=== PATIENT | female | born 1955 | race Caucasian/White ===

== ENCOUNTER 2016-11-06 16:33 | Inpatient (IN) ==
[2016-11-06] MEDS ORDERED: Ipratropium/Albuterol Neb 3 ML ONE (16:39)
[2016-11-06] MEDS ORDERED: Ipratropium/Albuterol Neb 3 ML IH ONE (16:44)
[2016-11-06] MEDS ORDERED: methylPREDNISolone 125 MG/2 ML VIAL IVP ONE (16:44)
[2016-11-06] MEDS ORDERED: 0.9 % Sodium Chloride 1,000 ML IVC ONE (16:44)
--- NOTE | 2016-11-06 16:51 | Emergency Department Note ---
Disposition Clinical Impression: Hypoxia, PRICE (acute kidney injury), Respiratory failure Breast cancer Qualifiers: Breast location: unspecified site of breast Patient gender: female Laterality: unspecified laterality Qualified Code(s): C50.919 - Malignant neoplasm of unspecified site of unspecified female breast Disposition: Admitted As Inpatient Condition: Serious Referrals: NO,PCP [Non-Partnered Physician] - SOB HPI - General Stated Complaint: PRISCA, cancer patient Time Seen by Provider: 11/06/16 16:43 Source: patient Mode of arrival: wheelchair Limitations: no limitations Nursing Notes Reviewed: Yes Vital Signs Reviewed: Yes - History of Present Illness 60-year-old female with a history of breast malignancy receiving radiation therapy, COPD, hypertension presents for evaluation from the [facility] for concerns of hypoxia. Patient was noted have a room air saturation of 77% the [facility]. He does report that she is weak. Patient states she is not short of breath. Patient does note a cough that has been chronic related to her COPD. Patient denies any change in sputum. No fevers. Patient does not have home oxygen. Patient denies any chest pain. No nausea or vomiting. No Abdominal pain. Patient states that she was diagnosed with breast cancer in May. Patient also states she has a history of renal cancer in the remote past and has had one of her kidneys removed. - Related Data Home Medications Medication Instructions Recorded Confirmed Albuterol Sulfate [Proair 2 puff IH Q6H PRN 09/16/16 11/06/16 Respiclick] Aspirin [Lo-Dose Aspirin EC] 81 mg PO DAILY 09/16/16 11/06/16 Bisoprolol/HCTZ 6.25 [Ziac 1 each PO DAILY 09/16/16 11/06/16 106.25] Losartan Potassium [Cozaar] 50 mg PO DAILY 09/16/16 11/06/16 Simvastatin [Zocor] 20 mg PO HS 09/16/16 11/06/16 Tiotropium [Spiriva] 18 mcg IH 0700 09/16/16 11/06/16 Previous Rx's Medication Instructions Recorded HydrOXYzine Pamoate [Vistaril] 50 - 100 mg PO QID PRN #60 capsule 11/05/16 Allergies Allergy/AdvReac Type Severity Reaction Status Date / Time prednisone AdvReac See Verified 11/06/16 16:45 Comments All systems ED: reviewed and negative except as stated. Constitutional: Reports: as per HPI. Denies: fever Eyes: Reports: as per HPI ENT ED: Reports: as per HPI. Denies: congestion Cardiovascular: Reports: as per HPI. Denies: chest pain Respiratory: Reports: as per HPI, cough. Denies: dyspnea, wheezes, hemoptysis, sputum production Gastrointestinal: Reports: as per HPI. Denies: abdominal pain, nausea, vomiting Genitourinary: Reports: as per HPI Musculoskeletal: Reports: as per HPI Integumentary: Reports: as per HPI Neurological: Reports: as per HPI Psychiatric: Reports: as per HPI Endocrine: Reports: as per HPI Hematological/Lymphatic: Reports: as per HPI Past Medical History - Past Medical History Medical history: Reports: cancer, COPD, CVA, hyperlipidemia, hypertension Psychiatric history: Reports: no psych history - Social History Smoking Status: Current every day smoker Alcohol use: Reports: none Drug use: Reports: none Physical Exam - General Limitations: no limitations General appearance: alert, in no apparent distress - Head Head exam: normocephalic, normal inspection - Eye Eye exam: Present: normal appearance, EOMI - ENT ENT exam: normal exam, mucous membranes moist, other (Perioral cyanosis) - Neck Neck exam: Present: normal inspection, trachea midline - Chest Chest inspection: Present: normal inspection, symmetric chest wall rise - Respiratory Respiratory exam: Present: other (Diffusely decreased breath sounds). Absent: respiratory distress, accessory muscle use - Cardiovascular Cardiovascular exam: Present: regular rate, normal rhythm - Abdominal Exam Abdominal exam: Present: soft, Non-Tender - Extremities Exam Extremities exam: Present: normal inspection. Absent: pedal edema - Neurological Exam Neurological exam: Present: alert, oriented X3 - Skin Skin exam: Present: warm, dry, intact, normal color Course Course Narrative: Patient seen and examined. Patient had room air oxygen of 78%. Patient states that she is not short of breath. Patient denies chest pain. Patient will get a cardiac and pulmonary workup. Patient started on supplemental oxygen, aerosols, steroids. Patient will also get a VQ scan to rule out pulmonary embolism since she does have one kidney a CTA with contrast may cause more harm than benefit. - Reevaluation(s) Reevaluation #1: Patient started on BiPAP since her sats were not tolerating on Non rebreather. Time: 17:15 Reevaluation #2: Patient's troponin came back elevated at 0.7. Patient is given aspirin and started on heparin. Time: 17:54 Reevaluation #3: Patient appears to have some metabolic acidosis with a CO2 of 105. Spoke with the patient regarding her respiratory status. Patient was able to verbalize consequences of not being intubated. Patient is of sound mind. Patient continues to state that she is not short of breath. V/Q scan cannot be obtained while the patient is on BiPAP or intubation. Patient is started on heparin. Time: 18:02 Vital Signs Temperature 97.8 F 11/06/16 16:35 Pulse Rate 67 11/06/16 16:35 Respiratory Rate 18 11/06/16 16:35 Blood Pressure 147/82 11/06/16 16:35 O2 Sat by Pulse Oximetry 74 L 11/06/16 16:35 Temperature 97.8 F 11/06/16 16:35 Pulse Rate 68 11/06/16 16:56 Respiratory Rate 25 11/06/16 17:23 Blood Pressure 135/85 11/06/16 16:56 O2 Sat by Pulse Oximetry 93 L 11/06/16 17:23 Oxygen Delivery Oxygen Delivery Nasal Cannula Shortness of Breath/Dyspnea - Lab Data Result diagrams: 11/06/16 17:19 11/06/16 17:19 Lab Results 11/06/16 11/06/16 11/06/16 Range/Units 17:19 17:19 17:19 WBC 11.9 H (4.3-11.1) K/mcL RBC 5.25 H (3.82-4.97) M/mcL Hgb 15.0 (11.5-15.4) g/dL Hct 49.3 H (35.3-44.9) % MCV 93.9 (83.0-100.0) fL MCH 28.6 (28.0-33.3) pg MCHC 30.4 L (31.6-35.5) g/dL RDW 16.3 H (11.5-14.5) % Plt Count 231 (140-400) K/mcL MPV 10.1 (9.4-12.4) fL Immature Gran % 1.9 (0-4) % Seg Neutrophils % 79.6 % Lymphocytes % 8.0 % Monocytes % 10.1 % Eosinophils % 0.1 % Basophils % 0.3 % Neutrophils # 9.5 H (1.6-8.9) K/mcL Lymphocytes # 1.0 (0.6-4.6) K/mcL Monocytes # 1.2 (0.0-1.3) K/mcL Eosinophils # 0.0 (0.0-0.6) K/mcL Basophils # 0.0 (0.0-0.2) K/mcL Nucleated RBCs/100 WBC 1.3 H (0) /100 WBC Immature Plt Fraction 6.9 H (1.1-6.1) % PT (9.4-12.1) Seconds INR APTT (26.0-36.0) Seconds ABG pH (7.32-7.45) pH Units ABG pCO2 (35-45) mmHg ABG pO2 (85-104) mmHg ABG HCO3 (21-27) mEQ/L ABG Total CO2 (20-26) mEq/L ABG O2 Saturation (95-98) % ABG Base Excess (-2.0 to 3.0) mEq/L Blood Gas Modality Inspired O2 % Sodium 136 (136-145) mEq/L Potassium 5.1 H (3.5-4.5) mEq/L Chloride 96 L (98-109) mEq/L Carbon Dioxide 31 H (19-29) mEq/L BUN 53 H (7-20) mg/dL Creatinine 2.70 H (0.57-1.11) mg/dL Est GFR ( Amer) 22 L (> 60) Est GFR (Non-Af Amer) 18 L (> 60) BUN/Creatinine Ratio 20 (6-26) Glucose 89 (70-99) mg/dL Calculated Osmolality 296 (280-300) Lactic Acid 1.0 (0.5-2.2) mmol/L Calcium 8.5 L (8.6-10.8) mg/dL Troponin I (0-0.03) ng/mL B-Natriuretic Peptide (0-100) pg/mL 11/06/16 11/06/16 11/06/16 Range/Units 17:19 17:19 17:19 WBC (4.3-11.1) K/mcL RBC (3.82-4.97) M/mcL Hgb (11.5-15.4) g/dL Hct (35.3-44.9) % MCV (83.0-100.0) fL MCH (28.0-33.3) pg MCHC (31.6-35.5) g/dL RDW (11.5-14.5) % Plt Count (140-400) K/mcL MPV (9.4-12.4) fL Immature Gran % (0-4) % Seg Neutrophils % % Lymphocytes % % Monocytes % % Eosinophils % % Basophils % % Neutrophils # (1.6-8.9) K/mcL Lymphocytes # (0.6-4.6) K/mcL Monocytes # (0.0-1.3) K/mcL Eosinophils # (0.0-0.6) K/mcL Basophils # (0.0-0.2) K/mcL Nucleated RBCs/100 WBC (0) /100 WBC Immature Plt Fraction (1.1-6.1) % PT 13.9 H (9.4-12.1) Seconds INR 1.3 APTT 24.5 L (26.0-36.0) Seconds ABG pH (7.32-7.45) pH Units ABG pCO2 (35-45) mmHg ABG pO2 (85-104) mmHg ABG HCO3 (21-27) mEQ/L ABG Total CO2 (20-26) mEq/L ABG O2 Saturation (95-98) % ABG Base Excess (-2.0 to 3.0) mEq/L Blood Gas Modality Inspired O2 % Sodium (136-145) mEq/L Potassium (3.5-4.5) mEq/L Chloride (98-109) mEq/L Carbon Dioxide (19-29) mEq/L BUN (7-20) mg/dL Creatinine (0.57-1.11) mg/dL Est GFR ( Amer) (> 60) Est GFR (Non-Af Amer) (> 60) BUN/Creatinine Ratio (6-26) Glucose (70-99) mg/dL Calculated Osmolality (280-300) Lactic Acid (0.5-2.2) mmol/L Calcium (8.6-10.8) mg/dL Troponin I 0.76 H* (0-0.03) ng/mL B-Natriuretic Peptide 2717 H (0-100) pg/mL 11/06/16 Range/Units 17:27 WBC (4.3-11.1) K/mcL RBC (3.82-4.97) M/mcL Hgb (11.5-15.4) g/dL Hct (35.3-44.9) % MCV (83.0-100.0) fL MCH (28.0-33.3) pg MCHC (31.6-35.5) g/dL RDW (11.5-14.5) % Plt Count (140-400) K/mcL MPV (9.4-12.4) fL Immature Gran % (0-4) % Seg Neutrophils % % Lymphocytes % % Monocytes % % Eosinophils % % Basophils % % Neutrophils # (1.6-8.9) K/mcL Lymphocytes # (0.6-4.6) K/mcL Monocytes # (0.0-1.3) K/mcL Eosinophils # (0.0-0.6) K/mcL Basophils # (0.0-0.2) K/mcL Nucleated RBCs/100 WBC (0) /100 WBC Immature Plt Fraction (1.1-6.1) % PT (9.4-12.1) Seconds INR APTT (26.0-36.0) Seconds ABG pH 7.18 L* (7.32-7.45) pH Units ABG pCO2 105 H* (35-45) mmHg ABG pO2 86 (85-104) mmHg ABG HCO3 39.2 H (21-27) mEQ/L ABG Total CO2 42.4 H (20-26) mEq/L ABG O2 Saturation 94 L (95-98) % ABG Base Excess 6.0 H (-2.0 to 3.0) mEq/L Blood Gas Modality bipap Inspired O2 100 % Sodium (136-145) mEq/L Potassium (3.5-4.5) mEq/L Chloride (98-109) mEq/L Carbon Dioxide (19-29) mEq/L BUN (7-20) mg/dL Creatinine (0.57-1.11) mg/dL Est GFR ( Amer) (> 60) Est GFR (Non-Af Amer) (> 60) BUN/Creatinine Ratio (6-26) Glucose (70-99) mg/dL Calculated Osmolality (280-300) Lactic Acid (0.5-2.2) mmol/L Calcium (8.6-10.8) mg/dL Troponin I (0-0.03) ng/mL B-Natriuretic Peptide (0-100) pg/mL - EKG Data EKG attestation: Yes I reviewed and interpreted this EKG. EKG shows normal: Reports: sinus rhythm Rate: Reports: normal Rhythm: Reports: NSR [place]/QRS: Reports: normal, right axis deviation, RBBB T wave inversions noted in: Reports: v1, v2, v3 Interpretation: Reports: nonspecific ST-T wave changes S.[email or web address] - Latoya Situation: Demographics Background: Presenting Complaint Assessment: Vital Signs, Course and respsone to treatment, Patient/Family Expectation, Pertinant Lab Results Recommendation: Barrier(s) to disposition, Recommendation based on pending studies, treatments, or consults S.BZi Report Given to: Dr. Dimitri Klein Repor Time: 18:16
--- NOTE | 2016-11-06 17:24 | Emergency Department Note ---
Disposition Clinical Impression: Hypoxia, PRICE (acute kidney injury) Breast cancer Qualifiers: Breast location: unspecified site of breast Patient gender: female Laterality: unspecified laterality Qualified Code(s): C50.919 - Malignant neoplasm of unspecified site of unspecified female breast Respiratory failure Qualifiers: Chronicity: acute on chronic Respiratory failure complication: hypercapnia Qualified Code(s): J96.22 - Acute and chronic respiratory failure with hypercapnia Disposition: Admitted As Inpatient Condition: Serious Referrals: NO,PCP [Non-Partnered Physician] - General Adult HPI - General Chief complaint: ED Shortness of Breath/Dyspnea Stated complaint: PRISCA, cancer patient Time Seen by Provider: 11/06/16 16:43 Source: patient Mode of arrival: wheelchair Limitations: no limitations Nursing Notes Reviewed: Yes Vital Signs Reviewed: Yes - History of Present Illness Pain Scale: 0 - Related Data Home Medications Medication Instructions Recorded Confirmed Albuterol Sulfate [Proair 2 puff IH Q6H PRN 09/16/16 11/06/16 Respiclick] Aspirin [Lo-Dose Aspirin EC] 81 mg PO DAILY 09/16/16 11/06/16 Bisoprolol/HCTZ 10/6.25 [Ziac 1 each PO DAILY 09/16/16 11/06/16 10/6.25] Losartan Potassium [Cozaar] 50 mg PO DAILY 09/16/16 11/06/16 Simvastatin [Zocor] 20 mg PO HS 09/16/16 11/06/16 Tiotropium [Spiriva] 18 mcg IH 0700 09/16/16 11/06/16 Previous Rx's Medication Instructions Recorded HydrOXYzine Pamoate [Vistaril] 50 - 100 mg PO QID PRN #60 capsule 11/05/16 Allergies Allergy/AdvReac Type Severity Reaction Status Date / Time prednisone AdvReac See Verified 11/06/16 16:45 Comments Constitutional: Reports: as per HPI. Denies: fever Eyes: Reports: as per HPI ENT ED: Reports: as per HPI. Denies: congestion Cardiovascular: Reports: as per HPI. Denies: chest pain Respiratory: Reports: as per HPI, cough. Denies: dyspnea, wheezes, hemoptysis, sputum production Gastrointestinal: Reports: as per HPI. Denies: abdominal pain, nausea, vomiting Genitourinary: Reports: as per HPI Musculoskeletal: Reports: as per HPI Integumentary: Reports: as per HPI Neurological: Reports: as per HPI Psychiatric: Reports: as per HPI Endocrine: Reports: as per HPI Hematological/Lymphatic: Reports: as per HPI Past Medical History - Past Medical History Medical history: Reports: cancer, COPD, CVA, hyperlipidemia, hypertension Psychiatric history: Reports: no psych history - Social History Smoking Status: Current every day smoker Alcohol use: Reports: none Drug use: Reports: none Physical Exam - General Limitations: no limitations General appearance: alert, in no apparent distress Course Vital Signs Temperature 97.8 F 11/06/16 16:35 Pulse Rate 67 11/06/16 16:35 Respiratory Rate 18 11/06/16 16:35 Blood Pressure 147/82 11/06/16 16:35 O2 Sat by Pulse Oximetry 74 L 11/06/16 16:35 Temperature 97.8 F 11/06/16 16:35 Pulse Rate 68 11/06/16 16:56 Respiratory Rate 25 11/06/16 17:23 Blood Pressure 135/85 11/06/16 16:56 O2 Sat by Pulse Oximetry 93 L 11/06/16 17:23 Oxygen Delivery Oxygen Delivery Nasal Cannula Medical Decision Making - MDM Narrative Medical decision making narrative: I examined this patient and my medical decision-making was reviewed with the RIDING TEACHER/PA/Advanced Practice Nurse/Resident Physician. I agree with the documented findings, disposition and treatment plan as described except to the extent set forth below. Patient presents today from the cancer center she has breast cancer she is getting radiation for that. She said she felt more weak than usual they noticed that her vital signs are stable except she had an oxygen saturation of 70% she does hear also. She will she is really not dyspneic. She is at high risk for fibrosis or for PE. Urinary go) some BiPAP. Chest x-ray shows ET A we probably will give additionally has one kidney so more with the VQ scan instead. We will finish the workup on her and then reassess. She most likely will need admission. She is resting comfortably actually at this time. 1740 hrs.: Patient's well's score for pulmonary embolism is moderate. Sherly on a d-dimer is I am not certain that VQ is the best study for her animals not sure she can tolerate it. However CTA worries me with the dye load for her skin surgery has one kidney. As we get the results of the d-dimer were will further disposition her. 1800 hrs.: Patient's PCO2 is elevated. She is on BiPAP which are uncertain at that is, lower her down. We talked her about intubation which she does not want to do worsening ahead and start her on heparin at the thought that she could have a PE her kidneys will not tolerate a CTA nor were her BiPAP requirement allow her to do a VQ scan so we will bring her into the hospital here will speak to the hospitalist. 1805 hrs: Her troponin is elevated, but she has not had chest pain. Her BNP is elevated that her chest x-ray is not consistent with CHF. Her creatinine is elevated in the 2-1/2 range which she has had before so she should cannot get IV contrast for a PE study. Her #9 to the hospitalist. She will either need an ICU or to [facility]. She is starting heparin. Patient's agreement with this plan as is her family her critical care time excluding separately billable procedures is 45 minutes. - Lab Data Result diagrams: 11/06/16 17:19 11/06/16 17:19 Lab Results 11/06/16 11/06/16 11/06/16 Range/Units 17:19 17:19 17:19 WBC 11.9 H (4.3-11.1) K/mcL RBC 5.25 H (3.82-4.97) M/mcL Hgb 15.0 (11.5-15.4) g/dL Hct 49.3 H (35.3-44.9) % MCV 93.9 (83.0-100.0) fL MCH 28.6 (28.0-33.3) pg MCHC 30.4 L (31.6-35.5) g/dL RDW 16.3 H (11.5-14.5) % Plt Count 231 (140-400) K/mcL MPV 10.1 (9.4-12.4) fL Immature Gran % 1.9 (0-4) % Seg Neutrophils % 79.6 % Lymphocytes % 8.0 % Monocytes % 10.1 % Eosinophils % 0.1 % Basophils % 0.3 % Neutrophils # 9.5 H (1.6-8.9) K/mcL Lymphocytes # 1.0 (0.6-4.6) K/mcL Monocytes # 1.2 (0.0-1.3) K/mcL Eosinophils # 0.0 (0.0-0.6) K/mcL Basophils # 0.0 (0.0-0.2) K/mcL Nucleated RBCs/100 WBC 1.3 H (0) /100 WBC Immature Plt Fraction 6.9 H (1.1-6.1) % PT (9.4-12.1) Seconds INR APTT (26.0-36.0) Seconds ABG pH (7.32-7.45) pH Units ABG pCO2 (35-45) mmHg ABG pO2 (85-104) mmHg ABG HCO3 (21-27) mEQ/L ABG Total CO2 (20-26) mEq/L ABG O2 Saturation (95-98) % ABG Base Excess (-2.0 to 3.0) mEq/L Blood Gas Modality Inspired O2 % Sodium 136 (136-145) mEq/L Potassium 5.1 H (3.5-4.5) mEq/L Chloride 96 L (98-109) mEq/L Carbon Dioxide 31 H (19-29) mEq/L BUN 53 H (7-20) mg/dL Creatinine 2.70 H (0.57-1.11) mg/dL Est GFR ( Amer) 22 L (> 60) Est GFR (Non-Af Amer) 18 L (> 60) BUN/Creatinine Ratio 20 (6-26) Glucose 89 (70-99) mg/dL Calculated Osmolality 296 (280-300) Lactic Acid 1.0 (0.5-2.2) mmol/L Calcium 8.5 L (8.6-10.8) mg/dL Troponin I (0-0.03) ng/mL B-Natriuretic Peptide (0-100) pg/mL 11/06/16 11/06/16 11/06/16 Range/Units 17:19 17:19 17:19 WBC (4.3-11.1) K/mcL RBC (3.82-4.97) M/mcL Hgb (11.5-15.4) g/dL Hct (35.3-44.9) % MCV (83.0-100.0) fL MCH (28.0-33.3) pg MCHC (31.6-35.5) g/dL RDW (11.5-14.5) % Plt Count (140-400) K/mcL MPV (9.4-12.4) fL Immature Gran % (0-4) % Seg Neutrophils % % Lymphocytes % % Monocytes % % Eosinophils % % Basophils % % Neutrophils # (1.6-8.9) K/mcL Lymphocytes # (0.6-4.6) K/mcL Monocytes # (0.0-1.3) K/mcL Eosinophils # (0.0-0.6) K/mcL Basophils # (0.0-0.2) K/mcL Nucleated RBCs/100 WBC (0) /100 WBC Immature Plt Fraction (1.1-6.1) % PT 13.9 H (9.4-12.1) Seconds INR 1.3 APTT 24.5 L (26.0-36.0) Seconds ABG pH (7.32-7.45) pH Units ABG pCO2 (35-45) mmHg ABG pO2 (85-104) mmHg ABG HCO3 (21-27) mEQ/L ABG Total CO2 (20-26) mEq/L ABG O2 Saturation (95-98) % ABG Base Excess (-2.0 to 3.0) mEq/L Blood Gas Modality Inspired O2 % Sodium (136-145) mEq/L Potassium (3.5-4.5) mEq/L Chloride (98-109) mEq/L Carbon Dioxide (19-29) mEq/L BUN (7-20) mg/dL Creatinine (0.57-1.11) mg/dL Est GFR ( Amer) (> 60) Est GFR (Non-Af Amer) (> 60) BUN/Creatinine Ratio (6-26) Glucose (70-99) mg/dL Calculated Osmolality (280-300) Lactic Acid (0.5-2.2) mmol/L Calcium (8.6-10.8) mg/dL Troponin I 0.76 H* (0-0.03) ng/mL B-Natriuretic Peptide 2717 H (0-100) pg/mL 11/06/16 Range/Units 17:27 WBC (4.3-11.1) K/mcL RBC (3.82-4.97) M/mcL Hgb (11.5-15.4) g/dL Hct (35.3-44.9) % MCV (83.0-100.0) fL MCH (28.0-33.3) pg MCHC (31.6-35.5) g/dL RDW (11.5-14.5) % Plt Count (140-400) K/mcL MPV (9.4-12.4) fL Immature Gran % (0-4) % Seg Neutrophils % % Lymphocytes % % Monocytes % % Eosinophils % % Basophils % % Neutrophils # (1.6-8.9) K/mcL Lymphocytes # (0.6-4.6) K/mcL Monocytes # (0.0-1.3) K/mcL Eosinophils # (0.0-0.6) K/mcL Basophils # (0.0-0.2) K/mcL Nucleated RBCs/100 WBC (0) /100 WBC Immature Plt Fraction (1.1-6.1) % PT (9.4-12.1) Seconds INR APTT (26.0-36.0) Seconds ABG pH 7.18 L* (7.32-7.45) pH Units ABG pCO2 105 H* (35-45) mmHg ABG pO2 86 (85-104) mmHg ABG HCO3 39.2 H (21-27) mEQ/L ABG Total CO2 42.4 H (20-26) mEq/L ABG O2 Saturation 94 L (95-98) % ABG Base Excess 6.0 H (-2.0 to 3.0) mEq/L Blood Gas Modality bipap Inspired O2 100 % Sodium (136-145) mEq/L Potassium (3.5-4.5) mEq/L Chloride (98-109) mEq/L Carbon Dioxide (19-29) mEq/L BUN (7-20) mg/dL Creatinine (0.57-1.11) mg/dL Est GFR ( Amer) (> 60) Est GFR (Non-Af Amer) (> 60) BUN/Creatinine Ratio (6-26) Glucose (70-99) mg/dL Calculated Osmolality (280-300) Lactic Acid (0.5-2.2) mmol/L Calcium (8.6-10.8) mg/dL Troponin I (0-0.03) ng/mL B-Natriuretic Peptide (0-100) pg/mL
[2016-11-06 17:30] LABS: Basophils % 0.3 %; Eosinophils % 0.1 %; Hematocrit 49.3 % (35.3-44.9); Immature Granulocytes % 1.9 % (0-4); Immature Platelets 6.9 % (1.1-6.1); Mean Corpuscular HGB Conc 30.4 g/dL (31.6-35.5); Mean Corpuscular Hemoglobin 28.6 pg (28.0-33.3); Mean Corpuscular Volume 93.9 fL (83.0-100.0); Mean Platelet Volume 10.1 fL (9.4-12.4); Monocytes # 1.2 K/mcL (0.0-1.3); Monocytes % 10.1 %; Neutrophils # 9.5 K/mcL (1.6-8.9); Nucleated Red Blood Cells 1.3 /100 WBC (0); Platelet Count 231 K/mcL (140-400); Red Blood Count 5.25 M/mcL (3.82-4.97); Red Cell Distribution Width 16.3 % (11.5-14.5); Segmented Neutrophils % 79.6 %
[2016-11-06 17:41] LABS: INR 1.3; Prothrombin Time 13.9 Seconds (9.4-12.1)
[2016-11-06 17:42] LABS: Calcium 8.5 mg/dL (8.6-10.8); Potassium 5.1 mEq/L (3.5-4.5)
[2016-11-06 17:44] LABS: Activated Partial Thrombo Time 24.5 Seconds (26.0-36.0)
[2016-11-06] MEDS ORDERED: Aspirin 325 MG TABLET PO ONE (17:51)
[2016-11-06 17:53] LABS: ABG HCO3 39.2 mEQ/L (21-27); ABG Oxygen Saturation 94 % (95-98); ABG PO2 86 mmHg (85-104); ABG TCO2 42.4 mEq/L (20-26)
[2016-11-06] MEDS ORDERED: *HR* Heparin 5,000 UNIT/ML VIAL IVP ONE ×2 (17:53→18:16)
[2016-11-06 17:55] LABS: ABG PCO2 105 mmHg (35-45); ABG PH 7.18 pH Units (7.32-7.45); Blood Gas FiO2 100 %
[2016-11-06] MEDS ORDERED: Heparin 25,000 UNIT/500 ML D5W 25,000 UNIT/500 ML MLS IVC SCH (18:00)
[2016-11-06] MEDS ORDERED: Naloxone 0.4 MG/ML INJ IVP PRN (19:28)
[2016-11-06] MEDS ORDERED: hydrOXYzine pamoate 25 MG CAPSULE PO PRN (19:30)
--- NOTE | 2016-11-06 19:51 | Internal Med History&Physical ---
Date of Encounter: 11/06/16 Time of Encounter: 18:30 Assessment and Plan (1) Acute respiratory failure with hypercapnia Current visit: Yes Status: Acute -Likely secondary to COPD exacerbation vs. PE -continue IV steroids and bronchodilator support -Bipap support at this time -continue to monitor O2 sat (goal O2 sat:89-92%) -follow up repeat ABG -code status: DNR/DNI -evaluate for home O2 once clinically improves (2) Acute exacerbation of chronic obstructive pulmonary disease (COPD) Current visit: Yes Status: Acute plan as listed above (3) PE (pulmonary thromboembolism) Current visit: Yes Status: Acute -Obtain V/Q scan once patient is weaned off bipap support -f/u LE doppler to r/o DVT -continue Heparin drip at this time (4) Acute kidney injury superimposed on CKD Current visit: Yes Status: Acute -hx of right nephrectomy -As per oncology records, patient was recommended to follow up with a scrubber machine 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 -Closely monitor kidney function -Hold ARB at this time -if renal function continues to deteriorate, consider nephrology eval (5) Elevated troponin Current visit: Yes Status: Acute -likely demand ischemia -no reported chest pain -given history of malignancy and hypoxia, concern for PE -f/u 2D echo -f/u serial TNI (6) Hypertension Current visit: Yes Status: Acute BP within acceptable range at this time Hold ARB due to PRICE Use Amlodipine 5mg PO qd closely monitor BP Qualifiers: Hypertension type: essential hypertension Qualified Code(s): I10 - Essential (primary) hypertension (7) Hyperkalemia Current visit: Yes Status: Acute Likely secondary to ARB No EKG changes noted at this time closely monitor electrolytes (8) Invasive ductal carcinoma of breast Current visit: Yes Status: Chronic further treatment as outpatient with primary oncologist Dr. Mckenna Qualifiers: Laterality: right Qualified Code(s): C50.911 - Malignant neoplasm of unspecified site of right female breast (9) DVT prophylaxis Current visit: Yes Status: Acute anticoagulated with heparin drip (10) Cigarette smoker Current visit: Yes Status: Acute smoking cessation counseling provided not ready to quit at this time refused nicotine replacement therapy Internal Medicine - H&P: HPI Chief complaint: shortness of breath Admitted From: Home Plans for Post Hospital Care: Transfer Detention Facility History of present illness: Ms. Goodman is a 60 year old female with past medical history of hypertension, invasive ductal carcinoma of the right breast, COPD, CVA in 2011 who was sent to the ER [facility] for evaluation of severe respiratory distress. Patient was undergoing radiation treatment for her breast CA when she became severely short of breath prompting her transfer to the ER. Upon arrival to the ER patient was noted to have O2 saturation of 74% which improved with O2 supplementation. An ABG was done, after which she was placed on BiPAP support. Even though patient was dyspneic, she remained AAO 3, and refused to be intubated. She persistently made her wishes be known to be DNR/DNI. Her is present at bedside who provided the remaining history. As per , patient is an every day smoker, and was started on prednisone 3 days ago for respiratory distress by her primary care physician. states that after taking prednisone, patient was noted to have tremors in her upper extremities, which made her more frustrated leading to increasing her daily cigarette use. In the ER there was also a concern for possible PE given patients clinical findings. Due to her severe respiratory distress and poor kidney function, VQ scan or CTA chest were not completed. Patient was prophylactically started on a heparin drip for concern for PE. During my evaluation, patient was saturating well on BiPAP. She appeared to be somnolent but arousable and able to answers questions appropriately. She denied any chest pain, palpitations, nausea, vomiting, fever or chills. PMH: invasive ductal carcinoma of right breast-diagnosed in May 2016, currently undergoing radiation therapy (has received sessions of radiation therapy PSH: s/p right breast lumpectomy with re-excision nd sentinel lymph nodes biopsy , s/p right nephrectomy secondary to malignancy Social Hx: Everyday smoker (1/2-1ppd x 30+ years) Patient has a living will and elects Alexandru Goodman as her POA/NOK. Past Med Surg Social Fam HX - Past Medical History Medical history: cancer, COPD, CVA, hyperlipidemia, hypertension Psychiatric history: no psych history - Social History Smoking Status: Current every day smoker Alcohol use: none Drug use: none Internal Medicine - H&P: Meds Albuterol Sulfate [Proair Respiclick] 2 puff IH Q6H PRN 09/16/16 [History] Aspirin [Lo-Dose Aspirin EC] 81 mg PO DAILY 09/16/16 [History] Bisoprolol/HCTZ 106.25 [Ziac 08/06.25] 1 each PO DAILY 09/16/16 [History] Losartan Potassium [Cozaar] 50 mg PO DAILY 09/16/16 [History] Simvastatin [Zocor] 20 mg PO HS 09/16/16 [History] Tiotropium [Spiriva] 18 mcg IH 0700 09/16/16 [History] HydrOXYzine Pamoate [Vistaril] 50 - 100 mg PO QID PRN #60 capsule 11/05/16 [Rx] Allergies prednisone Adverse Reaction (Verified 11/06/16 16:45) See Comments TREMORS All Systems PM: A 10-system review of systems was performed and is negative for pertinent findings except as documented above in the HPI. - Constitutional Constitutional: as per HPI - Constitutional Vitals: Temp Pulse Resp BP Pulse Ox 98.0 F 67 21 143/92 92 L 11/06/16 19:19 11/06/16 18:49 11/06/16 19:19 11/06/16 19:19 11/06/16 18:49 General appearance: Present: cooperative, mild distress (respiratory distress), A&O X 3, morbidly obese, answers questions appropriately - Head Head exam: Present: atraumatic, normocephalic - Eye Eye exam: Present: PERRL, conjuntiva pink, sclera anicteric - Respiratory Respiratory exam: Present: decreased breath sounds. Absent: wheezes - Cardiovascular Cardiovascular exam: Present: RRR, +S1, +S2 - GI/Abdominal GI/Abdominal exam: Present: distended (obese), normal bowel sounds, soft. Absent: tenderness - Extremities Exam Extremities exam: Present: pedal edema (bilateral lower extremity pitting edema) , warm, radial pulses palpable and symetrical - Neurological Exam Neurological exam: Present: alert, oriented X3 Internal Med - H&P Results - Labs CBC & Chem 7: 11/06/16 17:19 11/06/16 17:19
[2016-11-06] MEDS: Ipratropium/Albuterol Neb 3 ML IH SCH ×2 (19:58→23:47)
[2016-11-06] MEDS ORDERED: 0.9 % Sodium Chloride 500 ML ONE (20:15)
[2016-11-06] MEDS: Heparin 25,000 UNIT/500 ML D5W 25,000 UNIT/500 ML MLS IVC SCH (20:25)
[2016-11-06 21:21] LABS: ABG Base Excess 2.7 mEq/L (-2.0 to 3.0); ABG HCO3 36.9 mEQ/L (21-27); ABG Oxygen Saturation 94 % (95-98); ABG PO2 94 mmHg (85-104); ABG TCO2 40.3 mEq/L (20-26)
[2016-11-06 21:27] LABS: ABG PH 7.13 pH Units (7.32-7.45); Blood Gas FiO2 100 %
[2016-11-06 21:28] LABS: ABG PCO2 111 mmHg (35-45)
--- NOTE | 2016-11-06 23:51 | Event Note ---
Date of Encounter: 11/06/16 Time of Encounter: 21:00 Patient was noted to be worsening despite bipap support and was contacted for an update. (Alexandru Goodman) came to the hospital and claimed that patient was not herself in the ER and he is the POA and would like the patient to be intubated. A detailed discussion was held with the . Dr. Myers, RN, RT, and myself explained to the patient that upon arrival to the ER, patient was AAO x 3, however he refused to believe that and stated that she was not herself and he wants her to be intubated at this time. Decision made to intubate and transfer to the ICU at this time. Please re-address advance directives once/if patient clinically improves prior to her hospital discharge.
--- NOTE | 2016-11-07 01:15 | Event Note ---
Date of Encounter: 11/07/16 Time of Encounter: 00:35 60 year old female intubated for acute on chronic RESPIRATORY FAILURE. 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
[2016-11-07] MEDS: FentaNYL (PF) 1,000 MCG in 0.9 % Sodium Chloride 80 ML IVC SCH ×3 (02:24→23:22)
[2016-11-07 02:26] LABS: Bilirubin,Urine Negative (Negative); Blood,Urine Negative (Negative); Clarity,Urine Clear (Clear); Color,Urine Yellow (Yellow); Glucose,Urine (UA) Normal (Normal); Ketones,Urine Negative (Negative); Leukocyte Esterase,Urine Negative (Negative); Nitrite,Urine Negative (Negative); Protein,Urine Trace mg/dL (Neg-Trace); Specific Gravity,Urine 1.012 (1.010-1.025); Urobilinogen,Urine Normal (Normal)
[2016-11-07 02:29] LABS: Bacteria,Urine None Seen per hpf (None-Few); Hyaline Casts,Urine None Seen per lpf (None-Few); RBC,Urine 0-3 per hpf (0-3); Squamous Epithelial Cell,Urine Few per lpf (None-Few); WBC,Urine 0-3 per hpf (0-3)
[2016-11-07 03:00] LABS: ABG Base Excess 7.6 mEq/L (-2.0 to 3.0); ABG HCO3 32.7 mEQ/L (21-27); ABG Oxygen Saturation 89 % (95-98); ABG PCO2 46 mmHg (35-45); ABG PH 7.46 pH Units (7.32-7.45); ABG PO2 53 mmHg (85-104); ABG TCO2 34.1 mEq/L (20-26); Blood Gas FiO2 100 %
[2016-11-07 03:11] LABS: Basophils % 0.3 %; Hematocrit 47.2 % (35.3-44.9); Hemoglobin 14.4 g/dL (11.5-15.4); Lymphocytes # 0.3 K/mcL (0.6-4.6); Lymphocytes % 2.1 %; Mean Corpuscular HGB Conc 30.5 g/dL (31.6-35.5); Mean Corpuscular Hemoglobin 28.2 pg (28.0-33.3); Mean Corpuscular Volume 92.5 fL (83.0-100.0); Mean Platelet Volume 10.9 fL (9.4-12.4); Monocytes # 0.3 K/mcL (0.0-1.3); Monocytes % 2.3 %; Nucleated Red Blood Cells 2.1 /100 WBC (0); Platelet Count 189 K/mcL (140-400); Red Cell Distribution Width 15.8 % (11.5-14.5); Segmented Neutrophils % 93.3 %
[2016-11-07] MEDS: Ipratropium/Albuterol Neb 3 ML IH SCH ×6 (03:12→23:32)
[2016-11-07 03:31] LABS: Calcium 8.4 mg/dL (8.6-10.8); Magnesium 2.3 mg/dL (1.6-2.6); Phosphorous 4.8 mg/dL (2.3-4.7); Potassium 5.4 mEq/L (3.5-4.5)
[2016-11-07] MEDS: MethylPREDNISolone 40 MG/ML VIAL IVP SCH ×4 (05:09→23:23)
[2016-11-07] MEDS: Tiotropium 18 MCG inhalation IH SCH (07:45)
[2016-11-07 08:03] LABS: ABG PCO2 31 mmHg (35-45); ABG PH 7.59 pH Units (7.32-7.45)
[2016-11-07 08:04] LABS: ABG Base Excess 8.3 mEq/L (-2.0 to 3.0); ABG HCO3 29.7 mEQ/L (21-27); ABG Oxygen Saturation 96 % (95-98); ABG PO2 67 mmHg (85-104); ABG TCO2 30.7 mEq/L (20-26); Blood Gas FiO2 100 %
[2016-11-07] MEDS ORDERED: Aspirin Enteric Coated 81 MG Tablet PO SCH (09:00)
[2016-11-07] MEDS ORDERED: Bisoprolol/HCTZ 10/6.25 TABLET PO SCH (09:00)
[2016-11-07] MEDS ORDERED: amLODIPine 5 MG TABLET PO SCH (09:00)
[2016-11-07 09:29] LABS: ABG Base Excess 5.6 mEq/L (-2.0 to 3.0); ABG HCO3 30.6 mEQ/L (21-27); ABG Oxygen Saturation 96 % (95-98); ABG PCO2 44 mmHg (35-45); ABG PH 7.45 pH Units (7.32-7.45); ABG PO2 79 mmHg (85-104)
[2016-11-07 09:30] LABS: Blood Gas FiO2 90 %
[2016-11-07] MEDS: Pantoprazole 40 MG VIAL IVP SCH (10:01)
--- NOTE | 2016-11-07 10:08 | Palliative - Consult Note ---
Date of Encounter: 11/07/16 Time of Encounter: 09:45 - Assessment and Plan (1) Pain Current Visit: Yes Status: Acute Assessment and plan: Sedated, on fentanyl drip continue to monitor. (2) Dyspnea Current Visit: Yes Status: Acute Assessment and plan: She is currently on the ventilator. plan per hospitalist and ICU team Qualifiers: Dyspnea type: shortness of breath Qualified Code(s): R06.02 - Shortness of breath (3) Acute exacerbation of chronic obstructive pulmonary disease (COPD) Current Visit: Yes Status: Acute Assessment and plan: She had been on prednisone 3 days prior to event for increasing shortness of breath. And per pulmonary team. He is currently on the ventilator. (4) Acute respiratory failure with hypercapnia Current Visit: Yes Status: Acute Assessment and plan: Patient is currently on the ventilator plan per (5) Breast cancer Current Visit: No Status: Acute Assessment and plan: T1 N0 invasive ductal carcinoma of the right breast status post lumpectomy getting radiation therapy. Qualifiers: Breast location: upper outer quadrant of breast Patient gender: female Laterality: right Qualified Code(s): C50.411 - Malignant neoplasm of upper- outer quadrant of right female breast (6) Goals of care, counseling/discussion Current Visit: Yes Status: Acute Assessment and plan: She is currently a full code, earlier she was DNR DNI. Awaiting family to come in so we can discuss this further. Also care apparently her up in the air, awaiting family to come in and discuss these further. The patient had insisted on being DNR A DNI but the family insisted the patient was not herself given her hypoxemia this is entirely possible. In for a family meeting today at 11:00. long meeting with LOTUS (bringing in paperwork) pt would want dnr A status but he believes short term intubation was ok with her.l He believes she was not in her right mind yestereday and she was hypoxic. code status is now dnr CCA short term intubation is ok no trach no peg. continue aggressive care for current pulm probllems she will resume her cancer therapy when she can. Palliative-CN HPI - Data of Consult Patient: new to practice Requesting Physician: Dary Noriega Primary Care Provider: Kay Palmer - Consult Narrative Palliative Care/Comfort Measures: Palliative care Reason for consult: Goals of care History of present illness: Ms. Goodman is a 60 year old female We will came in through the emergency department yesterday history of hypertension, COPD, CVA in 2011 and T1 N0 A subjective ductal carcinoma right breast status post lumpectomy. She was getting radiation treatment when she became severely short of breath prompting transfer to the emergency department. O2 saturation of 74% that improved with O2 supplementation. ABG was done and she was placed on BiPAP support. Though she was dyspneic at that time was listed as having been awake alert and oriented 3 and refused to be intubated. Into the history of present illness wish to be DNR DNI. was there at bedside with her. However that evening when she became more obtunded blood gases worsened he was convinced that she was not herself insisted the patient would want to be intubated. She currently intubated and is now in the intensive care unit. Care is counseled regarding also care and the patient's wishes for CODE STATUS. He was started on a prophylactic heparin drip for concern for PE. Due to her kidney function she has not been able to have a VQ scan or a CT scan yet. She is currently sedated and on ventilator and unable to speak. CC: Dary Noriega Shortness of breath Past Med Surg Social Fam HX - Past Medical History Medical history: cancer, COPD, CVA, hyperlipidemia, hypertension Psychiatric history: no psych history - Social History Smoking Status: Current every day smoker Alcohol use: none Drug use: none Medications and Allergies Albuterol Sulfate [Proair Respiclick] 2 puff IH Q6H PRN 09/16/16 [History] Aspirin [Lo-Dose Aspirin EC] 81 mg PO DAILY 09/16/16 [History] Bisoprolol/HCTZ 08/06.25 [Ziac 08/06.25] 1 each PO DAILY 09/16/16 [History] Losartan Potassium [Cozaar] 50 mg PO DAILY 09/16/16 [History] Simvastatin [Zocor] 20 mg PO HS 09/16/16 [History] Tiotropium [Spiriva] 18 mcg IH 0700 09/16/16 [History] HydrOXYzine Pamoate [Vistaril] 50 - 100 mg PO QID PRN #60 capsule 11/05/16 [Rx] Allergies prednisone Adverse Reaction (Verified 11/06/16 16:45) See Comments TREMORS ROS unobtainable: due to endotracheal tube, due to mental status Palliative Care-Exam - Constitutional Vitals: Temp Pulse Resp BP Pulse Ox 97.8 F 67 14 148/76 95 11/07/16 07:51 11/07/16 09:00 11/07/16 09:00 11/07/16 09:00 11/07/16 09:00 General appearance: Present: no acute distress - Head Head Exam: Present: atraumatic, normal inspection - Eye Eye exam: Present: normal appearance - ENT ENT exam: Present: mucous membranes moist - Neck Neck exam: Present: normal inspection - Respiratory Respiratory exam: Present: decreased breath sounds, rhonchi - Cardiovascular Cardiovascular exam: Present: RRR - GI/Abdominal Exam GI/Abdominal exam: Present: normal bowel sounds (She does have blood coming from an OG tube.), soft. Absent: tenderness - Catheter Type: Urethral (Flores) - Extremities Exam Extremities exam: Present: normal inspection. Absent: pedal edema, tenderness - Neurological Exam Neurological exam: Present: altered. Absent: oriented X3 (Intubated and on vent ) - Psychiatric Psychiatric exam: Absent: agitated, anxious (Her only sedated on ventilator) - Skin Skin exam: Present: dry, warm Internal Medicine - CN: Reslt - Labs CBC & Chem 7: 11/07/16 02:51 11/07/16 02:51 Labs: Short CBC 11/07/16 Range/Units 02:51 WBC 12.8 H (4.3-11.1) K/mcL Hgb 14.4 (11.5-15.4) g/dL Hct 47.2 H (35.3-44.9) % Plt Count 189 (140-400) K/mcL Neutrophils # 12.0 H (1.6-8.9) K/mcL BMP 11/07/16 02:51 Sodium 135 L Potassium 5.4 H Chloride 99 Carbon Dioxide 21 BUN 54 H Creatinine 2.52 H Glucose 139 H Calcium 8.4 L Cardiac Enzymes 11/06/16 11/07/16 Range/Units 23:09 05:33 Troponin I 0.78 H* 0.50 H* (0-0.03) ng/mL Urine 11/07/16 Range/Units 02:12 Urine Color Yellow (Yellow) Urine Clarity Clear (Clear) Urine pH 6.0 (5.0-8.0) pH Units Ur Specific Rice 1.012 (1.010-1.025) Urine Protein Trace (Neg-Trace) mg/dL Urine Glucose (UA) Normal (Normal) mg/dL - ABG Interpretation ABG results: ABG ABG pH 7.45 pH Units (7.32-7.45) D 11/07/16 09:22 ABG pCO2 44 mmHg (35-45) 11/07/16 09:22 ABG pO2 79 mmHg (85-104) L 11/07/16 09:22 ABG O2 Saturation 96 % (95-98) 11/07/16 09:22 PT/INR, D-dimer PT 13.9 Seconds (9.4-12.1) H 11/06/16 17:19 D-Dimer 3921 ng/mLFEU (0-500) H 11/06/16 17:19 - Impressions Impressions Chest X-Ray 11/07/16 00:41 IMPRESSION: Endotracheal tube tip terminates 4 cm above the zara. Enteric tube extends below diaphragm with side port well below the GE junction. Multifocal airspace opacity, increasing in the right upper lung zone. D/ / Chris Perkins MD / Chris Perkins MD Interpreting Provider: Chris Perkins MD Chest X-Ray 11/07/16 07:16 IMPRESSION: Bilateral airspace disease, increased in the lower lungs. New or increased left pleural effusion. Findings are most compatible with pulmonary edema. Pneumonia could also have this appearance. D/ / Joselyn Velasquez Cha, MD / Joselyn Velasquez Cha, MD Interpreting Provider: Joselyn Velasquez Cha, MD Consult Discharge Plan - Plan Referrals: Kay Palmer [Primary Care Provider] - Palliative Quality Palliative Quality: Screen for Code Status: Yes (Further screening awaiting family.), Screen for Goals of Care: Yes (Further screening awaiting family.), Screen for Pain: Yes, If Pain Regimen Started, Initiate Bowel Regimen: NA, Screen for Nausea/Vomitting: Yes Code Status: 11/07/16 04:31 CODE [Resuscitation Status: Active] [RES] Routine Comment: Resuscitation Status: Full Code
[2016-11-07] MEDS: Heparin 25,000 UNIT/500 ML D5W 25,000 UNIT/500 ML MLS IVC SCH (10:55)
--- NOTE | 2016-11-07 11:57 | ECHO - Doppler Report ---
Echocardiogram Name: Sierra Goodman Date of Study: 11/07/2016 Date: 1955 Ht: 68.0 in Medical Record#: [id number] Age: 60 Wt: 292.0 lb Gender: Female BSA: 2.4 Order #: [id number] Location: [facility] Room #: IC3 Reading Physician: oKrin Zhang DO Online Program Coordinator: rPiscila Mayorga Ordering Physician: Teresa Mosley MD Primary Physician: Kay Palmer MD Indications: R/O WMA Impressions: Technically challenging study. Patient is supine on a ventilator. LVEF 55%. Not all myocardial segments were well visualized. Normal left ventricular size and systolic function. There is evidence of mild diastolic dysfunction of the left ventricle. RV is mildly dilated with normal function. No significant valvular dysfunction. There is a small sized pericardial effusion primarily seen near the lateral wall. No tamponade physiology. Left Ventricular Wall Motion: Rest Echo Findings The apex, apical inferior, mid inferior, basal inferior, apical anterior, mid anterior and basal anterior tejada were not visualized. All other wall segments showed normal motion. Findings: Study Quality * Technically sub-optimal due to clinical status. ECG Findings * Normal sinus rhythm. Aortic Valve * No aortic regurgitation. * Aortic valve not well visualized. * No aortic stenosis. Mitral Valve * No mitral regurgitation. * Normal mitral valve structure. * No mitral stenosis. Tricuspid Valve * Tricuspid valve not well visualized. * No tricuspid regurgitation. Pulmonic Valve * Pulmonic valve is not well visualized. * No pulmonic stenosis. * No pulmonic regurgitation. Pulmonary Artery * Pulmonary artery not well visualized. Left Atrium * Normal left atrial size. Right Atrium * Normal right atrial size. Left Ventricle * Mild left ventricular diastolic dysfunction. * LVEF 55%. * Normal LV chamber size, wall thickness and function. Right Ventricle * Mildly dilated RV with normal function. IVC * Patient on a ventilator. Interatrial Septum * No evidence of PFO by color Doppler. Aorta * Normally sized aortic root. Pericardium * There is a small pericardial effusion present. History Hypertension Hypercholesteremia History of Smoking Years 30 Packs 1 Measurements: BP: 165/ 76 2D Normal Values IVSd: 1.15 cm 0.6 - 1.0 cm LVIDd: 5.20 cm 3.7 - 5.6 cm LVPWd: 1.05 cm 0.6 - 1.1 cm LVIDs: 3.05 cm 1.5 - 3.6 cm AO: 2.70 cm < 4.0 cm LA: 3.20 cm 2.0 - 4.0cm %FS: 48.20 cm >25 % LVOT Diam: 2.90 cm LA volume: 26 Mitral Valve Peak E:.82 m/sec Peak A:1.17 m/sec E/A Ratio:0.7 Peak E' Lat Terrence:7.34 cm/s Peak E' Med Terrence:6.34 cm/s E/E' Lat Ratio:11.1 E/E' Med Ratio:12.9 Updated by Korin Zhang on 11/07/2016 11:51:35 AM electronically signed on 11/07/2016 11:53:23 AM with status of Final Wall Motion [place]um[place]: 1=Normal, 2=Hypokinesis, 3=Akinesis, 4=Dyskinesis, 5=Aneurysmal, 6=Hyperkinetic, X=Not Visualized (Blank)=Missing
[2016-11-07 13:06] LABS: Thyroid Stimulating Hormone 0.583 mcIU/mL (0.350-4.840); Triiodothyronine (T3) Free 1.73 pg/mL (1.71-3.71)
--- NOTE | 2016-11-07 13:10 | Pulmonology Consult Note ---
Addendum entered and electronically signed by uGero Blackwell, 11/07/16 14:00: Please note on the patient's physical exam she had dimpling of the skin of the right breast with a peau d'orange appearance. Original Note: <Guero Blackwell - Last Filed: 11/07/16 13:07> Date of Encounter: 11/07/16 Time of Encounter: 13:07 Assessment and Plan (1) Acute respiratory failure with hypercapnia Current Visit: Yes Status: Acute CO2 was 111 on presentation. Patient is intubated and sedated. ABG is much improved with mechanical ventilation. Patient has adequate oxygenation and ventilation at this time is requiring high amounts of FiO2 and PEEP. Underlying cause of respiratory failure is unclear at this time, differential includes acute pulmonary embolism, COPD exacerbation, pneumonia. Unfortunately given the patient's kidney function we cannot perform a CT angiogram to evaluate for pulmonary embolism, d-dimer was significantly elevated, on the preliminary read of her lower extremity Dopplers that did not appear to be any DVTs, echo shows mild dilatation of the right ventricle but no right heart strain. Troponin is mildly elevated in decreasing. We will continue heparin drip due to concern for pulmonary embolism. Patient does have underlying COPD which may not be adequately treated as an outpatient. Treatment plan described as below. No evidence of pneumonia at this time but will cover with antibiotics. (2) COPD (chronic obstructive pulmonary disease) Current Visit: Yes Status: Acute Patient severely hypercapnic on presentation. We will treat as exacerbation with steroids, antibiotics, bronchodilators. Patient will likely need extensive medical management of her COPD as an outpatient. Qualifiers: COPD type: unspecified COPD Qualified Code(s): J44.9 - Chronic obstructive pulmonary disease, unspecified (3) Breast cancer Current Visit: No Status: Acute Patient has [id number] breast cancer currently being treated with radiation. Patient has had a lumpectomy previously. His underlying malignancy could help contribute to clot formation. From a oncologic standpoint her prognosis is good. Qualifiers: Breast location: upper outer quadrant of breast Patient gender: female Laterality: right Qualified Code(s): C50.411 - Malignant neoplasm of upper- outer quadrant of right female breast (4) Hypertension Current Visit: Yes Status: Acute Patient is somewhat hypertensive. We will restart her home meds. hydralazine as needed for systolic blood pressure greater than 180. Qualifiers: Hypertension type: essential hypertension Qualified Code(s): I10 - Essential (primary) hypertension (5) DVT prophylaxis Current Visit: Yes Status: Acute Patient is currently on therapeutic heparin drip (6) Goals of care, counseling/discussion Current Visit: Yes Status: Acute Positive is been counseled and had a long discussion with the family. She has been made a DNR CCA per her previous wishes. states that the patient would be okay with short-term intubation but would not wish long-term life- sustaining measures including tracheostomy in PEG tube placement. We will continue to monitor the patient's clinical status and reassess goals of care based on the patient's clinical course. History of Present Illness Consult date: 11/07/16 Requesting physician: Raza Myers Chief complaint: Respiratory distress History of present illness: Patient is a 60-year-old female with history of breast cancer, COPD, hypertension who presented last night in respiratory distress. Per the the patient had been confused for the last several days and somnolent at times until last night she had difficulty breathing and was brought to the emergency department. Patient was admitted to the floor and her respiratory status continued to decline so the patient was then intubated and transferred to the intensive care unit. At the time of my exam the patient is intubated and sedated. She does respond to painful stimuli. She does not appear to be in any acute distress. Past Med Surg Social Fam HX - Past Medical History Medical history: cancer, COPD, CVA, hyperlipidemia, hypertension Psychiatric history: no psych history - Social History Smoking Status: Current every day smoker Alcohol use: none Drug use: none Medications and Allergies Albuterol Sulfate [Proair Respiclick] 2 puff IH Q6H PRN 09/16/16 [History] Aspirin [Lo-Dose Aspirin EC] 81 mg PO DAILY 09/16/16 [History] Bisoprolol/HCTZ 08/06.25 [Ziac ] 1 each PO DAILY 09/16/16 [History] Losartan Potassium [Cozaar] 50 mg PO DAILY 09/16/16 [History] Simvastatin [Zocor] 20 mg PO HS 09/16/16 [History] Tiotropium [Spiriva] 18 mcg IH 0700 09/16/16 [History] HydrOXYzine Pamoate [Vistaril] 50 - 100 mg PO QID PRN #60 capsule 11/05/16 [Rx] Allergies prednisone Adverse Reaction (Verified 11/06/16 16:45) See Comments TREMORS ROS unobtainable: due to endotracheal tube All Systems: A 10-system review of systems was performed and is negative for pertinent findings except as documented above in the HPI. Physical Examination Vital Signs: Vital Signs, Last 4 Hours Pulse Resp BP Pulse Ox 11/07/16 11:28 14 95 11/07/16 10:00 69 14 153/76 95 General appearance: no acute distress Effort: normal Auscultation: bilateral: rhonchi Cardiovascular: regular rate and rhythm Gastrointestinal: normoactive bowel sounds, soft, non-tender, non-distended Extremities: no cyanosis, no clubbing, edema (1+) unable to assess due to mental status Ventilator Settings Ventilator Settings: Ventilator Settings, Last 8 Hours Ventilator Mode A/C Ventilator Mode A/C Ventilator Mode VC+ Ventilator Mode A/C Ventilator Mode A/C Ventilator Mode A/C Ventilator Mode A/C Ventilator Mode A/C Ventilator Mode A/C Ventilator Tidal Volume 600 Setting Ventilator Tidal Volume 600 Setting Ventilator Tidal Volume 500 Setting Ventilator Tidal Volume 600 Setting Ventilator Tidal Volume 600 Setting Ventilator Tidal Volume 600 Setting Ventilator Tidal Volume 600 Setting Ventilator Tidal Volume 600 Setting Ventilator Tidal Volume 600 Setting Ventilator Respiratory Rate 14 Setting Ventilator Respiratory Rate 18 Setting Ventilator Respiratory Rate 14 Setting Ventilator Respiratory Rate 18 Setting Ventilator Respiratory Rate 18 Setting Ventilator Respiratory Rate 18 Setting Ventilator Respiratory Rate 18 Setting Ventilator Respiratory Rate 18 Setting Ventilator Respiratory Rate 18 Setting Actual Respiratory Rate 14 Actual Respiratory Rate 18 Actual Respiratory Rate 18 Actual Respiratory Rate 18 Actual Respiratory Rate 18 Actual Respiratory Rate 18 Actual Respiratory Rate 18 Positive End Expiratory 10 Pressure Positive End Expiratory 10 Pressure Positive End Expiratory 10 Pressure Positive End Expiratory 10 Pressure Positive End Expiratory 10 Pressure Positive End Expiratory 5 Pressure Positive End Expiratory 10 Pressure Positive End Expiratory 10 Pressure Positive End Expiratory 10 Pressure Peak Inspiratory Airway 31 Pressure Peak Inspiratory Airway 36 Pressure Peak Inspiratory Airway 36 Pressure Peak Inspiratory Airway 36 Pressure Peak Inspiratory Airway 36 Pressure Peak Inspiratory Airway 36 Pressure Peak Inspiratory Airway 35 Pressure Results - Laboratory Findings CBC and BMP: 11/07/16 02:51 11/07/16 02:51 ABG ABG pH 7.45 pH Units (7.32-7.45) D 11/07/16 09:22 ABG pCO2 44 mmHg (35-45) 11/07/16 09:22 ABG pO2 79 mmHg (85-104) L 11/07/16 09:22 ABG O2 Saturation 96 % (95-98) 11/07/16 09:22 PT/INR, D-dimer PT 13.9 Seconds (9.4-12.1) H 11/06/16 17:19 D-Dimer 3921 ng/mLFEU (0-500) H 11/06/16 17:19 Abnormal lab findings: Abnormal lab results WBC 12.8 K/mcL (4.3-11.1) H 11/07/16 02:51 RBC 5.10 M/mcL (3.82-4.97) H 11/07/16 02:51 Hct 47.2 % (35.3-44.9) H 11/07/16 02:51 MCHC 30.5 g/dL (31.6-35.5) L 11/07/16 02:51 RDW 15.8 % (11.5-14.5) H 11/07/16 02:51 Neutrophils # 12.0 K/mcL (1.6-8.9) H 11/07/16 02:51 Lymphocytes # 0.3 K/mcL (0.6-4.6) L 11/07/16 02:51 Nucleated RBCs/100 WBC 2.1 /100 WBC (0) H 11/07/16 02:51 Immature Plt Fraction 6.9 % (1.1-6.1) H 11/06/16 17:19 PT 13.9 Seconds (9.4-12.1) H 11/06/16 17:19 APTT 108.8 Seconds (26.0-36.0) H D 11/07/16 09:08 D-Dimer 3921 ng/mLFEU (0-500) H 11/06/16 17:19 ABG pO2 79 mmHg (85-104) L 11/07/16 09:22 ABG HCO3 30.6 mEQ/L (21-27) H 11/07/16 09:22 ABG Total CO2 32.0 mEq/L (20-26) H 11/07/16 09:22 ABG Base Excess 5.6 mEq/L (-2.0 to 3.0) H 11/07/16 09:22 Sodium 135 mEq/L (136-145) L 11/07/16 02:51 Potassium 5.4 mEq/L (3.5-4.5) H 11/07/16 02:51 BUN 54 mg/dL (7-20) H 11/07/16 02:51 Creatinine 2.52 mg/dL (0.57-1.11) H 11/07/16 02:51 Est GFR ( Amer) 24 (> 60) L 11/07/16 02:51 Est GFR (Non-Af Amer) 19 (> 60) L 11/07/16 02:51 Glucose 139 mg/dL (70-99) H 11/07/16 02:51 POC Glucose 142 (58-89) H 11/07/16 00:18 Calcium 8.4 mg/dL (8.6-10.8) L 11/07/16 02:51 Phosphorus 4.8 mg/dL (2.3-4.7) H 11/07/16 02:51 Troponin I 0.50 ng/mL (0-0.03) H* 11/07/16 05:33 B-Natriuretic Peptide 2717 pg/mL (0-100) H 11/06/16 17:19 - Clinical Findings Intake & Output: Intake & Output 11/06/16 11/07/16 11/07/16 23:59 07:59 15:59 Intake Total 0 / 1000 547 / 547 653 / 653 Output Total 1725 / 1725 Balance 0 / 1000 -1178 / -1178 653 / 653 Weight 132.8 kg Consult Discharge Plan - Plan Referrals: Kay Palmer [Primary Care Provider] - <Flower Swanson - Last Filed: 11/07/16 14:49> Date of Encounter: 11/07/16 All Systems: A 10-system review of systems was performed and is negative for pertinent findings except as documented above in the HPI. Physical Examination Vital Signs: Vital Signs, Last 4 Hours Temp Pulse Resp BP Pulse Ox 11/07/16 14:00 72 18 135/67 91 L 11/07/16 13:46 18 91 L 11/07/16 13:18 98.1 F 11/07/16 12:00 76 11/07/16 11:28 14 95 11/07/16 11:00 67 14 149/77 95 Ventilator Settings Ventilator Settings: Ventilator Settings, Last 8 Hours Ventilator Mode A/C Ventilator Mode A/C Ventilator Mode A/C Ventilator Mode A/C Ventilator Mode A/C Ventilator Mode VC+ Ventilator Mode A/C Ventilator Mode A/C Ventilator Mode A/C Ventilator Mode A/C Ventilator Mode A/C Ventilator Tidal Volume 600 Setting Ventilator Tidal Volume 600 Setting Ventilator Tidal Volume 600 Setting Ventilator Tidal Volume 600 Setting Ventilator Tidal Volume 600 Setting Ventilator Tidal Volume 500 Setting Ventilator Tidal Volume 600 Setting Ventilator Tidal Volume 600 Setting Ventilator Tidal Volume 600 Setting Ventilator Tidal Volume 600 Setting Ventilator Tidal Volume 600 Setting Ventilator Respiratory Rate 12 Setting Ventilator Respiratory Rate 12 Setting Ventilator Respiratory Rate 14 Setting Ventilator Respiratory Rate 18 Setting Ventilator Respiratory Rate 18 Setting Ventilator Respiratory Rate 14 Setting Ventilator Respiratory Rate 18 Setting Ventilator Respiratory Rate 18 Setting Ventilator Respiratory Rate 18 Setting Ventilator Respiratory Rate 18 Setting Ventilator Respiratory Rate 18 Setting Actual Respiratory Rate 12 Actual Respiratory Rate 12 Actual Respiratory Rate 14 Actual Respiratory Rate 18 Actual Respiratory Rate 18 Actual Respiratory Rate 18 Actual Respiratory Rate 18 Actual Respiratory Rate 18 Actual Respiratory Rate 18 Positive End Expiratory 10 Pressure Positive End Expiratory 10 Pressure Positive End Expiratory 10 Pressure Positive End Expiratory 10 Pressure Positive End Expiratory 10 Pressure Positive End Expiratory 10 Pressure Positive End Expiratory 10 Pressure Positive End Expiratory 10 Pressure Positive End Expiratory 5 Pressure Positive End Expiratory 10 Pressure Positive End Expiratory 10 Pressure Peak Inspiratory Airway 28 Pressure Peak Inspiratory Airway 28 Pressure Peak Inspiratory Airway 31 Pressure Peak Inspiratory Airway 35 Pressure Peak Inspiratory Airway 36 Pressure Peak Inspiratory Airway 36 Pressure Peak Inspiratory Airway 36 Pressure Peak Inspiratory Airway 36 Pressure Peak Inspiratory Airway 36 Pressure Results - Laboratory Findings CBC and BMP: 11/07/16 02:51 11/07/16 02:51 ABG ABG pH 7.45 pH Units (7.32-7.45) D 11/07/16 09:22 ABG pCO2 44 mmHg (35-45) 11/07/16 09:22 ABG pO2 79 mmHg (85-104) L 11/07/16 09:22 ABG O2 Saturation 96 % (95-98) 11/07/16 09:22 PT/INR, D-dimer PT 13.9 Seconds (9.4-12.1) H 11/06/16 17:19 D-Dimer 3921 ng/mLFEU (0-500) H 11/06/16 17:19 Abnormal lab findings: Abnormal lab results WBC 12.8 K/mcL (4.3-11.1) H 11/07/16 02:51 RBC 5.10 M/mcL (3.82-4.97) H 11/07/16 02:51 Hct 47.2 % (35.3-44.9) H 11/07/16 02:51 MCHC 30.5 g/dL (31.6-35.5) L 11/07/16 02:51 RDW 15.8 % (11.5-14.5) H 11/07/16 02:51 Neutrophils # 12.0 K/mcL (1.6-8.9) H 11/07/16 02:51 Lymphocytes # 0.3 K/mcL (0.6-4.6) L 11/07/16 02:51 Nucleated RBCs/100 WBC 2.1 /100 WBC (0) H 11/07/16 02:51 Immature Plt Fraction 6.9 % (1.1-6.1) H 11/06/16 17:19 PT 13.9 Seconds (9.4-12.1) H 11/06/16 17:19 APTT 108.8 Seconds (26.0-36.0) H D 11/07/16 09:08 D-Dimer 3921 ng/mLFEU (0-500) H 11/06/16 17:19 ABG pO2 79 mmHg (85-104) L 11/07/16 09:22 ABG HCO3 30.6 mEQ/L (21-27) H 11/07/16 09:22 ABG Total CO2 32.0 mEq/L (20-26) H 11/07/16 09:22 ABG Base Excess 5.6 mEq/L (-2.0 to 3.0) H 11/07/16 09:22 Sodium 135 mEq/L (136-145) L 11/07/16 02:51 Potassium 5.4 mEq/L (3.5-4.5) H 11/07/16 02:51 BUN 54 mg/dL (7-20) H 11/07/16 02:51 Creatinine 2.52 mg/dL (0.57-1.11) H 11/07/16 02:51 Est GFR ( Amer) 24 (> 60) L 11/07/16 02:51 Est GFR (Non-Af Amer) 19 (> 60) L 11/07/16 02:51 Glucose 139 mg/dL (70-99) H 11/07/16 02:51 POC Glucose 142 (58-89) H 11/07/16 00:18 Calcium 8.4 mg/dL (8.6-10.8) L 11/07/16 02:51 Phosphorus 4.8 mg/dL (2.3-4.7) H 11/07/16 02:51 Troponin I 0.50 ng/mL (0-0.03) H* 11/07/16 05:33 B-Natriuretic Peptide 2717 pg/mL (0-100) H 11/06/16 17:19 - Clinical Findings Intake & Output: Intake & Output 11/06/16 11/07/16 11/07/16 23:59 07:59 15:59 Intake Total 0 / 1000 547 / 547 653 / 653 Output Total 1725 / 1725 700 / 700 Balance 0 / 1000 -1178 / -1178 -47 / -47 Weight 132.8 kg - Attending Attestation I examined this patient and my medical decision-making was reviewed with the CORPORATE EXECUTIVE CHEF/PA/Advanced Practice Nurse/Resident Physician. I agree with the documented findings, disposition and treatment plan as described except to the extent set forth below. Patient seen and examined. Labs, radiology, chart personally reviewed. Agree with resident's history and physical, assessment, plan with following comments: DIGITAL FORENSICS INVESTIGATOR: Patient on sedation and respond to painful stimuli, Pulmonary: Acceptable oxygenation and ventilation. changed vent setting to lower minute ventilation to prevent rebound metabolic alkalosis. Continue anticoagulation since there is a possibility of pulmonary embolism and not good candidate for CTA due to her renal disease and she is on vent can't do V/Q scan. Cardiovascular: stable GI: Nutrition per dietary and GI prophylaxis per routine Heme: DVT prophylaxis per routine ID: Continue antibiotics and plan to de-escalation Renal; urine out put and renal funtion reviewed Endorcine: blood glucose is monitored Lines: all lines checked and no evidence of infections Skin: skin care to prevent pressure ulcers per nursing routine care Palliative care input appreciated. Patient code status change to DNR. I spent 35 min of Critical Care time with this patient. It involved decision making of high complexity to assess, manipulate, and support vital organ system failure and/or to prevent further life threatening deterioration of the patient' s condition. The time involved in the performance of separately reportable procedures was not counted toward critical care time.
--- NOTE | 2016-11-07 13:43 | Venous Imaging Report ---
LE Venous Duplex Patient Name:Sierra Goodman Order Number:[id number] Procedure Date:11/07/2016 Date:1955ge:60 yrs Gender:Female Location:[facility] Room #: IC3 Assembly Line Driver:Priscila Mayorga Referring MD:Teresa Mosley MD medical imaging technologist:Kay Palmer MD Reading MD:Jm Acevedo MD Primary Indications:R/O DVT Secondary Indications: Impressions: Bilateral lower extremity: normal superficial and deep exam. Recommendations: Preliminary given to Dr Coleman in ICU. Findings Venous Duplex Results: Right: Venous imaging of the lower extremity reveals full patency and normal vessel compressibility of the right distal iliac, right common femoral, right superficial femoral, right popliteal, right posterior tibial, right peroneal, right great saphenous and right lesser saphenous. Doppler signals in the evaluated veins were normal. Left: Venous imaging of the lower extremity reveals full patency and normal vessel compressibility of the left distal iliac, left common femoral, left superficial femoral, left popliteal, left posterior tibial, left peroneal, left great saphenous and left lesser saphenous. Doppler signals in the evaluated veins were normal. Prior Study: No prior study available for comparison. Lower Extremity Venous Duplex Side Vein Compress Spontaneous Flow Augment Diameter (cm) Depth (cm) Right Distal Iliac Normal Yes Phasic Yes Right Common Femoral Normal Yes Phasic Yes Right Superficial Femoral Normal Yes Phasic Yes Right Popliteal Normal Yes Phasic Yes Right Posterior Tibial Normal Yes Phasic Yes Right Peroneal Normal Yes Phasic Yes Right Great Saphenous Normal Yes Phasic Yes Right Lesser Saphenous Normal Yes Phasic Yes Left Distal Iliac Normal Yes Phasic Yes Left Common Femoral Normal Yes Phasic Yes Left Superficial Femoral Normal Yes Phasic Yes Left Popliteal Normal Yes Phasic Yes Left Posterior Tibial Normal Yes Phasic Yes Left Peroneal Normal Yes Phasic Yes Left Great Saphenous Normal Yes Phasic Yes Left Lesser Saphenous Normal Yes Phasic Yes Updated by Jm Acevedo MD on 11/07/2016 1:37:05 PM electronically signed on 11/07/2016 1:37:19 PM with status of Final
[2016-11-07] MEDS ORDERED: Azithromycin 500 MG in D5% in Water 250 ML IVPB ONE (15:58)
[2016-11-07] MEDS: Budesonide/Formoterol 160/4.5 MDI IH SCH (19:46)
[2016-11-08 00:30] LABS: Basophils % 0.1 %; Hematocrit 45.4 % (35.3-44.9); Hemoglobin 14.3 g/dL (11.5-15.4); Immature Granulocytes % 0.6 % (0-4); Lymphocytes # 0.2 K/mcL (0.6-4.6); Lymphocytes % 1.6 %; Mean Corpuscular HGB Conc 31.5 g/dL (31.6-35.5); Mean Corpuscular Hemoglobin 28.6 pg (28.0-33.3); Mean Corpuscular Volume 90.8 fL (83.0-100.0); Mean Platelet Volume 11.1 fL (9.4-12.4); Monocytes # 0.6 K/mcL (0.0-1.3); Monocytes % 4.4 %; Neutrophils # 12.7 K/mcL (1.6-8.9); Nucleated Red Blood Cells 0.3 /100 WBC (0); Platelet Count 198 K/mcL (140-400); Red Cell Distribution Width 16.2 % (11.5-14.5); Segmented Neutrophils % 93.3 %
[2016-11-08 00:43] LABS: Albumin 2.8 g/dL (3.5-5.0); Albumin/Globulin Ratio 0.9 (1.1-2.2); Bilirubin,Total 0.4 mg/dL (0.2-1.2); Calcium 8.6 mg/dL (8.6-10.8); Ionized Calcium 1.05 mmol/L (1.15-1.35); Phosphorous 5.6 mg/dL (2.3-4.7); Total Protein 5.8 g/dL (6.0-8.3)
[2016-11-08 00:44] LABS: Potassium 4.2 mEq/L (3.5-4.5)
[2016-11-08] MEDS: Ipratropium/Albuterol Neb 3 ML IH SCH ×6 (03:27→23:55)
[2016-11-08 06:22] LABS: ABG Base Excess 9.8 mEq/L (-2.0 to 3.0); ABG Oxygen Saturation 90 % (95-98); ABG PCO2 53 mmHg (35-45); ABG PH 7.44 pH Units (7.32-7.45); ABG PO2 56 mmHg (85-104); ABG TCO2 37.6 mEq/L (20-26)
[2016-11-08 06:28] LABS: Blood Gas FiO2 80 %
[2016-11-08] MEDS ORDERED: *HR* Dextrose 50 % in Water (Syg) 50 ML SYRINGE IVP PRN (07:05)
[2016-11-08] MEDS ORDERED: Dextrose Gel 15 GM PO PRN ×2 (07:05)
[2016-11-08] MEDS ORDERED: D5% in Water 1,000 ML IV PRN (07:05)
[2016-11-08] MEDS ORDERED: Magnesium Sulfate 2 GM in D5% in Water 100 ML IVPB PRN (07:06)
[2016-11-08] MEDS ORDERED: Sodium Phosphate 30 MMOL in D5% in Water 100 ML IVPB PRN (07:06)
[2016-11-08] MEDS ORDERED: Furosemide 40 MG/4 ML VIAL IVP ONE (07:10)
--- NOTE | 2016-11-08 07:22 | Pulmonology Progress Note ---
<Guero Blackwell - Last Filed: 11/08/16 09:36> Date of Encounter: 11/08/16 Time of Encounter: 07:20 Assessment and Plan (1) Acute respiratory failure with hypercapnia Current Visit: Yes Status: Acute Stable but critical. Patient still requiring large amounts of FiO2 and PEEP. At this point the etiology remains elusive. PE, COPD exacerbation, pneumonia, pulmonary edema are also considerations. Treating with heparin drip, antibiotics, steroids. We give lasix for diuresis. (2) COPD (chronic obstructive pulmonary disease) Current Visit: Yes Status: Acute With possible exacerbation. We will treat with bronchodilators, steroids, antibiotics. We will continue to monitor. Qualifiers: COPD type: unspecified COPD Qualified Code(s): J44.9 - Chronic obstructive pulmonary disease, unspecified (3) Breast cancer Current Visit: No Status: Acute Stage I. Currently receiving radiation therapy. Could possibly be a contributing factor to the development of venous thromboembolism. Qualifiers: Breast location: upper outer quadrant of breast Patient gender: female Laterality: right Qualified Code(s): C50.411 - Malignant neoplasm of upper- outer quadrant of right female breast (4) Hypertension Current Visit: Yes Status: Acute Patient was hypertensive yesterday however blood pressure has normalized and is running low. This morning she is 100/70. Will hold home blood pressure medications. Qualifiers: Hypertension type: essential hypertension Qualified Code(s): I10 - Essential (primary) hypertension (5) DVT prophylaxis Current Visit: Yes Status: Acute Patient is on therapeutic heparin drip. (6) Goals of care, counseling/discussion Current Visit: Yes Status: Acute Patient is DNR CCA. Palliative is following and we appreciate their assistance. The brought paperwork that designated him medical power of research staff member. We will continue with aggressive measures at this time however the states that the patient would not wish long-term life-sustaining measures including tracheostomy and PEG tube placement. Subjective Principal diagnosis: Respiratory failure Interval history: Patient seen and examined at bedside. Patient remains intubated and sedated. She will respond to loud verbal stimuli. She appears to be resting comfortably and is in no acute distress. Objective PUL Vital signs: Last Vital Signs Temp 97.9 F 11/08/16 07:16 Pulse 71 11/08/16 06:00 Resp 16 11/08/16 06:00 BP 108/64 11/08/16 06:00 Pulse Ox 87 L 11/08/16 06:00 General appearance: no acute distress ENT: oropharynx moist Effort: normal Auscultation: bilateral: rhonchi (Right greater than left) Cardiovascular: regular rate and rhythm Gastrointestinal: hypoactive bowel sounds, soft, non-tender, non-distended Integumentary: other (Peau d'orange appearance of the skin of the right breast) Extremities: no cyanosis, no clubbing, edema (Trace) unable to assess due to mental status Ventilator Settings Ventilator Settings: Ventilator Settings, Last 8 Hours Ventilator Mode VC+ Ventilator Mode A/C Ventilator Mode A/C Ventilator Mode A/C Ventilator Mode A/C Ventilator Mode A/C Ventilator Mode A/C Ventilator Mode A/C Ventilator Mode A/C Ventilator Mode A/C Ventilator Mode A/C Ventilator Mode A/C Ventilator Tidal Volume 450 Setting Ventilator Tidal Volume 450 Setting Ventilator Tidal Volume 450 Setting Ventilator Tidal Volume 450 Setting Ventilator Tidal Volume 450 Setting Ventilator Tidal Volume 450 Setting Ventilator Tidal Volume 450 Setting Ventilator Tidal Volume 450 Setting Ventilator Tidal Volume 450 Setting Ventilator Tidal Volume 450 Setting Ventilator Tidal Volume 450 Setting Ventilator Tidal Volume 450 Setting Ventilator Respiratory Rate 12 Setting Ventilator Respiratory Rate 12 Setting Ventilator Respiratory Rate 12 Setting Ventilator Respiratory Rate 12 Setting Ventilator Respiratory Rate 12 Setting Ventilator Respiratory Rate 12 Setting Ventilator Respiratory Rate 12 Setting Ventilator Respiratory Rate 12 Setting Ventilator Respiratory Rate 12 Setting Ventilator Respiratory Rate 12 Setting Ventilator Respiratory Rate 12 Setting Ventilator Respiratory Rate 12 Setting Actual Respiratory Rate 17 Actual Respiratory Rate 12 Actual Respiratory Rate 17 Actual Respiratory Rate 17 Actual Respiratory Rate 17 Actual Respiratory Rate 12 Actual Respiratory Rate 12 Actual Respiratory Rate 12 Actual Respiratory Rate 12 Actual Respiratory Rate 12 Actual Respiratory Rate 12 Positive End Expiratory 10 Pressure Positive End Expiratory 10 Pressure Positive End Expiratory 10 Pressure Positive End Expiratory 10 Pressure Positive End Expiratory 10 Pressure Positive End Expiratory 10 Pressure Positive End Expiratory 10 Pressure Positive End Expiratory 10 Pressure Positive End Expiratory 10 Pressure Positive End Expiratory 10 Pressure Positive End Expiratory 10 Pressure Positive End Expiratory 10 Pressure Peak Inspiratory Airway 30 Pressure Peak Inspiratory Airway 29 Pressure Peak Inspiratory Airway 29 Pressure Peak Inspiratory Airway 29 Pressure Peak Inspiratory Airway 29 Pressure Peak Inspiratory Airway 28 Pressure Peak Inspiratory Airway 28 Pressure Peak Inspiratory Airway 28 Pressure Peak Inspiratory Airway 30 Pressure Peak Inspiratory Airway 30 Pressure Peak Inspiratory Airway 30 Pressure Results - Laboratory Findings CBC and BMP: 11/08/16 00:09 11/08/16 00:09 ABG ABG pH 7.44 pH Units (7.32-7.45) 11/08/16 06:14 ABG pCO2 53 mmHg (35-45) H 11/08/16 06:14 ABG pO2 56 mmHg (85-104) L 11/08/16 06:14 ABG O2 Saturation 90 % (95-98) L 11/08/16 06:14 PT/INR, D-dimer PT 13.9 Seconds (9.4-12.1) H 11/06/16 17:19 D-Dimer 3921 ng/mLFEU (0-500) H 11/06/16 17:19 Abnormal lab findings: Abnormal lab results WBC 13.6 K/mcL (4.3-11.1) H 11/08/16 00:09 RBC 5.00 M/mcL (3.82-4.97) H 11/08/16 00:09 Hct 45.4 % (35.3-44.9) H 11/08/16 00:09 MCHC 31.5 g/dL (31.6-35.5) L 11/08/16 00:09 RDW 16.2 % (11.5-14.5) H 11/08/16 00:09 Neutrophils # 12.7 K/mcL (1.6-8.9) H 11/08/16 00:09 Lymphocytes # 0.2 K/mcL (0.6-4.6) L 11/08/16 00:09 Nucleated RBCs/100 WBC 0.3 /100 WBC (0) H 11/08/16 00:09 Immature Plt Fraction 6.9 % (1.1-6.1) H 11/06/16 17:19 PT 13.9 Seconds (9.4-12.1) H 11/06/16 17:19 APTT 77.8 Seconds (26.0-36.0) H 11/08/16 06:20 D-Dimer 3921 ng/mLFEU (0-500) H 11/06/16 17:19 ABG pCO2 53 mmHg (35-45) H 11/08/16 06:14 ABG pO2 56 mmHg (85-104) L 11/08/16 06:14 ABG HCO3 36.0 mEQ/L (21-27) H 11/08/16 06:14 ABG Total CO2 37.6 mEq/L (20-26) H 11/08/16 06:14 ABG O2 Saturation 90 % (95-98) L 11/08/16 06:14 ABG Base Excess 9.8 mEq/L (-2.0 to 3.0) H 11/08/16 06:14 Chloride 96 mEq/L (98-109) L 11/08/16 00:09 Carbon Dioxide 31 mEq/L (19-29) H 11/08/16 00:09 BUN 50 mg/dL (7-20) H 11/08/16 00:09 Creatinine 2.13 mg/dL (0.57-1.11) H 11/08/16 00:09 Est GFR ( Amer) 29 (> 60) L 11/08/16 00:09 Est GFR (Non-Af Amer) 24 (> 60) L 11/08/16 00:09 Glucose 202 mg/dL (70-99) H 11/08/16 00:09 POC Glucose 204 (58-89) H 11/08/16 00:27 Calculated Osmolality 305 (280-300) H 11/08/16 00:09 Ionized Calcium 1.05 mmol/L (1.15-1.35) L 11/08/16 00:09 Phosphorus 5.6 mg/dL (2.3-4.7) H 11/08/16 00:09 AST 42 Units/L (5-34) H 11/08/16 00:09 ALT 134 Units/L (0-55) H 11/08/16 00:09 Troponin I 0.50 ng/mL (0-0.03) H* 11/07/16 05:33 B-Natriuretic Peptide 2717 pg/mL (0-100) H 11/06/16 17:19 Serum Total Protein 5.8 g/dL (6.0-8.3) L 11/08/16 00:09 Albumin 2.8 g/dL (3.5-5.0) L 11/08/16 00:09 Albumin/Globulin Ratio 0.9 (1.1-2.2) L 11/08/16 00:09 - Diagnostic Findings Chest x-ray: report reviewed, image reviewed - Clinical Findings Intake & Output: Intake & Output 11/07/16 11/07/16 11/08/16 15:59 23:59 07:59 Intake Total 753 / 753 548 / 548 1017 / 1017 Output Total 700 / 700 700 / 700 475 / 475 Balance 53 / 53 -152 / -152 542 / 542 Consult Discharge Plan - Plan Referrals: Kay Palmer [Primary Care Provider] - <Flower Swanson - Last Filed: 11/08/16 09:53> Date of Encounter: 11/08/16 Objective PUL Vital signs: Last Vital Signs Temp 97.9 F 11/08/16 07:16 Pulse 74 11/08/16 09:14 Resp 19 11/08/16 09:14 BP 99/57 11/08/16 09:14 Pulse Ox 87 L 11/08/16 09:14 Ventilator Settings Ventilator Settings: Ventilator Settings, Last 8 Hours Ventilator Mode VC+ Ventilator Mode VC+ Ventilator Mode A/C Ventilator Mode A/C Ventilator Mode A/C Ventilator Mode A/C Ventilator Mode A/C Ventilator Mode A/C Ventilator Mode A/C Ventilator Tidal Volume 450 Setting Ventilator Tidal Volume 450 Setting Ventilator Tidal Volume 450 Setting Ventilator Tidal Volume 450 Setting Ventilator Tidal Volume 450 Setting Ventilator Tidal Volume 450 Setting Ventilator Tidal Volume 450 Setting Ventilator Tidal Volume 450 Setting Ventilator Tidal Volume 450 Setting Ventilator Respiratory Rate 12 Setting Ventilator Respiratory Rate 12 Setting Ventilator Respiratory Rate 12 Setting Ventilator Respiratory Rate 12 Setting Ventilator Respiratory Rate 12 Setting Ventilator Respiratory Rate 12 Setting Ventilator Respiratory Rate 12 Setting Ventilator Respiratory Rate 12 Setting Ventilator Respiratory Rate 12 Setting Actual Respiratory Rate 18 Actual Respiratory Rate 17 Actual Respiratory Rate 12 Actual Respiratory Rate 17 Actual Respiratory Rate 17 Actual Respiratory Rate 17 Actual Respiratory Rate 12 Actual Respiratory Rate 12 Positive End Expiratory 10 Pressure Positive End Expiratory 10 Pressure Positive End Expiratory 10 Pressure Positive End Expiratory 10 Pressure Positive End Expiratory 10 Pressure Positive End Expiratory 10 Pressure Positive End Expiratory 10 Pressure Positive End Expiratory 10 Pressure Positive End Expiratory 10 Pressure Peak Inspiratory Airway 31 Pressure Peak Inspiratory Airway 30 Pressure Peak Inspiratory Airway 29 Pressure Peak Inspiratory Airway 29 Pressure Peak Inspiratory Airway 29 Pressure Peak Inspiratory Airway 29 Pressure Peak Inspiratory Airway 28 Pressure Peak Inspiratory Airway 28 Pressure Results - Laboratory Findings CBC and BMP: 11/08/16 00:09 11/08/16 00:09 ABG ABG pH 7.44 pH Units (7.32-7.45) 11/08/16 06:14 ABG pCO2 53 mmHg (35-45) H 11/08/16 06:14 ABG pO2 56 mmHg (85-104) L 11/08/16 06:14 ABG O2 Saturation 90 % (95-98) L 11/08/16 06:14 PT/INR, D-dimer PT 13.9 Seconds (9.4-12.1) H 11/06/16 17:19 D-Dimer 3921 ng/mLFEU (0-500) H 11/06/16 17:19 Abnormal lab findings: Abnormal lab results WBC 13.6 K/mcL (4.3-11.1) H 11/08/16 00:09 RBC 5.00 M/mcL (3.82-4.97) H 11/08/16 00:09 Hct 45.4 % (35.3-44.9) H 11/08/16 00:09 MCHC 31.5 g/dL (31.6-35.5) L 11/08/16 00:09 RDW 16.2 % (11.5-14.5) H 11/08/16 00:09 Neutrophils # 12.7 K/mcL (1.6-8.9) H 11/08/16 00:09 Lymphocytes # 0.2 K/mcL (0.6-4.6) L 11/08/16 00:09 Nucleated RBCs/100 WBC 0.3 /100 WBC (0) H 11/08/16 00:09 Immature Plt Fraction 6.9 % (1.1-6.1) H 11/06/16 17:19 PT 13.9 Seconds (9.4-12.1) H 11/06/16 17:19 APTT 77.8 Seconds (26.0-36.0) H 11/08/16 06:20 D-Dimer 3921 ng/mLFEU (0-500) H 11/06/16 17:19 ABG pCO2 53 mmHg (35-45) H 11/08/16 06:14 ABG pO2 56 mmHg (85-104) L 11/08/16 06:14 ABG HCO3 36.0 mEQ/L (21-27) H 11/08/16 06:14 ABG Total CO2 37.6 mEq/L (20-26) H 11/08/16 06:14 ABG O2 Saturation 90 % (95-98) L 11/08/16 06:14 ABG Base Excess 9.8 mEq/L (-2.0 to 3.0) H 11/08/16 06:14 Chloride 96 mEq/L (98-109) L 11/08/16 00:09 Carbon Dioxide 31 mEq/L (19-29) H 11/08/16 00:09 BUN 50 mg/dL (7-20) H 11/08/16 00:09 Creatinine 2.13 mg/dL (0.57-1.11) H 11/08/16 00:09 Est GFR ( Amer) 29 (> 60) L 11/08/16 00:09 Est GFR (Non-Af Amer) 24 (> 60) L 11/08/16 00:09 Glucose 202 mg/dL (70-99) H 11/08/16 00:09 POC Glucose 204 (58-89) H 11/08/16 00:27 Calculated Osmolality 305 (280-300) H 11/08/16 00:09 Ionized Calcium 1.05 mmol/L (1.15-1.35) L 11/08/16 00:09 Phosphorus 5.6 mg/dL (2.3-4.7) H 11/08/16 00:09 ALT 121 Units/L (0-55) H 11/08/16 07:38 Troponin I 0.50 ng/mL (0-0.03) H* 11/07/16 05:33 B-Natriuretic Peptide 2717 pg/mL (0-100) H 11/06/16 17:19 Serum Total Protein 5.9 g/dL (6.0-8.3) L 11/08/16 07:38 Albumin 2.7 g/dL (3.5-5.0) L 11/08/16 07:38 Albumin/Globulin Ratio 0.8 (1.1-2.2) L 11/08/16 07:38 - Clinical Findings Intake & Output: Intake & Output 11/07/16 11/08/16 11/08/16 23:59 07:59 15:59 Intake Total 548 / 548 1067 / 1067 100 / 100 Output Total 700 / 700 475 / 475 Balance -152 / -152 592 / 592 100 / 100 - Attending Attestation I examined this patient and my medical decision-making was reviewed with the BODY WELDER/PA/Advanced Practice Nurse/Resident Physician. I agree with the documented findings, disposition and treatment plan as described except to the extent set forth below. Patient seen and examined. Labs, radiology, chart personally reviewed. Agree with resident's history and physical, assessment, plan with following comments: COLD MEAT CHEF: Patient follows commands, Will need to increase sedation, hopefully that will help the oxygenation Pulmonary: Patient still have problem with oxygenation, which is multifactorial. Increased PEEP to 12 and increased FIO2 to 90%. I don't feel transporting her for CT will add anything at this time and it might not be safe. Cardiovascular: stable. Continue anticoagulation. GI: Nutrition per dietary and GI prophylaxis per routine Heme: DVT prophylaxis per routine ID: Continue antibiotics and plan to de-escalation Renal; urine out put and renal funtion reviewed Endorcine: blood glucose is monitored Lines: all lines checked and no evidence of infections Skin: skin care to prevent pressure ulcers per nursing routine care I spent 35 min of Critical Care time with this patient. It involved decision making of high complexity to assess, manipulate, and support vital organ system failure and/or to prevent further life threatening deterioration of the patient' s condition. The time involved in the performance of separately reportable procedures was not counted toward critical care time.
[2016-11-08] MEDS: Budesonide/Formoterol 160/4.5 MDI IH SCH ×2 (07:46→19:38)
[2016-11-08] MEDS: Tiotropium 18 MCG inhalation IH SCH (07:46)
[2016-11-08] MEDS: Pantoprazole 40 MG VIAL IVP SCH (08:17)
[2016-11-08] MEDS: MethylPREDNISolone 40 MG/ML VIAL IVP SCH ×2 (08:17→16:02)
[2016-11-08 08:30] LABS: Albumin 2.7 g/dL (3.5-5.0); Albumin/Globulin Ratio 0.8 (1.1-2.2); Bilirubin,Direct 0.3 mg/dL (0.0-0.5); Bilirubin,Indirect 0.1 mg/dL (0.0-1.2); Bilirubin,Total 0.4 mg/dL (0.2-1.2); Globulin 3.2 g/dL (2.4-3.5); Total Protein 5.9 g/dL (6.0-8.3)
[2016-11-08] MEDS: Aspirin 81 MG TAB.CHEW GTUBE SCH (08:52)
[2016-11-08] MEDS: FentaNYL (PF) 1,000 MCG in 0.9 % Sodium Chloride 80 ML IVC SCH ×3 (08:56→18:57)
--- NOTE | 2016-11-08 11:34 | Palliative Progress Note ---
Date of Encounter: 11/08/16 Time of Encounter: 07:15 - Assessment and plan (1) Pain Current Visit: Yes Status: Acute Assessment and plan: Well-controlled on fentanyl drip (2) Dyspnea Current Visit: Yes Status: Acute Assessment and plan: Blood gas has worsened, increase in CO2 noted as well as decrease in oxygenation. It is not responding well to increasing PEEP or increasing FiO2 in this regard. Juanita extended conversation with patient's regarding active this portends a much poor prognosis than yesterday. Continue to watch Qualifiers: Dyspnea type: shortness of breath Qualified Code(s): R06.02 - Shortness of breath (3) Acute exacerbation of chronic obstructive pulmonary disease (COPD) Current Visit: Yes Status: Acute Assessment and plan: Continue prior current plan per hospitalist team patient is doing more poorly than yesterday. Patient's medical power of attorney law clerk is aware. (4) Acute respiratory failure with hypercapnia Current Visit: Yes Status: Acute (5) Breast cancer Current Visit: No Status: Acute Assessment and plan: History turn to cancer Center for continued care of the patient if she is pulled through this. 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 However at this time she is failing to do so. Her labs are looking worse. I have held a conversation with her regarding the change in her prognosis. Time it is definitely worse than yesterday. Human aggressive care, however the patient's family does understand that she is not doing well with this. We will continue to keep him posted and continue to discuss options. - Time Spent With Patient Total time spent is greater than 50% in coordination of care (as documented) at patient's floor/unit and/or counseling patient: - Subjective Interval history: Intubated on ventilator blood gases are getting worse. He difficult time keeping oxygenation up on the vent. Despite increasing FiO2 and PEEP. Patient however seems comfortable. - Constitutional Vitals: Abnormal lab results WBC 13.6 K/mcL (4.3-11.1) H 11/08/16 00:09 RBC 5.00 M/mcL (3.82-4.97) H 11/08/16 00:09 Hct 45.4 % (35.3-44.9) H 11/08/16 00:09 MCHC 31.5 g/dL (31.6-35.5) L 11/08/16 00:09 RDW 16.2 % (11.5-14.5) H 11/08/16 00:09 Neutrophils # 12.7 K/mcL (1.6-8.9) H 11/08/16 00:09 Lymphocytes # 0.2 K/mcL (0.6-4.6) L 11/08/16 00:09 Nucleated RBCs/100 WBC 0.3 /100 WBC (0) H 11/08/16 00:09 Immature Plt Fraction 6.9 % (1.1-6.1) H 11/06/16 17:19 PT 13.9 Seconds (9.4-12.1) H 11/06/16 17:19 APTT 77.8 Seconds (26.0-36.0) H 11/08/16 06:20 D-Dimer 3921 ng/mLFEU (0-500) H 11/06/16 17:19 ABG pCO2 53 mmHg (35-45) H 11/08/16 06:14 ABG pO2 56 mmHg (85-104) L 11/08/16 06:14 ABG HCO3 36.0 mEQ/L (21-27) H 11/08/16 06:14 ABG Total CO2 37.6 mEq/L (20-26) H 11/08/16 06:14 ABG O2 Saturation 90 % (95-98) L 11/08/16 06:14 ABG Base Excess 9.8 mEq/L (-2.0 to 3.0) H 11/08/16 06:14 Chloride 96 mEq/L (98-109) L 11/08/16 00:09 Carbon Dioxide 31 mEq/L (19-29) H 11/08/16 00:09 BUN 50 mg/dL (7-20) H 11/08/16 00:09 Creatinine 2.13 mg/dL (0.57-1.11) H 11/08/16 00:09 Est GFR ( Amer) 29 (> 60) L 11/08/16 00:09 Est GFR (Non-Af Amer) 24 (> 60) L 11/08/16 00:09 Glucose 202 mg/dL (70-99) H 11/08/16 00:09 POC Glucose 204 (58-89) H 11/08/16 00:27 Calculated Osmolality 305 (280-300) H 11/08/16 00:09 Ionized Calcium 1.05 mmol/L (1.15-1.35) L 11/08/16 00:09 Phosphorus 5.6 mg/dL (2.3-4.7) H 11/08/16 00:09 ALT 121 Units/L (0-55) H 11/08/16 07:38 Troponin I 0.50 ng/mL (0-0.03) H* 11/07/16 05:33 B-Natriuretic Peptide 2717 pg/mL (0-100) H 11/06/16 17:19 Serum Total Protein 5.9 g/dL (6.0-8.3) L 11/08/16 07:38 Albumin 2.7 g/dL (3.5-5.0) L 11/08/16 07:38 Albumin/Globulin Ratio 0.8 (1.1-2.2) L 11/08/16 07:38 General appearance: Present: no acute distress - Head Head exam: Present: atraumatic, normal inspection - Eye Eye exam: Present: normal appearance - ENT ENT exam: Present: mucous membranes moist (Endotracheal tube in place. Notice any further blood in the OG tube.) - Neck Neck exam: Present: normal inspection - Respiratory Respiratory exam: Present: decreased breath sounds - Cardiovascular Cardiovascular exam: Present: irregular rhythm - GI/Abdominal GI/Abdominal exam: Present: normal bowel sounds, soft. Absent: tenderness - Extremities Exam Extremities exam: Present: normal inspection. Absent: pedal edema, tenderness - Neurological Exam Neurological exam: Present: altered (Sedated and on vent) - Psychiatric Psychiatric exam: Absent: agitated, anxious - Skin Skin exam: Present: dry, warm Palliative Quality Palliative Quality: Screen for Code Status: Yes (Further screening awaiting family.), Screen for Goals of Care: Yes (Further screening awaiting family.), Screen for Pain: Yes, If Pain Regimen Started, Initiate Bowel Regimen: NA, Screen for Nausea/Vomitting: Yes Code Status: 11/07/16 04:31 CODE [Resuscitation Status: Active] [RES] Routine Comment: Resuscitation Status: Full Code CODE [Resuscitation Status: Active] [RES] Routine Comment: Resuscitation Status: DNR-Comfort Care-Arrest - Labs CBC & Chem 7: 11/08/16 00:09 11/08/16 00:09 Labs: Laboratory Results - last 24 hr 11/06/16 11/07/16 11/07/16 21:25 09:08 13:00 WBC RBC Hgb Hct MCV MCH MCHC RDW Plt Count MPV Immature Gran % Seg Neutrophils % Lymphocytes % Monocytes % Eosinophils % Basophils % Neutrophils # Lymphocytes # Monocytes # Eosinophils # Basophils # Nucleated RBCs/100 WBC APTT ABG pH ABG pCO2 ABG pO2 ABG HCO3 ABG Total CO2 ABG O2 Saturation ABG Base Excess Blood Gas Modality Inspired O2 Sodium Potassium Chloride Carbon Dioxide BUN Creatinine Est GFR ( Amer) Est GFR (Non-Af Amer) BUN/Creatinine Ratio Glucose POC Glucose 118 H 135 H Calculated Osmolality Calcium Ionized Calcium Phosphorus Magnesium Total Bilirubin Direct Bilirubin Indirect Bilirubin AST ALT Alkaline Phosphatase Serum Total Protein Albumin Globulin Albumin/Globulin Ratio TSH 0.583 Free T4 1.00 Free T3 1.73 11/07/16 11/08/16 11/08/16 16:24 00:09 00:09 WBC 13.6 H RBC 5.00 H Hgb 14.3 Hct 45.4 H MCV 90.8 MCH 28.6 MCHC 31.5 L RDW 16.2 H Plt Count 198 MPV 11.1 Immature Gran % 0.6 Seg Neutrophils % 93.3 Lymphocytes % 1.6 Monocytes % 4.4 Eosinophils % 0.0 Basophils % 0.1 Neutrophils # 12.7 H Lymphocytes # 0.2 L Monocytes # 0.6 Eosinophils # 0.0 Basophils # 0.0 Nucleated RBCs/100 WBC 0.3 H APTT 82.8 H ABG pH ABG pCO2 ABG pO2 ABG HCO3 ABG Total CO2 ABG O2 Saturation ABG Base Excess Blood Gas Modality Inspired O2 Sodium 138 Potassium 4.2 D Chloride 96 L Carbon Dioxide 31 H BUN 50 H Creatinine 2.13 H Est GFR ( Amer) 29 L Est GFR (Non-Af Amer) 24 L BUN/Creatinine Ratio 23 Glucose 202 H POC Glucose Calculated Osmolality 305 H Calcium 8.6 Ionized Calcium 1.05 L Phosphorus 5.6 H Magnesium 2.0 Total Bilirubin 0.4 Direct Bilirubin Indirect Bilirubin AST 42 H ALT 134 H Alkaline Phosphatase 85 Serum Total Protein 5.8 L Albumin 2.8 L Globulin 3.0 Albumin/Globulin Ratio 0.9 L TSH Free T4 Free T3 11/08/16 11/08/16 11/08/16 00:09 00:27 06:14 WBC RBC Hgb Hct MCV MCH MCHC RDW Plt Count MPV Immature Gran % Seg Neutrophils % Lymphocytes % Monocytes % Eosinophils % Basophils % Neutrophils # Lymphocytes # Monocytes # Eosinophils # Basophils # Nucleated RBCs/100 WBC APTT 105.5 H ABG pH 7.44 ABG pCO2 53 H ABG pO2 56 L ABG HCO3 36.0 H ABG Total CO2 37.6 H ABG O2 Saturation 90 L ABG Base Excess 9.8 H Blood Gas Modality VC+ Inspired O2 80 Sodium Potassium Chloride Carbon Dioxide BUN Creatinine Est GFR ( Amer) Est GFR (Non-Af Amer) BUN/Creatinine Ratio Glucose POC Glucose 204 H Calculated Osmolality Calcium Ionized Calcium Phosphorus Magnesium Total Bilirubin Direct Bilirubin Indirect Bilirubin AST ALT Alkaline Phosphatase Serum Total Protein Albumin Globulin Albumin/Globulin Ratio TSH Free T4 Free T3 11/08/16 11/08/16 06:20 07:38 WBC RBC Hgb Hct MCV MCH MCHC RDW Plt Count MPV Immature Gran % Seg Neutrophils % Lymphocytes % Monocytes % Eosinophils % Basophils % Neutrophils # Lymphocytes # Monocytes # Eosinophils # Basophils # Nucleated RBCs/100 WBC APTT 77.8 H ABG pH ABG pCO2 ABG pO2 ABG HCO3 ABG Total CO2 ABG O2 Saturation ABG Base Excess Blood Gas Modality Inspired O2 Sodium Potassium Chloride Carbon Dioxide BUN Creatinine Est GFR ( Amer) Est GFR (Non-Af Amer) BUN/Creatinine Ratio Glucose POC Glucose Calculated Osmolality Calcium Ionized Calcium Phosphorus Magnesium Total Bilirubin 0.4 Direct Bilirubin 0.3 Indirect Bilirubin 0.1 AST 31 ALT 121 H Alkaline Phosphatase 83 Serum Total Protein 5.9 L Albumin 2.7 L Globulin 3.2 Albumin/Globulin Ratio 0.8 L TSH Free T4 Free T3 - Impressions Impressions Chest X-Ray 11/08/16 06:00 IMPRESSION: Stable chest. Dense left lower lobe opacification and bilateral perihilar infiltrates. D/ / Sebastien Reagan MD / Sebastien Reagan MD Interpreting Provider: Sebastien Reagan MD - ABG Interpretation ABG results: ABG ABG pH 7.44 pH Units (7.32-7.45) 11/08/16 06:14 ABG pCO2 53 mmHg (35-45) H 11/08/16 06:14 ABG pO2 56 mmHg (85-104) L 11/08/16 06:14 ABG O2 Saturation 90 % (95-98) L 11/08/16 06:14 PT/INR, D-dimer PT 13.9 Seconds (9.4-12.1) H 11/06/16 17:19 D-Dimer 3921 ng/mLFEU (0-500) H 11/06/16 17:19 Consult Discharge Plan - Plan Referrals: Kay Palmer [Primary Care Provider] -
[2016-11-08] MEDS: Nicotine 21 MG PATCH.TD24 TD SCH (12:03)
[2016-11-08] MEDS: Insulin LISPRO 300 UNITS/3 ML VIAL SQ SCH ×2 (12:03→17:10)
[2016-11-08] MEDS ORDERED: Azithromycin 250 MG in D5% in Water 250 ML IVPB SCH (16:00)
[2016-11-08] MEDS: Heparin 25,000 UNIT/500 ML D5W 25,000 UNIT/500 ML MLS IVC SCH (22:09)
[2016-11-09] MEDS: FentaNYL (PF) 1,000 MCG in 0.9 % Sodium Chloride 80 ML IVC SCH ×4 (01:04→22:30)
[2016-11-09] MEDS: MethylPREDNISolone 40 MG/ML VIAL IVP SCH ×2 (01:09→08:47)
[2016-11-09] MEDS: Insulin LISPRO 300 UNITS/3 ML VIAL SQ SCH ×5 (01:09→23:51)
[2016-11-09 03:21] LABS: Basophils % 0.1 %; Hematocrit 43.9 % (35.3-44.9); Hemoglobin 13.8 g/dL (11.5-15.4); Immature Granulocytes % 0.7 % (0-4); Lymphocytes # 0.3 K/mcL (0.6-4.6); Lymphocytes % 1.8 %; Mean Corpuscular HGB Conc 31.4 g/dL (31.6-35.5); Mean Corpuscular Hemoglobin 28.6 pg (28.0-33.3); Mean Corpuscular Volume 90.9 fL (83.0-100.0); Monocytes # 0.8 K/mcL (0.0-1.3); Monocytes % 6.2 %; Neutrophils # 12.3 K/mcL (1.6-8.9); Nucleated Red Blood Cells 0.2 /100 WBC (0); Platelet Count 197 K/mcL (140-400); Red Blood Count 4.83 M/mcL (3.82-4.97); Red Cell Distribution Width 16.4 % (11.5-14.5); Segmented Neutrophils % 91.2 %
[2016-11-09 03:36] LABS: Albumin 2.6 g/dL (3.5-5.0); Albumin/Globulin Ratio 0.9 (1.1-2.2); Bilirubin,Total 0.4 mg/dL (0.2-1.2); Calcium 8.3 mg/dL (8.6-10.8); Potassium 4.6 mEq/L (3.5-4.5); Total Protein 5.6 g/dL (6.0-8.3)
[2016-11-09] MEDS: Ipratropium/Albuterol Neb 3 ML IH SCH ×6 (03:44→23:46)
[2016-11-09 05:37] LABS: Ionized Calcium 1.04 mmol/L (1.15-1.35)
[2016-11-09 05:53] LABS: Magnesium 2.1 mg/dL (1.6-2.6); Phosphorous 5.7 mg/dL (2.3-4.7)
[2016-11-09 06:45] LABS: ABG Base Excess 9.8 mEq/L (-2.0 to 3.0); ABG HCO3 38.6 mEQ/L (21-27); ABG Oxygen Saturation 88 % (95-98); ABG PH 7.35 pH Units (7.32-7.45); ABG PO2 58 mmHg (85-104); ABG TCO2 40.7 mEq/L (20-26); Blood Gas FiO2 100 %
[2016-11-09 06:46] LABS: ABG PCO2 70 mmHg (35-45)
--- NOTE | 2016-11-09 06:55 | Pulmonology Progress Note ---
<Guero Blackwell - Last Filed: 11/09/16 09:33> Date of Encounter: 11/09/16 Time of Encounter: 06:55 Assessment and Plan (1) Acute respiratory failure with hypercapnia Current Visit: Yes Status: Acute Stable but critical. Patient still requiring large amounts of FiO2 and PEEP. At this point the etiology remains elusive. PE, COPD exacerbation, pneumonia, pulmonary edema are also considerations. Treating with heparin drip, antibiotics, steroids. We give continue lasix for diuresis. (2) COPD (chronic obstructive pulmonary disease) Current Visit: Yes Status: Acute With possible exacerbation. We will treat with bronchodilators, steroids, antibiotics day 3. We will continue to monitor. Qualifiers: COPD type: unspecified COPD Qualified Code(s): J44.9 - Chronic obstructive pulmonary disease, unspecified (3) Breast cancer Current Visit: No Status: Acute Stage I. Currently receiving radiation therapy. Could possibly be a contributing factor to the development of venous thromboembolism. Qualifiers: Breast location: upper outer quadrant of breast Patient gender: female Laterality: right Qualified Code(s): C50.411 - Malignant neoplasm of upper- outer quadrant of right female breast (4) Hypertension Current Visit: Yes Status: Acute Patient was hypertensive on presentation however blood pressure has normalized and is running low. This morning she is 100/70. Will hold home blood pressure medications. Qualifiers: Hypertension type: essential hypertension Qualified Code(s): I10 - Essential (primary) hypertension (5) DVT prophylaxis Current Visit: Yes Status: Acute Patient is on therapeutic heparin drip. (6) Goals of care, counseling/discussion Current Visit: Yes Status: Acute Patient is DNR CCA. Palliative is following and we appreciate their assistance. The brought paperwork that designated him medical power of business affairs manager. We will continue with aggressive measures at this time however the states that the patient would not wish long-term life-sustaining measures including tracheostomy and PEG tube placement. Family may be reassessing goals of care today Subjective Principal diagnosis: Respiratory failure Interval history: Patient seen and examined at bedside. Patient remains intubated and sedated. She will respond to loud verbal stimuli. She appears to be resting comfortably and is in no acute distress. Objective PUL Vital signs: Last Vital Signs Temp 97.8 F 11/09/16 04:13 Pulse 74 11/09/16 06:00 Resp 12 11/09/16 06:00 BP 109/63 11/09/16 06:00 Pulse Ox 86 L 11/09/16 06:00 General appearance: no acute distress ENT: oropharynx moist Effort: normal Auscultation: bilateral: diminished breath sounds Cardiovascular: regular rate and rhythm Gastrointestinal: normoactive bowel sounds, soft, non-tender, non-distended Extremities: no cyanosis, no clubbing, edema (Trace) normal mental status, non-focal exam Ventilator Settings Ventilator Settings: Ventilator Settings, Last 8 Hours Ventilator Mode VC+ Ventilator Mode VC+ Ventilator Mode VC+ Ventilator Mode VC+ Ventilator Mode VC+ Ventilator Mode VC+ Ventilator Mode VC+ Ventilator Mode VC+ Ventilator Mode VC+ Ventilator Mode VC+ Ventilator Mode VC+ Ventilator Tidal Volume 450 Setting Ventilator Tidal Volume 450 Setting Ventilator Tidal Volume 450 Setting Ventilator Tidal Volume 450 Setting Ventilator Tidal Volume 450 Setting Ventilator Tidal Volume 450 Setting Ventilator Tidal Volume 450 Setting Ventilator Tidal Volume 450 Setting Ventilator Tidal Volume 450 Setting Ventilator Tidal Volume 450 Setting Ventilator Tidal Volume 450 Setting Ventilator Respiratory Rate 12 Setting Ventilator Respiratory Rate 12 Setting Ventilator Respiratory Rate 12 Setting Ventilator Respiratory Rate 12 Setting Ventilator Respiratory Rate 12 Setting Ventilator Respiratory Rate 12 Setting Ventilator Respiratory Rate 12 Setting Ventilator Respiratory Rate 12 Setting Ventilator Respiratory Rate 12 Setting Ventilator Respiratory Rate 12 Setting Ventilator Respiratory Rate 12 Setting Actual Respiratory Rate 12 Actual Respiratory Rate 12 Actual Respiratory Rate 15 Actual Respiratory Rate 15 Actual Respiratory Rate 15 Actual Respiratory Rate 15 Actual Respiratory Rate 15 Actual Respiratory Rate 12 Actual Respiratory Rate 12 Actual Respiratory Rate 12 Positive End Expiratory 12 Pressure Positive End Expiratory 12 Pressure Positive End Expiratory 12 Pressure Positive End Expiratory 12 Pressure Positive End Expiratory 12 Pressure Positive End Expiratory 12 Pressure Positive End Expiratory 12 Pressure Positive End Expiratory 12 Pressure Positive End Expiratory 12 Pressure Positive End Expiratory 12 Pressure Positive End Expiratory 12 Pressure Peak Inspiratory Airway 37 Pressure Peak Inspiratory Airway 37 Pressure Peak Inspiratory Airway 31 Pressure Peak Inspiratory Airway 31 Pressure Peak Inspiratory Airway 32 Pressure Peak Inspiratory Airway 31 Pressure Peak Inspiratory Airway 31 Pressure Peak Inspiratory Airway 30 Pressure Peak Inspiratory Airway 29 Pressure Peak Inspiratory Airway 29 Pressure Results - Laboratory Findings CBC and BMP: 11/09/16 03:03 11/09/16 03:03 ABG ABG pH 7.35 pH Units (7.32-7.45) 11/09/16 06:37 ABG pCO2 70 mmHg (35-45) H* 11/09/16 06:37 ABG pO2 58 mmHg (85-104) L 11/09/16 06:37 ABG O2 Saturation 88 % (95-98) L 11/09/16 06:37 PT/INR, D-dimer PT 13.9 Seconds (9.4-12.1) H 11/06/16 17:19 D-Dimer 3921 ng/mLFEU (0-500) H 11/06/16 17:19 Abnormal lab findings: Abnormal lab results WBC 13.5 K/mcL (4.3-11.1) H 11/09/16 03:03 MCHC 31.4 g/dL (31.6-35.5) L 11/09/16 03:03 RDW 16.4 % (11.5-14.5) H 11/09/16 03:03 Neutrophils # 12.3 K/mcL (1.6-8.9) H 11/09/16 03:03 Lymphocytes # 0.3 K/mcL (0.6-4.6) L 11/09/16 03:03 Nucleated RBCs/100 WBC 0.2 /100 WBC (0) H 11/09/16 03:03 Immature Plt Fraction 6.9 % (1.1-6.1) H 11/06/16 17:19 PT 13.9 Seconds (9.4-12.1) H 11/06/16 17:19 APTT 60.3 Seconds (26.0-36.0) H 11/08/16 13:25 D-Dimer 3921 ng/mLFEU (0-500) H 11/06/16 17:19 ABG pCO2 70 mmHg (35-45) H* 11/09/16 06:37 ABG pO2 58 mmHg (85-104) L 11/09/16 06:37 ABG HCO3 38.6 mEQ/L (21-27) H 11/09/16 06:37 ABG Total CO2 40.7 mEq/L (20-26) H 11/09/16 06:37 ABG O2 Saturation 88 % (95-98) L 11/09/16 06:37 ABG Base Excess 9.8 mEq/L (-2.0 to 3.0) H 11/09/16 06:37 Sodium 135 mEq/L (136-145) L 11/09/16 03:03 Potassium 4.6 mEq/L (3.5-4.5) H 11/09/16 03:03 Chloride 94 mEq/L (98-109) L 11/09/16 03:03 BUN 52 mg/dL (7-20) H 11/09/16 03:03 Creatinine 2.07 mg/dL (0.57-1.11) H 11/09/16 03:03 Est GFR ( Amer) 30 (> 60) L 11/09/16 03:03 Est GFR (Non-Af Amer) 24 (> 60) L 11/09/16 03:03 Glucose 150 mg/dL (70-99) H 11/09/16 03:03 POC Glucose 140 (58-89) H 11/08/16 15:57 Calcium 8.3 mg/dL (8.6-10.8) L 11/09/16 03:03 Ionized Calcium 1.04 mmol/L (1.15-1.35) L 11/09/16 05:24 Phosphorus 5.7 mg/dL (2.3-4.7) H 11/09/16 05:24 ALT 91 Units/L (0-55) H 11/09/16 03:03 Troponin I 0.50 ng/mL (0-0.03) H* 11/07/16 05:33 B-Natriuretic Peptide 2717 pg/mL (0-100) H 11/06/16 17:19 Serum Total Protein 5.6 g/dL (6.0-8.3) L 11/09/16 03:03 Albumin 2.6 g/dL (3.5-5.0) L 11/09/16 03:03 Albumin/Globulin Ratio 0.9 (1.1-2.2) L 11/09/16 03:03 - Clinical Findings Intake & Output: Intake & Output 11/08/16 11/08/16 11/09/16 15:59 23:59 07:59 Intake Total 600 / 600 1241 / 1241 400 / 400 Output Total 450 / 450 775 / 775 400 / 400 Balance 150 / 150 466 / 466 0 / 0 Weight 133.628 kg Consult Discharge Plan - Plan Referrals: Kay Palmer [Primary Care Provider] - <Sai Mcconnell - Last Filed: 11/09/16 10:12> Date of Encounter: 11/09/16 Objective PUL Vital signs: Last Vital Signs Temp 97.8 F 11/09/16 04:13 Pulse 74 11/09/16 06:00 Resp 12 11/09/16 06:00 BP 109/63 11/09/16 06:00 Pulse Ox 86 L 11/09/16 06:00 Ventilator Settings Ventilator Settings: Ventilator Settings, Last 8 Hours Ventilator Mode VC+ Ventilator Mode VC+ Ventilator Mode VC+ Ventilator Mode VC+ Ventilator Mode VC+ Ventilator Mode VC+ Ventilator Mode VC+ Ventilator Mode VC+ Ventilator Mode VC+ Ventilator Mode VC+ Ventilator Tidal Volume 450 Setting Ventilator Tidal Volume 450 Setting Ventilator Tidal Volume 450 Setting Ventilator Tidal Volume 450 Setting Ventilator Tidal Volume 450 Setting Ventilator Tidal Volume 450 Setting Ventilator Tidal Volume 450 Setting Ventilator Tidal Volume 450 Setting Ventilator Tidal Volume 450 Setting Ventilator Tidal Volume 450 Setting Ventilator Respiratory Rate 12 Setting Ventilator Respiratory Rate 12 Setting Ventilator Respiratory Rate 12 Setting Ventilator Respiratory Rate 12 Setting Ventilator Respiratory Rate 12 Setting Ventilator Respiratory Rate 12 Setting Ventilator Respiratory Rate 12 Setting Ventilator Respiratory Rate 12 Setting Ventilator Respiratory Rate 12 Setting Ventilator Respiratory Rate 12 Setting Actual Respiratory Rate 12 Actual Respiratory Rate 12 Actual Respiratory Rate 15 Actual Respiratory Rate 15 Actual Respiratory Rate 15 Actual Respiratory Rate 15 Actual Respiratory Rate 15 Actual Respiratory Rate 12 Actual Respiratory Rate 12 Positive End Expiratory 12 Pressure Positive End Expiratory 12 Pressure Positive End Expiratory 12 Pressure Positive End Expiratory 12 Pressure Positive End Expiratory 12 Pressure Positive End Expiratory 12 Pressure Positive End Expiratory 12 Pressure Positive End Expiratory 12 Pressure Positive End Expiratory 12 Pressure Positive End Expiratory 12 Pressure Peak Inspiratory Airway 37 Pressure Peak Inspiratory Airway 37 Pressure Peak Inspiratory Airway 31 Pressure Peak Inspiratory Airway 31 Pressure Peak Inspiratory Airway 32 Pressure Peak Inspiratory Airway 31 Pressure Peak Inspiratory Airway 31 Pressure Peak Inspiratory Airway 30 Pressure Peak Inspiratory Airway 29 Pressure Results - Laboratory Findings CBC and BMP: 11/09/16 03:03 11/09/16 03:03 ABG ABG pH 7.35 pH Units (7.32-7.45) 11/09/16 06:37 ABG pCO2 70 mmHg (35-45) H* 11/09/16 06:37 ABG pO2 58 mmHg (85-104) L 11/09/16 06:37 ABG O2 Saturation 88 % (95-98) L 11/09/16 06:37 PT/INR, D-dimer PT 13.9 Seconds (9.4-12.1) H 11/06/16 17:19 D-Dimer 3921 ng/mLFEU (0-500) H 11/06/16 17:19 Abnormal lab findings: Abnormal lab results WBC 13.5 K/mcL (4.3-11.1) H 11/09/16 03:03 MCHC 31.4 g/dL (31.6-35.5) L 11/09/16 03:03 RDW 16.4 % (11.5-14.5) H 11/09/16 03:03 Neutrophils # 12.3 K/mcL (1.6-8.9) H 11/09/16 03:03 Lymphocytes # 0.3 K/mcL (0.6-4.6) L 11/09/16 03:03 Nucleated RBCs/100 WBC 0.2 /100 WBC (0) H 11/09/16 03:03 Immature Plt Fraction 6.9 % (1.1-6.1) H 11/06/16 17:19 PT 13.9 Seconds (9.4-12.1) H 11/06/16 17:19 APTT 60.3 Seconds (26.0-36.0) H 11/08/16 13:25 D-Dimer 3921 ng/mLFEU (0-500) H 11/06/16 17:19 ABG pCO2 70 mmHg (35-45) H* 11/09/16 06:37 ABG pO2 58 mmHg (85-104) L 11/09/16 06:37 ABG HCO3 38.6 mEQ/L (21-27) H 11/09/16 06:37 ABG Total CO2 40.7 mEq/L (20-26) H 11/09/16 06:37 ABG O2 Saturation 88 % (95-98) L 11/09/16 06:37 ABG Base Excess 9.8 mEq/L (-2.0 to 3.0) H 11/09/16 06:37 Sodium 135 mEq/L (136-145) L 11/09/16 03:03 Potassium 4.6 mEq/L (3.5-4.5) H 11/09/16 03:03 Chloride 94 mEq/L (98-109) L 11/09/16 03:03 BUN 52 mg/dL (7-20) H 11/09/16 03:03 Creatinine 2.07 mg/dL (0.57-1.11) H 11/09/16 03:03 Est GFR ( Amer) 30 (> 60) L 11/09/16 03:03 Est GFR (Non-Af Amer) 24 (> 60) L 11/09/16 03:03 Glucose 150 mg/dL (70-99) H 11/09/16 03:03 POC Glucose 140 (58-89) H 11/08/16 15:57 Calcium 8.3 mg/dL (8.6-10.8) L 11/09/16 03:03 Ionized Calcium 1.04 mmol/L (1.15-1.35) L 11/09/16 05:24 Phosphorus 5.7 mg/dL (2.3-4.7) H 11/09/16 05:24 ALT 91 Units/L (0-55) H 11/09/16 03:03 Troponin I 0.50 ng/mL (0-0.03) H* 11/07/16 05:33 B-Natriuretic Peptide 2717 pg/mL (0-100) H 11/06/16 17:19 Serum Total Protein 5.6 g/dL (6.0-8.3) L 11/09/16 03:03 Albumin 2.6 g/dL (3.5-5.0) L 11/09/16 03:03 Albumin/Globulin Ratio 0.9 (1.1-2.2) L 11/09/16 03:03 - Clinical Findings Intake & Output: Intake & Output 11/08/16 11/08/16 11/09/16 15:59 23:59 07:59 Intake Total 600 / 600 1241 / 1241 400 / 400 Output Total 450 / 450 775 / 775 400 / 400 Balance 150 / 150 466 / 466 0 / 0 Weight 133.628 kg - Attending Attestation I examined this patient and my medical decision-making was reviewed with the ACCOUNTING ANALYST/PA/Advanced Practice Nurse/Resident Physician. I agree with the documented findings, disposition and treatment plan as described except to the extent set forth below. I spent 35min of Critical Care time with this patient. It involved decision making of high complexity to assess, manipulate, and support vital organ system failure and/or to prevent further life threatening deterioration of the patient' s condition. The time involved in the performance of separately reportable procedures was not counted toward critical care time. Patient seen and examined at bedside Labs, radiology, chart personally reviewed. All lines examined without evidence of infection. Neuro: Intubated and deeply sedated for vent. does open eyes to deep stimulation. PEERL Pulm: Severe Hypoxic respiratory failure ?PNA ?PE +/- cardiogenic vs non cardiogenic edema in the setting of advanced COPD. Vent adjusted decrease PEEP for GOAl PaO2 >55. Cont steroids BDs and ABx. Acceptable oxygenation/ ventilation on ABG today. Cards: HFpEF diuresis. goal 1L today as tolerated. 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 Strict I/Os renal dose meds. Trial diuretic with BID RFPs ID: CAP cont ABx cultures negative Heme/Onc: H/H stable. possible PE on empiric heparin gtt kidney dysfunction precludes CTA. LE duplex (-) Endo: SSi and monitor glucose Integ: skin care per ICU protocol CODE: DNRCCA - Palliative Care on board. Family meeting today.
[2016-11-09] MEDS ORDERED: Furosemide 40 MG/4 ML VIAL IVP ONE ×2 (07:11→16:58)
[2016-11-09] MEDS: Tiotropium 18 MCG inhalation IH SCH (07:37)
[2016-11-09] MEDS: Budesonide/Formoterol 160/4.5 MDI IH SCH ×2 (07:37→19:42)
[2016-11-09] MEDS: Pantoprazole 40 MG VIAL IVP SCH (08:47)
[2016-11-09] MEDS: Nicotine 21 MG PATCH.TD24 TD SCH (08:48)
[2016-11-09] MEDS: Aspirin 81 MG TAB.CHEW GTUBE SCH (08:48)
--- NOTE | 2016-11-09 09:17 | Palliative Progress Note ---
Date of Encounter: 11/09/16 Time of Encounter: 08:50 - Assessment and plan (1) Pain Current Visit: Yes Status: Acute Assessment and plan: Well-controlled on fentanyl drip No changes today. (2) Dyspnea Current Visit: Yes Status: Acute Assessment and plan: Blood gas has worsened, increase in CO2 noted as well as decrease in oxygenation. It is not responding well to increasing PEEP or increasing FiO2 in this regard. Juanita extended conversation with patient's regarding active this portends a much poor prognosis than yesterday. Continue to watch FiO2 is been turned up to 100% and the patient still only satting in the high 80s. Asses actually looking worse. He is considering compassionate withdrawal of end ventilator. Qualifiers: Dyspnea type: shortness of breath Qualified Code(s): R06.02 - Shortness of breath (3) Acute exacerbation of chronic obstructive pulmonary disease (COPD) Current Visit: Yes Status: Acute Assessment and plan: Continue prior current plan per hospitalist team patient is doing more poorly than yesterday. Patient's medical power of senior attorney is aware. Discussion yesterday with patient's , patient's respiratory status is worsening and today it is even worse waiting for family to come in and discuss further treatment and possible compassionate extubation. (4) Acute respiratory failure with hypercapnia Current Visit: Yes Status: Acute Assessment and plan: Agents overall status is worsening. Continue current plan patient's later settings are nearly maxed out. (5) Breast cancer Current Visit: No Status: Acute Assessment and plan: History turn to cancer Center for continued care of the patient if she is pulled through this. 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 However at this time she is failing to do so. Her labs are looking worse. I have held a conversation with her regarding the change in her prognosis. Time it is definitely worse than yesterday. And for family meeting later today to discuss the fact that her condition is actually getting worse not better. - Time Spent With Patient Total time spent is greater than 50% in coordination of care (as documented) at patient's floor/unit and/or counseling patient: - Subjective Interval history: Intubated on ventilator blood gases are getting worse. He difficult time keeping oxygenation up on the vent. Despite increasing FiO2 and PEEP. Patient however seems comfortable. No changes today in fact is doing worse. - Constitutional Vitals: Abnormal lab results WBC 13.5 K/mcL (4.3-11.1) H 11/09/16 03:03 MCHC 31.4 g/dL (31.6-35.5) L 11/09/16 03:03 RDW 16.4 % (11.5-14.5) H 11/09/16 03:03 Neutrophils # 12.3 K/mcL (1.6-8.9) H 11/09/16 03:03 Lymphocytes # 0.3 K/mcL (0.6-4.6) L 11/09/16 03:03 Nucleated RBCs/100 WBC 0.2 /100 WBC (0) H 11/09/16 03:03 Immature Plt Fraction 6.9 % (1.1-6.1) H 11/06/16 17:19 PT 13.9 Seconds (9.4-12.1) H 11/06/16 17:19 APTT 60.3 Seconds (26.0-36.0) H 11/08/16 13:25 D-Dimer 3921 ng/mLFEU (0-500) H 11/06/16 17:19 ABG pCO2 70 mmHg (35-45) H* 11/09/16 06:37 ABG pO2 58 mmHg (85-104) L 11/09/16 06:37 ABG HCO3 38.6 mEQ/L (21-27) H 11/09/16 06:37 ABG Total CO2 40.7 mEq/L (20-26) H 11/09/16 06:37 ABG O2 Saturation 88 % (95-98) L 11/09/16 06:37 ABG Base Excess 9.8 mEq/L (-2.0 to 3.0) H 11/09/16 06:37 Sodium 135 mEq/L (136-145) L 11/09/16 03:03 Potassium 4.6 mEq/L (3.5-4.5) H 11/09/16 03:03 Chloride 94 mEq/L (98-109) L 11/09/16 03:03 BUN 52 mg/dL (7-20) H 11/09/16 03:03 Creatinine 2.07 mg/dL (0.57-1.11) H 11/09/16 03:03 Est GFR ( Amer) 30 (> 60) L 11/09/16 03:03 Est GFR (Non-Af Amer) 24 (> 60) L 11/09/16 03:03 Glucose 150 mg/dL (70-99) H 11/09/16 03:03 POC Glucose 140 (58-89) H 11/08/16 15:57 Calcium 8.3 mg/dL (8.6-10.8) L 11/09/16 03:03 Ionized Calcium 1.04 mmol/L (1.15-1.35) L 11/09/16 05:24 Phosphorus 5.7 mg/dL (2.3-4.7) H 11/09/16 05:24 ALT 91 Units/L (0-55) H 11/09/16 03:03 Troponin I 0.50 ng/mL (0-0.03) H* 11/07/16 05:33 B-Natriuretic Peptide 2717 pg/mL (0-100) H 11/06/16 17:19 Serum Total Protein 5.6 g/dL (6.0-8.3) L 11/09/16 03:03 Albumin 2.6 g/dL (3.5-5.0) L 11/09/16 03:03 Albumin/Globulin Ratio 0.9 (1.1-2.2) L 11/09/16 03:03 General appearance: Present: no acute distress (sedated on vent) - Head Head exam: Present: atraumatic, normal inspection - Eye Eye exam: Present: normal appearance - ENT ENT exam: Present: mucous membranes moist (sedated on vent) - Respiratory Respiratory exam: Present: decreased breath sounds - Cardiovascular Cardiovascular exam: Present: irregular rhythm - GI/Abdominal GI/Abdominal exam: Present: normal bowel sounds, soft. Absent: tenderness - Extremities Exam Extremities exam: Present: normal inspection. Absent: pedal edema, tenderness - Neurological Exam Neurological exam: Present: altered (sedated on vent) - Psychiatric Psychiatric exam: Absent: agitated, anxious - Skin Skin exam: Present: dry, warm Palliative Quality Palliative Quality: Screen for Code Status: Yes (Further screening awaiting family.), Screen for Goals of Care: Yes (Further screening awaiting family.), Screen for Pain: Yes, If Pain Regimen Started, Initiate Bowel Regimen: NA, Screen for Nausea/Vomitting: Yes Code Status: 11/07/16 04:31 CODE [Resuscitation Status: Active] [RES] Routine Comment: Resuscitation Status: Full Code CODE [Resuscitation Status: Active] [RES] Routine Comment: Resuscitation Status: DNR-Comfort Care-Arrest - Labs CBC & Chem 7: 11/09/16 03:03 11/09/16 03:03 Labs: Laboratory Results - last 24 hr 11/08/16 11/08/16 11/08/16 06:46 11:20 13:25 WBC RBC Hgb Hct MCV MCH MCHC RDW Plt Count MPV Immature Gran % Seg Neutrophils % Lymphocytes % Monocytes % Eosinophils % Basophils % Neutrophils # Lymphocytes # Monocytes # Eosinophils # Basophils # Nucleated RBCs/100 WBC APTT 60.3 H ABG pH ABG pCO2 ABG pO2 ABG HCO3 ABG Total CO2 ABG O2 Saturation ABG Base Excess Blood Gas Modality Inspired O2 Sodium Potassium Chloride Carbon Dioxide BUN Creatinine Est GFR ( Amer) Est GFR (Non-Af Amer) BUN/Creatinine Ratio Glucose POC Glucose 204 H 189 H Calculated Osmolality Calcium Ionized Calcium Phosphorus Magnesium Total Bilirubin AST ALT Alkaline Phosphatase Serum Total Protein Albumin Globulin Albumin/Globulin Ratio 11/08/16 11/09/16 11/09/16 15:57 03:03 03:03 WBC 13.5 H RBC 4.83 Hgb 13.8 Hct 43.9 MCV 90.9 MCH 28.6 MCHC 31.4 L RDW 16.4 H Plt Count 197 MPV 11.0 Immature Gran % 0.7 Seg Neutrophils % 91.2 Lymphocytes % 1.8 Monocytes % 6.2 Eosinophils % 0.0 Basophils % 0.1 Neutrophils # 12.3 H Lymphocytes # 0.3 L Monocytes # 0.8 Eosinophils # 0.0 Basophils # 0.0 Nucleated RBCs/100 WBC 0.2 H APTT ABG pH ABG pCO2 ABG pO2 ABG HCO3 ABG Total CO2 ABG O2 Saturation ABG Base Excess Blood Gas Modality Inspired O2 Sodium 135 L Potassium 4.6 H Chloride 94 L Carbon Dioxide 29 BUN 52 H Creatinine 2.07 H Est GFR ( Amer) 30 L Est GFR (Non-Af Amer) 24 L BUN/Creatinine Ratio 25 Glucose 150 H POC Glucose 140 H Calculated Osmolality 297 Calcium 8.3 L Ionized Calcium Phosphorus Magnesium Total Bilirubin 0.4 AST 22 ALT 91 H Alkaline Phosphatase 72 Serum Total Protein 5.6 L Albumin 2.6 L Globulin 3.0 Albumin/Globulin Ratio 0.9 L 11/09/16 11/09/16 05:24 06:37 WBC RBC Hgb Hct MCV MCH MCHC RDW Plt Count MPV Immature Gran % Seg Neutrophils % Lymphocytes % Monocytes % Eosinophils % Basophils % Neutrophils # Lymphocytes # Monocytes # Eosinophils # Basophils # Nucleated RBCs/100 WBC APTT ABG pH 7.35 ABG pCO2 70 H* ABG pO2 58 L ABG HCO3 38.6 H ABG Total CO2 40.7 H ABG O2 Saturation 88 L ABG Base Excess 9.8 H Blood Gas Modality VCT Inspired O2 100 Sodium Potassium Chloride Carbon Dioxide BUN Creatinine Est GFR ( Amer) Est GFR (Non-Af Amer) BUN/Creatinine Ratio Glucose POC Glucose Calculated Osmolality Calcium Ionized Calcium 1.04 L Phosphorus 5.7 H Magnesium 2.1 Total Bilirubin AST ALT Alkaline Phosphatase Serum Total Protein Albumin Globulin Albumin/Globulin Ratio - Impressions Impressions Chest X-Ray 11/09/16 07:04 IMPRESSION: Stable chest with bilateral pulmonary infiltrates. More focal consolidation or atelectasis in the left lung base with a left pleural effusion. Follow-up to resolution is suggested. D/ / 11/09/2016 07:42:24 Ela Aleman MD / estela Interpreting Provider: Ela Aleman MD - ABG Interpretation ABG results: ABG ABG pH 7.35 pH Units (7.32-7.45) 11/09/16 06:37 ABG pCO2 70 mmHg (35-45) H* 11/09/16 06:37 ABG pO2 58 mmHg (85-104) L 11/09/16 06:37 ABG O2 Saturation 88 % (95-98) L 11/09/16 06:37 PT/INR, D-dimer PT 13.9 Seconds (9.4-12.1) H 11/06/16 17:19 D-Dimer 3921 ng/mLFEU (0-500) H 11/06/16 17:19 Consult Discharge Plan - Plan Referrals: Kay Palmer [Primary Care Provider] -
[2016-11-09] MEDS ORDERED: *HR* Midazolam HCl 5 MG/5 ML VIAL IVP ONE (09:30)
[2016-11-09] MEDS ORDERED: *HR* Etomidate 20 MG/10 ML AMPUL IVP ONE (09:30)
[2016-11-09] MEDS ORDERED: *HR* Midazolam HCl 2 MG/2 ML VIAL IV ONE (09:30)
[2016-11-09] MEDS: Chlorhexidine Rinse 15 ML MOUTHWASH MM SCH ×2 (11:48→20:02)
[2016-11-09 11:50] LABS: ABG Base Excess 8.2 mEq/L (-2.0 to 3.0); ABG HCO3 36.1 mEQ/L (21-27); ABG Oxygen Saturation 86 % (95-98); ABG PCO2 61 mmHg (35-45); ABG PH 7.38 pH Units (7.32-7.45); ABG PO2 53 mmHg (85-104)
[2016-11-09 11:51] LABS: Blood Gas FiO2 100 %
--- NOTE | 2016-11-09 12:10 | Electrocardiograph Report ---
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
[2016-11-09] MEDS ORDERED: 0.9 % Sodium Chloride 500 ML ONE (13:04)
[2016-11-09 14:04] LABS: ABG Base Excess 7.8 mEq/L (-2.0 to 3.0); ABG HCO3 36.4 mEQ/L (21-27); ABG Oxygen Saturation 87 % (95-98); ABG PCO2 66 mmHg (35-45); ABG PH 7.35 pH Units (7.32-7.45); ABG PO2 56 mmHg (85-104); ABG TCO2 38.4 mEq/L (20-26); Blood Gas FiO2 100 %
[2016-11-09] MEDS: Vecuronium 50 MG in 0.9 % Sodium Chloride 150 ML IVC SCH ×2 (14:41→20:15)
[2016-11-09 16:21] LABS: ABG Base Excess 10.5 mEq/L (-2.0 to 3.0); ABG HCO3 37.2 mEQ/L (21-27); ABG Oxygen Saturation 89 % (95-98); ABG PCO2 56 mmHg (35-45); ABG PH 7.43 pH Units (7.32-7.45); ABG PO2 54 mmHg (85-104); ABG TCO2 38.9 mEq/L (20-26)
[2016-11-09 16:26] LABS: Blood Gas FiO2 100 %
[2016-11-09] MEDS: Heparin 25,000 UNIT/500 ML D5W 25,000 UNIT/500 ML MLS IVC SCH (16:35)
[2016-11-09 17:09] LABS: ABG Base Excess 10.3 mEq/L (-2.0 to 3.0); ABG HCO3 37.8 mEQ/L (21-27); ABG Oxygen Saturation 88 % (95-98); ABG PCO2 61 mmHg (35-45); ABG PO2 55 mmHg (85-104); ABG TCO2 39.7 mEq/L (20-26); Blood Gas FiO2 100 %
[2016-11-09 17:10] LABS: Blood Gas PEEP 16 cm H2O
[2016-11-09] MEDS: Azithromycin 500 MG in D5% in Water 250 ML IVPB SCH (18:21)
[2016-11-09] MEDS: Lacri-Lube 3.5 GM TUBE BOTH EYES SCH (20:02)
[2016-11-10] MEDS ORDERED: FENTANYL IVC SCH (02:15)
[2016-11-10] MEDS ORDERED: SODIUM CHLORIDE 0.9% IVC SCH (02:15)
[2016-11-10 02:39] LABS: Ionized Calcium 1.02 mmol/L (1.15-1.35)
[2016-11-10 02:42] LABS: Basophils % 0.1 %; Hematocrit 42.7 % (35.3-44.9); Hemoglobin 13.3 g/dL (11.5-15.4); Immature Granulocytes % 0.5 % (0-4); Lymphocytes # 0.2 K/mcL (0.6-4.6); Lymphocytes % 1.6 %; Mean Corpuscular HGB Conc 31.1 g/dL (31.6-35.5); Mean Corpuscular Hemoglobin 28.2 pg (28.0-33.3); Mean Corpuscular Volume 90.7 fL (83.0-100.0); Mean Platelet Volume 10.8 fL (9.4-12.4); Monocytes # 1.2 K/mcL (0.0-1.3); Monocytes % 8.7 %; Neutrophils # 12.3 K/mcL (1.6-8.9); Nucleated Red Blood Cells 0.3 /100 WBC (0); Platelet Count 183 K/mcL (140-400); Red Blood Count 4.71 M/mcL (3.82-4.97); Red Cell Distribution Width 16.3 % (11.5-14.5); Segmented Neutrophils % 89.1 %
[2016-11-10 02:43] LABS: Phosphorous 7.8 mg/dL (2.3-4.7)
[2016-11-10 02:44] LABS: Albumin 2.4 g/dL (3.5-5.0); Albumin/Globulin Ratio 0.8 (1.1-2.2); Bilirubin,Total 0.3 mg/dL (0.2-1.2); Calcium 8.1 mg/dL (8.6-10.8); Globulin 3.1 g/dL (2.4-3.5); Potassium 4.5 mEq/L (3.5-4.5); Total Protein 5.5 g/dL (6.0-8.3)
[2016-11-10] MEDS: Vecuronium 50 MG in 0.9 % Sodium Chloride 150 ML IVC SCH ×2 (03:01→09:49)
[2016-11-10] MEDS: FentaNYL (PF) 3,000 MCG in 0.9 % Sodium Chloride 240 ML IVC SCH ×2 (03:13→19:25)
[2016-11-10] MEDS: Heparin 25,000 UNIT/500 ML D5W 25,000 UNIT/500 ML MLS IVC SCH (03:58)
[2016-11-10] MEDS: Ipratropium/Albuterol Neb 3 ML IH SCH ×6 (04:53→23:33)
[2016-11-10] MEDS: Calcium Gluconate 1,000 MG in D5% in Water 100 ML IVPB PRN (05:08)
[2016-11-10] MEDS: Insulin LISPRO 300 UNITS/3 ML VIAL SQ SCH ×4 (05:15→23:04)
--- NOTE | 2016-11-10 06:57 | Pulmonology Progress Note ---
<Guero Blackwell - Last Filed: 11/10/16 11:27> Date of Encounter: 11/10/16 Time of Encounter: 06:55 Assessment and Plan (1) Acute respiratory failure with hypercapnia Current Visit: Yes Status: Acute And hypoxia. Stable but critical. Patient still requiring large amounts of FiO2 and PEEP but requirements are decreasing. At this point the etiology remains elusive. PE, COPD exacerbation, pneumonia, pulmonary edema are considerations PE appears listless most likely at this time, will stop heparin drip. Treating with antibiotics, steroids have stopped. We give continue lasix for diuresis as blood pressure allows. Have started paralytic for better vent synchrony (2) COPD (chronic obstructive pulmonary disease) Current Visit: Yes Status: Acute With possible exacerbation. We will treat with bronchodilators, antibiotics day 4, will treat for a total 5 days, steriods have been stopped while on paralytic. We will continue to monitor. Qualifiers: COPD type: unspecified COPD Qualified Code(s): J44.9 - Chronic obstructive pulmonary disease, unspecified (3) Breast cancer Current Visit: No Status: Acute Stage I. Currently receiving radiation therapy. Could possibly be a contributing factor to the development of venous thromboembolism. Qualifiers: Breast location: upper outer quadrant of breast Patient gender: female Laterality: right Qualified Code(s): C50.411 - Malignant neoplasm of upper- outer quadrant of right female breast (4) Hypertension Current Visit: Yes Status: Acute Patient was hypertensive on presentation however blood pressure has normalized and is running low. This morning MAPs are around 70. Will hold home blood pressure medications. Qualifiers: Hypertension type: essential hypertension Qualified Code(s): I10 - Essential (primary) hypertension (5) DVT prophylaxis Current Visit: Yes Status: Acute Patient is on therapeutic heparin drip. We will likely stop today. It. We will transition to subcutaneous heparin for DVT prophylaxis. (6) Goals of care, counseling/discussion Current Visit: Yes Status: Acute Patient is DNR CCA. Palliative is following and we appreciate their assistance. The brought paperwork that designated him medical power of collections attorney. We will continue with aggressive measures at this time however the states that the patient would not wish long-term life-sustaining measures including tracheostomy and PEG tube placement. Patient was able to wake up enough yesterday to respond to questions and she was able to indicate that she wanted to continue with aggressive treatment at this time. We will continually reassess goals of care. Subjective Principal diagnosis: Respiratory failure Interval history: Patient seen and examined at bedside. Patient remains intubated and sedated and paralyzed. Objective PUL Vital signs: Last Vital Signs Temp 98.1 F 11/10/16 04:00 Pulse 69 11/10/16 06:00 Resp 24 11/10/16 06:22 BP 98/52 11/10/16 06:22 Pulse Ox 90 L 11/10/16 06:22 General appearance: no acute distress, comatose Effort: normal Auscultation: bilateral: diminished breath sounds Cardiovascular: regular rate and rhythm Gastrointestinal: hypoactive bowel sounds, soft, non-tender, non-distended Extremities: no cyanosis, no clubbing, edema (Trace) normal mental status, non-focal exam Ventilator Settings Ventilator Settings: Ventilator Settings, Last 8 Hours Ventilator Mode VC+ Ventilator Mode VC+ Ventilator Mode VC+ Ventilator Mode VC+ Ventilator Mode VC+ Ventilator Mode VC+ Ventilator Mode VC+ Ventilator Mode VC+ Ventilator Mode VC+ Ventilator Mode VC+ Ventilator Mode VC+ Ventilator Tidal Volume 360 Setting Ventilator Tidal Volume 360 Setting Ventilator Tidal Volume 360 Setting Ventilator Tidal Volume 360 Setting Ventilator Tidal Volume 360 Setting Ventilator Tidal Volume 360 Setting Ventilator Tidal Volume 360 Setting Ventilator Tidal Volume 360 Setting Ventilator Tidal Volume 360 Setting Ventilator Tidal Volume 360 Setting Ventilator Tidal Volume 360 Setting Ventilator Respiratory Rate 24 Setting Ventilator Respiratory Rate 24 Setting Ventilator Respiratory Rate 24 Setting Ventilator Respiratory Rate 24 Setting Ventilator Respiratory Rate 24 Setting Ventilator Respiratory Rate 24 Setting Ventilator Respiratory Rate 24 Setting Ventilator Respiratory Rate 24 Setting Ventilator Respiratory Rate 24 Setting Ventilator Respiratory Rate 20 Setting Ventilator Respiratory Rate 20 Setting Actual Respiratory Rate 24 Actual Respiratory Rate 24 Actual Respiratory Rate 24 Actual Respiratory Rate 24 Actual Respiratory Rate 24 Actual Respiratory Rate 24 Actual Respiratory Rate 24 Actual Respiratory Rate 20 Positive End Expiratory 16 Pressure Positive End Expiratory 16 Pressure Positive End Expiratory 16 Pressure Positive End Expiratory 16 Pressure Positive End Expiratory 16 Pressure Positive End Expiratory 16 Pressure Positive End Expiratory 16 Pressure Positive End Expiratory 16 Pressure Positive End Expiratory 16 Pressure Positive End Expiratory 16 Pressure Positive End Expiratory 16 Pressure Peak Inspiratory Airway 30 Pressure Peak Inspiratory Airway 30 Pressure Peak Inspiratory Airway 29 Pressure Peak Inspiratory Airway 30 Pressure Peak Inspiratory Airway 28 Pressure Peak Inspiratory Airway 29 Pressure Peak Inspiratory Airway 29 Pressure Peak Inspiratory Airway 29 Pressure Peak Inspiratory Airway 31 Pressure Results - Laboratory Findings CBC and BMP: 11/10/16 02:00 11/10/16 02:00 ABG ABG pH 7.40 pH Units (7.32-7.45) 11/09/16 17:02 ABG pCO2 61 mmHg (35-45) H 11/09/16 17:02 ABG pO2 55 mmHg (85-104) L 11/09/16 17:02 ABG O2 Saturation 88 % (95-98) L 11/09/16 17:02 PT/INR, D-dimer PT 13.9 Seconds (9.4-12.1) H 11/06/16 17:19 D-Dimer 3921 ng/mLFEU (0-500) H 11/06/16 17:19 Abnormal lab findings: Abnormal lab results WBC 13.8 K/mcL (4.3-11.1) H 11/10/16 02:00 MCHC 31.1 g/dL (31.6-35.5) L 11/10/16 02:00 RDW 16.3 % (11.5-14.5) H 11/10/16 02:00 Neutrophils # 12.3 K/mcL (1.6-8.9) H 11/10/16 02:00 Lymphocytes # 0.2 K/mcL (0.6-4.6) L 11/10/16 02:00 Nucleated RBCs/100 WBC 0.3 /100 WBC (0) H 11/10/16 02:00 Immature Plt Fraction 6.9 % (1.1-6.1) H 11/06/16 17:19 PT 13.9 Seconds (9.4-12.1) H 11/06/16 17:19 APTT 72.0 Seconds (26.0-36.0) H 11/10/16 02:00 D-Dimer 3921 ng/mLFEU (0-500) H 11/06/16 17:19 ABG pCO2 61 mmHg (35-45) H 11/09/16 17:02 ABG pO2 55 mmHg (85-104) L 11/09/16 17:02 ABG HCO3 37.8 mEQ/L (21-27) H 11/09/16 17:02 ABG Total CO2 39.7 mEq/L (20-26) H 11/09/16 17:02 ABG O2 Saturation 88 % (95-98) L 11/09/16 17:02 ABG Base Excess 10.3 mEq/L (-2.0 to 3.0) H 11/09/16 17:02 Sodium 135 mEq/L (136-145) L 11/10/16 02:00 Chloride 94 mEq/L (98-109) L 11/10/16 02:00 BUN 65 mg/dL (7-20) H 11/10/16 02:00 Creatinine 2.31 mg/dL (0.57-1.11) H 11/10/16 02:00 Est GFR ( Amer) 26 (> 60) L 11/10/16 02:00 Est GFR (Non-Af Amer) 22 (> 60) L 11/10/16 02:00 BUN/Creatinine Ratio 28 (6-26) H 11/10/16 02:00 Glucose 174 mg/dL (70-99) H 11/10/16 02:00 POC Glucose 195 (58-89) H 11/09/16 23:50 Calculated Osmolality 303 (280-300) H 11/10/16 02:00 Calcium 8.1 mg/dL (8.6-10.8) L 11/10/16 02:00 Ionized Calcium 1.02 mmol/L (1.15-1.35) L 11/10/16 02:00 Phosphorus 7.8 mg/dL (2.3-4.7) H 11/10/16 02:00 ALT 67 Units/L (0-55) H 11/10/16 02:00 Troponin I 0.50 ng/mL (0-0.03) H* 11/07/16 05:33 B-Natriuretic Peptide 2717 pg/mL (0-100) H 11/06/16 17:19 Serum Total Protein 5.5 g/dL (6.0-8.3) L 11/10/16 02:00 Albumin 2.4 g/dL (3.5-5.0) L 11/10/16 02:00 Albumin/Globulin Ratio 0.8 (1.1-2.2) L 11/10/16 02:00 - Clinical Findings Intake & Output: Intake & Output 11/09/16 11/09/16 11/10/16 15:59 23:59 07:59 Intake Total 1206 / 1206 978 / 978 1220 / 1220 Output Total 1025 / 1025 650 / 650 200 / 200 Balance 181 / 181 328 / 328 1020 / 1020 Weight 134.717 kg Consult Discharge Plan - Plan Referrals: Kay Palmer [Primary Care Provider] - <Sai Mcconnell W - Last Filed: 11/10/16 13:02> Date of Encounter: 11/10/16 Objective PUL Vital signs: Last Vital Signs Temp 97.8 F 11/10/16 07:10 Pulse 67 11/10/16 09:00 Resp 24 11/10/16 09:00 BP 92/51 11/10/16 09:00 Pulse Ox 90 L 11/10/16 09:00 Ventilator Settings Ventilator Settings: Ventilator Settings, Last 8 Hours Ventilator Mode VC+ Ventilator Mode VC+ Ventilator Mode VC+ Ventilator Mode VC+ Ventilator Mode VC+ Ventilator Mode VC+ Ventilator Mode VC+ Ventilator Mode VC+ Ventilator Mode VC+ Ventilator Mode VC+ Ventilator Mode VC+ Ventilator Mode VC+ Ventilator Tidal Volume 360 Setting Ventilator Tidal Volume 360 Setting Ventilator Tidal Volume 360 Setting Ventilator Tidal Volume 360 Setting Ventilator Tidal Volume 360 Setting Ventilator Tidal Volume 360 Setting Ventilator Tidal Volume 360 Setting Ventilator Tidal Volume 360 Setting Ventilator Tidal Volume 360 Setting Ventilator Tidal Volume 360 Setting Ventilator Tidal Volume 360 Setting Ventilator Tidal Volume 360 Setting Ventilator Respiratory Rate 24 Setting Ventilator Respiratory Rate 24 Setting Ventilator Respiratory Rate 24 Setting Ventilator Respiratory Rate 24 Setting Ventilator Respiratory Rate 24 Setting Ventilator Respiratory Rate 24 Setting Ventilator Respiratory Rate 24 Setting Ventilator Respiratory Rate 24 Setting Ventilator Respiratory Rate 24 Setting Ventilator Respiratory Rate 24 Setting Ventilator Respiratory Rate 24 Setting Ventilator Respiratory Rate 24 Setting Actual Respiratory Rate 24 Actual Respiratory Rate 24 Actual Respiratory Rate 24 Actual Respiratory Rate 24 Actual Respiratory Rate 24 Actual Respiratory Rate 24 Actual Respiratory Rate 24 Actual Respiratory Rate 24 Actual Respiratory Rate 24 Positive End Expiratory 16 Pressure Positive End Expiratory 16 Pressure Positive End Expiratory 16 Pressure Positive End Expiratory 16 Pressure Positive End Expiratory 16 Pressure Positive End Expiratory 16 Pressure Positive End Expiratory 16 Pressure Positive End Expiratory 16 Pressure Positive End Expiratory 16 Pressure Positive End Expiratory 16 Pressure Positive End Expiratory 16 Pressure Positive End Expiratory 16 Pressure Peak Inspiratory Airway 30 Pressure Peak Inspiratory Airway 30 Pressure Peak Inspiratory Airway 28 Pressure Peak Inspiratory Airway 30 Pressure Peak Inspiratory Airway 30 Pressure Peak Inspiratory Airway 29 Pressure Peak Inspiratory Airway 30 Pressure Peak Inspiratory Airway 28 Pressure Peak Inspiratory Airway 29 Pressure Peak Inspiratory Airway 29 Pressure Results - Laboratory Findings CBC and BMP: 11/10/16 02:00 11/10/16 02:00 ABG ABG pH 7.31 pH Units (7.32-7.45) L 11/10/16 09:03 ABG pCO2 68 mmHg (35-45) H 11/10/16 09:03 ABG pO2 65 mmHg (85-104) L 11/10/16 09:03 ABG O2 Saturation 90 % (95-98) L 11/10/16 09:03 PT/INR, D-dimer PT 13.9 Seconds (9.4-12.1) H 11/06/16 17:19 D-Dimer 3921 ng/mLFEU (0-500) H 11/06/16 17:19 Abnormal lab findings: Abnormal lab results WBC 13.8 K/mcL (4.3-11.1) H 11/10/16 02:00 MCHC 31.1 g/dL (31.6-35.5) L 11/10/16 02:00 RDW 16.3 % (11.5-14.5) H 11/10/16 02:00 Neutrophils # 12.3 K/mcL (1.6-8.9) H 11/10/16 02:00 Lymphocytes # 0.2 K/mcL (0.6-4.6) L 11/10/16 02:00 Nucleated RBCs/100 WBC 0.3 /100 WBC (0) H 11/10/16 02:00 Immature Plt Fraction 6.9 % (1.1-6.1) H 11/06/16 17:19 PT 13.9 Seconds (9.4-12.1) H 11/06/16 17:19 APTT 72.0 Seconds (26.0-36.0) H 11/10/16 02:00 D-Dimer 3921 ng/mLFEU (0-500) H 11/06/16 17:19 ABG pH 7.31 pH Units (7.32-7.45) L 11/10/16 09:03 ABG pCO2 68 mmHg (35-45) H 11/10/16 09:03 ABG pO2 65 mmHg (85-104) L 11/10/16 09:03 ABG HCO3 28.8 mEQ/L (21-27) H 11/10/16 09:03 ABG Total CO2 36.3 mEq/L (20-26) H 11/10/16 09:03 ABG O2 Saturation 90 % (95-98) L 11/10/16 09:03 ABG Base Excess 5.2 mEq/L (-2.0 to 3.0) H 11/10/16 09:03 Sodium 135 mEq/L (136-145) L 11/10/16 02:00 Chloride 94 mEq/L (98-109) L 11/10/16 02:00 BUN 65 mg/dL (7-20) H 11/10/16 02:00 Creatinine 2.31 mg/dL (0.57-1.11) H 11/10/16 02:00 Est GFR ( Amer) 26 (> 60) L 11/10/16 02:00 Est GFR (Non-Af Amer) 22 (> 60) L 11/10/16 02:00 BUN/Creatinine Ratio 28 (6-26) H 11/10/16 02:00 Glucose 174 mg/dL (70-99) H 11/10/16 02:00 POC Glucose 195 (58-89) H 11/09/16 23:50 Calculated Osmolality 303 (280-300) H 11/10/16 02:00 Calcium 8.1 mg/dL (8.6-10.8) L 11/10/16 02:00 Ionized Calcium 1.02 mmol/L (1.15-1.35) L 11/10/16 02:00 Phosphorus 7.8 mg/dL (2.3-4.7) H 11/10/16 02:00 ALT 67 Units/L (0-55) H 11/10/16 02:00 Creatine Kinase 253 Units/L (29-168) H 11/10/16 07:25 Troponin I 0.50 ng/mL (0-0.03) H* 11/07/16 05:33 B-Natriuretic Peptide 2717 pg/mL (0-100) H 11/06/16 17:19 Serum Total Protein 5.5 g/dL (6.0-8.3) L 11/10/16 02:00 Albumin 2.4 g/dL (3.5-5.0) L 11/10/16 02:00 Albumin/Globulin Ratio 0.8 (1.1-2.2) L 11/10/16 02:00 Triglycerides 153 mg/dL (< 150) H 11/10/16 07:25 Lipase 132 Units/L (8-78) H 11/10/16 07:25 - Clinical Findings Intake & Output: Intake & Output 11/09/16 11/10/16 11/10/16 23:59 07:59 15:59 Intake Total 978 / 978 1530 / 1530 100 / 100 Output Total 650 / 650 400 / 400 Balance 328 / 328 1130 / 1130 100 / 100 Weight 134.717 kg - Attending Attestation I examined this patient and my medical decision-making was reviewed with the AUTOMOBILE MECHANIC APPRENTICE/PA/Advanced Practice Nurse/Resident Physician. I agree with the documented findings, disposition and treatment plan as described except to the extent set forth below. I spent 45min of Critical Care time with this patient. It involved decision making of high complexity to assess, manipulate, and support vital organ system failure and/or to prevent further life threatening deterioration of the patient' s condition. The time involved in the performance of separately reportable procedures was not counted toward critical care time. Patient seen and examined at bedside Labs, radiology, chart personally reviewed. All lines examined without evidence of infection. Neuro: Intubated and deeply sedated for paralysis. Monitor labs for RICA. Pulm: Severe Hypoxic respiratory failure ?PNA with ARDS setting of advanced COPD. Vent adjusted per ARDSnet protocol for GOAl PaO2 >55 and permissive hypercapnia. Hold steroids cont BDs and ABx. Acceptable oxygenation/ventilation on ABG. Attempt to stop paralysis later today based upon PaO2 Cards: HFpEF diuresis. goal 1L today as tolerated by BP FEN-GI: PPI prophylaxis cont Bowel regimen Enteral feedings as tolerated. Renal: PRICE multifactorial. slight bump in Creatinine overnight but good UOP. cont to Trial diuretic with BID RFPs ID: CAP cont ABx cultures negative thus far. Heme/Onc: H/H stable. possible PE on empiric heparin gtt but deemed much less likely so risk of heparin gtt outweighs clear benefit LE duplex (-) Endo: SSi and monitor glucose Integ: skin care per ICU protocol CODE: DNRCCA - long family meeting with daughter and HKPOA her . Patient awoke long enough yesterday to interact and wanted to cont more aggressive care up to trach/peg.
[2016-11-10] MEDS: Budesonide/Formoterol 160/4.5 MDI IH SCH ×2 (07:24→19:45)
[2016-11-10 07:54] LABS: Creatine Kinase 253 Units/L (29-168); Lipase 132 Units/L (8-78); Triglycerides 153 mg/dL (< 150)
[2016-11-10] MEDS: Aspirin 81 MG TAB.CHEW GTUBE SCH (08:58)
[2016-11-10] MEDS: Lacri-Lube 3.5 GM TUBE BOTH EYES SCH ×2 (08:58→20:08)
[2016-11-10] MEDS: Chlorhexidine Rinse 15 ML MOUTHWASH MM SCH ×2 (08:58→20:08)
[2016-11-10] MEDS: Pantoprazole 40 MG VIAL IVP SCH (08:58)
[2016-11-10] MEDS: Nicotine 21 MG PATCH.TD24 TD SCH (08:58)
[2016-11-10] MEDS ORDERED: *HR* Heparin 5,000 UNIT/ML VIAL SQ SCH (09:00)
[2016-11-10 09:17] LABS: ABG Base Excess 5.2 mEq/L (-2.0 to 3.0); ABG HCO3 28.8 mEQ/L (21-27); ABG Oxygen Saturation 90 % (95-98); ABG PCO2 68 mmHg (35-45); ABG PH 7.31 pH Units (7.32-7.45); ABG PO2 65 mmHg (85-104); ABG TCO2 36.3 mEq/L (20-26); Blood Gas FiO2 70 %
--- NOTE | 2016-11-10 09:52 | Palliative Progress Note ---
Date of Encounter: 11/10/16 Time of Encounter: 09:30 - Assessment and plan (1) Pain Current Visit: Yes Status: Acute Assessment and plan: Well-controlled on fentanyl drip No changes today. current medications today 11/10/2016 (2) Dyspnea Current Visit: Yes Status: Acute Assessment and plan: She is now paralyzed and sedated acquiring 100% FiO2 in 16 of PEEP during the night this has now been turned down to 60% FiO2 but still at 16 PEEP. Continue current plan per intensive care team. Qualifiers: Dyspnea type: shortness of breath Qualified Code(s): R06.02 - Shortness of breath (3) Acute exacerbation of chronic obstructive pulmonary disease (COPD) Current Visit: Yes Status: Acute Assessment and plan: still on vent but pulm is cautiously optomistic cont present meds (4) Acute respiratory failure with hypercapnia Current Visit: Yes Status: Acute Assessment and plan: cont current meds and treatment plan (5) Breast cancer Current Visit: No Status: Acute Assessment and plan: History turn to cancer Center for continued care of the patient if she is pulled through this. 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 - Time Spent With Patient Total time spent is greater than 50% in coordination of care (as documented) at patient's floor/unit and/or counseling patient: - Subjective Interval history: Intubated on ventilator she was requiring 100% O2 and 16 of PEEP throughout the night she is down now to 60% maintaining 89% saturation. At this time however the patient still on 16 of PEEP. She is now paralyzed. - Constitutional Vitals: Abnormal lab results WBC 13.8 K/mcL (4.3-11.1) H 11/10/16 02:00 MCHC 31.1 g/dL (31.6-35.5) L 11/10/16 02:00 RDW 16.3 % (11.5-14.5) H 11/10/16 02:00 Neutrophils # 12.3 K/mcL (1.6-8.9) H 11/10/16 02:00 Lymphocytes # 0.2 K/mcL (0.6-4.6) L 11/10/16 02:00 Nucleated RBCs/100 WBC 0.3 /100 WBC (0) H 11/10/16 02:00 Immature Plt Fraction 6.9 % (1.1-6.1) H 11/06/16 17:19 PT 13.9 Seconds (9.4-12.1) H 11/06/16 17:19 APTT 72.0 Seconds (26.0-36.0) H 11/10/16 02:00 D-Dimer 3921 ng/mLFEU (0-500) H 11/06/16 17:19 ABG pH 7.31 pH Units (7.32-7.45) L 11/10/16 09:03 ABG pCO2 68 mmHg (35-45) H 11/10/16 09:03 ABG pO2 65 mmHg (85-104) L 11/10/16 09:03 ABG HCO3 28.8 mEQ/L (21-27) H 11/10/16 09:03 ABG Total CO2 36.3 mEq/L (20-26) H 11/10/16 09:03 ABG O2 Saturation 90 % (95-98) L 11/10/16 09:03 ABG Base Excess 5.2 mEq/L (-2.0 to 3.0) H 11/10/16 09:03 Sodium 135 mEq/L (136-145) L 11/10/16 02:00 Chloride 94 mEq/L (98-109) L 11/10/16 02:00 BUN 65 mg/dL (7-20) H 11/10/16 02:00 Creatinine 2.31 mg/dL (0.57-1.11) H 11/10/16 02:00 Est GFR ( Amer) 26 (> 60) L 11/10/16 02:00 Est GFR (Non-Af Amer) 22 (> 60) L 11/10/16 02:00 BUN/Creatinine Ratio 28 (6-26) H 11/10/16 02:00 Glucose 174 mg/dL (70-99) H 11/10/16 02:00 POC Glucose 195 (58-89) H 11/09/16 23:50 Calculated Osmolality 303 (280-300) H 11/10/16 02:00 Calcium 8.1 mg/dL (8.6-10.8) L 11/10/16 02:00 Ionized Calcium 1.02 mmol/L (1.15-1.35) L 11/10/16 02:00 Phosphorus 7.8 mg/dL (2.3-4.7) H 11/10/16 02:00 ALT 67 Units/L (0-55) H 11/10/16 02:00 Creatine Kinase 253 Units/L (29-168) H 11/10/16 07:25 Troponin I 0.50 ng/mL (0-0.03) H* 11/07/16 05:33 B-Natriuretic Peptide 2717 pg/mL (0-100) H 11/06/16 17:19 Serum Total Protein 5.5 g/dL (6.0-8.3) L 11/10/16 02:00 Albumin 2.4 g/dL (3.5-5.0) L 11/10/16 02:00 Albumin/Globulin Ratio 0.8 (1.1-2.2) L 11/10/16 02:00 Triglycerides 153 mg/dL (< 150) H 11/10/16 07:25 Lipase 132 Units/L (8-78) H 11/10/16 07:25 General appearance: Present: no acute distress - Head Head exam: Present: atraumatic, normal inspection - Eye Eye exam: Present: normal appearance - Respiratory Respiratory exam: Present: decreased breath sounds - Cardiovascular Cardiovascular exam: Present: RRR - GI/Abdominal GI/Abdominal exam: Present: hypoactive bowel sounds, soft. Absent: tenderness ( She is paralyzed however.) - Extremities Exam Extremities exam: Present: normal inspection, pedal edema. Absent: tenderness - Neurological Exam Neurological exam: Present: altered (Patient is sedated and paralyzed on vent) - Psychiatric Psychiatric exam: Absent: agitated, anxious - Skin Skin exam: Present: dry Palliative Quality Palliative Quality: Screen for Code Status: Yes (Further screening awaiting family.), Screen for Goals of Care: Yes (Further screening awaiting family.), Screen for Pain: Yes, If Pain Regimen Started, Initiate Bowel Regimen: NA, Screen for Nausea/Vomitting: Yes Code Status: 11/07/16 04:31 CODE [Resuscitation Status: Active] [RES] Routine Comment: Resuscitation Status: Full Code CODE [Resuscitation Status: Active] [RES] Routine Comment: Resuscitation Status: DNR-Comfort Care-Arrest - Labs CBC & Chem 7: 11/10/16 02:00 11/10/16 02:00 Labs: Laboratory Results - last 24 hr 11/09/16 11/09/16 11/09/16 06:02 11:39 11:40 WBC RBC Hgb Hct MCV MCH MCHC RDW Plt Count MPV Immature Gran % Seg Neutrophils % Lymphocytes % Monocytes % Eosinophils % Basophils % Neutrophils # Lymphocytes # Monocytes # Eosinophils # Basophils # Nucleated RBCs/100 WBC APTT ABG pH 7.38 ABG pCO2 61 H ABG pO2 53 L ABG HCO3 36.1 H ABG Total CO2 38.0 H ABG O2 Saturation 86 L ABG Base Excess 8.2 H Blood Gas Modality VCT Inspired O2 100 PEEP Sodium Potassium Chloride Carbon Dioxide BUN Creatinine Est GFR ( Amer) Est GFR (Non-Af Amer) BUN/Creatinine Ratio Glucose POC Glucose 169 H 193 H Calculated Osmolality Lactic Acid Calcium Ionized Calcium Phosphorus Magnesium Total Bilirubin AST ALT Alkaline Phosphatase Creatine Kinase Serum Total Protein Albumin Globulin Albumin/Globulin Ratio Triglycerides Lipase 11/09/16 11/09/16 11/09/16 13:17 13:20 16:14 WBC RBC Hgb Hct MCV MCH MCHC RDW Plt Count MPV Immature Gran % Seg Neutrophils % Lymphocytes % Monocytes % Eosinophils % Basophils % Neutrophils # Lymphocytes # Monocytes # Eosinophils # Basophils # Nucleated RBCs/100 WBC APTT 39.9 H ABG pH 7.35 7.43 ABG pCO2 66 H 56 H ABG pO2 56 L 54 L ABG HCO3 36.4 H 37.2 H ABG Total CO2 38.4 H 38.9 H ABG O2 Saturation 87 L 89 L ABG Base Excess 7.8 H 10.5 H Blood Gas Modality VC+ ASSIST CONTROL Inspired O2 100 100 PEEP Sodium Potassium Chloride Carbon Dioxide BUN Creatinine Est GFR ( Amer) Est GFR (Non-Af Amer) BUN/Creatinine Ratio Glucose POC Glucose Calculated Osmolality Lactic Acid Calcium Ionized Calcium Phosphorus Magnesium Total Bilirubin AST ALT Alkaline Phosphatase Creatine Kinase Serum Total Protein Albumin Globulin Albumin/Globulin Ratio Triglycerides Lipase 11/09/16 11/09/16 11/09/16 17:02 18:15 20:00 WBC RBC Hgb Hct MCV MCH MCHC RDW Plt Count MPV Immature Gran % Seg Neutrophils % Lymphocytes % Monocytes % Eosinophils % Basophils % Neutrophils # Lymphocytes # Monocytes # Eosinophils # Basophils # Nucleated RBCs/100 WBC APTT 62.4 H D ABG pH 7.40 ABG pCO2 61 H ABG pO2 55 L ABG HCO3 37.8 H ABG Total CO2 39.7 H ABG O2 Saturation 88 L ABG Base Excess 10.3 H Blood Gas Modality VC Inspired O2 100 PEEP 16 Sodium Potassium Chloride Carbon Dioxide BUN Creatinine Est GFR ( Amer) Est GFR (Non-Af Amer) BUN/Creatinine Ratio Glucose POC Glucose 171 H Calculated Osmolality Lactic Acid Calcium Ionized Calcium Phosphorus Magnesium Total Bilirubin AST ALT Alkaline Phosphatase Creatine Kinase Serum Total Protein Albumin Globulin Albumin/Globulin Ratio Triglycerides Lipase 11/09/16 11/10/16 11/10/16 23:50 02:00 02:00 WBC 13.8 H RBC 4.71 Hgb 13.3 Hct 42.7 MCV 90.7 MCH 28.2 MCHC 31.1 L RDW 16.3 H Plt Count 183 MPV 10.8 Immature Gran % 0.5 Seg Neutrophils % 89.1 Lymphocytes % 1.6 Monocytes % 8.7 Eosinophils % 0.0 Basophils % 0.1 Neutrophils # 12.3 H Lymphocytes # 0.2 L Monocytes # 1.2 Eosinophils # 0.0 Basophils # 0.0 Nucleated RBCs/100 WBC 0.3 H APTT ABG pH ABG pCO2 ABG pO2 ABG HCO3 ABG Total CO2 ABG O2 Saturation ABG Base Excess Blood Gas Modality Inspired O2 PEEP Sodium 135 L Potassium 4.5 Chloride 94 L Carbon Dioxide 29 BUN 65 H Creatinine 2.31 H Est GFR ( Amer) 26 L Est GFR (Non-Af Amer) 22 L BUN/Creatinine Ratio 28 H Glucose 174 H POC Glucose 195 H Calculated Osmolality 303 H Lactic Acid Calcium 8.1 L Ionized Calcium Phosphorus Magnesium Total Bilirubin 0.3 AST 17 ALT 67 H Alkaline Phosphatase 69 Creatine Kinase Serum Total Protein 5.5 L Albumin 2.4 L Globulin 3.1 Albumin/Globulin Ratio 0.8 L Triglycerides Lipase 11/10/16 11/10/16 11/10/16 02:00 02:00 07:25 WBC RBC Hgb Hct MCV MCH MCHC RDW Plt Count MPV Immature Gran % Seg Neutrophils % Lymphocytes % Monocytes % Eosinophils % Basophils % Neutrophils # Lymphocytes # Monocytes # Eosinophils # Basophils # Nucleated RBCs/100 WBC APTT 72.0 H ABG pH ABG pCO2 ABG pO2 ABG HCO3 ABG Total CO2 ABG O2 Saturation ABG Base Excess Blood Gas Modality Inspired O2 PEEP Sodium Potassium Chloride Carbon Dioxide BUN Creatinine Est GFR ( Amer) Est GFR (Non-Af Amer) BUN/Creatinine Ratio Glucose POC Glucose Calculated Osmolality Lactic Acid 1.1 Calcium Ionized Calcium 1.02 L Phosphorus 7.8 H Magnesium 2.0 Total Bilirubin AST ALT Alkaline Phosphatase Creatine Kinase Serum Total Protein Albumin Globulin Albumin/Globulin Ratio Triglycerides Lipase 11/10/16 11/10/16 07:25 09:03 WBC RBC Hgb Hct MCV MCH MCHC RDW Plt Count MPV Immature Gran % Seg Neutrophils % Lymphocytes % Monocytes % Eosinophils % Basophils % Neutrophils # Lymphocytes # Monocytes # Eosinophils # Basophils # Nucleated RBCs/100 WBC APTT ABG pH 7.31 L ABG pCO2 68 H ABG pO2 65 L ABG HCO3 28.8 H ABG Total CO2 36.3 H ABG O2 Saturation 90 L ABG Base Excess 5.2 H Blood Gas Modality VENT Inspired O2 70 PEEP Sodium Potassium Chloride Carbon Dioxide BUN Creatinine Est GFR ( Amer) Est GFR (Non-Af Amer) BUN/Creatinine Ratio Glucose POC Glucose Calculated Osmolality Lactic Acid Calcium Ionized Calcium Phosphorus Magnesium Total Bilirubin AST ALT Alkaline Phosphatase Creatine Kinase 253 H Serum Total Protein Albumin Globulin Albumin/Globulin Ratio Triglycerides 153 H Lipase 132 H - Impressions Impressions Chest X-Ray 11/10/16 00:01 IMPRESSION: Stable appearance of the chest. Bilateral pulmonary opacities and a left pleural effusion. D/ / 11/10/2016 07:38:00 Ela Aleman MD / estela Interpreting Provider: Ela Aleman MD - ABG Interpretation ABG results: ABG ABG pH 7.31 pH Units (7.32-7.45) L 11/10/16 09:03 ABG pCO2 68 mmHg (35-45) H 11/10/16 09:03 ABG pO2 65 mmHg (85-104) L 11/10/16 09:03 ABG O2 Saturation 90 % (95-98) L 11/10/16 09:03 PT/INR, D-dimer PT 13.9 Seconds (9.4-12.1) H 11/06/16 17:19 D-Dimer 3921 ng/mLFEU (0-500) H 11/06/16 17:19 Consult Discharge Plan - Plan Referrals: Kay Palmer [Primary Care Provider] -
[2016-11-10] MEDS: *HR* Heparin 5,000 UNIT/ML VIAL SQ SCH ×2 (10:19→17:10)
[2016-11-10 13:24] LABS: Adenovirus Not Detected (Not Detect); Bordetella Pertussis Not Detected (Not Detect); Chlamydophila pneumoniae Not Detected (Not Detect); Coronavirus 229E Not Detected (Not Detect); Coronavirus HKU1 Not Detected (Not Detect); Coronavirus NL63 Not Detected (Not Detect); Coronavirus OC43 Not Detected (Not Detect); Human Metapneumovirus Not Detected (Not Detect); Human Rhinovirus/Enterovirus Not Detected (Not Detect); Influenza A Subtype 2009 H1 Not Detected (Not Detect); Influenza A Untypeable Not Detected (Not Detect); Influenza B Not Detected (Not Detect); Mycoplasma pneumoniae Not Detected (Not Detect); Parainfluenza Virus 1 Not Detected (Not Detect); Parainfluenza Virus 2 Not Detected (Not Detect); Parainfluenza Virus 3 Not Detected (Not Detect); Parainfluenza Virus 4 Not Detected (Not Detect); Respiratory Syncytial Virus Not Detected (Not Detect)
[2016-11-10] MEDS ORDERED: Furosemide 40 MG/4 ML VIAL IVP ONE (14:06)
[2016-11-10 14:55] LABS: Basophils % 0.1 %; Eosinophils % 0.1 %; Hematocrit 42.6 % (35.3-44.9); Hemoglobin 13.6 g/dL (11.5-15.4); Immature Granulocytes % 0.6 % (0-4); Lymphocytes # 0.7 K/mcL (0.6-4.6); Lymphocytes % 4.5 %; Mean Corpuscular HGB Conc 31.9 g/dL (31.6-35.5); Mean Corpuscular Volume 87.8 fL (83.0-100.0); Mean Platelet Volume 10.8 fL (9.4-12.4); Monocytes # 1.2 K/mcL (0.0-1.3); Monocytes % 8.6 %; Neutrophils # 12.4 K/mcL (1.6-8.9); Nucleated Red Blood Cells 0.3 /100 WBC (0); Platelet Count 163 K/mcL (140-400); Red Blood Count 4.85 M/mcL (3.82-4.97); Red Cell Distribution Width 16.1 % (11.5-14.5); Segmented Neutrophils % 86.1 %
[2016-11-10 15:09] LABS: Albumin 2.5 g/dL (3.5-5.0); Albumin/Globulin Ratio 0.8 (1.1-2.2); Bilirubin,Total 0.4 mg/dL (0.2-1.2); Calcium 8.5 mg/dL (8.6-10.8); Globulin 3.1 g/dL (2.4-3.5); Potassium 4.5 mEq/L (3.5-4.5); Total Protein 5.6 g/dL (6.0-8.3)
[2016-11-10] MEDS: Azithromycin 500 MG in D5% in Water 250 ML IVPB SCH (17:10)
[2016-11-10 20:13] LABS: ABG Base Excess 8.8 mEq/L (-2.0 to 3.0); ABG HCO3 36.3 mEQ/L (21-27); ABG Oxygen Saturation 89 % (95-98); ABG PCO2 60 mmHg (35-45); ABG PH 7.39 pH Units (7.32-7.45); ABG PO2 58 mmHg (85-104); ABG TCO2 38.1 mEq/L (20-26); Blood Gas FiO2 60 %
[2016-11-11] MEDS: *HR* Heparin 5,000 UNIT/ML VIAL SQ SCH ×3 (01:01→17:40)
[2016-11-11] MEDS: FentaNYL (PF) 3,000 MCG in 0.9 % Sodium Chloride 240 ML IVC SCH ×2 (01:33→23:30)
[2016-11-11 03:07] LABS: Basophils % 0.1 %; Eosinophils % 0.3 %; Hematocrit 41.6 % (35.3-44.9); Hemoglobin 13.6 g/dL (11.5-15.4); Immature Granulocytes % 0.5 % (0-4); Lymphocytes # 0.8 K/mcL (0.6-4.6); Lymphocytes % 5.7 %; Mean Corpuscular HGB Conc 32.7 g/dL (31.6-35.5); Mean Corpuscular Hemoglobin 28.8 pg (28.0-33.3); Mean Corpuscular Volume 87.9 fL (83.0-100.0); Mean Platelet Volume 10.2 fL (9.4-12.4); Monocytes # 1.1 K/mcL (0.0-1.3); Monocytes % 8.3 %; Neutrophils # 11.2 K/mcL (1.6-8.9); Nucleated Red Blood Cells 0.2 /100 WBC (0); Platelet Count 159 K/mcL (140-400); Red Blood Count 4.73 M/mcL (3.82-4.97); Red Cell Distribution Width 16.1 % (11.5-14.5); Segmented Neutrophils % 85.1 %
[2016-11-11 03:11] LABS: Ionized Calcium 1.04 mmol/L (1.15-1.35)
[2016-11-11 03:22] LABS: Albumin 2.5 g/dL (3.5-5.0); Albumin/Globulin Ratio 0.8 (1.1-2.2); Bilirubin,Direct 0.3 mg/dL (0.0-0.5); Bilirubin,Indirect 0.3 mg/dL (0.0-1.2); Bilirubin,Total 0.6 mg/dL (0.2-1.2); Calcium 8.4 mg/dL (8.6-10.8); Magnesium 1.9 mg/dL (1.6-2.6); Phosphorous 6.4 mg/dL (2.3-4.7); Potassium 4.2 mEq/L (3.5-4.5); Total Protein 5.5 g/dL (6.0-8.3)
[2016-11-11] MEDS: Calcium Gluconate 1,000 MG in D5% in Water 100 ML IVPB PRN ×2 (03:38→16:21)
[2016-11-11] MEDS: Ipratropium/Albuterol Neb 3 ML IH SCH ×6 (03:47→22:52)
[2016-11-11 04:20] LABS: ABG Base Excess 8.3 mEq/L (-2.0 to 3.0); ABG HCO3 36.7 mEQ/L (21-27); ABG Oxygen Saturation 88 % (95-98); ABG PCO2 65 mmHg (35-45); ABG PH 7.36 pH Units (7.32-7.45); ABG PO2 57 mmHg (85-104); ABG TCO2 38.7 mEq/L (20-26)
[2016-11-11 04:21] LABS: Blood Gas FiO2 65 %
[2016-11-11] MEDS: Insulin LISPRO 300 UNITS/3 ML VIAL SQ SCH ×4 (05:20→23:33)
[2016-11-11] MEDS ORDERED: Furosemide 40 MG/4 ML VIAL IVP ONE ×3 (06:48→14:25)
--- NOTE | 2016-11-11 06:58 | Pulmonology Progress Note ---
<Guero Blackwell - Last Filed: 11/11/16 08:55> Date of Encounter: 11/11/16 Time of Encounter: 06:58 Assessment and Plan (1) Acute respiratory failure with hypercapnia Current Visit: Yes Status: Acute And hypoxia. Stable but critical. Patient still requiring large amounts of FiO2 and PEEP but requirements are decreasing. At this point the etiology remains elusive. PE, COPD exacerbation, pneumonia, pulmonary edema are considerations PE appears less likely at this time, heparin drip stopped. Treating with antibiotics, steroids have stopped. We give continue lasix for diuresis as blood pressure allows. We will wean off sedation as tolerated. Paralytic has been stopped. Will turn away from one side to help promote lung recruitment. (2) COPD (chronic obstructive pulmonary disease) Current Visit: Yes Status: Acute With possible exacerbation. We will treat with bronchodilators, antibiotics day 5, steriods have been stopped while on paralytic. We will continue to monitor. Qualifiers: COPD type: unspecified COPD Qualified Code(s): J44.9 - Chronic obstructive pulmonary disease, unspecified (3) Breast cancer Current Visit: No Status: Acute Stage I. Currently receiving radiation therapy. Qualifiers: Breast location: upper outer quadrant of breast Patient gender: female Laterality: right Qualified Code(s): C50.411 - Malignant neoplasm of upper- outer quadrant of right female breast (4) Hypertension Current Visit: Yes Status: Acute Patient was hypertensive on presentation however blood pressure has normalized and is running low. This morning MAPs are around 70. Will hold home blood pressure medications. Patient has not required pressor therapy. Qualifiers: Hypertension type: essential hypertension Qualified Code(s): I10 - Essential (primary) hypertension (5) DVT prophylaxis Current Visit: Yes Status: Acute Patient was on therapeutic heparin drip, which was stopped yesterday. It. Currently on heparin 5000 units subcutaneous every 8. (6) Goals of care, counseling/discussion Current Visit: Yes Status: Acute Patient is DNR CCA. Palliative is following and we appreciate their assistance. The brought paperwork that designated him medical power of wire stockkeeper. We will continue with aggressive measures at this time however the states that the patient would not wish long-term life-sustaining measures including tracheostomy and PEG tube placement. Patient was able to wake up enough yesterday to respond to questions and she was able to indicate that she wanted to continue with aggressive treatment at this time. We will continually reassess goals of care. Subjective Principal diagnosis: Respiratory failure Interval history: Patient seen and examined at bedside. Patient remains intubated and sedated. Will open eyes to verbal commands, will not follow commands. Does not appear to be in any acute distress. Objective PUL Vital signs: Last Vital Signs Temp 98.2 F 11/10/16 23:01 Pulse 91 11/11/16 05:57 Resp 18 11/11/16 05:57 BP 81/56 11/11/16 05:57 Pulse Ox 88 L 11/11/16 05:57 General appearance: no acute distress Effort: normal Auscultation: bilateral: rhonchi Cardiovascular: regular rate and rhythm Gastrointestinal: hypoactive bowel sounds, soft, non-tender, non-distended Extremities: no cyanosis, no clubbing, edema (1+) unable to assess due to mental status Ventilator Settings Ventilator Settings: Ventilator Settings, Last 8 Hours Ventilator Mode VC+ Ventilator Mode VC+ Ventilator Mode VC+ Ventilator Mode VC+ Ventilator Mode VC+ Ventilator Mode VC+ Ventilator Mode VC+ Ventilator Mode VC+ Ventilator Mode VC+ Ventilator Mode VC+ Ventilator Mode VC+ Ventilator Mode VC+ Ventilator Mode VC+ Ventilator Tidal Volume 400 Setting Ventilator Tidal Volume 400 Setting Ventilator Tidal Volume 400 Setting Ventilator Tidal Volume 400 Setting Ventilator Tidal Volume 400 Setting Ventilator Tidal Volume 400 Setting Ventilator Tidal Volume 400 Setting Ventilator Tidal Volume 400 Setting Ventilator Tidal Volume 400 Setting Ventilator Tidal Volume 400 Setting Ventilator Tidal Volume 400 Setting Ventilator Tidal Volume 400 Setting Ventilator Tidal Volume 400 Setting Ventilator Respiratory Rate 18 Setting Ventilator Respiratory Rate 18 Setting Ventilator Respiratory Rate 18 Setting Ventilator Respiratory Rate 18 Setting Ventilator Respiratory Rate 18 Setting Ventilator Respiratory Rate 18 Setting Ventilator Respiratory Rate 18 Setting Ventilator Respiratory Rate 18 Setting Ventilator Respiratory Rate 18 Setting Ventilator Respiratory Rate 18 Setting Ventilator Respiratory Rate 18 Setting Ventilator Respiratory Rate 18 Setting Ventilator Respiratory Rate 18 Setting Actual Respiratory Rate 18 Actual Respiratory Rate 18 Actual Respiratory Rate 18 Actual Respiratory Rate 18 Actual Respiratory Rate 18 Actual Respiratory Rate 18 Actual Respiratory Rate 18 Actual Respiratory Rate 18 Actual Respiratory Rate 18 Actual Respiratory Rate 19 Positive End Expiratory 12 Pressure Positive End Expiratory 12 Pressure Positive End Expiratory 12 Pressure Positive End Expiratory 12 Pressure Positive End Expiratory 12 Pressure Positive End Expiratory 12 Pressure Positive End Expiratory 12 Pressure Positive End Expiratory 12 Pressure Positive End Expiratory 12 Pressure Positive End Expiratory 12 Pressure Positive End Expiratory 12 Pressure Positive End Expiratory 12 Pressure Positive End Expiratory 12 Pressure Peak Inspiratory Airway 31 Pressure Peak Inspiratory Airway 32 Pressure Peak Inspiratory Airway 32 Pressure Peak Inspiratory Airway 30 Pressure Peak Inspiratory Airway 31 Pressure Peak Inspiratory Airway 30 Pressure Peak Inspiratory Airway 32 Pressure Peak Inspiratory Airway 32 Pressure Peak Inspiratory Airway 32 Pressure Peak Inspiratory Airway 32 Pressure Results - Laboratory Findings CBC and BMP: 11/11/16 03:00 11/11/16 03:00 ABG ABG pH 7.36 pH Units (7.32-7.45) 11/11/16 04:10 ABG pCO2 65 mmHg (35-45) H 11/11/16 04:10 ABG pO2 57 mmHg (85-104) L 11/11/16 04:10 ABG O2 Saturation 88 % (95-98) L 11/11/16 04:10 PT/INR, D-dimer PT 13.9 Seconds (9.4-12.1) H 11/06/16 17:19 D-Dimer 3921 ng/mLFEU (0-500) H 11/06/16 17:19 Abnormal lab findings: Abnormal lab results WBC 13.1 K/mcL (4.3-11.1) H 11/11/16 03:00 RDW 16.1 % (11.5-14.5) H 11/11/16 03:00 Neutrophils # 11.2 K/mcL (1.6-8.9) H 11/11/16 03:00 Nucleated RBCs/100 WBC 0.2 /100 WBC (0) H 11/11/16 03:00 Immature Plt Fraction 6.9 % (1.1-6.1) H 11/06/16 17:19 PT 13.9 Seconds (9.4-12.1) H 11/06/16 17:19 APTT 72.0 Seconds (26.0-36.0) H 11/10/16 02:00 D-Dimer 3921 ng/mLFEU (0-500) H 11/06/16 17:19 ABG pCO2 65 mmHg (35-45) H 11/11/16 04:10 ABG pO2 57 mmHg (85-104) L 11/11/16 04:10 ABG HCO3 36.7 mEQ/L (21-27) H 11/11/16 04:10 ABG Total CO2 38.7 mEq/L (20-26) H 11/11/16 04:10 ABG O2 Saturation 88 % (95-98) L 11/11/16 04:10 ABG Base Excess 8.3 mEq/L (-2.0 to 3.0) H 11/11/16 04:10 Chloride 93 mEq/L (98-109) L 11/11/16 03:00 Carbon Dioxide 31 mEq/L (19-29) H 11/11/16 03:00 BUN 72 mg/dL (7-20) H 11/11/16 03:00 Creatinine 2.28 mg/dL (0.57-1.11) H 11/11/16 03:00 Est GFR ( Amer) 26 (> 60) L 11/11/16 03:00 Est GFR (Non-Af Amer) 22 (> 60) L 11/11/16 03:00 BUN/Creatinine Ratio 32 (6-26) H 11/11/16 03:00 Glucose 109 mg/dL (70-99) H 11/11/16 03:00 Calculated Osmolality 306 (280-300) H 11/11/16 03:00 Calcium 8.4 mg/dL (8.6-10.8) L 11/11/16 03:00 Ionized Calcium 1.04 mmol/L (1.15-1.35) L 11/11/16 03:00 Phosphorus 6.4 mg/dL (2.3-4.7) H 11/11/16 03:00 AST 37 Units/L (5-34) H 11/11/16 03:00 ALT 57 Units/L (0-55) H 11/11/16 03:00 Creatine Kinase 253 Units/L (29-168) H 11/10/16 07:25 Troponin I 0.50 ng/mL (0-0.03) H* 11/07/16 05:33 B-Natriuretic Peptide 2717 pg/mL (0-100) H 11/06/16 17:19 Serum Total Protein 5.5 g/dL (6.0-8.3) L 11/11/16 03:00 Albumin 2.5 g/dL (3.5-5.0) L 11/11/16 03:00 Albumin/Globulin Ratio 0.8 (1.1-2.2) L 11/11/16 03:00 Triglycerides 153 mg/dL (< 150) H 11/10/16 07:25 Lipase 132 Units/L (8-78) H 11/10/16 07:25 - Clinical Findings Intake & Output: Intake & Output 11/10/16 11/10/16 11/11/16 15:59 23:59 07:59 Intake Total 710 / 710 850 / 850 414 / 414 Output Total 800 / 800 1400 / 1400 400 / 400 Balance -90 / -90 -550 / -550 Consult Discharge Plan - Plan Referrals: Kay Palmer [Primary Care Provider] - <Sai Mcconnell - Last Filed: 11/11/16 10:04> Date of Encounter: 11/11/16 Objective PUL Vital signs: Last Vital Signs Temp 98.4 F 11/11/16 08:00 Pulse 100 11/11/16 08:00 Resp 18 11/11/16 08:00 BP 115/72 11/11/16 08:00 Pulse Ox 86 L 11/11/16 08:00 Ventilator Settings Ventilator Settings: Ventilator Settings, Last 8 Hours Ventilator Mode VC+ Ventilator Mode VC+ Ventilator Mode VC+ Ventilator Mode VC+ Ventilator Mode VC+ Ventilator Mode VC+ Ventilator Mode VC+ Ventilator Mode VC+ Ventilator Mode VC+ Ventilator Mode VC+ Ventilator Mode VC+ Ventilator Tidal Volume 400 Setting Ventilator Tidal Volume 400 Setting Ventilator Tidal Volume 400 Setting Ventilator Tidal Volume 400 Setting Ventilator Tidal Volume 400 Setting Ventilator Tidal Volume 400 Setting Ventilator Tidal Volume 400 Setting Ventilator Tidal Volume 400 Setting Ventilator Tidal Volume 400 Setting Ventilator Tidal Volume 400 Setting Ventilator Tidal Volume 400 Setting Ventilator Respiratory Rate 18 Setting Ventilator Respiratory Rate 18 Setting Ventilator Respiratory Rate 18 Setting Ventilator Respiratory Rate 18 Setting Ventilator Respiratory Rate 18 Setting Ventilator Respiratory Rate 18 Setting Ventilator Respiratory Rate 18 Setting Ventilator Respiratory Rate 18 Setting Ventilator Respiratory Rate 18 Setting Ventilator Respiratory Rate 18 Setting Ventilator Respiratory Rate 18 Setting Actual Respiratory Rate 18 Actual Respiratory Rate 18 Actual Respiratory Rate 18 Actual Respiratory Rate 18 Actual Respiratory Rate 18 Actual Respiratory Rate 18 Actual Respiratory Rate 18 Actual Respiratory Rate 18 Positive End Expiratory 12 Pressure Positive End Expiratory 12 Pressure Positive End Expiratory 12 Pressure Positive End Expiratory 12 Pressure Positive End Expiratory 12 Pressure Positive End Expiratory 12 Pressure Positive End Expiratory 12 Pressure Positive End Expiratory 12 Pressure Positive End Expiratory 12 Pressure Positive End Expiratory 12 Pressure Positive End Expiratory 12 Pressure Peak Inspiratory Airway 33 Pressure Peak Inspiratory Airway 34 Pressure Peak Inspiratory Airway 33 Pressure Peak Inspiratory Airway 31 Pressure Peak Inspiratory Airway 32 Pressure Peak Inspiratory Airway 32 Pressure Peak Inspiratory Airway 30 Pressure Peak Inspiratory Airway 31 Pressure Results - Laboratory Findings CBC and BMP: 11/11/16 03:00 11/11/16 03:00 ABG ABG pH 7.36 pH Units (7.32-7.45) 11/11/16 04:10 ABG pCO2 65 mmHg (35-45) H 11/11/16 04:10 ABG pO2 57 mmHg (85-104) L 11/11/16 04:10 ABG O2 Saturation 88 % (95-98) L 11/11/16 04:10 PT/INR, D-dimer PT 13.9 Seconds (9.4-12.1) H 11/06/16 17:19 D-Dimer 3921 ng/mLFEU (0-500) H 11/06/16 17:19 Abnormal lab findings: Abnormal lab results WBC 13.1 K/mcL (4.3-11.1) H 11/11/16 03:00 RDW 16.1 % (11.5-14.5) H 11/11/16 03:00 Neutrophils # 11.2 K/mcL (1.6-8.9) H 11/11/16 03:00 Nucleated RBCs/100 WBC 0.2 /100 WBC (0) H 11/11/16 03:00 Immature Plt Fraction 6.9 % (1.1-6.1) H 11/06/16 17:19 PT 13.9 Seconds (9.4-12.1) H 11/06/16 17:19 APTT 72.0 Seconds (26.0-36.0) H 11/10/16 02:00 D-Dimer 3921 ng/mLFEU (0-500) H 11/06/16 17:19 ABG pCO2 65 mmHg (35-45) H 11/11/16 04:10 ABG pO2 57 mmHg (85-104) L 11/11/16 04:10 ABG HCO3 36.7 mEQ/L (21-27) H 11/11/16 04:10 ABG Total CO2 38.7 mEq/L (20-26) H 11/11/16 04:10 ABG O2 Saturation 88 % (95-98) L 11/11/16 04:10 ABG Base Excess 8.3 mEq/L (-2.0 to 3.0) H 11/11/16 04:10 Chloride 93 mEq/L (98-109) L 11/11/16 03:00 Carbon Dioxide 31 mEq/L (19-29) H 11/11/16 03:00 BUN 72 mg/dL (7-20) H 11/11/16 03:00 Creatinine 2.28 mg/dL (0.57-1.11) H 11/11/16 03:00 Est GFR ( Amer) 26 (> 60) L 11/11/16 03:00 Est GFR (Non-Af Amer) 22 (> 60) L 11/11/16 03:00 BUN/Creatinine Ratio 32 (6-26) H 11/11/16 03:00 Glucose 109 mg/dL (70-99) H 11/11/16 03:00 Calculated Osmolality 306 (280-300) H 11/11/16 03:00 Calcium 8.4 mg/dL (8.6-10.8) L 11/11/16 03:00 Ionized Calcium 1.04 mmol/L (1.15-1.35) L 11/11/16 03:00 Phosphorus 6.4 mg/dL (2.3-4.7) H 11/11/16 03:00 AST 37 Units/L (5-34) H 11/11/16 03:00 ALT 57 Units/L (0-55) H 11/11/16 03:00 Creatine Kinase 253 Units/L (29-168) H 11/10/16 07:25 Troponin I 0.50 ng/mL (0-0.03) H* 11/07/16 05:33 B-Natriuretic Peptide 2717 pg/mL (0-100) H 11/06/16 17:19 Serum Total Protein 5.5 g/dL (6.0-8.3) L 11/11/16 03:00 Albumin 2.5 g/dL (3.5-5.0) L 11/11/16 03:00 Albumin/Globulin Ratio 0.8 (1.1-2.2) L 11/11/16 03:00 Triglycerides 153 mg/dL (< 150) H 11/10/16 07:25 Lipase 132 Units/L (8-78) H 11/10/16 07:25 - Clinical Findings Intake & Output: Intake & Output 11/10/16 11/11/16 11/11/16 23:59 07:59 15:59 Intake Total 850 / 850 414 / 414 Output Total 1400 / 1400 650 / 650 Balance -550 / -550 -236 / -236 - Attending Attestation I examined this patient and my medical decision-making was reviewed with the AD TAKER/PA/Advanced Practice Nurse/Resident Physician. I agree with the documented findings, disposition and treatment plan as described except to the extent set forth below. I spent 35min of Critical Care time with this patient. It involved decision making of high complexity to assess, manipulate, and support vital organ system failure and/or to prevent further life threatening deterioration of the patient' s condition. The time involved in the performance of separately reportable procedures was not counted toward critical care time. Patient seen and examined at bedside Labs, radiology, chart personally reviewed. All lines examined without evidence of infection. Neuro: Intubated and sedated. no longer paralyzed goal RASS -(2). Does have spontaneous eye opening and movement of all ext's. Pulm: Severe Hypoxic respiratory failure ?PNA with ARDS in setting of advanced COPD. Vent adjusted per ARDSnet protocol. Some worsening in whatwas likely lung recrutiment of left side. worsening hypoxia overnight. vent adjusted to increase PEEP. Fio2 now at 70%. wean for goal Pao2 55. restart steroids. Cards: HFpEF diuresis. goal 1L today as tolerated by BP (less room with increased PEEP. FEN-GI: PPI prophylaxis cont Bowel regimen Enteral feedings on hold for (likely ) narcotic induced illeus. OG to LIS. bowel regimen Renal: PRICE multifactorial. Creatinine stable overnight but good UOP. cont to Trial diuretic with BID RFPs ID: CAP cont ABx cultures negative thus far. Heme/Onc: H/H stable.empric heparin gtt stopped. DVT prophylaxis with subQ heparin Endo: SSi and monitor glucose Integ: skin care per ICU protocol CODE: [id number] - Prognosis remains poor. Family updated at bedside.
--- NOTE | 2016-11-11 07:51 | Palliative Progress Note ---
Date of Encounter: 11/11/16 Time of Encounter: 07:30 - Assessment and plan (1) Pain Current Visit: Yes Status: Acute Assessment and plan: Well-controlled on fentanyl drip No changes today. Continue current medications today 11/11/2016 (2) Dyspnea Current Visit: Yes Status: Acute Assessment and plan: She is now off paralysis. Patient does however have an increasing FiO2 requirement now up to 70% and PEEP is up to 12. Oxygen saturations running in the 85-86% range. Qualifiers: Dyspnea type: shortness of breath Qualified Code(s): R06.02 - Shortness of breath (3) Acute exacerbation of chronic obstructive pulmonary disease (COPD) Current Visit: Yes Status: Acute Assessment and plan: still on vent plan per pulmonary team. (4) Acute respiratory failure with hypercapnia Current Visit: Yes Status: Acute Assessment and plan: cont current meds and treatment plan (5) Breast cancer Current Visit: No Status: Acute Assessment and plan: History turn to cancer Center for continued care of the patient if she is pulled through this. 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 We will plan on calling with report after ICU rounds. - Time Spent With Patient Total time spent is greater than 50% in coordination of care (as documented) at patient's floor/unit and/or counseling patient: - Subjective Interval history: Intubated on ventilator she was requiring 100% O2 and 16 of PEEP throughout the night she is down now to 60% maintaining 89% saturation. At this time however the patient still on 16 of PEEP. She is now paralyzed. - Constitutional Vitals: Abnormal lab results WBC 13.1 K/mcL (4.3-11.1) H 11/11/16 03:00 RDW 16.1 % (11.5-14.5) H 11/11/16 03:00 Neutrophils # 11.2 K/mcL (1.6-8.9) H 11/11/16 03:00 Nucleated RBCs/100 WBC 0.2 /100 WBC (0) H 11/11/16 03:00 Immature Plt Fraction 6.9 % (1.1-6.1) H 11/06/16 17:19 PT 13.9 Seconds (9.4-12.1) H 11/06/16 17:19 APTT 72.0 Seconds (26.0-36.0) H 11/10/16 02:00 D-Dimer 3921 ng/mLFEU (0-500) H 11/06/16 17:19 ABG pCO2 65 mmHg (35-45) H 11/11/16 04:10 ABG pO2 57 mmHg (85-104) L 11/11/16 04:10 ABG HCO3 36.7 mEQ/L (21-27) H 11/11/16 04:10 ABG Total CO2 38.7 mEq/L (20-26) H 11/11/16 04:10 ABG O2 Saturation 88 % (95-98) L 11/11/16 04:10 ABG Base Excess 8.3 mEq/L (-2.0 to 3.0) H 11/11/16 04:10 Chloride 93 mEq/L (98-109) L 11/11/16 03:00 Carbon Dioxide 31 mEq/L (19-29) H 11/11/16 03:00 BUN 72 mg/dL (7-20) H 11/11/16 03:00 Creatinine 2.28 mg/dL (0.57-1.11) H 11/11/16 03:00 Est GFR ( Amer) 26 (> 60) L 11/11/16 03:00 Est GFR (Non-Af Amer) 22 (> 60) L 11/11/16 03:00 BUN/Creatinine Ratio 32 (6-26) H 11/11/16 03:00 Glucose 109 mg/dL (70-99) H 11/11/16 03:00 Calculated Osmolality 306 (280-300) H 11/11/16 03:00 Calcium 8.4 mg/dL (8.6-10.8) L 11/11/16 03:00 Ionized Calcium 1.04 mmol/L (1.15-1.35) L 11/11/16 03:00 Phosphorus 6.4 mg/dL (2.3-4.7) H 11/11/16 03:00 AST 37 Units/L (5-34) H 11/11/16 03:00 ALT 57 Units/L (0-55) H 11/11/16 03:00 Creatine Kinase 253 Units/L (29-168) H 11/10/16 07:25 Troponin I 0.50 ng/mL (0-0.03) H* 11/07/16 05:33 B-Natriuretic Peptide 2717 pg/mL (0-100) H 11/06/16 17:19 Serum Total Protein 5.5 g/dL (6.0-8.3) L 11/11/16 03:00 Albumin 2.5 g/dL (3.5-5.0) L 11/11/16 03:00 Albumin/Globulin Ratio 0.8 (1.1-2.2) L 11/11/16 03:00 Triglycerides 153 mg/dL (< 150) H 11/10/16 07:25 Lipase 132 Units/L (8-78) H 11/10/16 07:25 General appearance: Present: no acute distress - Head Head exam: Present: atraumatic, normal inspection - ENT ENT exam: Present: mucous membranes moist (On vent with endotracheal tube) - Respiratory Respiratory exam: Present: decreased breath sounds (Rhonchi are noted) - Cardiovascular Cardiovascular exam: Present: RRR - GI/Abdominal GI/Abdominal exam: Present: normal bowel sounds, soft. Absent: tenderness - Extremities Exam Extremities exam: Present: normal inspection. Absent: pedal edema, tenderness - Neurological Exam Neurological exam: Present: altered - Psychiatric Psychiatric exam: Absent: agitated, anxious - Skin Skin exam: Present: dry, warm Palliative Quality Palliative Quality: Screen for Code Status: Yes (Further screening awaiting family.), Screen for Goals of Care: Yes (Further screening awaiting family.), Screen for Pain: Yes, If Pain Regimen Started, Initiate Bowel Regimen: NA, Screen for Nausea/Vomitting: Yes Code Status: 11/07/16 04:31 CODE [Resuscitation Status: Active] [RES] Routine Comment: Resuscitation Status: Full Code CODE [Resuscitation Status: Active] [RES] Routine Comment: Resuscitation Status: DNR-Comfort Care-Arrest - Labs CBC & Chem 7: 11/11/16 03:00 11/11/16 03:00 Labs: Laboratory Results - last 24 hr 11/10/16 11/10/16 11/10/16 05:14 07:25 07:25 WBC RBC Hgb Hct MCV MCH MCHC RDW Plt Count MPV Immature Gran % Seg Neutrophils % Lymphocytes % Monocytes % Eosinophils % Basophils % Neutrophils # Lymphocytes # Monocytes # Eosinophils # Basophils # Nucleated RBCs/100 WBC ABG pH ABG pCO2 ABG pO2 ABG HCO3 ABG Total CO2 ABG O2 Saturation ABG Base Excess Blood Gas Modality Inspired O2 Sodium Potassium Chloride Carbon Dioxide BUN Creatinine Est GFR ( Amer) Est GFR (Non-Af Amer) BUN/Creatinine Ratio Glucose POC Glucose 161 H Calculated Osmolality Lactic Acid 1.1 Calcium Ionized Calcium Phosphorus Magnesium Total Bilirubin Direct Bilirubin Indirect Bilirubin AST ALT Alkaline Phosphatase Creatine Kinase 253 H Serum Total Protein Albumin Globulin Albumin/Globulin Ratio Triglycerides 153 H Lipase 132 H Chlamy pneumoniae PCR Adenovirus (PCR) B. pertussis DNA (PCR) Coronavirus OC43 (PCR) Coronavirus HKU1 (PCR) Coronavirus 229E (PCR) Coronavirus NL63 (PCR) Human Metapneumovirus Influenza A (H1) PCR Influ A (H1N1/09) PCR Influenza A (H3) PCR Influenza A Untype (PCR) Influenza Type B (PCR) M.pneumoniae DNA (PCR) Parainfluenza 1 (PCR) Parainfluenza 2 (PCR) Parainfluenza 3 (PCR) Parainfluenza 4 (PCR) RSV (PCR) Entero/Rhino (PCR) 11/10/16 11/10/16 11/10/16 09:03 11:01 11:45 WBC RBC Hgb Hct MCV MCH MCHC RDW Plt Count MPV Immature Gran % Seg Neutrophils % Lymphocytes % Monocytes % Eosinophils % Basophils % Neutrophils # Lymphocytes # Monocytes # Eosinophils # Basophils # Nucleated RBCs/100 WBC ABG pH 7.31 L ABG pCO2 68 H ABG pO2 65 L ABG HCO3 28.8 H ABG Total CO2 36.3 H ABG O2 Saturation 90 L ABG Base Excess 5.2 H Blood Gas Modality VENT Inspired O2 70 Sodium Potassium Chloride Carbon Dioxide BUN Creatinine Est GFR ( Amer) Est GFR (Non-Af Amer) BUN/Creatinine Ratio Glucose POC Glucose 138 H Calculated Osmolality Lactic Acid Calcium Ionized Calcium Phosphorus Magnesium Total Bilirubin Direct Bilirubin Indirect Bilirubin AST ALT Alkaline Phosphatase Creatine Kinase Serum Total Protein Albumin Globulin Albumin/Globulin Ratio Triglycerides Lipase Chlamy pneumoniae PCR Not Detected Adenovirus (PCR) Not Detected B. pertussis DNA (PCR) Not Detected Coronavirus OC43 (PCR) Not Detected Coronavirus HKU1 (PCR) Not Detected Coronavirus 229E (PCR) Not Detected Coronavirus NL63 (PCR) Not Detected Human Metapneumovirus Not Detected Influenza A (H1) PCR Not Detected Influ A (H1N1/09) PCR Not Detected Influenza A (H3) PCR Not Detected Influenza A Untype (PCR) Not Detected Influenza Type B (PCR) Not Detected M.pneumoniae DNA (PCR) Not Detected Parainfluenza 1 (PCR) Not Detected Parainfluenza 2 (PCR) Not Detected Parainfluenza 3 (PCR) Not Detected Parainfluenza 4 (PCR) Not Detected RSV (PCR) Not Detected Entero/Rhino (PCR) Not Detected 11/10/16 11/10/16 11/10/16 14:45 14:45 14:45 WBC 14.4 H RBC 4.85 Hgb 13.6 Hct 42.6 MCV 87.8 MCH 28.0 MCHC 31.9 RDW 16.1 H Plt Count 163 MPV 10.8 Immature Gran % 0.6 Seg Neutrophils % 86.1 Lymphocytes % 4.5 Monocytes % 8.6 Eosinophils % 0.1 Basophils % 0.1 Neutrophils # 12.4 H Lymphocytes # 0.7 Monocytes # 1.2 Eosinophils # 0.0 Basophils # 0.0 Nucleated RBCs/100 WBC 0.3 H ABG pH ABG pCO2 ABG pO2 ABG HCO3 ABG Total CO2 ABG O2 Saturation ABG Base Excess Blood Gas Modality Inspired O2 Sodium 135 L Potassium 4.5 Chloride 94 L Carbon Dioxide 28 BUN 69 H Creatinine 2.21 H Est GFR ( Amer) 27 L Est GFR (Non-Af Amer) 23 L BUN/Creatinine Ratio 31 H Glucose 114 H POC Glucose Calculated Osmolality 301 H Lactic Acid 0.9 Calcium 8.5 L Ionized Calcium Phosphorus Magnesium 2.0 Total Bilirubin 0.4 Direct Bilirubin Indirect Bilirubin AST 27 ALT 62 H Alkaline Phosphatase 66 Creatine Kinase Serum Total Protein 5.6 L Albumin 2.5 L Globulin 3.1 Albumin/Globulin Ratio 0.8 L Triglycerides Lipase Chlamy pneumoniae PCR Adenovirus (PCR) B. pertussis DNA (PCR) Coronavirus OC43 (PCR) Coronavirus HKU1 (PCR) Coronavirus 229E (PCR) Coronavirus NL63 (PCR) Human Metapneumovirus Influenza A (H1) PCR Influ A (H1N1/09) PCR Influenza A (H3) PCR Influenza A Untype (PCR) Influenza Type B (PCR) M.pneumoniae DNA (PCR) Parainfluenza 1 (PCR) Parainfluenza 2 (PCR) Parainfluenza 3 (PCR) Parainfluenza 4 (PCR) RSV (PCR) Entero/Rhino (PCR) 11/10/16 11/10/16 11/10/16 18:03 20:00 23:03 WBC RBC Hgb Hct MCV MCH MCHC RDW Plt Count MPV Immature Gran % Seg Neutrophils % Lymphocytes % Monocytes % Eosinophils % Basophils % Neutrophils # Lymphocytes # Monocytes # Eosinophils # Basophils # Nucleated RBCs/100 WBC ABG pH 7.39 ABG pCO2 60 H ABG pO2 58 L ABG HCO3 36.3 H ABG Total CO2 38.1 H ABG O2 Saturation 89 L ABG Base Excess 8.8 H Blood Gas Modality VC Inspired O2 60 Sodium Potassium Chloride Carbon Dioxide BUN Creatinine Est GFR ( Amer) Est GFR (Non-Af Amer) BUN/Creatinine Ratio Glucose POC Glucose 119 H 87 Calculated Osmolality Lactic Acid Calcium Ionized Calcium Phosphorus Magnesium Total Bilirubin Direct Bilirubin Indirect Bilirubin AST ALT Alkaline Phosphatase Creatine Kinase Serum Total Protein Albumin Globulin Albumin/Globulin Ratio Triglycerides Lipase Chlamy pneumoniae PCR Adenovirus (PCR) B. pertussis DNA (PCR) Coronavirus OC43 (PCR) Coronavirus HKU1 (PCR) Coronavirus 229E (PCR) Coronavirus NL63 (PCR) Human Metapneumovirus Influenza A (H1) PCR Influ A (H1N1/09) PCR Influenza A (H3) PCR Influenza A Untype (PCR) Influenza Type B (PCR) M.pneumoniae DNA (PCR) Parainfluenza 1 (PCR) Parainfluenza 2 (PCR) Parainfluenza 3 (PCR) Parainfluenza 4 (PCR) RSV (PCR) Entero/Rhino (PCR) 11/11/16 11/11/16 11/11/16 03:00 03:00 04:10 WBC 13.1 H RBC 4.73 Hgb 13.6 Hct 41.6 MCV 87.9 MCH 28.8 MCHC 32.7 RDW 16.1 H Plt Count 159 MPV 10.2 Immature Gran % 0.5 Seg Neutrophils % 85.1 Lymphocytes % 5.7 Monocytes % 8.3 Eosinophils % 0.3 Basophils % 0.1 Neutrophils # 11.2 H Lymphocytes # 0.8 Monocytes # 1.1 Eosinophils # 0.0 Basophils # 0.0 Nucleated RBCs/100 WBC 0.2 H ABG pH 7.36 ABG pCO2 65 H ABG pO2 57 L ABG HCO3 36.7 H ABG Total CO2 38.7 H ABG O2 Saturation 88 L ABG Base Excess 8.3 H Blood Gas Modality VC Inspired O2 65 Sodium 137 Potassium 4.2 Chloride 93 L Carbon Dioxide 31 H BUN 72 H Creatinine 2.28 H Est GFR ( Amer) 26 L Est GFR (Non-Af Amer) 22 L BUN/Creatinine Ratio 32 H Glucose 109 H POC Glucose Calculated Osmolality 306 H Lactic Acid Calcium 8.4 L Ionized Calcium 1.04 L Phosphorus 6.4 H Magnesium 1.9 Total Bilirubin 0.6 Direct Bilirubin 0.3 Indirect Bilirubin 0.3 AST 37 H ALT 57 H Alkaline Phosphatase 63 Creatine Kinase Serum Total Protein 5.5 L Albumin 2.5 L Globulin 3.0 Albumin/Globulin Ratio 0.8 L Triglycerides Lipase Chlamy pneumoniae PCR Adenovirus (PCR) B. pertussis DNA (PCR) Coronavirus OC43 (PCR) Coronavirus HKU1 (PCR) Coronavirus 229E (PCR) Coronavirus NL63 (PCR) Human Metapneumovirus Influenza A (H1) PCR Influ A (H1N1/09) PCR Influenza A (H3) PCR Influenza A Untype (PCR) Influenza Type B (PCR) M.pneumoniae DNA (PCR) Parainfluenza 1 (PCR) Parainfluenza 2 (PCR) Parainfluenza 3 (PCR) Parainfluenza 4 (PCR) RSV (PCR) Entero/Rhino (PCR) - Impressions Impressions Chest X-Ray 11/11/16 06:00 IMPRESSION: Stable chest. D/ / 11/11/2016 07:22:03 Sebastien Velázquez MD / earno Interpreting Provider: Sebastien Velázquez MD - ABG Interpretation ABG results: ABG ABG pH 7.36 pH Units (7.32-7.45) 11/11/16 04:10 ABG pCO2 65 mmHg (35-45) H 11/11/16 04:10 ABG pO2 57 mmHg (85-104) L 11/11/16 04:10 ABG O2 Saturation 88 % (95-98) L 11/11/16 04:10 PT/INR, D-dimer PT 13.9 Seconds (9.4-12.1) H 11/06/16 17:19 D-Dimer 3921 ng/mLFEU (0-500) H 11/06/16 17:19 Consult Discharge Plan - Plan Referrals: Kay Palmer [Primary Care Provider] -
[2016-11-11] MEDS: Budesonide/Formoterol 160/4.5 MDI IH SCH ×2 (07:56→19:58)
[2016-11-11] MEDS: Pantoprazole 40 MG VIAL IVP SCH (09:40)
[2016-11-11] MEDS: Chlorhexidine Rinse 15 ML MOUTHWASH MM SCH ×2 (09:40→19:46)
[2016-11-11] MEDS: Bisacodyl 10 MG RECTAL SUPPOSITORY RC SCH (09:41)
[2016-11-11] MEDS: Aspirin 81 MG TAB.CHEW GTUBE SCH (09:41)
[2016-11-11] MEDS: Lacri-Lube 3.5 GM TUBE BOTH EYES SCH ×2 (09:43→19:46)
[2016-11-11] MEDS: Nicotine 21 MG PATCH.TD24 TD SCH (09:45)
[2016-11-11 11:37] LABS: ABG Base Excess 9.4 mEq/L (-2.0 to 3.0); ABG HCO3 37.9 mEQ/L (21-27); ABG Oxygen Saturation 90 % (95-98); ABG PCO2 67 mmHg (35-45); ABG PH 7.36 pH Units (7.32-7.45); ABG PO2 60 mmHg (85-104)
[2016-11-11 11:39] LABS: Blood Gas FiO2 70 %; Blood Gas Respiration Rate 24
[2016-11-11 11:40] LABS: Blood Gas PEEP 14 cm H2O; Blood Gas VT 360 cc
[2016-11-11 15:15] LABS: Ionized Calcium 1.07 mmol/L (1.15-1.35)
[2016-11-11 15:18] LABS: Calcium 8.9 mg/dL (8.6-10.8); Magnesium 2.3 mg/dL (1.6-2.6); Phosphorous 6.9 mg/dL (2.3-4.7); Potassium 4.3 mEq/L (3.5-4.5)
[2016-11-11] MEDS: Azithromycin 500 MG in D5% in Water 250 ML IVPB SCH (17:40)
[2016-11-12] MEDS: *HR* Heparin 5,000 UNIT/ML VIAL SQ SCH ×3 (01:55→18:26)
[2016-11-12 03:07] LABS: Basophils % 0.1 %; Eosinophils # 0.1 K/mcL (0.0-0.6); Eosinophils % 0.7 %; Hematocrit 42.8 % (35.3-44.9); Hemoglobin 13.5 g/dL (11.5-15.4); Immature Granulocytes % 0.5 % (0-4); Lymphocytes # 0.5 K/mcL (0.6-4.6); Lymphocytes % 3.8 %; Mean Corpuscular HGB Conc 31.5 g/dL (31.6-35.5); Mean Corpuscular Hemoglobin 27.9 pg (28.0-33.3); Mean Corpuscular Volume 88.4 fL (83.0-100.0); Mean Platelet Volume 10.5 fL (9.4-12.4); Monocytes # 1.2 K/mcL (0.0-1.3); Monocytes % 9.1 %; Neutrophils # 11.5 K/mcL (1.6-8.9); Platelet Count 152 K/mcL (140-400); Red Blood Count 4.84 M/mcL (3.82-4.97); Segmented Neutrophils % 85.8 %
[2016-11-12 03:13] LABS: Ionized Calcium 1.08 mmol/L (1.15-1.35)
[2016-11-12 03:23] LABS: Albumin 2.4 g/dL (3.5-5.0); Albumin/Globulin Ratio 0.7 (1.1-2.2); Bilirubin,Direct 0.5 mg/dL (0.0-0.5); Bilirubin,Indirect 0.3 mg/dL (0.0-1.2); Bilirubin,Total 0.8 mg/dL (0.2-1.2); Globulin 3.5 g/dL (2.4-3.5); Magnesium 2.2 mg/dL (1.6-2.6); Phosphorous 6.2 mg/dL (2.3-4.7); Potassium 4.3 mEq/L (3.5-4.5); Total Protein 5.9 g/dL (6.0-8.3)
[2016-11-12] MEDS: Calcium Gluconate 1,000 MG in D5% in Water 100 ML IVPB PRN (03:40)
[2016-11-12] MEDS: Ipratropium/Albuterol Neb 3 ML IH SCH ×6 (03:50→23:33)
[2016-11-12] MEDS: Insulin LISPRO 300 UNITS/3 ML VIAL SQ SCH ×3 (04:05→18:27)
[2016-11-12 04:16] LABS: ABG Base Excess 12.7 mEq/L (-2.0 to 3.0); ABG HCO3 39.8 mEQ/L (21-27); ABG Oxygen Saturation 90 % (95-98); ABG PCO2 60 mmHg (35-45); ABG PH 7.43 pH Units (7.32-7.45); ABG PO2 58 mmHg (85-104); ABG TCO2 41.6 mEq/L (20-26)
[2016-11-12 04:18] LABS: Blood Gas FiO2 60 %
--- NOTE | 2016-11-12 06:35 | Pulmonology Progress Note ---
<Guero Blackwell - Last Filed: 11/12/16 06:59> Date of Encounter: 11/12/16 Time of Encounter: 06:33 Assessment and Plan (1) Acute respiratory failure with hypercapnia Current Visit: Yes Status: Acute And hypoxia. Stable but critical. Patient still requiring large amounts of FiO2 and PEEP but requirements are decreasing. At this point the etiology remains elusive. PE, COPD exacerbation, pneumonia, pulmonary edema are considerations PE appears less likely at this time, heparin drip stopped. Treating with antibiotics, steroids have stopped. We give continue lasix for diuresis as blood pressure allows to keep fluid balance negative. We will wean off sedation as tolerated. Paralytic has been stopped. Will turn away from one side and use chest percussion to help promote lung recruitment. (2) COPD (chronic obstructive pulmonary disease) Current Visit: Yes Status: Acute With possible exacerbation. We will treat with bronchodilators, antibiotics day 6 of 7, steriods have been stopped while on paralytic. We will continue to monitor. Qualifiers: COPD type: unspecified COPD Qualified Code(s): J44.9 - Chronic obstructive pulmonary disease, unspecified (3) Breast cancer Current Visit: No Status: Acute Stage I. Currently receiving radiation therapy. Qualifiers: Breast location: upper outer quadrant of breast Patient gender: female Laterality: right Qualified Code(s): C50.411 - Malignant neoplasm of upper- outer quadrant of right female breast (4) Hypertension Current Visit: Yes Status: Acute Patient was hypertensive on presentation however blood pressure has normalized and is running low. This morning MAPs are around 70. Will hold home blood pressure medications. Patient has not required pressor therapy. Qualifiers: Hypertension type: essential hypertension Qualified Code(s): I10 - Essential (primary) hypertension (5) DVT prophylaxis Current Visit: Yes Status: Acute Patient was on therapeutic heparin drip, which was stopped yesterday. It. Currently on heparin 5000 units subcutaneous every 8. (6) Goals of care, counseling/discussion Current Visit: Yes Status: Acute Patient is DNR CCA. Palliative is following and we appreciate their assistance. The brought paperwork that designated him medical power of assistant county attorney. We will continue with aggressive measures at this time however the states that the patient would not wish long-term life-sustaining measures including tracheostomy and PEG tube placement. Patient was able to wake up enough 2 days ago to respond to questions and she was able to indicate that she wanted to continue with aggressive treatment at this time. We will continually reassess goals of care. Subjective Principal diagnosis: Respiratory failure Interval history: Patient seen and examined at bedside. Patient remains intubated and sedated. She is awake and alert, will answer questions appropriately. She denies that she is in any pain. Objective PUL Vital signs: Last Vital Signs Temp 100.0 F H 11/12/16 04:33 Pulse 114 11/12/16 05:56 Resp 24 11/12/16 05:56 BP 100/57 11/12/16 05:56 Pulse Ox 90 L 11/12/16 05:56 General appearance: no acute distress Effort: normal Auscultation: bilateral: diminished breath sounds Cardiovascular: other (regular rhythm, tachycardia) Gastrointestinal: hypoactive bowel sounds, soft, non-tender, non-distended Extremities: no cyanosis, no clubbing, edema (trace) unable to assess due to mental status Ventilator Settings Ventilator Settings: Ventilator Settings, Last 8 Hours Ventilator Mode VC+ Ventilator Mode VC+ Ventilator Mode VC+ Ventilator Mode VC+ Ventilator Mode VC+ Ventilator Mode VC+ Ventilator Mode VC+ Ventilator Mode VC+ Ventilator Mode VC+ Ventilator Mode VC+ Ventilator Mode VC+ Ventilator Tidal Volume 360 Setting Ventilator Tidal Volume 360 Setting Ventilator Tidal Volume 360 Setting Ventilator Tidal Volume 360 Setting Ventilator Tidal Volume 360 Setting Ventilator Tidal Volume 360 Setting Ventilator Tidal Volume 360 Setting Ventilator Tidal Volume 360 Setting Ventilator Tidal Volume 360 Setting Ventilator Tidal Volume 360 Setting Ventilator Tidal Volume 360 Setting Ventilator Respiratory Rate 24 Setting Ventilator Respiratory Rate 24 Setting Ventilator Respiratory Rate 24 Setting Ventilator Respiratory Rate 24 Setting Ventilator Respiratory Rate 24 Setting Ventilator Respiratory Rate 24 Setting Ventilator Respiratory Rate 24 Setting Ventilator Respiratory Rate 24 Setting Ventilator Respiratory Rate 24 Setting Ventilator Respiratory Rate 24 Setting Ventilator Respiratory Rate 24 Setting Actual Respiratory Rate 24 Actual Respiratory Rate 24 Actual Respiratory Rate 24 Actual Respiratory Rate 24 Actual Respiratory Rate 24 Actual Respiratory Rate 24 Actual Respiratory Rate 24 Actual Respiratory Rate 24 Positive End Expiratory 14 Pressure Positive End Expiratory 14 Pressure Positive End Expiratory 14 Pressure Positive End Expiratory 14 Pressure Positive End Expiratory 14 Pressure Positive End Expiratory 14 Pressure Positive End Expiratory 14 Pressure Positive End Expiratory 14 Pressure Positive End Expiratory 14 Pressure Positive End Expiratory 14 Pressure Positive End Expiratory 14 Pressure Peak Inspiratory Airway 31 Pressure Peak Inspiratory Airway 31 Pressure Peak Inspiratory Airway 28 Pressure Peak Inspiratory Airway 28 Pressure Peak Inspiratory Airway 28 Pressure Peak Inspiratory Airway 28 Pressure Peak Inspiratory Airway 29 Pressure Peak Inspiratory Airway 29 Pressure Results - Laboratory Findings CBC and BMP: 11/12/16 03:00 11/12/16 03:00 ABG ABG pH 7.43 pH Units (7.32-7.45) 11/12/16 04:07 ABG pCO2 60 mmHg (35-45) H 11/12/16 04:07 ABG pO2 58 mmHg (85-104) L 11/12/16 04:07 ABG O2 Saturation 90 % (95-98) L 11/12/16 04:07 PT/INR, D-dimer PT 13.9 Seconds (9.4-12.1) H 11/06/16 17:19 D-Dimer 3921 ng/mLFEU (0-500) H 11/06/16 17:19 Abnormal lab findings: Abnormal lab results WBC 13.4 K/mcL (4.3-11.1) H 11/12/16 03:00 MCH 27.9 pg (28.0-33.3) L 11/12/16 03:00 MCHC 31.5 g/dL (31.6-35.5) L 11/12/16 03:00 RDW 16.0 % (11.5-14.5) H 11/12/16 03:00 Neutrophils # 11.5 K/mcL (1.6-8.9) H 11/12/16 03:00 Lymphocytes # 0.5 K/mcL (0.6-4.6) L 11/12/16 03:00 Nucleated RBCs/100 WBC 0.2 /100 WBC (0) H 11/11/16 03:00 Immature Plt Fraction 6.9 % (1.1-6.1) H 11/06/16 17:19 PT 13.9 Seconds (9.4-12.1) H 11/06/16 17:19 APTT 72.0 Seconds (26.0-36.0) H 11/10/16 02:00 D-Dimer 3921 ng/mLFEU (0-500) H 11/06/16 17:19 ABG pCO2 60 mmHg (35-45) H 11/12/16 04:07 ABG pO2 58 mmHg (85-104) L 11/12/16 04:07 ABG HCO3 39.8 mEQ/L (21-27) H 11/12/16 04:07 ABG Total CO2 41.6 mEq/L (20-26) H 11/12/16 04:07 ABG O2 Saturation 90 % (95-98) L 11/12/16 04:07 ABG Base Excess 12.7 mEq/L (-2.0 to 3.0) H 11/12/16 04:07 Chloride 95 mEq/L (98-109) L 11/12/16 03:00 Carbon Dioxide 32 mEq/L (19-29) H 11/12/16 03:00 BUN 77 mg/dL (7-20) H 11/12/16 03:00 Creatinine 2.16 mg/dL (0.57-1.11) H 11/12/16 03:00 Est GFR ( Amer) 28 (> 60) L 11/12/16 03:00 Est GFR (Non-Af Amer) 23 (> 60) L 11/12/16 03:00 BUN/Creatinine Ratio 36 (6-26) H 11/12/16 03:00 POC Glucose 105 (58-89) H 11/11/16 23:32 Calculated Osmolality 315 (280-300) H 11/12/16 03:00 Ionized Calcium 1.08 mmol/L (1.15-1.35) L 11/12/16 03:00 Phosphorus 6.2 mg/dL (2.3-4.7) H 11/12/16 03:00 AST 54 Units/L (5-34) H 11/12/16 03:00 Creatine Kinase 253 Units/L (29-168) H 11/10/16 07:25 Troponin I 0.50 ng/mL (0-0.03) H* 11/07/16 05:33 B-Natriuretic Peptide 2717 pg/mL (0-100) H 11/06/16 17:19 Serum Total Protein 5.9 g/dL (6.0-8.3) L 11/12/16 03:00 Albumin 2.4 g/dL (3.5-5.0) L 11/12/16 03:00 Albumin/Globulin Ratio 0.7 (1.1-2.2) L 11/12/16 03:00 Triglycerides 153 mg/dL (< 150) H 11/10/16 07:25 Lipase 132 Units/L (8-78) H 11/10/16 07:25 - Clinical Findings Intake & Output: Intake & Output 11/11/16 11/11/16 11/12/16 15:59 23:59 07:59 Intake Total 140 / 140 770 / 770 210 / 210 Output Total 600 / 600 1550 / 1550 400 / 400 Balance -460 / -460 -780 / -780 -190 / -190 Weight 131.814 kg Consult Discharge Plan - Plan Referrals: Kay Palmer [Primary Care Provider] - <Sai Mcconnell - Last Filed: 11/12/16 10:03> Date of Encounter: 11/12/16 Objective PUL Vital signs: Last Vital Signs Temp 98.9 F 11/12/16 07:57 Pulse 113 11/12/16 07:30 Resp 24 11/12/16 07:30 BP 114/68 11/12/16 07:30 Pulse Ox 88 L 11/12/16 07:30 Ventilator Settings Ventilator Settings: Ventilator Settings, Last 8 Hours Ventilator Mode VC+ Ventilator Mode VC+ Ventilator Mode VC+ Ventilator Mode VC+ Ventilator Mode VC+ Ventilator Mode VC+ Ventilator Mode VC+ Ventilator Mode VC+ Ventilator Mode VC+ Ventilator Mode VC+ Ventilator Tidal Volume 360 Setting Ventilator Tidal Volume 360 Setting Ventilator Tidal Volume 360 Setting Ventilator Tidal Volume 360 Setting Ventilator Tidal Volume 360 Setting Ventilator Tidal Volume 360 Setting Ventilator Tidal Volume 360 Setting Ventilator Tidal Volume 360 Setting Ventilator Tidal Volume 360 Setting Ventilator Tidal Volume 360 Setting Ventilator Respiratory Rate 24 Setting Ventilator Respiratory Rate 24 Setting Ventilator Respiratory Rate 24 Setting Ventilator Respiratory Rate 24 Setting Ventilator Respiratory Rate 24 Setting Ventilator Respiratory Rate 24 Setting Ventilator Respiratory Rate 24 Setting Ventilator Respiratory Rate 24 Setting Ventilator Respiratory Rate 24 Setting Ventilator Respiratory Rate 24 Setting Actual Respiratory Rate 24 Actual Respiratory Rate 24 Actual Respiratory Rate 24 Actual Respiratory Rate 24 Actual Respiratory Rate 24 Actual Respiratory Rate 24 Actual Respiratory Rate 24 Positive End Expiratory 14 Pressure Positive End Expiratory 14 Pressure Positive End Expiratory 14 Pressure Positive End Expiratory 14 Pressure Positive End Expiratory 14 Pressure Positive End Expiratory 14 Pressure Positive End Expiratory 14 Pressure Positive End Expiratory 14 Pressure Positive End Expiratory 14 Pressure Positive End Expiratory 14 Pressure Peak Inspiratory Airway 25 Pressure Peak Inspiratory Airway 31 Pressure Peak Inspiratory Airway 31 Pressure Peak Inspiratory Airway 28 Pressure Peak Inspiratory Airway 28 Pressure Peak Inspiratory Airway 28 Pressure Peak Inspiratory Airway 28 Pressure Results - Laboratory Findings CBC and BMP: 11/12/16 03:00 11/12/16 03:00 ABG ABG pH 7.43 pH Units (7.32-7.45) 11/12/16 04:07 ABG pCO2 60 mmHg (35-45) H 11/12/16 04:07 ABG pO2 58 mmHg (85-104) L 11/12/16 04:07 ABG O2 Saturation 90 % (95-98) L 11/12/16 04:07 PT/INR, D-dimer PT 13.9 Seconds (9.4-12.1) H 11/06/16 17:19 D-Dimer 3921 ng/mLFEU (0-500) H 11/06/16 17:19 Abnormal lab findings: Abnormal lab results WBC 13.4 K/mcL (4.3-11.1) H 11/12/16 03:00 MCH 27.9 pg (28.0-33.3) L 11/12/16 03:00 MCHC 31.5 g/dL (31.6-35.5) L 11/12/16 03:00 RDW 16.0 % (11.5-14.5) H 11/12/16 03:00 Neutrophils # 11.5 K/mcL (1.6-8.9) H 11/12/16 03:00 Lymphocytes # 0.5 K/mcL (0.6-4.6) L 11/12/16 03:00 Nucleated RBCs/100 WBC 0.2 /100 WBC (0) H 11/11/16 03:00 Immature Plt Fraction 6.9 % (1.1-6.1) H 11/06/16 17:19 PT 13.9 Seconds (9.4-12.1) H 11/06/16 17:19 APTT 72.0 Seconds (26.0-36.0) H 11/10/16 02:00 D-Dimer 3921 ng/mLFEU (0-500) H 11/06/16 17:19 ABG pCO2 60 mmHg (35-45) H 11/12/16 04:07 ABG pO2 58 mmHg (85-104) L 11/12/16 04:07 ABG HCO3 39.8 mEQ/L (21-27) H 11/12/16 04:07 ABG Total CO2 41.6 mEq/L (20-26) H 11/12/16 04:07 ABG O2 Saturation 90 % (95-98) L 11/12/16 04:07 ABG Base Excess 12.7 mEq/L (-2.0 to 3.0) H 11/12/16 04:07 Chloride 95 mEq/L (98-109) L 11/12/16 03:00 Carbon Dioxide 32 mEq/L (19-29) H 11/12/16 03:00 BUN 77 mg/dL (7-20) H 11/12/16 03:00 Creatinine 2.16 mg/dL (0.57-1.11) H 11/12/16 03:00 Est GFR ( Amer) 28 (> 60) L 11/12/16 03:00 Est GFR (Non-Af Amer) 23 (> 60) L 11/12/16 03:00 BUN/Creatinine Ratio 36 (6-26) H 11/12/16 03:00 POC Glucose 105 (58-89) H 11/11/16 23:32 Calculated Osmolality 315 (280-300) H 11/12/16 03:00 Ionized Calcium 1.08 mmol/L (1.15-1.35) L 11/12/16 03:00 Phosphorus 6.2 mg/dL (2.3-4.7) H 11/12/16 03:00 AST 54 Units/L (5-34) H 11/12/16 03:00 Creatine Kinase 253 Units/L (29-168) H 11/10/16 07:25 Troponin I 0.50 ng/mL (0-0.03) H* 11/07/16 05:33 B-Natriuretic Peptide 2717 pg/mL (0-100) H 11/06/16 17:19 Serum Total Protein 5.9 g/dL (6.0-8.3) L 11/12/16 03:00 Albumin 2.4 g/dL (3.5-5.0) L 11/12/16 03:00 Albumin/Globulin Ratio 0.7 (1.1-2.2) L 11/12/16 03:00 Triglycerides 153 mg/dL (< 150) H 11/10/16 07:25 Lipase 132 Units/L (8-78) H 11/10/16 07:25 - Clinical Findings Intake & Output: Intake & Output 11/11/16 11/12/16 11/12/16 23:59 07:59 15:59 Intake Total 770 / 770 210 / 210 Output Total 1550 / 1550 700 / 700 Balance -780 / -780 -490 / -490 Weight 131.814 kg - Attending Attestation I examined this patient and my medical decision-making was reviewed with the QUILLER OPERATOR/PA/Advanced Practice Nurse/Resident Physician. I agree with the documented findings, disposition and treatment plan as described except to the extent set forth below. I spent 45min of Critical Care time with this patient. It involved decision making of high complexity to assess, manipulate, and support vital organ system failure and/or to prevent further life threatening deterioration of the patient' s condition. The time involved in the performance of separately reportable procedures was not counted toward critical care time. Patient seen and examined at bedside Labs, radiology, chart personally reviewed. All lines examined without evidence of infection. Neuro: Intubated and sedated. goal RASS -(2). Does have spontaneous eye opening and movement of all ext's. Pulm: Severe Hypoxic respiratory failure ?PNA with ARDS in setting of advanced COPD. was on [id number]% complicated by drop after SVT now back on 10% Fio2 and 14 Peep sedate and wean for goal Pao2>55 per low PEEP/FIO2 ladder Cards: transent hypotension with Afib with RVR, loaded with amiodarone (likely hypoxia mediated); HFpEF diuresis. goal 1L today as tolerated by BP FEN-GI: PPI prophylaxis cont Bowel regimen Enteral feedings ileus resolving ( large BM overnight) Renal: PRICE multifactorial. Creatinine stable overnight but good UOP. cont to Trial diuretic with BID RFPs ID: CAP cont ABx day 6/7 cultures negative thus far. Heme/Onc: H/H stable DVT prophylaxis with subQ heparin Endo: SSi and monitor glucose Integ: skin care per ICU protocol CODE: DNRCCA - Prognosis remains poor. Family updated at bedside.
[2016-11-12] MEDS: Dexmedetomidine HCl 400 MCG/100 ML MLS IVC SCH ×4 (07:40→21:10)
[2016-11-12] MEDS: Budesonide/Formoterol 160/4.5 MDI IH SCH ×2 (07:51→19:57)
[2016-11-12] MEDS: Bisacodyl 10 MG RECTAL SUPPOSITORY RC SCH (09:11)
[2016-11-12] MEDS: MethylPREDNISolone 40 MG/ML VIAL IVP SCH ×3 (09:24→21:10)
[2016-11-12] MEDS: Aspirin 81 MG TAB.CHEW GTUBE SCH (09:25)
[2016-11-12] MEDS: Pantoprazole 40 MG VIAL IVP SCH (09:25)
[2016-11-12] MEDS: Chlorhexidine Rinse 15 ML MOUTHWASH MM SCH ×2 (09:25→21:10)
[2016-11-12] MEDS: Lacri-Lube 3.5 GM TUBE BOTH EYES SCH ×2 (09:25→21:10)
[2016-11-12] MEDS: Nicotine 21 MG PATCH.TD24 TD SCH (09:25)
--- NOTE | 2016-11-12 09:27 | Palliative Progress Note ---
Date of Encounter: 11/12/16 Time of Encounter: 09:15 - Assessment and plan (1) Pain Current Visit: Yes Status: Acute Assessment and plan: Well-controlled on fentanyl drip No changes today. Continue current medications today 11/11/2016 no changes 11/12 (2) Dyspnea Current Visit: Yes Status: Acute Assessment and plan: She is now off paralysis. Patient does however have an increasing FiO2 requirement now up to 70% and PEEP is up to 12. Oxygen saturations running in the 85-86% range. still having alot of problem coming off vent cont present plan Qualifiers: Dyspnea type: shortness of breath Qualified Code(s): R06.02 - Shortness of breath (3) Acute exacerbation of chronic obstructive pulmonary disease (COPD) Current Visit: Yes Status: Acute Assessment and plan: still on vent plan per pulmonary team. no changes 11/12 (4) Acute respiratory failure with hypercapnia Current Visit: Yes Status: Acute Assessment and plan: cont current meds and treatment plan no changes 11/12 (5) Breast cancer Current Visit: No Status: Acute Assessment and plan: History turn to cancer Center for continued care of the patient if she is pulled through this. no changes 11/12 Dr Mckenna is aware Qualifiers: Breast location: upper outer quadrant of breast Patient gender: female Laterality: right Qualified Code(s): C50.411 - Malignant neoplasm of upper- outer quadrant of right female breast (6) Goals of care, counseling/discussion Current Visit: Yes Status: Acute Assessment and plan: DNRCCA, patient is already intubated area all plan is to do aggressive therapy to try to get her off the ventilator. unalbe to reach hsuband yesterday He is due in this afternoon will plan to meet then - Time Spent With Patient Total time spent is greater than 50% in coordination of care (as documented) at patient's floor/unit and/or counseling patient: - Subjective Interval history: Intubated on ventilator she is still requiring increased po2 and inc peep - Constitutional Vitals: Abnormal lab results WBC 13.4 K/mcL (4.3-11.1) H 11/12/16 03:00 MCH 27.9 pg (28.0-33.3) L 11/12/16 03:00 MCHC 31.5 g/dL (31.6-35.5) L 11/12/16 03:00 RDW 16.0 % (11.5-14.5) H 11/12/16 03:00 Neutrophils # 11.5 K/mcL (1.6-8.9) H 11/12/16 03:00 Lymphocytes # 0.5 K/mcL (0.6-4.6) L 11/12/16 03:00 Nucleated RBCs/100 WBC 0.2 /100 WBC (0) H 11/11/16 03:00 Immature Plt Fraction 6.9 % (1.1-6.1) H 11/06/16 17:19 PT 13.9 Seconds (9.4-12.1) H 11/06/16 17:19 APTT 72.0 Seconds (26.0-36.0) H 11/10/16 02:00 D-Dimer 3921 ng/mLFEU (0-500) H 11/06/16 17:19 ABG pCO2 60 mmHg (35-45) H 11/12/16 04:07 ABG pO2 58 mmHg (85-104) L 11/12/16 04:07 ABG HCO3 39.8 mEQ/L (21-27) H 11/12/16 04:07 ABG Total CO2 41.6 mEq/L (20-26) H 11/12/16 04:07 ABG O2 Saturation 90 % (95-98) L 11/12/16 04:07 ABG Base Excess 12.7 mEq/L (-2.0 to 3.0) H 11/12/16 04:07 Chloride 95 mEq/L (98-109) L 11/12/16 03:00 Carbon Dioxide 32 mEq/L (19-29) H 11/12/16 03:00 BUN 77 mg/dL (7-20) H 11/12/16 03:00 Creatinine 2.16 mg/dL (0.57-1.11) H 11/12/16 03:00 Est GFR ( Amer) 28 (> 60) L 11/12/16 03:00 Est GFR (Non-Af Amer) 23 (> 60) L 11/12/16 03:00 BUN/Creatinine Ratio 36 (6-26) H 11/12/16 03:00 POC Glucose 105 (58-89) H 11/11/16 23:32 Calculated Osmolality 315 (280-300) H 11/12/16 03:00 Ionized Calcium 1.08 mmol/L (1.15-1.35) L 11/12/16 03:00 Phosphorus 6.2 mg/dL (2.3-4.7) H 11/12/16 03:00 AST 54 Units/L (5-34) H 11/12/16 03:00 Creatine Kinase 253 Units/L (29-168) H 11/10/16 07:25 Troponin I 0.50 ng/mL (0-0.03) H* 11/07/16 05:33 B-Natriuretic Peptide 2717 pg/mL (0-100) H 11/06/16 17:19 Serum Total Protein 5.9 g/dL (6.0-8.3) L 11/12/16 03:00 Albumin 2.4 g/dL (3.5-5.0) L 11/12/16 03:00 Albumin/Globulin Ratio 0.7 (1.1-2.2) L 11/12/16 03:00 Triglycerides 153 mg/dL (< 150) H 11/10/16 07:25 Lipase 132 Units/L (8-78) H 11/10/16 07:25 General appearance: Present: no acute distress - Head Head exam: Present: atraumatic, normal inspection - Eye Eye exam: Present: normal appearance, PERRL - ENT ENT exam: Present: mucous membranes moist (intubated on vent and sedated) - Neck Neck exam: Present: normal inspection - Respiratory Respiratory exam: Present: decreased breath sounds, rhonchi - Cardiovascular Cardiovascular exam: Present: irregular rhythm (has had bouts of a fib during the night) - GI/Abdominal GI/Abdominal exam: Present: hypoactive bowel sounds, soft. Absent: tenderness - Extremities Exam Extremities exam: Present: normal inspection, pedal edema. Absent: tenderness - Neurological Exam Neurological exam: Present: altered (intubated on vent and sedated) - Psychiatric Psychiatric exam: Absent: agitated, anxious - Skin Skin exam: Present: dry, warm Palliative Quality Palliative Quality: Screen for Code Status: Yes (Further screening awaiting family.), Screen for Goals of Care: Yes (Further screening awaiting family.), Screen for Pain: Yes, If Pain Regimen Started, Initiate Bowel Regimen: NA, Screen for Nausea/Vomitting: Yes Code Status: 11/07/16 04:31 CODE [Resuscitation Status: Active] [RES] Routine Comment: Resuscitation Status: Full Code CODE [Resuscitation Status: Active] [RES] Routine Comment: Resuscitation Status: DNR-Comfort Care-Arrest - Labs CBC & Chem 7: 11/12/16 03:00 11/12/16 03:00 Labs: Laboratory Results - last 24 hr 11/11/16 11/11/16 11/11/16 11:26 11:27 14:55 WBC RBC Hgb Hct MCV MCH MCHC RDW Plt Count MPV Immature Gran % Seg Neutrophils % Lymphocytes % Monocytes % Eosinophils % Basophils % Neutrophils # Lymphocytes # Monocytes # Eosinophils # Basophils # ABG pH 7.36 ABG pCO2 67 H ABG pO2 60 L ABG HCO3 37.9 H ABG Total CO2 40.0 H ABG O2 Saturation 90 L ABG Base Excess 9.4 H Respiration Rate 24 Blood Gas Modality VC Inspired O2 70 Tidal Volume 360 PEEP 14 Sodium 136 Potassium 4.3 Chloride 93 L Carbon Dioxide 31 H BUN 76 H Creatinine 2.29 H Est GFR ( Amer) 26 L Est GFR (Non-Af Amer) 22 L BUN/Creatinine Ratio 33 H Glucose 92 POC Glucose 106 H Calculated Osmolality 304 H Calcium 8.9 Ionized Calcium 1.07 L Phosphorus 6.9 H Magnesium 2.3 Total Bilirubin Direct Bilirubin Indirect Bilirubin AST ALT Alkaline Phosphatase Serum Total Protein Albumin Globulin Albumin/Globulin Ratio 11/11/16 11/11/16 11/12/16 18:18 23:32 03:00 WBC 13.4 H RBC 4.84 Hgb 13.5 Hct 42.8 MCV 88.4 MCH 27.9 L MCHC 31.5 L RDW 16.0 H Plt Count 152 MPV 10.5 Immature Gran % 0.5 Seg Neutrophils % 85.8 Lymphocytes % 3.8 Monocytes % 9.1 Eosinophils % 0.7 Basophils % 0.1 Neutrophils # 11.5 H Lymphocytes # 0.5 L Monocytes # 1.2 Eosinophils # 0.1 Basophils # 0.0 ABG pH ABG pCO2 ABG pO2 ABG HCO3 ABG Total CO2 ABG O2 Saturation ABG Base Excess Respiration Rate Blood Gas Modality Inspired O2 Tidal Volume PEEP Sodium Potassium Chloride Carbon Dioxide BUN Creatinine Est GFR ( Amer) Est GFR (Non-Af Amer) BUN/Creatinine Ratio Glucose POC Glucose 128 H 105 H Calculated Osmolality Calcium Ionized Calcium Phosphorus Magnesium Total Bilirubin Direct Bilirubin Indirect Bilirubin AST ALT Alkaline Phosphatase Serum Total Protein Albumin Globulin Albumin/Globulin Ratio 11/12/16 11/12/16 03:00 04:07 WBC RBC Hgb Hct MCV MCH MCHC RDW Plt Count MPV Immature Gran % Seg Neutrophils % Lymphocytes % Monocytes % Eosinophils % Basophils % Neutrophils # Lymphocytes # Monocytes # Eosinophils # Basophils # ABG pH 7.43 ABG pCO2 60 H ABG pO2 58 L ABG HCO3 39.8 H ABG Total CO2 41.6 H ABG O2 Saturation 90 L ABG Base Excess 12.7 H Respiration Rate Blood Gas Modality VC+ Inspired O2 60 Tidal Volume PEEP Sodium 141 Potassium 4.3 Chloride 95 L Carbon Dioxide 32 H BUN 77 H Creatinine 2.16 H Est GFR ( Amer) 28 L Est GFR (Non-Af Amer) 23 L BUN/Creatinine Ratio 36 H Glucose 98 POC Glucose Calculated Osmolality 315 H Calcium 9.0 Ionized Calcium 1.08 L Phosphorus 6.2 H Magnesium 2.2 Total Bilirubin 0.8 Direct Bilirubin 0.5 Indirect Bilirubin 0.3 AST 54 H ALT 51 Alkaline Phosphatase 63 Serum Total Protein 5.9 L Albumin 2.4 L Globulin 3.5 Albumin/Globulin Ratio 0.7 L - Impressions Impressions Chest X-Ray 11/10/16 00:01 IMPRESSION: Stable appearance of the chest. Bilateral pulmonary opacities and a left pleural effusion. D/ / 11/10/2016 07:38:00 Ela Aleman [place] [facility] [place] Provider: Ela Aleman MD Chest X-Ray 11/11/16 06:00 IMPRESSION: Stable chest. D/ / 11/11/2016 07:22:03 Sebastien Velázquez MD / [facility] Interpreting Provider: Sebastien Velázquez MD Chest X-Ray 11/12/16 06:00 IMPRESSION: Persistent left basilar atelectasis with a probable small left pleural effusion. D/ : / 11/12/2016 07:41:16 Lucius Castanon MD / [place] Interpreting Provider: Lucius Castanon MD X-Ray 11/12/16 06:00 IMPRESSION: No acute process of the abdomen. Specifically no radiographic findings to support the diagnosis of constipation. D/ / 11/12/2016 07:38:11 Lucius Castanon MD / [facility] Interpreting Provider: Lucius Castanon MD - ABG Interpretation ABG results: ABG ABG pH 7.43 pH Units (7.32-7.45) 11/12/16 04:07 ABG pCO2 60 mmHg (35-45) H 11/12/16 04:07 ABG pO2 58 mmHg (85-104) L 11/12/16 04:07 ABG O2 Saturation 90 % (95-98) L 11/12/16 04:07 PT/INR, D-dimer PT 13.9 Seconds (9.4-12.1) H 11/06/16 17:19 D-Dimer 3921 ng/mLFEU (0-500) H 11/06/16 17:19 Consult Discharge Plan - Plan Referrals: Kay Palmer [Primary Care Provider] -
[2016-11-12] MEDS ORDERED: 0.9 % Sodium Chloride 1,000 ML ONE (09:36)
[2016-11-12] MEDS ORDERED: *HR* FentaNYL (PF) 100 MCG/2 ML VIAL ONE (09:39)
[2016-11-12] MEDS ORDERED: Amiodarone Premix 150 MG/100 ML BAG IVPB ONE (09:45)
[2016-11-12] MEDS ORDERED: Amiodarone Premix 360 MG/200 ML BAG IVC ONE (09:45)
[2016-11-12] MEDS: Amiodarone Premix 360 MG/200 ML BAG IVC SCH (15:58)
[2016-11-12 16:33] LABS: ABG Base Excess 8.2 mEq/L (-2.0 to 3.0); ABG HCO3 34.7 mEQ/L (21-27); ABG Oxygen Saturation 91 % (95-98); ABG PCO2 56 mmHg (35-45); ABG PO2 60 mmHg (85-104); ABG TCO2 36.4 mEq/L (20-26); Blood Gas VT 360 cc
[2016-11-12] MEDS: Azithromycin 500 MG in D5% in Water 250 ML IVPB SCH (18:25)
[2016-11-13] MEDS: Amiodarone Premix 360 MG/200 ML BAG IVC SCH ×2 (00:21→12:28)
[2016-11-13] MEDS: Insulin LISPRO 300 UNITS/3 ML VIAL SQ SCH ×4 (00:22→18:08)
[2016-11-13] MEDS: MethylPREDNISolone 40 MG/ML VIAL IVP SCH ×4 (02:24→20:43)
[2016-11-13] MEDS: Dexmedetomidine HCl 400 MCG/100 ML MLS IVC SCH ×6 (02:24→22:09)
[2016-11-13] MEDS: *HR* Heparin 5,000 UNIT/ML VIAL SQ SCH ×3 (02:24→16:58)
[2016-11-13] MEDS: Ipratropium/Albuterol Neb 3 ML IH SCH ×6 (03:53→22:49)
[2016-11-13 04:37] LABS: Basophils % 0.1 %; Hematocrit 44.2 % (35.3-44.9); Hemoglobin 14.4 g/dL (11.5-15.4); Immature Granulocytes % 0.5 % (0-4); Lymphocytes # 0.1 K/mcL (0.6-4.6); Lymphocytes % 1.5 %; Mean Corpuscular HGB Conc 32.6 g/dL (31.6-35.5); Mean Corpuscular Hemoglobin 28.4 pg (28.0-33.3); Mean Corpuscular Volume 87.2 fL (83.0-100.0); Mean Platelet Volume 11.9 fL (9.4-12.4); Monocytes # 0.2 K/mcL (0.0-1.3); Monocytes % 2.8 %; Neutrophils # 8.3 K/mcL (1.6-8.9); Platelet Count 180 K/mcL (140-400); Red Blood Count 5.07 M/mcL (3.82-4.97); Red Cell Distribution Width 15.8 % (11.5-14.5); Segmented Neutrophils % 95.1 %
[2016-11-13 04:45] LABS: Ionized Calcium 1.13 mmol/L (1.15-1.35)
[2016-11-13 04:56] LABS: Albumin 2.4 g/dL (3.5-5.0); Albumin/Globulin Ratio 0.6 (1.1-2.2); Bilirubin,Direct 0.3 mg/dL (0.0-0.5); Bilirubin,Indirect 0.1 mg/dL (0.0-1.2); Bilirubin,Total 0.4 mg/dL (0.2-1.2); Calcium 9.6 mg/dL (8.6-10.8); Globulin 4.2 g/dL (2.4-3.5); Magnesium 2.4 mg/dL (1.6-2.6); Phosphorous 4.9 mg/dL (2.3-4.7); Potassium 4.3 mEq/L (3.5-4.5); Total Protein 6.6 g/dL (6.0-8.3)
[2016-11-13 06:45] LABS: Platelet Estimate Normal (Normal); Toxic Granulation Present (Not Present)
--- NOTE | 2016-11-13 07:09 | Pulmonology Progress Note ---
<Guero Blackwell - Last Filed: 11/13/16 07:07> Date of Encounter: 11/13/16 Time of Encounter: 07:07 Assessment and Plan (1) Acute respiratory failure with hypercapnia Current Visit: Yes Status: Acute And hypoxia. Stable but critical. Patient still requiring large amounts of FiO2 and PEEP but requirements are decreasing. At this point the etiology remains elusive. PE, COPD exacerbation, pneumonia, pulmonary edema are considerations PE appears less likely at this time, heparin drip stopped. Treating with antibiotics, steroids have stopped. We give continue lasix for diuresis as blood pressure allows to keep fluid balance negative. We will wean off sedation as tolerated. Paralytic has been stopped. Will turn away from one side and use chest percussion to help promote lung recruitment. (2) COPD (chronic obstructive pulmonary disease) Current Visit: Yes Status: Acute With possible exacerbation. We will treat with bronchodilators, antibiotics with Rocephin and Zithromax day 7 of 7, steriods have been stopped while on paralytic. We will continue to monitor. Qualifiers: COPD type: unspecified COPD Qualified Code(s): J44.9 - Chronic obstructive pulmonary disease, unspecified (3) Breast cancer Current Visit: No Status: Acute Stage I. Currently receiving radiation therapy. Qualifiers: Breast location: upper outer quadrant of breast Patient gender: female Laterality: right Qualified Code(s): C50.411 - Malignant neoplasm of upper- outer quadrant of right female breast (4) Hypertension Current Visit: Yes Status: Acute Patient was hypertensive on presentation however blood pressure has normalized and is running low. MAPs remained stable. Will hold home blood pressure medications. Patient has not required pressor therapy. Qualifiers: Hypertension type: essential hypertension Qualified Code(s): I10 - Essential (primary) hypertension (5) Atrial fibrillation Current Visit: Yes Status: Acute Patient had several episodes of atrial fibrillation with rapid ventricular response yesterday. Likely due to hypoxia. Patient converted spontaneously. Amiodarone restarted. Patient did not require cardioversion. Her blood pressure did drop occasionally however she was never unstable. Patient is normal sinus rhythm at this time, has remained in normal sinus rhythm last night. Troponins were slightly elevated but decreasing, likely due to demand ischemia in the setting of A. fib with RVR. We will obtain a limited echo. We will continue to monitor. No indication for anticoagulation this time. Qualifiers: Atrial fibrillation type: paroxysmal Qualified Code(s): I48.0 - Paroxysmal atrial fibrillation (6) DVT prophylaxis Current Visit: Yes Status: Acute Heparin 5000 units subcutaneous every 8. (7) Goals of care, counseling/discussion Current Visit: Yes Status: Acute Patient is DNR CCA. Palliative is following and we appreciate their assistance. The brought paperwork that designated him medical power of contract attorney. We will continue with aggressive measures at this time however the states that the patient would not wish long-term life-sustaining measures including tracheostomy and PEG tube placement. Patient was able to wake up enough 3 days ago to respond to questions and she was able to indicate that she wanted to continue with aggressive treatment at this time, so we will continue with this. We will continually reassess goals of care. Subjective Principal diagnosis: Respiratory failure Interval history: Patient seen and examined at bedside. Patient remains intubated and sedated. She is not responding due to sedation at this time. She does not appear to be in any acute distress. Objective PUL Vital signs: Last Vital Signs Temp 98.2 F 11/13/16 04:00 Pulse 90 11/13/16 06:00 Resp 23 11/13/16 06:03 BP 138/73 11/13/16 06:03 Pulse Ox 94 L 11/13/16 06:03 General appearance: no acute distress, comatose Effort: normal Auscultation: bilateral: diminished breath sounds Cardiovascular: regular rate and rhythm Gastrointestinal: hypoactive bowel sounds, soft, non-tender, non-distended Extremities: no cyanosis, no clubbing, edema (1+) unable to assess due to mental status Ventilator Settings Ventilator Settings: Ventilator Settings, Last 8 Hours Ventilator Mode VC+ Ventilator Mode VC+ Ventilator Mode VC+ Ventilator Mode VC+ Ventilator Mode VC+ Ventilator Mode VC+ Ventilator Mode VC+ Ventilator Mode VC+ Ventilator Mode VC+ Ventilator Mode VC+ Ventilator Tidal Volume 360 Setting Ventilator Tidal Volume 360 Setting Ventilator Tidal Volume 360 Setting Ventilator Tidal Volume 360 Setting Ventilator Tidal Volume 360 Setting Ventilator Tidal Volume 3,660 Setting Ventilator Tidal Volume 360 Setting Ventilator Tidal Volume 360 Setting Ventilator Tidal Volume 360 Setting Ventilator Tidal Volume 360 Setting Ventilator Respiratory Rate 22 Setting Ventilator Respiratory Rate 22 Setting Ventilator Respiratory Rate 22 Setting Ventilator Respiratory Rate 22 Setting Ventilator Respiratory Rate 22 Setting Ventilator Respiratory Rate 22 Setting Ventilator Respiratory Rate 22 Setting Ventilator Respiratory Rate 22 Setting Ventilator Respiratory Rate 22 Setting Ventilator Respiratory Rate 22 Setting Actual Respiratory Rate 22 Actual Respiratory Rate 23 Actual Respiratory Rate 22 Actual Respiratory Rate 22 Actual Respiratory Rate 23 Actual Respiratory Rate 24 Actual Respiratory Rate 23 Actual Respiratory Rate 23 Actual Respiratory Rate 23 Actual Respiratory Rate 24 Positive End Expiratory 14 Pressure Positive End Expiratory 14 Pressure Positive End Expiratory 14 Pressure Positive End Expiratory 14 Pressure Positive End Expiratory 14 Pressure Positive End Expiratory 14 Pressure Positive End Expiratory 14 Pressure Positive End Expiratory 14 Pressure Positive End Expiratory 14 Pressure Positive End Expiratory 14 Pressure Peak Inspiratory Airway 28 Pressure Peak Inspiratory Airway 26 Pressure Peak Inspiratory Airway 28 Pressure Peak Inspiratory Airway 28 Pressure Peak Inspiratory Airway 31 Pressure Peak Inspiratory Airway 28 Pressure Peak Inspiratory Airway 31 Pressure Peak Inspiratory Airway 29 Pressure Peak Inspiratory Airway 29 Pressure Peak Inspiratory Airway 28 Pressure Results - Laboratory Findings CBC and BMP: 11/13/16 04:16 11/13/16 04:16 ABG ABG pH 7.40 pH Units (7.32-7.45) 11/12/16 14:39 ABG pCO2 56 mmHg (35-45) H 11/12/16 14:39 ABG pO2 60 mmHg (85-104) L 11/12/16 14:39 ABG O2 Saturation 91 % (95-98) L 11/12/16 14:39 PT/INR, D-dimer PT 13.9 Seconds (9.4-12.1) H 11/06/16 17:19 D-Dimer 3921 ng/mLFEU (0-500) H 11/06/16 17:19 Abnormal lab findings: Abnormal lab results RBC 5.07 M/mcL (3.82-4.97) H 11/13/16 04:16 RDW 15.8 % (11.5-14.5) H 11/13/16 04:16 Lymphocytes # 0.1 K/mcL (0.6-4.6) L 11/13/16 04:16 Nucleated RBCs/100 WBC 0.2 /100 WBC (0) H 11/11/16 03:00 Toxic Granulation Present (Not Present) A 11/13/16 04:16 Immature Plt Fraction 6.9 % (1.1-6.1) H 11/06/16 17:19 PT 13.9 Seconds (9.4-12.1) H 11/06/16 17:19 APTT 72.0 Seconds (26.0-36.0) H 11/10/16 02:00 D-Dimer 3921 ng/mLFEU (0-500) H 11/06/16 17:19 ABG pCO2 56 mmHg (35-45) H 11/12/16 14:39 ABG pO2 60 mmHg (85-104) L 11/12/16 14:39 ABG HCO3 34.7 mEQ/L (21-27) H 11/12/16 14:39 ABG Total CO2 36.4 mEq/L (20-26) H 11/12/16 14:39 ABG O2 Saturation 91 % (95-98) L 11/12/16 14:39 ABG Base Excess 8.2 mEq/L (-2.0 to 3.0) H 11/12/16 14:39 Chloride 97 mEq/L (98-109) L 11/13/16 04:16 Carbon Dioxide 30 mEq/L (19-29) H 11/13/16 04:16 BUN 66 mg/dL (7-20) H 11/13/16 04:16 Creatinine 1.89 mg/dL (0.57-1.11) H 11/13/16 04:16 Est GFR ( Amer) 33 (> 60) L 11/13/16 04:16 Est GFR (Non-Af Amer) 27 (> 60) L 11/13/16 04:16 BUN/Creatinine Ratio 35 (6-26) H 11/13/16 04:16 Glucose 200 mg/dL (70-99) H 11/13/16 04:16 POC Glucose 205 (58-89) H 11/13/16 00:10 Calculated Osmolality 313 (280-300) H 11/13/16 04:16 Ionized Calcium 1.13 mmol/L (1.15-1.35) L 11/13/16 04:16 Phosphorus 4.9 mg/dL (2.3-4.7) H 11/13/16 04:16 Creatine Kinase 253 Units/L (29-168) H 11/10/16 07:25 Troponin I 0.17 ng/mL (0-0.03) H* 11/13/16 04:16 B-Natriuretic Peptide 2717 pg/mL (0-100) H 11/06/16 17:19 Albumin 2.4 g/dL (3.5-5.0) L 11/13/16 04:16 Globulin 4.2 g/dL (2.4-3.5) H 11/13/16 04:16 Albumin/Globulin Ratio 0.6 (1.1-2.2) L 11/13/16 04:16 Triglycerides 153 mg/dL (< 150) H 11/10/16 07:25 Lipase 132 Units/L (8-78) H 11/10/16 07:25 - Clinical Findings Intake & Output: Intake & Output 11/12/16 11/12/16 11/13/16 15:59 23:59 07:59 Intake Total 775 / 775 460 / 460 667 / 667 Output Total 850 / 850 375 / 375 850 / 850 Balance -75 / -75 85 / 85 -183 / -183 Weight 133.2 kg Consult Discharge Plan - Plan Referrals: Kay Palmer [Primary Care Provider] - <Sai Mcconnell - Last Filed: 11/13/16 10:20> Date of Encounter: 11/13/16 Objective PUL Vital signs: Last Vital Signs Temp 99.7 F H 11/13/16 07:20 Pulse 96 11/13/16 09:19 Resp 24 11/13/16 09:19 BP 135/68 11/13/16 09:19 Pulse Ox 90 L 11/13/16 09:19 Ventilator Settings Ventilator Settings: Ventilator Settings, Last 8 Hours Ventilator Mode VC+ Ventilator Mode VC+ Ventilator Mode VC+ Ventilator Mode VC+ Ventilator Mode VC+ Ventilator Mode VC+ Ventilator Mode VC+ Ventilator Mode VC+ Ventilator Mode VC+ Ventilator Mode VC+ Ventilator Mode VC+ Ventilator Tidal Volume 300 Setting Ventilator Tidal Volume 300 Setting Ventilator Tidal Volume 360 Setting Ventilator Tidal Volume 360 Setting Ventilator Tidal Volume 360 Setting Ventilator Tidal Volume 360 Setting Ventilator Tidal Volume 360 Setting Ventilator Tidal Volume 360 Setting Ventilator Tidal Volume 360 Setting Ventilator Tidal Volume 3,660 Setting Ventilator Tidal Volume 360 Setting Ventilator Respiratory Rate 20 Setting Ventilator Respiratory Rate 22 Setting Ventilator Respiratory Rate 22 Setting Ventilator Respiratory Rate 22 Setting Ventilator Respiratory Rate 22 Setting Ventilator Respiratory Rate 22 Setting Ventilator Respiratory Rate 22 Setting Ventilator Respiratory Rate 22 Setting Ventilator Respiratory Rate 22 Setting Ventilator Respiratory Rate 22 Setting Ventilator Respiratory Rate 22 Setting Actual Respiratory Rate 24 Actual Respiratory Rate 25 Actual Respiratory Rate 25 Actual Respiratory Rate 22 Actual Respiratory Rate 23 Actual Respiratory Rate 22 Actual Respiratory Rate 22 Actual Respiratory Rate 23 Actual Respiratory Rate 24 Actual Respiratory Rate 23 Positive End Expiratory 14 Pressure Positive End Expiratory 14 Pressure Positive End Expiratory 14 Pressure Positive End Expiratory 14 Pressure Positive End Expiratory 14 Pressure Positive End Expiratory 14 Pressure Positive End Expiratory 14 Pressure Positive End Expiratory 14 Pressure Positive End Expiratory 14 Pressure Positive End Expiratory 14 Pressure Positive End Expiratory 14 Pressure Peak Inspiratory Airway 24 Pressure Peak Inspiratory Airway 24 Pressure Peak Inspiratory Airway 28 Pressure Peak Inspiratory Airway 28 Pressure Peak Inspiratory Airway 26 Pressure Peak Inspiratory Airway 28 Pressure Peak Inspiratory Airway 28 Pressure Peak Inspiratory Airway 31 Pressure Peak Inspiratory Airway 28 Pressure Peak Inspiratory Airway 31 Pressure Results - Laboratory Findings CBC and BMP: 11/13/16 04:16 11/13/16 04:16 ABG ABG pH 7.41 pH Units (7.32-7.45) 11/13/16 07:23 ABG pCO2 57 mmHg (35-45) H 11/13/16 07:23 ABG pO2 65 mmHg (85-104) L 11/13/16 07:23 ABG O2 Saturation 93 % (95-98) L 11/13/16 07:23 PT/INR, D-dimer PT 13.9 Seconds (9.4-12.1) H 11/06/16 17:19 D-Dimer 3921 ng/mLFEU (0-500) H 11/06/16 17:19 Abnormal lab findings: Abnormal lab results RBC 5.07 M/mcL (3.82-4.97) H 11/13/16 04:16 RDW 15.8 % (11.5-14.5) H 11/13/16 04:16 Lymphocytes # 0.1 K/mcL (0.6-4.6) L 11/13/16 04:16 Nucleated RBCs/100 WBC 0.2 /100 WBC (0) H 11/11/16 03:00 Toxic Granulation Present (Not Present) A 11/13/16 04:16 Immature Plt Fraction 6.9 % (1.1-6.1) H 11/06/16 17:19 PT 13.9 Seconds (9.4-12.1) H 11/06/16 17:19 APTT 72.0 Seconds (26.0-36.0) H 11/10/16 02:00 D-Dimer 3921 ng/mLFEU (0-500) H 11/06/16 17:19 ABG pCO2 57 mmHg (35-45) H 11/13/16 07:23 ABG pO2 65 mmHg (85-104) L 11/13/16 07:23 ABG HCO3 36.1 mEQ/L (21-27) H 11/13/16 07:23 ABG Total CO2 37.8 mEq/L (20-26) H 11/13/16 07:23 ABG O2 Saturation 93 % (95-98) L 11/13/16 07:23 ABG Base Excess 9.0 mEq/L (-2.0 to 3.0) H 11/13/16 07:23 Chloride 97 mEq/L (98-109) L 11/13/16 04:16 Carbon Dioxide 30 mEq/L (19-29) H 11/13/16 04:16 BUN 66 mg/dL (7-20) H 11/13/16 04:16 Creatinine 1.89 mg/dL (0.57-1.11) H 11/13/16 04:16 Est GFR ( Amer) 33 (> 60) L 11/13/16 04:16 Est GFR (Non-Af Amer) 27 (> 60) L 11/13/16 04:16 BUN/Creatinine Ratio 35 (6-26) H 11/13/16 04:16 Glucose 200 mg/dL (70-99) H 11/13/16 04:16 POC Glucose 205 (58-89) H 11/13/16 00:10 Calculated Osmolality 313 (280-300) H 11/13/16 04:16 Ionized Calcium 1.13 mmol/L (1.15-1.35) L 11/13/16 04:16 Phosphorus 4.9 mg/dL (2.3-4.7) H 11/13/16 04:16 Creatine Kinase 253 Units/L (29-168) H 11/10/16 07:25 Troponin I 0.17 ng/mL (0-0.03) H* 11/13/16 04:16 B-Natriuretic Peptide 2717 pg/mL (0-100) H 11/06/16 17:19 Albumin 2.4 g/dL (3.5-5.0) L 11/13/16 04:16 Globulin 4.2 g/dL (2.4-3.5) H 11/13/16 04:16 Albumin/Globulin Ratio 0.6 (1.1-2.2) L 11/13/16 04:16 Triglycerides 153 mg/dL (< 150) H 11/10/16 07:25 Lipase 132 Units/L (8-78) H 11/10/16 07:25 - Clinical Findings Intake & Output: Intake & Output 11/12/16 11/13/16 11/13/16 23:59 07:59 15:59 Intake Total 460 / 460 667 / 667 475 / 475 Output Total 375 / 375 850 / 850 150 / 150 Balance 85 / 85 -183 / -183 325 / 325 Weight 133.2 kg - Attending Attestation I examined this patient and my medical decision-making was reviewed with the MANUFACTURING QUALITY TECHNICIAN/PA/Advanced Practice Nurse/Resident Physician. I agree with the documented findings, disposition and treatment plan as described except to the extent set forth below. I spent 35min of Critical Care time with this patient. It involved decision making of high complexity to assess, manipulate, and support vital organ system failure and/or to prevent further life threatening deterioration of the patient' s condition. The time involved in the performance of separately reportable procedures was not counted toward critical care time. Patient seen and examined at bedside Labs, radiology, chart personally reviewed. All lines examined without evidence of infection. Neuro: Intubated and sedated. goal RASS -(2). Does have spontaneous eye opening and movement of all ext's. Pulm: Severe Hypoxic respiratory failure ?PNA with likely non cardiogenic edema (ARDS in setting of advanced COPD. Went adjusted now Fio2 =70% with acceptable oxygenation and ventilation. CXR improved aeration of LLL. Low tidal volume strategy employed. Goal PaO2 >55. COnt BDs and Steroids for COPD Cards: transent hypotension with Afib with RVR (hypoxia induced) now sinus cont amiodarone and cardizem; HFpEF diuresis. goal 1-2L today as tolerated by BP. Limited ECHO today. Slight trop elevation likely demand ischemia from hypotension and afib. Limited ECHO pending. cycle trops. FEN-GI: PPI prophylaxis cont Bowel regimen cont Enteral feedings ileus resolving Renal: PRICE multifactorial. Creatinine improved overnight but good UOP. cont to Trial diuretic with BID RFPs ID: CAP cont ABx day 05/07 cultures negative thus far. STOP ABx today. Heme/Onc: H/H stable DVT prophylaxis with subQ heparin Endo: SSi and monitor glucose Integ: skin care per ICU protocol CODE: [id number] - Prognosis poor to guarded. Family updated at bedside.
[2016-11-13] MEDS: Budesonide/Formoterol 160/4.5 MDI IH SCH ×2 (07:15→22:49)
[2016-11-13 07:32] LABS: ABG HCO3 36.1 mEQ/L (21-27); ABG Oxygen Saturation 93 % (95-98); ABG PCO2 57 mmHg (35-45); ABG PH 7.41 pH Units (7.32-7.45); ABG PO2 65 mmHg (85-104); ABG TCO2 37.8 mEq/L (20-26); Blood Gas FiO2 80 %
[2016-11-13] MEDS ORDERED: Bisacodyl 10 MG RECTAL SUPPOSITORY RC PRN (08:00)
[2016-11-13] MEDS: FentaNYL (PF) 3,000 MCG in 0.9 % Sodium Chloride 240 ML IVC SCH (08:34)
[2016-11-13] MEDS: Pantoprazole 40 MG VIAL IVP SCH (08:35)
[2016-11-13] MEDS: Aspirin 81 MG TAB.CHEW GTUBE SCH (08:35)
[2016-11-13] MEDS: Chlorhexidine Rinse 15 ML MOUTHWASH MM SCH ×2 (08:35→20:42)
[2016-11-13] MEDS: Nicotine 21 MG PATCH.TD24 TD SCH ×2 (08:35→09:59)
[2016-11-13] MEDS: Lacri-Lube 3.5 GM TUBE BOTH EYES SCH ×2 (08:39→20:43)
--- NOTE | 2016-11-13 10:02 | Electrocardiograph Report ---
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
[2016-11-13] MEDS ORDERED: Furosemide 40 MG/4 ML VIAL IVP ONE ×3 (10:08→23:59)
--- NOTE | 2016-11-13 11:10 | ECHO - Doppler Report ---
Limited Echocardiogram Name: Sierra Goodman Date of Study: 11/13/2016 Date: 1955 Ht: 68.0 in Medical Record#: [id number] Age: 60 Wt: 292.0 lb Gender: Female BSA: 2.4 Order #: [id number] Location: [facility] Room #: 03 Reading Physician: Guero Kwong DO, FACC, FASE, FASNC Triage Specialist: Ricci Em RDCS Ordering Physician: Sai Mcconnell MD Primary Physician: Kay Palmer MD Indications: Troponin elevation Impressions: LVEF 65-70%. Normal LV chamber size, wall thickness and function. Limited study for LV function. See recent study dated 11/07/2016 for other details. Left Ventricular Wall Motion: Rest Echo Findings All wall segments showed normal motion. Findings: Study Quality * Technically adequate exam. ECG Findings * Normal sinus rhythm. Left Ventricle * LVEF 65-70%. * Normal LV chamber size, wall thickness and function. Right Ventricle * Right ventricle is mildly dilated with normal function. History Hypertension Hypercholesteremia History of Smoking Years 30 Packs 1 11/07/16 a Previous Echo was performed. Measurements: BP: 135/ 68 2D Normal Values RVIDd: 2.61 cm <2.7 cm IVSd: .86 cm 0.6 - 1.0 cm LVIDd: 5.08 cm 3.7 - 5.6 cm LVPWd: .89 cm 0.6 - 1.1 cm LVIDs: 3.09 cm 1.5 - 3.6 cm %FS: 39.20 cm >25 % LA volume: Updated by Guero Kwong DO, FACC, FASE, FASNC on 11/13/2016 11:00:41 AM electronically signed on 11/13/2016 11:03:58 AM with status of Final Wall Motion [place]: 1=Normal, 2=Hypokinesis, 3=Akinesis, 4=Dyskinesis, 5=Aneurysmal, 6=Hyperkinetic, X=Not Visualized (Blank)=Missing
--- NOTE | 2016-11-13 13:26 | Electrocardiograph Report ---
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
--- NOTE | 2016-11-13 13:50 | Palliative Progress Note ---
Date of Encounter: 11/13/16 Time of Encounter: 09:30 - Assessment and plan (1) Pain Current Visit: Yes Status: Acute Assessment and plan: Well-controlled on fentanyl drip No changes today. Continue current medications today 11/11/2016 no changes 11/13 (2) Dyspnea Current Visit: Yes Status: Acute Assessment and plan: She is now off paralysis. Patient does however have an increasing FiO2 requirement now up to 70% and PEEP is up to 12. Oxygen saturations running in the 85-86% range. Patient is very slowly being weaned, however the patient's FiO2 is still elevated and PEEP is still over 14. The plan is for very slow weaning. Continue to watch. n Qualifiers: Dyspnea type: shortness of breath Qualified Code(s): R06.02 - Shortness of breath (3) Acute exacerbation of chronic obstructive pulmonary disease (COPD) Current Visit: Yes Status: Acute Assessment and plan: still on vent plan per pulmonary team. no changes 11/13 (4) Acute respiratory failure with hypercapnia Current Visit: Yes Status: Acute Assessment and plan: cont current meds and treatment plan no changes 11/13 (5) Breast cancer Current Visit: No Status: Acute Assessment and plan: History turn to cancer Center for continued care of the patient if she is pulled through this. no changes 11/13 Dr Mckenna is aware Qualifiers: Breast location: upper outer quadrant of breast Patient gender: female Laterality: right Qualified Code(s): C50.411 - Malignant neoplasm of upper- outer quadrant of right female breast (6) Goals of care, counseling/discussion Current Visit: Yes Status: Acute Assessment and plan: DNRCCA, patient is already intubated area all plan is to do aggressive therapy to try to get her off the ventilator, however there would be no tracheal pain.. has been kept appraised, I did speak to him today brought him up to the minute. The plan for today is to continue slowly weaning the ventilator. His family is very appreciative of the care that she has gotten. Continue to watch. - Time Spent With Patient Total time spent is greater than 50% in coordination of care (as documented) at patient's floor/unit and/or counseling patient: - Subjective Interval history: Intubated on ventilator she is still requiring increased po2 and inc peep but this is being very slowly weaned down. Patient has had no arrhythmias last night or so far today. - Constitutional Vitals: Abnormal lab results RBC 5.07 M/mcL (3.82-4.97) H 11/13/16 04:16 RDW 15.8 % (11.5-14.5) H 11/13/16 04:16 Lymphocytes # 0.1 K/mcL (0.6-4.6) L 11/13/16 04:16 Nucleated RBCs/100 WBC 0.2 /100 WBC (0) H 11/11/16 03:00 Toxic Granulation Present (Not Present) A 11/13/16 04:16 Immature Plt Fraction 6.9 % (1.1-6.1) H 11/06/16 17:19 PT 13.9 Seconds (9.4-12.1) H 11/06/16 17:19 APTT 72.0 Seconds (26.0-36.0) H 11/10/16 02:00 D-Dimer 3921 ng/mLFEU (0-500) H 11/06/16 17:19 ABG pCO2 57 mmHg (35-45) H 11/13/16 07:23 ABG pO2 65 mmHg (85-104) L 11/13/16 07:23 ABG HCO3 36.1 mEQ/L (21-27) H 11/13/16 07:23 ABG Total CO2 37.8 mEq/L (20-26) H 11/13/16 07:23 ABG O2 Saturation 93 % (95-98) L 11/13/16 07:23 ABG Base Excess 9.0 mEq/L (-2.0 to 3.0) H 11/13/16 07:23 Chloride 97 mEq/L (98-109) L 11/13/16 04:16 Carbon Dioxide 30 mEq/L (19-29) H 11/13/16 04:16 BUN 66 mg/dL (7-20) H 11/13/16 04:16 Creatinine 1.89 mg/dL (0.57-1.11) H 11/13/16 04:16 Est GFR ( Amer) 33 (> 60) L 11/13/16 04:16 Est GFR (Non-Af Amer) 27 (> 60) L 11/13/16 04:16 BUN/Creatinine Ratio 35 (6-26) H 11/13/16 04:16 Glucose 200 mg/dL (70-99) H 11/13/16 04:16 POC Glucose 205 (58-89) H 11/13/16 00:10 Calculated Osmolality 313 (280-300) H 11/13/16 04:16 Ionized Calcium 1.13 mmol/L (1.15-1.35) L 11/13/16 04:16 Phosphorus 4.9 mg/dL (2.3-4.7) H 11/13/16 04:16 Creatine Kinase 253 Units/L (29-168) H 11/10/16 07:25 Troponin I 0.17 ng/mL (0-0.03) H* 11/13/16 04:16 B-Natriuretic Peptide 2717 pg/mL (0-100) H 11/06/16 17:19 Albumin 2.4 g/dL (3.5-5.0) L 11/13/16 04:16 Globulin 4.2 g/dL (2.4-3.5) H 11/13/16 04:16 Albumin/Globulin Ratio 0.6 (1.1-2.2) L 11/13/16 04:16 Triglycerides 153 mg/dL (< 150) H 11/10/16 07:25 Lipase 132 Units/L (8-78) H 11/10/16 07:25 General appearance: Present: no acute distress - Head Head exam: Present: atraumatic, normal inspection - Eye Eye exam: Present: normal appearance - ENT ENT exam: Present: mucous membranes moist - Neck Neck exam: Present: normal inspection - Respiratory Respiratory exam: Present: decreased breath sounds, rhonchi - Cardiovascular Cardiovascular exam: Present: RRR - GI/Abdominal GI/Abdominal exam: Present: hypoactive bowel sounds, soft. Absent: tenderness - Extremities Exam Extremities exam: Present: normal inspection, pedal edema. Absent: tenderness - Neurological Exam Neurological exam: Present: altered (Sedated on vent) - Psychiatric Psychiatric exam: Absent: agitated, anxious - Skin Skin exam: Present: dry, warm Palliative Quality Palliative Quality: Screen for Code Status: Yes (Further screening awaiting family.), Screen for Goals of Care: Yes (Further screening awaiting family.), Screen for Pain: Yes, If Pain Regimen Started, Initiate Bowel Regimen: NA, Screen for Nausea/Vomitting: Yes Code Status: 11/07/16 04:31 CODE [Resuscitation Status: Active] [RES] Routine Comment: Resuscitation Status: Full Code CODE [Resuscitation Status: Active] [RES] Routine Comment: Resuscitation Status: DNR-Comfort Care-Arrest - Labs CBC & Chem 7: 11/13/16 04:16 11/13/16 04:16 Labs: Laboratory Results - last 24 hr 11/12/16 11/12/16 11/12/16 10:50 14:39 15:09 WBC RBC Hgb Hct MCV MCH MCHC RDW Plt Count MPV Immature Gran % Seg Neutrophils % Lymphocytes % Monocytes % Eosinophils % Basophils % Neutrophils # Lymphocytes # Monocytes # Eosinophils # Basophils # Toxic Granulation Platelet Estimate ABG pH 7.40 ABG pCO2 56 H ABG pO2 60 L ABG HCO3 34.7 H ABG Total CO2 36.4 H ABG O2 Saturation 91 L ABG Base Excess 8.2 H Blood Gas Modality VCT DDRAKE Inspired O2 100.0 Tidal Volume 360 Sodium Potassium Chloride Carbon Dioxide BUN Creatinine Est GFR ( Amer) Est GFR (Non-Af Amer) BUN/Creatinine Ratio Glucose POC Glucose 142 H Calculated Osmolality Calcium Ionized Calcium Phosphorus Magnesium Total Bilirubin Direct Bilirubin Indirect Bilirubin AST ALT Alkaline Phosphatase Troponin I 0.24 H* Serum Total Protein Albumin Globulin Albumin/Globulin Ratio 11/13/16 11/13/16 11/13/16 00:10 04:16 04:16 WBC 8.7 RBC 5.07 H Hgb 14.4 Hct 44.2 MCV 87.2 MCH 28.4 MCHC 32.6 RDW 15.8 H Plt Count 180 MPV 11.9 Immature Gran % 0.5 Seg Neutrophils % 95.1 Lymphocytes % 1.5 Monocytes % 2.8 Eosinophils % 0.0 Basophils % 0.1 Neutrophils # 8.3 Lymphocytes # 0.1 L Monocytes # 0.2 Eosinophils # 0.0 Basophils # 0.0 Toxic Granulation Present A Platelet Estimate Normal ABG pH ABG pCO2 ABG pO2 ABG HCO3 ABG Total CO2 ABG O2 Saturation ABG Base Excess Blood Gas Modality Inspired O2 Tidal Volume Sodium 139 Potassium 4.3 Chloride 97 L Carbon Dioxide 30 H BUN 66 H Creatinine 1.89 H Est GFR ( Amer) 33 L Est GFR (Non-Af Amer) 27 L BUN/Creatinine Ratio 35 H Glucose 200 H POC Glucose 205 H Calculated Osmolality 313 H Calcium 9.6 Ionized Calcium 1.13 L Phosphorus 4.9 H Magnesium 2.4 Total Bilirubin 0.4 Direct Bilirubin 0.3 Indirect Bilirubin 0.1 AST 33 ALT 48 Alkaline Phosphatase 74 Troponin I Serum Total Protein 6.6 Albumin 2.4 L Globulin 4.2 H Albumin/Globulin Ratio 0.6 L 11/13/16 11/13/16 04:16 07:23 WBC RBC Hgb Hct MCV MCH MCHC RDW Plt Count MPV Immature Gran % Seg Neutrophils % Lymphocytes % Monocytes % Eosinophils % Basophils % Neutrophils # Lymphocytes # Monocytes # Eosinophils # Basophils # Toxic Granulation Platelet Estimate ABG pH 7.41 ABG pCO2 57 H ABG pO2 65 L ABG HCO3 36.1 H ABG Total CO2 37.8 H ABG O2 Saturation 93 L ABG Base Excess 9.0 H Blood Gas Modality VC+ Inspired O2 80 Tidal Volume Sodium Potassium Chloride Carbon Dioxide BUN Creatinine Est GFR ( Amer) Est GFR (Non-Af Amer) BUN/Creatinine Ratio Glucose POC Glucose Calculated Osmolality Calcium Ionized Calcium Phosphorus Magnesium Total Bilirubin Direct Bilirubin Indirect Bilirubin AST ALT Alkaline Phosphatase Troponin I 0.17 H* Serum Total Protein Albumin Globulin Albumin/Globulin Ratio - Impressions Impressions Chest X-Ray 11/13/16 08:14 IMPRESSION: Bilateral airspace disease, increased on the right but decreased on the left D/ / Vidal Casillas MD / Vidal Casillas MD Interpreting Provider: Vidal Casillas MD - ABG Interpretation ABG results: ABG ABG pH 7.41 pH Units (7.32-7.45) 11/13/16 07:23 ABG pCO2 57 mmHg (35-45) H 11/13/16 07:23 ABG pO2 65 mmHg (85-104) L 11/13/16 07:23 ABG O2 Saturation 93 % (95-98) L 11/13/16 07:23 PT/INR, D-dimer PT 13.9 Seconds (9.4-12.1) H 11/06/16 17:19 D-Dimer 3921 ng/mLFEU (0-500) H 11/06/16 17:19 Consult Discharge Plan - Plan Referrals: Kay Palmer [Primary Care Provider] -
[2016-11-13] MEDS: Azithromycin 500 MG in D5% in Water 250 ML IVPB SCH (16:58)
[2016-11-13] MEDS: Ipratropium/Albuterol Neb 3 ML IH PRN (22:55)
[2016-11-14] MEDS: Amiodarone Premix 360 MG/200 ML BAG IVC SCH
[2016-11-14] MEDS: Ipratropium/Albuterol Neb 3 ML IH SCH ×6 (00:02→19:50)
[2016-11-14] MEDS: Insulin LISPRO 300 UNITS/3 ML VIAL SQ SCH ×5 (00:03→23:55)
[2016-11-14] MEDS: Vecuronium 50 MG in 0.9 % Sodium Chloride 150 ML IVC SCH (00:28)
[2016-11-14] MEDS: Dexmedetomidine HCl 400 MCG/100 ML MLS IVC SCH ×5 (03:12→20:49)
[2016-11-14] MEDS: FentaNYL (PF) 3,000 MCG in 0.9 % Sodium Chloride 240 ML IVC SCH ×2 (03:13→12:49)
[2016-11-14] MEDS: MethylPREDNISolone 40 MG/ML VIAL IVP SCH ×4 (03:13→20:48)
[2016-11-14] MEDS: *HR* Heparin 5,000 UNIT/ML VIAL SQ SCH ×3 (03:13→17:27)
[2016-11-14 03:32] LABS: Basophils % 0.1 %; Hematocrit 43.9 % (35.3-44.9); Hemoglobin 14.4 g/dL (11.5-15.4); Immature Granulocytes % 0.5 % (0-4); Lymphocytes # 0.1 K/mcL (0.6-4.6); Lymphocytes % 1.2 %; Mean Corpuscular HGB Conc 32.8 g/dL (31.6-35.5); Mean Corpuscular Hemoglobin 28.9 pg (28.0-33.3); Mean Platelet Volume 11.1 fL (9.4-12.4); Monocytes # 0.6 K/mcL (0.0-1.3); Monocytes % 5.7 %; Platelet Count 201 K/mcL (140-400); Red Blood Count 4.99 M/mcL (3.82-4.97); Red Cell Distribution Width 15.7 % (11.5-14.5); Segmented Neutrophils % 92.5 %
[2016-11-14 03:41] LABS: Ionized Calcium 1.17 mmol/L (1.15-1.35)
[2016-11-14 03:47] LABS: Calcium 9.8 mg/dL (8.6-10.8); Magnesium 2.4 mg/dL (1.6-2.6); Phosphorous 4.9 mg/dL (2.3-4.7); Potassium 3.5 mEq/L (3.5-4.5)
[2016-11-14 05:05] LABS: Hypersegmented Neutrophils Present (Not Present); Large Platelets Present (Not Present); Platelet Estimate Normal (Normal); Toxic Granulation Present (Not Present)
[2016-11-14 05:14] LABS: ABG Base Excess 10.2 mEq/L (-2.0 to 3.0); ABG HCO3 37.2 mEQ/L (21-27); ABG Oxygen Saturation 92 % (95-98); ABG PCO2 60 mmHg (35-45); ABG PO2 64 mmHg (85-104); Blood Gas VT 360 cc
[2016-11-14] MEDS: Ipratropium/Albuterol Neb 3 ML IH PRN ×2 (05:33→21:56)
--- NOTE | 2016-11-14 06:32 | Pulmonology Progress Note ---
Date of Encounter: 11/14/16 Time of Encounter: 06:32 Assessment and Plan (1) Acute respiratory failure with hypercapnia Current Visit: Yes Status: Acute I spent 35min of Critical Care time with this patient. It involved decision making of high complexity to assess, manipulate, and support vital organ system failure and/or to prevent further life threatening deterioration of the patient' s condition. The time involved in the performance of separately reportable procedures was not counted toward critical care time. Neuro: Intubated and sedated. goal RASS -(2). Does have spontaneous eye opening and movement of all ext's to prompting. Had irregular eye movement yesterday and EEG ordered for possible status results pending no further episodes. Suspect element of hypoactive delirium Pulm: Severe Hypoxic respiratory failure likely PNA complicated by cardiogenic and non cardiogenic edema (ARDS) in setting of advanced COPD. Vent adjusted now Fio2 =50% and PEEP 12. with acceptable oxygenation and ventilation. CXR stable. Low tidal volume strategy employed. Goal PaO2 >55. Cont BDs and Steroids for COPD Cards: Afib with RVR now sinus stop amiodarone start scheduled cardizem PO ( also for increased BP); HFpEF diuresis. goal 1-2L today as tolerated. Trop elevation in setting of demand ischemia ECHO no acute changes (RV strain w/o dysfunction likely s/t hypoxia and high PEEP at the time) FEN-GI: PPI prophylaxis cont Bowel regimen will also give dulcolax suppository. Higher residuals today so Enteral feedings on hold. Renal: PRICE multifactorial. Creatinine stable cont diuretic with BID RFPs. Replaced lytes per protocol ID: CAP completed ABx. cont to monitor. WBC elevation likely steroid/ inflammatory Heme/Onc: H/H stable DVT prophylaxis with subQ heparin Endo: SSi and and cont to monitor glucose Integ: skin care per ICU protocol CODE: DNRCCA - Prognosis guarded. Family updated at bedside. (2) Acute exacerbation of chronic obstructive pulmonary disease (COPD) Current Visit: Yes Status: Acute (3) Acute kidney injury superimposed on CKD Current Visit: Yes Status: Acute (4) Atrial fibrillation Current Visit: Yes Status: Acute Qualifiers: Atrial fibrillation type: paroxysmal Qualified Code(s): I48.0 - Paroxysmal atrial fibrillation (5) COPD (chronic obstructive pulmonary disease) Current Visit: Yes Status: Acute Qualifiers: COPD type: unspecified COPD Qualified Code(s): J44.9 - Chronic obstructive pulmonary disease, unspecified (6) Cigarette smoker Current Visit: Yes Status: Acute (7) DVT prophylaxis Current Visit: Yes Status: Acute (8) Elevated troponin Current Visit: Yes Status: Acute (9) Goals of care, counseling/discussion Current Visit: Yes Status: Acute (10) Invasive ductal carcinoma of breast Current Visit: Yes Status: Chronic Qualifiers: Laterality: right Qualified Code(s): C50.911 - Malignant neoplasm of unspecified site of right female breast (11) Hypertension Current Visit: No Status: Chronic Qualifiers: Hypertension type: essential hypertension Qualified Code(s): I10 - Essential (primary) hypertension Subjective Principal diagnosis: Respiratory failure Interval history: O2 continues to be weaned. unusual eye movements prompted EEG results pending no further activity awake today and follows my commands. Good UOP overnight. Remained in Sinus rhythm overnight. Objective PUL Vital signs: Last Vital Signs Temp 97.5 F L 11/14/16 04:00 Pulse 85 11/14/16 06:00 Resp 12 11/14/16 06:00 BP 162/94 11/14/16 06:00 Pulse Ox 92 L 11/14/16 06:00 General appearance: other (resting comfortably sedated on vent ) ENT: other (intubated ) Auscultation: bilateral: clear, rales Cardiovascular: regular rate and rhythm Integumentary: other (scattered ecchymoses ) Extremities: edema Musculoskeletal: no deformities non-focal exam, pupils equal and round, other (moves all extremities to prompting ) other Ventilator Settings Ventilator Settings: Ventilator Settings, Last 8 Hours Ventilator Mode VC+ Ventilator Mode VC+ Ventilator Mode VC+ Ventilator Mode VC+ Ventilator Mode VC+ Ventilator Mode VC+ Ventilator Mode VC+ Ventilator Tidal Volume 360 Setting Ventilator Tidal Volume 360 Setting Ventilator Tidal Volume 360 Setting Ventilator Tidal Volume 360 Setting Ventilator Tidal Volume 360 Setting Ventilator Tidal Volume 360 Setting Ventilator Tidal Volume 360 Setting Ventilator Respiratory Rate 20 Setting Ventilator Respiratory Rate 20 Setting Ventilator Respiratory Rate 20 Setting Ventilator Respiratory Rate 20 Setting Ventilator Respiratory Rate 20 Setting Ventilator Respiratory Rate 20 Setting Ventilator Respiratory Rate 20 Setting Actual Respiratory Rate 24 Actual Respiratory Rate 23 Actual Respiratory Rate 25 Actual Respiratory Rate 25 Actual Respiratory Rate 24 Actual Respiratory Rate 21 Positive End Expiratory 14 Pressure Positive End Expiratory 14 Pressure Positive End Expiratory 14 Pressure Positive End Expiratory 14 Pressure Positive End Expiratory 14 Pressure Positive End Expiratory 14 Pressure Positive End Expiratory 14 Pressure Peak Inspiratory Airway 28 Pressure Peak Inspiratory Airway 27 Pressure Peak Inspiratory Airway 27 Pressure Peak Inspiratory Airway 28 Pressure Peak Inspiratory Airway 30 Pressure Peak Inspiratory Airway 29 Pressure Results - Laboratory Findings CBC and BMP: 11/14/16 03:15 11/14/16 03:15 ABG ABG pH 7.40 pH Units (7.32-7.45) 11/14/16 04:40 ABG pCO2 60 mmHg (35-45) H 11/14/16 04:40 ABG pO2 64 mmHg (85-104) L 11/14/16 04:40 ABG O2 Saturation 92 % (95-98) L 11/14/16 04:40 PT/INR, D-dimer PT 13.9 Seconds (9.4-12.1) H 11/06/16 17:19 D-Dimer 3921 ng/mLFEU (0-500) H 11/06/16 17:19 Abnormal lab findings: Abnormal lab results RBC 4.99 M/mcL (3.82-4.97) H 11/14/16 03:15 RDW 15.7 % (11.5-14.5) H 11/14/16 03:15 Neutrophils # 9.0 K/mcL (1.6-8.9) H 11/14/16 03:15 Lymphocytes # 0.1 K/mcL (0.6-4.6) L 11/14/16 03:15 Nucleated RBCs/100 WBC 0.2 /100 WBC (0) H 11/11/16 03:00 Hypersegmented Neuts Present (Not Present) A 11/14/16 03:15 Toxic Granulation Present (Not Present) A 11/14/16 03:15 Large Platelets Present (Not Present) A 11/14/16 03:15 Immature Plt Fraction 6.9 % (1.1-6.1) H 11/06/16 17:19 PT 13.9 Seconds (9.4-12.1) H 11/06/16 17:19 APTT 72.0 Seconds (26.0-36.0) H 11/10/16 02:00 D-Dimer 3921 ng/mLFEU (0-500) H 11/06/16 17:19 ABG pCO2 60 mmHg (35-45) H 11/14/16 04:40 ABG pO2 64 mmHg (85-104) L 11/14/16 04:40 ABG HCO3 37.2 mEQ/L (21-27) H 11/14/16 04:40 ABG Total CO2 39.0 mEq/L (20-26) H 11/14/16 04:40 ABG O2 Saturation 92 % (95-98) L 11/14/16 04:40 ABG Base Excess 10.2 mEq/L (-2.0 to 3.0) H 11/14/16 04:40 Chloride 95 mEq/L (98-109) L 11/14/16 03:15 Carbon Dioxide 31 mEq/L (19-29) H 11/14/16 03:15 BUN 69 mg/dL (7-20) H 11/14/16 03:15 Creatinine 1.96 mg/dL (0.57-1.11) H 11/14/16 03:15 Est GFR ( Amer) 32 (> 60) L 11/14/16 03:15 Est GFR (Non-Af Amer) 26 (> 60) L 11/14/16 03:15 BUN/Creatinine Ratio 35 (6-26) H 11/14/16 03:15 Glucose 208 mg/dL (70-99) H 11/14/16 03:15 POC Glucose 185 (58-89) H 11/13/16 23:36 Calculated Osmolality 318 (280-300) H 11/14/16 03:15 Phosphorus 4.9 mg/dL (2.3-4.7) H 11/14/16 03:15 Creatine Kinase 253 Units/L (29-168) H 11/10/16 07:25 Troponin I 0.17 ng/mL (0-0.03) H* 11/13/16 04:16 B-Natriuretic Peptide 2717 pg/mL (0-100) H 11/06/16 17:19 Albumin 2.4 g/dL (3.5-5.0) L 11/13/16 04:16 Globulin 4.2 g/dL (2.4-3.5) H 11/13/16 04:16 Albumin/Globulin Ratio 0.6 (1.1-2.2) L 11/13/16 04:16 Triglycerides 153 mg/dL (< 150) H 11/10/16 07:25 Lipase 132 Units/L (8-78) H 11/10/16 07:25 - Diagnostic Findings Chest x-ray: report reviewed, image reviewed - Clinical Findings Intake & Output: Intake & Output 11/13/16 11/13/16 11/14/16 15:59 23:59 07:59 Intake Total 1075 / 1075 438 / 438 500 / 500 Output Total 1350 / 1350 700 / 700 875 / 875 Balance -275 / -275 -262 / -262 -375 / -375 Weight 131.7 kg Consult Discharge Plan - Plan Referrals: Kay Palmer [Primary Care Provider] -
[2016-11-14] MEDS ORDERED: Furosemide 40 MG/4 ML VIAL IVP ONE (06:53)
[2016-11-14] MEDS: Budesonide/Formoterol 160/4.5 MDI IH SCH ×2 (07:29→21:56)
[2016-11-14] MEDS: Aspirin 81 MG TAB.CHEW GTUBE SCH (08:12)
[2016-11-14] MEDS: Chlorhexidine Rinse 15 ML MOUTHWASH MM SCH ×2 (08:12→20:48)
[2016-11-14] MEDS: Pantoprazole 40 MG VIAL IVP SCH (08:12)
[2016-11-14] MEDS: Lacri-Lube 3.5 GM TUBE BOTH EYES SCH ×2 (08:14→20:49)
[2016-11-14] MEDS: Nicotine 21 MG PATCH.TD24 TD SCH (08:14)
--- NOTE | 2016-11-14 12:05 | EEG/EMG/Oth Biometrics Report ---
EEG Procedure Report Date of procedure: 11/13/16 EEG Procedure: Routine EEG Procedure Note: Report: This EEG was acquired with standard international 10-20 electrode placement system with EKG recording. The background activity during this EEG was replaced by a mixture of delta, theta and slow alpha activity with best frequency up to 8Hz. The background activity appears reactive. Sleep stages were characterized by presence of K-complexes, vertex waves and diffuse slowing. There are no electricographic seizures identified during this tracing. There are no epileptiform discharges and focal slowing noted during this recording. Photic stimulation produced no abnormalities. HV not performed during this study. EKG tracing showed no significant cardiac dysrhythmia. Impression: This is an abnormal EEG due to presence of moderate diffuse background slowing. No electrographic seizures, no epileptiform discharges and no focal slowing. Clinical Correlation: This EEG is consistent with moderate diffuse cerebral dysfunction that can be seen in patients with encephalopathy, metabolic/toxic, electrolyte derangement, or other causes. Clinical correlation suggested.
[2016-11-14 16:26] LABS: Albumin 2.6 g/dL (3.5-5.0); Potassium 3.8 mEq/L (3.5-4.5)
[2016-11-14] MEDS: Furosemide 40 MG/4 ML VIAL IVP SCH ×2 (17:27→20:49)
[2016-11-14 21:27] LABS: ABG Base Excess 11.3 mEq/L (-2.0 to 3.0); ABG HCO3 35.9 mEQ/L (21-27); ABG Oxygen Saturation 89 % (95-98); ABG PCO2 46 mmHg (35-45); ABG PO2 51 mmHg (85-104); ABG TCO2 37.3 mEq/L (20-26); Blood Gas VT 360 cc
[2016-11-15] MEDS: Ipratropium/Albuterol Neb 3 ML IH SCH ×6 (00:25→20:36)
[2016-11-15] MEDS: Dexmedetomidine HCl 400 MCG/100 ML MLS IVC SCH ×3 (01:10→09:45)
[2016-11-15] MEDS: *HR* Heparin 5,000 UNIT/ML VIAL SQ SCH ×3 (01:52→17:18)
[2016-11-15] MEDS: MethylPREDNISolone 40 MG/ML VIAL IVP SCH ×4 (01:53→20:26)
[2016-11-15] MEDS: FentaNYL (PF) 3,000 MCG in 0.9 % Sodium Chloride 240 ML IVC SCH (01:57)
[2016-11-15] MEDS: Ipratropium/Albuterol Neb 3 ML IH PRN (02:38)
[2016-11-15] MEDS: Furosemide 40 MG/4 ML VIAL IVP SCH ×4 (03:08→21:22)
[2016-11-15 04:46] LABS: ABG Base Excess 11.2 mEq/L (-2.0 to 3.0); ABG HCO3 38.4 mEQ/L (21-27); ABG Oxygen Saturation 90 % (95-98); ABG PCO2 62 mmHg (35-45); ABG PO2 58 mmHg (85-104); ABG TCO2 40.3 mEq/L (20-26); Blood Gas VT 360 cc
[2016-11-15 05:33] LABS: Hematocrit 47.1 % (35.3-44.9); Hemoglobin 15.2 g/dL (11.5-15.4); Immature Granulocytes % 0.5 % (0-4); Lymphocytes # 0.1 K/mcL (0.6-4.6); Lymphocytes % 1.4 %; Mean Corpuscular HGB Conc 32.3 g/dL (31.6-35.5); Mean Corpuscular Hemoglobin 28.1 pg (28.0-33.3); Mean Corpuscular Volume 87.1 fL (83.0-100.0); Mean Platelet Volume 11.4 fL (9.4-12.4); Monocytes # 0.5 K/mcL (0.0-1.3); Monocytes % 6.8 %; Neutrophils # 7.3 K/mcL (1.6-8.9); Platelet Count 210 K/mcL (140-400); Red Blood Count 5.41 M/mcL (3.82-4.97); Red Cell Distribution Width 15.9 % (11.5-14.5); Segmented Neutrophils % 91.3 %
[2016-11-15 05:36] LABS: Ionized Calcium 1.16 mmol/L (1.15-1.35)
[2016-11-15 05:43] LABS: Albumin 2.6 g/dL (3.5-5.0); Calcium 9.8 mg/dL (8.6-10.8); Phosphorous 5.4 mg/dL (2.3-4.7); Potassium 4.2 mEq/L (3.5-4.5)
[2016-11-15 06:01] LABS: Platelet Estimate Normal (Normal)
[2016-11-15] MEDS: Insulin LISPRO 300 UNITS/3 ML VIAL SQ SCH ×4 (06:29→23:48)
--- NOTE | 2016-11-15 06:39 | Pulmonology Progress Note ---
Date of Encounter: 11/15/16 Time of Encounter: 06:39 Assessment and Plan (1) Acute respiratory failure with hypercapnia Current Visit: Yes Status: Acute I spent 35min of Critical Care time with this patient. It involved decision making of high complexity to assess, manipulate, and support vital organ system failure and/or to prevent further life threatening deterioration of the patient' s condition. The time involved in the performance of separately reportable procedures was not counted toward critical care time. Neuro: Intubated and sedated. goal RASS -(2). Does have spontaneous eye opening and movement of all ext's to prompting. Pulm: Severe Hypoxic respiratory failure likely PNA complicated by cardiogenic and non cardiogenic edema (ARDS) in setting of advanced COPD. Vent adjusted now Fio2 =50% and PEEP 10. with acceptable oxygenation and ventilation. CXR stable. Low tidal volume strategy employed. Goal PaO2 >55. Cont BDs and Steroids for COPD Cards: Afib with RVR now sinus cont cardizem PO; HFpEF diuresis. goal 1-2L today as tolerated FEN-GI: PPI prophylaxis cont Bowel regimen increased. Higher residuals today so Enteral feedings on hold. Renal: PRICE multifactorial. Creatinine stable cont diuretic daily RFPs. Replaced lytes per protocol ID: CAP completed ABx. cont to monitor. WBC stable Heme/Onc: H/H stable DVT prophylaxis with subQ heparin Endo: SSi and and cont to monitor glucose Integ: skin care per ICU protocol CODE: [id number] - Prognosis guarded. LUANNE updated at bedside. (2) Acute exacerbation of chronic obstructive pulmonary disease (COPD) Current Visit: Yes Status: Acute (3) Acute kidney injury superimposed on CKD Current Visit: Yes Status: Acute (4) Atrial fibrillation Current Visit: Yes Status: Acute Qualifiers: Atrial fibrillation type: paroxysmal Qualified Code(s): I48.0 - Paroxysmal atrial fibrillation (5) COPD (chronic obstructive pulmonary disease) Current Visit: Yes Status: Acute Qualifiers: COPD type: unspecified COPD Qualified Code(s): J44.9 - Chronic obstructive pulmonary disease, unspecified (6) Cigarette smoker Current Visit: Yes Status: Acute (7) DVT prophylaxis Current Visit: Yes Status: Acute (8) Elevated troponin Current Visit: Yes Status: Acute (9) Goals of care, counseling/discussion Current Visit: Yes Status: Acute (10) Invasive ductal carcinoma of breast Current Visit: Yes Status: Chronic Qualifiers: Laterality: right Qualified Code(s): C50.911 - Malignant neoplasm of unspecified site of right female breast (11) Hypertension Current Visit: No Status: Chronic Qualifiers: Hypertension type: essential hypertension Qualified Code(s): I10 - Essential (primary) hypertension Subjective Principal diagnosis: Respiratory failure Interval history: Dope in sats with PEEP down to 8 now Fio2 50% and PEEP 10 awakens easily off sedation continues to have increase output from OG no other issues overnight. Objective PUL Vital signs: Last Vital Signs Temp 97.8 F 11/15/16 04:00 Pulse 85 11/15/16 06:00 Resp 22 11/15/16 06:01 BP 154/92 11/15/16 06:01 Pulse Ox 90 L 11/15/16 06:01 General appearance: other (confortable sedated on vent opens eyes to voice ) Eyes: nonicteric ENT: other (ETT noted ) Effort: normal Auscultation: bilateral: diminished breath sounds Cardiovascular: regular rate and rhythm Gastrointestinal: hypoactive bowel sounds, soft Extremities: pink and warm, pulses normal, no ischemia or petechiae non-focal exam, other (moves all exts to command ) Ventilator Settings Ventilator Settings: Ventilator Settings, Last 8 Hours Ventilator Mode VC+ Ventilator Mode VC+ Ventilator Mode VC+ Ventilator Mode VC+ Ventilator Mode VC+ Ventilator Mode VC+ Ventilator Tidal Volume 360 Setting Ventilator Tidal Volume 360 Setting Ventilator Tidal Volume 360 Setting Ventilator Tidal Volume 360 Setting Ventilator Tidal Volume 360 Setting Ventilator Tidal Volume 360 Setting Ventilator Tidal Volume 360 Setting Ventilator Respiratory Rate 16 Setting Ventilator Respiratory Rate 16 Setting Ventilator Respiratory Rate 16 Setting Ventilator Respiratory Rate 16 Setting Ventilator Respiratory Rate 16 Setting Ventilator Respiratory Rate 16 Setting Ventilator Respiratory Rate 16 Setting Actual Respiratory Rate 23 Actual Respiratory Rate 20 Actual Respiratory Rate 20 Actual Respiratory Rate 18 Actual Respiratory Rate 21 Actual Respiratory Rate 21 Positive End Expiratory 8 Pressure Positive End Expiratory 8 Pressure Positive End Expiratory 8 Pressure Positive End Expiratory 8 Pressure Positive End Expiratory 8 Pressure Positive End Expiratory 8 Pressure Positive End Expiratory 8 Pressure Peak Inspiratory Airway 16 Pressure Peak Inspiratory Airway 22 Pressure Peak Inspiratory Airway 21 Pressure Peak Inspiratory Airway 21 Pressure Peak Inspiratory Airway 22 Pressure Peak Inspiratory Airway 22 Pressure Results - Laboratory Findings CBC and BMP: 11/15/16 05:19 11/15/16 05:19 ABG ABG pH 7.40 pH Units (7.32-7.45) 11/15/16 04:10 ABG pCO2 62 mmHg (35-45) H 11/15/16 04:10 ABG pO2 58 mmHg (85-104) L 11/15/16 04:10 ABG O2 Saturation 90 % (95-98) L 11/15/16 04:10 PT/INR, D-dimer PT 13.9 Seconds (9.4-12.1) H 11/06/16 17:19 D-Dimer 3921 ng/mLFEU (0-500) H 11/06/16 17:19 Abnormal lab findings: Abnormal lab results RBC 5.41 M/mcL (3.82-4.97) H 11/15/16 05:19 Hct 47.1 % (35.3-44.9) H 11/15/16 05:19 RDW 15.9 % (11.5-14.5) H 11/15/16 05:19 Lymphocytes # 0.1 K/mcL (0.6-4.6) L 11/15/16 05:19 Nucleated RBCs/100 WBC 0.2 /100 WBC (0) H 11/11/16 03:00 Hypersegmented Neuts Present (Not Present) A 11/14/16 03:15 Toxic Granulation Present (Not Present) A 11/14/16 03:15 Large Platelets Present (Not Present) A 11/14/16 03:15 Immature Plt Fraction 6.9 % (1.1-6.1) H 11/06/16 17:19 PT 13.9 Seconds (9.4-12.1) H 11/06/16 17:19 APTT 72.0 Seconds (26.0-36.0) H 11/10/16 02:00 D-Dimer 3921 ng/mLFEU (0-500) H 11/06/16 17:19 ABG pCO2 62 mmHg (35-45) H 11/15/16 04:10 ABG pO2 58 mmHg (85-104) L 11/15/16 04:10 ABG HCO3 38.4 mEQ/L (21-27) H 11/15/16 04:10 ABG Total CO2 40.3 mEq/L (20-26) H 11/15/16 04:10 ABG O2 Saturation 90 % (95-98) L 11/15/16 04:10 ABG Base Excess 11.2 mEq/L (-2.0 to 3.0) H 11/15/16 04:10 Chloride 96 mEq/L (98-109) L 11/15/16 05:19 BUN 79 mg/dL (7-20) H 11/15/16 05:19 Creatinine 1.97 mg/dL (0.57-1.11) H 11/15/16 05:19 Est GFR ( Amer) 31 (> 60) L 11/15/16 05:19 Est GFR (Non-Af Amer) 26 (> 60) L 11/15/16 05:19 BUN/Creatinine Ratio 40 (6-26) H 11/15/16 05:19 Glucose 170 mg/dL (70-99) H 11/15/16 05:19 POC Glucose 183 (58-89) H 11/14/16 23:39 Calculated Osmolality 318 (280-300) H 11/15/16 05:19 Phosphorus 5.4 mg/dL (2.3-4.7) H 11/15/16 05:19 Creatine Kinase 253 Units/L (29-168) H 11/10/16 07:25 Troponin I 0.17 ng/mL (0-0.03) H* 11/13/16 04:16 B-Natriuretic Peptide 2717 pg/mL (0-100) H 11/06/16 17:19 Albumin 2.6 g/dL (3.5-5.0) L 11/15/16 05:19 Globulin 4.2 g/dL (2.4-3.5) H 11/13/16 04:16 Albumin/Globulin Ratio 0.6 (1.1-2.2) L 11/13/16 04:16 Triglycerides 153 mg/dL (< 150) H 11/10/16 07:25 Lipase 132 Units/L (8-78) H 11/10/16 07:25 - Diagnostic Findings Chest x-ray: report reviewed - Clinical Findings Intake & Output: Intake & Output 11/14/16 11/14/16 11/15/16 15:59 23:59 07:59 Intake Total 900 / 900 650 / 650 700 / 700 Output Total 900 / 900 825 / 825 1450 / 1450 Balance 0 / 0 -175 / -175 -750 / -750 Weight 132.137 kg Consult Discharge Plan - Plan Referrals: Kay Palmer [Primary Care Provider] -
[2016-11-15] MEDS: Nicotine 21 MG PATCH.TD24 TD SCH (07:19)
[2016-11-15] MEDS: Pantoprazole 40 MG VIAL IVP SCH (07:19)
[2016-11-15] MEDS: Aspirin 81 MG TAB.CHEW GTUBE SCH (07:19)
[2016-11-15] MEDS: Lacri-Lube 3.5 GM TUBE BOTH EYES SCH ×2 (07:19→20:26)
[2016-11-15] MEDS: Chlorhexidine Rinse 15 ML MOUTHWASH MM SCH ×2 (07:19→20:26)
[2016-11-15] MEDS: Budesonide/Formoterol 160/4.5 MDI IH SCH ×2 (07:27→20:36)
[2016-11-15 17:34] LABS: Albumin 2.5 g/dL (3.5-5.0); Calcium 9.4 mg/dL (8.6-10.8); Phosphorous 5.5 mg/dL (2.3-4.7)
[2016-11-16] MEDS: Ipratropium/Albuterol Neb 3 ML IH SCH ×6 (00:28→20:25)
[2016-11-16] MEDS: MethylPREDNISolone 40 MG/ML VIAL IVP SCH ×2 (02:16→08:22)
[2016-11-16] MEDS: *HR* Heparin 5,000 UNIT/ML VIAL SQ SCH ×3 (02:16→18:20)
[2016-11-16] MEDS: Furosemide 40 MG/4 ML VIAL IVP SCH ×4 (03:38→21:15)
[2016-11-16 03:40] LABS: Hematocrit 44.5 % (35.3-44.9); Hemoglobin 14.3 g/dL (11.5-15.4); Mean Corpuscular HGB Conc 32.1 g/dL (31.6-35.5); Mean Corpuscular Hemoglobin 28.4 pg (28.0-33.3); Mean Corpuscular Volume 88.5 fL (83.0-100.0); Mean Platelet Volume 11.4 fL (9.4-12.4); Platelet Count 191 K/mcL (140-400); Red Blood Count 5.03 M/mcL (3.82-4.97); Red Cell Distribution Width 15.9 % (11.5-14.5)
[2016-11-16 03:57] LABS: Ionized Calcium 1.14 mmol/L (1.15-1.35)
[2016-11-16 04:03] LABS: Calcium 9.3 mg/dL (8.6-10.8); Magnesium 1.8 mg/dL (1.6-2.6); Phosphorous 7.1 mg/dL (2.3-4.7); Potassium 4.2 mEq/L (3.5-4.5)
[2016-11-16 04:23] LABS: Lymphocytes # 0.2 K/mcL (0.6-4.6); Monocytes # 0.6 K/mcL (0.0-1.3); Neutrophils # 8.4 K/mcL (1.6-8.9)
[2016-11-16 04:24] LABS: Large Platelets Present (Not Present); Platelet Estimate Normal (Normal)
[2016-11-16 05:01] LABS: ABG Base Excess 9.9 mEq/L (-2.0 to 3.0); ABG HCO3 39.5 mEQ/L (21-27); ABG Oxygen Saturation 91 % (95-98); ABG PH 7.33 pH Units (7.32-7.45); ABG PO2 66 mmHg (85-104); ABG TCO2 41.8 mEq/L (20-26)
[2016-11-16 05:02] LABS: ABG PCO2 75 mmHg (35-45); Blood Gas FiO2 50 %
[2016-11-16] MEDS: dilTIAZem HCl 60 MG TABLET PO SCH ×3 (05:15→18:20)
[2016-11-16] MEDS: Insulin LISPRO 300 UNITS/3 ML VIAL SQ SCH ×3 (05:16→18:20)
[2016-11-16] MEDS: Budesonide/Formoterol 160/4.5 MDI IH SCH ×2 (07:32→20:25)
[2016-11-16] MEDS: Aspirin 81 MG TAB.CHEW GTUBE SCH (08:22)
[2016-11-16] MEDS: Pantoprazole 40 MG VIAL IVP SCH (08:22)
[2016-11-16] MEDS: Chlorhexidine Rinse 15 ML MOUTHWASH MM SCH ×2 (08:22→21:14)
[2016-11-16] MEDS: Nicotine 21 MG PATCH.TD24 TD SCH (08:23)
[2016-11-16] MEDS: Lacri-Lube 3.5 GM TUBE BOTH EYES SCH ×2 (08:23→21:15)
--- NOTE | 2016-11-16 11:44 | Pulmonology Progress Note ---
Date of Encounter: 11/16/16 Time of Encounter: 11:42 Assessment and Plan (1) Acute respiratory failure with hypercapnia Current Visit: Yes Status: Acute Patient intubated and sedated. Spontaneous eye opening and movement of all extremities on command Acute respiratory failure likely secondary to pneumonia in setting of advance COPD. Possible cardiogenic vs noncardiogenic edema complicating respiratory failure. Vent settings at FiO2 =50% and PEEP 12 CXR stable compared to prior. Cultures are negative. Discontinued methylprednisone, start prednisone 40mg qd. Continue breathing treatments. Trial hold lasix due worsening kidney function. (2) Acute exacerbation of chronic obstructive pulmonary disease (COPD) Current Visit: Yes Status: Acute per assessment above (3) Acute kidney injury superimposed on CKD Current Visit: Yes Status: Acute Cr increased to 2.39 from 2.09 Continue electrolyte protocol. Hold Lasix. (4) Cigarette smoker Current Visit: Yes Status: Acute (5) Atrial fibrillation Current Visit: Yes Status: Acute History of afib with rvr. Currently sinus rhythm. Continue PO cardizem. Qualifiers: Atrial fibrillation type: paroxysmal Qualified Code(s): I48.0 - Paroxysmal atrial fibrillation (6) Elevated troponin Current Visit: Yes Status: Acute (7) Goals of care, counseling/discussion Current Visit: Yes Status: Acute Goals of care and counseling discussed. Plan to have discussion with family. Continue tube feeds to goal. (8) Invasive ductal carcinoma of breast Current Visit: Yes Status: Chronic Qualifiers: Laterality: right Qualified Code(s): C50.911 - Malignant neoplasm of unspecified site of right female breast (9) Hypertension Current Visit: Yes Status: Acute Bp controlled and stable. Qualifiers: Hypertension type: essential hypertension Qualified Code(s): I10 - Essential (primary) hypertension (10) DVT prophylaxis Current Visit: Yes Status: Acute heparin sq for dvt ppx Subjective Principal diagnosis: Respiratory failure Interval history: PEEP increased to 12, FiO2 at 50% awakens easily off sedation no other issues overnight. Objective PUL Vital signs: Last Vital Signs Temp 98.3 F 11/16/16 07:19 Pulse 106 11/16/16 09:31 Resp 16 11/16/16 09:31 BP 95/51 11/16/16 09:31 Pulse Ox 90 L 11/16/16 09:31 General appearance: other (comfortably sedated on vent, opens eyes to voice, moves all extremities on command) Eyes: nonicteric Effort: normal Auscultation: bilateral: diminished breath sounds Cardiovascular: regular rate and rhythm Gastrointestinal: hypoactive bowel sounds, non-distended Integumentary: normal Extremities: no cyanosis, pink and warm, pulses normal Musculoskeletal: no deformities non-focal exam, other (moves all extremities on command) Ventilator Settings Ventilator Settings: Ventilator Settings, Last 8 Hours Ventilator Mode VC+ Ventilator Mode VC+ Ventilator Mode VC+ Ventilator Mode VC+ Ventilator Mode VC+ Ventilator Mode VC+ Ventilator Mode VC+ Ventilator Mode VC+ Ventilator Mode VC+ Ventilator Tidal Volume 360 Setting Ventilator Tidal Volume 360 Setting Ventilator Tidal Volume 360 Setting Ventilator Tidal Volume 360 Setting Ventilator Tidal Volume 360 Setting Ventilator Tidal Volume 360 Setting Ventilator Tidal Volume 360 Setting Ventilator Tidal Volume 360 Setting Ventilator Tidal Volume 360 Setting Ventilator Respiratory Rate 16 Setting Ventilator Respiratory Rate 16 Setting Ventilator Respiratory Rate 16 Setting Ventilator Respiratory Rate 16 Setting Ventilator Respiratory Rate 16 Setting Ventilator Respiratory Rate 16 Setting Ventilator Respiratory Rate 20 Setting Ventilator Respiratory Rate 16 Setting Ventilator Respiratory Rate 16 Setting Actual Respiratory Rate 16 Actual Respiratory Rate 16 Actual Respiratory Rate 17 Actual Respiratory Rate 17 Actual Respiratory Rate 17 Actual Respiratory Rate 17 Actual Respiratory Rate 16 Actual Respiratory Rate 16 Positive End Expiratory 12 Pressure Positive End Expiratory 12 Pressure Positive End Expiratory 12 Pressure Positive End Expiratory 12 Pressure Positive End Expiratory 12 Pressure Positive End Expiratory 10 Pressure Positive End Expiratory 10 Pressure Positive End Expiratory 10 Pressure Positive End Expiratory 10 Pressure Peak Inspiratory Airway 23 Pressure Peak Inspiratory Airway 24 Pressure Peak Inspiratory Airway 24 Pressure Peak Inspiratory Airway 22 Pressure Peak Inspiratory Airway 25 Pressure Peak Inspiratory Airway 21 Pressure Peak Inspiratory Airway 22 Pressure Results - Laboratory Findings CBC and BMP: 11/16/16 03:25 11/16/16 03:25 ABG ABG pH 7.33 pH Units (7.32-7.45) 11/16/16 04:50 ABG pCO2 75 mmHg (35-45) H* 11/16/16 04:50 ABG pO2 66 mmHg (85-104) L 11/16/16 04:50 ABG O2 Saturation 91 % (95-98) L 11/16/16 04:50 PT/INR, D-dimer PT 13.9 Seconds (9.4-12.1) H 11/06/16 17:19 D-Dimer 3921 ng/mLFEU (0-500) H 11/06/16 17:19 Abnormal lab findings: Abnormal lab results RBC 5.03 M/mcL (3.82-4.97) H 11/16/16 03:25 RDW 15.9 % (11.5-14.5) H 11/16/16 03:25 Lymphocytes # 0.2 K/mcL (0.6-4.6) L 11/16/16 03:25 Nucleated RBCs/100 WBC 0.2 /100 WBC (0) H 11/11/16 03:00 Hypersegmented Neuts Present (Not Present) A 11/14/16 03:15 Toxic Granulation Present (Not Present) A 11/14/16 03:15 Large Platelets Present (Not Present) A 11/16/16 03:25 Immature Plt Fraction 6.9 % (1.1-6.1) H 11/06/16 17:19 PT 13.9 Seconds (9.4-12.1) H 11/06/16 17:19 APTT 72.0 Seconds (26.0-36.0) H 11/10/16 02:00 D-Dimer 3921 ng/mLFEU (0-500) H 11/06/16 17:19 ABG pCO2 75 mmHg (35-45) H* 11/16/16 04:50 ABG pO2 66 mmHg (85-104) L 11/16/16 04:50 ABG HCO3 39.5 mEQ/L (21-27) H 11/16/16 04:50 ABG Total CO2 41.8 mEq/L (20-26) H 11/16/16 04:50 ABG O2 Saturation 91 % (95-98) L 11/16/16 04:50 ABG Base Excess 9.9 mEq/L (-2.0 to 3.0) H 11/16/16 04:50 Chloride 96 mEq/L (98-109) L 11/16/16 03:25 Carbon Dioxide 30 mEq/L (19-29) H 11/16/16 03:25 BUN 100 mg/dL (7-20) H 11/16/16 03:25 Creatinine 2.39 mg/dL (0.57-1.11) H 11/16/16 03:25 Est GFR ( Amer) 25 (> 60) L 11/16/16 03:25 Est GFR (Non-Af Amer) 21 (> 60) L 11/16/16 03:25 BUN/Creatinine Ratio 42 (6-26) H 11/16/16 03:25 Glucose 190 mg/dL (70-99) H 11/16/16 03:25 POC Glucose 166 (58-89) H 11/15/16 23:31 Calculated Osmolality 328 (280-300) H 11/16/16 03:25 Ionized Calcium 1.14 mmol/L (1.15-1.35) L 11/16/16 03:25 Phosphorus 7.1 mg/dL (2.3-4.7) H 11/16/16 03:25 Creatine Kinase 253 Units/L (29-168) H 11/10/16 07:25 Troponin I 0.17 ng/mL (0-0.03) H* 11/13/16 04:16 B-Natriuretic Peptide 2717 pg/mL (0-100) H 11/06/16 17:19 Albumin 2.5 g/dL (3.5-5.0) L 11/15/16 17:10 Globulin 4.2 g/dL (2.4-3.5) H 11/13/16 04:16 Albumin/Globulin Ratio 0.6 (1.1-2.2) L 11/13/16 04:16 Triglycerides 153 mg/dL (< 150) H 11/10/16 07:25 Lipase 132 Units/L (8-78) H 11/10/16 07:25 - Clinical Findings Intake & Output: Intake & Output 11/15/16 11/16/16 11/16/16 23:59 07:59 15:59 Intake Total 230 / 230 363 / 363 100 / 100 Output Total 550 / 550 375 / 375 Balance -320 / -320 -12 / -12 100 / 100 Weight 130 kg Consult Discharge Plan - Plan Referrals: Kay Palmer [Primary Care Provider] -
[2016-11-16] MEDS: FentaNYL (PF) 3,000 MCG in 0.9 % Sodium Chloride 240 ML IVC SCH ×2 (12:58→20:25)
--- NOTE | 2016-11-16 14:26 | Palliative Progress Note ---
Date of Encounter: 11/16/16 Time of Encounter: 13:00 - Assessment and plan (1) Pain Current Visit: Yes Status: Acute Assessment and plan: Remains on Fentanyl per ICU protocol. Will monitor. (2) Goals of care, counseling/discussion Current Visit: Yes Status: Acute Assessment and plan: No family at bedside. Telephone conversation with , Alexandru, who expresses he is under a great deal of stress from family as well as pt being so ill. He is feeling weak and may not come in today. Updated on clinical status. At this point, plan is to compassionately extubated on Wednesday early afternoon, with no plans of re-intubating. Will continue to follow. D/W Dr. Jean. (3) Acute exacerbation of chronic obstructive pulmonary disease (COPD) Current Visit: Yes Status: Acute (4) PRICE (acute kidney injury) Current Visit: Yes Status: Acute (5) Breast cancer Current Visit: Yes Status: Acute Qualifiers: Breast location: unspecified site of breast Patient gender: female Laterality: unspecified laterality Qualified Code(s): C50.919 - Malignant neoplasm of unspecified site of unspecified female breast - Time Spent With Patient Total time spent is greater than 50% in coordination of care (as documented) at patient's floor/unit and/or counseling patient: 25 - 35 minutes - Subjective Interval history: Patient remains on vent, intubated and lightly sedated. She has eyes open, can nod slightly yes and no. No family present. Appears relaxed and in no distress. - Constitutional Vitals: Abnormal lab results RBC 5.03 M/mcL (3.82-4.97) H 11/16/16 03:25 RDW 15.9 % (11.5-14.5) H 11/16/16 03:25 Lymphocytes # 0.2 K/mcL (0.6-4.6) L 11/16/16 03:25 Nucleated RBCs/100 WBC 0.2 /100 WBC (0) H 11/11/16 03:00 Hypersegmented Neuts Present (Not Present) A 11/14/16 03:15 Toxic Granulation Present (Not Present) A 11/14/16 03:15 Large Platelets Present (Not Present) A 11/16/16 03:25 Immature Plt Fraction 6.9 % (1.1-6.1) H 11/06/16 17:19 PT 13.9 Seconds (9.4-12.1) H 11/06/16 17:19 APTT 72.0 Seconds (26.0-36.0) H 11/10/16 02:00 D-Dimer 3921 ng/mLFEU (0-500) H 11/06/16 17:19 ABG pCO2 75 mmHg (35-45) H* 11/16/16 04:50 ABG pO2 66 mmHg (85-104) L 11/16/16 04:50 ABG HCO3 39.5 mEQ/L (21-27) H 11/16/16 04:50 ABG Total CO2 41.8 mEq/L (20-26) H 11/16/16 04:50 ABG O2 Saturation 91 % (95-98) L 11/16/16 04:50 ABG Base Excess 9.9 mEq/L (-2.0 to 3.0) H 11/16/16 04:50 Chloride 96 mEq/L (98-109) L 11/16/16 03:25 Carbon Dioxide 30 mEq/L (19-29) H 11/16/16 03:25 BUN 100 mg/dL (7-20) H 11/16/16 03:25 Creatinine 2.39 mg/dL (0.57-1.11) H 11/16/16 03:25 Est GFR ( Amer) 25 (> 60) L 11/16/16 03:25 Est GFR (Non-Af Amer) 21 (> 60) L 11/16/16 03:25 BUN/Creatinine Ratio 42 (6-26) H 11/16/16 03:25 Glucose 190 mg/dL (70-99) H 11/16/16 03:25 POC Glucose 166 (58-89) H 11/15/16 23:31 Calculated Osmolality 328 (280-300) H 11/16/16 03:25 Ionized Calcium 1.14 mmol/L (1.15-1.35) L 11/16/16 03:25 Phosphorus 7.1 mg/dL (2.3-4.7) H 11/16/16 03:25 Creatine Kinase 253 Units/L (29-168) H 11/10/16 07:25 Troponin I 0.17 ng/mL (0-0.03) H* 11/13/16 04:16 B-Natriuretic Peptide 2717 pg/mL (0-100) H 11/06/16 17:19 Albumin 2.5 g/dL (3.5-5.0) L 11/15/16 17:10 Globulin 4.2 g/dL (2.4-3.5) H 11/13/16 04:16 Albumin/Globulin Ratio 0.6 (1.1-2.2) L 11/13/16 04:16 Triglycerides 153 mg/dL (< 150) H 11/10/16 07:25 Lipase 132 Units/L (8-78) H 11/10/16 07:25 General appearance: Present: no acute distress - Respiratory Additional comments: Breath sounds course throughout. Vent settings still with PEEP 12 and 50% Fio2. - GI/Abdominal GI/Abdominal exam: Present: diminished bowel sounds, soft - Additional comments: Urine clear yellow - Extremities Exam Additional comments: Generalized edema to all extremities - Neurological Exam Neurological exam: Present: alert Additional comments: Can nod head yes and no to some questions - Skin Skin exam: Present: dry, pallor, warm Palliative Quality Palliative Quality: Screen for Code Status: Yes (Further screening awaiting family.), Screen for Goals of Care: Yes (Further screening awaiting family.), Screen for Pain: Yes, If Pain Regimen Started, Initiate Bowel Regimen: NA, Screen for Nausea/Vomitting: Yes Code Status: 11/07/16 04:31 CODE [Resuscitation Status: Active] [RES] Routine Comment: Resuscitation Status: Full Code CODE [Resuscitation Status: Active] [RES] Routine Comment: Resuscitation Status: DNR-Comfort Care-Arrest - Labs CBC & Chem 7: 11/16/16 03:25 11/16/16 03:25 Labs: Laboratory Results - last 24 hr 11/15/16 11/15/16 11/15/16 11:54 17:10 18:34 WBC RBC Hgb Hct MCV MCH MCHC RDW Plt Count MPV Seg Neutrophils % Band Neutrophils % Lymphocytes % Monocytes % Neutrophils # Lymphocytes # Monocytes # Platelet Estimate Large Platelets ABG pH ABG pCO2 ABG pO2 ABG HCO3 ABG Total CO2 ABG O2 Saturation ABG Base Excess Blood Gas Modality Inspired O2 Sodium 142 Potassium 4.0 Chloride 96 L Carbon Dioxide 30 H BUN 90 H Creatinine 2.05 H Est GFR ( Amer) 30 L Est GFR (Non-Af Amer) 25 L BUN/Creatinine Ratio 44 H Glucose 193 H POC Glucose 164 H 173 H Calculated Osmolality 327 H Calcium 9.4 Ionized Calcium Phosphorus 5.5 H Magnesium Albumin 2.5 L 11/15/16 11/16/16 11/16/16 23:31 03:25 03:25 WBC 9.1 RBC 5.03 H Hgb 14.3 Hct 44.5 MCV 88.5 MCH 28.4 MCHC 32.1 RDW 15.9 H Plt Count 191 MPV 11.4 Seg Neutrophils % 90.0 Band Neutrophils % 2.0 Lymphocytes % 2.0 Monocytes % 6.0 Neutrophils # 8.4 Lymphocytes # 0.2 L Monocytes # 0.6 Platelet Estimate Normal Large Platelets Present A ABG pH ABG pCO2 ABG pO2 ABG HCO3 ABG Total CO2 ABG O2 Saturation ABG Base Excess Blood Gas Modality Inspired O2 Sodium 141 Potassium 4.2 Chloride 96 L Carbon Dioxide 30 H BUN 100 H Creatinine 2.39 H Est GFR ( Amer) 25 L Est GFR (Non-Af Amer) 21 L BUN/Creatinine Ratio 42 H Glucose 190 H POC Glucose 166 H Calculated Osmolality 328 H Calcium 9.3 Ionized Calcium 1.14 L Phosphorus 7.1 H Magnesium 1.8 Albumin 11/16/16 04:50 WBC RBC Hgb Hct MCV MCH MCHC RDW Plt Count MPV Seg Neutrophils % Band Neutrophils % Lymphocytes % Monocytes % Neutrophils # Lymphocytes # Monocytes # Platelet Estimate Large Platelets ABG pH 7.33 ABG pCO2 75 H* ABG pO2 66 L ABG HCO3 39.5 H ABG Total CO2 41.8 H ABG O2 Saturation 91 L ABG Base Excess 9.9 H Blood Gas Modality VC+ Inspired O2 50 Sodium Potassium Chloride Carbon Dioxide BUN Creatinine Est GFR ( Amer) Est GFR (Non-Af Amer) BUN/Creatinine Ratio Glucose POC Glucose Calculated Osmolality Calcium Ionized Calcium Phosphorus Magnesium Albumin - Impressions Impressions Chest X-Ray 11/16/16 07:34 IMPRESSION: No significant interval change. D/ / Morris Oleary MD / Morris Oleary MD Interpreting Provider: Morris Oleary MD - ABG Interpretation ABG results: ABG ABG pH 7.33 pH Units (7.32-7.45) 11/16/16 04:50 ABG pCO2 75 mmHg (35-45) H* 11/16/16 04:50 ABG pO2 66 mmHg (85-104) L 11/16/16 04:50 ABG O2 Saturation 91 % (95-98) L 11/16/16 04:50 PT/INR, D-dimer PT 13.9 Seconds (9.4-12.1) H 11/06/16 17:19 D-Dimer 3921 ng/mLFEU (0-500) H 11/06/16 17:19 Consult Discharge Plan - Plan Referrals: Kay Palmer [Primary Care Provider] -
[2016-11-16] MEDS: Artificial Tears SOLN 15 ML BOTTLE BOTH EYES SCH ×2 (16:41→21:14)
[2016-11-17] MEDS: Insulin LISPRO 300 UNITS/3 ML VIAL SQ SCH ×5 (00:08→23:50)
[2016-11-17] MEDS: dilTIAZem HCl 60 MG TABLET PO SCH ×5 (00:08→23:49)
[2016-11-17] MEDS: Ipratropium/Albuterol Neb 3 ML IH SCH ×7 (00:13→23:59)
[2016-11-17] MEDS: *HR* Heparin 5,000 UNIT/ML VIAL SQ SCH ×3 (03:29→17:59)
[2016-11-17] MEDS: Furosemide 40 MG/4 ML VIAL IVP SCH (03:30)
[2016-11-17] MEDS: FentaNYL (PF) 3,000 MCG in 0.9 % Sodium Chloride 240 ML IVC SCH ×2 (03:30→18:38)
[2016-11-17 04:34] LABS: Basophils % 0.1 %; Eosinophils % 0.1 %; Hematocrit 41.5 % (35.3-44.9); Immature Granulocytes % 1.3 % (0-4); Lymphocytes # 0.3 K/mcL (0.6-4.6); Lymphocytes % 3.4 %; Mean Corpuscular HGB Conc 31.3 g/dL (31.6-35.5); Mean Corpuscular Hemoglobin 27.8 pg (28.0-33.3); Mean Corpuscular Volume 88.9 fL (83.0-100.0); Mean Platelet Volume 11.7 fL (9.4-12.4); Monocytes % 11.1 %; Neutrophils # 7.3 K/mcL (1.6-8.9); Platelet Count 166 K/mcL (140-400); Red Blood Count 4.67 M/mcL (3.82-4.97); Red Cell Distribution Width 15.9 % (11.5-14.5)
[2016-11-17 04:45] LABS: ABG Base Excess 8.3 mEq/L (-2.0 to 3.0); ABG HCO3 37.1 mEQ/L (21-27); ABG Oxygen Saturation 95 % (95-98); ABG PH 7.32 pH Units (7.32-7.45); ABG PO2 82 mmHg (85-104); ABG TCO2 39.3 mEq/L (20-26)
[2016-11-17 04:46] LABS: Blood Gas FiO2 50 %
[2016-11-17 04:47] LABS: ABG PCO2 72 mmHg (35-45)
[2016-11-17 04:59] LABS: Albumin 2.4 g/dL (3.5-5.0); Albumin/Globulin Ratio 0.8 (1.1-2.2); Bilirubin,Total 0.6 mg/dL (0.2-1.2); Calcium 8.8 mg/dL (8.6-10.8); Globulin 2.9 g/dL (2.4-3.5); Magnesium 2.6 mg/dL (1.6-2.6); Phosphorous 7.7 mg/dL (2.3-4.7); Potassium 4.2 mEq/L (3.5-4.5); Total Protein 5.3 g/dL (6.0-8.3)
--- NOTE | 2016-11-17 07:29 | Pulmonology Progress Note ---
Date of Encounter: 11/17/16 Time of Encounter: 07:27 Assessment and Plan (1) Acute respiratory failure with hypercapnia Current Visit: Yes Status: Acute Patient intubated and sedated. Spontaneous eye opening and movement of all extremities on command Acute respiratory failure likely secondary to pneumonia in setting of advanced COPD. Vent settings at FiO2 =50% and PEEP 12. Soft upper extremities restraints ordered. Attempt breathing trial to determine comfort measure med needs. CXR stable compared to prior. Cultures are negative. Continue prednisone 40mg qd. Continue breathing treatments. (2) Acute exacerbation of chronic obstructive pulmonary disease (COPD) Current Visit: Yes Status: Acute per assessment above (3) Acute kidney injury superimposed on CKD Current Visit: Yes Status: Acute Cr increased to 3.1 from 2.39 Continue electrolyte protocol. (4) Cigarette smoker Current Visit: Yes Status: Acute (5) Atrial fibrillation Current Visit: Yes Status: Acute Currently sinus rhythm. Continue PO cardizem. Qualifiers: Atrial fibrillation type: paroxysmal Qualified Code(s): I48.0 - Paroxysmal atrial fibrillation (6) Elevated troponin Current Visit: Yes Status: Acute (7) Goals of care, counseling/discussion Current Visit: Yes Status: Acute Goals of care and counseling discussed. Palliative care note reviewed. Continue tube feeds to goal. Breathing trial to determine comfort measure med needs Plan to extubeate without reintubation on Wednesday. (8) Invasive ductal carcinoma of breast Current Visit: Yes Status: Chronic Qualifiers: Laterality: right Qualified Code(s): C50.911 - Malignant neoplasm of unspecified site of right female breast (9) Hypertension Current Visit: Yes Status: Acute Bp controlled and stable. Qualifiers: Hypertension type: essential hypertension Qualified Code(s): I10 - Essential (primary) hypertension (10) DVT prophylaxis Current Visit: Yes Status: Acute heparin sq for dvt ppx Subjective Principal diagnosis: Respiratory failure Interval history: Awakens easily off sedation, moves all extremities when prompted, no issues overnight. PEEP at 12, FiO2 at 50% Objective PUL Vital signs: Last Vital Signs Temp 98.3 F 11/17/16 04:00 Pulse 95 11/17/16 06:00 Resp 18 11/17/16 06:00 BP 127/58 11/17/16 06:00 Pulse Ox 93 L 11/17/16 06:00 General appearance: other (comfortably intubated and sedated, opens eyes spontaneously, moves extremities when prompted.) Eyes: nonicteric Neck: supple Effort: normal Auscultation: bilateral: rhonchi (mild) Cardiovascular: regular rate and rhythm Gastrointestinal: hypoactive bowel sounds, soft, non-distended Integumentary: normal Extremities: no cyanosis, pink and warm, edema Musculoskeletal: no deformities non-focal exam, pupils equal and round Ventilator Settings Ventilator Settings: Ventilator Settings, Last 8 Hours Ventilator Mode VC+ Ventilator Mode VC+ Ventilator Mode VC+ Ventilator Mode VC+ Ventilator Mode VC+ Ventilator Mode VC+ Ventilator Mode VC+ Ventilator Mode VC+ Ventilator Mode VC+ Ventilator Mode VC+ Ventilator Mode VC+ Ventilator Tidal Volume 360 Setting Ventilator Tidal Volume 360 Setting Ventilator Tidal Volume 360 Setting Ventilator Tidal Volume 360 Setting Ventilator Tidal Volume 360 Setting Ventilator Tidal Volume 360 Setting Ventilator Tidal Volume 360 Setting Ventilator Tidal Volume 360 Setting Ventilator Tidal Volume 360 Setting Ventilator Tidal Volume 360 Setting Ventilator Tidal Volume 360 Setting Ventilator Respiratory Rate 16 Setting Ventilator Respiratory Rate 16 Setting Ventilator Respiratory Rate 16 Setting Ventilator Respiratory Rate 16 Setting Ventilator Respiratory Rate 16 Setting Ventilator Respiratory Rate 16 Setting Ventilator Respiratory Rate 16 Setting Ventilator Respiratory Rate 16 Setting Ventilator Respiratory Rate 16 Setting Ventilator Respiratory Rate 16 Setting Ventilator Respiratory Rate 16 Setting Actual Respiratory Rate 18 Actual Respiratory Rate 16 Actual Respiratory Rate 17 Actual Respiratory Rate 17 Actual Respiratory Rate 17 Actual Respiratory Rate 19 Actual Respiratory Rate 16 Actual Respiratory Rate 17 Actual Respiratory Rate 18 Actual Respiratory Rate 17 Positive End Expiratory 12 Pressure Positive End Expiratory 12 Pressure Positive End Expiratory 12 Pressure Positive End Expiratory 12 Pressure Positive End Expiratory 12 Pressure Positive End Expiratory 12 Pressure Positive End Expiratory 12 Pressure Positive End Expiratory 12 Pressure Positive End Expiratory 12 Pressure Positive End Expiratory 12 Pressure Positive End Expiratory 12 Pressure Peak Inspiratory Airway 24 Pressure Peak Inspiratory Airway 23 Pressure Peak Inspiratory Airway 23 Pressure Peak Inspiratory Airway 22 Pressure Peak Inspiratory Airway 22 Pressure Peak Inspiratory Airway 23 Pressure Peak Inspiratory Airway 24 Pressure Peak Inspiratory Airway 22 Pressure Peak Inspiratory Airway 24 Pressure Peak Inspiratory Airway 24 Pressure Results - Laboratory Findings CBC and BMP: 11/17/16 04:11 11/17/16 04:11 ABG ABG pH 7.32 pH Units (7.32-7.45) 11/17/16 04:30 ABG pCO2 72 mmHg (35-45) H* 11/17/16 04:30 ABG pO2 82 mmHg (85-104) L 11/17/16 04:30 ABG O2 Saturation 95 % (95-98) 11/17/16 04:30 PT/INR, D-dimer PT 13.9 Seconds (9.4-12.1) H 11/06/16 17:19 D-Dimer 3921 ng/mLFEU (0-500) H 11/06/16 17:19 Abnormal lab findings: Abnormal lab results MCH 27.8 pg (28.0-33.3) L 11/17/16 04:11 MCHC 31.3 g/dL (31.6-35.5) L 11/17/16 04:11 RDW 15.9 % (11.5-14.5) H 11/17/16 04:11 Lymphocytes # 0.3 K/mcL (0.6-4.6) L 11/17/16 04:11 Nucleated RBCs/100 WBC 0.2 /100 WBC (0) H 11/11/16 03:00 Hypersegmented Neuts Present (Not Present) A 11/14/16 03:15 Toxic Granulation Present (Not Present) A 11/14/16 03:15 Large Platelets Present (Not Present) A 11/16/16 03:25 Immature Plt Fraction 6.9 % (1.1-6.1) H 11/06/16 17:19 PT 13.9 Seconds (9.4-12.1) H 11/06/16 17:19 APTT 72.0 Seconds (26.0-36.0) H 11/10/16 02:00 D-Dimer 3921 ng/mLFEU (0-500) H 11/06/16 17:19 ABG pCO2 72 mmHg (35-45) H* 11/17/16 04:30 ABG pO2 82 mmHg (85-104) L 11/17/16 04:30 ABG HCO3 37.1 mEQ/L (21-27) H 11/17/16 04:30 ABG Total CO2 39.3 mEq/L (20-26) H 11/17/16 04:30 ABG Base Excess 8.3 mEq/L (-2.0 to 3.0) H 11/17/16 04:30 Chloride 97 mEq/L (98-109) L 11/17/16 04:11 Carbon Dioxide 31 mEq/L (19-29) H 11/17/16 04:11 BUN 116 mg/dL (7-20) H 11/17/16 04:11 Creatinine 3.10 mg/dL (0.57-1.11) H 11/17/16 04:11 Est GFR ( Amer) 19 (> 60) L 11/17/16 04:11 Est GFR (Non-Af Amer) 15 (> 60) L 11/17/16 04:11 BUN/Creatinine Ratio 37 (6-26) H 11/17/16 04:11 Glucose 148 mg/dL (70-99) H 11/17/16 04:11 POC Glucose 155 (58-89) H 11/16/16 23:44 Calculated Osmolality 330 (280-300) H 11/17/16 04:11 Ionized Calcium 1.11 mmol/L (1.15-1.35) L 11/17/16 04:17 Phosphorus 7.7 mg/dL (2.3-4.7) H 11/17/16 04:11 Creatine Kinase 253 Units/L (29-168) H 11/10/16 07:25 Troponin I 0.17 ng/mL (0-0.03) H* 11/13/16 04:16 B-Natriuretic Peptide 2717 pg/mL (0-100) H 11/06/16 17:19 Serum Total Protein 5.3 g/dL (6.0-8.3) L 11/17/16 04:11 Albumin 2.4 g/dL (3.5-5.0) L 11/17/16 04:11 Albumin/Globulin Ratio 0.8 (1.1-2.2) L 11/17/16 04:11 Triglycerides 153 mg/dL (< 150) H 11/10/16 07:25 Lipase 132 Units/L (8-78) H 11/10/16 07:25 - Clinical Findings Intake & Output: Intake & Output 11/16/16 11/16/16 11/17/16 15:59 23:59 07:59 Intake Total 340 / 340 340 / 340 606 / 606 Output Total 200 / 200 325 / 325 250 / 250 Balance 140 / 140 356 / 356 Weight 130.09 kg Consult Discharge Plan - Plan Referrals: Kay Palmer [Primary Care Provider] -
[2016-11-17] MEDS: Budesonide/Formoterol 160/4.5 MDI IH SCH ×2 (07:53→19:42)
[2016-11-17] MEDS: Lacri-Lube 3.5 GM TUBE BOTH EYES SCH ×2 (10:20→20:35)
[2016-11-17] MEDS: Artificial Tears SOLN 15 ML BOTTLE BOTH EYES SCH ×4 (10:42→20:35)
[2016-11-17] MEDS: Aspirin 81 MG TAB.CHEW GTUBE SCH (10:43)
[2016-11-17] MEDS: Chlorhexidine Rinse 15 ML MOUTHWASH MM SCH ×2 (10:43→20:35)
[2016-11-17] MEDS: Pantoprazole 40 MG VIAL IVP SCH (10:43)
[2016-11-17] MEDS: Nicotine 21 MG PATCH.TD24 TD SCH (10:43)
[2016-11-17] MEDS: predniSONE 20 MG TABLET PO SCH (10:58)
--- NOTE | 2016-11-17 11:37 | Palliative Progress Note ---
Date of Encounter: 11/17/16 Time of Encounter: 09:55 - Assessment and plan (1) Pain Current Visit: Yes Status: Acute Assessment and plan: Well-controlled on fentanyl drip No changes today. Continue current medications today 11/11/2016 no changes 11/13 No changes on 11/17 (2) Dyspnea Current Visit: Yes Status: Acute Assessment and plan: She is now off paralysis. Patient does however have an increasing FiO2 requirement on 40 Patient is still not satting above 88-89% however are the best vent settings thus far. Patient's PEEP continues to 12. Or at times higher. When trial today. Qualifiers: Dyspnea type: shortness of breath Qualified Code(s): R06.02 - Shortness of breath (3) Acute exacerbation of chronic obstructive pulmonary disease (COPD) Current Visit: Yes Status: Acute Assessment and plan: still on vent plan per pulmonary team. no changes 11/13 (4) Acute respiratory failure with hypercapnia Current Visit: Yes Status: Acute Assessment and plan: cont current meds and treatment plan no changes 11/13 PEEP still at 12, FiO2 at its lowest setting thus far in this hospitalization of 40% O2 sats still at about 8889%. Trial today's planned. (5) Breast cancer Current Visit: No Status: Acute Assessment and plan: History turn to cancer Center for continued care of the patient if she is pulled through this. no changes 11/13 Dr Mckenna is aware No changes. Qualifiers: Breast location: upper outer quadrant of breast Patient gender: female Laterality: right Qualified Code(s): C50.411 - Malignant neoplasm of upper- outer quadrant of right female breast (6) Goals of care, counseling/discussion Current Visit: Yes Status: Acute Assessment and plan: DNRCCA, patient is already intubated area all plan is to do aggressive therapy to try to get her off the ventilator, however there would be no tracheal pain.. has been kept appraised, I did speak to him today brought him up to the minute. Already noted patient's has been updated today. He will be in later today will plan apparently is for tomorrow decision being made regarding extubation. - Time Spent With Patient Total time spent is greater than 50% in coordination of care (as documented) at patient's floor/unit and/or counseling patient: - Subjective Interval history: Intubated on ventilator she is still requiring increased po2 and inc peep but this is being very slowly weaned down. Plan for breathing trial sometime today. He was brief today. - Constitutional Vitals: Abnormal lab results MCH 27.8 pg (28.0-33.3) L 11/17/16 04:11 MCHC 31.3 g/dL (31.6-35.5) L 11/17/16 04:11 RDW 15.9 % (11.5-14.5) H 11/17/16 04:11 Lymphocytes # 0.3 K/mcL (0.6-4.6) L 11/17/16 04:11 Nucleated RBCs/100 WBC 0.2 /100 WBC (0) H 11/11/16 03:00 Hypersegmented Neuts Present (Not Present) A 11/14/16 03:15 Toxic Granulation Present (Not Present) A 11/14/16 03:15 Large Platelets Present (Not Present) A 11/16/16 03:25 Immature Plt Fraction 6.9 % (1.1-6.1) H 11/06/16 17:19 PT 13.9 Seconds (9.4-12.1) H 11/06/16 17:19 APTT 72.0 Seconds (26.0-36.0) H 11/10/16 02:00 D-Dimer 3921 ng/mLFEU (0-500) H 11/06/16 17:19 ABG pCO2 72 mmHg (35-45) H* 11/17/16 04:30 ABG pO2 82 mmHg (85-104) L 11/17/16 04:30 ABG HCO3 37.1 mEQ/L (21-27) H 11/17/16 04:30 ABG Total CO2 39.3 mEq/L (20-26) H 11/17/16 04:30 ABG Base Excess 8.3 mEq/L (-2.0 to 3.0) H 11/17/16 04:30 Chloride 97 mEq/L (98-109) L 11/17/16 04:11 Carbon Dioxide 31 mEq/L (19-29) H 11/17/16 04:11 BUN 116 mg/dL (7-20) H 11/17/16 04:11 Creatinine 3.10 mg/dL (0.57-1.11) H 11/17/16 04:11 Est GFR ( Amer) 19 (> 60) L 11/17/16 04:11 Est GFR (Non-Af Amer) 15 (> 60) L 11/17/16 04:11 BUN/Creatinine Ratio 37 (6-26) H 11/17/16 04:11 Glucose 148 mg/dL (70-99) H 11/17/16 04:11 POC Glucose 155 (58-89) H 11/16/16 23:44 Calculated Osmolality 330 (280-300) H 11/17/16 04:11 Ionized Calcium 1.11 mmol/L (1.15-1.35) L 11/17/16 04:17 Phosphorus 7.7 mg/dL (2.3-4.7) H 11/17/16 04:11 Creatine Kinase 253 Units/L (29-168) H 11/10/16 07:25 Troponin I 0.17 ng/mL (0-0.03) H* 11/13/16 04:16 B-Natriuretic Peptide 2717 pg/mL (0-100) H 11/06/16 17:19 Serum Total Protein 5.3 g/dL (6.0-8.3) L 11/17/16 04:11 Albumin 2.4 g/dL (3.5-5.0) L 11/17/16 04:11 Albumin/Globulin Ratio 0.8 (1.1-2.2) L 11/17/16 04:11 Triglycerides 153 mg/dL (< 150) H 11/10/16 07:25 Lipase 132 Units/L (8-78) H 11/10/16 07:25 General appearance: Present: no acute distress - Head Head exam: Present: atraumatic, normal inspection - Eye Eye exam: Present: normal appearance - ENT ENT exam: Present: mucous membranes moist (Intubated) - Respiratory Respiratory exam: Present: decreased breath sounds, rhonchi - Cardiovascular Cardiovascular exam: Present: RRR - GI/Abdominal GI/Abdominal exam: Present: hypoactive bowel sounds, soft. Absent: tenderness - Extremities Exam Extremities exam: Present: pedal edema. Absent: tenderness - Neurological Exam Neurological exam: Present: altered (Sedated, on vent) - Psychiatric Psychiatric exam: Absent: agitated, anxious - Skin Skin exam: Present: dry, warm Palliative Quality Palliative Quality: Screen for Code Status: Yes (Further screening awaiting family.), Screen for Goals of Care: Yes (Further screening awaiting family.), Screen for Pain: Yes, If Pain Regimen Started, Initiate Bowel Regimen: NA, Screen for Nausea/Vomitting: Yes Code Status: 11/07/16 04:31 CODE [Resuscitation Status: Active] [RES] Routine Comment: Resuscitation Status: Full Code CODE [Resuscitation Status: Active] [RES] Routine Comment: Resuscitation Status: DNR-Comfort Care-Arrest - Labs CBC & Chem 7: 11/17/16 04:11 11/17/16 04:11 Labs: Laboratory Results - last 24 hr 11/16/16 11/16/16 11/16/16 04:52 11:17 17:11 WBC RBC Hgb Hct MCV MCH MCHC RDW Plt Count MPV Immature Gran % Seg Neutrophils % Lymphocytes % Monocytes % Eosinophils % Basophils % Neutrophils # Lymphocytes # Monocytes # Eosinophils # Basophils # ABG pH ABG pCO2 ABG pO2 ABG HCO3 ABG Total CO2 ABG O2 Saturation ABG Base Excess Blood Gas Modality Inspired O2 Sodium Potassium Chloride Carbon Dioxide BUN Creatinine Est GFR ( Amer) Est GFR (Non-Af Amer) BUN/Creatinine Ratio Glucose POC Glucose 183 H 156 H 164 H Calculated Osmolality Calcium Ionized Calcium Phosphorus Magnesium Total Bilirubin AST ALT Alkaline Phosphatase Serum Total Protein Albumin Globulin Albumin/Globulin Ratio 11/16/16 11/17/16 11/17/16 23:44 04:11 04:11 WBC 8.7 RBC 4.67 Hgb 13.0 Hct 41.5 MCV 88.9 MCH 27.8 L MCHC 31.3 L RDW 15.9 H Plt Count 166 MPV 11.7 Immature Gran % 1.3 Seg Neutrophils % 84.0 Lymphocytes % 3.4 Monocytes % 11.1 Eosinophils % 0.1 Basophils % 0.1 Neutrophils # 7.3 Lymphocytes # 0.3 L Monocytes # 1.0 Eosinophils # 0.0 Basophils # 0.0 ABG pH ABG pCO2 ABG pO2 ABG HCO3 ABG Total CO2 ABG O2 Saturation ABG Base Excess Blood Gas Modality Inspired O2 Sodium 140 Potassium 4.2 Chloride 97 L Carbon Dioxide 31 H BUN 116 H Creatinine 3.10 H Est GFR ( Amer) 19 L Est GFR (Non-Af Amer) 15 L BUN/Creatinine Ratio 37 H Glucose 148 H POC Glucose 155 H Calculated Osmolality 330 H Calcium 8.8 Ionized Calcium Phosphorus 7.7 H Magnesium 2.6 Total Bilirubin 0.6 AST 11 ALT 31 Alkaline Phosphatase 46 Serum Total Protein 5.3 L Albumin 2.4 L Globulin 2.9 Albumin/Globulin Ratio 0.8 L 11/17/16 11/17/16 04:17 04:30 WBC RBC Hgb Hct MCV MCH MCHC RDW Plt Count MPV Immature Gran % Seg Neutrophils % Lymphocytes % Monocytes % Eosinophils % Basophils % Neutrophils # Lymphocytes # Monocytes # Eosinophils # Basophils # ABG pH 7.32 ABG pCO2 72 H* ABG pO2 82 L ABG HCO3 37.1 H ABG Total CO2 39.3 H ABG O2 Saturation 95 ABG Base Excess 8.3 H Blood Gas Modality VC Inspired O2 50 Sodium Potassium Chloride Carbon Dioxide BUN Creatinine Est GFR ( Amer) Est GFR (Non-Af Amer) BUN/Creatinine Ratio Glucose POC Glucose Calculated Osmolality Calcium Ionized Calcium 1.11 L Phosphorus Magnesium Total Bilirubin AST ALT Alkaline Phosphatase Serum Total Protein Albumin Globulin Albumin/Globulin Ratio - Impressions Impressions Chest X-Ray 11/17/16 06:00 IMPRESSION: 1. ET tube 3 cm above the zara. No pneumothorax. 2. Stable mild bilateral airspace disease. No definite pleural effusion. D/ / Virgil Kramer MD / Virgil rKamer MD Interpreting Provider: Virgil Kramer MD - ABG Interpretation ABG results: ABG ABG pH 7.32 pH Units (7.32-7.45) 11/17/16 04:30 ABG pCO2 72 mmHg (35-45) H* 11/17/16 04:30 ABG pO2 82 mmHg (85-104) L 11/17/16 04:30 ABG O2 Saturation 95 % (95-98) 11/17/16 04:30 PT/INR, D-dimer PT 13.9 Seconds (9.4-12.1) H 11/06/16 17:19 D-Dimer 3921 ng/mLFEU (0-500) H 11/06/16 17:19 Consult Discharge Plan - Plan Referrals: Kay Palmer [Primary Care Provider] -
[2016-11-18] MEDS: *HR* Heparin 5,000 UNIT/ML VIAL SQ SCH ×3 (03:06→17:27)
[2016-11-18] MEDS: Ipratropium/Albuterol Neb 3 ML IH SCH ×5 (03:34→20:46)
[2016-11-18 04:17] LABS: ABG Base Excess 8.9 mEq/L (-2.0 to 3.0); ABG Oxygen Saturation 93 % (95-98); ABG PH 7.28 pH Units (7.32-7.45); ABG PO2 77 mmHg (85-104); ABG TCO2 41.5 mEq/L (20-26)
[2016-11-18 04:18] LABS: Blood Gas FiO2 40 %
[2016-11-18 04:20] LABS: ABG PCO2 83 mmHg (35-45)
[2016-11-18 04:29] LABS: Basophils % 0.1 %; Eosinophils # 0.1 K/mcL (0.0-0.6); Eosinophils % 0.8 %; Hematocrit 41.1 % (35.3-44.9); Immature Granulocytes % 0.7 % (0-4); Lymphocytes # 0.7 K/mcL (0.6-4.6); Mean Corpuscular HGB Conc 31.6 g/dL (31.6-35.5); Mean Corpuscular Hemoglobin 28.1 pg (28.0-33.3); Mean Platelet Volume 12.1 fL (9.4-12.4); Monocytes # 0.8 K/mcL (0.0-1.3); Monocytes % 9.4 %; Neutrophils # 6.9 K/mcL (1.6-8.9); Platelet Count 150 K/mcL (140-400); Red Blood Count 4.62 M/mcL (3.82-4.97); Red Cell Distribution Width 15.9 % (11.5-14.5)
[2016-11-18 04:55] LABS: Albumin 2.5 g/dL (3.5-5.0); Albumin/Globulin Ratio 0.9 (1.1-2.2); Bilirubin,Total 0.6 mg/dL (0.2-1.2); Calcium 8.4 mg/dL (8.6-10.8); Globulin 2.9 g/dL (2.4-3.5); Potassium 3.8 mEq/L (3.5-4.5); Total Protein 5.4 g/dL (6.0-8.3)
[2016-11-18] MEDS: dilTIAZem HCl 60 MG TABLET PO SCH ×4 (05:49→23:12)
[2016-11-18] MEDS: Insulin LISPRO 300 UNITS/3 ML VIAL SQ SCH ×4 (05:50→23:12)
--- NOTE | 2016-11-18 07:30 | Pulmonology Progress Note ---
Addendum entered and electronically signed by Roderick Jean MD 11/18/16 11:36: Attending addendum: The patient was seen and examined with the house staff. I agree with the resident note with the following addendum: 1. Acute respiratory failure with hypoxia 2. ARDS 3. Acute renal failure 4. COPD 5. Atrial fibrillation 6. Breast cancer 7. DNR status 60 year old obese white female with a history of breast cancer and COPD who presented with acute respiratory failure secondary to ARDS. The patient is rather PEEP dependent (still on 12 cmH2O) with marginal O2 sats. Hypoxia appears out of proportion to CXR & suspect atelectasis is contributing. Per previous discussions with palliative care, the /POA does not want a trach. Plan for extubation without re-intubation (DNI status) . Appreciate palliative care assistance. Unclear how she will tolerate extubation, but will consider transition to DNR-CC with hospice if rapid decline noted. Worsening renal function in the setting of aggressive diuresis (negative > 4L this hospitalization). We have discontinued Lasix, and we are trending I/Os. Prefer even fluid balance in light of ARDS. COPD with acute exacerbation. Continue bronchodilators and steroids. Transitioned to PO prednisone regimen. Afib with RVR controlled on enteral diltiazem regimen. Poor overall prognosis. Continue to monitor respiratory status in ICU following extubation. Total direct critical care time excluding procedures: 35 minutes Original Note: Date of Encounter: 11/18/16 Time of Encounter: 07:28 Assessment and Plan (1) Acute respiratory failure with hypercapnia Current Visit: Yes Status: Acute Patient intubated with spontaneous eye opening and movement of all extremities on command. Appears very anxious and emotional regarding today's plan. Acute respiratory failure likely secondary to pneumonia in setting of advanced COPD. Started on CPAP with pressure support of 8 this morning. Soft upper extremities restraints ordered. Comfort measure meds as needed. Continue prednisone 40mg qd. Continue breathing treatments. Will discuss plan with family members and possible extubation without reintubation. (2) Acute exacerbation of chronic obstructive pulmonary disease (COPD) Current Visit: Yes Status: Acute per assessment above (3) Acute kidney injury superimposed on CKD Current Visit: Yes Status: Acute Cr increased to mild improved at 3.03 from 3.10. Continue electrolyte protocol. (4) Cigarette smoker Current Visit: Yes Status: Acute (5) Atrial fibrillation Current Visit: Yes Status: Acute Currently sinus rhythm. Continue PO cardizem. Qualifiers: Atrial fibrillation type: paroxysmal Qualified Code(s): I48.0 - Paroxysmal atrial fibrillation (6) Elevated troponin Current Visit: Yes Status: Acute (7) Goals of care, counseling/discussion Current Visit: Yes Status: Acute Goals of care and counseling discussed. Palliative care note reviewed and discussed with palliative care. Continue tube feeds to goal. Comfort measure meds as needed. Currently on Cpap. Plan to extubate without reintubation today. Patient has been showing some improvement as patient seems comfortable on CPAP. If patient is able to be extubated and improves to the point of leaving ICU, patient will require aggressive hospitalist care to return back to baseline. (8) Invasive ductal carcinoma of breast Current Visit: Yes Status: Chronic Qualifiers: Laterality: right Qualified Code(s): C50.911 - Malignant neoplasm of unspecified site of right female breast (9) Hypertension Current Visit: Yes Status: Acute Bp controlled and stable. Qualifiers: Hypertension type: essential hypertension Qualified Code(s): I10 - Essential (primary) hypertension (10) DVT prophylaxis Current Visit: Yes Status: Acute heparin sq for dvt ppx Subjective Principal diagnosis: Respiratory failure Interval history: Awakens easily off sedation, moves all extremities when prompted, appears very anxious and emotional when discussing plan of care for today, started on CPAP this morning. Objective PUL Vital signs: Last Vital Signs Temp 98 F 11/18/16 04:00 Pulse 93 11/18/16 06:00 Resp 9 11/18/16 06:20 BP 124/61 11/18/16 06:00 Pulse Ox 95 11/18/16 06:20 General appearance: other (comfortably intubated, opens eyes spotaneously, moves extremities when prompted, appears anxious and emotional) Eyes: nonicteric Neck: supple Effort: normal Auscultation: bilateral: rhonchi (mild) Cardiovascular: regular rate and rhythm Gastrointestinal: hypoactive bowel sounds, soft, non-distended Integumentary: normal Extremities: no cyanosis, pink and warm, edema Musculoskeletal: no deformities non-focal exam, pupils equal and round anxious Ventilator Settings Ventilator Settings: Ventilator Settings, Last 8 Hours Ventilator Mode CPAP Ventilator Mode CPAP Ventilator Mode VC+ Ventilator Mode VC+ Ventilator Mode VC+ Ventilator Mode VC+ Ventilator Mode VC+ Ventilator Mode VC+ Ventilator Mode VC+ Ventilator Mode VC+ Ventilator Mode VC+ Ventilator Tidal Volume 225 Setting Ventilator Tidal Volume 225 Setting Ventilator Tidal Volume 225 Setting Ventilator Tidal Volume 225 Setting Ventilator Tidal Volume 225 Setting Ventilator Tidal Volume 225 Setting Ventilator Tidal Volume 225 Setting Ventilator Tidal Volume 225 Setting Ventilator Tidal Volume 225 Setting Ventilator Tidal Volume 225 Setting Ventilator Respiratory Rate 16 Setting Ventilator Respiratory Rate 16 Setting Ventilator Respiratory Rate 16 Setting Ventilator Respiratory Rate 16 Setting Ventilator Respiratory Rate 16 Setting Ventilator Respiratory Rate 16 Setting Ventilator Respiratory Rate 16 Setting Ventilator Respiratory Rate 16 Setting Ventilator Respiratory Rate 16 Setting Ventilator Respiratory Rate 16 Setting Actual Respiratory Rate 9 Actual Respiratory Rate 9 Actual Respiratory Rate 18 Actual Respiratory Rate 20 Actual Respiratory Rate 18 Actual Respiratory Rate 18 Actual Respiratory Rate 19 Actual Respiratory Rate 22 Actual Respiratory Rate 16 Actual Respiratory Rate 19 Positive End Expiratory 12 Pressure Positive End Expiratory 12 Pressure Positive End Expiratory 12 Pressure Positive End Expiratory 12 Pressure Positive End Expiratory 12 Pressure Positive End Expiratory 12 Pressure Positive End Expiratory 12 Pressure Positive End Expiratory 12 Pressure Positive End Expiratory 12 Pressure Positive End Expiratory 12 Pressure Positive End Expiratory 12 Pressure Peak Inspiratory Airway 17 Pressure Peak Inspiratory Airway 23 Pressure Peak Inspiratory Airway 17 Pressure Peak Inspiratory Airway 18 Pressure Peak Inspiratory Airway 18 Pressure Peak Inspiratory Airway 26 Pressure Peak Inspiratory Airway 20 Pressure Peak Inspiratory Airway 21 Pressure Peak Inspiratory Airway 20 Pressure Results - Laboratory Findings CBC and BMP: 11/18/16 03:57 11/18/16 03:57 ABG ABG pH 7.28 pH Units (7.32-7.45) L 11/18/16 04:08 ABG pCO2 83 mmHg (35-45) H* 11/18/16 04:08 ABG pO2 77 mmHg (85-104) L 11/18/16 04:08 ABG O2 Saturation 93 % (95-98) L 11/18/16 04:08 PT/INR, D-dimer PT 13.9 Seconds (9.4-12.1) H 11/06/16 17:19 D-Dimer 3921 ng/mLFEU (0-500) H 11/06/16 17:19 Abnormal lab findings: Abnormal lab results RDW 15.9 % (11.5-14.5) H 11/18/16 03:57 Nucleated RBCs/100 WBC 0.2 /100 WBC (0) H 11/11/16 03:00 Hypersegmented Neuts Present (Not Present) A 11/14/16 03:15 Toxic Granulation Present (Not Present) A 11/14/16 03:15 Large Platelets Present (Not Present) A 11/16/16 03:25 Immature Plt Fraction 6.9 % (1.1-6.1) H 11/06/16 17:19 PT 13.9 Seconds (9.4-12.1) H 11/06/16 17:19 APTT 72.0 Seconds (26.0-36.0) H 11/10/16 02:00 D-Dimer 3921 ng/mLFEU (0-500) H 11/06/16 17:19 ABG pH 7.28 pH Units (7.32-7.45) L 11/18/16 04:08 ABG pCO2 83 mmHg (35-45) H* 11/18/16 04:08 ABG pO2 77 mmHg (85-104) L 11/18/16 04:08 ABG HCO3 39.0 mEQ/L (21-27) H 11/18/16 04:08 ABG Total CO2 41.5 mEq/L (20-26) H 11/18/16 04:08 ABG O2 Saturation 93 % (95-98) L 11/18/16 04:08 ABG Base Excess 8.9 mEq/L (-2.0 to 3.0) H 11/18/16 04:08 Carbon Dioxide 30 mEq/L (19-29) H 11/18/16 03:57 BUN 130 mg/dL (7-20) H 11/18/16 03:57 Creatinine 3.03 mg/dL (0.57-1.11) H 11/18/16 03:57 Est GFR ( Amer) 19 (> 60) L 11/18/16 03:57 Est GFR (Non-Af Amer) 16 (> 60) L 11/18/16 03:57 BUN/Creatinine Ratio 43 (6-26) H 11/18/16 03:57 Glucose 128 mg/dL (70-99) H 11/18/16 03:57 POC Glucose 126 (58-89) H 11/17/16 23:39 Calculated Osmolality 340 (280-300) H 11/18/16 03:57 Calcium 8.4 mg/dL (8.6-10.8) L 11/18/16 03:57 Ionized Calcium 1.11 mmol/L (1.15-1.35) L 11/17/16 04:17 Phosphorus 7.7 mg/dL (2.3-4.7) H 11/17/16 04:11 Creatine Kinase 253 Units/L (29-168) H 11/10/16 07:25 Troponin I 0.17 ng/mL (0-0.03) H* 11/13/16 04:16 B-Natriuretic Peptide 2717 pg/mL (0-100) H 11/06/16 17:19 Serum Total Protein 5.4 g/dL (6.0-8.3) L 11/18/16 03:57 Albumin 2.5 g/dL (3.5-5.0) L 11/18/16 03:57 Albumin/Globulin Ratio 0.9 (1.1-2.2) L 11/18/16 03:57 Triglycerides 153 mg/dL (< 150) H 11/10/16 07:25 Lipase 132 Units/L (8-78) H 11/10/16 07:25 - Clinical Findings Intake & Output: Intake & Output 11/17/16 11/17/16 11/18/16 15:59 23:59 07:59 Intake Total 118 / 118 915 / 915 543 / 543 Output Total 225 / 225 750 / 750 300 / 300 Balance -107 / -107 165 / 165 243 / 243 Weight 131 kg Consult Discharge Plan - Plan Referrals: Kay Palmer [Primary Care Provider] -
[2016-11-18] MEDS: Budesonide/Formoterol 160/4.5 MDI IH SCH ×2 (07:44→20:46)
[2016-11-18] MEDS: Pantoprazole 40 MG VIAL IVP SCH (08:27)
[2016-11-18] MEDS: Chlorhexidine Rinse 15 ML MOUTHWASH MM SCH ×2 (08:27→20:31)
[2016-11-18] MEDS: Lacri-Lube 3.5 GM TUBE BOTH EYES SCH ×2 (08:28→20:31)
[2016-11-18] MEDS: predniSONE 20 MG TABLET PO SCH (08:28)
[2016-11-18] MEDS: Aspirin 81 MG TAB.CHEW GTUBE SCH (08:28)
[2016-11-18] MEDS: Nicotine 21 MG PATCH.TD24 TD SCH (08:28)
[2016-11-18] MEDS: Artificial Tears SOLN 15 ML BOTTLE BOTH EYES SCH ×4 (08:29→20:42)
--- NOTE | 2016-11-18 13:15 | Palliative Progress Note ---
Date of Encounter: 11/18/16 Time of Encounter: 09:00 - Assessment and plan (1) Pain Current Visit: Yes Status: Acute Assessment and plan: Well-controlled on fentanyl drip No changes today. Continue current medications today 11/11/2016 no changes 11/13 No changes on 11/17 Well-controlled on current medications. (2) Dyspnea Current Visit: Yes Status: Acute Assessment and plan: She is tolerating CPAP well this morning. Plan for today is for extubation later on today without reintubation. Qualifiers: Dyspnea type: shortness of breath Qualified Code(s): R06.02 - Shortness of breath (3) Acute exacerbation of chronic obstructive pulmonary disease (COPD) Current Visit: Yes Status: Acute Assessment and plan: still on vent plan per pulmonary team. no changes 11/13 [place] for today is for extubation without reintubation. See how the patient does if she does well continue aggressive care for her various medical problems. (4) Acute respiratory failure with hypercapnia Current Visit: Yes Status: Acute Assessment and plan: She is tolerating EPAP well this morning with oxygen saturations as good as they have been since she been in the hospital. Plan for today is for extubation later on today without reintubation. (5) Breast cancer Current Visit: No Status: Acute Assessment and plan: History turn to cancer Center for continued care of the patient if she is pulled through this. no changes 11/13 Dr Mckenna is aware No changes. Qualifiers: Breast location: upper outer quadrant of breast Laterality: right Qualified Code(s): C50.411 - Malignant neoplasm of upper-outer quadrant of right female breast (6) Goals of care, counseling/discussion Current Visit: Yes Status: Acute Assessment and plan: DNRCCA, patient is already intubated area all plan is to do aggressive therapy to try to get her off the ventilator, however there would be no tracheal [place] today his extubation later on today without reintubation. We discussed goals of care if the patient makes it through extubation which at this point is probably about 50-50. - Time Spent With Patient Total time spent is greater than 50% in coordination of care (as documented) at patient's floor/unit and/or counseling patient: - Subjective Interval history: Intubated on ventilator she is still requiring increased po2 and inc peep as tolerated CPAP well this morning. Patient is able to tell me that she is ready to get the tube out. - Constitutional Vitals: Abnormal lab results RDW 15.9 % (11.5-14.5) H 11/18/16 03:57 Nucleated RBCs/100 WBC 0.2 /100 WBC (0) H 11/11/16 03:00 Hypersegmented Neuts Present (Not Present) A 11/14/16 03:15 Toxic Granulation Present (Not Present) A 11/14/16 03:15 Large Platelets Present (Not Present) A 11/16/16 03:25 Immature Plt Fraction 6.9 % (1.1-6.1) H 11/06/16 17:19 PT 13.9 Seconds (9.4-12.1) H 11/06/16 17:19 APTT 72.0 Seconds (26.0-36.0) H 11/10/16 02:00 D-Dimer 3921 ng/mLFEU (0-500) H 11/06/16 17:19 ABG pH 7.28 pH Units (7.32-7.45) L 11/18/16 04:08 ABG pCO2 83 mmHg (35-45) H* 11/18/16 04:08 ABG pO2 77 mmHg (85-104) L 11/18/16 04:08 ABG HCO3 39.0 mEQ/L (21-27) H 11/18/16 04:08 ABG Total CO2 41.5 mEq/L (20-26) H 11/18/16 04:08 ABG O2 Saturation 93 % (95-98) L 11/18/16 04:08 ABG Base Excess 8.9 mEq/L (-2.0 to 3.0) H 11/18/16 04:08 Carbon Dioxide 30 mEq/L (19-29) H 11/18/16 03:57 BUN 130 mg/dL (7-20) H 11/18/16 03:57 Creatinine 3.03 mg/dL (0.57-1.11) H 11/18/16 03:57 Est GFR ( Amer) 19 (> 60) L 11/18/16 03:57 Est GFR (Non-Af Amer) 16 (> 60) L 11/18/16 03:57 BUN/Creatinine Ratio 43 (6-26) H 11/18/16 03:57 Glucose 128 mg/dL (70-99) H 11/18/16 03:57 POC Glucose 126 (58-89) H 11/17/16 23:39 Calculated Osmolality 340 (280-300) H 11/18/16 03:57 Calcium 8.4 mg/dL (8.6-10.8) L 11/18/16 03:57 Ionized Calcium 1.11 mmol/L (1.15-1.35) L 11/17/16 04:17 Phosphorus 7.7 mg/dL (2.3-4.7) H 11/17/16 04:11 Creatine Kinase 253 Units/L (29-168) H 11/10/16 07:25 Troponin I 0.17 ng/mL (0-0.03) H* 11/13/16 04:16 B-Natriuretic Peptide 2717 pg/mL (0-100) H 11/06/16 17:19 Serum Total Protein 5.4 g/dL (6.0-8.3) L 11/18/16 03:57 Albumin 2.5 g/dL (3.5-5.0) L 11/18/16 03:57 Albumin/Globulin Ratio 0.9 (1.1-2.2) L 11/18/16 03:57 Triglycerides 153 mg/dL (< 150) H 11/10/16 07:25 Lipase 132 Units/L (8-78) H 11/10/16 07:25 General appearance: Present: no acute distress - Head Head exam: Present: atraumatic, normal inspection - Eye Eye exam: Present: normal appearance - ENT ENT exam: Present: mucous membranes moist - Respiratory Respiratory exam: Present: decreased breath sounds - Cardiovascular Cardiovascular exam: Present: RRR, tachycardia - GI/Abdominal GI/Abdominal exam: Present: normal bowel sounds, soft. Absent: tenderness - Extremities Exam Extremities exam: Present: pedal edema. Absent: normal inspection, tenderness - Neurological Exam Neurological exam: Present: alert - Psychiatric Psychiatric exam: Absent: agitated, anxious - Skin Skin exam: Present: dry, warm Palliative Quality Palliative Quality: Screen for Code Status: Yes (Further screening awaiting family.), Screen for Goals of Care: Yes (Further screening awaiting family.), Screen for Pain: Yes, If Pain Regimen Started, Initiate Bowel Regimen: NA, Screen for Nausea/Vomitting: Yes Code Status: 11/07/16 04:31 CODE [Resuscitation Status: Active] [RES] Routine Comment: Resuscitation Status: Full Code CODE [Resuscitation Status: Active] [RES] Routine Comment: Resuscitation Status: DNR-Comfort Care-Arrest - Labs CBC & Chem 7: 11/18/16 03:57 11/18/16 03:57 Labs: Laboratory Results - last 24 hr 11/17/16 11/17/16 11/17/16 11:54 17:29 23:39 WBC RBC Hgb Hct MCV MCH MCHC RDW Plt Count MPV Immature Gran % Seg Neutrophils % Lymphocytes % Monocytes % Eosinophils % Basophils % Neutrophils # Lymphocytes # Monocytes # Eosinophils # Basophils # ABG pH ABG pCO2 ABG pO2 ABG HCO3 ABG Total CO2 ABG O2 Saturation ABG Base Excess Blood Gas Modality Inspired O2 Sodium Potassium Chloride Carbon Dioxide BUN Creatinine Est GFR ( Amer) Est GFR (Non-Af Amer) BUN/Creatinine Ratio Glucose POC Glucose 131 H 187 H 126 H Calculated Osmolality Calcium Total Bilirubin AST ALT Alkaline Phosphatase Serum Total Protein Albumin Globulin Albumin/Globulin Ratio 11/18/16 11/18/16 11/18/16 03:57 03:57 04:08 WBC 8.5 RBC 4.62 Hgb 13.0 Hct 41.1 MCV 89.0 MCH 28.1 MCHC 31.6 RDW 15.9 H Plt Count 150 MPV 12.1 Immature Gran % 0.7 Seg Neutrophils % 81.0 Lymphocytes % 8.0 Monocytes % 9.4 Eosinophils % 0.8 Basophils % 0.1 Neutrophils # 6.9 Lymphocytes # 0.7 Monocytes # 0.8 Eosinophils # 0.1 Basophils # 0.0 ABG pH 7.28 L ABG pCO2 83 H* ABG pO2 77 L ABG HCO3 39.0 H ABG Total CO2 41.5 H ABG O2 Saturation 93 L ABG Base Excess 8.9 H Blood Gas Modality vct Inspired O2 40 Sodium 143 Potassium 3.8 Chloride 98 Carbon Dioxide 30 H BUN 130 H Creatinine 3.03 H Est GFR ( Amer) 19 L Est GFR (Non-Af Amer) 16 L BUN/Creatinine Ratio 43 H Glucose 128 H POC Glucose Calculated Osmolality 340 H Calcium 8.4 L Total Bilirubin 0.6 AST 11 ALT 31 Alkaline Phosphatase 49 Serum Total Protein 5.4 L Albumin 2.5 L Globulin 2.9 Albumin/Globulin Ratio 0.9 L - ABG Interpretation ABG results: ABG ABG pH 7.28 pH Units (7.32-7.45) L 11/18/16 04:08 ABG pCO2 83 mmHg (35-45) H* 11/18/16 04:08 ABG pO2 77 mmHg (85-104) L 11/18/16 04:08 ABG O2 Saturation 93 % (95-98) L 11/18/16 04:08 PT/INR, D-dimer PT 13.9 Seconds (9.4-12.1) H 11/06/16 17:19 D-Dimer 3921 ng/mLFEU (0-500) H 11/06/16 17:19 Consult Discharge Plan - Plan Referrals: Kay Palmer [Primary Care Provider] -
[2016-11-18] MEDS ORDERED: *HR* LORazepam 0.5 MG TABLET PO PRN (19:10)
[2016-11-18] MEDS: FentaNYL (PF) 3,000 MCG in 0.9 % Sodium Chloride 240 ML IVC SCH (19:30)
[2016-11-18] MEDS: *HR* LORazepam 2 MG/ML VIAL IVP PRN (21:42)
[2016-11-19] MEDS: Ipratropium/Albuterol Neb 3 ML IH SCH ×6 (00:12→20:27)
[2016-11-19] MEDS: *HR* Heparin 5,000 UNIT/ML VIAL SQ SCH ×3 (02:07→17:23)
[2016-11-19] MEDS: FentaNYL (PF) 3,000 MCG in 0.9 % Sodium Chloride 240 ML IVC SCH (02:08)
[2016-11-19] MEDS: Insulin LISPRO 300 UNITS/3 ML VIAL SQ SCH ×3 (05:44→20:48)
[2016-11-19] MEDS: dilTIAZem HCl 60 MG TABLET PO SCH ×3 (05:44→17:23)
[2016-11-19] MEDS: *HR* LORazepam 2 MG/ML VIAL IVP PRN (05:44)
[2016-11-19 06:02] LABS: Basophils % 0.1 %; Eosinophils # 0.1 K/mcL (0.0-0.6); Eosinophils % 1.4 %; Hematocrit 41.9 % (35.3-44.9); Hemoglobin 13.7 g/dL (11.5-15.4); Immature Granulocytes % 0.5 % (0-4); Lymphocytes # 0.9 K/mcL (0.6-4.6); Lymphocytes % 9.4 %; Mean Corpuscular HGB Conc 32.7 g/dL (31.6-35.5); Mean Corpuscular Hemoglobin 28.2 pg (28.0-33.3); Mean Corpuscular Volume 86.4 fL (83.0-100.0); Mean Platelet Volume 11.8 fL (9.4-12.4); Monocytes # 0.8 K/mcL (0.0-1.3); Monocytes % 8.3 %; Neutrophils # 7.4 K/mcL (1.6-8.9); Platelet Count 127 K/mcL (140-400); Red Blood Count 4.85 M/mcL (3.82-4.97); Red Cell Distribution Width 15.3 % (11.5-14.5); Segmented Neutrophils % 80.3 %
[2016-11-19 06:14] LABS: Albumin 2.6 g/dL (3.5-5.0); Albumin/Globulin Ratio 0.9 (1.1-2.2); Calcium 8.5 mg/dL (8.6-10.8); Potassium 3.3 mEq/L (3.5-4.5); Total Protein 5.6 g/dL (6.0-8.3)
[2016-11-19 06:18] LABS: Bilirubin,Total 1.3 mg/dL (0.2-1.2)
--- NOTE | 2016-11-19 07:39 | Pulmonology Progress Note ---
Date of Encounter: 11/19/16 Time of Encounter: 07:35 Assessment and Plan (1) Acute respiratory failure with hypercapnia Current Visit: Yes Status: Acute Patient extubated yesterday morning. Patient has been satting at 91-93% on 5L nasal cannula. Acute respirator failure likely secondary to pneumonia vs ARDS in setting of advanced COPD. Continue with prednisone 40mg qd today starting with taper by 10mg every three days, Continue breathing treatments. (2) Acute exacerbation of chronic obstructive pulmonary disease (COPD) Current Visit: Yes Status: Acute per assessment above (3) Acute kidney injury superimposed on CKD Current Visit: Yes Status: Acute Cr improved to 2.16 from 3.13 yesterday. Urine output 3625mL/24hr. Continue electrolyte protocol. PRICE on CKD unknown stage (4) Anxiety Current Visit: Yes Status: Acute Significant anxiety resulting in inability to sleep. No change overnight when given Ativan. Vistaril 50mg qid and ativan prn. (5) Cigarette smoker Current Visit: Yes Status: Chronic (6) Atrial fibrillation Current Visit: Yes Status: Acute Currently sinus rhythm. Continue PO cardizem. Qualifiers: Atrial fibrillation type: paroxysmal Qualified Code(s): I48.0 - Paroxysmal atrial fibrillation (7) Elevated troponin Current Visit: Yes Status: Acute (8) Invasive ductal carcinoma of breast Current Visit: Yes Status: Chronic Qualifiers: Laterality: right Qualified Code(s): C50.911 - Malignant neoplasm of unspecified site of right female breast (9) Hypertension Current Visit: Yes Status: Chronic Bp controlled and stable. Qualifiers: Hypertension type: essential hypertension Qualified Code(s): I10 - Essential (primary) hypertension (10) Physical deconditioning Current Visit: Yes Status: Acute PT/OT reevaluation. (11) Goals of care, counseling/discussion Current Visit: Yes Status: Acute Goals of care and counseling discussed. Transfer to step down 2N. (12) DVT prophylaxis Current Visit: Yes Status: Acute heparin sq for dvt ppx Subjective Principal diagnosis: Respiratory failure Interval history: Patient is alert and oriented x4, very anxious and emotional, refuses to close eyes/sleep because she is "afraid to ". Patient also reports cough, dark yellow mucus, and upper extremity weakness. Nurse reports one episode of emesis this morning, patient denies nausea. Patient has no had a bowel movement, but is passing gas. Denies fevers, chills, sweats, changes in vision or hearing, chest pain, shortness of breath, abdominal pain, dysuria, or loss of sensation. Objective PUL Vital signs: Last Vital Signs Temp 98.6 F 11/19/16 07:20 Pulse 116 11/19/16 06:00 Resp 22 11/19/16 06:00 BP 136/78 11/19/16 06:00 Pulse Ox 91 L 11/19/16 06:00 General appearance: alert, other (anxious) Eyes: nonicteric ENT: oropharynx moist Neck: supple Effort: normal Auscultation: bilateral: wheezes (mild), rhonchi (mild) Cardiovascular: regular rate and rhythm Gastrointestinal: hypoactive bowel sounds, soft, non-tender, non-distended Integumentary: normal Extremities: no cyanosis, pink and warm, pulses normal, edema Musculoskeletal: no deformities normal mental status, pupils equal and round, other (motor strength diminished bilaterally, but improving) affect normal, anxious, depressed, tearful Results - Laboratory Findings CBC and BMP: 11/19/16 05:55 11/19/16 05:55 ABG ABG pH 7.28 pH Units (7.32-7.45) L 11/18/16 04:08 ABG pCO2 83 mmHg (35-45) H* 11/18/16 04:08 ABG pO2 77 mmHg (85-104) L 11/18/16 04:08 ABG O2 Saturation 93 % (95-98) L 11/18/16 04:08 PT/INR, D-dimer PT 13.9 Seconds (9.4-12.1) H 11/06/16 17:19 D-Dimer 3921 ng/mLFEU (0-500) H 11/06/16 17:19 Abnormal lab findings: Abnormal lab results RDW 15.3 % (11.5-14.5) H 11/19/16 05:55 Plt Count 127 K/mcL (140-400) L 11/19/16 05:55 Nucleated RBCs/100 WBC 0.2 /100 WBC (0) H 11/11/16 03:00 Hypersegmented Neuts Present (Not Present) A 11/14/16 03:15 Toxic Granulation Present (Not Present) A 11/14/16 03:15 Large Platelets Present (Not Present) A 11/16/16 03:25 Immature Plt Fraction 6.9 % (1.1-6.1) H 11/06/16 17:19 PT 13.9 Seconds (9.4-12.1) H 11/06/16 17:19 APTT 72.0 Seconds (26.0-36.0) H 11/10/16 02:00 D-Dimer 3921 ng/mLFEU (0-500) H 11/06/16 17:19 ABG pH 7.28 pH Units (7.32-7.45) L 11/18/16 04:08 ABG pCO2 83 mmHg (35-45) H* 11/18/16 04:08 ABG pO2 77 mmHg (85-104) L 11/18/16 04:08 ABG HCO3 39.0 mEQ/L (21-27) H 11/18/16 04:08 ABG Total CO2 41.5 mEq/L (20-26) H 11/18/16 04:08 ABG O2 Saturation 93 % (95-98) L 11/18/16 04:08 ABG Base Excess 8.9 mEq/L (-2.0 to 3.0) H 11/18/16 04:08 Potassium 3.3 mEq/L (3.5-4.5) L 11/19/16 05:55 Carbon Dioxide 30 mEq/L (19-29) H 11/19/16 05:55 BUN 113 mg/dL (7-20) H 11/19/16 05:55 Creatinine 2.16 mg/dL (0.57-1.11) H 11/19/16 05:55 Est GFR ( Amer) 28 (> 60) L 11/19/16 05:55 Est GFR (Non-Af Amer) 23 (> 60) L 11/19/16 05:55 BUN/Creatinine Ratio 52 (6-26) H 11/19/16 05:55 Glucose 121 mg/dL (70-99) H 11/19/16 05:55 POC Glucose 175 (58-89) H 11/18/16 23:10 Calculated Osmolality 329 (280-300) H 11/19/16 05:55 Calcium 8.5 mg/dL (8.6-10.8) L 11/19/16 05:55 Ionized Calcium 1.11 mmol/L (1.15-1.35) L 11/17/16 04:17 Phosphorus 7.7 mg/dL (2.3-4.7) H 11/17/16 04:11 Total Bilirubin 1.3 mg/dL (0.2-1.2) H D 11/19/16 05:55 Creatine Kinase 253 Units/L (29-168) H 11/10/16 07:25 Troponin I 0.17 ng/mL (0-0.03) H* 11/13/16 04:16 B-Natriuretic Peptide 2717 pg/mL (0-100) H 11/06/16 17:19 Serum Total Protein 5.6 g/dL (6.0-8.3) L 11/19/16 05:55 Albumin 2.6 g/dL (3.5-5.0) L 11/19/16 05:55 Albumin/Globulin Ratio 0.9 (1.1-2.2) L 11/19/16 05:55 Triglycerides 153 mg/dL (< 150) H 11/10/16 07:25 Lipase 132 Units/L (8-78) H 11/10/16 07:25 - Clinical Findings Intake & Output: Intake & Output 11/18/16 11/18/16 11/19/16 15:59 23:59 07:59 Intake Total 300 / 300 200 / 200 Output Total 700 / 700 1999 1225 / 1225 Balance -700 / -700 -1700 / -1700 -1025 / -1025 Consult Discharge Plan - Plan Referrals: Kay Palmer [Primary Care Provider] -
[2016-11-19] MEDS: Budesonide/Formoterol 160/4.5 MDI IH SCH ×2 (07:50→22:25)
[2016-11-19] MEDS: Aspirin 81 MG TAB.CHEW GTUBE SCH (08:21)
[2016-11-19] MEDS: predniSONE 20 MG TABLET PO SCH (08:21)
[2016-11-19] MEDS: Pantoprazole 40 MG VIAL IVP SCH (08:21)
[2016-11-19] MEDS: Nicotine 21 MG PATCH.TD24 TD SCH (08:22)
[2016-11-19] MEDS: Chlorhexidine Rinse 15 ML MOUTHWASH MM SCH (08:22)
[2016-11-19] MEDS: Artificial Tears SOLN 15 ML BOTTLE BOTH EYES SCH ×2 (08:23→12:17)
[2016-11-19] MEDS: Lacri-Lube 3.5 GM TUBE BOTH EYES SCH (08:23)
[2016-11-19] MEDS ORDERED: *HR* LORazepam 2 MG/ML VIAL IVP PRN ×2 (08:30→14:13)
[2016-11-19] MEDS ORDERED: hydrOXYzine pamoate 25 MG CAPSULE PO PRN (10:40)
--- NOTE | 2016-11-19 11:34 | Palliative Progress Note ---
Date of Encounter: 11/19/16 Time of Encounter: 09:00 - Assessment and plan (1) Pain Current Visit: Yes Status: Acute Assessment and plan: Off the vent off all sedation, no complaints of pain at this time continue to watch. (2) Dyspnea Current Visit: Yes Status: Acute Assessment and plan: Off the ventilator not experiencing any dyspnea at this time, will not be reintubated will continue to watch and follow. Qualifiers: Dyspnea type: shortness of breath Qualified Code(s): R06.02 - Shortness of breath (3) Acute exacerbation of chronic obstructive pulmonary disease (COPD) Current Visit: Yes Status: Acute Assessment and plan: Markedly improved off the ventilator continue to watch. Put in order to qualify for home O2. (4) Acute respiratory failure with hypercapnia Current Visit: Yes Status: Acute Assessment and plan: Off the vent, continue current medications. (5) Breast cancer Current Visit: No Status: Acute Assessment and plan: 7 plan to restart care when she is able. Qualifiers: Breast location: upper outer quadrant of breast Laterality: right Qualified Code(s): C50.411 - Malignant neoplasm of upper-outer quadrant of right female breast (6) Goals of care, counseling/discussion Current Visit: Yes Status: Acute Assessment and plan: DNRCCA, patient also requests DNI status. She wishes to be treated aggressively for her illness but not to be reintubated. Continue to follow. His cancer is T1 N0 and very treatable plan will be to repeat resume is is able. - Time Spent With Patient Total time spent is greater than 50% in coordination of care (as documented) at patient's floor/unit and/or counseling patient: - Subjective Interval history: Extubated, awake and alert no pain no difficulty breathing at this time. Her voice is raspy, a bit of difficulty with swallowing but doing well.. - Constitutional Vitals: Abnormal lab results RDW 15.3 % (11.5-14.5) H 11/19/16 05:55 Plt Count 127 K/mcL (140-400) L 11/19/16 05:55 Nucleated RBCs/100 WBC 0.2 /100 WBC (0) H 11/11/16 03:00 Hypersegmented Neuts Present (Not Present) A 11/14/16 03:15 Toxic Granulation Present (Not Present) A 11/14/16 03:15 Large Platelets Present (Not Present) A 11/16/16 03:25 Immature Plt Fraction 6.9 % (1.1-6.1) H 11/06/16 17:19 PT 13.9 Seconds (9.4-12.1) H 11/06/16 17:19 APTT 72.0 Seconds (26.0-36.0) H 11/10/16 02:00 D-Dimer 3921 ng/mLFEU (0-500) H 11/06/16 17:19 ABG pH 7.28 pH Units (7.32-7.45) L 11/18/16 04:08 ABG pCO2 83 mmHg (35-45) H* 11/18/16 04:08 ABG pO2 77 mmHg (85-104) L 11/18/16 04:08 ABG HCO3 39.0 mEQ/L (21-27) H 11/18/16 04:08 ABG Total CO2 41.5 mEq/L (20-26) H 11/18/16 04:08 ABG O2 Saturation 93 % (95-98) L 11/18/16 04:08 ABG Base Excess 8.9 mEq/L (-2.0 to 3.0) H 11/18/16 04:08 Potassium 3.3 mEq/L (3.5-4.5) L 11/19/16 05:55 Carbon Dioxide 30 mEq/L (19-29) H 11/19/16 05:55 BUN 113 mg/dL (7-20) H 11/19/16 05:55 Creatinine 2.16 mg/dL (0.57-1.11) H 11/19/16 05:55 Est GFR ( Amer) 28 (> 60) L 11/19/16 05:55 Est GFR (Non-Af Amer) 23 (> 60) L 11/19/16 05:55 BUN/Creatinine Ratio 52 (6-26) H 11/19/16 05:55 Glucose 121 mg/dL (70-99) H 11/19/16 05:55 POC Glucose 175 (58-89) H 11/18/16 23:10 Calculated Osmolality 329 (280-300) H 11/19/16 05:55 Calcium 8.5 mg/dL (8.6-10.8) L 11/19/16 05:55 Ionized Calcium 1.11 mmol/L (1.15-1.35) L 11/17/16 04:17 Phosphorus 7.7 mg/dL (2.3-4.7) H 11/17/16 04:11 Total Bilirubin 1.3 mg/dL (0.2-1.2) H D 11/19/16 05:55 Creatine Kinase 253 Units/L (29-168) H 11/10/16 07:25 Troponin I 0.17 ng/mL (0-0.03) H* 11/13/16 04:16 B-Natriuretic Peptide 2717 pg/mL (0-100) H 11/06/16 17:19 Serum Total Protein 5.6 g/dL (6.0-8.3) L 11/19/16 05:55 Albumin 2.6 g/dL (3.5-5.0) L 11/19/16 05:55 Albumin/Globulin Ratio 0.9 (1.1-2.2) L 11/19/16 05:55 Triglycerides 153 mg/dL (< 150) H 11/10/16 07:25 Lipase 132 Units/L (8-78) H 11/10/16 07:25 General appearance: Present: no acute distress - Head Head exam: Present: atraumatic, normal inspection - Eye Eye exam: Present: normal appearance - ENT ENT exam: Present: mucous membranes moist - Respiratory Respiratory exam: Present: decreased breath sounds, rhonchi (Things sats well on oxygen now) - Cardiovascular Cardiovascular exam: Present: RRR, tachycardia - GI/Abdominal GI/Abdominal exam: Present: normal bowel sounds, tenderness - Extremities Exam Extremities exam: Present: pedal edema (But decreased). Absent: tenderness - Neurological Exam Neurological exam: Present: alert, oriented X3 - Psychiatric Psychiatric exam: Present: normal affect, normal mood. Absent: agitated, anxious - Skin Skin exam: Present: dry, warm Palliative Quality Palliative Quality: Screen for Code Status: Yes (Further screening awaiting family.), Screen for Goals of Care: Yes (Further screening awaiting family.), Screen for Pain: Yes, If Pain Regimen Started, Initiate Bowel Regimen: NA, Screen for Nausea/Vomitting: Yes Code Status: 11/07/16 04:31 CODE [Resuscitation Status: Active] [RES] Routine Comment: Resuscitation Status: DNR-Comfort Care-Arrest CODE [Resuscitation Status: Active] [RES] Routine Comment: Resuscitation Status: Full Code CODE [Resuscitation Status: Active] [RES] Routine Comment: Resuscitation Status: [id number] - Labs CBC & Chem 7: 11/19/16 05:55 11/19/16 05:55 Labs: Laboratory Results - last 24 hr 11/18/16 11/18/16 11/18/16 05:10 11:14 16:51 WBC RBC Hgb Hct MCV MCH MCHC RDW Plt Count MPV Immature Gran % Seg Neutrophils % Lymphocytes % Monocytes % Eosinophils % Basophils % Neutrophils # Lymphocytes # Monocytes # Eosinophils # Basophils # Sodium Potassium Chloride Carbon Dioxide BUN Creatinine Est GFR ( Amer) Est GFR (Non-Af Amer) BUN/Creatinine Ratio Glucose POC Glucose 118 H 120 H 248 H Calculated Osmolality Calcium Total Bilirubin AST ALT Alkaline Phosphatase Serum Total Protein Albumin Globulin Albumin/Globulin Ratio 11/18/16 11/19/16 11/19/16 23:10 05:55 05:55 WBC 9.3 RBC 4.85 Hgb 13.7 Hct 41.9 MCV 86.4 MCH 28.2 MCHC 32.7 RDW 15.3 H Plt Count 127 L MPV 11.8 Immature Gran % 0.5 Seg Neutrophils % 80.3 Lymphocytes % 9.4 Monocytes % 8.3 Eosinophils % 1.4 Basophils % 0.1 Neutrophils # 7.4 Lymphocytes # 0.9 Monocytes # 0.8 Eosinophils # 0.1 Basophils # 0.0 Sodium 141 Potassium 3.3 L Chloride 100 Carbon Dioxide 30 H BUN 113 H Creatinine 2.16 H Est GFR ( Amer) 28 L Est GFR (Non-Af Amer) 23 L BUN/Creatinine Ratio 52 H Glucose 121 H POC Glucose 175 H Calculated Osmolality 329 H Calcium 8.5 L Total Bilirubin 1.3 H D AST 21 ALT 40 Alkaline Phosphatase 53 Serum Total Protein 5.6 L Albumin 2.6 L Globulin 3.0 Albumin/Globulin Ratio 0.9 L - ABG Interpretation ABG results: ABG ABG pH 7.28 pH Units (7.32-7.45) L 11/18/16 04:08 ABG pCO2 83 mmHg (35-45) H* 11/18/16 04:08 ABG pO2 77 mmHg (85-104) L 11/18/16 04:08 ABG O2 Saturation 93 % (95-98) L 11/18/16 04:08 PT/INR, D-dimer PT 13.9 Seconds (9.4-12.1) H 11/06/16 17:19 D-Dimer 3921 ng/mLFEU (0-500) H 11/06/16 17:19 Consult Discharge Plan - Plan Referrals: Kay Palmer [Primary Care Provider] -
[2016-11-19] MEDS ORDERED: Bisacodyl 10 MG RECTAL SUPPOSITORY RC PRN (14:13)
[2016-11-19] MEDS ORDERED: D5% in Water 1,000 ML IV PRN (14:13)
[2016-11-19] MEDS ORDERED: *HR* Dextrose 50 % in Water (Syg) 50 ML SYRINGE IVP PRN (14:13)
[2016-11-19] MEDS ORDERED: Dextrose Gel 15 GM PO PRN ×2 (14:13)
[2016-11-19] MEDS ORDERED: Naloxone 0.4 MG/ML INJ IVP PRN (14:13)
[2016-11-19] MEDS: hydrOXYzine pamoate 25 MG CAPSULE PO PRN (17:23)
[2016-11-19] MEDS ORDERED: Sennosides/Docusate Sodium TABLET PO SCH (21:00)
[2016-11-20] MEDS: Ipratropium/Albuterol Neb 3 ML IH SCH ×7 (00:34→23:58)
[2016-11-20] MEDS: Sennosides/Docusate Sodium TABLET PO SCH ×3 (01:05→20:41)
[2016-11-20] MEDS: dilTIAZem HCl 60 MG TABLET PO SCH ×5 (01:05→23:52)
[2016-11-20] MEDS: Insulin LISPRO 300 UNITS/3 ML VIAL SQ SCH ×5 (02:30→23:51)
[2016-11-20] MEDS: *HR* Heparin 5,000 UNIT/ML VIAL SQ SCH ×3 (02:34→17:21)
[2016-11-20 04:35] LABS: Basophils % 0.1 %; Eosinophils # 0.1 K/mcL (0.0-0.6); Eosinophils % 1.9 %; Hematocrit 41.7 % (35.3-44.9); Hemoglobin 13.6 g/dL (11.5-15.4); Immature Granulocytes % 0.8 % (0-4); Lymphocytes # 0.9 K/mcL (0.6-4.6); Lymphocytes % 11.8 %; Mean Corpuscular HGB Conc 32.6 g/dL (31.6-35.5); Mean Corpuscular Hemoglobin 28.5 pg (28.0-33.3); Mean Corpuscular Volume 87.4 fL (83.0-100.0); Mean Platelet Volume 12.3 fL (9.4-12.4); Monocytes # 0.6 K/mcL (0.0-1.3); Monocytes % 7.8 %; Neutrophils # 5.6 K/mcL (1.6-8.9); Platelet Count 120 K/mcL (140-400); Red Blood Count 4.77 M/mcL (3.82-4.97); Red Cell Distribution Width 15.4 % (11.5-14.5); Segmented Neutrophils % 77.6 %
[2016-11-20 04:45] LABS: BUN/Creatinine Ratio 35 (6-26); Blood Urea Nitrogen 27 mg/dL (7-20); Calcium 8.9 mg/dL (8.6-10.8); Carbon Dioxide 26 mEq/L (19-29); Chloride 111 mEq/L (98-109); Glucose 80 mg/dL (70-99); Ionized Calcium 1.08 mmol/L (1.15-1.35); Magnesium 2.5 mg/dL (1.6-2.6); Osmolality,Calculated 308 (280-300); Sodium 147 mEq/L (136-145); eGFR For African Americans > 60 (> 60); eGFR For Non-African Americans > 60 (> 60)
[2016-11-20 04:46] LABS: Phosphorous 3.5 mg/dL (2.3-4.7)
--- NOTE | 2016-11-20 06:57 | Pulmonology Progress Note ---
<Khai Paniagua - Last Filed: 11/20/16 07:17> Date of Encounter: 11/20/16 Time of Encounter: 06:53 Assessment and Plan (1) Acute respiratory failure with hypercapnia Current Visit: Yes Status: Resolved Patient has been satting at 90% on 6L nasal cannula. Acute respirator failure likely secondary to pneumonia vs ARDS in setting of advanced COPD. Continue with prednisone starting with taper today by 10mg every three days, Continue breathing treatments. (2) Acute exacerbation of chronic obstructive pulmonary disease (COPD) Current Visit: Yes Status: Acute per assessment above (3) Acute kidney injury superimposed on CKD Current Visit: Yes Status: Resolved Resolved. Cr at 0.77. Urine output 3200mL/24hr, -1750mL fluid balance. Continue electrolyte protocol. Encourage patient to take oral fluids; however, difficulty due to physical deconditioning. Electrolytes mildly elevated. No current diuresis for past three days. PRICE on CKD unknown stage resolved. (4) Anxiety Current Visit: Yes Status: Acute Anxiety moderately controlled on Vistaril and ativan prn. 1 dose given early yesterday evening. Recommend counseling. (5) Cigarette smoker Current Visit: Yes Status: Chronic (6) Atrial fibrillation Current Visit: Yes Status: Acute Currently sinus rhythm. Continue PO cardizem. Qualifiers: Atrial fibrillation type: paroxysmal Qualified Code(s): I48.0 - Paroxysmal atrial fibrillation (7) Elevated troponin Current Visit: Yes Status: Acute (8) Invasive ductal carcinoma of breast Current Visit: Yes Status: Chronic Qualifiers: Laterality: right Qualified Code(s): C50.911 - Malignant neoplasm of unspecified site of right female breast (9) Hypertension Current Visit: Yes Status: Chronic Bp controlled and stable. Qualifiers: Hypertension type: essential hypertension Qualified Code(s): I10 - Essential (primary) hypertension (10) Physical deconditioning Current Visit: Yes Status: Acute Aggressive PT/OT and transfer to rehab facility upon discharge. 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 (11) Goals of care, counseling/discussion Current Visit: Yes Status: Acute Goals of care and counseling discussed. Transfer to step down 2N. (12) DVT prophylaxis Current Visit: Yes Status: Acute heparin sq for dvt ppx Subjective Principal diagnosis: Respiratory failure Interval history: Patient is alert and oriented x4, initially resting comfortably in bed. Reports cough and weakness which are improving. Patient also feels dehydrated, but doesn't have strength to get to her water. Patient reports passing gas, but no bowel movement. Denies fevers, chills, sweats, changes in vision or hearing, chest pain, shortness of breath, abdominal pain, dysuria, or loss of sensation. Patient is anxious to go home. Objective PUL Vital signs: Last Vital Signs Temp 98.5 F 11/20/16 03:59 Pulse 108 11/20/16 05:56 Resp 24 11/20/16 05:56 BP 135/78 11/20/16 05:56 Pulse Ox 90 L 11/20/16 05:56 General appearance: no acute distress, alert, other (oriented x4, resting comfortably) Eyes: nonicteric ENT: oropharynx dry Neck: supple Effort: normal Auscultation: bilateral: wheezes (mild) Cardiovascular: regular rate and rhythm Gastrointestinal: normoactive bowel sounds, soft, non-tender, non-distended Integumentary: normal Extremities: no cyanosis, no edema, pink and warm, pulses normal Musculoskeletal: no deformities normal mental status, non-focal exam, pupils equal and round, CN II-XII normal, motor strength normal and symmetric mood appropriate, affect normal Results - Laboratory Findings CBC and BMP: 11/20/16 04:13 11/20/16 04:13 ABG ABG pH 7.28 pH Units (7.32-7.45) L 11/18/16 04:08 ABG pCO2 83 mmHg (35-45) H* 11/18/16 04:08 ABG pO2 77 mmHg (85-104) L 11/18/16 04:08 ABG O2 Saturation 93 % (95-98) L 11/18/16 04:08 PT/INR, D-dimer PT 13.9 Seconds (9.4-12.1) H 11/06/16 17:19 D-Dimer 3921 ng/mLFEU (0-500) H 11/06/16 17:19 Abnormal lab findings: Abnormal lab results RDW 15.4 % (11.5-14.5) H 11/20/16 04:13 Plt Count 120 K/mcL (140-400) L 11/20/16 04:13 Nucleated RBCs/100 WBC 0.2 /100 WBC (0) H 11/11/16 03:00 Hypersegmented Neuts Present (Not Present) A 11/14/16 03:15 Toxic Granulation Present (Not Present) A 11/14/16 03:15 Large Platelets Present (Not Present) A 11/16/16 03:25 Immature Plt Fraction 6.9 % (1.1-6.1) H 11/06/16 17:19 PT 13.9 Seconds (9.4-12.1) H 11/06/16 17:19 APTT 72.0 Seconds (26.0-36.0) H 11/10/16 02:00 D-Dimer 3921 ng/mLFEU (0-500) H 11/06/16 17:19 ABG pH 7.28 pH Units (7.32-7.45) L 11/18/16 04:08 ABG pCO2 83 mmHg (35-45) H* 11/18/16 04:08 ABG pO2 77 mmHg (85-104) L 11/18/16 04:08 ABG HCO3 39.0 mEQ/L (21-27) H 11/18/16 04:08 ABG Total CO2 41.5 mEq/L (20-26) H 11/18/16 04:08 ABG O2 Saturation 93 % (95-98) L 11/18/16 04:08 ABG Base Excess 8.9 mEq/L (-2.0 to 3.0) H 11/18/16 04:08 Sodium 147 mEq/L (136-145) H 11/20/16 04:13 Potassium 5.0 mEq/L (3.5-4.5) H D 11/20/16 04:13 Chloride 111 mEq/L (98-109) H 11/20/16 04:13 BUN 27 mg/dL (7-20) H D 11/20/16 04:13 BUN/Creatinine Ratio 35 (6-26) H 11/20/16 04:13 POC Glucose 118 (58-89) H 11/19/16 23:28 Calculated Osmolality 308 (280-300) H 11/20/16 04:13 Ionized Calcium 1.08 mmol/L (1.15-1.35) L 11/20/16 04:13 Total Bilirubin 1.3 mg/dL (0.2-1.2) H D 11/19/16 05:55 Creatine Kinase 253 Units/L (29-168) H 11/10/16 07:25 Troponin I 0.17 ng/mL (0-0.03) H* 11/13/16 04:16 B-Natriuretic Peptide 2717 pg/mL (0-100) H 11/06/16 17:19 Serum Total Protein 5.6 g/dL (6.0-8.3) L 11/19/16 05:55 Albumin 2.6 g/dL (3.5-5.0) L 11/19/16 05:55 Albumin/Globulin Ratio 0.9 (1.1-2.2) L 11/19/16 05:55 Triglycerides 153 mg/dL (< 150) H 11/10/16 07:25 Lipase 132 Units/L (8-78) H 11/10/16 07:25 - Clinical Findings Intake & Output: Intake & Output 11/19/16 11/19/16 11/20/16 15:59 23:59 07:59 Intake Total 400 / 400 0 / 0 Output Total 225 / 225 900 / 900 850 / 850 Balance 175 / 175 -900 / -900 -850 / -850 Weight 128.99 kg Consult Discharge Plan - Plan Referrals: Kay Palmer [Primary Care Provider] - <Roderick Jean - Last Filed: 11/20/16 09:29> Objective PUL Vital signs: Last Vital Signs Temp 97.6 F 11/20/16 08:34 Pulse 104 11/20/16 08:34 Resp 22 11/20/16 08:34 BP 117/89 11/20/16 08:34 Pulse Ox 93 L 11/20/16 08:34 Results - Laboratory Findings CBC and BMP: 11/20/16 04:13 11/20/16 04:13 ABG ABG pH 7.28 pH Units (7.32-7.45) L 11/18/16 04:08 ABG pCO2 83 mmHg (35-45) H* 11/18/16 04:08 ABG pO2 77 mmHg (85-104) L 11/18/16 04:08 ABG O2 Saturation 93 % (95-98) L 11/18/16 04:08 PT/INR, D-dimer PT 13.9 Seconds (9.4-12.1) H 11/06/16 17:19 D-Dimer 3921 ng/mLFEU (0-500) H 11/06/16 17:19 Abnormal lab findings: Abnormal lab results RDW 15.4 % (11.5-14.5) H 11/20/16 04:13 Plt Count 120 K/mcL (140-400) L 11/20/16 04:13 Nucleated RBCs/100 WBC 0.2 /100 WBC (0) H 11/11/16 03:00 Hypersegmented Neuts Present (Not Present) A 11/14/16 03:15 Toxic Granulation Present (Not Present) A 11/14/16 03:15 Large Platelets Present (Not Present) A 11/16/16 03:25 Immature Plt Fraction 6.9 % (1.1-6.1) H 11/06/16 17:19 PT 13.9 Seconds (9.4-12.1) H 11/06/16 17:19 APTT 72.0 Seconds (26.0-36.0) H 11/10/16 02:00 D-Dimer 3921 ng/mLFEU (0-500) H 11/06/16 17:19 ABG pH 7.28 pH Units (7.32-7.45) L 11/18/16 04:08 ABG pCO2 83 mmHg (35-45) H* 11/18/16 04:08 ABG pO2 77 mmHg (85-104) L 11/18/16 04:08 ABG HCO3 39.0 mEQ/L (21-27) H 11/18/16 04:08 ABG Total CO2 41.5 mEq/L (20-26) H 11/18/16 04:08 ABG O2 Saturation 93 % (95-98) L 11/18/16 04:08 ABG Base Excess 8.9 mEq/L (-2.0 to 3.0) H 11/18/16 04:08 Sodium 147 mEq/L (136-145) H 11/20/16 04:13 Potassium 5.0 mEq/L (3.5-4.5) H D 11/20/16 04:13 Chloride 111 mEq/L (98-109) H 11/20/16 04:13 BUN 27 mg/dL (7-20) H D 11/20/16 04:13 BUN/Creatinine Ratio 35 (6-26) H 11/20/16 04:13 POC Glucose 118 (58-89) H 11/19/16 23:28 Calculated Osmolality 308 (280-300) H 11/20/16 04:13 Ionized Calcium 1.08 mmol/L (1.15-1.35) L 11/20/16 04:13 Total Bilirubin 1.3 mg/dL (0.2-1.2) H D 11/19/16 05:55 Creatine Kinase 253 Units/L (29-168) H 11/10/16 07:25 Troponin I 0.17 ng/mL (0-0.03) H* 11/13/16 04:16 B-Natriuretic Peptide 2717 pg/mL (0-100) H 11/06/16 17:19 Serum Total Protein 5.6 g/dL (6.0-8.3) L 11/19/16 05:55 Albumin 2.6 g/dL (3.5-5.0) L 11/19/16 05:55 Albumin/Globulin Ratio 0.9 (1.1-2.2) L 11/19/16 05:55 Triglycerides 153 mg/dL (< 150) H 11/10/16 07:25 Lipase 132 Units/L (8-78) H 11/10/16 07:25 - Clinical Findings Intake & Output: Intake & Output 11/19/16 11/20/16 11/20/16 23:59 07:59 15:59 Intake Total 0 / 0 Output Total 900 / 900 850 / 850 Balance -900 / -900 -850 / -850 Weight 128.99 kg 128 kg - Attending Attestation The patient was transferred out of the ICU prior to my evaluation
[2016-11-20] MEDS: Aspirin 81 MG TAB.CHEW GTUBE SCH (08:16)
[2016-11-20] MEDS: predniSONE 20 MG TABLET PO SCH (08:16)
[2016-11-20] MEDS: Nicotine 21 MG PATCH.TD24 TD SCH (08:17)
[2016-11-20] MEDS: Budesonide/Formoterol 160/4.5 MDI IH SCH ×2 (08:27→21:04)
--- NOTE | 2016-11-20 09:49 | Palliative Progress Note ---
Date of Encounter: 11/20/16 Time of Encounter: 09:20 - Assessment and plan (1) Pain Current Visit: Yes Status: Acute Assessment and plan: Off the vent off all sedation, no complaints of pain at this time continue to watch. (2) Dyspnea Current Visit: Yes Status: Acute Assessment and plan: Off the ventilator not experiencing any dyspnea at this time, will not be reintubated will continue to watch and follow. she continues to improve cont present meds Qualifiers: Dyspnea type: shortness of breath Qualified Code(s): R06.02 - Shortness of breath (3) Acute exacerbation of chronic obstructive pulmonary disease (COPD) Current Visit: Yes Status: Acute Assessment and plan: Markedly improved off the ventilator continue to watch. Put in order to qualify for home O2. will cont to watch will prob need rehab (4) Acute respiratory failure with hypercapnia Current Visit: Yes Status: Resolved Assessment and plan: Off the vent, continue current medications. (5) Breast cancer Current Visit: No Status: Acute Assessment and plan: 7 plan to restart care when she is able. Qualifiers: Breast location: upper outer quadrant of breast Laterality: right (6) Goals of care, counseling/discussion Current Visit: Yes Status: Acute - Time Spent With Patient Total time spent is greater than 50% in coordination of care (as documented) at patient's floor/unit and/or counseling patient: - Subjective Interval history: Extubated, awake and alert no pain no difficulty breathing at this time. she si swallowing well, she believes she has had a bm . none is recorded however - Constitutional Vitals: Abnormal lab results RDW 15.4 % (11.5-14.5) H 11/20/16 04:13 Plt Count 120 K/mcL (140-400) L 11/20/16 04:13 Nucleated RBCs/100 WBC 0.2 /100 WBC (0) H 11/11/16 03:00 Hypersegmented Neuts Present (Not Present) A 11/14/16 03:15 Toxic Granulation Present (Not Present) A 11/14/16 03:15 Large Platelets Present (Not Present) A 11/16/16 03:25 Immature Plt Fraction 6.9 % (1.1-6.1) H 11/06/16 17:19 PT 13.9 Seconds (9.4-12.1) H 11/06/16 17:19 APTT 72.0 Seconds (26.0-36.0) H 11/10/16 02:00 D-Dimer 3921 ng/mLFEU (0-500) H 11/06/16 17:19 ABG pH 7.28 pH Units (7.32-7.45) L 11/18/16 04:08 ABG pCO2 83 mmHg (35-45) H* 11/18/16 04:08 ABG pO2 77 mmHg (85-104) L 11/18/16 04:08 ABG HCO3 39.0 mEQ/L (21-27) H 11/18/16 04:08 ABG Total CO2 41.5 mEq/L (20-26) H 11/18/16 04:08 ABG O2 Saturation 93 % (95-98) L 11/18/16 04:08 ABG Base Excess 8.9 mEq/L (-2.0 to 3.0) H 11/18/16 04:08 Sodium 147 mEq/L (136-145) H 11/20/16 04:13 Potassium 5.0 mEq/L (3.5-4.5) H D 11/20/16 04:13 Chloride 111 mEq/L (98-109) H 11/20/16 04:13 BUN 27 mg/dL (7-20) H D 11/20/16 04:13 BUN/Creatinine Ratio 35 (6-26) H 11/20/16 04:13 POC Glucose 118 (58-89) H 11/19/16 23:28 Calculated Osmolality 308 (280-300) H 11/20/16 04:13 Ionized Calcium 1.08 mmol/L (1.15-1.35) L 11/20/16 04:13 Total Bilirubin 1.3 mg/dL (0.2-1.2) H D 11/19/16 05:55 Creatine Kinase 253 Units/L (29-168) H 11/10/16 07:25 Troponin I 0.17 ng/mL (0-0.03) H* 11/13/16 04:16 B-Natriuretic Peptide 2717 pg/mL (0-100) H 11/06/16 17:19 Serum Total Protein 5.6 g/dL (6.0-8.3) L 11/19/16 05:55 Albumin 2.6 g/dL (3.5-5.0) L 11/19/16 05:55 Albumin/Globulin Ratio 0.9 (1.1-2.2) L 11/19/16 05:55 Triglycerides 153 mg/dL (< 150) H 11/10/16 07:25 Lipase 132 Units/L (8-78) H 11/10/16 07:25 General appearance: Present: no acute distress - Head Head exam: Present: atraumatic, normal inspection - Eye Eye exam: Present: normal appearance (Somewhat red) - ENT ENT exam: Present: mucous membranes moist - Respiratory Respiratory exam: Present: decreased breath sounds, wheezes - Cardiovascular Cardiovascular exam: Present: RRR, tachycardia - GI/Abdominal GI/Abdominal exam: Present: normal bowel sounds, soft. Absent: tenderness - Extremities Exam Extremities exam: Present: normal inspection, pedal edema. Absent: tenderness - Neurological Exam Neurological exam: Present: alert, oriented X3 - Psychiatric Psychiatric exam: Present: normal affect, normal mood. Absent: agitated, anxious - Skin Skin exam: Present: dry, warm Palliative Quality Palliative Quality: Screen for Code Status: Yes (Further screening awaiting family.), Screen for Goals of Care: Yes (Further screening awaiting family.), Screen for Pain: Yes, If Pain Regimen Started, Initiate Bowel Regimen: Yes, Screen for Nausea/Vomitting: Yes Code Status: 11/07/16 04:31 CODE [Resuscitation Status: Active] [RES] Routine Comment: Resuscitation Status: DNR-Comfort Care-Arrest CODE [Resuscitation Status: Active] [RES] Routine Comment: Resuscitation Status: Full Code CODE [Resuscitation Status: Active] [RES] Routine Comment: Resuscitation Status: [id number] - Labs CBC & Chem 7: 11/20/16 04:13 11/20/16 04:13 Labs: Laboratory Results - last 24 hr 11/19/16 11/19/16 11/19/16 05:34 11:13 19:38 WBC RBC Hgb Hct MCV MCH MCHC RDW Plt Count MPV Immature Gran % Seg Neutrophils % Lymphocytes % Monocytes % Eosinophils % Basophils % Neutrophils # Lymphocytes # Monocytes # Eosinophils # Basophils # Sodium Potassium Chloride Carbon Dioxide BUN Creatinine Est GFR ( Amer) Est GFR (Non-Af Amer) BUN/Creatinine Ratio Glucose POC Glucose 105 H 236 H 208 H Calculated Osmolality Calcium Ionized Calcium Phosphorus Magnesium 11/19/16 11/20/16 11/20/16 23:28 04:13 04:13 WBC 7.2 RBC 4.77 Hgb 13.6 Hct 41.7 MCV 87.4 MCH 28.5 MCHC 32.6 RDW 15.4 H Plt Count 120 L MPV 12.3 Immature Gran % 0.8 Seg Neutrophils % 77.6 Lymphocytes % 11.8 Monocytes % 7.8 Eosinophils % 1.9 Basophils % 0.1 Neutrophils # 5.6 Lymphocytes # 0.9 Monocytes # 0.6 Eosinophils # 0.1 Basophils # 0.0 Sodium 147 H Potassium 5.0 H D Chloride 111 H Carbon Dioxide 26 BUN 27 H D Creatinine 0.77 D Est GFR ( Amer) > 60 Est GFR (Non-Af Amer) > 60 BUN/Creatinine Ratio 35 H Glucose 80 POC Glucose 118 H Calculated Osmolality 308 H Calcium 8.9 Ionized Calcium 1.08 L Phosphorus 3.5 Magnesium 2.5 - ABG Interpretation ABG results: ABG ABG pH 7.28 pH Units (7.32-7.45) L 11/18/16 04:08 ABG pCO2 83 mmHg (35-45) H* 11/18/16 04:08 ABG pO2 77 mmHg (85-104) L 11/18/16 04:08 ABG O2 Saturation 93 % (95-98) L 11/18/16 04:08 PT/INR, D-dimer PT 13.9 Seconds (9.4-12.1) H 11/06/16 17:19 D-Dimer 3921 ng/mLFEU (0-500) H 11/06/16 17:19 Consult Discharge Plan - Plan Referrals: Kay Palmer [Primary Care Provider] -
[2016-11-20] MEDS ORDERED: clonazePAM 0.5 MG TABLET PO PRN (12:03)
--- NOTE | 2016-11-20 14:37 | Internal Med Progress Note ---
Date of Encounter: 11/20/16 Time of Encounter: 11:45 - Assessment and plan (1) Acute respiratory failure with hypercapnia Current Visit: Yes Status: Resolved Assessment and plan: Improving. Continue O2 supplementation. Nebs. Taper steroids. Monitor sats. (2) Acute exacerbation of chronic obstructive pulmonary disease (COPD) Current Visit: Yes Status: Acute Assessment and plan: Continue current management as above. (3) Anxiety Current Visit: Yes Status: Acute Assessment and plan: Will start patient on Lexapro and oral clonazepam. Stop intravenous Ativan. (4) Atrial fibrillation Current Visit: Yes Status: Chronic Assessment and plan: Rate controlled. Continue diltiazem. Qualifiers: Atrial fibrillation type: paroxysmal Qualified Code(s): I48.0 - Paroxysmal atrial fibrillation (5) Elevated troponin Current Visit: Yes Status: Acute (6) Goals of care, counseling/discussion Current Visit: No Status: Acute (7) Physical deconditioning Current Visit: Yes Status: Acute Assessment and plan: Continue PTOT (8) Cigarette smoker Current Visit: No Status: Chronic Assessment and plan: Has nicotine patch on. (9) Invasive ductal carcinoma of breast Current Visit: No Status: Chronic Assessment and plan: Follow-up with oncology after discharge Qualifiers: Laterality: right Qualified Code(s): C50.911 - Malignant neoplasm of unspecified site of right female breast (10) Acute kidney injury superimposed on CKD Current Visit: No Status: Resolved (11) Hypertension Current Visit: Yes Status: Chronic Assessment and plan: Blood pressure elevated currently likely due to anxiety. Blood pressure has been in control otherwise. Qualifiers: Hypertension type: essential hypertension Qualified Code(s): I10 - Essential (primary) hypertension (12) DVT prophylaxis Current Visit: Yes Status: Acute Assessment and plan: On heparin - Subjective Interval history: Patient is anxious and teary. Her breathing is better. Denies any chest pain. Denies any nausea or vomiting. No palpitations. - Constitutional Vitals: Temp Pulse Resp BP Pulse Ox 97.6 F 99 18 165/100 91 L 11/20/16 08:34 11/20/16 11:00 11/20/16 11:34 11/20/16 11:34 11/20/16 11:34 General appearance: Present: cooperative, mild distress, A&O X 3, morbidly obese , answers questions appropriately - Neck Neck exam general surgery: Present: supple, trachea midline. Absent: lymphadenopathy - Respiratory Respiratory exam: Present: prolonged expiratory phase, wheezes. Absent: accessory muscle use, rales, rhonchi - Cardiovascular Cardiovascular exam: Present: RRR, +S1, +S2. Absent: diastolic murmur, gallop, rubs, systolic murmur - GI/Abdominal GI/Abdominal exam: Present: normal bowel sounds, soft, no peritoneal signs. Absent: distended, tenderness - Extremities Exam Extremities exam: Present: warm, radial pulses palpable and symetrical. Absent : calf tenderness, cyanotic, pedal edema - Neurological Exam Neurological exam: Present: oriented X3, no focal deficits. Absent: facial droop, speech deficit - Psychiatric Psychiatric exam: Present: anxious, flat affect - Skin Skin exam: Present: dry, intact Internal Medicine: Result - Labs CBC & Chem 7: 11/20/16 04:13 11/20/16 04:13 Labs: Short CBC 11/20/16 Range/Units 04:13 WBC 7.2 (4.3-11.1) K/mcL Hgb 13.6 (11.5-15.4) g/dL Hct 41.7 (35.3-44.9) % Plt Count 120 L (140-400) K/mcL Neutrophils # 5.6 (1.6-8.9) K/mcL BMP 11/20/16 04:13 Sodium 147 H Potassium 5.0 H D Chloride 111 H Carbon Dioxide 26 BUN 27 H D Creatinine 0.77 D Glucose 80 Calcium 8.9 - ABG Interpretation ABG results: ABG ABG pH 7.28 pH Units (7.32-7.45) L 11/18/16 04:08 ABG pCO2 83 mmHg (35-45) H* 11/18/16 04:08 ABG pO2 77 mmHg (85-104) L 11/18/16 04:08 ABG O2 Saturation 93 % (95-98) L 11/18/16 04:08 PT/INR, D-dimer PT 13.9 Seconds (9.4-12.1) H 11/06/16 17:19 D-Dimer 3921 ng/mLFEU (0-500) H 11/06/16 17:19 Consult Discharge Plan - Plan Referrals: Kay Palmer [Primary Care Provider] - (patient is going to [facility]CF, no follow up appointment is needed) - Attending Attestation This document has been at least partially created by [employer] voice recognition technology by Dr. Anders. Errors in grammar, wording or other phrases may exist. If errors are found after the documentation is signed, they will be addressed individually in the addendum section of this document when appropriate. Medical Decision Making - MDM Narrative Medical decision making narrative: Moderate risk for complications - Medical Records Medical records reviewed: Yes I reviewed the patient's medical records. - Lab Data Lab results reviewed: Yes I reviewed the patient's lab results. Result diagrams: 11/20/16 04:13 11/20/16 04:13 Lab Results 11/06/16 11/06/16 11/06/16 Range/Units 21:13 21:25 23:09 WBC (4.3-11.1) K/mcL RBC (3.82-4.97) M/mcL Hgb (11.5-15.4) g/dL Hct (35.3-44.9) % MCV (83.0-100.0) fL MCH (28.0-33.3) pg MCHC (31.6-35.5) g/dL RDW (11.5-14.5) % Plt Count (140-400) K/mcL MPV (9.4-12.4) fL Immature Gran % (0-4) % Seg Neutrophils % % Band Neutrophils % (0-4) % Lymphocytes % % Monocytes % % Eosinophils % % Basophils % % Neutrophils # (1.6-8.9) K/mcL Lymphocytes # (0.6-4.6) K/mcL Monocytes # (0.0-1.3) K/mcL Eosinophils # (0.0-0.6) K/mcL Basophils # (0.0-0.2) K/mcL Nucleated RBCs/100 WBC (0) /100 WBC Hypersegmented Neuts (Not Present) Toxic Granulation (Not Present) Platelet Estimate (Normal) Large Platelets (Not Present) APTT (26.0-36.0) Seconds ABG pH 7.13 L* (7.32-7.45) pH Units ABG pCO2 111 H* (35-45) mmHg ABG pO2 94 (85-104) mmHg ABG HCO3 36.9 H (21-27) mEQ/L ABG Total CO2 40.3 H (20-26) mEq/L ABG O2 Saturation 94 L (95-98) % ABG Base Excess 2.7 (-2.0 to 3.0) mEq/L Respiration Rate Blood Gas Modality BIPAP Inspired O2 100 % Tidal Volume cc PEEP cm H2O Sodium (136-145) mEq/L Potassium (3.5-4.5) mEq/L Chloride (98-109) mEq/L Carbon Dioxide (19-29) mEq/L BUN (7-20) mg/dL Creatinine (0.57-1.11) mg/dL Est GFR ( Amer) (> 60) Est GFR (Non-Af Amer) (> 60) BUN/Creatinine Ratio (6-26) Glucose (70-99) mg/dL POC Glucose 118 H (58-89) Calculated Osmolality (280-300) Lactic Acid (0.5-2.2) mmol/L Calcium (8.6-10.8) mg/dL Ionized Calcium (1.15-1.35) mmol/L Phosphorus (2.3-4.7) mg/dL Magnesium (1.6-2.6) mg/dL Total Bilirubin (0.2-1.2) mg/dL Direct Bilirubin (0.0-0.5) mg/dL Indirect Bilirubin (0.0-1.2) mg/dL AST (5-34) Units/L ALT (0-55) Units/L Alkaline Phosphatase (38-126) Units/L Creatine Kinase (29-168) Units/L Troponin I 0.78 H* (0-0.03) ng/mL Serum Total Protein (6.0-8.3) g/dL Albumin (3.5-5.0) g/dL Globulin (2.4-3.5) g/dL Albumin/Globulin Ratio (1.1-2.2) Triglycerides (< 150) mg/dL Lipase (8-78) Units/L TSH (0.350-4.840) mcIU/mL Free T4 (0.70-1.48) ng/dl Free T3 (1.71-3.71) pg/mL Urine Color (Yellow) Urine Clarity (Clear) Urine pH (5.0-8.0) pH Units Ur Specific [place] (1.010-1.025) Urine Protein (Neg-Trace) mg/dL Urine Glucose (UA) (Normal) mg/dL Urine Ketones (Negative) mg/dL Urine Blood (Negative) Urine Nitrite (Negative) Urine Bilirubin (Negative) Urine Urobilinogen (Normal) mg/dL Ur Leukocyte Esterase (Negative) Urine Microscopic RBC (0-3) per hpf Urine Microscopic WBC (0-3) per hpf Ur Squamous Epith Cells (None-Few) per lpf Urine Bacteria (None-Few) per hpf Hyaline Casts (None-Few) per lpf Chlamy pneumoniae PCR (Not Detect) Adenovirus (PCR) (Not Detect) B. pertussis DNA (PCR) (Not Detect) Coronavirus OC43 (PCR) (Not Detect) Coronavirus HKU1 (PCR) (Not Detect) Coronavirus 229E (PCR) (Not Detect) Coronavirus NL63 (PCR) (Not Detect) Human Metapneumovirus (Not Detect) Influenza A (H1) PCR (Not Detect) Influ A (H1N1/09) PCR (Not Detect) Influenza A (H3) PCR (Not Detect) Influenza A Untype (PCR) (Not Detect) Influenza Type B (PCR) (Not Detect) M.pneumoniae DNA (PCR) (Not Detect) Parainfluenza 1 (PCR) (Not Detect) Parainfluenza 2 (PCR) (Not Detect) Parainfluenza 3 (PCR) (Not Detect) Parainfluenza 4 (PCR) (Not Detect) RSV (PCR) (Not Detect) Entero/Rhino (PCR) (Not Detect) 11/07/16 11/07/16 11/07/16 Range/Units 00:18 02:12 02:41 WBC (4.3-11.1) K/mcL RBC (3.82-4.97) M/mcL Hgb (11.5-15.4) g/dL Hct (35.3-44.9) % MCV (83.0-100.0) fL MCH (28.0-33.3) pg MCHC (31.6-35.5) g/dL RDW (11.5-14.5) % Plt Count (140-400) K/mcL MPV (9.4-12.4) fL Immature Gran % (0-4) % Seg Neutrophils % % Band Neutrophils % (0-4) % Lymphocytes % % Monocytes % % Eosinophils % % Basophils % % Neutrophils # (1.6-8.9) K/mcL Lymphocytes # (0.6-4.6) K/mcL Monocytes # (0.0-1.3) K/mcL Eosinophils # (0.0-0.6) K/mcL Basophils # (0.0-0.2) K/mcL Nucleated RBCs/100 WBC (0) /100 WBC Hypersegmented Neuts (Not Present) Toxic Granulation (Not Present) Platelet Estimate (Normal) Large Platelets (Not Present) APTT (26.0-36.0) Seconds ABG pH 7.46 H D (7.32-7.45) pH Units ABG pCO2 46 H D (35-45) mmHg ABG pO2 53 L (85-104) mmHg ABG HCO3 32.7 H (21-27) mEQ/L ABG Total CO2 34.1 H (20-26) mEq/L ABG O2 Saturation 89 L (95-98) % ABG Base Excess 7.6 H (-2.0 to 3.0) mEq/L Respiration Rate Blood Gas Modality ASSIST CONTROL Inspired O2 100 % Tidal Volume cc PEEP cm H2O Sodium (136-145) mEq/L Potassium (3.5-4.5) mEq/L Chloride (98-109) mEq/L Carbon Dioxide (19-29) mEq/L BUN (7-20) mg/dL Creatinine (0.57-1.11) mg/dL Est GFR ( Amer) (> 60) Est GFR (Non-Af Amer) (> 60) BUN/Creatinine Ratio (6-26) Glucose (70-99) mg/dL POC Glucose 142 H (58-89) Calculated Osmolality (280-300) Lactic Acid (0.5-2.2) mmol/L Calcium (8.6-10.8) mg/dL Ionized Calcium (1.15-1.35) mmol/L Phosphorus (2.3-4.7) mg/dL Magnesium (1.6-2.6) mg/dL Total Bilirubin (0.2-1.2) mg/dL Direct Bilirubin (0.0-0.5) mg/dL Indirect Bilirubin (0.0-1.2) mg/dL AST (5-34) Units/L ALT (0-55) Units/L Alkaline Phosphatase (38-126) Units/L Creatine Kinase (29-168) Units/L Troponin I (0-0.03) ng/mL Serum Total Protein (6.0-8.3) g/dL Albumin (3.5-5.0) g/dL Globulin (2.4-3.5) g/dL Albumin/Globulin Ratio (1.1-2.2) Triglycerides (< 150) mg/dL Lipase (8-78) Units/L TSH (0.350-4.840) mcIU/mL Free T4 (0.70-1.48) ng/dl Free T3 (1.71-3.71) pg/mL Urine Color Yellow (Yellow) Urine Clarity Clear (Clear) Urine pH 6.0 (5.0-8.0) pH Units Ur Specific [place] 1.012 (1.010-1.025) Urine Protein Trace (Neg-Trace) mg/dL Urine Glucose (UA) Normal (Normal) mg/dL Urine Ketones Negative (Negative) mg/dL Urine Blood Negative (Negative) Urine Nitrite Negative (Negative) Urine Bilirubin Negative (Negative) Urine Urobilinogen Normal (Normal) mg/dL Ur Leukocyte Esterase Negative (Negative) Urine Microscopic RBC 0-3 (0-3) per hpf Urine Microscopic WBC 0-3 (0-3) per hpf Ur Squamous Epith Cells Few (None-Few) per lpf Urine Bacteria None Seen (None-Few) per hpf Hyaline Casts None Seen (None-Few) per lpf Chlamy pneumoniae PCR (Not Detect) Adenovirus (PCR) (Not Detect) B. pertussis DNA (PCR) (Not Detect) Coronavirus OC43 (PCR) (Not Detect) Coronavirus HKU1 (PCR) (Not Detect) Coronavirus 229E (PCR) (Not Detect) Coronavirus NL63 (PCR) (Not Detect) Human Metapneumovirus (Not Detect) Influenza A (H1) PCR (Not Detect) Influ A (H1N1/09) PCR (Not Detect) Influenza A (H3) PCR (Not Detect) Influenza A Untype (PCR) (Not Detect) Influenza Type B (PCR) (Not Detect) M.pneumoniae DNA (PCR) (Not Detect) Parainfluenza 1 (PCR) (Not Detect) Parainfluenza 2 (PCR) (Not Detect) Parainfluenza 3 (PCR) (Not Detect) Parainfluenza 4 (PCR) (Not Detect) RSV (PCR) (Not Detect) Entero/Rhino (PCR) (Not Detect) 11/07/16 11/07/16 11/07/16 Range/Units 02:51 02:51 02:51 WBC 12.8 H (4.3-11.1) K/mcL RBC 5.10 H (3.82-4.97) M/mcL Hgb 14.4 (11.5-15.4) g/dL Hct 47.2 H (35.3-44.9) % MCV 92.5 (83.0-100.0) fL MCH 28.2 (28.0-33.3) pg MCHC 30.5 L (31.6-35.5) g/dL RDW 15.8 H (11.5-14.5) % Plt Count 189 (140-400) K/mcL MPV 10.9 (9.4-12.4) fL Immature Gran % 2.0 (0-4) % Seg Neutrophils % 93.3 % Band Neutrophils % (0-4) % Lymphocytes % 2.1 % Monocytes % 2.3 % Eosinophils % 0.0 % Basophils % 0.3 % Neutrophils # 12.0 H (1.6-8.9) K/mcL Lymphocytes # 0.3 L (0.6-4.6) K/mcL Monocytes # 0.3 (0.0-1.3) K/mcL Eosinophils # 0.0 (0.0-0.6) K/mcL Basophils # 0.0 (0.0-0.2) K/mcL Nucleated RBCs/100 WBC 2.1 H (0) /100 WBC Hypersegmented Neuts (Not Present) Toxic Granulation (Not Present) Platelet Estimate (Normal) Large Platelets (Not Present) APTT 65.2 H D (26.0-36.0) Seconds ABG pH (7.32-7.45) pH Units ABG pCO2 (35-45) mmHg ABG pO2 (85-104) mmHg ABG HCO3 (21-27) mEQ/L ABG Total CO2 (20-26) mEq/L ABG O2 Saturation (95-98) % ABG Base Excess (-2.0 to 3.0) mEq/L Respiration Rate Blood Gas Modality Inspired O2 % Tidal Volume cc PEEP cm H2O Sodium 135 L (136-145) mEq/L Potassium 5.4 H (3.5-4.5) mEq/L Chloride 99 (98-109) mEq/L Carbon Dioxide 21 (19-29) mEq/L BUN 54 H (7-20) mg/dL Creatinine 2.52 H (0.57-1.11) mg/dL Est GFR ( Amer) 24 L (> 60) Est GFR (Non-Af Amer) 19 L (> 60) BUN/Creatinine Ratio 21 (6-26) Glucose 139 H (70-99) mg/dL POC Glucose (58-89) Calculated Osmolality 297 (280-300) Lactic Acid (0.5-2.2) mmol/L Calcium 8.4 L (8.6-10.8) mg/dL Ionized Calcium (1.15-1.35) mmol/L Phosphorus 4.8 H (2.3-4.7) mg/dL Magnesium 2.3 (1.6-2.6) mg/dL Total Bilirubin (0.2-1.2) mg/dL Direct Bilirubin (0.0-0.5) mg/dL Indirect Bilirubin (0.0-1.2) mg/dL AST (5-34) Units/L ALT (0-55) Units/L Alkaline Phosphatase (38-126) Units/L Creatine Kinase (29-168) Units/L Troponin I (0-0.03) ng/mL Serum Total Protein (6.0-8.3) g/dL Albumin (3.5-5.0) g/dL Globulin (2.4-3.5) g/dL Albumin/Globulin Ratio (1.1-2.2) Triglycerides (< 150) mg/dL Lipase (8-78) Units/L TSH (0.350-4.840) mcIU/mL Free T4 (0.70-1.48) ng/dl Free T3 (1.71-3.71) pg/mL Urine Color (Yellow) Urine Clarity (Clear) Urine pH (5.0-8.0) pH Units Ur Specific [place] (1.010-1.025) Urine Protein (Neg-Trace) mg/dL Urine Glucose (UA) (Normal) mg/dL Urine Ketones (Negative) mg/dL Urine Blood (Negative) Urine Nitrite (Negative) Urine Bilirubin (Negative) Urine Urobilinogen (Normal) mg/dL Ur Leukocyte Esterase (Negative) Urine Microscopic RBC (0-3) per hpf Urine Microscopic WBC (0-3) per hpf Ur Squamous Epith Cells (None-Few) per lpf Urine Bacteria (None-Few) per hpf Hyaline Casts (None-Few) per lpf Chlamy pneumoniae PCR (Not Detect) Adenovirus (PCR) (Not Detect) B. pertussis DNA (PCR) (Not Detect) Coronavirus OC43 (PCR) (Not Detect) Coronavirus HKU1 (PCR) (Not Detect) Coronavirus 229E (PCR) (Not Detect) Coronavirus NL63 (PCR) (Not Detect) Human Metapneumovirus (Not Detect) Influenza A (H1) PCR (Not Detect) Influ A (H1N1/09) PCR (Not Detect) Influenza A (H3) PCR (Not Detect) Influenza A Untype (PCR) (Not Detect) Influenza Type B (PCR) (Not Detect) M.pneumoniae DNA (PCR) (Not Detect) Parainfluenza 1 (PCR) (Not Detect) Parainfluenza 2 (PCR) (Not Detect) Parainfluenza 3 (PCR) (Not Detect) Parainfluenza 4 (PCR) (Not Detect) RSV (PCR) (Not Detect) Entero/Rhino (PCR) (Not Detect) 11/07/16 11/07/16 11/07/16 Range/Units 05:33 07:52 09:08 WBC (4.3-11.1) K/mcL RBC (3.82-4.97) M/mcL Hgb (11.5-15.4) g/dL Hct (35.3-44.9) % MCV (83.0-100.0) fL MCH (28.0-33.3) pg MCHC (31.6-35.5) g/dL RDW (11.5-14.5) % Plt Count (140-400) K/mcL MPV (9.4-12.4) fL Immature Gran % (0-4) % Seg Neutrophils % % Band Neutrophils % (0-4) % Lymphocytes % % Monocytes % % Eosinophils % % Basophils % % Neutrophils # (1.6-8.9) K/mcL Lymphocytes # (0.6-4.6) K/mcL Monocytes # (0.0-1.3) K/mcL Eosinophils # (0.0-0.6) K/mcL Basophils # (0.0-0.2) K/mcL Nucleated RBCs/100 WBC (0) /100 WBC Hypersegmented Neuts (Not Present) Toxic Granulation (Not Present) Platelet Estimate (Normal) Large Platelets (Not Present) APTT 108.8 H D (26.0-36.0) Seconds ABG pH 7.59 H D (7.32-7.45) pH Units ABG pCO2 31 L (35-45) mmHg ABG pO2 67 L (85-104) mmHg ABG HCO3 29.7 H (21-27) mEQ/L ABG Total CO2 30.7 H (20-26) mEq/L ABG O2 Saturation 96 (95-98) % ABG Base Excess 8.3 H (-2.0 to 3.0) mEq/L Respiration Rate Blood Gas Modality ASSIST CONTROL Inspired O2 100 % Tidal Volume cc PEEP cm H2O Sodium (136-145) mEq/L Potassium (3.5-4.5) mEq/L Chloride (98-109) mEq/L Carbon Dioxide (19-29) mEq/L BUN (7-20) mg/dL Creatinine (0.57-1.11) mg/dL Est GFR ( Amer) (> 60) Est GFR (Non-Af Amer) (> 60) BUN/Creatinine Ratio (6-26) Glucose (70-99) mg/dL POC Glucose (58-89) Calculated Osmolality (280-300) Lactic Acid (0.5-2.2) mmol/L Calcium (8.6-10.8) mg/dL Ionized Calcium (1.15-1.35) mmol/L Phosphorus (2.3-4.7) mg/dL Magnesium (1.6-2.6) mg/dL Total Bilirubin (0.2-1.2) mg/dL Direct Bilirubin (0.0-0.5) mg/dL Indirect Bilirubin (0.0-1.2) mg/dL AST (5-34) Units/L ALT (0-55) Units/L Alkaline Phosphatase (38-126) Units/L Creatine Kinase (29-168) Units/L Troponin I 0.50 H* (0-0.03) ng/mL Serum Total Protein (6.0-8.3) g/dL Albumin (3.5-5.0) g/dL Globulin (2.4-3.5) g/dL Albumin/Globulin Ratio (1.1-2.2) Triglycerides (< 150) mg/dL Lipase (8-78) Units/L TSH (0.350-4.840) mcIU/mL Free T4 (0.70-1.48) ng/dl Free T3 (1.71-3.71) pg/mL Urine Color (Yellow) Urine Clarity (Clear) Urine pH (5.0-8.0) pH Units Ur Specific [place] (1.010-1.025) Urine Protein (Neg-Trace) mg/dL Urine Glucose (UA) (Normal) mg/dL Urine Ketones (Negative) mg/dL Urine Blood (Negative) Urine Nitrite (Negative) Urine Bilirubin (Negative) Urine Urobilinogen (Normal) mg/dL Ur Leukocyte Esterase (Negative) Urine Microscopic RBC (0-3) per hpf Urine Microscopic WBC (0-3) per hpf Ur Squamous Epith Cells (None-Few) per lpf Urine Bacteria (None-Few) per hpf Hyaline Casts (None-Few) per lpf Chlamy pneumoniae PCR (Not Detect) Adenovirus (PCR) (Not Detect) B. pertussis DNA (PCR) (Not Detect) Coronavirus OC43 (PCR) (Not Detect) Coronavirus HKU1 (PCR) (Not Detect) Coronavirus 229E (PCR) (Not Detect) Coronavirus NL63 (PCR) (Not Detect) Human Metapneumovirus (Not Detect) Influenza A (H1) PCR (Not Detect) Influ A (H1N1/09) PCR (Not Detect) Influenza A (H3) PCR (Not Detect) Influenza A Untype (PCR) (Not Detect) Influenza Type B (PCR) (Not Detect) M.pneumoniae DNA (PCR) (Not Detect) Parainfluenza 1 (PCR) (Not Detect) Parainfluenza 2 (PCR) (Not Detect) Parainfluenza 3 (PCR) (Not Detect) Parainfluenza 4 (PCR) (Not Detect) RSV (PCR) (Not Detect) Entero/Rhino (PCR) (Not Detect) 01/07/17 01/07/17 01/07/17 Range/Units 09:08 09:22 13:00 WBC (4.3-11.1) K/mcL RBC (3.82-4.97) M/mcL Hgb (11.5-15.4) g/dL Hct (35.3-44.9) % MCV (83.0-100.0) fL MCH (28.0-33.3) pg MCHC (31.6-35.5) g/dL RDW (11.5-14.5) % Plt Count (140-400) K/mcL MPV (9.4-12.4) fL Immature Gran % (0-4) % Seg Neutrophils % % Band Neutrophils % (0-4) % Lymphocytes % % Monocytes % % Eosinophils % % Basophils % % Neutrophils # (1.6-8.9) K/mcL Lymphocytes # (0.6-4.6) K/mcL Monocytes # (0.0-1.3) K/mcL Eosinophils # (0.0-0.6) K/mcL Basophils # (0.0-0.2) K/mcL Nucleated RBCs/100 WBC (0) /100 WBC Hypersegmented Neuts (Not Present) Toxic Granulation (Not Present) Platelet Estimate (Normal) Large Platelets (Not Present) APTT (26.0-36.0) Seconds ABG pH 7.45 D (7.32-7.45) pH Units ABG pCO2 44 (35-45) mmHg ABG pO2 79 L (85-104) mmHg ABG HCO3 30.6 H (21-27) mEQ/L ABG Total CO2 32.0 H (20-26) mEq/L ABG O2 Saturation 96 (95-98) % ABG Base Excess 5.6 H (-2.0 to 3.0) mEq/L Respiration Rate Blood Gas Modality VC+ Inspired O2 90 % Tidal Volume cc PEEP cm H2O Sodium (136-145) mEq/L Potassium (3.5-4.5) mEq/L Chloride (98-109) mEq/L Carbon Dioxide (19-29) mEq/L BUN (7-20) mg/dL Creatinine (0.57-1.11) mg/dL Est GFR ( Amer) (> 60) Est GFR (Non-Af Amer) (> 60) BUN/Creatinine Ratio (6-26) Glucose (70-99) mg/dL POC Glucose 135 H (58-89) Calculated Osmolality (280-300) Lactic Acid (0.5-2.2) mmol/L Calcium (8.6-10.8) mg/dL Ionized Calcium (1.15-1.35) mmol/L Phosphorus (2.3-4.7) mg/dL Magnesium (1.6-2.6) mg/dL Total Bilirubin (0.2-1.2) mg/dL Direct Bilirubin (0.0-0.5) mg/dL Indirect Bilirubin (0.0-1.2) mg/dL AST (5-34) Units/L ALT (0-55) Units/L Alkaline Phosphatase (38-126) Units/L Creatine Kinase (29-168) Units/L Troponin I (0-0.03) ng/mL Serum Total Protein (6.0-8.3) g/dL Albumin (3.5-5.0) g/dL Globulin (2.4-3.5) g/dL Albumin/Globulin Ratio (1.1-2.2) Triglycerides (< 150) mg/dL Lipase (8-78) Units/L TSH 0.583 (0.350-4.840) mcIU/mL Free T4 1.00 (0.70-1.48) ng/dl Free T3 1.73 (1.71-3.71) pg/mL Urine Color (Yellow) Urine Clarity (Clear) Urine pH (5.0-8.0) pH Units Ur Specific [place] (1.010-1.025) Urine Protein (Neg-Trace) mg/dL Urine Glucose (UA) (Normal) mg/dL Urine Ketones (Negative) mg/dL Urine Blood (Negative) Urine Nitrite (Negative) Urine Bilirubin (Negative) Urine Urobilinogen (Normal) mg/dL Ur Leukocyte Esterase (Negative) Urine Microscopic RBC (0-3) per hpf Urine Microscopic WBC (0-3) per hpf Ur Squamous Epith Cells (None-Few) per lpf Urine Bacteria (None-Few) per hpf Hyaline Casts (None-Few) per lpf Chlamy pneumoniae PCR (Not Detect) Adenovirus (PCR) (Not Detect) B. pertussis DNA (PCR) (Not Detect) Coronavirus OC43 (PCR) (Not Detect) Coronavirus HKU1 (PCR) (Not Detect) Coronavirus 229E (PCR) (Not Detect) Coronavirus NL63 (PCR) (Not Detect) Human Metapneumovirus (Not Detect) Influenza A (H1) PCR (Not Detect) Influ A (H1N1/09) PCR (Not Detect) Influenza A (H3) PCR (Not Detect) Influenza A Untype (PCR) (Not Detect) Influenza Type B (PCR) (Not Detect) M.pneumoniae DNA (PCR) (Not Detect) Parainfluenza 1 (PCR) (Not Detect) Parainfluenza 2 (PCR) (Not Detect) Parainfluenza 3 (PCR) (Not Detect) Parainfluenza 4 (PCR) (Not Detect) RSV (PCR) (Not Detect) Entero/Rhino (PCR) (Not Detect) 11/07/16 11/08/16 11/08/16 Range/Units 16:24 00:09 00:09 WBC 13.6 H (4.3-11.1) K/mcL RBC 5.00 H (3.82-4.97) M/mcL Hgb 14.3 (11.5-15.4) g/dL Hct 45.4 H (35.3-44.9) % MCV 90.8 (83.0-100.0) fL MCH 28.6 (28.0-33.3) pg MCHC 31.5 L (31.6-35.5) g/dL RDW 16.2 H (11.5-14.5) % Plt Count 198 (140-400) K/mcL MPV 11.1 (9.4-12.4) fL Immature Gran % 0.6 (0-4) % Seg Neutrophils % 93.3 % Band Neutrophils % (0-4) % Lymphocytes % 1.6 % Monocytes % 4.4 % Eosinophils % 0.0 % Basophils % 0.1 % Neutrophils # 12.7 H (1.6-8.9) K/mcL Lymphocytes # 0.2 L (0.6-4.6) K/mcL Monocytes # 0.6 (0.0-1.3) K/mcL Eosinophils # 0.0 (0.0-0.6) K/mcL Basophils # 0.0 (0.0-0.2) K/mcL Nucleated RBCs/100 WBC 0.3 H (0) /100 WBC Hypersegmented Neuts (Not Present) Toxic Granulation (Not Present) Platelet Estimate (Normal) Large Platelets (Not Present) APTT 82.8 H (26.0-36.0) Seconds ABG pH (7.32-7.45) pH Units ABG pCO2 (35-45) mmHg ABG pO2 (85-104) mmHg ABG HCO3 (21-27) mEQ/L ABG Total CO2 (20-26) mEq/L ABG O2 Saturation (95-98) % ABG Base Excess (-2.0 to 3.0) mEq/L Respiration Rate Blood Gas Modality Inspired O2 % Tidal Volume cc PEEP cm H2O Sodium 138 (136-145) mEq/L Potassium 4.2 D (3.5-4.5) mEq/L Chloride 96 L (98-109) mEq/L Carbon Dioxide 31 H (19-29) mEq/L BUN 50 H (7-20) mg/dL Creatinine 2.13 H (0.57-1.11) mg/dL Est GFR ( Amer) 29 L (> 60) Est GFR (Non-Af Amer) 24 L (> 60) BUN/Creatinine Ratio 23 (6-26) Glucose 202 H (70-99) mg/dL POC Glucose (58-89) Calculated Osmolality 305 H (280-300) Lactic Acid (0.5-2.2) mmol/L Calcium 8.6 (8.6-10.8) mg/dL Ionized Calcium 1.05 L (1.15-1.35) mmol/L Phosphorus 5.6 H (2.3-4.7) mg/dL Magnesium 2.0 (1.6-2.6) mg/dL Total Bilirubin 0.4 (0.2-1.2) mg/dL Direct Bilirubin (0.0-0.5) mg/dL Indirect Bilirubin (0.0-1.2) mg/dL AST 42 H (5-34) Units/L ALT 134 H (0-55) Units/L Alkaline Phosphatase 85 (38-126) Units/L Creatine Kinase (29-168) Units/L Troponin I (0-0.03) ng/mL Serum Total Protein 5.8 L (6.0-8.3) g/dL Albumin 2.8 L (3.5-5.0) g/dL Globulin 3.0 (2.4-3.5) g/dL Albumin/Globulin Ratio 0.9 L (1.1-2.2) Triglycerides (< 150) mg/dL Lipase (8-78) Units/L TSH (0.350-4.840) mcIU/mL Free T4 (0.70-1.48) ng/dl Free T3 (1.71-3.71) pg/mL Urine Color (Yellow) Urine Clarity (Clear) Urine pH (5.0-8.0) pH Units Ur Specific [place] (1.010-1.025) Urine Protein (Neg-Trace) mg/dL Urine Glucose (UA) (Normal) mg/dL Urine Ketones (Negative) mg/dL Urine Blood (Negative) Urine Nitrite (Negative) Urine Bilirubin (Negative) Urine Urobilinogen (Normal) mg/dL Ur Leukocyte Esterase (Negative) Urine Microscopic RBC (0-3) per hpf Urine Microscopic WBC (0-3) per hpf Ur Squamous Epith Cells (None-Few) per lpf Urine Bacteria (None-Few) per hpf Hyaline Casts (None-Few) per lpf Chlamy pneumoniae PCR (Not Detect) Adenovirus (PCR) (Not Detect) B. pertussis DNA (PCR) (Not Detect) Coronavirus OC43 (PCR) (Not Detect) Coronavirus HKU1 (PCR) (Not Detect) Coronavirus 229E (PCR) (Not Detect) Coronavirus NL63 (PCR) (Not Detect) Human Metapneumovirus (Not Detect) Influenza A (H1) PCR (Not Detect) Influ A (H1N1/09) PCR (Not Detect) Influenza A (H3) PCR (Not Detect) Influenza A Untype (PCR) (Not Detect) Influenza Type B (PCR) (Not Detect) M.pneumoniae DNA (PCR) (Not Detect) Parainfluenza 1 (PCR) (Not Detect) Parainfluenza 2 (PCR) (Not Detect) Parainfluenza 3 (PCR) (Not Detect) Parainfluenza 4 (PCR) (Not Detect) RSV (PCR) (Not Detect) Entero/Rhino (PCR) (Not Detect) 11/08/16 11/08/16 11/08/16 Range/Units 00:09 00:27 06:14 WBC (4.3-11.1) K/mcL RBC (3.82-4.97) M/mcL Hgb (11.5-15.4) g/dL Hct (35.3-44.9) % MCV (83.0-100.0) fL MCH (28.0-33.3) pg MCHC (31.6-35.5) g/dL RDW (11.5-14.5) % Plt Count (140-400) K/mcL MPV (9.4-12.4) fL Immature Gran % (0-4) % Seg Neutrophils % % Band Neutrophils % (0-4) % Lymphocytes % % Monocytes % % Eosinophils % % Basophils % % Neutrophils # (1.6-8.9) K/mcL Lymphocytes # (0.6-4.6) K/mcL Monocytes # (0.0-1.3) K/mcL Eosinophils # (0.0-0.6) K/mcL Basophils # (0.0-0.2) K/mcL Nucleated RBCs/100 WBC (0) /100 WBC Hypersegmented Neuts (Not Present) Toxic Granulation (Not Present) Platelet Estimate (Normal) Large Platelets (Not Present) APTT 105.5 H (26.0-36.0) Seconds ABG pH 7.44 (7.32-7.45) pH Units ABG pCO2 53 H (35-45) mmHg ABG pO2 56 L (85-104) mmHg ABG HCO3 36.0 H (21-27) mEQ/L ABG Total CO2 37.6 H (20-26) mEq/L ABG O2 Saturation 90 L (95-98) % ABG Base Excess 9.8 H (-2.0 to 3.0) mEq/L Respiration Rate Blood Gas Modality VC+ Inspired O2 80 % Tidal Volume cc PEEP cm H2O Sodium (136-145) mEq/L Potassium (3.5-4.5) mEq/L Chloride (98-109) mEq/L Carbon Dioxide (19-29) mEq/L BUN (7-20) mg/dL Creatinine (0.57-1.11) mg/dL Est GFR ( Amer) (> 60) Est GFR (Non-Af Amer) (> 60) BUN/Creatinine Ratio (6-26) Glucose (70-99) mg/dL POC Glucose 204 H (58-89) Calculated Osmolality (280-300) Lactic Acid (0.5-2.2) mmol/L Calcium (8.6-10.8) mg/dL Ionized Calcium (1.15-1.35) mmol/L Phosphorus (2.3-4.7) mg/dL Magnesium (1.6-2.6) mg/dL Total Bilirubin (0.2-1.2) mg/dL Direct Bilirubin (0.0-0.5) mg/dL Indirect Bilirubin (0.0-1.2) mg/dL AST (5-34) Units/L ALT (0-55) Units/L Alkaline Phosphatase (38-126) Units/L Creatine Kinase (29-168) Units/L Troponin I (0-0.03) ng/mL Serum Total Protein (6.0-8.3) g/dL Albumin (3.5-5.0) g/dL Globulin (2.4-3.5) g/dL Albumin/Globulin Ratio (1.1-2.2) Triglycerides (< 150) mg/dL Lipase (8-78) Units/L TSH (0.350-4.840) mcIU/mL Free T4 (0.70-1.48) ng/dl Free T3 (1.71-3.71) pg/mL Urine Color (Yellow) Urine Clarity (Clear) Urine pH (5.0-8.0) pH Units Ur Specific [place] (1.010-1.025) Urine Protein (Neg-Trace) mg/dL Urine Glucose (UA) (Normal) mg/dL Urine Ketones (Negative) mg/dL Urine Blood (Negative) Urine Nitrite (Negative) Urine Bilirubin (Negative) Urine Urobilinogen (Normal) mg/dL Ur Leukocyte Esterase (Negative) Urine Microscopic RBC (0-3) per hpf Urine Microscopic WBC (0-3) per hpf Ur Squamous Epith Cells (None-Few) per lpf Urine Bacteria (None-Few) per hpf Hyaline Casts (None-Few) per lpf Chlamy pneumoniae PCR (Not Detect) Adenovirus (PCR) (Not Detect) B. pertussis DNA (PCR) (Not Detect) Coronavirus OC43 (PCR) (Not Detect) Coronavirus HKU1 (PCR) (Not Detect) Coronavirus 229E (PCR) (Not Detect) Coronavirus NL63 (PCR) (Not Detect) Human Metapneumovirus (Not Detect) Influenza A (H1) PCR (Not Detect) Influ A (H1N1/09) PCR (Not Detect) Influenza A (H3) PCR (Not Detect) Influenza A Untype (PCR) (Not Detect) Influenza Type B (PCR) (Not Detect) M.pneumoniae DNA (PCR) (Not Detect) Parainfluenza 1 (PCR) (Not Detect) Parainfluenza 2 (PCR) (Not Detect) Parainfluenza 3 (PCR) (Not Detect) Parainfluenza 4 (PCR) (Not Detect) RSV (PCR) (Not Detect) Entero/Rhino (PCR) (Not Detect) 11/08/16 11/08/16 11/08/16 Range/Units 06:20 06:46 07:38 WBC (4.3-11.1) K/mcL RBC (3.82-4.97) M/mcL Hgb (11.5-15.4) g/dL Hct (35.3-44.9) % MCV (83.0-100.0) fL MCH (28.0-33.3) pg MCHC (31.6-35.5) g/dL RDW (11.5-14.5) % Plt Count (140-400) K/mcL MPV (9.4-12.4) fL Immature Gran % (0-4) % Seg Neutrophils % % Band Neutrophils % (0-4) % Lymphocytes % % Monocytes % % Eosinophils % % Basophils % % Neutrophils # (1.6-8.9) K/mcL Lymphocytes # (0.6-4.6) K/mcL Monocytes # (0.0-1.3) K/mcL Eosinophils # (0.0-0.6) K/mcL Basophils # (0.0-0.2) K/mcL Nucleated RBCs/100 WBC (0) /100 WBC Hypersegmented Neuts (Not Present) Toxic Granulation (Not Present) Platelet Estimate (Normal) Large Platelets (Not Present) APTT 77.8 H (26.0-36.0) Seconds ABG pH (7.32-7.45) pH Units ABG pCO2 (35-45) mmHg ABG pO2 (85-104) mmHg ABG HCO3 (21-27) mEQ/L ABG Total CO2 (20-26) mEq/L ABG O2 Saturation (95-98) % ABG Base Excess (-2.0 to 3.0) mEq/L Respiration Rate Blood Gas Modality Inspired O2 % Tidal Volume cc PEEP cm H2O Sodium (136-145) mEq/L Potassium (3.5-4.5) mEq/L Chloride (98-109) mEq/L Carbon Dioxide (19-29) mEq/L BUN (7-20) mg/dL Creatinine (0.57-1.11) mg/dL Est GFR ( Amer) (> 60) Est GFR (Non-Af Amer) (> 60) BUN/Creatinine Ratio (6-26) Glucose (70-99) mg/dL POC Glucose 204 H (58-89) Calculated Osmolality (280-300) Lactic Acid (0.5-2.2) mmol/L Calcium (8.6-10.8) mg/dL Ionized Calcium (1.15-1.35) mmol/L Phosphorus (2.3-4.7) mg/dL Magnesium (1.6-2.6) mg/dL Total Bilirubin 0.4 (0.2-1.2) mg/dL Direct Bilirubin 0.3 (0.0-0.5) mg/dL Indirect Bilirubin 0.1 (0.0-1.2) mg/dL AST 31 (5-34) Units/L ALT 121 H (0-55) Units/L Alkaline Phosphatase 83 (38-126) Units/L Creatine Kinase (29-168) Units/L Troponin I (0-0.03) ng/mL Serum Total Protein 5.9 L (6.0-8.3) g/dL Albumin 2.7 L (3.5-5.0) g/dL Globulin 3.2 (2.4-3.5) g/dL Albumin/Globulin Ratio 0.8 L (1.1-2.2) Triglycerides (< 150) mg/dL Lipase (8-78) Units/L TSH (0.350-4.840) mcIU/mL Free T4 (0.70-1.48) ng/dl Free T3 (1.71-3.71) pg/mL Urine Color (Yellow) Urine Clarity (Clear) Urine pH (5.0-8.0) pH Units Ur Specific [place] (1.010-1.025) Urine Protein (Neg-Trace) mg/dL Urine Glucose (UA) (Normal) mg/dL Urine Ketones (Negative) mg/dL Urine Blood (Negative) Urine Nitrite (Negative) Urine Bilirubin (Negative) Urine Urobilinogen (Normal) mg/dL Ur Leukocyte Esterase (Negative) Urine Microscopic RBC (0-3) per hpf Urine Microscopic WBC (0-3) per hpf Ur Squamous Epith Cells (None-Few) per lpf Urine Bacteria (None-Few) per hpf Hyaline Casts (None-Few) per lpf Chlamy pneumoniae PCR (Not Detect) Adenovirus (PCR) (Not Detect) B. pertussis DNA (PCR) (Not Detect) Coronavirus OC43 (PCR) (Not Detect) Coronavirus HKU1 (PCR) (Not Detect) Coronavirus 229E (PCR) (Not Detect) Coronavirus NL63 (PCR) (Not Detect) Human Metapneumovirus (Not Detect) Influenza A (H1) PCR (Not Detect) Influ A (H1N1/09) PCR (Not Detect) Influenza A (H3) PCR (Not Detect) Influenza A Untype (PCR) (Not Detect) Influenza Type B (PCR) (Not Detect) M.pneumoniae DNA (PCR) (Not Detect) Parainfluenza 1 (PCR) (Not Detect) Parainfluenza 2 (PCR) (Not Detect) Parainfluenza 3 (PCR) (Not Detect) Parainfluenza 4 (PCR) (Not Detect) RSV (PCR) (Not Detect) Entero/Rhino (PCR) (Not Detect) 11/08/16 11/08/16 11/08/16 Range/Units 11:20 13:25 15:57 WBC (4.3-11.1) K/mcL RBC (3.82-4.97) M/mcL Hgb (11.5-15.4) g/dL Hct (35.3-44.9) % MCV (83.0-100.0) fL MCH (28.0-33.3) pg MCHC (31.6-35.5) g/dL RDW (11.5-14.5) % Plt Count (140-400) K/mcL MPV (9.4-12.4) fL Immature Gran % (0-4) % Seg Neutrophils % % Band Neutrophils % (0-4) % Lymphocytes % % Monocytes % % Eosinophils % % Basophils % % Neutrophils # (1.6-8.9) K/mcL Lymphocytes # (0.6-4.6) K/mcL Monocytes # (0.0-1.3) K/mcL Eosinophils # (0.0-0.6) K/mcL Basophils # (0.0-0.2) K/mcL Nucleated RBCs/100 WBC (0) /100 WBC Hypersegmented Neuts (Not Present) Toxic Granulation (Not Present) Platelet Estimate (Normal) Large Platelets (Not Present) APTT 60.3 H (26.0-36.0) Seconds ABG pH (7.32-7.45) pH Units ABG pCO2 (35-45) mmHg ABG pO2 (85-104) mmHg ABG HCO3 (21-27) mEQ/L ABG Total CO2 (20-26) mEq/L ABG O2 Saturation (95-98) % ABG Base Excess (-2.0 to 3.0) mEq/L Respiration Rate Blood Gas Modality Inspired O2 % Tidal Volume cc PEEP cm H2O Sodium (136-145) mEq/L Potassium (3.5-4.5) mEq/L Chloride (98-109) mEq/L Carbon Dioxide (19-29) mEq/L BUN (7-20) mg/dL Creatinine (0.57-1.11) mg/dL Est GFR ( Amer) (> 60) Est GFR (Non-Af Amer) (> 60) BUN/Creatinine Ratio (6-26) Glucose (70-99) mg/dL POC Glucose 189 H 140 H (58-89) Calculated Osmolality (280-300) Lactic Acid (0.5-2.2) mmol/L Calcium (8.6-10.8) mg/dL Ionized Calcium (1.15-1.35) mmol/L Phosphorus (2.3-4.7) mg/dL Magnesium (1.6-2.6) mg/dL Total Bilirubin (0.2-1.2) mg/dL Direct Bilirubin (0.0-0.5) mg/dL Indirect Bilirubin (0.0-1.2) mg/dL AST (5-34) Units/L ALT (0-55) Units/L Alkaline Phosphatase (38-126) Units/L Creatine Kinase (29-168) Units/L Troponin I (0-0.03) ng/mL Serum Total Protein (6.0-8.3) g/dL Albumin (3.5-5.0) g/dL Globulin (2.4-3.5) g/dL Albumin/Globulin Ratio (1.1-2.2) Triglycerides (< 150) mg/dL Lipase (8-78) Units/L TSH (0.350-4.840) mcIU/mL Free T4 (0.70-1.48) ng/dl Free T3 (1.71-3.71) pg/mL Urine Color (Yellow) Urine Clarity (Clear) Urine pH (5.0-8.0) pH Units Ur Specific [place] (1.010-1.025) Urine Protein (Neg-Trace) mg/dL Urine Glucose (UA) (Normal) mg/dL Urine Ketones (Negative) mg/dL Urine Blood (Negative) Urine Nitrite (Negative) Urine Bilirubin (Negative) Urine Urobilinogen (Normal) mg/dL Ur Leukocyte Esterase (Negative) Urine Microscopic RBC (0-3) per hpf Urine Microscopic WBC (0-3) per hpf Ur Squamous Epith Cells (None-Few) per lpf Urine Bacteria (None-Few) per hpf Hyaline Casts (None-Few) per lpf Chlamy pneumoniae PCR (Not Detect) Adenovirus (PCR) (Not Detect) B. pertussis DNA (PCR) (Not Detect) Coronavirus OC43 (PCR) (Not Detect) Coronavirus HKU1 (PCR) (Not Detect) Coronavirus 229E (PCR) (Not Detect) Coronavirus NL63 (PCR) (Not Detect) Human Metapneumovirus (Not Detect) Influenza A (H1) PCR (Not Detect) Influ A (H1N1/09) PCR (Not Detect) Influenza A (H3) PCR (Not Detect) Influenza A Untype (PCR) (Not Detect) Influenza Type B (PCR) (Not Detect) M.pneumoniae DNA (PCR) (Not Detect) Parainfluenza 1 (PCR) (Not Detect) Parainfluenza 2 (PCR) (Not Detect) Parainfluenza 3 (PCR) (Not Detect) Parainfluenza 4 (PCR) (Not Detect) RSV (PCR) (Not Detect) Entero/Rhino (PCR) (Not Detect) 11/09/16 11/09/16 11/09/16 Range/Units 03:03 03:03 05:24 WBC 13.5 H (4.3-11.1) K/mcL RBC 4.83 (3.82-4.97) M/mcL Hgb 13.8 (11.5-15.4) g/dL Hct 43.9 (35.3-44.9) % MCV 90.9 (83.0-100.0) fL MCH 28.6 (28.0-33.3) pg MCHC 31.4 L (31.6-35.5) g/dL RDW 16.4 H (11.5-14.5) % Plt Count 197 (140-400) K/mcL MPV 11.0 (9.4-12.4) fL Immature Gran % 0.7 (0-4) % Seg Neutrophils % 91.2 % Band Neutrophils % (0-4) % Lymphocytes % 1.8 % Monocytes % 6.2 % Eosinophils % 0.0 % Basophils % 0.1 % Neutrophils # 12.3 H (1.6-8.9) K/mcL Lymphocytes # 0.3 L (0.6-4.6) K/mcL Monocytes # 0.8 (0.0-1.3) K/mcL Eosinophils # 0.0 (0.0-0.6) K/mcL Basophils # 0.0 (0.0-0.2) K/mcL Nucleated RBCs/100 WBC 0.2 H (0) /100 WBC Hypersegmented Neuts (Not Present) Toxic Granulation (Not Present) Platelet Estimate (Normal) Large Platelets (Not Present) APTT (26.0-36.0) Seconds ABG pH (7.32-7.45) pH Units ABG pCO2 (35-45) mmHg ABG pO2 (85-104) mmHg ABG HCO3 (21-27) mEQ/L ABG Total CO2 (20-26) mEq/L ABG O2 Saturation (95-98) % ABG Base Excess (-2.0 to 3.0) mEq/L Respiration Rate Blood Gas Modality Inspired O2 % Tidal Volume cc PEEP cm H2O Sodium 135 L (136-145) mEq/L Potassium 4.6 H (3.5-4.5) mEq/L Chloride 94 L (98-109) mEq/L Carbon Dioxide 29 (19-29) mEq/L BUN 52 H (7-20) mg/dL Creatinine 2.07 H (0.57-1.11) mg/dL Est GFR ( Amer) 30 L (> 60) Est GFR (Non-Af Amer) 24 L (> 60) BUN/Creatinine Ratio 25 (6-26) Glucose 150 H (70-99) mg/dL POC Glucose (58-89) Calculated Osmolality 297 (280-300) Lactic Acid (0.5-2.2) mmol/L Calcium 8.3 L (8.6-10.8) mg/dL Ionized Calcium 1.04 L (1.15-1.35) mmol/L Phosphorus 5.7 H (2.3-4.7) mg/dL Magnesium 2.1 (1.6-2.6) mg/dL Total Bilirubin 0.4 (0.2-1.2) mg/dL Direct Bilirubin (0.0-0.5) mg/dL Indirect Bilirubin (0.0-1.2) mg/dL AST 22 (5-34) Units/L ALT 91 H (0-55) Units/L Alkaline Phosphatase 72 (38-126) Units/L Creatine Kinase (29-168) Units/L Troponin I (0-0.03) ng/mL Serum Total Protein 5.6 L (6.0-8.3) g/dL Albumin 2.6 L (3.5-5.0) g/dL Globulin 3.0 (2.4-3.5) g/dL Albumin/Globulin Ratio 0.9 L (1.1-2.2) Triglycerides (< 150) mg/dL Lipase (8-78) Units/L TSH (0.350-4.840) mcIU/mL Free T4 (0.70-1.48) ng/dl Free T3 (1.71-3.71) pg/mL Urine Color (Yellow) Urine Clarity (Clear) Urine pH (5.0-8.0) pH Units Ur Specific [place] (1.010-1.025) Urine Protein (Neg-Trace) mg/dL Urine Glucose (UA) (Normal) mg/dL Urine Ketones (Negative) mg/dL Urine Blood (Negative) Urine Nitrite (Negative) Urine Bilirubin (Negative) Urine Urobilinogen (Normal) mg/dL Ur Leukocyte Esterase (Negative) Urine Microscopic RBC (0-3) per hpf Urine Microscopic WBC (0-3) per hpf Ur Squamous Epith Cells (None-Few) per lpf Urine Bacteria (None-Few) per hpf Hyaline Casts (None-Few) per lpf Chlamy pneumoniae PCR (Not Detect) Adenovirus (PCR) (Not Detect) B. pertussis DNA (PCR) (Not Detect) Coronavirus OC43 (PCR) (Not Detect) Coronavirus HKU1 (PCR) (Not Detect) Coronavirus 229E (PCR) (Not Detect) Coronavirus NL63 (PCR) (Not Detect) Human Metapneumovirus (Not Detect) Influenza A (H1) PCR (Not Detect) Influ A (H1N1/09) PCR (Not Detect) Influenza A (H3) PCR (Not Detect) Influenza A Untype (PCR) (Not Detect) Influenza Type B (PCR) (Not Detect) M.pneumoniae DNA (PCR) (Not Detect) Parainfluenza 1 (PCR) (Not Detect) Parainfluenza 2 (PCR) (Not Detect) Parainfluenza 3 (PCR) (Not Detect) Parainfluenza 4 (PCR) (Not Detect) RSV (PCR) (Not Detect) Entero/Rhino (PCR) (Not Detect) 11/09/16 11/09/16 11/09/16 Range/Units 06:02 06:37 11:39 WBC (4.3-11.1) K/mcL RBC (3.82-4.97) M/mcL Hgb (11.5-15.4) g/dL Hct (35.3-44.9) % MCV (83.0-100.0) fL MCH (28.0-33.3) pg MCHC (31.6-35.5) g/dL RDW (11.5-14.5) % Plt Count (140-400) K/mcL MPV (9.4-12.4) fL Immature Gran % (0-4) % Seg Neutrophils % % Band Neutrophils % (0-4) % Lymphocytes % % Monocytes % % Eosinophils % % Basophils % % Neutrophils # (1.6-8.9) K/mcL Lymphocytes # (0.6-4.6) K/mcL Monocytes # (0.0-1.3) K/mcL Eosinophils # (0.0-0.6) K/mcL Basophils # (0.0-0.2) K/mcL Nucleated RBCs/100 WBC (0) /100 WBC Hypersegmented Neuts (Not Present) Toxic Granulation (Not Present) Platelet Estimate (Normal) Large Platelets (Not Present) APTT (26.0-36.0) Seconds ABG pH 7.35 (7.32-7.45) pH Units ABG pCO2 70 H* (35-45) mmHg ABG pO2 58 L (85-104) mmHg ABG HCO3 38.6 H (21-27) mEQ/L ABG Total CO2 40.7 H (20-26) mEq/L ABG O2 Saturation 88 L (95-98) % ABG Base Excess 9.8 H (-2.0 to 3.0) mEq/L Respiration Rate Blood Gas Modality VCT Inspired O2 100 % Tidal Volume cc PEEP cm H2O Sodium (136-145) mEq/L Potassium (3.5-4.5) mEq/L Chloride (98-109) mEq/L Carbon Dioxide (19-29) mEq/L BUN (7-20) mg/dL Creatinine (0.57-1.11) mg/dL Est GFR ( Amer) (> 60) Est GFR (Non-Af Amer) (> 60) BUN/Creatinine Ratio (6-26) Glucose (70-99) mg/dL POC Glucose 169 H 193 H (58-89) Calculated Osmolality (280-300) Lactic Acid (0.5-2.2) mmol/L Calcium (8.6-10.8) mg/dL Ionized Calcium (1.15-1.35) mmol/L Phosphorus (2.3-4.7) mg/dL Magnesium (1.6-2.6) mg/dL Total Bilirubin (0.2-1.2) mg/dL Direct Bilirubin (0.0-0.5) mg/dL Indirect Bilirubin (0.0-1.2) mg/dL AST (5-34) Units/L ALT (0-55) Units/L Alkaline Phosphatase (38-126) Units/L Creatine Kinase (29-168) Units/L Troponin I (0-0.03) ng/mL Serum Total Protein (6.0-8.3) g/dL Albumin (3.5-5.0) g/dL Globulin (2.4-3.5) g/dL Albumin/Globulin Ratio (1.1-2.2) Triglycerides (< 150) mg/dL Lipase (8-78) Units/L TSH (0.350-4.840) mcIU/mL Free T4 (0.70-1.48) ng/dl Free T3 (1.71-3.71) pg/mL Urine Color (Yellow) Urine Clarity (Clear) Urine pH (5.0-8.0) pH Units Ur Specific [place] (1.010-1.025) Urine Protein (Neg-Trace) mg/dL Urine Glucose (UA) (Normal) mg/dL Urine Ketones (Negative) mg/dL Urine Blood (Negative) Urine Nitrite (Negative) Urine Bilirubin (Negative) Urine Urobilinogen (Normal) mg/dL Ur Leukocyte Esterase (Negative) Urine Microscopic RBC (0-3) per hpf Urine Microscopic WBC (0-3) per hpf Ur Squamous Epith Cells (None-Few) per lpf Urine Bacteria (None-Few) per hpf Hyaline Casts (None-Few) per lpf Chlamy pneumoniae PCR (Not Detect) Adenovirus (PCR) (Not Detect) B. pertussis DNA (PCR) (Not Detect) Coronavirus OC43 (PCR) (Not Detect) Coronavirus HKU1 (PCR) (Not Detect) Coronavirus 229E (PCR) (Not Detect) Coronavirus NL63 (PCR) (Not Detect) Human Metapneumovirus (Not Detect) Influenza A (H1) PCR (Not Detect) Influ A (H1N1/09) PCR (Not Detect) Influenza A (H3) PCR (Not Detect) Influenza A Untype (PCR) (Not Detect) Influenza Type B (PCR) (Not Detect) M.pneumoniae DNA (PCR) (Not Detect) Parainfluenza 1 (PCR) (Not Detect) Parainfluenza 2 (PCR) (Not Detect) Parainfluenza 3 (PCR) (Not Detect) Parainfluenza 4 (PCR) (Not Detect) RSV (PCR) (Not Detect) Entero/Rhino (PCR) (Not Detect) 11/09/16 11/09/16 11/09/16 Range/Units 11:40 13:17 13:20 WBC (4.3-11.1) K/mcL RBC (3.82-4.97) M/mcL Hgb (11.5-15.4) g/dL Hct (35.3-44.9) % MCV (83.0-100.0) fL MCH (28.0-33.3) pg MCHC (31.6-35.5) g/dL RDW (11.5-14.5) % Plt Count (140-400) K/mcL MPV (9.4-12.4) fL Immature Gran % (0-4) % Seg Neutrophils % % Band Neutrophils % (0-4) % Lymphocytes % % Monocytes % % Eosinophils % % Basophils % % Neutrophils # (1.6-8.9) K/mcL Lymphocytes # (0.6-4.6) K/mcL Monocytes # (0.0-1.3) K/mcL Eosinophils # (0.0-0.6) K/mcL Basophils # (0.0-0.2) K/mcL Nucleated RBCs/100 WBC (0) /100 WBC Hypersegmented Neuts (Not Present) Toxic Granulation (Not Present) Platelet Estimate (Normal) Large Platelets (Not Present) APTT 39.9 H (26.0-36.0) Seconds ABG pH 7.38 7.35 (7.32-7.45) pH Units ABG pCO2 61 H 66 H (35-45) mmHg ABG pO2 53 L 56 L (85-104) mmHg ABG HCO3 36.1 H 36.4 H (21-27) mEQ/L ABG Total CO2 38.0 H 38.4 H (20-26) mEq/L ABG O2 Saturation 86 L 87 L (95-98) % ABG Base Excess 8.2 H 7.8 H (-2.0 to 3.0) mEq/L Respiration Rate Blood Gas Modality VCT VC+ Inspired O2 100 100 % Tidal Volume cc PEEP cm H2O Sodium (136-145) mEq/L Potassium (3.5-4.5) mEq/L Chloride (98-109) mEq/L Carbon Dioxide (19-29) mEq/L BUN (7-20) mg/dL Creatinine (0.57-1.11) mg/dL Est GFR ( Amer) (> 60) Est GFR (Non-Af Amer) (> 60) BUN/Creatinine Ratio (6-26) Glucose (70-99) mg/dL POC Glucose (58-89) Calculated Osmolality (280-300) Lactic Acid (0.5-2.2) mmol/L Calcium (8.6-10.8) mg/dL Ionized Calcium (1.15-1.35) mmol/L Phosphorus (2.3-4.7) mg/dL Magnesium (1.6-2.6) mg/dL Total Bilirubin (0.2-1.2) mg/dL Direct Bilirubin (0.0-0.5) mg/dL Indirect Bilirubin (0.0-1.2) mg/dL AST (5-34) Units/L ALT (0-55) Units/L Alkaline Phosphatase (38-126) Units/L Creatine Kinase (29-168) Units/L Troponin I (0-0.03) ng/mL Serum Total Protein (6.0-8.3) g/dL Albumin (3.5-5.0) g/dL Globulin (2.4-3.5) g/dL Albumin/Globulin Ratio (1.1-2.2) Triglycerides (< 150) mg/dL Lipase (8-78) Units/L TSH (0.350-4.840) mcIU/mL Free T4 (0.70-1.48) ng/dl Free T3 (1.71-3.71) pg/mL Urine Color (Yellow) Urine Clarity (Clear) Urine pH (5.0-8.0) pH Units Ur Specific [place] (1.010-1.025) Urine Protein (Neg-Trace) mg/dL Urine Glucose (UA) (Normal) mg/dL Urine Ketones (Negative) mg/dL Urine Blood (Negative) Urine Nitrite (Negative) Urine Bilirubin (Negative) Urine Urobilinogen (Normal) mg/dL Ur Leukocyte Esterase (Negative) Urine Microscopic RBC (0-3) per hpf Urine Microscopic WBC (0-3) per hpf Ur Squamous Epith Cells (None-Few) per lpf Urine Bacteria (None-Few) per hpf Hyaline Casts (None-Few) per lpf Chlamy pneumoniae PCR (Not Detect) Adenovirus (PCR) (Not Detect) B. pertussis DNA (PCR) (Not Detect) Coronavirus OC43 (PCR) (Not Detect) Coronavirus HKU1 (PCR) (Not Detect) Coronavirus 229E (PCR) (Not Detect) Coronavirus NL63 (PCR) (Not Detect) Human Metapneumovirus (Not Detect) Influenza A (H1) PCR (Not Detect) Influ A (H1N1/09) PCR (Not Detect) Influenza A (H3) PCR (Not Detect) Influenza A Untype (PCR) (Not Detect) Influenza Type B (PCR) (Not Detect) M.pneumoniae DNA (PCR) (Not Detect) Parainfluenza 1 (PCR) (Not Detect) Parainfluenza 2 (PCR) (Not Detect) Parainfluenza 3 (PCR) (Not Detect) Parainfluenza 4 (PCR) (Not Detect) RSV (PCR) (Not Detect) Entero/Rhino (PCR) (Not Detect) 11/09/16 11/09/16 11/09/16 Range/Units 16:14 17:02 18:15 WBC (4.3-11.1) K/mcL RBC (3.82-4.97) M/mcL Hgb (11.5-15.4) g/dL Hct (35.3-44.9) % MCV (83.0-100.0) fL MCH (28.0-33.3) pg MCHC (31.6-35.5) g/dL RDW (11.5-14.5) % Plt Count (140-400) K/mcL MPV (9.4-12.4) fL Immature Gran % (0-4) % Seg Neutrophils % % Band Neutrophils % (0-4) % Lymphocytes % % Monocytes % % Eosinophils % % Basophils % % Neutrophils # (1.6-8.9) K/mcL Lymphocytes # (0.6-4.6) K/mcL Monocytes # (0.0-1.3) K/mcL Eosinophils # (0.0-0.6) K/mcL Basophils # (0.0-0.2) K/mcL Nucleated RBCs/100 WBC (0) /100 WBC Hypersegmented Neuts (Not Present) Toxic Granulation (Not Present) Platelet Estimate (Normal) Large Platelets (Not Present) APTT (26.0-36.0) Seconds ABG pH 7.43 7.40 (7.32-7.45) pH Units ABG pCO2 56 H 61 H (35-45) mmHg ABG pO2 54 L 55 L (85-104) mmHg ABG HCO3 37.2 H 37.8 H (21-27) mEQ/L ABG Total CO2 38.9 H 39.7 H (20-26) mEq/L ABG O2 Saturation 89 L 88 L (95-98) % ABG Base Excess 10.5 H 10.3 H (-2.0 to 3.0) mEq/L Respiration Rate Blood Gas Modality ASSIST CONTROL VC Inspired O2 100 100 % Tidal Volume cc PEEP 16 cm H2O Sodium (136-145) mEq/L Potassium (3.5-4.5) mEq/L Chloride (98-109) mEq/L Carbon Dioxide (19-29) mEq/L BUN (7-20) mg/dL Creatinine (0.57-1.11) mg/dL Est GFR ( Amer) (> 60) Est GFR (Non-Af Amer) (> 60) BUN/Creatinine Ratio (6-26) Glucose (70-99) mg/dL POC Glucose 171 H (58-89) Calculated Osmolality (280-300) Lactic Acid (0.5-2.2) mmol/L Calcium (8.6-10.8) mg/dL Ionized Calcium (1.15-1.35) mmol/L Phosphorus (2.3-4.7) mg/dL Magnesium (1.6-2.6) mg/dL Total Bilirubin (0.2-1.2) mg/dL Direct Bilirubin (0.0-0.5) mg/dL Indirect Bilirubin (0.0-1.2) mg/dL AST (5-34) Units/L ALT (0-55) Units/L Alkaline Phosphatase (38-126) Units/L Creatine Kinase (29-168) Units/L Troponin I (0-0.03) ng/mL Serum Total Protein (6.0-8.3) g/dL Albumin (3.5-5.0) g/dL Globulin (2.4-3.5) g/dL Albumin/Globulin Ratio (1.1-2.2) Triglycerides (< 150) mg/dL Lipase (8-78) Units/L TSH (0.350-4.840) mcIU/mL Free T4 (0.70-1.48) ng/dl Free T3 (1.71-3.71) pg/mL Urine Color (Yellow) Urine Clarity (Clear) Urine pH (5.0-8.0) pH Units Ur Specific [place] (1.010-1.025) Urine Protein (Neg-Trace) mg/dL Urine Glucose (UA) (Normal) mg/dL Urine Ketones (Negative) mg/dL Urine Blood (Negative) Urine Nitrite (Negative) Urine Bilirubin (Negative) Urine Urobilinogen (Normal) mg/dL Ur Leukocyte Esterase (Negative) Urine Microscopic RBC (0-3) per hpf Urine Microscopic WBC (0-3) per hpf Ur Squamous Epith Cells (None-Few) per lpf Urine Bacteria (None-Few) per hpf Hyaline Casts (None-Few) per lpf Chlamy pneumoniae PCR (Not Detect) Adenovirus (PCR) (Not Detect) B. pertussis DNA (PCR) (Not Detect) Coronavirus OC43 (PCR) (Not Detect) Coronavirus HKU1 (PCR) (Not Detect) Coronavirus 229E (PCR) (Not Detect) Coronavirus NL63 (PCR) (Not Detect) Human Metapneumovirus (Not Detect) Influenza A (H1) PCR (Not Detect) Influ A (H1N1/09) PCR (Not Detect) Influenza A (H3) PCR (Not Detect) Influenza A Untype (PCR) (Not Detect) Influenza Type B (PCR) (Not Detect) M.pneumoniae DNA (PCR) (Not Detect) Parainfluenza 1 (PCR) (Not Detect) Parainfluenza 2 (PCR) (Not Detect) Parainfluenza 3 (PCR) (Not Detect) Parainfluenza 4 (PCR) (Not Detect) RSV (PCR) (Not Detect) Entero/Rhino (PCR) (Not Detect) 11/09/16 11/09/16 11/10/16 Range/Units 20:00 23:50 02:00 WBC 13.8 H (4.3-11.1) K/mcL RBC 4.71 (3.82-4.97) M/mcL Hgb 13.3 (11.5-15.4) g/dL Hct 42.7 (35.3-44.9) % MCV 90.7 (83.0-100.0) fL MCH 28.2 (28.0-33.3) pg MCHC 31.1 L (31.6-35.5) g/dL RDW 16.3 H (11.5-14.5) % Plt Count 183 (140-400) K/mcL MPV 10.8 (9.4-12.4) fL Immature Gran % 0.5 (0-4) % Seg Neutrophils % 89.1 % Band Neutrophils % (0-4) % Lymphocytes % 1.6 % Monocytes % 8.7 % Eosinophils % 0.0 % Basophils % 0.1 % Neutrophils # 12.3 H (1.6-8.9) K/mcL Lymphocytes # 0.2 L (0.6-4.6) K/mcL Monocytes # 1.2 (0.0-1.3) K/mcL Eosinophils # 0.0 (0.0-0.6) K/mcL Basophils # 0.0 (0.0-0.2) K/mcL Nucleated RBCs/100 WBC 0.3 H (0) /100 WBC Hypersegmented Neuts (Not Present) Toxic Granulation (Not Present) Platelet Estimate (Normal) Large Platelets (Not Present) APTT 62.4 H D (26.0-36.0) Seconds ABG pH (7.32-7.45) pH Units ABG pCO2 (35-45) mmHg ABG pO2 (85-104) mmHg ABG HCO3 (21-27) mEQ/L ABG Total CO2 (20-26) mEq/L ABG O2 Saturation (95-98) % ABG Base Excess (-2.0 to 3.0) mEq/L Respiration Rate Blood Gas Modality Inspired O2 % Tidal Volume cc PEEP cm H2O Sodium (136-145) mEq/L Potassium (3.5-4.5) mEq/L Chloride (98-109) mEq/L Carbon Dioxide (19-29) mEq/L BUN (7-20) mg/dL Creatinine (0.57-1.11) mg/dL Est GFR ( Amer) (> 60) Est GFR (Non-Af Amer) (> 60) BUN/Creatinine Ratio (6-26) Glucose (70-99) mg/dL POC Glucose 195 H (58-89) Calculated Osmolality (280-300) Lactic Acid (0.5-2.2) mmol/L Calcium (8.6-10.8) mg/dL Ionized Calcium (1.15-1.35) mmol/L Phosphorus (2.3-4.7) mg/dL Magnesium (1.6-2.6) mg/dL Total Bilirubin (0.2-1.2) mg/dL Direct Bilirubin (0.0-0.5) mg/dL Indirect Bilirubin (0.0-1.2) mg/dL AST (5-34) Units/L ALT (0-55) Units/L Alkaline Phosphatase (38-126) Units/L Creatine Kinase (29-168) Units/L Troponin I (0-0.03) ng/mL Serum Total Protein (6.0-8.3) g/dL Albumin (3.5-5.0) g/dL Globulin (2.4-3.5) g/dL Albumin/Globulin Ratio (1.1-2.2) Triglycerides (< 150) mg/dL Lipase (8-78) Units/L TSH (0.350-4.840) mcIU/mL Free T4 (0.70-1.48) ng/dl Free T3 (1.71-3.71) pg/mL Urine Color (Yellow) Urine Clarity (Clear) Urine pH (5.0-8.0) pH Units Ur Specific [place] (1.010-1.025) Urine Protein (Neg-Trace) mg/dL Urine Glucose (UA) (Normal) mg/dL Urine Ketones (Negative) mg/dL Urine Blood (Negative) Urine Nitrite (Negative) Urine Bilirubin (Negative) Urine Urobilinogen (Normal) mg/dL Ur Leukocyte Esterase (Negative) Urine Microscopic RBC (0-3) per hpf Urine Microscopic WBC (0-3) per hpf Ur Squamous Epith Cells (None-Few) per lpf Urine Bacteria (None-Few) per hpf Hyaline Casts (None-Few) per lpf Chlamy pneumoniae PCR (Not Detect) Adenovirus (PCR) (Not Detect) B. pertussis DNA (PCR) (Not Detect) Coronavirus OC43 (PCR) (Not Detect) Coronavirus HKU1 (PCR) (Not Detect) Coronavirus 229E (PCR) (Not Detect) Coronavirus NL63 (PCR) (Not Detect) Human Metapneumovirus (Not Detect) Influenza A (H1) PCR (Not Detect) Influ A (H1N1/09) PCR (Not Detect) Influenza A (H3) PCR (Not Detect) Influenza A Untype (PCR) (Not Detect) Influenza Type B (PCR) (Not Detect) M.pneumoniae DNA (PCR) (Not Detect) Parainfluenza 1 (PCR) (Not Detect) Parainfluenza 2 (PCR) (Not Detect) Parainfluenza 3 (PCR) (Not Detect) Parainfluenza 4 (PCR) (Not Detect) RSV (PCR) (Not Detect) Entero/Rhino (PCR) (Not Detect) 11/10/16 11/10/16 11/10/16 Range/Units 02:00 02:00 02:00 WBC (4.3-11.1) K/mcL RBC (3.82-4.97) M/mcL Hgb (11.5-15.4) g/dL Hct (35.3-44.9) % MCV (83.0-100.0) fL MCH (28.0-33.3) pg MCHC (31.6-35.5) g/dL RDW (11.5-14.5) % Plt Count (140-400) K/mcL MPV (9.4-12.4) fL Immature Gran % (0-4) % Seg Neutrophils % % Band Neutrophils % (0-4) % Lymphocytes % % Monocytes % % Eosinophils % % Basophils % % Neutrophils # (1.6-8.9) K/mcL Lymphocytes # (0.6-4.6) K/mcL Monocytes # (0.0-1.3) K/mcL Eosinophils # (0.0-0.6) K/mcL Basophils # (0.0-0.2) K/mcL Nucleated RBCs/100 WBC (0) /100 WBC Hypersegmented Neuts (Not Present) Toxic Granulation (Not Present) Platelet Estimate (Normal) Large Platelets (Not Present) APTT 72.0 H (26.0-36.0) Seconds ABG pH (7.32-7.45) pH Units ABG pCO2 (35-45) mmHg ABG pO2 (85-104) mmHg ABG HCO3 (21-27) mEQ/L ABG Total CO2 (20-26) mEq/L ABG O2 Saturation (95-98) % ABG Base Excess (-2.0 to 3.0) mEq/L Respiration Rate Blood Gas Modality Inspired O2 % Tidal Volume cc PEEP cm H2O Sodium 135 L (136-145) mEq/L Potassium 4.5 (3.5-4.5) mEq/L Chloride 94 L (98-109) mEq/L Carbon Dioxide 29 (19-29) mEq/L BUN 65 H (7-20) mg/dL Creatinine 2.31 H (0.57-1.11) mg/dL Est GFR ( Amer) 26 L (> 60) Est GFR (Non-Af Amer) 22 L (> 60) BUN/Creatinine Ratio 28 H (6-26) Glucose 174 H (70-99) mg/dL POC Glucose (58-89) Calculated Osmolality 303 H (280-300) Lactic Acid (0.5-2.2) mmol/L Calcium 8.1 L (8.6-10.8) mg/dL Ionized Calcium 1.02 L (1.15-1.35) mmol/L Phosphorus 7.8 H (2.3-4.7) mg/dL Magnesium 2.0 (1.6-2.6) mg/dL Total Bilirubin 0.3 (0.2-1.2) mg/dL Direct Bilirubin (0.0-0.5) mg/dL Indirect Bilirubin (0.0-1.2) mg/dL AST 17 (5-34) Units/L ALT 67 H (0-55) Units/L Alkaline Phosphatase 69 (38-126) Units/L Creatine Kinase (29-168) Units/L Troponin I (0-0.03) ng/mL Serum Total Protein 5.5 L (6.0-8.3) g/dL Albumin 2.4 L (3.5-5.0) g/dL Globulin 3.1 (2.4-3.5) g/dL Albumin/Globulin Ratio 0.8 L (1.1-2.2) Triglycerides (< 150) mg/dL Lipase (8-78) Units/L TSH (0.350-4.840) mcIU/mL Free T4 (0.70-1.48) ng/dl Free T3 (1.71-3.71) pg/mL Urine Color (Yellow) Urine Clarity (Clear) Urine pH (5.0-8.0) pH Units Ur Specific [place] (1.010-1.025) Urine Protein (Neg-Trace) mg/dL Urine Glucose (UA) (Normal) mg/dL Urine Ketones (Negative) mg/dL Urine Blood (Negative) Urine Nitrite (Negative) Urine Bilirubin (Negative) Urine Urobilinogen (Normal) mg/dL Ur Leukocyte Esterase (Negative) Urine Microscopic RBC (0-3) per hpf Urine Microscopic WBC (0-3) per hpf Ur Squamous Epith Cells (None-Few) per lpf Urine Bacteria (None-Few) per hpf Hyaline Casts (None-Few) per lpf Chlamy pneumoniae PCR (Not Detect) Adenovirus (PCR) (Not Detect) B. pertussis DNA (PCR) (Not Detect) Coronavirus OC43 (PCR) (Not Detect) Coronavirus HKU1 (PCR) (Not Detect) Coronavirus 229E (PCR) (Not Detect) Coronavirus NL63 (PCR) (Not Detect) Human Metapneumovirus (Not Detect) Influenza A (H1) PCR (Not Detect) Influ A (H1N1/09) PCR (Not Detect) Influenza A (H3) PCR (Not Detect) Influenza A Untype (PCR) (Not Detect) Influenza Type B (PCR) (Not Detect) M.pneumoniae DNA (PCR) (Not Detect) Parainfluenza 1 (PCR) (Not Detect) Parainfluenza 2 (PCR) (Not Detect) Parainfluenza 3 (PCR) (Not Detect) Parainfluenza 4 (PCR) (Not Detect) RSV (PCR) (Not Detect) Entero/Rhino (PCR) (Not Detect) 11/10/16 11/10/16 11/10/16 Range/Units 05:14 07:25 07:25 WBC (4.3-11.1) K/mcL RBC (3.82-4.97) M/mcL Hgb (11.5-15.4) g/dL Hct (35.3-44.9) % MCV (83.0-100.0) fL MCH (28.0-33.3) pg MCHC (31.6-35.5) g/dL RDW (11.5-14.5) % Plt Count (140-400) K/mcL MPV (9.4-12.4) fL Immature Gran % (0-4) % Seg Neutrophils % % Band Neutrophils % (0-4) % Lymphocytes % % Monocytes % % Eosinophils % % Basophils % % Neutrophils # (1.6-8.9) K/mcL Lymphocytes # (0.6-4.6) K/mcL Monocytes # (0.0-1.3) K/mcL Eosinophils # (0.0-0.6) K/mcL Basophils # (0.0-0.2) K/mcL Nucleated RBCs/100 WBC (0) /100 WBC Hypersegmented Neuts (Not Present) Toxic Granulation (Not Present) Platelet Estimate (Normal) Large Platelets (Not Present) APTT (26.0-36.0) Seconds ABG pH (7.32-7.45) pH Units ABG pCO2 (35-45) mmHg ABG pO2 (85-104) mmHg ABG HCO3 (21-27) mEQ/L ABG Total CO2 (20-26) mEq/L ABG O2 Saturation (95-98) % ABG Base Excess (-2.0 to 3.0) mEq/L Respiration Rate Blood Gas Modality Inspired O2 % Tidal Volume cc PEEP cm H2O Sodium (136-145) mEq/L Potassium (3.5-4.5) mEq/L Chloride (98-109) mEq/L Carbon Dioxide (19-29) mEq/L BUN (7-20) mg/dL Creatinine (0.57-1.11) mg/dL Est GFR ( Amer) (> 60) Est GFR (Non-Af Amer) (> 60) BUN/Creatinine Ratio (6-26) Glucose (70-99) mg/dL POC Glucose 161 H (58-89) Calculated Osmolality (280-300) Lactic Acid 1.1 (0.5-2.2) mmol/L Calcium (8.6-10.8) mg/dL Ionized Calcium (1.15-1.35) mmol/L Phosphorus (2.3-4.7) mg/dL Magnesium (1.6-2.6) mg/dL Total Bilirubin (0.2-1.2) mg/dL Direct Bilirubin (0.0-0.5) mg/dL Indirect Bilirubin (0.0-1.2) mg/dL AST (5-34) Units/L ALT (0-55) Units/L Alkaline Phosphatase (38-126) Units/L Creatine Kinase 253 H (29-168) Units/L Troponin I (0-0.03) ng/mL Serum Total Protein (6.0-8.3) g/dL Albumin (3.5-5.0) g/dL Globulin (2.4-3.5) g/dL Albumin/Globulin Ratio (1.1-2.2) Triglycerides 153 H (< 150) mg/dL Lipase 132 H (8-78) Units/L TSH (0.350-4.840) mcIU/mL Free T4 (0.70-1.48) ng/dl Free T3 (1.71-3.71) pg/mL Urine Color (Yellow) Urine Clarity (Clear) Urine pH (5.0-8.0) pH Units Ur Specific [place] (1.010-1.025) Urine Protein (Neg-Trace) mg/dL Urine Glucose (UA) (Normal) mg/dL Urine Ketones (Negative) mg/dL Urine Blood (Negative) Urine Nitrite (Negative) Urine Bilirubin (Negative) Urine Urobilinogen (Normal) mg/dL Ur Leukocyte Esterase (Negative) Urine Microscopic RBC (0-3) per hpf Urine Microscopic WBC (0-3) per hpf Ur Squamous Epith Cells (None-Few) per lpf Urine Bacteria (None-Few) per hpf Hyaline Casts (None-Few) per lpf Chlamy pneumoniae PCR (Not Detect) Adenovirus (PCR) (Not Detect) B. pertussis DNA (PCR) (Not Detect) Coronavirus OC43 (PCR) (Not Detect) Coronavirus HKU1 (PCR) (Not Detect) Coronavirus 229E (PCR) (Not Detect) Coronavirus NL63 (PCR) (Not Detect) Human Metapneumovirus (Not Detect) Influenza A (H1) PCR (Not Detect) Influ A (H1N1/09) PCR (Not Detect) Influenza A (H3) PCR (Not Detect) Influenza A Untype (PCR) (Not Detect) Influenza Type B (PCR) (Not Detect) M.pneumoniae DNA (PCR) (Not Detect) Parainfluenza 1 (PCR) (Not Detect) Parainfluenza 2 (PCR) (Not Detect) Parainfluenza 3 (PCR) (Not Detect) Parainfluenza 4 (PCR) (Not Detect) RSV (PCR) (Not Detect) Entero/Rhino (PCR) (Not Detect) 11/10/16 11/10/16 11/10/16 Range/Units 09:03 11:01 11:45 WBC (4.3-11.1) K/mcL RBC (3.82-4.97) M/mcL Hgb (11.5-15.4) g/dL Hct (35.3-44.9) % MCV (83.0-100.0) fL MCH (28.0-33.3) pg MCHC (31.6-35.5) g/dL RDW (11.5-14.5) % Plt Count (140-400) K/mcL MPV (9.4-12.4) fL Immature Gran % (0-4) % Seg Neutrophils % % Band Neutrophils % (0-4) % Lymphocytes % % Monocytes % % Eosinophils % % Basophils % % Neutrophils # (1.6-8.9) K/mcL Lymphocytes # (0.6-4.6) K/mcL Monocytes # (0.0-1.3) K/mcL Eosinophils # (0.0-0.6) K/mcL Basophils # (0.0-0.2) K/mcL Nucleated RBCs/100 WBC (0) /100 WBC Hypersegmented Neuts (Not Present) Toxic Granulation (Not Present) Platelet Estimate (Normal) Large Platelets (Not Present) APTT (26.0-36.0) Seconds ABG pH 7.31 L (7.32-7.45) pH Units ABG pCO2 68 H (35-45) mmHg ABG pO2 65 L (85-104) mmHg ABG HCO3 28.8 H (21-27) mEQ/L ABG Total CO2 36.3 H (20-26) mEq/L ABG O2 Saturation 90 L (95-98) % ABG Base Excess 5.2 H (-2.0 to 3.0) mEq/L Respiration Rate Blood Gas Modality VENT Inspired O2 70 % Tidal Volume cc PEEP cm H2O Sodium (136-145) mEq/L Potassium (3.5-4.5) mEq/L Chloride (98-109) mEq/L Carbon Dioxide (19-29) mEq/L BUN (7-20) mg/dL Creatinine (0.57-1.11) mg/dL Est GFR ( Amer) (> 60) Est GFR (Non-Af Amer) (> 60) BUN/Creatinine Ratio (6-26) Glucose (70-99) mg/dL POC Glucose 138 H (58-89) Calculated Osmolality (280-300) Lactic Acid (0.5-2.2) mmol/L Calcium (8.6-10.8) mg/dL Ionized Calcium (1.15-1.35) mmol/L Phosphorus (2.3-4.7) mg/dL Magnesium (1.6-2.6) mg/dL Total Bilirubin (0.2-1.2) mg/dL Direct Bilirubin (0.0-0.5) mg/dL Indirect Bilirubin (0.0-1.2) mg/dL AST (5-34) Units/L ALT (0-55) Units/L Alkaline Phosphatase (38-126) Units/L Creatine Kinase (29-168) Units/L Troponin I (0-0.03) ng/mL Serum Total Protein (6.0-8.3) g/dL Albumin (3.5-5.0) g/dL Globulin (2.4-3.5) g/dL Albumin/Globulin Ratio (1.1-2.2) Triglycerides (< 150) mg/dL Lipase (8-78) Units/L TSH (0.350-4.840) mcIU/mL Free T4 (0.70-1.48) ng/dl Free T3 (1.71-3.71) pg/mL Urine Color (Yellow) Urine Clarity (Clear) Urine pH (5.0-8.0) pH Units Ur Specific [place] (1.010-1.025) Urine Protein (Neg-Trace) mg/dL Urine Glucose (UA) (Normal) mg/dL Urine Ketones (Negative) mg/dL Urine Blood (Negative) Urine Nitrite (Negative) Urine Bilirubin (Negative) Urine Urobilinogen (Normal) mg/dL Ur Leukocyte Esterase (Negative) Urine Microscopic RBC (0-3) per hpf Urine Microscopic WBC (0-3) per hpf Ur Squamous Epith Cells (None-Few) per lpf Urine Bacteria (None-Few) per hpf Hyaline Casts (None-Few) per lpf Chlamy pneumoniae PCR Not Detected (Not Detect) Adenovirus (PCR) Not Detected (Not Detect) B. pertussis DNA (PCR) Not Detected (Not Detect) Coronavirus OC43 (PCR) Not Detected (Not Detect) Coronavirus HKU1 (PCR) Not Detected (Not Detect) Coronavirus 229E (PCR) Not Detected (Not Detect) Coronavirus NL63 (PCR) Not Detected (Not Detect) Human Metapneumovirus Not Detected (Not Detect) Influenza A (H1) PCR Not Detected (Not Detect) Influ A (H1N1/09) PCR Not Detected (Not Detect) Influenza A (H3) PCR Not Detected (Not Detect) Influenza A Untype (PCR) Not Detected (Not Detect) Influenza Type B (PCR) Not Detected (Not Detect) M.pneumoniae DNA (PCR) Not Detected (Not Detect) Parainfluenza 1 (PCR) Not Detected (Not Detect) Parainfluenza 2 (PCR) Not Detected (Not Detect) Parainfluenza 3 (PCR) Not Detected (Not Detect) Parainfluenza 4 (PCR) Not Detected (Not Detect) RSV (PCR) Not Detected (Not Detect) Entero/Rhino (PCR) Not Detected (Not Detect) 11/10/16 11/10/16 11/10/16 Range/Units 14:45 14:45 14:45 WBC 14.4 H (4.3-11.1) K/mcL RBC 4.85 (3.82-4.97) M/mcL Hgb 13.6 (11.5-15.4) g/dL Hct 42.6 (35.3-44.9) % MCV 87.8 (83.0-100.0) fL MCH 28.0 (28.0-33.3) pg MCHC 31.9 (31.6-35.5) g/dL RDW 16.1 H (11.5-14.5) % Plt Count 163 (140-400) K/mcL MPV 10.8 (9.4-12.4) fL Immature Gran % 0.6 (0-4) % Seg Neutrophils % 86.1 % Band Neutrophils % (0-4) % Lymphocytes % 4.5 % Monocytes % 8.6 % Eosinophils % 0.1 % Basophils % 0.1 % Neutrophils # 12.4 H (1.6-8.9) K/mcL Lymphocytes # 0.7 (0.6-4.6) K/mcL Monocytes # 1.2 (0.0-1.3) K/mcL Eosinophils # 0.0 (0.0-0.6) K/mcL Basophils # 0.0 (0.0-0.2) K/mcL Nucleated RBCs/100 WBC 0.3 H (0) /100 WBC Hypersegmented Neuts (Not Present) Toxic Granulation (Not Present) Platelet Estimate (Normal) Large Platelets (Not Present) APTT (26.0-36.0) Seconds ABG pH (7.32-7.45) pH Units ABG pCO2 (35-45) mmHg ABG pO2 (85-104) mmHg ABG HCO3 (21-27) mEQ/L ABG Total CO2 (20-26) mEq/L ABG O2 Saturation (95-98) % ABG Base Excess (-2.0 to 3.0) mEq/L Respiration Rate Blood Gas Modality Inspired O2 % Tidal Volume cc PEEP cm H2O Sodium 135 L (136-145) mEq/L Potassium 4.5 (3.5-4.5) mEq/L Chloride 94 L (98-109) mEq/L Carbon Dioxide 28 (19-29) mEq/L BUN 69 H (7-20) mg/dL Creatinine 2.21 H (0.57-1.11) mg/dL Est GFR ( Amer) 27 L (> 60) Est GFR (Non-Af Amer) 23 L (> 60) BUN/Creatinine Ratio 31 H (6-26) Glucose 114 H (70-99) mg/dL POC Glucose (58-89) Calculated Osmolality 301 H (280-300) Lactic Acid 0.9 (0.5-2.2) mmol/L Calcium 8.5 L (8.6-10.8) mg/dL Ionized Calcium (1.15-1.35) mmol/L Phosphorus (2.3-4.7) mg/dL Magnesium 2.0 (1.6-2.6) mg/dL Total Bilirubin 0.4 (0.2-1.2) mg/dL Direct Bilirubin (0.0-0.5) mg/dL Indirect Bilirubin (0.0-1.2) mg/dL AST 27 (5-34) Units/L ALT 62 H (0-55) Units/L Alkaline Phosphatase 66 (38-126) Units/L Creatine Kinase (29-168) Units/L Troponin I (0-0.03) ng/mL Serum Total Protein 5.6 L (6.0-8.3) g/dL Albumin 2.5 L (3.5-5.0) g/dL Globulin 3.1 (2.4-3.5) g/dL Albumin/Globulin Ratio 0.8 L (1.1-2.2) Triglycerides (< 150) mg/dL Lipase (8-78) Units/L TSH (0.350-4.840) mcIU/mL Free T4 (0.70-1.48) ng/dl Free T3 (1.71-3.71) pg/mL Urine Color (Yellow) Urine Clarity (Clear) Urine pH (5.0-8.0) pH Units Ur Specific [place] (1.010-1.025) Urine Protein (Neg-Trace) mg/dL Urine Glucose (UA) (Normal) mg/dL Urine Ketones (Negative) mg/dL Urine Blood (Negative) Urine Nitrite (Negative) Urine Bilirubin (Negative) Urine Urobilinogen (Normal) mg/dL Ur Leukocyte Esterase (Negative) Urine Microscopic RBC (0-3) per hpf Urine Microscopic WBC (0-3) per hpf Ur Squamous Epith Cells (None-Few) per lpf Urine Bacteria (None-Few) per hpf Hyaline Casts (None-Few) per lpf Chlamy pneumoniae PCR (Not Detect) Adenovirus (PCR) (Not Detect) B. pertussis DNA (PCR) (Not Detect) Coronavirus OC43 (PCR) (Not Detect) Coronavirus HKU1 (PCR) (Not Detect) Coronavirus 229E (PCR) (Not Detect) Coronavirus NL63 (PCR) (Not Detect) Human Metapneumovirus (Not Detect) Influenza A (H1) PCR (Not Detect) Influ A (H1N1/09) PCR (Not Detect) Influenza A (H3) PCR (Not Detect) Influenza A Untype (PCR) (Not Detect) Influenza Type B (PCR) (Not Detect) M.pneumoniae DNA (PCR) (Not Detect) Parainfluenza 1 (PCR) (Not Detect) Parainfluenza 2 (PCR) (Not Detect) Parainfluenza 3 (PCR) (Not Detect) Parainfluenza 4 (PCR) (Not Detect) RSV (PCR) (Not Detect) Entero/Rhino (PCR) (Not Detect) 11/10/16 11/10/16 11/10/16 Range/Units 18:03 20:00 23:03 WBC (4.3-11.1) K/mcL RBC (3.82-4.97) M/mcL Hgb (11.5-15.4) g/dL Hct (35.3-44.9) % MCV (83.0-100.0) fL MCH (28.0-33.3) pg MCHC (31.6-35.5) g/dL RDW (11.5-14.5) % Plt Count (140-400) K/mcL MPV (9.4-12.4) fL Immature Gran % (0-4) % Seg Neutrophils % % Band Neutrophils % (0-4) % Lymphocytes % % Monocytes % % Eosinophils % % Basophils % % Neutrophils # (1.6-8.9) K/mcL Lymphocytes # (0.6-4.6) K/mcL Monocytes # (0.0-1.3) K/mcL Eosinophils # (0.0-0.6) K/mcL Basophils # (0.0-0.2) K/mcL Nucleated RBCs/100 WBC (0) /100 WBC Hypersegmented Neuts (Not Present) Toxic Granulation (Not Present) Platelet Estimate (Normal) Large Platelets (Not Present) APTT (26.0-36.0) Seconds ABG pH 7.39 (7.32-7.45) pH Units ABG pCO2 60 H (35-45) mmHg ABG pO2 58 L (85-104) mmHg ABG HCO3 36.3 H (21-27) mEQ/L ABG Total CO2 38.1 H (20-26) mEq/L ABG O2 Saturation 89 L (95-98) % ABG Base Excess 8.8 H (-2.0 to 3.0) mEq/L Respiration Rate Blood Gas Modality VC Inspired O2 60 % Tidal Volume cc PEEP cm H2O Sodium (136-145) mEq/L Potassium (3.5-4.5) mEq/L Chloride (98-109) mEq/L Carbon Dioxide (19-29) mEq/L BUN (7-20) mg/dL Creatinine (0.57-1.11) mg/dL Est GFR ( Amer) (> 60) Est GFR (Non-Af Amer) (> 60) BUN/Creatinine Ratio (6-26) Glucose (70-99) mg/dL POC Glucose 119 H 87 (58-89) Calculated Osmolality (280-300) Lactic Acid (0.5-2.2) mmol/L Calcium (8.6-10.8) mg/dL Ionized Calcium (1.15-1.35) mmol/L Phosphorus (2.3-4.7) mg/dL Magnesium (1.6-2.6) mg/dL Total Bilirubin (0.2-1.2) mg/dL Direct Bilirubin (0.0-0.5) mg/dL Indirect Bilirubin (0.0-1.2) mg/dL AST (5-34) Units/L ALT (0-55) Units/L Alkaline Phosphatase (38-126) Units/L Creatine Kinase (29-168) Units/L Troponin I (0-0.03) ng/mL Serum Total Protein (6.0-8.3) g/dL Albumin (3.5-5.0) g/dL Globulin (2.4-3.5) g/dL Albumin/Globulin Ratio (1.1-2.2) Triglycerides (< 150) mg/dL Lipase (8-78) Units/L TSH (0.350-4.840) mcIU/mL Free T4 (0.70-1.48) ng/dl Free T3 (1.71-3.71) pg/mL Urine Color (Yellow) Urine Clarity (Clear) Urine pH (5.0-8.0) pH Units Ur Specific [place] (1.010-1.025) Urine Protein (Neg-Trace) mg/dL Urine Glucose (UA) (Normal) mg/dL Urine Ketones (Negative) mg/dL Urine Blood (Negative) Urine Nitrite (Negative) Urine Bilirubin (Negative) Urine Urobilinogen (Normal) mg/dL Ur Leukocyte Esterase (Negative) Urine Microscopic RBC (0-3) per hpf Urine Microscopic WBC (0-3) per hpf Ur Squamous Epith Cells (None-Few) per lpf Urine Bacteria (None-Few) per hpf Hyaline Casts (None-Few) per lpf Chlamy pneumoniae PCR (Not Detect) Adenovirus (PCR) (Not Detect) B. pertussis DNA (PCR) (Not Detect) Coronavirus OC43 (PCR) (Not Detect) Coronavirus HKU1 (PCR) (Not Detect) Coronavirus 229E (PCR) (Not Detect) Coronavirus NL63 (PCR) (Not Detect) Human Metapneumovirus (Not Detect) Influenza A (H1) PCR (Not Detect) Influ A (H1N1/09) PCR (Not Detect) Influenza A (H3) PCR (Not Detect) Influenza A Untype (PCR) (Not Detect) Influenza Type B (PCR) (Not Detect) M.pneumoniae DNA (PCR) (Not Detect) Parainfluenza 1 (PCR) (Not Detect) Parainfluenza 2 (PCR) (Not Detect) Parainfluenza 3 (PCR) (Not Detect) Parainfluenza 4 (PCR) (Not Detect) RSV (PCR) (Not Detect) Entero/Rhino (PCR) (Not Detect) 11/11/16 11/11/16 11/11/16 Range/Units 03:00 03:00 04:10 WBC 13.1 H (4.3-11.1) K/mcL RBC 4.73 (3.82-4.97) M/mcL Hgb 13.6 (11.5-15.4) g/dL Hct 41.6 (35.3-44.9) % MCV 87.9 (83.0-100.0) fL MCH 28.8 (28.0-33.3) pg MCHC 32.7 (31.6-35.5) g/dL RDW 16.1 H (11.5-14.5) % Plt Count 159 (140-400) K/mcL MPV 10.2 (9.4-12.4) fL Immature Gran % 0.5 (0-4) % Seg Neutrophils % 85.1 % Band Neutrophils % (0-4) % Lymphocytes % 5.7 % Monocytes % 8.3 % Eosinophils % 0.3 % Basophils % 0.1 % Neutrophils # 11.2 H (1.6-8.9) K/mcL Lymphocytes # 0.8 (0.6-4.6) K/mcL Monocytes # 1.1 (0.0-1.3) K/mcL Eosinophils # 0.0 (0.0-0.6) K/mcL Basophils # 0.0 (0.0-0.2) K/mcL Nucleated RBCs/100 WBC 0.2 H (0) /100 WBC Hypersegmented Neuts (Not Present) Toxic Granulation (Not Present) Platelet Estimate (Normal) Large Platelets (Not Present) APTT (26.0-36.0) Seconds ABG pH 7.36 (7.32-7.45) pH Units ABG pCO2 65 H (35-45) mmHg ABG pO2 57 L (85-104) mmHg ABG HCO3 36.7 H (21-27) mEQ/L ABG Total CO2 38.7 H (20-26) mEq/L ABG O2 Saturation 88 L (95-98) % ABG Base Excess 8.3 H (-2.0 to 3.0) mEq/L Respiration Rate Blood Gas Modality VC Inspired O2 65 % Tidal Volume cc PEEP cm H2O Sodium 137 (136-145) mEq/L Potassium 4.2 (3.5-4.5) mEq/L Chloride 93 L (98-109) mEq/L Carbon Dioxide 31 H (19-29) mEq/L BUN 72 H (7-20) mg/dL Creatinine 2.28 H (0.57-1.11) mg/dL Est GFR ( Amer) 26 L (> 60) Est GFR (Non-Af Amer) 22 L (> 60) BUN/Creatinine Ratio 32 H (6-26) Glucose 109 H (70-99) mg/dL POC Glucose (58-89) Calculated Osmolality 306 H (280-300) Lactic Acid (0.5-2.2) mmol/L Calcium 8.4 L (8.6-10.8) mg/dL Ionized Calcium 1.04 L (1.15-1.35) mmol/L Phosphorus 6.4 H (2.3-4.7) mg/dL Magnesium 1.9 (1.6-2.6) mg/dL Total Bilirubin 0.6 (0.2-1.2) mg/dL Direct Bilirubin 0.3 (0.0-0.5) mg/dL Indirect Bilirubin 0.3 (0.0-1.2) mg/dL AST 37 H (5-34) Units/L ALT 57 H (0-55) Units/L Alkaline Phosphatase 63 (38-126) Units/L Creatine Kinase (29-168) Units/L Troponin I (0-0.03) ng/mL Serum Total Protein 5.5 L (6.0-8.3) g/dL Albumin 2.5 L (3.5-5.0) g/dL Globulin 3.0 (2.4-3.5) g/dL Albumin/Globulin Ratio 0.8 L (1.1-2.2) Triglycerides (< 150) mg/dL Lipase (8-78) Units/L TSH (0.350-4.840) mcIU/mL Free T4 (0.70-1.48) ng/dl Free T3 (1.71-3.71) pg/mL Urine Color (Yellow) Urine Clarity (Clear) Urine pH (5.0-8.0) pH Units Ur Specific [place] (1.010-1.025) Urine Protein (Neg-Trace) mg/dL Urine Glucose (UA) (Normal) mg/dL Urine Ketones (Negative) mg/dL Urine Blood (Negative) Urine Nitrite (Negative) Urine Bilirubin (Negative) Urine Urobilinogen (Normal) mg/dL Ur Leukocyte Esterase (Negative) Urine Microscopic RBC (0-3) per hpf Urine Microscopic WBC (0-3) per hpf Ur Squamous Epith Cells (None-Few) per lpf Urine Bacteria (None-Few) per hpf Hyaline Casts (None-Few) per lpf Chlamy pneumoniae PCR (Not Detect) Adenovirus (PCR) (Not Detect) B. pertussis DNA (PCR) (Not Detect) Coronavirus OC43 (PCR) (Not Detect) Coronavirus HKU1 (PCR) (Not Detect) Coronavirus 229E (PCR) (Not Detect) Coronavirus NL63 (PCR) (Not Detect) Human Metapneumovirus (Not Detect) Influenza A (H1) PCR (Not Detect) Influ A (H1N1/09) PCR (Not Detect) Influenza A (H3) PCR (Not Detect) Influenza A Untype (PCR) (Not Detect) Influenza Type B (PCR) (Not Detect) M.pneumoniae DNA (PCR) (Not Detect) Parainfluenza 1 (PCR) (Not Detect) Parainfluenza 2 (PCR) (Not Detect) Parainfluenza 3 (PCR) (Not Detect) Parainfluenza 4 (PCR) (Not Detect) RSV (PCR) (Not Detect) Entero/Rhino (PCR) (Not Detect) 11/11/16 11/11/16 11/11/16 Range/Units 11:26 11:27 14:55 WBC (4.3-11.1) K/mcL RBC (3.82-4.97) M/mcL Hgb (11.5-15.4) g/dL Hct (35.3-44.9) % MCV (83.0-100.0) fL MCH (28.0-33.3) pg MCHC (31.6-35.5) g/dL RDW (11.5-14.5) % Plt Count (140-400) K/mcL MPV (9.4-12.4) fL Immature Gran % (0-4) % Seg Neutrophils % % Band Neutrophils % (0-4) % Lymphocytes % % Monocytes % % Eosinophils % % Basophils % % Neutrophils # (1.6-8.9) K/mcL Lymphocytes # (0.6-4.6) K/mcL Monocytes # (0.0-1.3) K/mcL Eosinophils # (0.0-0.6) K/mcL Basophils # (0.0-0.2) K/mcL Nucleated RBCs/100 WBC (0) /100 WBC Hypersegmented Neuts (Not Present) Toxic Granulation (Not Present) Platelet Estimate (Normal) Large Platelets (Not Present) APTT (26.0-36.0) Seconds ABG pH 7.36 (7.32-7.45) pH Units ABG pCO2 67 H (35-45) mmHg ABG pO2 60 L (85-104) mmHg ABG HCO3 37.9 H (21-27) mEQ/L ABG Total CO2 40.0 H (20-26) mEq/L ABG O2 Saturation 90 L (95-98) % ABG Base Excess 9.4 H (-2.0 to 3.0) mEq/L Respiration Rate 24 Blood Gas Modality VC Inspired O2 70 % Tidal Volume 360 cc PEEP 14 cm H2O Sodium 136 (136-145) mEq/L Potassium 4.3 (3.5-4.5) mEq/L Chloride 93 L (98-109) mEq/L Carbon Dioxide 31 H (19-29) mEq/L BUN 76 H (7-20) mg/dL Creatinine 2.29 H (0.57-1.11) mg/dL Est GFR ( Amer) 26 L (> 60) Est GFR (Non-Af Amer) 22 L (> 60) BUN/Creatinine Ratio 33 H (6-26) Glucose 92 (70-99) mg/dL POC Glucose 106 H (58-89) Calculated Osmolality 304 H (280-300) Lactic Acid (0.5-2.2) mmol/L Calcium 8.9 (8.6-10.8) mg/dL Ionized Calcium 1.07 L (1.15-1.35) mmol/L Phosphorus 6.9 H (2.3-4.7) mg/dL Magnesium 2.3 (1.6-2.6) mg/dL Total Bilirubin (0.2-1.2) mg/dL Direct Bilirubin (0.0-0.5) mg/dL Indirect Bilirubin (0.0-1.2) mg/dL AST (5-34) Units/L ALT (0-55) Units/L Alkaline Phosphatase (38-126) Units/L Creatine Kinase (29-168) Units/L Troponin I (0-0.03) ng/mL Serum Total Protein (6.0-8.3) g/dL Albumin (3.5-5.0) g/dL Globulin (2.4-3.5) g/dL Albumin/Globulin Ratio (1.1-2.2) Triglycerides (< 150) mg/dL Lipase (8-78) Units/L TSH (0.350-4.840) mcIU/mL Free T4 (0.70-1.48) ng/dl Free T3 (1.71-3.71) pg/mL Urine Color (Yellow) Urine Clarity (Clear) Urine pH (5.0-8.0) pH Units Ur Specific [place] (1.010-1.025) Urine Protein (Neg-Trace) mg/dL Urine Glucose (UA) (Normal) mg/dL Urine Ketones (Negative) mg/dL Urine Blood (Negative) Urine Nitrite (Negative) Urine Bilirubin (Negative) Urine Urobilinogen (Normal) mg/dL Ur Leukocyte Esterase (Negative) Urine Microscopic RBC (0-3) per hpf Urine Microscopic WBC (0-3) per hpf Ur Squamous Epith Cells (None-Few) per lpf Urine Bacteria (None-Few) per hpf Hyaline Casts (None-Few) per lpf Chlamy pneumoniae PCR (Not Detect) Adenovirus (PCR) (Not Detect) B. pertussis DNA (PCR) (Not Detect) Coronavirus OC43 (PCR) (Not Detect) Coronavirus HKU1 (PCR) (Not Detect) Coronavirus 229E (PCR) (Not Detect) Coronavirus NL63 (PCR) (Not Detect) Human Metapneumovirus (Not Detect) Influenza A (H1) PCR (Not Detect) Influ A (H1N1/09) PCR (Not Detect) Influenza A (H3) PCR (Not Detect) Influenza A Untype (PCR) (Not Detect) Influenza Type B (PCR) (Not Detect) M.pneumoniae DNA (PCR) (Not Detect) Parainfluenza 1 (PCR) (Not Detect) Parainfluenza 2 (PCR) (Not Detect) Parainfluenza 3 (PCR) (Not Detect) Parainfluenza 4 (PCR) (Not Detect) RSV (PCR) (Not Detect) Entero/Rhino (PCR) (Not Detect) 11/11/16 11/11/16 11/12/16 Range/Units 18:18 23:32 03:00 WBC 13.4 H (4.3-11.1) K/mcL RBC 4.84 (3.82-4.97) M/mcL Hgb 13.5 (11.5-15.4) g/dL Hct 42.8 (35.3-44.9) % MCV 88.4 (83.0-100.0) fL MCH 27.9 L (28.0-33.3) pg MCHC 31.5 L (31.6-35.5) g/dL RDW 16.0 H (11.5-14.5) % Plt Count 152 (140-400) K/mcL MPV 10.5 (9.4-12.4) fL Immature Gran % 0.5 (0-4) % Seg Neutrophils % 85.8 % Band Neutrophils % (0-4) % Lymphocytes % 3.8 % Monocytes % 9.1 % Eosinophils % 0.7 % Basophils % 0.1 % Neutrophils # 11.5 H (1.6-8.9) K/mcL Lymphocytes # 0.5 L (0.6-4.6) K/mcL Monocytes # 1.2 (0.0-1.3) K/mcL Eosinophils # 0.1 (0.0-0.6) K/mcL Basophils # 0.0 (0.0-0.2) K/mcL Nucleated RBCs/100 WBC (0) /100 WBC Hypersegmented Neuts (Not Present) Toxic Granulation (Not Present) Platelet Estimate (Normal) Large Platelets (Not Present) APTT (26.0-36.0) Seconds ABG pH (7.32-7.45) pH Units ABG pCO2 (35-45) mmHg ABG pO2 (85-104) mmHg ABG HCO3 (21-27) mEQ/L ABG Total CO2 (20-26) mEq/L ABG O2 Saturation (95-98) % ABG Base Excess (-2.0 to 3.0) mEq/L Respiration Rate Blood Gas Modality Inspired O2 % Tidal Volume cc PEEP cm H2O Sodium (136-145) mEq/L Potassium (3.5-4.5) mEq/L Chloride (98-109) mEq/L Carbon Dioxide (19-29) mEq/L BUN (7-20) mg/dL Creatinine (0.57-1.11) mg/dL Est GFR ( Amer) (> 60) Est GFR (Non-Af Amer) (> 60) BUN/Creatinine Ratio (6-26) Glucose (70-99) mg/dL POC Glucose 128 H 105 H (58-89) Calculated Osmolality (280-300) Lactic Acid (0.5-2.2) mmol/L Calcium (8.6-10.8) mg/dL Ionized Calcium (1.15-1.35) mmol/L Phosphorus (2.3-4.7) mg/dL Magnesium (1.6-2.6) mg/dL Total Bilirubin (0.2-1.2) mg/dL Direct Bilirubin (0.0-0.5) mg/dL Indirect Bilirubin (0.0-1.2) mg/dL AST (5-34) Units/L ALT (0-55) Units/L Alkaline Phosphatase (38-126) Units/L Creatine Kinase (29-168) Units/L Troponin I (0-0.03) ng/mL Serum Total Protein (6.0-8.3) g/dL Albumin (3.5-5.0) g/dL Globulin (2.4-3.5) g/dL Albumin/Globulin Ratio (1.1-2.2) Triglycerides (< 150) mg/dL Lipase (8-78) Units/L TSH (0.350-4.840) mcIU/mL Free T4 (0.70-1.48) ng/dl Free T3 (1.71-3.71) pg/mL Urine Color (Yellow) Urine Clarity (Clear) Urine pH (5.0-8.0) pH Units Ur Specific [place] (1.010-1.025) Urine Protein (Neg-Trace) mg/dL Urine Glucose (UA) (Normal) mg/dL Urine Ketones (Negative) mg/dL Urine Blood (Negative) Urine Nitrite (Negative) Urine Bilirubin (Negative) Urine Urobilinogen (Normal) mg/dL Ur Leukocyte Esterase (Negative) Urine Microscopic RBC (0-3) per hpf Urine Microscopic WBC (0-3) per hpf Ur Squamous Epith Cells (None-Few) per lpf Urine Bacteria (None-Few) per hpf Hyaline Casts (None-Few) per lpf Chlamy pneumoniae PCR (Not Detect) Adenovirus (PCR) (Not Detect) B. pertussis DNA (PCR) (Not Detect) Coronavirus OC43 (PCR) (Not Detect) Coronavirus HKU1 (PCR) (Not Detect) Coronavirus 229E (PCR) (Not Detect) Coronavirus NL63 (PCR) (Not Detect) Human Metapneumovirus (Not Detect) Influenza A (H1) PCR (Not Detect) Influ A (H1N1/09) PCR (Not Detect) Influenza A (H3) PCR (Not Detect) Influenza A Untype (PCR) (Not Detect) Influenza Type B (PCR) (Not Detect) M.pneumoniae DNA (PCR) (Not Detect) Parainfluenza 1 (PCR) (Not Detect) Parainfluenza 2 (PCR) (Not Detect) Parainfluenza 3 (PCR) (Not Detect) Parainfluenza 4 (PCR) (Not Detect) RSV (PCR) (Not Detect) Entero/Rhino (PCR) (Not Detect) 01/12/17 01/12/17 01/12/17 Range/Units 03:00 04:07 10:50 WBC (4.3-11.1) K/mcL RBC (3.82-4.97) M/mcL Hgb (11.5-15.4) g/dL Hct (35.3-44.9) % MCV (83.0-100.0) fL MCH (28.0-33.3) pg MCHC (31.6-35.5) g/dL RDW (11.5-14.5) % Plt Count (140-400) K/mcL MPV (9.4-12.4) fL Immature Gran % (0-4) % Seg Neutrophils % % Band Neutrophils % (0-4) % Lymphocytes % % Monocytes % % Eosinophils % % Basophils % % Neutrophils # (1.6-8.9) K/mcL Lymphocytes # (0.6-4.6) K/mcL Monocytes # (0.0-1.3) K/mcL Eosinophils # (0.0-0.6) K/mcL Basophils # (0.0-0.2) K/mcL Nucleated RBCs/100 WBC (0) /100 WBC Hypersegmented Neuts (Not Present) Toxic Granulation (Not Present) Platelet Estimate (Normal) Large Platelets (Not Present) APTT (26.0-36.0) Seconds ABG pH 7.43 (7.32-7.45) pH Units ABG pCO2 60 H (35-45) mmHg ABG pO2 58 L (85-104) mmHg ABG HCO3 39.8 H (21-27) mEQ/L ABG Total CO2 41.6 H (20-26) mEq/L ABG O2 Saturation 90 L (95-98) % ABG Base Excess 12.7 H (-2.0 to 3.0) mEq/L Respiration Rate Blood Gas Modality VC+ Inspired O2 60 % Tidal Volume cc PEEP cm H2O Sodium 141 (136-145) mEq/L Potassium 4.3 (3.5-4.5) mEq/L Chloride 95 L (98-109) mEq/L Carbon Dioxide 32 H (19-29) mEq/L BUN 77 H (7-20) mg/dL Creatinine 2.16 H (0.57-1.11) mg/dL Est GFR ( Amer) 28 L (> 60) Est GFR (Non-Af Amer) 23 L (> 60) BUN/Creatinine Ratio 36 H (6-26) Glucose 98 (70-99) mg/dL POC Glucose 142 H (58-89) Calculated Osmolality 315 H (280-300) Lactic Acid (0.5-2.2) mmol/L Calcium 9.0 (8.6-10.8) mg/dL Ionized Calcium 1.08 L (1.15-1.35) mmol/L Phosphorus 6.2 H (2.3-4.7) mg/dL Magnesium 2.2 (1.6-2.6) mg/dL Total Bilirubin 0.8 (0.2-1.2) mg/dL Direct Bilirubin 0.5 (0.0-0.5) mg/dL Indirect Bilirubin 0.3 (0.0-1.2) mg/dL AST 54 H (5-34) Units/L ALT 51 (0-55) Units/L Alkaline Phosphatase 63 (38-126) Units/L Creatine Kinase (29-168) Units/L Troponin I (0-0.03) ng/mL Serum Total Protein 5.9 L (6.0-8.3) g/dL Albumin 2.4 L (3.5-5.0) g/dL Globulin 3.5 (2.4-3.5) g/dL Albumin/Globulin Ratio 0.7 L (1.1-2.2) Triglycerides (< 150) mg/dL Lipase (8-78) Units/L TSH (0.350-4.840) mcIU/mL Free T4 (0.70-1.48) ng/dl Free T3 (1.71-3.71) pg/mL Urine Color (Yellow) Urine Clarity (Clear) Urine pH (5.0-8.0) pH Units Ur Specific [place] (1.010-1.025) Urine Protein (Neg-Trace) mg/dL Urine Glucose (UA) (Normal) mg/dL Urine Ketones (Negative) mg/dL Urine Blood (Negative) Urine Nitrite (Negative) Urine Bilirubin (Negative) Urine Urobilinogen (Normal) mg/dL Ur Leukocyte Esterase (Negative) Urine Microscopic RBC (0-3) per hpf Urine Microscopic WBC (0-3) per hpf Ur Squamous Epith Cells (None-Few) per lpf Urine Bacteria (None-Few) per hpf Hyaline Casts (None-Few) per lpf Chlamy pneumoniae PCR (Not Detect) Adenovirus (PCR) (Not Detect) B. pertussis DNA (PCR) (Not Detect) Coronavirus OC43 (PCR) (Not Detect) Coronavirus HKU1 (PCR) (Not Detect) Coronavirus 229E (PCR) (Not Detect) Coronavirus NL63 (PCR) (Not Detect) Human Metapneumovirus (Not Detect) Influenza A (H1) PCR (Not Detect) Influ A (H1N1/09) PCR (Not Detect) Influenza A (H3) PCR (Not Detect) Influenza A Untype (PCR) (Not Detect) Influenza Type B (PCR) (Not Detect) M.pneumoniae DNA (PCR) (Not Detect) Parainfluenza 1 (PCR) (Not Detect) Parainfluenza 2 (PCR) (Not Detect) Parainfluenza 3 (PCR) (Not Detect) Parainfluenza 4 (PCR) (Not Detect) RSV (PCR) (Not Detect) Entero/Rhino (PCR) (Not Detect) 11/12/16 11/12/16 11/13/16 Range/Units 14:39 15:09 00:10 WBC (4.3-11.1) K/mcL RBC (3.82-4.97) M/mcL Hgb (11.5-15.4) g/dL Hct (35.3-44.9) % MCV (83.0-100.0) fL MCH (28.0-33.3) pg MCHC (31.6-35.5) g/dL RDW (11.5-14.5) % Plt Count (140-400) K/mcL MPV (9.4-12.4) fL Immature Gran % (0-4) % Seg Neutrophils % % Band Neutrophils % (0-4) % Lymphocytes % % Monocytes % % Eosinophils % % Basophils % % Neutrophils # (1.6-8.9) K/mcL Lymphocytes # (0.6-4.6) K/mcL Monocytes # (0.0-1.3) K/mcL Eosinophils # (0.0-0.6) K/mcL Basophils # (0.0-0.2) K/mcL Nucleated RBCs/100 WBC (0) /100 WBC Hypersegmented Neuts (Not Present) Toxic Granulation (Not Present) Platelet Estimate (Normal) Large Platelets (Not Present) APTT (26.0-36.0) Seconds ABG pH 7.40 (7.32-7.45) pH Units ABG pCO2 56 H (35-45) mmHg ABG pO2 60 L (85-104) mmHg ABG HCO3 34.7 H (21-27) mEQ/L ABG Total CO2 36.4 H (20-26) mEq/L ABG O2 Saturation 91 L (95-98) % ABG Base Excess 8.2 H (-2.0 to 3.0) mEq/L Respiration Rate Blood Gas Modality VCT DDRAKE Inspired O2 100.0 % Tidal Volume 360 cc PEEP cm H2O Sodium (136-145) mEq/L Potassium (3.5-4.5) mEq/L Chloride (98-109) mEq/L Carbon Dioxide (19-29) mEq/L BUN (7-20) mg/dL Creatinine (0.57-1.11) mg/dL Est GFR ( Amer) (> 60) Est GFR (Non-Af Amer) (> 60) BUN/Creatinine Ratio (6-26) Glucose (70-99) mg/dL POC Glucose 205 H (58-89) Calculated Osmolality (280-300) Lactic Acid (0.5-2.2) mmol/L Calcium (8.6-10.8) mg/dL Ionized Calcium (1.15-1.35) mmol/L Phosphorus (2.3-4.7) mg/dL Magnesium (1.6-2.6) mg/dL Total Bilirubin (0.2-1.2) mg/dL Direct Bilirubin (0.0-0.5) mg/dL Indirect Bilirubin (0.0-1.2) mg/dL AST (5-34) Units/L ALT (0-55) Units/L Alkaline Phosphatase (38-126) Units/L Creatine Kinase (29-168) Units/L Troponin I 0.24 H* (0-0.03) ng/mL Serum Total Protein (6.0-8.3) g/dL Albumin (3.5-5.0) g/dL Globulin (2.4-3.5) g/dL Albumin/Globulin Ratio (1.1-2.2) Triglycerides (< 150) mg/dL Lipase (8-78) Units/L TSH (0.350-4.840) mcIU/mL Free T4 (0.70-1.48) ng/dl Free T3 (1.71-3.71) pg/mL Urine Color (Yellow) Urine Clarity (Clear) Urine pH (5.0-8.0) pH Units Ur Specific [place] (1.010-1.025) Urine Protein (Neg-Trace) mg/dL Urine Glucose (UA) (Normal) mg/dL Urine Ketones (Negative) mg/dL Urine Blood (Negative) Urine Nitrite (Negative) Urine Bilirubin (Negative) Urine Urobilinogen (Normal) mg/dL Ur Leukocyte Esterase (Negative) Urine Microscopic RBC (0-3) per hpf Urine Microscopic WBC (0-3) per hpf Ur Squamous Epith Cells (None-Few) per lpf Urine Bacteria (None-Few) per hpf Hyaline Casts (None-Few) per lpf Chlamy pneumoniae PCR (Not Detect) Adenovirus (PCR) (Not Detect) B. pertussis DNA (PCR) (Not Detect) Coronavirus OC43 (PCR) (Not Detect) Coronavirus HKU1 (PCR) (Not Detect) Coronavirus 229E (PCR) (Not Detect) Coronavirus NL63 (PCR) (Not Detect) Human Metapneumovirus (Not Detect) Influenza A (H1) PCR (Not Detect) Influ A (H1N1/09) PCR (Not Detect) Influenza A (H3) PCR (Not Detect) Influenza A Untype (PCR) (Not Detect) Influenza Type B (PCR) (Not Detect) M.pneumoniae DNA (PCR) (Not Detect) Parainfluenza 1 (PCR) (Not Detect) Parainfluenza 2 (PCR) (Not Detect) Parainfluenza 3 (PCR) (Not Detect) Parainfluenza 4 (PCR) (Not Detect) RSV (PCR) (Not Detect) Entero/Rhino (PCR) (Not Detect) 11/13/16 11/13/16 11/13/16 Range/Units 04:16 04:16 04:16 WBC 8.7 (4.3-11.1) K/mcL RBC 5.07 H (3.82-4.97) M/mcL Hgb 14.4 (11.5-15.4) g/dL Hct 44.2 (35.3-44.9) % MCV 87.2 (83.0-100.0) fL MCH 28.4 (28.0-33.3) pg MCHC 32.6 (31.6-35.5) g/dL RDW 15.8 H (11.5-14.5) % Plt Count 180 (140-400) K/mcL MPV 11.9 (9.4-12.4) fL Immature Gran % 0.5 (0-4) % Seg Neutrophils % 95.1 % Band Neutrophils % (0-4) % Lymphocytes % 1.5 % Monocytes % 2.8 % Eosinophils % 0.0 % Basophils % 0.1 % Neutrophils # 8.3 (1.6-8.9) K/mcL Lymphocytes # 0.1 L (0.6-4.6) K/mcL Monocytes # 0.2 (0.0-1.3) K/mcL Eosinophils # 0.0 (0.0-0.6) K/mcL Basophils # 0.0 (0.0-0.2) K/mcL Nucleated RBCs/100 WBC (0) /100 WBC Hypersegmented Neuts (Not Present) Toxic Granulation Present A (Not Present) Platelet Estimate Normal (Normal) Large Platelets (Not Present) APTT (26.0-36.0) Seconds ABG pH (7.32-7.45) pH Units ABG pCO2 (35-45) mmHg ABG pO2 (85-104) mmHg ABG HCO3 (21-27) mEQ/L ABG Total CO2 (20-26) mEq/L ABG O2 Saturation (95-98) % ABG Base Excess (-2.0 to 3.0) mEq/L Respiration Rate Blood Gas Modality Inspired O2 % Tidal Volume cc PEEP cm H2O Sodium 139 (136-145) mEq/L Potassium 4.3 (3.5-4.5) mEq/L Chloride 97 L (98-109) mEq/L Carbon Dioxide 30 H (19-29) mEq/L BUN 66 H (7-20) mg/dL Creatinine 1.89 H (0.57-1.11) mg/dL Est GFR ( Amer) 33 L (> 60) Est GFR (Non-Af Amer) 27 L (> 60) BUN/Creatinine Ratio 35 H (6-26) Glucose 200 H (70-99) mg/dL POC Glucose (58-89) Calculated Osmolality 313 H (280-300) Lactic Acid (0.5-2.2) mmol/L Calcium 9.6 (8.6-10.8) mg/dL Ionized Calcium 1.13 L (1.15-1.35) mmol/L Phosphorus 4.9 H (2.3-4.7) mg/dL Magnesium 2.4 (1.6-2.6) mg/dL Total Bilirubin 0.4 (0.2-1.2) mg/dL Direct Bilirubin 0.3 (0.0-0.5) mg/dL Indirect Bilirubin 0.1 (0.0-1.2) mg/dL AST 33 (5-34) Units/L ALT 48 (0-55) Units/L Alkaline Phosphatase 74 (38-126) Units/L Creatine Kinase (29-168) Units/L Troponin I 0.17 H* (0-0.03) ng/mL Serum Total Protein 6.6 (6.0-8.3) g/dL Albumin 2.4 L (3.5-5.0) g/dL Globulin 4.2 H (2.4-3.5) g/dL Albumin/Globulin Ratio 0.6 L (1.1-2.2) Triglycerides (< 150) mg/dL Lipase (8-78) Units/L TSH (0.350-4.840) mcIU/mL Free T4 (0.70-1.48) ng/dl Free T3 (1.71-3.71) pg/mL Urine Color (Yellow) Urine Clarity (Clear) Urine pH (5.0-8.0) pH Units Ur Specific [place] (1.010-1.025) Urine Protein (Neg-Trace) mg/dL Urine Glucose (UA) (Normal) mg/dL Urine Ketones (Negative) mg/dL Urine Blood (Negative) Urine Nitrite (Negative) Urine Bilirubin (Negative) Urine Urobilinogen (Normal) mg/dL Ur Leukocyte Esterase (Negative) Urine Microscopic RBC (0-3) per hpf Urine Microscopic WBC (0-3) per hpf Ur Squamous Epith Cells (None-Few) per lpf Urine Bacteria (None-Few) per hpf Hyaline Casts (None-Few) per lpf Chlamy pneumoniae PCR (Not Detect) Adenovirus (PCR) (Not Detect) B. pertussis DNA (PCR) (Not Detect) Coronavirus OC43 (PCR) (Not Detect) Coronavirus HKU1 (PCR) (Not Detect) Coronavirus 229E (PCR) (Not Detect) Coronavirus NL63 (PCR) (Not Detect) Human Metapneumovirus (Not Detect) Influenza A (H1) PCR (Not Detect) Influ A (H1N1/09) PCR (Not Detect) Influenza A (H3) PCR (Not Detect) Influenza A Untype (PCR) (Not Detect) Influenza Type B (PCR) (Not Detect) M.pneumoniae DNA (PCR) (Not Detect) Parainfluenza 1 (PCR) (Not Detect) Parainfluenza 2 (PCR) (Not Detect) Parainfluenza 3 (PCR) (Not Detect) Parainfluenza 4 (PCR) (Not Detect) RSV (PCR) (Not Detect) Entero/Rhino (PCR) (Not Detect) 11/13/16 11/13/16 11/13/16 Range/Units 05:20 07:23 10:54 WBC (4.3-11.1) K/mcL RBC (3.82-4.97) M/mcL Hgb (11.5-15.4) g/dL Hct (35.3-44.9) % MCV (83.0-100.0) fL MCH (28.0-33.3) pg MCHC (31.6-35.5) g/dL RDW (11.5-14.5) % Plt Count (140-400) K/mcL MPV (9.4-12.4) fL Immature Gran % (0-4) % Seg Neutrophils % % Band Neutrophils % (0-4) % Lymphocytes % % Monocytes % % Eosinophils % % Basophils % % Neutrophils # (1.6-8.9) K/mcL Lymphocytes # (0.6-4.6) K/mcL Monocytes # (0.0-1.3) K/mcL Eosinophils # (0.0-0.6) K/mcL Basophils # (0.0-0.2) K/mcL Nucleated RBCs/100 WBC (0) /100 WBC Hypersegmented Neuts (Not Present) Toxic Granulation (Not Present) Platelet Estimate (Normal) Large Platelets (Not Present) APTT (26.0-36.0) Seconds ABG pH 7.41 (7.32-7.45) pH Units ABG pCO2 57 H (35-45) mmHg ABG pO2 65 L (85-104) mmHg ABG HCO3 36.1 H (21-27) mEQ/L ABG Total CO2 37.8 H (20-26) mEq/L ABG O2 Saturation 93 L (95-98) % ABG Base Excess 9.0 H (-2.0 to 3.0) mEq/L Respiration Rate Blood Gas Modality VC+ Inspired O2 80 % Tidal Volume cc PEEP cm H2O Sodium (136-145) mEq/L Potassium (3.5-4.5) mEq/L Chloride (98-109) mEq/L Carbon Dioxide (19-29) mEq/L BUN (7-20) mg/dL Creatinine (0.57-1.11) mg/dL Est GFR ( Amer) (> 60) Est GFR (Non-Af Amer) (> 60) BUN/Creatinine Ratio (6-26) Glucose (70-99) mg/dL POC Glucose 171 H 213 H (58-89) Calculated Osmolality (280-300) Lactic Acid (0.5-2.2) mmol/L Calcium (8.6-10.8) mg/dL Ionized Calcium (1.15-1.35) mmol/L Phosphorus (2.3-4.7) mg/dL Magnesium (1.6-2.6) mg/dL Total Bilirubin (0.2-1.2) mg/dL Direct Bilirubin (0.0-0.5) mg/dL Indirect Bilirubin (0.0-1.2) mg/dL AST (5-34) Units/L ALT (0-55) Units/L Alkaline Phosphatase (38-126) Units/L Creatine Kinase (29-168) Units/L Troponin I (0-0.03) ng/mL Serum Total Protein (6.0-8.3) g/dL Albumin (3.5-5.0) g/dL Globulin (2.4-3.5) g/dL Albumin/Globulin Ratio (1.1-2.2) Triglycerides (< 150) mg/dL Lipase (8-78) Units/L TSH (0.350-4.840) mcIU/mL Free T4 (0.70-1.48) ng/dl Free T3 (1.71-3.71) pg/mL Urine Color (Yellow) Urine Clarity (Clear) Urine pH (5.0-8.0) pH Units Ur Specific [place] (1.010-1.025) Urine Protein (Neg-Trace) mg/dL Urine Glucose (UA) (Normal) mg/dL Urine Ketones (Negative) mg/dL Urine Blood (Negative) Urine Nitrite (Negative) Urine Bilirubin (Negative) Urine Urobilinogen (Normal) mg/dL Ur Leukocyte Esterase (Negative) Urine Microscopic RBC (0-3) per hpf Urine Microscopic WBC (0-3) per hpf Ur Squamous Epith Cells (None-Few) per lpf Urine Bacteria (None-Few) per hpf Hyaline Casts (None-Few) per lpf Chlamy pneumoniae PCR (Not Detect) Adenovirus (PCR) (Not Detect) B. pertussis DNA (PCR) (Not Detect) Coronavirus OC43 (PCR) (Not Detect) Coronavirus HKU1 (PCR) (Not Detect) Coronavirus 229E (PCR) (Not Detect) Coronavirus NL63 (PCR) (Not Detect) Human Metapneumovirus (Not Detect) Influenza A (H1) PCR (Not Detect) Influ A (H1N1/09) PCR (Not Detect) Influenza A (H3) PCR (Not Detect) Influenza A Untype (PCR) (Not Detect) Influenza Type B (PCR) (Not Detect) M.pneumoniae DNA (PCR) (Not Detect) Parainfluenza 1 (PCR) (Not Detect) Parainfluenza 2 (PCR) (Not Detect) Parainfluenza 3 (PCR) (Not Detect) Parainfluenza 4 (PCR) (Not Detect) RSV (PCR) (Not Detect) Entero/Rhino (PCR) (Not Detect) 11/13/16 11/13/16 11/14/16 Range/Units 17:11 23:36 03:15 WBC 9.7 (4.3-11.1) K/mcL RBC 4.99 H (3.82-4.97) M/mcL Hgb 14.4 (11.5-15.4) g/dL Hct 43.9 (35.3-44.9) % MCV 88.0 (83.0-100.0) fL MCH 28.9 (28.0-33.3) pg MCHC 32.8 (31.6-35.5) g/dL RDW 15.7 H (11.5-14.5) % Plt Count 201 (140-400) K/mcL MPV 11.1 (9.4-12.4) fL Immature Gran % 0.5 (0-4) % Seg Neutrophils % 92.5 % Band Neutrophils % (0-4) % Lymphocytes % 1.2 % Monocytes % 5.7 % Eosinophils % 0.0 % Basophils % 0.1 % Neutrophils # 9.0 H (1.6-8.9) K/mcL Lymphocytes # 0.1 L (0.6-4.6) K/mcL Monocytes # 0.6 (0.0-1.3) K/mcL Eosinophils # 0.0 (0.0-0.6) K/mcL Basophils # 0.0 (0.0-0.2) K/mcL Nucleated RBCs/100 WBC (0) /100 WBC Hypersegmented Neuts Present A (Not Present) Toxic Granulation Present A (Not Present) Platelet Estimate Normal (Normal) Large Platelets Present A (Not Present) APTT (26.0-36.0) Seconds ABG pH (7.32-7.45) pH Units ABG pCO2 (35-45) mmHg ABG pO2 (85-104) mmHg ABG HCO3 (21-27) mEQ/L ABG Total CO2 (20-26) mEq/L ABG O2 Saturation (95-98) % ABG Base Excess (-2.0 to 3.0) mEq/L Respiration Rate Blood Gas Modality Inspired O2 % Tidal Volume cc PEEP cm H2O Sodium (136-145) mEq/L Potassium (3.5-4.5) mEq/L Chloride (98-109) mEq/L Carbon Dioxide (19-29) mEq/L BUN (7-20) mg/dL Creatinine (0.57-1.11) mg/dL Est GFR ( Amer) (> 60) Est GFR (Non-Af Amer) (> 60) BUN/Creatinine Ratio (6-26) Glucose (70-99) mg/dL POC Glucose 200 H 185 H (58-89) Calculated Osmolality (280-300) Lactic Acid (0.5-2.2) mmol/L Calcium (8.6-10.8) mg/dL Ionized Calcium (1.15-1.35) mmol/L Phosphorus (2.3-4.7) mg/dL Magnesium (1.6-2.6) mg/dL Total Bilirubin (0.2-1.2) mg/dL Direct Bilirubin (0.0-0.5) mg/dL Indirect Bilirubin (0.0-1.2) mg/dL AST (5-34) Units/L ALT (0-55) Units/L Alkaline Phosphatase (38-126) Units/L Creatine Kinase (29-168) Units/L Troponin I (0-0.03) ng/mL Serum Total Protein (6.0-8.3) g/dL Albumin (3.5-5.0) g/dL Globulin (2.4-3.5) g/dL Albumin/Globulin Ratio (1.1-2.2) Triglycerides (< 150) mg/dL Lipase (8-78) Units/L TSH (0.350-4.840) mcIU/mL Free T4 (0.70-1.48) ng/dl Free T3 (1.71-3.71) pg/mL Urine Color (Yellow) Urine Clarity (Clear) Urine pH (5.0-8.0) pH Units Ur Specific [place] (1.010-1.025) Urine Protein (Neg-Trace) mg/dL Urine Glucose (UA) (Normal) mg/dL Urine Ketones (Negative) mg/dL Urine Blood (Negative) Urine Nitrite (Negative) Urine Bilirubin (Negative) Urine Urobilinogen (Normal) mg/dL Ur Leukocyte Esterase (Negative) Urine Microscopic RBC (0-3) per hpf Urine Microscopic WBC (0-3) per hpf Ur Squamous Epith Cells (None-Few) per lpf Urine Bacteria (None-Few) per hpf Hyaline Casts (None-Few) per lpf Chlamy pneumoniae PCR (Not Detect) Adenovirus (PCR) (Not Detect) B. pertussis DNA (PCR) (Not Detect) Coronavirus OC43 (PCR) (Not Detect) Coronavirus HKU1 (PCR) (Not Detect) Coronavirus 229E (PCR) (Not Detect) Coronavirus NL63 (PCR) (Not Detect) Human Metapneumovirus (Not Detect) Influenza A (H1) PCR (Not Detect) Influ A (H1N1/09) PCR (Not Detect) Influenza A (H3) PCR (Not Detect) Influenza A Untype (PCR) (Not Detect) Influenza Type B (PCR) (Not Detect) M.pneumoniae DNA (PCR) (Not Detect) Parainfluenza 1 (PCR) (Not Detect) Parainfluenza 2 (PCR) (Not Detect) Parainfluenza 3 (PCR) (Not Detect) Parainfluenza 4 (PCR) (Not Detect) RSV (PCR) (Not Detect) Entero/Rhino (PCR) (Not Detect) 11/14/16 11/14/16 11/14/16 Range/Units 03:15 04:40 11:47 WBC (4.3-11.1) K/mcL RBC (3.82-4.97) M/mcL Hgb (11.5-15.4) g/dL Hct (35.3-44.9) % MCV (83.0-100.0) fL MCH (28.0-33.3) pg MCHC (31.6-35.5) g/dL RDW (11.5-14.5) % Plt Count (140-400) K/mcL MPV (9.4-12.4) fL Immature Gran % (0-4) % Seg Neutrophils % % Band Neutrophils % (0-4) % Lymphocytes % % Monocytes % % Eosinophils % % Basophils % % Neutrophils # (1.6-8.9) K/mcL Lymphocytes # (0.6-4.6) K/mcL Monocytes # (0.0-1.3) K/mcL Eosinophils # (0.0-0.6) K/mcL Basophils # (0.0-0.2) K/mcL Nucleated RBCs/100 WBC (0) /100 WBC Hypersegmented Neuts (Not Present) Toxic Granulation (Not Present) Platelet Estimate (Normal) Large Platelets (Not Present) APTT (26.0-36.0) Seconds ABG pH 7.40 (7.32-7.45) pH Units ABG pCO2 60 H (35-45) mmHg ABG pO2 64 L (85-104) mmHg ABG HCO3 37.2 H (21-27) mEQ/L ABG Total CO2 39.0 H (20-26) mEq/L ABG O2 Saturation 92 L (95-98) % ABG Base Excess 10.2 H (-2.0 to 3.0) mEq/L Respiration Rate Blood Gas Modality [id number] Inspired O2 60.0 % Tidal Volume 360 cc PEEP 14.0 cm H2O Sodium 141 (136-145) mEq/L Potassium 3.5 (3.5-4.5) mEq/L Chloride 95 L (98-109) mEq/L Carbon Dioxide 31 H (19-29) mEq/L BUN 69 H (7-20) mg/dL Creatinine 1.96 H (0.57-1.11) mg/dL Est GFR ( Amer) 32 L (> 60) Est GFR (Non-Af Amer) 26 L (> 60) BUN/Creatinine Ratio 35 H (6-26) Glucose 208 H (70-99) mg/dL POC Glucose 202 H (58-89) Calculated Osmolality 318 H (280-300) Lactic Acid (0.5-2.2) mmol/L Calcium 9.8 (8.6-10.8) mg/dL Ionized Calcium 1.17 (1.15-1.35) mmol/L Phosphorus 4.9 H (2.3-4.7) mg/dL Magnesium 2.4 (1.6-2.6) mg/dL Total Bilirubin (0.2-1.2) mg/dL Direct Bilirubin (0.0-0.5) mg/dL Indirect Bilirubin (0.0-1.2) mg/dL AST (5-34) Units/L ALT (0-55) Units/L Alkaline Phosphatase (38-126) Units/L Creatine Kinase (29-168) Units/L Troponin I (0-0.03) ng/mL Serum Total Protein (6.0-8.3) g/dL Albumin (3.5-5.0) g/dL Globulin (2.4-3.5) g/dL Albumin/Globulin Ratio (1.1-2.2) Triglycerides (< 150) mg/dL Lipase (8-78) Units/L TSH (0.350-4.840) mcIU/mL Free T4 (0.70-1.48) ng/dl Free T3 (1.71-3.71) pg/mL Urine Color (Yellow) Urine Clarity (Clear) Urine pH (5.0-8.0) pH Units Ur Specific [place] (1.010-1.025) Urine Protein (Neg-Trace) mg/dL Urine Glucose (UA) (Normal) mg/dL Urine Ketones (Negative) mg/dL Urine Blood (Negative) Urine Nitrite (Negative) Urine Bilirubin (Negative) Urine Urobilinogen (Normal) mg/dL Ur Leukocyte Esterase (Negative) Urine Microscopic RBC (0-3) per hpf Urine Microscopic WBC (0-3) per hpf Ur Squamous Epith Cells (None-Few) per lpf Urine Bacteria (None-Few) per hpf Hyaline Casts (None-Few) per lpf Chlamy pneumoniae PCR (Not Detect) Adenovirus (PCR) (Not Detect) B. pertussis DNA (PCR) (Not Detect) Coronavirus OC43 (PCR) (Not Detect) Coronavirus HKU1 (PCR) (Not Detect) Coronavirus 229E (PCR) (Not Detect) Coronavirus NL63 (PCR) (Not Detect) Human Metapneumovirus (Not Detect) Influenza A (H1) PCR (Not Detect) Influ A (H1N1/09) PCR (Not Detect) Influenza A (H3) PCR (Not Detect) Influenza A Untype (PCR) (Not Detect) Influenza Type B (PCR) (Not Detect) M.pneumoniae DNA (PCR) (Not Detect) Parainfluenza 1 (PCR) (Not Detect) Parainfluenza 2 (PCR) (Not Detect) Parainfluenza 3 (PCR) (Not Detect) Parainfluenza 4 (PCR) (Not Detect) RSV (PCR) (Not Detect) Entero/Rhino (PCR) (Not Detect) 11/14/16 11/14/16 11/14/16 Range/Units 15:57 17:37 21:15 WBC (4.3-11.1) K/mcL RBC (3.82-4.97) M/mcL Hgb (11.5-15.4) g/dL Hct (35.3-44.9) % MCV (83.0-100.0) fL MCH (28.0-33.3) pg MCHC (31.6-35.5) g/dL RDW (11.5-14.5) % Plt Count (140-400) K/mcL MPV (9.4-12.4) fL Immature Gran % (0-4) % Seg Neutrophils % % Band Neutrophils % (0-4) % Lymphocytes % % Monocytes % % Eosinophils % % Basophils % % Neutrophils # (1.6-8.9) K/mcL Lymphocytes # (0.6-4.6) K/mcL Monocytes # (0.0-1.3) K/mcL Eosinophils # (0.0-0.6) K/mcL Basophils # (0.0-0.2) K/mcL Nucleated RBCs/100 WBC (0) /100 WBC Hypersegmented Neuts (Not Present) Toxic Granulation (Not Present) Platelet Estimate (Normal) Large Platelets (Not Present) APTT (26.0-36.0) Seconds ABG pH 7.50 H (7.32-7.45) pH Units ABG pCO2 46 H (35-45) mmHg ABG pO2 51 L (85-104) mmHg ABG HCO3 35.9 H (21-27) mEQ/L ABG Total CO2 37.3 H (20-26) mEq/L ABG O2 Saturation 89 L (95-98) % ABG Base Excess 11.3 H (-2.0 to 3.0) mEq/L Respiration Rate Blood Gas Modality VCT Inspired O2 60.0 % Tidal Volume 360 cc PEEP 8.0 cm H2O Sodium 142 (136-145) mEq/L Potassium 3.8 (3.5-4.5) mEq/L Chloride 97 L (98-109) mEq/L Carbon Dioxide 29 (19-29) mEq/L BUN 75 H (7-20) mg/dL Creatinine 1.94 H (0.57-1.11) mg/dL Est GFR ( Amer) 32 L (> 60) Est GFR (Non-Af Amer) 26 L (> 60) BUN/Creatinine Ratio 39 H (6-26) Glucose 190 H (70-99) mg/dL POC Glucose 174 H (58-89) Calculated Osmolality 321 H (280-300) Lactic Acid (0.5-2.2) mmol/L Calcium 10.0 (8.6-10.8) mg/dL Ionized Calcium (1.15-1.35) mmol/L Phosphorus 5.0 H (2.3-4.7) mg/dL Magnesium (1.6-2.6) mg/dL Total Bilirubin (0.2-1.2) mg/dL Direct Bilirubin (0.0-0.5) mg/dL Indirect Bilirubin (0.0-1.2) mg/dL AST (5-34) Units/L ALT (0-55) Units/L Alkaline Phosphatase (38-126) Units/L Creatine Kinase (29-168) Units/L Troponin I (0-0.03) ng/mL Serum Total Protein (6.0-8.3) g/dL Albumin 2.6 L (3.5-5.0) g/dL Globulin (2.4-3.5) g/dL Albumin/Globulin Ratio (1.1-2.2) Triglycerides (< 150) mg/dL Lipase (8-78) Units/L TSH (0.350-4.840) mcIU/mL Free T4 (0.70-1.48) ng/dl Free T3 (1.71-3.71) pg/mL Urine Color (Yellow) Urine Clarity (Clear) Urine pH (5.0-8.0) pH Units Ur Specific [place] (1.010-1.025) Urine Protein (Neg-Trace) mg/dL Urine Glucose (UA) (Normal) mg/dL Urine Ketones (Negative) mg/dL Urine Blood (Negative) Urine Nitrite (Negative) Urine Bilirubin (Negative) Urine Urobilinogen (Normal) mg/dL Ur Leukocyte Esterase (Negative) Urine Microscopic RBC (0-3) per hpf Urine Microscopic WBC (0-3) per hpf Ur Squamous Epith Cells (None-Few) per lpf Urine Bacteria (None-Few) per hpf Hyaline Casts (None-Few) per lpf Chlamy pneumoniae PCR (Not Detect) Adenovirus (PCR) (Not Detect) B. pertussis DNA (PCR) (Not Detect) Coronavirus OC43 (PCR) (Not Detect) Coronavirus HKU1 (PCR) (Not Detect) Coronavirus 229E (PCR) (Not Detect) Coronavirus NL63 (PCR) (Not Detect) Human Metapneumovirus (Not Detect) Influenza A (H1) PCR (Not Detect) Influ A (H1N1/09) PCR (Not Detect) Influenza A (H3) PCR (Not Detect) Influenza A Untype (PCR) (Not Detect) Influenza Type B (PCR) (Not Detect) M.pneumoniae DNA (PCR) (Not Detect) Parainfluenza 1 (PCR) (Not Detect) Parainfluenza 2 (PCR) (Not Detect) Parainfluenza 3 (PCR) (Not Detect) Parainfluenza 4 (PCR) (Not Detect) RSV (PCR) (Not Detect) Entero/Rhino (PCR) (Not Detect) 11/14/16 11/15/16 11/15/16 Range/Units 23:39 04:10 05:19 WBC 8.0 (4.3-11.1) K/mcL RBC 5.41 H (3.82-4.97) M/mcL Hgb 15.2 (11.5-15.4) g/dL Hct 47.1 H (35.3-44.9) % MCV 87.1 (83.0-100.0) fL MCH 28.1 (28.0-33.3) pg MCHC 32.3 (31.6-35.5) g/dL RDW 15.9 H (11.5-14.5) % Plt Count 210 (140-400) K/mcL MPV 11.4 (9.4-12.4) fL Immature Gran % 0.5 (0-4) % Seg Neutrophils % 91.3 % Band Neutrophils % (0-4) % Lymphocytes % 1.4 % Monocytes % 6.8 % Eosinophils % 0.0 % Basophils % 0.0 % Neutrophils # 7.3 (1.6-8.9) K/mcL Lymphocytes # 0.1 L (0.6-4.6) K/mcL Monocytes # 0.5 (0.0-1.3) K/mcL Eosinophils # 0.0 (0.0-0.6) K/mcL Basophils # 0.0 (0.0-0.2) K/mcL Nucleated RBCs/100 WBC (0) /100 WBC Hypersegmented Neuts (Not Present) Toxic Granulation (Not Present) Platelet Estimate Normal (Normal) Large Platelets (Not Present) APTT (26.0-36.0) Seconds ABG pH 7.40 (7.32-7.45) pH Units ABG pCO2 62 H (35-45) mmHg ABG pO2 58 L (85-104) mmHg ABG HCO3 38.4 H (21-27) mEQ/L ABG Total CO2 40.3 H (20-26) mEq/L ABG O2 Saturation 90 L (95-98) % ABG Base Excess 11.2 H (-2.0 to 3.0) mEq/L Respiration Rate Blood Gas Modality [id number] Inspired O2 60.0 % Tidal Volume 360 cc PEEP 8.0 cm H2O Sodium (136-145) mEq/L Potassium (3.5-4.5) mEq/L Chloride (98-109) mEq/L Carbon Dioxide (19-29) mEq/L BUN (7-20) mg/dL Creatinine (0.57-1.11) mg/dL Est GFR ( Amer) (> 60) Est GFR (Non-Af Amer) (> 60) BUN/Creatinine Ratio (6-26) Glucose (70-99) mg/dL POC Glucose 183 H (58-89) Calculated Osmolality (280-300) Lactic Acid (0.5-2.2) mmol/L Calcium (8.6-10.8) mg/dL Ionized Calcium (1.15-1.35) mmol/L Phosphorus (2.3-4.7) mg/dL Magnesium (1.6-2.6) mg/dL Total Bilirubin (0.2-1.2) mg/dL Direct Bilirubin (0.0-0.5) mg/dL Indirect Bilirubin (0.0-1.2) mg/dL AST (5-34) Units/L ALT (0-55) Units/L Alkaline Phosphatase (38-126) Units/L Creatine Kinase (29-168) Units/L Troponin I (0-0.03) ng/mL Serum Total Protein (6.0-8.3) g/dL Albumin (3.5-5.0) g/dL Globulin (2.4-3.5) g/dL Albumin/Globulin Ratio (1.1-2.2) Triglycerides (< 150) mg/dL Lipase (8-78) Units/L TSH (0.350-4.840) mcIU/mL Free T4 (0.70-1.48) ng/dl Free T3 (1.71-3.71) pg/mL Urine Color (Yellow) Urine Clarity (Clear) Urine pH (5.0-8.0) pH Units Ur Specific [place] (1.010-1.025) Urine Protein (Neg-Trace) mg/dL Urine Glucose (UA) (Normal) mg/dL Urine Ketones (Negative) mg/dL Urine Blood (Negative) Urine Nitrite (Negative) Urine Bilirubin (Negative) Urine Urobilinogen (Normal) mg/dL Ur Leukocyte Esterase (Negative) Urine Microscopic RBC (0-3) per hpf Urine Microscopic WBC (0-3) per hpf Ur Squamous Epith Cells (None-Few) per lpf Urine Bacteria (None-Few) per hpf Hyaline Casts (None-Few) per lpf Chlamy pneumoniae PCR (Not Detect) Adenovirus (PCR) (Not Detect) B. pertussis DNA (PCR) (Not Detect) Coronavirus OC43 (PCR) (Not Detect) Coronavirus HKU1 (PCR) (Not Detect) Coronavirus 229E (PCR) (Not Detect) Coronavirus NL63 (PCR) (Not Detect) Human Metapneumovirus (Not Detect) Influenza A (H1) PCR (Not Detect) Influ A (H1N1/09) PCR (Not Detect) Influenza A (H3) PCR (Not Detect) Influenza A Untype (PCR) (Not Detect) Influenza Type B (PCR) (Not Detect) M.pneumoniae DNA (PCR) (Not Detect) Parainfluenza 1 (PCR) (Not Detect) Parainfluenza 2 (PCR) (Not Detect) Parainfluenza 3 (PCR) (Not Detect) Parainfluenza 4 (PCR) (Not Detect) RSV (PCR) (Not Detect) Entero/Rhino (PCR) (Not Detect) 11/15/16 11/15/16 11/15/16 Range/Units 05:19 05:19 11:54 WBC (4.3-11.1) K/mcL RBC (3.82-4.97) M/mcL Hgb (11.5-15.4) g/dL Hct (35.3-44.9) % MCV (83.0-100.0) fL MCH (28.0-33.3) pg MCHC (31.6-35.5) g/dL RDW (11.5-14.5) % Plt Count (140-400) K/mcL MPV (9.4-12.4) fL Immature Gran % (0-4) % Seg Neutrophils % % Band Neutrophils % (0-4) % Lymphocytes % % Monocytes % % Eosinophils % % Basophils % % Neutrophils # (1.6-8.9) K/mcL Lymphocytes # (0.6-4.6) K/mcL Monocytes # (0.0-1.3) K/mcL Eosinophils # (0.0-0.6) K/mcL Basophils # (0.0-0.2) K/mcL Nucleated RBCs/100 WBC (0) /100 WBC Hypersegmented Neuts (Not Present) Toxic Granulation (Not Present) Platelet Estimate (Normal) Large Platelets (Not Present) APTT (26.0-36.0) Seconds ABG pH (7.32-7.45) pH Units ABG pCO2 (35-45) mmHg ABG pO2 (85-104) mmHg ABG HCO3 (21-27) mEQ/L ABG Total CO2 (20-26) mEq/L ABG O2 Saturation (95-98) % ABG Base Excess (-2.0 to 3.0) mEq/L Respiration Rate Blood Gas Modality Inspired O2 % Tidal Volume cc PEEP cm H2O Sodium 139 140 (136-145) mEq/L Potassium 4.2 4.2 (3.5-4.5) mEq/L Chloride 96 L 96 L (98-109) mEq/L Carbon Dioxide 28 29 (19-29) mEq/L BUN 80 H 79 H (7-20) mg/dL Creatinine 1.96 H 1.97 H (0.57-1.11) mg/dL Est GFR ( Amer) 32 L 31 L (> 60) Est GFR (Non-Af Amer) 26 L 26 L (> 60) BUN/Creatinine Ratio 41 H 40 H (6-26) Glucose 170 H 170 H (70-99) mg/dL POC Glucose 164 H (58-89) Calculated Osmolality 316 H 318 H (280-300) Lactic Acid (0.5-2.2) mmol/L Calcium 9.8 9.8 (8.6-10.8) mg/dL Ionized Calcium 1.16 (1.15-1.35) mmol/L Phosphorus 5.4 H 5.4 H (2.3-4.7) mg/dL Magnesium 2.0 (1.6-2.6) mg/dL Total Bilirubin (0.2-1.2) mg/dL Direct Bilirubin (0.0-0.5) mg/dL Indirect Bilirubin (0.0-1.2) mg/dL AST (5-34) Units/L ALT (0-55) Units/L Alkaline Phosphatase (38-126) Units/L Creatine Kinase (29-168) Units/L Troponin I (0-0.03) ng/mL Serum Total Protein (6.0-8.3) g/dL Albumin 2.6 L (3.5-5.0) g/dL Globulin (2.4-3.5) g/dL Albumin/Globulin Ratio (1.1-2.2) Triglycerides (< 150) mg/dL Lipase (8-78) Units/L TSH (0.350-4.840) mcIU/mL Free T4 (0.70-1.48) ng/dl Free T3 (1.71-3.71) pg/mL Urine Color (Yellow) Urine Clarity (Clear) Urine pH (5.0-8.0) pH Units Ur Specific [place] (1.010-1.025) Urine Protein (Neg-Trace) mg/dL Urine Glucose (UA) (Normal) mg/dL Urine Ketones (Negative) mg/dL Urine Blood (Negative) Urine Nitrite (Negative) Urine Bilirubin (Negative) Urine Urobilinogen (Normal) mg/dL Ur Leukocyte Esterase (Negative) Urine Microscopic RBC (0-3) per hpf Urine Microscopic WBC (0-3) per hpf Ur Squamous Epith Cells (None-Few) per lpf Urine Bacteria (None-Few) per hpf Hyaline Casts (None-Few) per lpf Chlamy pneumoniae PCR (Not Detect) Adenovirus (PCR) (Not Detect) B. pertussis DNA (PCR) (Not Detect) Coronavirus OC43 (PCR) (Not Detect) Coronavirus HKU1 (PCR) (Not Detect) Coronavirus 229E (PCR) (Not Detect) Coronavirus NL63 (PCR) (Not Detect) Human Metapneumovirus (Not Detect) Influenza A (H1) PCR (Not Detect) Influ A (H1N1/09) PCR (Not Detect) Influenza A (H3) PCR (Not Detect) Influenza A Untype (PCR) (Not Detect) Influenza Type B (PCR) (Not Detect) M.pneumoniae DNA (PCR) (Not Detect) Parainfluenza 1 (PCR) (Not Detect) Parainfluenza 2 (PCR) (Not Detect) Parainfluenza 3 (PCR) (Not Detect) Parainfluenza 4 (PCR) (Not Detect) RSV (PCR) (Not Detect) Entero/Rhino (PCR) (Not Detect) 11/15/16 11/15/16 11/15/16 Range/Units 17:10 18:34 23:31 WBC (4.3-11.1) K/mcL RBC (3.82-4.97) M/mcL Hgb (11.5-15.4) g/dL Hct (35.3-44.9) % MCV (83.0-100.0) fL MCH (28.0-33.3) pg MCHC (31.6-35.5) g/dL RDW (11.5-14.5) % Plt Count (140-400) K/mcL MPV (9.4-12.4) fL Immature Gran % (0-4) % Seg Neutrophils % % Band Neutrophils % (0-4) % Lymphocytes % % Monocytes % % Eosinophils % % Basophils % % Neutrophils # (1.6-8.9) K/mcL Lymphocytes # (0.6-4.6) K/mcL Monocytes # (0.0-1.3) K/mcL Eosinophils # (0.0-0.6) K/mcL Basophils # (0.0-0.2) K/mcL Nucleated RBCs/100 WBC (0) /100 WBC Hypersegmented Neuts (Not Present) Toxic Granulation (Not Present) Platelet Estimate (Normal) Large Platelets (Not Present) APTT (26.0-36.0) Seconds ABG pH (7.32-7.45) pH Units ABG pCO2 (35-45) mmHg ABG pO2 (85-104) mmHg ABG HCO3 (21-27) mEQ/L ABG Total CO2 (20-26) mEq/L ABG O2 Saturation (95-98) % ABG Base Excess (-2.0 to 3.0) mEq/L Respiration Rate Blood Gas Modality Inspired O2 % Tidal Volume cc PEEP cm H2O Sodium 142 (136-145) mEq/L Potassium 4.0 (3.5-4.5) mEq/L Chloride 96 L (98-109) mEq/L Carbon Dioxide 30 H (19-29) mEq/L BUN 90 H (7-20) mg/dL Creatinine 2.05 H (0.57-1.11) mg/dL Est GFR ( Amer) 30 L (> 60) Est GFR (Non-Af Amer) 25 L (> 60) BUN/Creatinine Ratio 44 H (6-26) Glucose 193 H (70-99) mg/dL POC Glucose 173 H 166 H (58-89) Calculated Osmolality 327 H (280-300) Lactic Acid (0.5-2.2) mmol/L Calcium 9.4 (8.6-10.8) mg/dL Ionized Calcium (1.15-1.35) mmol/L Phosphorus 5.5 H (2.3-4.7) mg/dL Magnesium (1.6-2.6) mg/dL Total Bilirubin (0.2-1.2) mg/dL Direct Bilirubin (0.0-0.5) mg/dL Indirect Bilirubin (0.0-1.2) mg/dL AST (5-34) Units/L ALT (0-55) Units/L Alkaline Phosphatase (38-126) Units/L Creatine Kinase (29-168) Units/L Troponin I (0-0.03) ng/mL Serum Total Protein (6.0-8.3) g/dL Albumin 2.5 L (3.5-5.0) g/dL Globulin (2.4-3.5) g/dL Albumin/Globulin Ratio (1.1-2.2) Triglycerides (< 150) mg/dL Lipase (8-78) Units/L TSH (0.350-4.840) mcIU/mL Free T4 (0.70-1.48) ng/dl Free T3 (1.71-3.71) pg/mL Urine Color (Yellow) Urine Clarity (Clear) Urine pH (5.0-8.0) pH Units Ur Specific [place] (1.010-1.025) Urine Protein (Neg-Trace) mg/dL Urine Glucose (UA) (Normal) mg/dL Urine Ketones (Negative) mg/dL Urine Blood (Negative) Urine Nitrite (Negative) Urine Bilirubin (Negative) Urine Urobilinogen (Normal) mg/dL Ur Leukocyte Esterase (Negative) Urine Microscopic RBC (0-3) per hpf Urine Microscopic WBC (0-3) per hpf Ur Squamous Epith Cells (None-Few) per lpf Urine Bacteria (None-Few) per hpf Hyaline Casts (None-Few) per lpf Chlamy pneumoniae PCR (Not Detect) Adenovirus (PCR) (Not Detect) B. pertussis DNA (PCR) (Not Detect) Coronavirus OC43 (PCR) (Not Detect) Coronavirus HKU1 (PCR) (Not Detect) Coronavirus 229E (PCR) (Not Detect) Coronavirus NL63 (PCR) (Not Detect) Human Metapneumovirus (Not Detect) Influenza A (H1) PCR (Not Detect) Influ A (H1N1/09) PCR (Not Detect) Influenza A (H3) PCR (Not Detect) Influenza A Untype (PCR) (Not Detect) Influenza Type B (PCR) (Not Detect) M.pneumoniae DNA (PCR) (Not Detect) Parainfluenza 1 (PCR) (Not Detect) Parainfluenza 2 (PCR) (Not Detect) Parainfluenza 3 (PCR) (Not Detect) Parainfluenza 4 (PCR) (Not Detect) RSV (PCR) (Not Detect) Entero/Rhino (PCR) (Not Detect) 11/16/16 11/16/16 11/16/16 Range/Units 03:25 03:25 04:50 WBC 9.1 (4.3-11.1) K/mcL RBC 5.03 H (3.82-4.97) M/mcL Hgb 14.3 (11.5-15.4) g/dL Hct 44.5 (35.3-44.9) % MCV 88.5 (83.0-100.0) fL MCH 28.4 (28.0-33.3) pg MCHC 32.1 (31.6-35.5) g/dL RDW 15.9 H (11.5-14.5) % Plt Count 191 (140-400) K/mcL MPV 11.4 (9.4-12.4) fL Immature Gran % (0-4) % Seg Neutrophils % 90.0 % Band Neutrophils % 2.0 (0-4) % Lymphocytes % 2.0 % Monocytes % 6.0 % Eosinophils % % Basophils % % Neutrophils # 8.4 (1.6-8.9) K/mcL Lymphocytes # 0.2 L (0.6-4.6) K/mcL Monocytes # 0.6 (0.0-1.3) K/mcL Eosinophils # (0.0-0.6) K/mcL Basophils # (0.0-0.2) K/mcL Nucleated RBCs/100 WBC (0) /100 WBC Hypersegmented Neuts (Not Present) Toxic Granulation (Not Present) Platelet Estimate Normal (Normal) Large Platelets Present A (Not Present) APTT (26.0-36.0) Seconds ABG pH 7.33 (7.32-7.45) pH Units ABG pCO2 75 H* (35-45) mmHg ABG pO2 66 L (85-104) mmHg ABG HCO3 39.5 H (21-27) mEQ/L ABG Total CO2 41.8 H (20-26) mEq/L ABG O2 Saturation 91 L (95-98) % ABG Base Excess 9.9 H (-2.0 to 3.0) mEq/L Respiration Rate Blood Gas Modality VC+ Inspired O2 50 % Tidal Volume cc PEEP cm H2O Sodium 141 (136-145) mEq/L Potassium 4.2 (3.5-4.5) mEq/L Chloride 96 L (98-109) mEq/L Carbon Dioxide 30 H (19-29) mEq/L BUN 100 H (7-20) mg/dL Creatinine 2.39 H (0.57-1.11) mg/dL Est GFR ( Amer) 25 L (> 60) Est GFR (Non-Af Amer) 21 L (> 60) BUN/Creatinine Ratio 42 H (6-26) Glucose 190 H (70-99) mg/dL POC Glucose (58-89) Calculated Osmolality 328 H (280-300) Lactic Acid (0.5-2.2) mmol/L Calcium 9.3 (8.6-10.8) mg/dL Ionized Calcium 1.14 L (1.15-1.35) mmol/L Phosphorus 7.1 H (2.3-4.7) mg/dL Magnesium 1.8 (1.6-2.6) mg/dL Total Bilirubin (0.2-1.2) mg/dL Direct Bilirubin (0.0-0.5) mg/dL Indirect Bilirubin (0.0-1.2) mg/dL AST (5-34) Units/L ALT (0-55) Units/L Alkaline Phosphatase (38-126) Units/L Creatine Kinase (29-168) Units/L Troponin I (0-0.03) ng/mL Serum Total Protein (6.0-8.3) g/dL Albumin (3.5-5.0) g/dL Globulin (2.4-3.5) g/dL Albumin/Globulin Ratio (1.1-2.2) Triglycerides (< 150) mg/dL Lipase (8-78) Units/L TSH (0.350-4.840) mcIU/mL Free T4 (0.70-1.48) ng/dl Free T3 (1.71-3.71) pg/mL Urine Color (Yellow) Urine Clarity (Clear) Urine pH (5.0-8.0) pH Units Ur Specific [place] (1.010-1.025) Urine Protein (Neg-Trace) mg/dL Urine Glucose (UA) (Normal) mg/dL Urine Ketones (Negative) mg/dL Urine Blood (Negative) Urine Nitrite (Negative) Urine Bilirubin (Negative) Urine Urobilinogen (Normal) mg/dL Ur Leukocyte Esterase (Negative) Urine Microscopic RBC (0-3) per hpf Urine Microscopic WBC (0-3) per hpf Ur Squamous Epith Cells (None-Few) per lpf Urine Bacteria (None-Few) per hpf Hyaline Casts (None-Few) per lpf Chlamy pneumoniae PCR (Not Detect) Adenovirus (PCR) (Not Detect) B. pertussis DNA (PCR) (Not Detect) Coronavirus OC43 (PCR) (Not Detect) Coronavirus HKU1 (PCR) (Not Detect) Coronavirus 229E (PCR) (Not Detect) Coronavirus NL63 (PCR) (Not Detect) Human Metapneumovirus (Not Detect) Influenza A (H1) PCR (Not Detect) Influ A (H1N1/09) PCR (Not Detect) Influenza A (H3) PCR (Not Detect) Influenza A Untype (PCR) (Not Detect) Influenza Type B (PCR) (Not Detect) M.pneumoniae DNA (PCR) (Not Detect) Parainfluenza 1 (PCR) (Not Detect) Parainfluenza 2 (PCR) (Not Detect) Parainfluenza 3 (PCR) (Not Detect) Parainfluenza 4 (PCR) (Not Detect) RSV (PCR) (Not Detect) Entero/Rhino (PCR) (Not Detect) 11/16/16 11/16/16 11/16/16 Range/Units 04:52 11:17 17:11 WBC (4.3-11.1) K/mcL RBC (3.82-4.97) M/mcL Hgb (11.5-15.4) g/dL Hct (35.3-44.9) % MCV (83.0-100.0) fL MCH (28.0-33.3) pg MCHC (31.6-35.5) g/dL RDW (11.5-14.5) % Plt Count (140-400) K/mcL MPV (9.4-12.4) fL Immature Gran % (0-4) % Seg Neutrophils % % Band Neutrophils % (0-4) % Lymphocytes % % Monocytes % % Eosinophils % % Basophils % % Neutrophils # (1.6-8.9) K/mcL Lymphocytes # (0.6-4.6) K/mcL Monocytes # (0.0-1.3) K/mcL Eosinophils # (0.0-0.6) K/mcL Basophils # (0.0-0.2) K/mcL Nucleated RBCs/100 WBC (0) /100 WBC Hypersegmented Neuts (Not Present) Toxic Granulation (Not Present) Platelet Estimate (Normal) Large Platelets (Not Present) APTT (26.0-36.0) Seconds ABG pH (7.32-7.45) pH Units ABG pCO2 (35-45) mmHg ABG pO2 (85-104) mmHg ABG HCO3 (21-27) mEQ/L ABG Total CO2 (20-26) mEq/L ABG O2 Saturation (95-98) % ABG Base Excess (-2.0 to 3.0) mEq/L Respiration Rate Blood Gas Modality Inspired O2 % Tidal Volume cc PEEP cm H2O Sodium (136-145) mEq/L Potassium (3.5-4.5) mEq/L Chloride (98-109) mEq/L Carbon Dioxide (19-29) mEq/L BUN (7-20) mg/dL Creatinine (0.57-1.11) mg/dL Est GFR ( Amer) (> 60) Est GFR (Non-Af Amer) (> 60) BUN/Creatinine Ratio (6-26) Glucose (70-99) mg/dL POC Glucose 183 H 156 H 164 H (58-89) Calculated Osmolality (280-300) Lactic Acid (0.5-2.2) mmol/L Calcium (8.6-10.8) mg/dL Ionized Calcium (1.15-1.35) mmol/L Phosphorus (2.3-4.7) mg/dL Magnesium (1.6-2.6) mg/dL Total Bilirubin (0.2-1.2) mg/dL Direct Bilirubin (0.0-0.5) mg/dL Indirect Bilirubin (0.0-1.2) mg/dL AST (5-34) Units/L ALT (0-55) Units/L Alkaline Phosphatase (38-126) Units/L Creatine Kinase (29-168) Units/L Troponin I (0-0.03) ng/mL Serum Total Protein (6.0-8.3) g/dL Albumin (3.5-5.0) g/dL Globulin (2.4-3.5) g/dL Albumin/Globulin Ratio (1.1-2.2) Triglycerides (< 150) mg/dL Lipase (8-78) Units/L TSH (0.350-4.840) mcIU/mL Free T4 (0.70-1.48) ng/dl Free T3 (1.71-3.71) pg/mL Urine Color (Yellow) Urine Clarity (Clear) Urine pH (5.0-8.0) pH Units Ur Specific [place] (1.010-1.025) Urine Protein (Neg-Trace) mg/dL Urine Glucose (UA) (Normal) mg/dL Urine Ketones (Negative) mg/dL Urine Blood (Negative) Urine Nitrite (Negative) Urine Bilirubin (Negative) Urine Urobilinogen (Normal) mg/dL Ur Leukocyte Esterase (Negative) Urine Microscopic RBC (0-3) per hpf Urine Microscopic WBC (0-3) per hpf Ur Squamous Epith Cells (None-Few) per lpf Urine Bacteria (None-Few) per hpf Hyaline Casts (None-Few) per lpf Chlamy pneumoniae PCR (Not Detect) Adenovirus (PCR) (Not Detect) B. pertussis DNA (PCR) (Not Detect) Coronavirus OC43 (PCR) (Not Detect) Coronavirus HKU1 (PCR) (Not Detect) Coronavirus 229E (PCR) (Not Detect) Coronavirus NL63 (PCR) (Not Detect) Human Metapneumovirus (Not Detect) Influenza A (H1) PCR (Not Detect) Influ A (H1N1/09) PCR (Not Detect) Influenza A (H3) PCR (Not Detect) Influenza A Untype (PCR) (Not Detect) Influenza Type B (PCR) (Not Detect) M.pneumoniae DNA (PCR) (Not Detect) Parainfluenza 1 (PCR) (Not Detect) Parainfluenza 2 (PCR) (Not Detect) Parainfluenza 3 (PCR) (Not Detect) Parainfluenza 4 (PCR) (Not Detect) RSV (PCR) (Not Detect) Entero/Rhino (PCR) (Not Detect) 11/16/16 11/17/16 11/17/16 Range/Units 23:44 04:11 04:11 WBC 8.7 (4.3-11.1) K/mcL RBC 4.67 (3.82-4.97) M/mcL Hgb 13.0 (11.5-15.4) g/dL Hct 41.5 (35.3-44.9) % MCV 88.9 (83.0-100.0) fL MCH 27.8 L (28.0-33.3) pg MCHC 31.3 L (31.6-35.5) g/dL RDW 15.9 H (11.5-14.5) % Plt Count 166 (140-400) K/mcL MPV 11.7 (9.4-12.4) fL Immature Gran % 1.3 (0-4) % Seg Neutrophils % 84.0 % Band Neutrophils % (0-4) % Lymphocytes % 3.4 % Monocytes % 11.1 % Eosinophils % 0.1 % Basophils % 0.1 % Neutrophils # 7.3 (1.6-8.9) K/mcL Lymphocytes # 0.3 L (0.6-4.6) K/mcL Monocytes # 1.0 (0.0-1.3) K/mcL Eosinophils # 0.0 (0.0-0.6) K/mcL Basophils # 0.0 (0.0-0.2) K/mcL Nucleated RBCs/100 WBC (0) /100 WBC Hypersegmented Neuts (Not Present) Toxic Granulation (Not Present) Platelet Estimate (Normal) Large Platelets (Not Present) APTT (26.0-36.0) Seconds ABG pH (7.32-7.45) pH Units ABG pCO2 (35-45) mmHg ABG pO2 (85-104) mmHg ABG HCO3 (21-27) mEQ/L ABG Total CO2 (20-26) mEq/L ABG O2 Saturation (95-98) % ABG Base Excess (-2.0 to 3.0) mEq/L Respiration Rate Blood Gas Modality Inspired O2 % Tidal Volume cc PEEP cm H2O Sodium 140 (136-145) mEq/L Potassium 4.2 (3.5-4.5) mEq/L Chloride 97 L (98-109) mEq/L Carbon Dioxide 31 H (19-29) mEq/L BUN 116 H (7-20) mg/dL Creatinine 3.10 H (0.57-1.11) mg/dL Est GFR ( Amer) 19 L (> 60) Est GFR (Non-Af Amer) 15 L (> 60) BUN/Creatinine Ratio 37 H (6-26) Glucose 148 H (70-99) mg/dL POC Glucose 155 H (58-89) Calculated Osmolality 330 H (280-300) Lactic Acid (0.5-2.2) mmol/L Calcium 8.8 (8.6-10.8) mg/dL Ionized Calcium (1.15-1.35) mmol/L Phosphorus 7.7 H (2.3-4.7) mg/dL Magnesium 2.6 (1.6-2.6) mg/dL Total Bilirubin 0.6 (0.2-1.2) mg/dL Direct Bilirubin (0.0-0.5) mg/dL Indirect Bilirubin (0.0-1.2) mg/dL AST 11 (5-34) Units/L ALT 31 (0-55) Units/L Alkaline Phosphatase 46 (38-126) Units/L Creatine Kinase (29-168) Units/L Troponin I (0-0.03) ng/mL Serum Total Protein 5.3 L (6.0-8.3) g/dL Albumin 2.4 L (3.5-5.0) g/dL Globulin 2.9 (2.4-3.5) g/dL Albumin/Globulin Ratio 0.8 L (1.1-2.2) Triglycerides (< 150) mg/dL Lipase (8-78) Units/L TSH (0.350-4.840) mcIU/mL Free T4 (0.70-1.48) ng/dl Free T3 (1.71-3.71) pg/mL Urine Color (Yellow) Urine Clarity (Clear) Urine pH (5.0-8.0) pH Units Ur Specific [place] (1.010-1.025) Urine Protein (Neg-Trace) mg/dL Urine Glucose (UA) (Normal) mg/dL Urine Ketones (Negative) mg/dL Urine Blood (Negative) Urine Nitrite (Negative) Urine Bilirubin (Negative) Urine Urobilinogen (Normal) mg/dL Ur Leukocyte Esterase (Negative) Urine Microscopic RBC (0-3) per hpf Urine Microscopic WBC (0-3) per hpf Ur Squamous Epith Cells (None-Few) per lpf Urine Bacteria (None-Few) per hpf Hyaline Casts (None-Few) per lpf Chlamy pneumoniae PCR (Not Detect) Adenovirus (PCR) (Not Detect) B. pertussis DNA (PCR) (Not Detect) Coronavirus OC43 (PCR) (Not Detect) Coronavirus HKU1 (PCR) (Not Detect) Coronavirus 229E (PCR) (Not Detect) Coronavirus NL63 (PCR) (Not Detect) Human Metapneumovirus (Not Detect) Influenza A (H1) PCR (Not Detect) Influ A (H1N1/09) PCR (Not Detect) Influenza A (H3) PCR (Not Detect) Influenza A Untype (PCR) (Not Detect) Influenza Type B (PCR) (Not Detect) M.pneumoniae DNA (PCR) (Not Detect) Parainfluenza 1 (PCR) (Not Detect) Parainfluenza 2 (PCR) (Not Detect) Parainfluenza 3 (PCR) (Not Detect) Parainfluenza 4 (PCR) (Not Detect) RSV (PCR) (Not Detect) Entero/Rhino (PCR) (Not Detect) 11/17/16 11/17/16 11/17/16 Range/Units 04:17 04:30 11:54 WBC (4.3-11.1) K/mcL RBC (3.82-4.97) M/mcL Hgb (11.5-15.4) g/dL Hct (35.3-44.9) % MCV (83.0-100.0) fL MCH (28.0-33.3) pg MCHC (31.6-35.5) g/dL RDW (11.5-14.5) % Plt Count (140-400) K/mcL MPV (9.4-12.4) fL Immature Gran % (0-4) % Seg Neutrophils % % Band Neutrophils % (0-4) % Lymphocytes % % Monocytes % % Eosinophils % % Basophils % % Neutrophils # (1.6-8.9) K/mcL Lymphocytes # (0.6-4.6) K/mcL Monocytes # (0.0-1.3) K/mcL Eosinophils # (0.0-0.6) K/mcL Basophils # (0.0-0.2) K/mcL Nucleated RBCs/100 WBC (0) /100 WBC Hypersegmented Neuts (Not Present) Toxic Granulation (Not Present) Platelet Estimate (Normal) Large Platelets (Not Present) APTT (26.0-36.0) Seconds ABG pH 7.32 (7.32-7.45) pH Units ABG pCO2 72 H* (35-45) mmHg ABG pO2 82 L (85-104) mmHg ABG HCO3 37.1 H (21-27) mEQ/L ABG Total CO2 39.3 H (20-26) mEq/L ABG O2 Saturation 95 (95-98) % ABG Base Excess 8.3 H (-2.0 to 3.0) mEq/L Respiration Rate Blood Gas Modality VC Inspired O2 50 % Tidal Volume cc PEEP cm H2O Sodium (136-145) mEq/L Potassium (3.5-4.5) mEq/L Chloride (98-109) mEq/L Carbon Dioxide (19-29) mEq/L BUN (7-20) mg/dL Creatinine (0.57-1.11) mg/dL Est GFR ( Amer) (> 60) Est GFR (Non-Af Amer) (> 60) BUN/Creatinine Ratio (6-26) Glucose (70-99) mg/dL POC Glucose 131 H (58-89) Calculated Osmolality (280-300) Lactic Acid (0.5-2.2) mmol/L Calcium (8.6-10.8) mg/dL Ionized Calcium 1.11 L (1.15-1.35) mmol/L Phosphorus (2.3-4.7) mg/dL Magnesium (1.6-2.6) mg/dL Total Bilirubin (0.2-1.2) mg/dL Direct Bilirubin (0.0-0.5) mg/dL Indirect Bilirubin (0.0-1.2) mg/dL AST (5-34) Units/L ALT (0-55) Units/L Alkaline Phosphatase (38-126) Units/L Creatine Kinase (29-168) Units/L Troponin I (0-0.03) ng/mL Serum Total Protein (6.0-8.3) g/dL Albumin (3.5-5.0) g/dL Globulin (2.4-3.5) g/dL Albumin/Globulin Ratio (1.1-2.2) Triglycerides (< 150) mg/dL Lipase (8-78) Units/L TSH (0.350-4.840) mcIU/mL Free T4 (0.70-1.48) ng/dl Free T3 (1.71-3.71) pg/mL Urine Color (Yellow) Urine Clarity (Clear) Urine pH (5.0-8.0) pH Units Ur Specific [place] (1.010-1.025) Urine Protein (Neg-Trace) mg/dL Urine Glucose (UA) (Normal) mg/dL Urine Ketones (Negative) mg/dL Urine Blood (Negative) Urine Nitrite (Negative) Urine Bilirubin (Negative) Urine Urobilinogen (Normal) mg/dL Ur Leukocyte Esterase (Negative) Urine Microscopic RBC (0-3) per hpf Urine Microscopic WBC (0-3) per hpf Ur Squamous Epith Cells (None-Few) per lpf Urine Bacteria (None-Few) per hpf Hyaline Casts (None-Few) per lpf Chlamy pneumoniae PCR (Not Detect) Adenovirus (PCR) (Not Detect) B. pertussis DNA (PCR) (Not Detect) Coronavirus OC43 (PCR) (Not Detect) Coronavirus HKU1 (PCR) (Not Detect) Coronavirus 229E (PCR) (Not Detect) Coronavirus NL63 (PCR) (Not Detect) Human Metapneumovirus (Not Detect) Influenza A (H1) PCR (Not Detect) Influ A (H1N1/09) PCR (Not Detect) Influenza A (H3) PCR (Not Detect) Influenza A Untype (PCR) (Not Detect) Influenza Type B (PCR) (Not Detect) M.pneumoniae DNA (PCR) (Not Detect) Parainfluenza 1 (PCR) (Not Detect) Parainfluenza 2 (PCR) (Not Detect) Parainfluenza 3 (PCR) (Not Detect) Parainfluenza 4 (PCR) (Not Detect) RSV (PCR) (Not Detect) Entero/Rhino (PCR) (Not Detect) 11/17/16 11/17/16 11/18/16 Range/Units 17:29 23:39 03:57 WBC 8.5 (4.3-11.1) K/mcL RBC 4.62 (3.82-4.97) M/mcL Hgb 13.0 (11.5-15.4) g/dL Hct 41.1 (35.3-44.9) % MCV 89.0 (83.0-100.0) fL MCH 28.1 (28.0-33.3) pg MCHC 31.6 (31.6-35.5) g/dL RDW 15.9 H (11.5-14.5) % Plt Count 150 (140-400) K/mcL MPV 12.1 (9.4-12.4) fL Immature Gran % 0.7 (0-4) % Seg Neutrophils % 81.0 % Band Neutrophils % (0-4) % Lymphocytes % 8.0 % Monocytes % 9.4 % Eosinophils % 0.8 % Basophils % 0.1 % Neutrophils # 6.9 (1.6-8.9) K/mcL Lymphocytes # 0.7 (0.6-4.6) K/mcL Monocytes # 0.8 (0.0-1.3) K/mcL Eosinophils # 0.1 (0.0-0.6) K/mcL Basophils # 0.0 (0.0-0.2) K/mcL Nucleated RBCs/100 WBC (0) /100 WBC Hypersegmented Neuts (Not Present) Toxic Granulation (Not Present) Platelet Estimate (Normal) Large Platelets (Not Present) APTT (26.0-36.0) Seconds ABG pH (7.32-7.45) pH Units ABG pCO2 (35-45) mmHg ABG pO2 (85-104) mmHg ABG HCO3 (21-27) mEQ/L ABG Total CO2 (20-26) mEq/L ABG O2 Saturation (95-98) % ABG Base Excess (-2.0 to 3.0) mEq/L Respiration Rate Blood Gas Modality Inspired O2 % Tidal Volume cc PEEP cm H2O Sodium (136-145) mEq/L Potassium (3.5-4.5) mEq/L Chloride (98-109) mEq/L Carbon Dioxide (19-29) mEq/L BUN (7-20) mg/dL Creatinine (0.57-1.11) mg/dL Est GFR ( Amer) (> 60) Est GFR (Non-Af Amer) (> 60) BUN/Creatinine Ratio (6-26) Glucose (70-99) mg/dL POC Glucose 187 H 126 H (58-89) Calculated Osmolality (280-300) Lactic Acid (0.5-2.2) mmol/L Calcium (8.6-10.8) mg/dL Ionized Calcium (1.15-1.35) mmol/L Phosphorus (2.3-4.7) mg/dL Magnesium (1.6-2.6) mg/dL Total Bilirubin (0.2-1.2) mg/dL Direct Bilirubin (0.0-0.5) mg/dL Indirect Bilirubin (0.0-1.2) mg/dL AST (5-34) Units/L ALT (0-55) Units/L Alkaline Phosphatase (38-126) Units/L Creatine Kinase (29-168) Units/L Troponin I (0-0.03) ng/mL Serum Total Protein (6.0-8.3) g/dL Albumin (3.5-5.0) g/dL Globulin (2.4-3.5) g/dL Albumin/Globulin Ratio (1.1-2.2) Triglycerides (< 150) mg/dL Lipase (8-78) Units/L TSH (0.350-4.840) mcIU/mL Free T4 (0.70-1.48) ng/dl Free T3 (1.71-3.71) pg/mL Urine Color (Yellow) Urine Clarity (Clear) Urine pH (5.0-8.0) pH Units Ur Specific [place] (1.010-1.025) Urine Protein (Neg-Trace) mg/dL Urine Glucose (UA) (Normal) mg/dL Urine Ketones (Negative) mg/dL Urine Blood (Negative) Urine Nitrite (Negative) Urine Bilirubin (Negative) Urine Urobilinogen (Normal) mg/dL Ur Leukocyte Esterase (Negative) Urine Microscopic RBC (0-3) per hpf Urine Microscopic WBC (0-3) per hpf Ur Squamous Epith Cells (None-Few) per lpf Urine Bacteria (None-Few) per hpf Hyaline Casts (None-Few) per lpf Chlamy pneumoniae PCR (Not Detect) Adenovirus (PCR) (Not Detect) B. pertussis DNA (PCR) (Not Detect) Coronavirus OC43 (PCR) (Not Detect) Coronavirus HKU1 (PCR) (Not Detect) Coronavirus 229E (PCR) (Not Detect) Coronavirus NL63 (PCR) (Not Detect) Human Metapneumovirus (Not Detect) Influenza A (H1) PCR (Not Detect) Influ A (H1N1/09) PCR (Not Detect) Influenza A (H3) PCR (Not Detect) Influenza A Untype (PCR) (Not Detect) Influenza Type B (PCR) (Not Detect) M.pneumoniae DNA (PCR) (Not Detect) Parainfluenza 1 (PCR) (Not Detect) Parainfluenza 2 (PCR) (Not Detect) Parainfluenza 3 (PCR) (Not Detect) Parainfluenza 4 (PCR) (Not Detect) RSV (PCR) (Not Detect) Entero/Rhino (PCR) (Not Detect) 11/18/16 11/18/16 11/18/16 Range/Units 03:57 04:08 05:10 WBC (4.3-11.1) K/mcL RBC (3.82-4.97) M/mcL Hgb (11.5-15.4) g/dL Hct (35.3-44.9) % MCV (83.0-100.0) fL MCH (28.0-33.3) pg MCHC (31.6-35.5) g/dL RDW (11.5-14.5) % Plt Count (140-400) K/mcL MPV (9.4-12.4) fL Immature Gran % (0-4) % Seg Neutrophils % % Band Neutrophils % (0-4) % Lymphocytes % % Monocytes % % Eosinophils % % Basophils % % Neutrophils # (1.6-8.9) K/mcL Lymphocytes # (0.6-4.6) K/mcL Monocytes # (0.0-1.3) K/mcL Eosinophils # (0.0-0.6) K/mcL Basophils # (0.0-0.2) K/mcL Nucleated RBCs/100 WBC (0) /100 WBC Hypersegmented Neuts (Not Present) Toxic Granulation (Not Present) Platelet Estimate (Normal) Large Platelets (Not Present) APTT (26.0-36.0) Seconds ABG pH 7.28 L (7.32-7.45) pH Units ABG pCO2 83 H* (35-45) mmHg ABG pO2 77 L (85-104) mmHg ABG HCO3 39.0 H (21-27) mEQ/L ABG Total CO2 41.5 H (20-26) mEq/L ABG O2 Saturation 93 L (95-98) % ABG Base Excess 8.9 H (-2.0 to 3.0) mEq/L Respiration Rate Blood Gas Modality vct Inspired O2 40 % Tidal Volume cc PEEP cm H2O Sodium 143 (136-145) mEq/L Potassium 3.8 (3.5-4.5) mEq/L Chloride 98 (98-109) mEq/L Carbon Dioxide 30 H (19-29) mEq/L BUN 130 H (7-20) mg/dL Creatinine 3.03 H (0.57-1.11) mg/dL Est GFR ( Amer) 19 L (> 60) Est GFR (Non-Af Amer) 16 L (> 60) BUN/Creatinine Ratio 43 H (6-26) Glucose 128 H (70-99) mg/dL POC Glucose 118 H (58-89) Calculated Osmolality 340 H (280-300) Lactic Acid (0.5-2.2) mmol/L Calcium 8.4 L (8.6-10.8) mg/dL Ionized Calcium (1.15-1.35) mmol/L Phosphorus (2.3-4.7) mg/dL Magnesium (1.6-2.6) mg/dL Total Bilirubin 0.6 (0.2-1.2) mg/dL Direct Bilirubin (0.0-0.5) mg/dL Indirect Bilirubin (0.0-1.2) mg/dL AST 11 (5-34) Units/L ALT 31 (0-55) Units/L Alkaline Phosphatase 49 (38-126) Units/L Creatine Kinase (29-168) Units/L Troponin I (0-0.03) ng/mL Serum Total Protein 5.4 L (6.0-8.3) g/dL Albumin 2.5 L (3.5-5.0) g/dL Globulin 2.9 (2.4-3.5) g/dL Albumin/Globulin Ratio 0.9 L (1.1-2.2) Triglycerides (< 150) mg/dL Lipase (8-78) Units/L TSH (0.350-4.840) mcIU/mL Free T4 (0.70-1.48) ng/dl Free T3 (1.71-3.71) pg/mL Urine Color (Yellow) Urine Clarity (Clear) Urine pH (5.0-8.0) pH Units Ur Specific [place] (1.010-1.025) Urine Protein (Neg-Trace) mg/dL Urine Glucose (UA) (Normal) mg/dL Urine Ketones (Negative) mg/dL Urine Blood (Negative) Urine Nitrite (Negative) Urine Bilirubin (Negative) Urine Urobilinogen (Normal) mg/dL Ur Leukocyte Esterase (Negative) Urine Microscopic RBC (0-3) per hpf Urine Microscopic WBC (0-3) per hpf Ur Squamous Epith Cells (None-Few) per lpf Urine Bacteria (None-Few) per hpf Hyaline Casts (None-Few) per lpf Chlamy pneumoniae PCR (Not Detect) Adenovirus (PCR) (Not Detect) B. pertussis DNA (PCR) (Not Detect) Coronavirus OC43 (PCR) (Not Detect) Coronavirus HKU1 (PCR) (Not Detect) Coronavirus 229E (PCR) (Not Detect) Coronavirus NL63 (PCR) (Not Detect) Human Metapneumovirus (Not Detect) Influenza A (H1) PCR (Not Detect) Influ A (H1N1/09) PCR (Not Detect) Influenza A (H3) PCR (Not Detect) Influenza A Untype (PCR) (Not Detect) Influenza Type B (PCR) (Not Detect) M.pneumoniae DNA (PCR) (Not Detect) Parainfluenza 1 (PCR) (Not Detect) Parainfluenza 2 (PCR) (Not Detect) Parainfluenza 3 (PCR) (Not Detect) Parainfluenza 4 (PCR) (Not Detect) RSV (PCR) (Not Detect) Entero/Rhino (PCR) (Not Detect) 11/18/16 11/18/16 11/18/16 Range/Units 11:14 16:51 23:10 WBC (4.3-11.1) K/mcL RBC (3.82-4.97) M/mcL Hgb (11.5-15.4) g/dL Hct (35.3-44.9) % MCV (83.0-100.0) fL MCH (28.0-33.3) pg MCHC (31.6-35.5) g/dL RDW (11.5-14.5) % Plt Count (140-400) K/mcL MPV (9.4-12.4) fL Immature Gran % (0-4) % Seg Neutrophils % % Band Neutrophils % (0-4) % Lymphocytes % % Monocytes % % Eosinophils % % Basophils % % Neutrophils # (1.6-8.9) K/mcL Lymphocytes # (0.6-4.6) K/mcL Monocytes # (0.0-1.3) K/mcL Eosinophils # (0.0-0.6) K/mcL Basophils # (0.0-0.2) K/mcL Nucleated RBCs/100 WBC (0) /100 WBC Hypersegmented Neuts (Not Present) Toxic Granulation (Not Present) Platelet Estimate (Normal) Large Platelets (Not Present) APTT (26.0-36.0) Seconds ABG pH (7.32-7.45) pH Units ABG pCO2 (35-45) mmHg ABG pO2 (85-104) mmHg ABG HCO3 (21-27) mEQ/L ABG Total CO2 (20-26) mEq/L ABG O2 Saturation (95-98) % ABG Base Excess (-2.0 to 3.0) mEq/L Respiration Rate Blood Gas Modality Inspired O2 % Tidal Volume cc PEEP cm H2O Sodium (136-145) mEq/L Potassium (3.5-4.5) mEq/L Chloride (98-109) mEq/L Carbon Dioxide (19-29) mEq/L BUN (7-20) mg/dL Creatinine (0.57-1.11) mg/dL Est GFR ( Amer) (> 60) Est GFR (Non-Af Amer) (> 60) BUN/Creatinine Ratio (6-26) Glucose (70-99) mg/dL POC Glucose 120 H 248 H 175 H (58-89) Calculated Osmolality (280-300) Lactic Acid (0.5-2.2) mmol/L Calcium (8.6-10.8) mg/dL Ionized Calcium (1.15-1.35) mmol/L Phosphorus (2.3-4.7) mg/dL Magnesium (1.6-2.6) mg/dL Total Bilirubin (0.2-1.2) mg/dL Direct Bilirubin (0.0-0.5) mg/dL Indirect Bilirubin (0.0-1.2) mg/dL AST (5-34) Units/L ALT (0-55) Units/L Alkaline Phosphatase (38-126) Units/L Creatine Kinase (29-168) Units/L Troponin I (0-0.03) ng/mL Serum Total Protein (6.0-8.3) g/dL Albumin (3.5-5.0) g/dL Globulin (2.4-3.5) g/dL Albumin/Globulin Ratio (1.1-2.2) Triglycerides (< 150) mg/dL Lipase (8-78) Units/L TSH (0.350-4.840) mcIU/mL Free T4 (0.70-1.48) ng/dl Free T3 (1.71-3.71) pg/mL Urine Color (Yellow) Urine Clarity (Clear) Urine pH (5.0-8.0) pH Units Ur Specific [place] (1.010-1.025) Urine Protein (Neg-Trace) mg/dL Urine Glucose (UA) (Normal) mg/dL Urine Ketones (Negative) mg/dL Urine Blood (Negative) Urine Nitrite (Negative) Urine Bilirubin (Negative) Urine Urobilinogen (Normal) mg/dL Ur Leukocyte Esterase (Negative) Urine Microscopic RBC (0-3) per hpf Urine Microscopic WBC (0-3) per hpf Ur Squamous Epith Cells (None-Few) per lpf Urine Bacteria (None-Few) per hpf Hyaline Casts (None-Few) per lpf Chlamy pneumoniae PCR (Not Detect) Adenovirus (PCR) (Not Detect) B. pertussis DNA (PCR) (Not Detect) Coronavirus OC43 (PCR) (Not Detect) Coronavirus HKU1 (PCR) (Not Detect) Coronavirus 229E (PCR) (Not Detect) Coronavirus NL63 (PCR) (Not Detect) Human Metapneumovirus (Not Detect) Influenza A (H1) PCR (Not Detect) Influ A (H1N1/09) PCR (Not Detect) Influenza A (H3) PCR (Not Detect) Influenza A Untype (PCR) (Not Detect) Influenza Type B (PCR) (Not Detect) M.pneumoniae DNA (PCR) (Not Detect) Parainfluenza 1 (PCR) (Not Detect) Parainfluenza 2 (PCR) (Not Detect) Parainfluenza 3 (PCR) (Not Detect) Parainfluenza 4 (PCR) (Not Detect) RSV (PCR) (Not Detect) Entero/Rhino (PCR) (Not Detect) 11/19/16 11/19/16 11/19/16 Range/Units 05:34 05:55 05:55 WBC 9.3 (4.3-11.1) K/mcL RBC 4.85 (3.82-4.97) M/mcL Hgb 13.7 (11.5-15.4) g/dL Hct 41.9 (35.3-44.9) % MCV 86.4 (83.0-100.0) fL MCH 28.2 (28.0-33.3) pg MCHC 32.7 (31.6-35.5) g/dL RDW 15.3 H (11.5-14.5) % Plt Count 127 L (140-400) K/mcL MPV 11.8 (9.4-12.4) fL Immature Gran % 0.5 (0-4) % Seg Neutrophils % 80.3 % Band Neutrophils % (0-4) % Lymphocytes % 9.4 % Monocytes % 8.3 % Eosinophils % 1.4 % Basophils % 0.1 % Neutrophils # 7.4 (1.6-8.9) K/mcL Lymphocytes # 0.9 (0.6-4.6) K/mcL Monocytes # 0.8 (0.0-1.3) K/mcL Eosinophils # 0.1 (0.0-0.6) K/mcL Basophils # 0.0 (0.0-0.2) K/mcL Nucleated RBCs/100 WBC (0) /100 WBC Hypersegmented Neuts (Not Present) Toxic Granulation (Not Present) Platelet Estimate (Normal) Large Platelets (Not Present) APTT (26.0-36.0) Seconds ABG pH (7.32-7.45) pH Units ABG pCO2 (35-45) mmHg ABG pO2 (85-104) mmHg ABG HCO3 (21-27) mEQ/L ABG Total CO2 (20-26) mEq/L ABG O2 Saturation (95-98) % ABG Base Excess (-2.0 to 3.0) mEq/L Respiration Rate Blood Gas Modality Inspired O2 % Tidal Volume cc PEEP cm H2O Sodium 141 (136-145) mEq/L Potassium 3.3 L (3.5-4.5) mEq/L Chloride 100 (98-109) mEq/L Carbon Dioxide 30 H (19-29) mEq/L BUN 113 H (7-20) mg/dL Creatinine 2.16 H (0.57-1.11) mg/dL Est GFR ( Amer) 28 L (> 60) Est GFR (Non-Af Amer) 23 L (> 60) BUN/Creatinine Ratio 52 H (6-26) Glucose 121 H (70-99) mg/dL POC Glucose 105 H (58-89) Calculated Osmolality 329 H (280-300) Lactic Acid (0.5-2.2) mmol/L Calcium 8.5 L (8.6-10.8) mg/dL Ionized Calcium (1.15-1.35) mmol/L Phosphorus (2.3-4.7) mg/dL Magnesium (1.6-2.6) mg/dL Total Bilirubin 1.3 H D (0.2-1.2) mg/dL Direct Bilirubin (0.0-0.5) mg/dL Indirect Bilirubin (0.0-1.2) mg/dL AST 21 (5-34) Units/L ALT 40 (0-55) Units/L Alkaline Phosphatase 53 (38-126) Units/L Creatine Kinase (29-168) Units/L Troponin I (0-0.03) ng/mL Serum Total Protein 5.6 L (6.0-8.3) g/dL Albumin 2.6 L (3.5-5.0) g/dL Globulin 3.0 (2.4-3.5) g/dL Albumin/Globulin Ratio 0.9 L (1.1-2.2) Triglycerides (< 150) mg/dL Lipase (8-78) Units/L TSH (0.350-4.840) mcIU/mL Free T4 (0.70-1.48) ng/dl Free T3 (1.71-3.71) pg/mL Urine Color (Yellow) Urine Clarity (Clear) Urine pH (5.0-8.0) pH Units Ur Specific [place] (1.010-1.025) Urine Protein (Neg-Trace) mg/dL Urine Glucose (UA) (Normal) mg/dL Urine Ketones (Negative) mg/dL Urine Blood (Negative) Urine Nitrite (Negative) Urine Bilirubin (Negative) Urine Urobilinogen (Normal) mg/dL Ur Leukocyte Esterase (Negative) Urine Microscopic RBC (0-3) per hpf Urine Microscopic WBC (0-3) per hpf Ur Squamous Epith Cells (None-Few) per lpf Urine Bacteria (None-Few) per hpf Hyaline Casts (None-Few) per lpf Chlamy pneumoniae PCR (Not Detect) Adenovirus (PCR) (Not Detect) B. pertussis DNA (PCR) (Not Detect) Coronavirus OC43 (PCR) (Not Detect) Coronavirus HKU1 (PCR) (Not Detect) Coronavirus 229E (PCR) (Not Detect) Coronavirus NL63 (PCR) (Not Detect) Human Metapneumovirus (Not Detect) Influenza A (H1) PCR (Not Detect) Influ A (H1N1/09) PCR (Not Detect) Influenza A (H3) PCR (Not Detect) Influenza A Untype (PCR) (Not Detect) Influenza Type B (PCR) (Not Detect) M.pneumoniae DNA (PCR) (Not Detect) Parainfluenza 1 (PCR) (Not Detect) Parainfluenza 2 (PCR) (Not Detect) Parainfluenza 3 (PCR) (Not Detect) Parainfluenza 4 (PCR) (Not Detect) RSV (PCR) (Not Detect) Entero/Rhino (PCR) (Not Detect) 11/19/16 11/19/16 11/19/16 Range/Units 11:13 19:38 23:28 WBC (4.3-11.1) K/mcL RBC (3.82-4.97) M/mcL Hgb (11.5-15.4) g/dL Hct (35.3-44.9) % MCV (83.0-100.0) fL MCH (28.0-33.3) pg MCHC (31.6-35.5) g/dL RDW (11.5-14.5) % Plt Count (140-400) K/mcL MPV (9.4-12.4) fL Immature Gran % (0-4) % Seg Neutrophils % % Band Neutrophils % (0-4) % Lymphocytes % % Monocytes % % Eosinophils % % Basophils % % Neutrophils # (1.6-8.9) K/mcL Lymphocytes # (0.6-4.6) K/mcL Monocytes # (0.0-1.3) K/mcL Eosinophils # (0.0-0.6) K/mcL Basophils # (0.0-0.2) K/mcL Nucleated RBCs/100 WBC (0) /100 WBC Hypersegmented Neuts (Not Present) Toxic Granulation (Not Present) Platelet Estimate (Normal) Large Platelets (Not Present) APTT (26.0-36.0) Seconds ABG pH (7.32-7.45) pH Units ABG pCO2 (35-45) mmHg ABG pO2 (85-104) mmHg ABG HCO3 (21-27) mEQ/L ABG Total CO2 (20-26) mEq/L ABG O2 Saturation (95-98) % ABG Base Excess (-2.0 to 3.0) mEq/L Respiration Rate Blood Gas Modality Inspired O2 % Tidal Volume cc PEEP cm H2O Sodium (136-145) mEq/L Potassium (3.5-4.5) mEq/L Chloride (98-109) mEq/L Carbon Dioxide (19-29) mEq/L BUN (7-20) mg/dL Creatinine (0.57-1.11) mg/dL Est GFR ( Amer) (> 60) Est GFR (Non-Af Amer) (> 60) BUN/Creatinine Ratio (6-26) Glucose (70-99) mg/dL POC Glucose 236 H 208 H 118 H (58-89) Calculated Osmolality (280-300) Lactic Acid (0.5-2.2) mmol/L Calcium (8.6-10.8) mg/dL Ionized Calcium (1.15-1.35) mmol/L Phosphorus (2.3-4.7) mg/dL Magnesium (1.6-2.6) mg/dL Total Bilirubin (0.2-1.2) mg/dL Direct Bilirubin (0.0-0.5) mg/dL Indirect Bilirubin (0.0-1.2) mg/dL AST (5-34) Units/L ALT (0-55) Units/L Alkaline Phosphatase (38-126) Units/L Creatine Kinase (29-168) Units/L Troponin I (0-0.03) ng/mL Serum Total Protein (6.0-8.3) g/dL Albumin (3.5-5.0) g/dL Globulin (2.4-3.5) g/dL Albumin/Globulin Ratio (1.1-2.2) Triglycerides (< 150) mg/dL Lipase (8-78) Units/L TSH (0.350-4.840) mcIU/mL Free T4 (0.70-1.48) ng/dl Free T3 (1.71-3.71) pg/mL Urine Color (Yellow) Urine Clarity (Clear) Urine pH (5.0-8.0) pH Units Ur Specific [place] (1.010-1.025) Urine Protein (Neg-Trace) mg/dL Urine Glucose (UA) (Normal) mg/dL Urine Ketones (Negative) mg/dL Urine Blood (Negative) Urine Nitrite (Negative) Urine Bilirubin (Negative) Urine Urobilinogen (Normal) mg/dL Ur Leukocyte Esterase (Negative) Urine Microscopic RBC (0-3) per hpf Urine Microscopic WBC (0-3) per hpf Ur Squamous Epith Cells (None-Few) per lpf Urine Bacteria (None-Few) per hpf Hyaline Casts (None-Few) per lpf Chlamy pneumoniae PCR (Not Detect) Adenovirus (PCR) (Not Detect) B. pertussis DNA (PCR) (Not Detect) Coronavirus OC43 (PCR) (Not Detect) Coronavirus HKU1 (PCR) (Not Detect) Coronavirus 229E (PCR) (Not Detect) Coronavirus NL63 (PCR) (Not Detect) Human Metapneumovirus (Not Detect) Influenza A (H1) PCR (Not Detect) Influ A (H1N1/09) PCR (Not Detect) Influenza A (H3) PCR (Not Detect) Influenza A Untype (PCR) (Not Detect) Influenza Type B (PCR) (Not Detect) M.pneumoniae DNA (PCR) (Not Detect) Parainfluenza 1 (PCR) (Not Detect) Parainfluenza 2 (PCR) (Not Detect) Parainfluenza 3 (PCR) (Not Detect) Parainfluenza 4 (PCR) (Not Detect) RSV (PCR) (Not Detect) Entero/Rhino (PCR) (Not Detect) 11/20/16 11/20/16 11/20/16 Range/Units 04:13 04:13 08:36 WBC 7.2 (4.3-11.1) K/mcL RBC 4.77 (3.82-4.97) M/mcL Hgb 13.6 (11.5-15.4) g/dL Hct 41.7 (35.3-44.9) % MCV 87.4 (83.0-100.0) fL MCH 28.5 (28.0-33.3) pg MCHC 32.6 (31.6-35.5) g/dL RDW 15.4 H (11.5-14.5) % Plt Count 120 L (140-400) K/mcL MPV 12.3 (9.4-12.4) fL Immature Gran % 0.8 (0-4) % Seg Neutrophils % 77.6 % Band Neutrophils % (0-4) % Lymphocytes % 11.8 % Monocytes % 7.8 % Eosinophils % 1.9 % Basophils % 0.1 % Neutrophils # 5.6 (1.6-8.9) K/mcL Lymphocytes # 0.9 (0.6-4.6) K/mcL Monocytes # 0.6 (0.0-1.3) K/mcL Eosinophils # 0.1 (0.0-0.6) K/mcL Basophils # 0.0 (0.0-0.2) K/mcL Nucleated RBCs/100 WBC (0) /100 WBC Hypersegmented Neuts (Not Present) Toxic Granulation (Not Present) Platelet Estimate (Normal) Large Platelets (Not Present) APTT (26.0-36.0) Seconds ABG pH (7.32-7.45) pH Units ABG pCO2 (35-45) mmHg ABG pO2 (85-104) mmHg ABG HCO3 (21-27) mEQ/L ABG Total CO2 (20-26) mEq/L ABG O2 Saturation (95-98) % ABG Base Excess (-2.0 to 3.0) mEq/L Respiration Rate Blood Gas Modality Inspired O2 % Tidal Volume cc PEEP cm H2O Sodium 147 H (136-145) mEq/L Potassium 5.0 H D (3.5-4.5) mEq/L Chloride 111 H (98-109) mEq/L Carbon Dioxide 26 (19-29) mEq/L BUN 27 H D (7-20) mg/dL Creatinine 0.77 D (0.57-1.11) mg/dL Est GFR ( Amer) > 60 (> 60) Est GFR (Non-Af Amer) > 60 (> 60) BUN/Creatinine Ratio 35 H (6-26) Glucose 80 (70-99) mg/dL POC Glucose 196 H (58-89) Calculated Osmolality 308 H (280-300) Lactic Acid (0.5-2.2) mmol/L Calcium 8.9 (8.6-10.8) mg/dL Ionized Calcium 1.08 L (1.15-1.35) mmol/L Phosphorus 3.5 (2.3-4.7) mg/dL Magnesium 2.5 (1.6-2.6) mg/dL Total Bilirubin (0.2-1.2) mg/dL Direct Bilirubin (0.0-0.5) mg/dL Indirect Bilirubin (0.0-1.2) mg/dL AST (5-34) Units/L ALT (0-55) Units/L Alkaline Phosphatase (38-126) Units/L Creatine Kinase (29-168) Units/L Troponin I (0-0.03) ng/mL Serum Total Protein (6.0-8.3) g/dL Albumin (3.5-5.0) g/dL Globulin (2.4-3.5) g/dL Albumin/Globulin Ratio (1.1-2.2) Triglycerides (< 150) mg/dL Lipase (8-78) Units/L TSH (0.350-4.840) mcIU/mL Free T4 (0.70-1.48) ng/dl Free T3 (1.71-3.71) pg/mL Urine Color (Yellow) Urine Clarity (Clear) Urine pH (5.0-8.0) pH Units Ur Specific [place] (1.010-1.025) Urine Protein (Neg-Trace) mg/dL Urine Glucose (UA) (Normal) mg/dL Urine Ketones (Negative) mg/dL Urine Blood (Negative) Urine Nitrite (Negative) Urine Bilirubin (Negative) Urine Urobilinogen (Normal) mg/dL Ur Leukocyte Esterase (Negative) Urine Microscopic RBC (0-3) per hpf Urine Microscopic WBC (0-3) per hpf Ur Squamous Epith Cells (None-Few) per lpf Urine Bacteria (None-Few) per hpf Hyaline Casts (None-Few) per lpf Chlamy pneumoniae PCR (Not Detect) Adenovirus (PCR) (Not Detect) B. pertussis DNA (PCR) (Not Detect) Coronavirus OC43 (PCR) (Not Detect) Coronavirus HKU1 (PCR) (Not Detect) Coronavirus 229E (PCR) (Not Detect) Coronavirus NL63 (PCR) (Not Detect) Human Metapneumovirus (Not Detect) Influenza A (H1) PCR (Not Detect) Influ A (H1N1/09) PCR (Not Detect) Influenza A (H3) PCR (Not Detect) Influenza A Untype (PCR) (Not Detect) Influenza Type B (PCR) (Not Detect) M.pneumoniae DNA (PCR) (Not Detect) Parainfluenza 1 (PCR) (Not Detect) Parainfluenza 2 (PCR) (Not Detect) Parainfluenza 3 (PCR) (Not Detect) Parainfluenza 4 (PCR) (Not Detect) RSV (PCR) (Not Detect) Entero/Rhino (PCR) (Not Detect) 11/20/16 Range/Units 11:37 WBC (4.3-11.1) K/mcL RBC (3.82-4.97) M/mcL Hgb (11.5-15.4) g/dL Hct (35.3-44.9) % MCV (83.0-100.0) fL MCH (28.0-33.3) pg MCHC (31.6-35.5) g/dL RDW (11.5-14.5) % Plt Count (140-400) K/mcL MPV (9.4-12.4) fL Immature Gran % (0-4) % Seg Neutrophils % % Band Neutrophils % (0-4) % Lymphocytes % % Monocytes % % Eosinophils % % Basophils % % Neutrophils # (1.6-8.9) K/mcL Lymphocytes # (0.6-4.6) K/mcL Monocytes # (0.0-1.3) K/mcL Eosinophils # (0.0-0.6) K/mcL Basophils # (0.0-0.2) K/mcL Nucleated RBCs/100 WBC (0) /100 WBC Hypersegmented Neuts (Not Present) Toxic Granulation (Not Present) Platelet Estimate (Normal) Large Platelets (Not Present) APTT (26.0-36.0) Seconds ABG pH (7.32-7.45) pH Units ABG pCO2 (35-45) mmHg ABG pO2 (85-104) mmHg ABG HCO3 (21-27) mEQ/L ABG Total CO2 (20-26) mEq/L ABG O2 Saturation (95-98) % ABG Base Excess (-2.0 to 3.0) mEq/L Respiration Rate Blood Gas Modality Inspired O2 % Tidal Volume cc PEEP cm H2O Sodium (136-145) mEq/L Potassium (3.5-4.5) mEq/L Chloride (98-109) mEq/L Carbon Dioxide (19-29) mEq/L BUN (7-20) mg/dL Creatinine (0.57-1.11) mg/dL Est GFR ( Amer) (> 60) Est GFR (Non-Af Amer) (> 60) BUN/Creatinine Ratio (6-26) Glucose (70-99) mg/dL POC Glucose 187 H (58-89) Calculated Osmolality (280-300) Lactic Acid (0.5-2.2) mmol/L Calcium (8.6-10.8) mg/dL Ionized Calcium (1.15-1.35) mmol/L Phosphorus (2.3-4.7) mg/dL Magnesium (1.6-2.6) mg/dL Total Bilirubin (0.2-1.2) mg/dL Direct Bilirubin (0.0-0.5) mg/dL Indirect Bilirubin (0.0-1.2) mg/dL AST (5-34) Units/L ALT (0-55) Units/L Alkaline Phosphatase (38-126) Units/L Creatine Kinase (29-168) Units/L Troponin I (0-0.03) ng/mL Serum Total Protein (6.0-8.3) g/dL Albumin (3.5-5.0) g/dL Globulin (2.4-3.5) g/dL Albumin/Globulin Ratio (1.1-2.2) Triglycerides (< 150) mg/dL Lipase (8-78) Units/L TSH (0.350-4.840) mcIU/mL Free T4 (0.70-1.48) ng/dl Free T3 (1.71-3.71) pg/mL Urine Color (Yellow) Urine Clarity (Clear) Urine pH (5.0-8.0) pH Units Ur Specific [place] (1.010-1.025) Urine Protein (Neg-Trace) mg/dL Urine Glucose (UA) (Normal) mg/dL Urine Ketones (Negative) mg/dL Urine Blood (Negative) Urine Nitrite (Negative) Urine Bilirubin (Negative) Urine Urobilinogen (Normal) mg/dL Ur Leukocyte Esterase (Negative) Urine Microscopic RBC (0-3) per hpf Urine Microscopic WBC (0-3) per hpf Ur Squamous Epith Cells (None-Few) per lpf Urine Bacteria (None-Few) per hpf Hyaline Casts (None-Few) per lpf Chlamy pneumoniae PCR (Not Detect) Adenovirus (PCR) (Not Detect) B. pertussis DNA (PCR) (Not Detect) Coronavirus OC43 (PCR) (Not Detect) Coronavirus HKU1 (PCR) (Not Detect) Coronavirus 229E (PCR) (Not Detect) Coronavirus NL63 (PCR) (Not Detect) Human Metapneumovirus (Not Detect) Influenza A (H1) PCR (Not Detect) Influ A (H1N1/09) PCR (Not Detect) Influenza A (H3) PCR (Not Detect) Influenza A Untype (PCR) (Not Detect) Influenza Type B (PCR) (Not Detect) M.pneumoniae DNA (PCR) (Not Detect) Parainfluenza 1 (PCR) (Not Detect) Parainfluenza 2 (PCR) (Not Detect) Parainfluenza 3 (PCR) (Not Detect) Parainfluenza 4 (PCR) (Not Detect) RSV (PCR) (Not Detect) Entero/Rhino (PCR) (Not Detect)
[2016-11-20] MEDS ORDERED: *HR* OxyCODONE Immed Rel 5 MG TABLET PO STA (20:13)
[2016-11-20] MEDS ORDERED: Calcium Gluconate 1,000 MG in D5% in Water 100 ML IVPB ONE (20:15)
[2016-11-21] MEDS ORDERED: Acetaminophen 325 MG TABLET PO PRN (02:00)
[2016-11-21] MEDS: *HR* Heparin 5,000 UNIT/ML VIAL SQ SCH ×3 (03:26→18:07)
[2016-11-21] MEDS: Ipratropium/Albuterol Neb 3 ML IH SCH ×5 (04:46→20:40)
[2016-11-21 04:55] LABS: Calcium 8.8 mg/dL (8.6-10.8); Potassium 4.6 mEq/L (3.5-4.5)
[2016-11-21] MEDS: Insulin LISPRO 300 UNITS/3 ML VIAL SQ SCH ×4 (05:51→23:04)
[2016-11-21] MEDS: dilTIAZem HCl 60 MG TABLET PO SCH ×4 (05:54→23:03)
[2016-11-21] MEDS: Budesonide/Formoterol 160/4.5 MDI IH SCH ×2 (07:52→20:39)
[2016-11-21] MEDS ORDERED: Bisacodyl 10 MG RECTAL SUPPOSITORY RC SCH (09:00)
[2016-11-21] MEDS: Sennosides/Docusate Sodium TABLET PO SCH ×2 (09:30→20:33)
[2016-11-21] MEDS: predniSONE 20 MG TABLET PO SCH (09:30)
[2016-11-21] MEDS: Aspirin 81 MG TAB.CHEW GTUBE SCH (09:32)
[2016-11-21] MEDS: Nicotine 21 MG PATCH.TD24 TD SCH (09:36)
--- NOTE | 2016-11-21 10:07 | Palliative Progress Note ---
Date of Encounter: 11/21/16 Time of Encounter: 10:00 - Assessment and plan (1) Dyspnea Current Visit: No Status: Acute Assessment and plan: Tolerating NC at 5L. Continue donebs, symbicort, steroids. Qualifiers: Dyspnea type: shortness of breath Qualified Code(s): R06.02 - Shortness of breath (2) Anxiety Current Visit: No Status: Acute Assessment and plan: Klonopin as needed. None taken in past 24 hrs. Will monitor. (3) Constipation by delayed colonic transit Current Visit: No Status: Acute Assessment and plan: Last BM 11/20/16. Currently on colace and senna. (4) Goals of care, counseling/discussion Current Visit: No Status: Acute Assessment and plan: Patient is DNRCC - A, DNI. Plan to DC for rehab is dyspnea is controlled and she can tolerate. - Time Spent With Patient Total time spent is greater than 50% in coordination of care (as documented) at patient's floor/unit and/or counseling patient: 25 - 35 minutes - Subjective Interval history: Sitting up in bed. Alert. Denies pain or SOB. Currently tolerating NC O2. - Constitutional Vitals: Abnormal lab results RDW 15.4 % (11.5-14.5) H 11/20/16 04:13 Plt Count 120 K/mcL (140-400) L 11/20/16 04:13 Nucleated RBCs/100 WBC 0.2 /100 WBC (0) H 11/11/16 03:00 Hypersegmented Neuts Present (Not Present) A 11/14/16 03:15 Toxic Granulation Present (Not Present) A 11/14/16 03:15 Large Platelets Present (Not Present) A 11/16/16 03:25 Immature Plt Fraction 6.9 % (1.1-6.1) H 11/06/16 17:19 PT 13.9 Seconds (9.4-12.1) H 11/06/16 17:19 APTT 72.0 Seconds (26.0-36.0) H 11/10/16 02:00 D-Dimer 3921 ng/mLFEU (0-500) H 11/06/16 17:19 ABG pH 7.28 pH Units (7.32-7.45) L 11/18/16 04:08 ABG pCO2 83 mmHg (35-45) H* 11/18/16 04:08 ABG pO2 77 mmHg (85-104) L 11/18/16 04:08 ABG HCO3 39.0 mEQ/L (21-27) H 11/18/16 04:08 ABG Total CO2 41.5 mEq/L (20-26) H 11/18/16 04:08 ABG O2 Saturation 93 % (95-98) L 11/18/16 04:08 ABG Base Excess 8.9 mEq/L (-2.0 to 3.0) H 11/18/16 04:08 Potassium 4.6 mEq/L (3.5-4.5) H 11/21/16 04:29 BUN 70 mg/dL (7-20) H D 11/21/16 04:29 Creatinine 1.36 mg/dL (0.57-1.11) H D 11/21/16 04:29 Est GFR ( Amer) 48 (> 60) L 11/21/16 04:29 Est GFR (Non-Af Amer) 40 (> 60) L 11/21/16 04:29 BUN/Creatinine Ratio 51 (6-26) H 11/21/16 04:29 POC Glucose 92 (58-89) H 11/21/16 05:49 Calculated Osmolality 316 (280-300) H 11/21/16 04:29 Ionized Calcium 1.08 mmol/L (1.15-1.35) L 11/20/16 04:13 Total Bilirubin 1.3 mg/dL (0.2-1.2) H D 11/19/16 05:55 Creatine Kinase 253 Units/L (29-168) H 11/10/16 07:25 Troponin I 0.17 ng/mL (0-0.03) H* 11/13/16 04:16 B-Natriuretic Peptide 2717 pg/mL (0-100) H 11/06/16 17:19 Serum Total Protein 5.6 g/dL (6.0-8.3) L 11/19/16 05:55 Albumin 2.6 g/dL (3.5-5.0) L 11/19/16 05:55 Albumin/Globulin Ratio 0.9 (1.1-2.2) L 11/19/16 05:55 Triglycerides 153 mg/dL (< 150) H 11/10/16 07:25 Lipase 132 Units/L (8-78) H 11/10/16 07:25 - Head Head exam: Present: atraumatic, normal inspection, normocephalic - Eye Eye exam: Present: PERRL Pupils: Present: PERRL - ENT ENT exam: Present: mucous membranes moist (c/o sore throat from ET tube) - Neck Neck exam: Present: full ROM - Respiratory Respiratory exam: Present: decreased breath sounds - Expanded Respiratory Exam Location: decreased breath sounds: Left, Right, Lower - Cardiovascular Cardiovascular exam: Present: +S1, +S2 - Expanded Cardiovascular Exam Peripheral pulses: 1+: Femoral (L) PM, Femoral (R) PM, Posterior Tibialis (L), Posterior Tibialis (R), 2+: Carotid (L) PM, Carotid (R) PM, Radial (L), Radial ( R), Dorsalis Pedis (L) PM, Dorsalis Pedis (R) PM - GI/Abdominal GI/Abdominal exam: Present: normal bowel sounds - Additional comments: Flores cath draining clear yellow urine - Extremities Exam Extremities exam: Present: full ROM - Back Exam Back exam: Present: full ROM - Psychiatric Psychiatric exam: Present: normal affect - Skin Skin exam: Present: intact, warm Palliative Quality Palliative Quality: Screen for Code Status: Yes (Further screening awaiting family.), Screen for Goals of Care: Yes (Further screening awaiting family.), Screen for Pain: Yes, If Pain Regimen Started, Initiate Bowel Regimen: Yes, Screen for Nausea/Vomitting: Yes Code Status: 11/07/16 04:31 CODE [Resuscitation Status: Active] [RES] Routine Comment: Resuscitation Status: DNR-Comfort Care-Arrest CODE [Resuscitation Status: Active] [RES] Routine Comment: Resuscitation Status: Full Code CODE [Resuscitation Status: Active] [RES] Routine Comment: Resuscitation Status: [id number] - Labs CBC & Chem 7: 11/20/16 04:13 11/21/16 04:29 Labs: Laboratory Results - last 24 hr 11/20/16 11/20/16 11/20/16 08:36 11:37 17:02 Sodium Potassium Chloride Carbon Dioxide BUN Creatinine Est GFR ( Amer) Est GFR (Non-Af Amer) BUN/Creatinine Ratio Glucose POC Glucose 196 H 187 H 199 H Calculated Osmolality Calcium 11/20/16 11/21/16 11/21/16 23:49 04:29 05:49 Sodium 143 Potassium 4.6 H Chloride 105 Carbon Dioxide 29 BUN 70 H D Creatinine 1.36 H D Est GFR ( Amer) 48 L Est GFR (Non-Af Amer) 40 L BUN/Creatinine Ratio 51 H Glucose 95 POC Glucose 150 H 92 H Calculated Osmolality 316 H Calcium 8.8 - ABG Interpretation ABG results: ABG ABG pH 7.28 pH Units (7.32-7.45) L 11/18/16 04:08 ABG pCO2 83 mmHg (35-45) H* 11/18/16 04:08 ABG pO2 77 mmHg (85-104) L 11/18/16 04:08 ABG O2 Saturation 93 % (95-98) L 11/18/16 04:08 PT/INR, D-dimer PT 13.9 Seconds (9.4-12.1) H 11/06/16 17:19 D-Dimer 3921 ng/mLFEU (0-500) H 11/06/16 17:19 Consult Discharge Plan - Plan Referrals: Kay Palmer [Primary Care Provider] - (patient is going to [facility], no follow up appointment is needed)
--- NOTE | 2016-11-21 15:07 | Internal Med Progress Note ---
Date of Encounter: 11/21/16 Time of Encounter: 09:40 - Assessment and plan (1) Acute exacerbation of chronic obstructive pulmonary disease (COPD) Current Visit: Yes Status: Acute Assessment and plan: Continue current management. Taper steroids. Continue bronchodilator nebs. (2) Acute respiratory failure with hypercapnia Current Visit: Yes Status: Resolved (3) Anxiety Current Visit: No Status: Acute Assessment and plan: Improving. Continue clonazepam when necessary. (4) Atrial fibrillation Current Visit: Yes Status: Chronic Assessment and plan: Currently sinus rhythm and rate controlled Qualifiers: Atrial fibrillation type: paroxysmal Qualified Code(s): I48.0 - Paroxysmal atrial fibrillation (5) Elevated troponin Current Visit: Yes Status: Acute Assessment and plan: From respiratory failure. (6) Goals of care, counseling/discussion Current Visit: No Status: Acute (7) Physical deconditioning Current Visit: Yes Status: Acute Assessment and plan: Continue physical therapy. Placement to skilled rehabilitation. Refer to social media marketing specialist notes for further information (8) Cigarette smoker Current Visit: No Status: Chronic Assessment and plan: On nicotine patch (9) Invasive ductal carcinoma of breast Current Visit: No Status: Chronic Assessment and plan: follow-up outpatient with oncology Qualifiers: Laterality: right Qualified Code(s): C50.911 - Malignant neoplasm of unspecified site of right female breast (10) Hypertension Current Visit: Yes Status: Chronic Assessment and plan: Well-controlled Qualifiers: Hypertension type: essential hypertension Qualified Code(s): I10 - Essential (primary) hypertension (11) DVT prophylaxis Current Visit: Yes Status: Acute Assessment and plan: With subcutaneous heparin - Subjective Interval history: Feeling better today. Less anxious. Denies any new complaints at this time. Respiratory status is stable. No significant shortness of breath reported. No chest pain or palpitations. - Constitutional Vitals: Temp Pulse Resp BP Pulse Ox 98.0 F 97 16 137/77 94 L 11/21/16 11:28 11/21/16 12:01 11/21/16 11:50 11/21/16 11:28 11/21/16 11:50 General appearance: Present: cooperative, mild distress, A&O X 3, morbidly obese , answers questions appropriately - Respiratory Respiratory exam: Present: prolonged expiratory phase. Absent: accessory muscle use, rales, rhonchi, wheezes Additional comments: Improved breath sounds and air entry bilaterally. - Cardiovascular Cardiovascular exam: Present: RRR, +S1, +S2. Absent: diastolic murmur, gallop, rubs, systolic murmur - GI/Abdominal GI/Abdominal exam: Present: normal bowel sounds, soft, no peritoneal signs. Absent: distended, tenderness - Extremities Exam Extremities exam: Present: warm, radial pulses palpable and symetrical. Absent : calf tenderness, cyanotic, pedal edema - Neurological Exam Neurological exam: Present: oriented X3, no focal deficits. Absent: facial droop, speech deficit - Skin Skin exam: Present: dry, intact Internal Medicine: Result - Labs CBC & Chem 7: 11/20/16 04:13 11/21/16 04:29 Labs: BMP 11/21/16 04:29 Sodium 143 Potassium 4.6 H Chloride 105 Carbon Dioxide 29 BUN 70 H D Creatinine 1.36 H D Glucose 95 Calcium 8.8 - ABG Interpretation ABG results: ABG ABG pH 7.28 pH Units (7.32-7.45) L 11/18/16 04:08 ABG pCO2 83 mmHg (35-45) H* 11/18/16 04:08 ABG pO2 77 mmHg (85-104) L 11/18/16 04:08 ABG O2 Saturation 93 % (95-98) L 11/18/16 04:08 PT/INR, D-dimer PT 13.9 Seconds (9.4-12.1) H 11/06/16 17:19 D-Dimer 3921 ng/mLFEU (0-500) H 11/06/16 17:19 Consult Discharge Plan - Plan Referrals: Kay Palmer [Primary Care Provider] - (patient is going to [facility], no follow up appointment is needed) - Attending Attestation This document has been at least partially created by [employer] recognition technology by Dr. Anders. Errors in grammar, wording or other phrases may exist. If errors are found after the documentation is signed, they will be addressed individually in the addendum section of this document when appropriate. Medical Decision Making - MDM Narrative Medical decision making narrative: Moderate risk for complications - Lab Data Lab results reviewed: Yes I reviewed the patient's lab results. Result diagrams: 11/20/16 04:13 11/21/16 04:29 Lab Results 0111/06/16 11/06/16 Range/Units 21:13 21:25 23:09 WBC (4.3-11.1) K/mcL RBC (3.82-4.97) M/mcL Hgb (11.5-15.4) g/dL Hct (35.3-44.9) % MCV (83.0-100.0) fL MCH (28.0-33.3) pg MCHC (31.6-35.5) g/dL RDW (11.5-14.5) % Plt Count (140-400) K/mcL MPV (9.4-12.4) fL Immature Gran % (0-4) % Seg Neutrophils % % Band Neutrophils % (0-4) % Lymphocytes % % Monocytes % % Eosinophils % % Basophils % % Neutrophils # (1.6-8.9) K/mcL Lymphocytes # (0.6-4.6) K/mcL Monocytes # (0.0-1.3) K/mcL Eosinophils # (0.0-0.6) K/mcL Basophils # (0.0-0.2) K/mcL Nucleated RBCs/100 WBC (0) /100 WBC Hypersegmented Neuts (Not Present) Toxic Granulation (Not Present) Platelet Estimate (Normal) Large Platelets (Not Present) APTT (26.0-36.0) Seconds ABG pH 7.13 L* (7.32-7.45) pH Units ABG pCO2 111 H* (35-45) mmHg ABG pO2 94 (85-104) mmHg ABG HCO3 36.9 H (21-27) mEQ/L ABG Total CO2 40.3 H (20-26) mEq/L ABG O2 Saturation 94 L (95-98) % ABG Base Excess 2.7 (-2.0 to 3.0) mEq/L Respiration Rate Blood Gas Modality BIPAP Inspired O2 100 % Tidal Volume cc PEEP cm H2O Sodium (136-145) mEq/L Potassium (3.5-4.5) mEq/L Chloride (98-109) mEq/L Carbon Dioxide (19-29) mEq/L BUN (7-20) mg/dL Creatinine (0.57-1.11) mg/dL Est GFR ( Amer) (> 60) Est GFR (Non-Af Amer) (> 60) BUN/Creatinine Ratio (6-26) Glucose (70-99) mg/dL POC Glucose 118 H (58-89) Calculated Osmolality (280-300) Lactic Acid (0.5-2.2) mmol/L Calcium (8.6-10.8) mg/dL Ionized Calcium (1.15-1.35) mmol/L Phosphorus (2.3-4.7) mg/dL Magnesium (1.6-2.6) mg/dL Total Bilirubin (0.2-1.2) mg/dL Direct Bilirubin (0.0-0.5) mg/dL Indirect Bilirubin (0.0-1.2) mg/dL AST (5-34) Units/L ALT (0-55) Units/L Alkaline Phosphatase (38-126) Units/L Creatine Kinase (29-168) Units/L Troponin I 0.78 H* (0-0.03) ng/mL Serum Total Protein (6.0-8.3) g/dL Albumin (3.5-5.0) g/dL Globulin (2.4-3.5) g/dL Albumin/Globulin Ratio (1.1-2.2) Triglycerides (< 150) mg/dL Lipase (8-78) Units/L TSH (0.350-4.840) mcIU/mL Free T4 (0.70-1.48) ng/dl Free T3 (1.71-3.71) pg/mL Urine Color (Yellow) Urine Clarity (Clear) Urine pH (5.0-8.0) pH Units Ur Specific [place] (1.010-1.025) Urine Protein (Neg-Trace) mg/dL Urine Glucose (UA) (Normal) mg/dL Urine Ketones (Negative) mg/dL Urine Blood (Negative) Urine Nitrite (Negative) Urine Bilirubin (Negative) Urine Urobilinogen (Normal) mg/dL Ur Leukocyte Esterase (Negative) Urine Microscopic RBC (0-3) per hpf Urine Microscopic WBC (0-3) per hpf Ur Squamous Epith Cells (None-Few) per lpf Urine Bacteria (None-Few) per hpf Hyaline Casts (None-Few) per lpf Chlamy pneumoniae PCR (Not Detect) Adenovirus (PCR) (Not Detect) B. pertussis DNA (PCR) (Not Detect) Coronavirus OC43 (PCR) (Not Detect) Coronavirus HKU1 (PCR) (Not Detect) Coronavirus 229E (PCR) (Not Detect) Coronavirus NL63 (PCR) (Not Detect) Human Metapneumovirus (Not Detect) Influenza A (H1) PCR (Not Detect) Influ A (H1N1/09) PCR (Not Detect) Influenza A (H3) PCR (Not Detect) Influenza A Untype (PCR) (Not Detect) Influenza Type B (PCR) (Not Detect) M.pneumoniae DNA (PCR) (Not Detect) Parainfluenza 1 (PCR) (Not Detect) Parainfluenza 2 (PCR) (Not Detect) Parainfluenza 3 (PCR) (Not Detect) Parainfluenza 4 (PCR) (Not Detect) RSV (PCR) (Not Detect) Entero/Rhino (PCR) (Not Detect) 11/07/16 11/07/16 11/07/16 Range/Units 00:18 02:12 02:41 WBC (4.3-11.1) K/mcL RBC (3.82-4.97) M/mcL Hgb (11.5-15.4) g/dL Hct (35.3-44.9) % MCV (83.0-100.0) fL MCH (28.0-33.3) pg MCHC (31.6-35.5) g/dL RDW (11.5-14.5) % Plt Count (140-400) K/mcL MPV (9.4-12.4) fL Immature Gran % (0-4) % Seg Neutrophils % % Band Neutrophils % (0-4) % Lymphocytes % % Monocytes % % Eosinophils % % Basophils % % Neutrophils # (1.6-8.9) K/mcL Lymphocytes # (0.6-4.6) K/mcL Monocytes # (0.0-1.3) K/mcL Eosinophils # (0.0-0.6) K/mcL Basophils # (0.0-0.2) K/mcL Nucleated RBCs/100 WBC (0) /100 WBC Hypersegmented Neuts (Not Present) Toxic Granulation (Not Present) Platelet Estimate (Normal) Large Platelets (Not Present) APTT (26.0-36.0) Seconds ABG pH 7.46 H D (7.32-7.45) pH Units ABG pCO2 46 H D (35-45) mmHg ABG pO2 53 L (85-104) mmHg ABG HCO3 32.7 H (21-27) mEQ/L ABG Total CO2 34.1 H (20-26) mEq/L ABG O2 Saturation 89 L (95-98) % ABG Base Excess 7.6 H (-2.0 to 3.0) mEq/L Respiration Rate Blood Gas Modality ASSIST CONTROL Inspired O2 100 % Tidal Volume cc PEEP cm H2O Sodium (136-145) mEq/L Potassium (3.5-4.5) mEq/L Chloride (98-109) mEq/L Carbon Dioxide (19-29) mEq/L BUN (7-20) mg/dL Creatinine (0.57-1.11) mg/dL Est GFR ( Amer) (> 60) Est GFR (Non-Af Amer) (> 60) BUN/Creatinine Ratio (6-26) Glucose (70-99) mg/dL POC Glucose 142 H (58-89) Calculated Osmolality (280-300) Lactic Acid (0.5-2.2) mmol/L Calcium (8.6-10.8) mg/dL Ionized Calcium (1.15-1.35) mmol/L Phosphorus (2.3-4.7) mg/dL Magnesium (1.6-2.6) mg/dL Total Bilirubin (0.2-1.2) mg/dL Direct Bilirubin (0.0-0.5) mg/dL Indirect Bilirubin (0.0-1.2) mg/dL AST (5-34) Units/L ALT (0-55) Units/L Alkaline Phosphatase (38-126) Units/L Creatine Kinase (29-168) Units/L Troponin I (0-0.03) ng/mL Serum Total Protein (6.0-8.3) g/dL Albumin (3.5-5.0) g/dL Globulin (2.4-3.5) g/dL Albumin/Globulin Ratio (1.1-2.2) Triglycerides (< 150) mg/dL Lipase (8-78) Units/L TSH (0.350-4.840) mcIU/mL Free T4 (0.70-1.48) ng/dl Free T3 (1.71-3.71) pg/mL Urine Color Yellow (Yellow) Urine Clarity Clear (Clear) Urine pH 6.0 (5.0-8.0) pH Units Ur Specific [place] 1.012 (1.010-1.025) Urine Protein Trace (Neg-Trace) mg/dL Urine Glucose (UA) Normal (Normal) mg/dL Urine Ketones Negative (Negative) mg/dL Urine Blood Negative (Negative) Urine Nitrite Negative (Negative) Urine Bilirubin Negative (Negative) Urine Urobilinogen Normal (Normal) mg/dL Ur Leukocyte Esterase Negative (Negative) Urine Microscopic RBC 0-3 (0-3) per hpf Urine Microscopic WBC 0-3 (0-3) per hpf Ur Squamous Epith Cells Few (None-Few) per lpf Urine Bacteria None Seen (None-Few) per hpf Hyaline Casts None Seen (None-Few) per lpf Chlamy pneumoniae PCR (Not Detect) Adenovirus (PCR) (Not Detect) B. pertussis DNA (PCR) (Not Detect) Coronavirus OC43 (PCR) (Not Detect) Coronavirus HKU1 (PCR) (Not Detect) Coronavirus 229E (PCR) (Not Detect) Coronavirus NL63 (PCR) (Not Detect) Human Metapneumovirus (Not Detect) Influenza A (H1) PCR (Not Detect) Influ A (H1N1/09) PCR (Not Detect) Influenza A (H3) PCR (Not Detect) Influenza A Untype (PCR) (Not Detect) Influenza Type B (PCR) (Not Detect) M.pneumoniae DNA (PCR) (Not Detect) Parainfluenza 1 (PCR) (Not Detect) Parainfluenza 2 (PCR) (Not Detect) Parainfluenza 3 (PCR) (Not Detect) Parainfluenza 4 (PCR) (Not Detect) RSV (PCR) (Not Detect) Entero/Rhino (PCR) (Not Detect) 11/07/16 11/07/16 11/07/16 Range/Units 02:51 02:51 02:51 WBC 12.8 H (4.3-11.1) K/mcL RBC 5.10 H (3.82-4.97) M/mcL Hgb 14.4 (11.5-15.4) g/dL Hct 47.2 H (35.3-44.9) % MCV 92.5 (83.0-100.0) fL MCH 28.2 (28.0-33.3) pg MCHC 30.5 L (31.6-35.5) g/dL RDW 15.8 H (11.5-14.5) % Plt Count 189 (140-400) K/mcL MPV 10.9 (9.4-12.4) fL Immature Gran % 2.0 (0-4) % Seg Neutrophils % 93.3 % Band Neutrophils % (0-4) % Lymphocytes % 2.1 % Monocytes % 2.3 % Eosinophils % 0.0 % Basophils % 0.3 % Neutrophils # 12.0 H (1.6-8.9) K/mcL Lymphocytes # 0.3 L (0.6-4.6) K/mcL Monocytes # 0.3 (0.0-1.3) K/mcL Eosinophils # 0.0 (0.0-0.6) K/mcL Basophils # 0.0 (0.0-0.2) K/mcL Nucleated RBCs/100 WBC 2.1 H (0) /100 WBC Hypersegmented Neuts (Not Present) Toxic Granulation (Not Present) Platelet Estimate (Normal) Large Platelets (Not Present) APTT 65.2 H D (26.0-36.0) Seconds ABG pH (7.32-7.45) pH Units ABG pCO2 (35-45) mmHg ABG pO2 (85-104) mmHg ABG HCO3 (21-27) mEQ/L ABG Total CO2 (20-26) mEq/L ABG O2 Saturation (95-98) % ABG Base Excess (-2.0 to 3.0) mEq/L Respiration Rate Blood Gas Modality Inspired O2 % Tidal Volume cc PEEP cm H2O Sodium 135 L (136-145) mEq/L Potassium 5.4 H (3.5-4.5) mEq/L Chloride 99 (98-109) mEq/L Carbon Dioxide 21 (19-29) mEq/L BUN 54 H (7-20) mg/dL Creatinine 2.52 H (0.57-1.11) mg/dL Est GFR ( Amer) 24 L (> 60) Est GFR (Non-Af Amer) 19 L (> 60) BUN/Creatinine Ratio 21 (6-26) Glucose 139 H (70-99) mg/dL POC Glucose (58-89) Calculated Osmolality 297 (280-300) Lactic Acid (0.5-2.2) mmol/L Calcium 8.4 L (8.6-10.8) mg/dL Ionized Calcium (1.15-1.35) mmol/L Phosphorus 4.8 H (2.3-4.7) mg/dL Magnesium 2.3 (1.6-2.6) mg/dL Total Bilirubin (0.2-1.2) mg/dL Direct Bilirubin (0.0-0.5) mg/dL Indirect Bilirubin (0.0-1.2) mg/dL AST (5-34) Units/L ALT (0-55) Units/L Alkaline Phosphatase (38-126) Units/L Creatine Kinase (29-168) Units/L Troponin I (0-0.03) ng/mL Serum Total Protein (6.0-8.3) g/dL Albumin (3.5-5.0) g/dL Globulin (2.4-3.5) g/dL Albumin/Globulin Ratio (1.1-2.2) Triglycerides (< 150) mg/dL Lipase (8-78) Units/L TSH (0.350-4.840) mcIU/mL Free T4 (0.70-1.48) ng/dl Free T3 (1.71-3.71) pg/mL Urine Color (Yellow) Urine Clarity (Clear) Urine pH (5.0-8.0) pH Units Ur Specific [place] (1.010-1.025) Urine Protein (Neg-Trace) mg/dL Urine Glucose (UA) (Normal) mg/dL Urine Ketones (Negative) mg/dL Urine Blood (Negative) Urine Nitrite (Negative) Urine Bilirubin (Negative) Urine Urobilinogen (Normal) mg/dL Ur Leukocyte Esterase (Negative) Urine Microscopic RBC (0-3) per hpf Urine Microscopic WBC (0-3) per hpf Ur Squamous Epith Cells (None-Few) per lpf Urine Bacteria (None-Few) per hpf Hyaline Casts (None-Few) per lpf Chlamy pneumoniae PCR (Not Detect) Adenovirus (PCR) (Not Detect) B. pertussis DNA (PCR) (Not Detect) Coronavirus OC43 (PCR) (Not Detect) Coronavirus HKU1 (PCR) (Not Detect) Coronavirus 229E (PCR) (Not Detect) Coronavirus NL63 (PCR) (Not Detect) Human Metapneumovirus (Not Detect) Influenza A (H1) PCR (Not Detect) Influ A (H1N1/09) PCR (Not Detect) Influenza A (H3) PCR (Not Detect) Influenza A Untype (PCR) (Not Detect) Influenza Type B (PCR) (Not Detect) M.pneumoniae DNA (PCR) (Not Detect) Parainfluenza 1 (PCR) (Not Detect) Parainfluenza 2 (PCR) (Not Detect) Parainfluenza 3 (PCR) (Not Detect) Parainfluenza 4 (PCR) (Not Detect) RSV (PCR) (Not Detect) Entero/Rhino (PCR) (Not Detect) 11/07/16 11/07/16 11/07/16 Range/Units 05:33 07:52 09:08 WBC (4.3-11.1) K/mcL RBC (3.82-4.97) M/mcL Hgb (11.5-15.4) g/dL Hct (35.3-44.9) % MCV (83.0-100.0) fL MCH (28.0-33.3) pg MCHC (31.6-35.5) g/dL RDW (11.5-14.5) % Plt Count (140-400) K/mcL MPV (9.4-12.4) fL Immature Gran % (0-4) % Seg Neutrophils % % Band Neutrophils % (0-4) % Lymphocytes % % Monocytes % % Eosinophils % % Basophils % % Neutrophils # (1.6-8.9) K/mcL Lymphocytes # (0.6-4.6) K/mcL Monocytes # (0.0-1.3) K/mcL Eosinophils # (0.0-0.6) K/mcL Basophils # (0.0-0.2) K/mcL Nucleated RBCs/100 WBC (0) /100 WBC Hypersegmented Neuts (Not Present) Toxic Granulation (Not Present) Platelet Estimate (Normal) Large Platelets (Not Present) APTT 108.8 H D (26.0-36.0) Seconds ABG pH 7.59 H D (7.32-7.45) pH Units ABG pCO2 31 L (35-45) mmHg ABG pO2 67 L (85-104) mmHg ABG HCO3 29.7 H (21-27) mEQ/L ABG Total CO2 30.7 H (20-26) mEq/L ABG O2 Saturation 96 (95-98) % ABG Base Excess 8.3 H (-2.0 to 3.0) mEq/L Respiration Rate Blood Gas Modality ASSIST CONTROL Inspired O2 100 % Tidal Volume cc PEEP cm H2O Sodium (136-145) mEq/L Potassium (3.5-4.5) mEq/L Chloride (98-109) mEq/L Carbon Dioxide (19-29) mEq/L BUN (7-20) mg/dL Creatinine (0.57-1.11) mg/dL Est GFR ( Amer) (> 60) Est GFR (Non-Af Amer) (> 60) BUN/Creatinine Ratio (6-26) Glucose (70-99) mg/dL POC Glucose (58-89) Calculated Osmolality (280-300) Lactic Acid (0.5-2.2) mmol/L Calcium (8.6-10.8) mg/dL Ionized Calcium (1.15-1.35) mmol/L Phosphorus (2.3-4.7) mg/dL Magnesium (1.6-2.6) mg/dL Total Bilirubin (0.2-1.2) mg/dL Direct Bilirubin (0.0-0.5) mg/dL Indirect Bilirubin (0.0-1.2) mg/dL AST (5-34) Units/L ALT (0-55) Units/L Alkaline Phosphatase (38-126) Units/L Creatine Kinase (29-168) Units/L Troponin I 0.50 H* (0-0.03) ng/mL Serum Total Protein (6.0-8.3) g/dL Albumin (3.5-5.0) g/dL Globulin (2.4-3.5) g/dL Albumin/Globulin Ratio (1.1-2.2) Triglycerides (< 150) mg/dL Lipase (8-78) Units/L TSH (0.350-4.840) mcIU/mL Free T4 (0.70-1.48) ng/dl Free T3 (1.71-3.71) pg/mL Urine Color (Yellow) Urine Clarity (Clear) Urine pH (5.0-8.0) pH Units Ur Specific [place] (1.010-1.025) Urine Protein (Neg-Trace) mg/dL Urine Glucose (UA) (Normal) mg/dL Urine Ketones (Negative) mg/dL Urine Blood (Negative) Urine Nitrite (Negative) Urine Bilirubin (Negative) Urine Urobilinogen (Normal) mg/dL Ur Leukocyte Esterase (Negative) Urine Microscopic RBC (0-3) per hpf Urine Microscopic WBC (0-3) per hpf Ur Squamous Epith Cells (None-Few) per lpf Urine Bacteria (None-Few) per hpf Hyaline Casts (None-Few) per lpf Chlamy pneumoniae PCR (Not Detect) Adenovirus (PCR) (Not Detect) B. pertussis DNA (PCR) (Not Detect) Coronavirus OC43 (PCR) (Not Detect) Coronavirus HKU1 (PCR) (Not Detect) Coronavirus 229E (PCR) (Not Detect) Coronavirus NL63 (PCR) (Not Detect) Human Metapneumovirus (Not Detect) Influenza A (H1) PCR (Not Detect) Influ A (H1N1/09) PCR (Not Detect) Influenza A (H3) PCR (Not Detect) Influenza A Untype (PCR) (Not Detect) Influenza Type B (PCR) (Not Detect) M.pneumoniae DNA (PCR) (Not Detect) Parainfluenza 1 (PCR) (Not Detect) Parainfluenza 2 (PCR) (Not Detect) Parainfluenza 3 (PCR) (Not Detect) Parainfluenza 4 (PCR) (Not Detect) RSV (PCR) (Not Detect) Entero/Rhino (PCR) (Not Detect) 11/07/16 11/07/16 11/07/16 Range/Units 09:08 09:22 13:00 WBC (4.3-11.1) K/mcL RBC (3.82-4.97) M/mcL Hgb (11.5-15.4) g/dL Hct (35.3-44.9) % MCV (83.0-100.0) fL MCH (28.0-33.3) pg MCHC (31.6-35.5) g/dL RDW (11.5-14.5) % Plt Count (140-400) K/mcL MPV (9.4-12.4) fL Immature Gran % (0-4) % Seg Neutrophils % % Band Neutrophils % (0-4) % Lymphocytes % % Monocytes % % Eosinophils % % Basophils % % Neutrophils # (1.6-8.9) K/mcL Lymphocytes # (0.6-4.6) K/mcL Monocytes # (0.0-1.3) K/mcL Eosinophils # (0.0-0.6) K/mcL Basophils # (0.0-0.2) K/mcL Nucleated RBCs/100 WBC (0) /100 WBC Hypersegmented Neuts (Not Present) Toxic Granulation (Not Present) Platelet Estimate (Normal) Large Platelets (Not Present) APTT (26.0-36.0) Seconds ABG pH 7.45 D (7.32-7.45) pH Units ABG pCO2 44 (35-45) mmHg ABG pO2 79 L (85-104) mmHg ABG HCO3 30.6 H (21-27) mEQ/L ABG Total CO2 32.0 H (20-26) mEq/L ABG O2 Saturation 96 (95-98) % ABG Base Excess 5.6 H (-2.0 to 3.0) mEq/L Respiration Rate Blood Gas Modality VC+ Inspired O2 90 % Tidal Volume cc PEEP cm H2O Sodium (136-145) mEq/L Potassium (3.5-4.5) mEq/L Chloride (98-109) mEq/L Carbon Dioxide (19-29) mEq/L BUN (7-20) mg/dL Creatinine (0.57-1.11) mg/dL Est GFR ( Amer) (> 60) Est GFR (Non-Af Amer) (> 60) BUN/Creatinine Ratio (6-26) Glucose (70-99) mg/dL POC Glucose 135 H (58-89) Calculated Osmolality (280-300) Lactic Acid (0.5-2.2) mmol/L Calcium (8.6-10.8) mg/dL Ionized Calcium (1.15-1.35) mmol/L Phosphorus (2.3-4.7) mg/dL Magnesium (1.6-2.6) mg/dL Total Bilirubin (0.2-1.2) mg/dL Direct Bilirubin (0.0-0.5) mg/dL Indirect Bilirubin (0.0-1.2) mg/dL AST (5-34) Units/L ALT (0-55) Units/L Alkaline Phosphatase (38-126) Units/L Creatine Kinase (29-168) Units/L Troponin I (0-0.03) ng/mL Serum Total Protein (6.0-8.3) g/dL Albumin (3.5-5.0) g/dL Globulin (2.4-3.5) g/dL Albumin/Globulin Ratio (1.1-2.2) Triglycerides (< 150) mg/dL Lipase (8-78) Units/L TSH 0.583 (0.350-4.840) mcIU/mL Free T4 1.00 (0.70-1.48) ng/dl Free T3 1.73 (1.71-3.71) pg/mL Urine Color (Yellow) Urine Clarity (Clear) Urine pH (5.0-8.0) pH Units Ur Specific [place] (1.010-1.025) Urine Protein (Neg-Trace) mg/dL Urine Glucose (UA) (Normal) mg/dL Urine Ketones (Negative) mg/dL Urine Blood (Negative) Urine Nitrite (Negative) Urine Bilirubin (Negative) Urine Urobilinogen (Normal) mg/dL Ur Leukocyte Esterase (Negative) Urine Microscopic RBC (0-3) per hpf Urine Microscopic WBC (0-3) per hpf Ur Squamous Epith Cells (None-Few) per lpf Urine Bacteria (None-Few) per hpf Hyaline Casts (None-Few) per lpf Chlamy pneumoniae PCR (Not Detect) Adenovirus (PCR) (Not Detect) B. pertussis DNA (PCR) (Not Detect) Coronavirus OC43 (PCR) (Not Detect) Coronavirus HKU1 (PCR) (Not Detect) Coronavirus 229E (PCR) (Not Detect) Coronavirus NL63 (PCR) (Not Detect) Human Metapneumovirus (Not Detect) Influenza A (H1) PCR (Not Detect) Influ A (H1N1/09) PCR (Not Detect) Influenza A (H3) PCR (Not Detect) Influenza A Untype (PCR) (Not Detect) Influenza Type B (PCR) (Not Detect) M.pneumoniae DNA (PCR) (Not Detect) Parainfluenza 1 (PCR) (Not Detect) Parainfluenza 2 (PCR) (Not Detect) Parainfluenza 3 (PCR) (Not Detect) Parainfluenza 4 (PCR) (Not Detect) RSV (PCR) (Not Detect) Entero/Rhino (PCR) (Not Detect) 11/07/16 11/08/16 11/08/16 Range/Units 16:24 00:09 00:09 WBC 13.6 H (4.3-11.1) K/mcL RBC 5.00 H (3.82-4.97) M/mcL Hgb 14.3 (11.5-15.4) g/dL Hct 45.4 H (35.3-44.9) % MCV 90.8 (83.0-100.0) fL MCH 28.6 (28.0-33.3) pg MCHC 31.5 L (31.6-35.5) g/dL RDW 16.2 H (11.5-14.5) % Plt Count 198 (140-400) K/mcL MPV 11.1 (9.4-12.4) fL Immature Gran % 0.6 (0-4) % Seg Neutrophils % 93.3 % Band Neutrophils % (0-4) % Lymphocytes % 1.6 % Monocytes % 4.4 % Eosinophils % 0.0 % Basophils % 0.1 % Neutrophils # 12.7 H (1.6-8.9) K/mcL Lymphocytes # 0.2 L (0.6-4.6) K/mcL Monocytes # 0.6 (0.0-1.3) K/mcL Eosinophils # 0.0 (0.0-0.6) K/mcL Basophils # 0.0 (0.0-0.2) K/mcL Nucleated RBCs/100 WBC 0.3 H (0) /100 WBC Hypersegmented Neuts (Not Present) Toxic Granulation (Not Present) Platelet Estimate (Normal) Large Platelets (Not Present) APTT 82.8 H (26.0-36.0) Seconds ABG pH (7.32-7.45) pH Units ABG pCO2 (35-45) mmHg ABG pO2 (85-104) mmHg ABG HCO3 (21-27) mEQ/L ABG Total CO2 (20-26) mEq/L ABG O2 Saturation (95-98) % ABG Base Excess (-2.0 to 3.0) mEq/L Respiration Rate Blood Gas Modality Inspired O2 % Tidal Volume cc PEEP cm H2O Sodium 138 (136-145) mEq/L Potassium 4.2 D (3.5-4.5) mEq/L Chloride 96 L (98-109) mEq/L Carbon Dioxide 31 H (19-29) mEq/L BUN 50 H (7-20) mg/dL Creatinine 2.13 H (0.57-1.11) mg/dL Est GFR ( Amer) 29 L (> 60) Est GFR (Non-Af Amer) 24 L (> 60) BUN/Creatinine Ratio 23 (6-26) Glucose 202 H (70-99) mg/dL POC Glucose (58-89) Calculated Osmolality 305 H (280-300) Lactic Acid (0.5-2.2) mmol/L Calcium 8.6 (8.6-10.8) mg/dL Ionized Calcium 1.05 L (1.15-1.35) mmol/L Phosphorus 5.6 H (2.3-4.7) mg/dL Magnesium 2.0 (1.6-2.6) mg/dL Total Bilirubin 0.4 (0.2-1.2) mg/dL Direct Bilirubin (0.0-0.5) mg/dL Indirect Bilirubin (0.0-1.2) mg/dL AST 42 H (5-34) Units/L ALT 134 H (0-55) Units/L Alkaline Phosphatase 85 (38-126) Units/L Creatine Kinase (29-168) Units/L Troponin I (0-0.03) ng/mL Serum Total Protein 5.8 L (6.0-8.3) g/dL Albumin 2.8 L (3.5-5.0) g/dL Globulin 3.0 (2.4-3.5) g/dL Albumin/Globulin Ratio 0.9 L (1.1-2.2) Triglycerides (< 150) mg/dL Lipase (8-78) Units/L TSH (0.350-4.840) mcIU/mL Free T4 (0.70-1.48) ng/dl Free T3 (1.71-3.71) pg/mL Urine Color (Yellow) Urine Clarity (Clear) Urine pH (5.0-8.0) pH Units Ur Specific [place] (1.010-1.025) Urine Protein (Neg-Trace) mg/dL Urine Glucose (UA) (Normal) mg/dL Urine Ketones (Negative) mg/dL Urine Blood (Negative) Urine Nitrite (Negative) Urine Bilirubin (Negative) Urine Urobilinogen (Normal) mg/dL Ur Leukocyte Esterase (Negative) Urine Microscopic RBC (0-3) per hpf Urine Microscopic WBC (0-3) per hpf Ur Squamous Epith Cells (None-Few) per lpf Urine Bacteria (None-Few) per hpf Hyaline Casts (None-Few) per lpf Chlamy pneumoniae PCR (Not Detect) Adenovirus (PCR) (Not Detect) B. pertussis DNA (PCR) (Not Detect) Coronavirus OC43 (PCR) (Not Detect) Coronavirus HKU1 (PCR) (Not Detect) Coronavirus 229E (PCR) (Not Detect) Coronavirus NL63 (PCR) (Not Detect) Human Metapneumovirus (Not Detect) Influenza A (H1) PCR (Not Detect) Influ A (H1N1/09) PCR (Not Detect) Influenza A (H3) PCR (Not Detect) Influenza A Untype (PCR) (Not Detect) Influenza Type B (PCR) (Not Detect) M.pneumoniae DNA (PCR) (Not Detect) Parainfluenza 1 (PCR) (Not Detect) Parainfluenza 2 (PCR) (Not Detect) Parainfluenza 3 (PCR) (Not Detect) Parainfluenza 4 (PCR) (Not Detect) RSV (PCR) (Not Detect) Entero/Rhino (PCR) (Not Detect) 11/08/16 11/08/16 11/08/16 Range/Units 00:09 00:27 06:14 WBC (4.3-11.1) K/mcL RBC (3.82-4.97) M/mcL Hgb (11.5-15.4) g/dL Hct (35.3-44.9) % MCV (83.0-100.0) fL MCH (28.0-33.3) pg MCHC (31.6-35.5) g/dL RDW (11.5-14.5) % Plt Count (140-400) K/mcL MPV (9.4-12.4) fL Immature Gran % (0-4) % Seg Neutrophils % % Band Neutrophils % (0-4) % Lymphocytes % % Monocytes % % Eosinophils % % Basophils % % Neutrophils # (1.6-8.9) K/mcL Lymphocytes # (0.6-4.6) K/mcL Monocytes # (0.0-1.3) K/mcL Eosinophils # (0.0-0.6) K/mcL Basophils # (0.0-0.2) K/mcL Nucleated RBCs/100 WBC (0) /100 WBC Hypersegmented Neuts (Not Present) Toxic Granulation (Not Present) Platelet Estimate (Normal) Large Platelets (Not Present) APTT 105.5 H (26.0-36.0) Seconds ABG pH 7.44 (7.32-7.45) pH Units ABG pCO2 53 H (35-45) mmHg ABG pO2 56 L (85-104) mmHg ABG HCO3 36.0 H (21-27) mEQ/L ABG Total CO2 37.6 H (20-26) mEq/L ABG O2 Saturation 90 L (95-98) % ABG Base Excess 9.8 H (-2.0 to 3.0) mEq/L Respiration Rate Blood Gas Modality VC+ Inspired O2 80 % Tidal Volume cc PEEP cm H2O Sodium (136-145) mEq/L Potassium (3.5-4.5) mEq/L Chloride (98-109) mEq/L Carbon Dioxide (19-29) mEq/L BUN (7-20) mg/dL Creatinine (0.57-1.11) mg/dL Est GFR ( Amer) (> 60) Est GFR (Non-Af Amer) (> 60) BUN/Creatinine Ratio (6-26) Glucose (70-99) mg/dL POC Glucose 204 H (58-89) Calculated Osmolality (280-300) Lactic Acid (0.5-2.2) mmol/L Calcium (8.6-10.8) mg/dL Ionized Calcium (1.15-1.35) mmol/L Phosphorus (2.3-4.7) mg/dL Magnesium (1.6-2.6) mg/dL Total Bilirubin (0.2-1.2) mg/dL Direct Bilirubin (0.0-0.5) mg/dL Indirect Bilirubin (0.0-1.2) mg/dL AST (5-34) Units/L ALT (0-55) Units/L Alkaline Phosphatase (38-126) Units/L Creatine Kinase (29-168) Units/L Troponin I (0-0.03) ng/mL Serum Total Protein (6.0-8.3) g/dL Albumin (3.5-5.0) g/dL Globulin (2.4-3.5) g/dL Albumin/Globulin Ratio (1.1-2.2) Triglycerides (< 150) mg/dL Lipase (8-78) Units/L TSH (0.350-4.840) mcIU/mL Free T4 (0.70-1.48) ng/dl Free T3 (1.71-3.71) pg/mL Urine Color (Yellow) Urine Clarity (Clear) Urine pH (5.0-8.0) pH Units Ur Specific [place] (1.010-1.025) Urine Protein (Neg-Trace) mg/dL Urine Glucose (UA) (Normal) mg/dL Urine Ketones (Negative) mg/dL Urine Blood (Negative) Urine Nitrite (Negative) Urine Bilirubin (Negative) Urine Urobilinogen (Normal) mg/dL Ur Leukocyte Esterase (Negative) Urine Microscopic RBC (0-3) per hpf Urine Microscopic WBC (0-3) per hpf Ur Squamous Epith Cells (None-Few) per lpf Urine Bacteria (None-Few) per hpf Hyaline Casts (None-Few) per lpf Chlamy pneumoniae PCR (Not Detect) Adenovirus (PCR) (Not Detect) B. pertussis DNA (PCR) (Not Detect) Coronavirus OC43 (PCR) (Not Detect) Coronavirus HKU1 (PCR) (Not Detect) Coronavirus 229E (PCR) (Not Detect) Coronavirus NL63 (PCR) (Not Detect) Human Metapneumovirus (Not Detect) Influenza A (H1) PCR (Not Detect) Influ A (H1N1/09) PCR (Not Detect) Influenza A (H3) PCR (Not Detect) Influenza A Untype (PCR) (Not Detect) Influenza Type B (PCR) (Not Detect) M.pneumoniae DNA (PCR) (Not Detect) Parainfluenza 1 (PCR) (Not Detect) Parainfluenza 2 (PCR) (Not Detect) Parainfluenza 3 (PCR) (Not Detect) Parainfluenza 4 (PCR) (Not Detect) RSV (PCR) (Not Detect) Entero/Rhino (PCR) (Not Detect) 11/08/16 11/08/16 11/08/16 Range/Units 06:20 06:46 07:38 WBC (4.3-11.1) K/mcL RBC (3.82-4.97) M/mcL Hgb (11.5-15.4) g/dL Hct (35.3-44.9) % MCV (83.0-100.0) fL MCH (28.0-33.3) pg MCHC (31.6-35.5) g/dL RDW (11.5-14.5) % Plt Count (140-400) K/mcL MPV (9.4-12.4) fL Immature Gran % (0-4) % Seg Neutrophils % % Band Neutrophils % (0-4) % Lymphocytes % % Monocytes % % Eosinophils % % Basophils % % Neutrophils # (1.6-8.9) K/mcL Lymphocytes # (0.6-4.6) K/mcL Monocytes # (0.0-1.3) K/mcL Eosinophils # (0.0-0.6) K/mcL Basophils # (0.0-0.2) K/mcL Nucleated RBCs/100 WBC (0) /100 WBC Hypersegmented Neuts (Not Present) Toxic Granulation (Not Present) Platelet Estimate (Normal) Large Platelets (Not Present) APTT 77.8 H (26.0-36.0) Seconds ABG pH (7.32-7.45) pH Units ABG pCO2 (35-45) mmHg ABG pO2 (85-104) mmHg ABG HCO3 (21-27) mEQ/L ABG Total CO2 (20-26) mEq/L ABG O2 Saturation (95-98) % ABG Base Excess (-2.0 to 3.0) mEq/L Respiration Rate Blood Gas Modality Inspired O2 % Tidal Volume cc PEEP cm H2O Sodium (136-145) mEq/L Potassium (3.5-4.5) mEq/L Chloride (98-109) mEq/L Carbon Dioxide (19-29) mEq/L BUN (7-20) mg/dL Creatinine (0.57-1.11) mg/dL Est GFR ( Amer) (> 60) Est GFR (Non-Af Amer) (> 60) BUN/Creatinine Ratio (6-26) Glucose (70-99) mg/dL POC Glucose 204 H (58-89) Calculated Osmolality (280-300) Lactic Acid (0.5-2.2) mmol/L Calcium (8.6-10.8) mg/dL Ionized Calcium (1.15-1.35) mmol/L Phosphorus (2.3-4.7) mg/dL Magnesium (1.6-2.6) mg/dL Total Bilirubin 0.4 (0.2-1.2) mg/dL Direct Bilirubin 0.3 (0.0-0.5) mg/dL Indirect Bilirubin 0.1 (0.0-1.2) mg/dL AST 31 (5-34) Units/L ALT 121 H (0-55) Units/L Alkaline Phosphatase 83 (38-126) Units/L Creatine Kinase (29-168) Units/L Troponin I (0-0.03) ng/mL Serum Total Protein 5.9 L (6.0-8.3) g/dL Albumin 2.7 L (3.5-5.0) g/dL Globulin 3.2 (2.4-3.5) g/dL Albumin/Globulin Ratio 0.8 L (1.1-2.2) Triglycerides (< 150) mg/dL Lipase (8-78) Units/L TSH (0.350-4.840) mcIU/mL Free T4 (0.70-1.48) ng/dl Free T3 (1.71-3.71) pg/mL Urine Color (Yellow) Urine Clarity (Clear) Urine pH (5.0-8.0) pH Units Ur Specific [place] (1.010-1.025) Urine Protein (Neg-Trace) mg/dL Urine Glucose (UA) (Normal) mg/dL Urine Ketones (Negative) mg/dL Urine Blood (Negative) Urine Nitrite (Negative) Urine Bilirubin (Negative) Urine Urobilinogen (Normal) mg/dL Ur Leukocyte Esterase (Negative) Urine Microscopic RBC (0-3) per hpf Urine Microscopic WBC (0-3) per hpf Ur Squamous Epith Cells (None-Few) per lpf Urine Bacteria (None-Few) per hpf Hyaline Casts (None-Few) per lpf Chlamy pneumoniae PCR (Not Detect) Adenovirus (PCR) (Not Detect) B. pertussis DNA (PCR) (Not Detect) Coronavirus OC43 (PCR) (Not Detect) Coronavirus HKU1 (PCR) (Not Detect) Coronavirus 229E (PCR) (Not Detect) Coronavirus NL63 (PCR) (Not Detect) Human Metapneumovirus (Not Detect) Influenza A (H1) PCR (Not Detect) Influ A (H1N1/09) PCR (Not Detect) Influenza A (H3) PCR (Not Detect) Influenza A Untype (PCR) (Not Detect) Influenza Type B (PCR) (Not Detect) M.pneumoniae DNA (PCR) (Not Detect) Parainfluenza 1 (PCR) (Not Detect) Parainfluenza 2 (PCR) (Not Detect) Parainfluenza 3 (PCR) (Not Detect) Parainfluenza 4 (PCR) (Not Detect) RSV (PCR) (Not Detect) Entero/Rhino (PCR) (Not Detect) 11/08/16 11/08/16 11/08/16 Range/Units 11:20 13:25 15:57 WBC (4.3-11.1) K/mcL RBC (3.82-4.97) M/mcL Hgb (11.5-15.4) g/dL Hct (35.3-44.9) % MCV (83.0-100.0) fL MCH (28.0-33.3) pg MCHC (31.6-35.5) g/dL RDW (11.5-14.5) % Plt Count (140-400) K/mcL MPV (9.4-12.4) fL Immature Gran % (0-4) % Seg Neutrophils % % Band Neutrophils % (0-4) % Lymphocytes % % Monocytes % % Eosinophils % % Basophils % % Neutrophils # (1.6-8.9) K/mcL Lymphocytes # (0.6-4.6) K/mcL Monocytes # (0.0-1.3) K/mcL Eosinophils # (0.0-0.6) K/mcL Basophils # (0.0-0.2) K/mcL Nucleated RBCs/100 WBC (0) /100 WBC Hypersegmented Neuts (Not Present) Toxic Granulation (Not Present) Platelet Estimate (Normal) Large Platelets (Not Present) APTT 60.3 H (26.0-36.0) Seconds ABG pH (7.32-7.45) pH Units ABG pCO2 (35-45) mmHg ABG pO2 (85-104) mmHg ABG HCO3 (21-27) mEQ/L ABG Total CO2 (20-26) mEq/L ABG O2 Saturation (95-98) % ABG Base Excess (-2.0 to 3.0) mEq/L Respiration Rate Blood Gas Modality Inspired O2 % Tidal Volume cc PEEP cm H2O Sodium (136-145) mEq/L Potassium (3.5-4.5) mEq/L Chloride (98-109) mEq/L Carbon Dioxide (19-29) mEq/L BUN (7-20) mg/dL Creatinine (0.57-1.11) mg/dL Est GFR ( Amer) (> 60) Est GFR (Non-Af Amer) (> 60) BUN/Creatinine Ratio (6-26) Glucose (70-99) mg/dL POC Glucose 189 H 140 H (58-89) Calculated Osmolality (280-300) Lactic Acid (0.5-2.2) mmol/L Calcium (8.6-10.8) mg/dL Ionized Calcium (1.15-1.35) mmol/L Phosphorus (2.3-4.7) mg/dL Magnesium (1.6-2.6) mg/dL Total Bilirubin (0.2-1.2) mg/dL Direct Bilirubin (0.0-0.5) mg/dL Indirect Bilirubin (0.0-1.2) mg/dL AST (5-34) Units/L ALT (0-55) Units/L Alkaline Phosphatase (38-126) Units/L Creatine Kinase (29-168) Units/L Troponin I (0-0.03) ng/mL Serum Total Protein (6.0-8.3) g/dL Albumin (3.5-5.0) g/dL Globulin (2.4-3.5) g/dL Albumin/Globulin Ratio (1.1-2.2) Triglycerides (< 150) mg/dL Lipase (8-78) Units/L TSH (0.350-4.840) mcIU/mL Free T4 (0.70-1.48) ng/dl Free T3 (1.71-3.71) pg/mL Urine Color (Yellow) Urine Clarity (Clear) Urine pH (5.0-8.0) pH Units Ur Specific [place] (1.010-1.025) Urine Protein (Neg-Trace) mg/dL Urine Glucose (UA) (Normal) mg/dL Urine Ketones (Negative) mg/dL Urine Blood (Negative) Urine Nitrite (Negative) Urine Bilirubin (Negative) Urine Urobilinogen (Normal) mg/dL Ur Leukocyte Esterase (Negative) Urine Microscopic RBC (0-3) per hpf Urine Microscopic WBC (0-3) per hpf Ur Squamous Epith Cells (None-Few) per lpf Urine Bacteria (None-Few) per hpf Hyaline Casts (None-Few) per lpf Chlamy pneumoniae PCR (Not Detect) Adenovirus (PCR) (Not Detect) B. pertussis DNA (PCR) (Not Detect) Coronavirus OC43 (PCR) (Not Detect) Coronavirus HKU1 (PCR) (Not Detect) Coronavirus 229E (PCR) (Not Detect) Coronavirus NL63 (PCR) (Not Detect) Human Metapneumovirus (Not Detect) Influenza A (H1) PCR (Not Detect) Influ A (H1N1/09) PCR (Not Detect) Influenza A (H3) PCR (Not Detect) Influenza A Untype (PCR) (Not Detect) Influenza Type B (PCR) (Not Detect) M.pneumoniae DNA (PCR) (Not Detect) Parainfluenza 1 (PCR) (Not Detect) Parainfluenza 2 (PCR) (Not Detect) Parainfluenza 3 (PCR) (Not Detect) Parainfluenza 4 (PCR) (Not Detect) RSV (PCR) (Not Detect) Entero/Rhino (PCR) (Not Detect) 11/09/16 11/09/16 11/09/16 Range/Units 03:03 03:03 05:24 WBC 13.5 H (4.3-11.1) K/mcL RBC 4.83 (3.82-4.97) M/mcL Hgb 13.8 (11.5-15.4) g/dL Hct 43.9 (35.3-44.9) % MCV 90.9 (83.0-100.0) fL MCH 28.6 (28.0-33.3) pg MCHC 31.4 L (31.6-35.5) g/dL RDW 16.4 H (11.5-14.5) % Plt Count 197 (140-400) K/mcL MPV 11.0 (9.4-12.4) fL Immature Gran % 0.7 (0-4) % Seg Neutrophils % 91.2 % Band Neutrophils % (0-4) % Lymphocytes % 1.8 % Monocytes % 6.2 % Eosinophils % 0.0 % Basophils % 0.1 % Neutrophils # 12.3 H (1.6-8.9) K/mcL Lymphocytes # 0.3 L (0.6-4.6) K/mcL Monocytes # 0.8 (0.0-1.3) K/mcL Eosinophils # 0.0 (0.0-0.6) K/mcL Basophils # 0.0 (0.0-0.2) K/mcL Nucleated RBCs/100 WBC 0.2 H (0) /100 WBC Hypersegmented Neuts (Not Present) Toxic Granulation (Not Present) Platelet Estimate (Normal) Large Platelets (Not Present) APTT (26.0-36.0) Seconds ABG pH (7.32-7.45) pH Units ABG pCO2 (35-45) mmHg ABG pO2 (85-104) mmHg ABG HCO3 (21-27) mEQ/L ABG Total CO2 (20-26) mEq/L ABG O2 Saturation (95-98) % ABG Base Excess (-2.0 to 3.0) mEq/L Respiration Rate Blood Gas Modality Inspired O2 % Tidal Volume cc PEEP cm H2O Sodium 135 L (136-145) mEq/L Potassium 4.6 H (3.5-4.5) mEq/L Chloride 94 L (98-109) mEq/L Carbon Dioxide 29 (19-29) mEq/L BUN 52 H (7-20) mg/dL Creatinine 2.07 H (0.57-1.11) mg/dL Est GFR ( Amer) 30 L (> 60) Est GFR (Non-Af Amer) 24 L (> 60) BUN/Creatinine Ratio 25 (6-26) Glucose 150 H (70-99) mg/dL POC Glucose (58-89) Calculated Osmolality 297 (280-300) Lactic Acid (0.5-2.2) mmol/L Calcium 8.3 L (8.6-10.8) mg/dL Ionized Calcium 1.04 L (1.15-1.35) mmol/L Phosphorus 5.7 H (2.3-4.7) mg/dL Magnesium 2.1 (1.6-2.6) mg/dL Total Bilirubin 0.4 (0.2-1.2) mg/dL Direct Bilirubin (0.0-0.5) mg/dL Indirect Bilirubin (0.0-1.2) mg/dL AST 22 (5-34) Units/L ALT 91 H (0-55) Units/L Alkaline Phosphatase 72 (38-126) Units/L Creatine Kinase (29-168) Units/L Troponin I (0-0.03) ng/mL Serum Total Protein 5.6 L (6.0-8.3) g/dL Albumin 2.6 L (3.5-5.0) g/dL Globulin 3.0 (2.4-3.5) g/dL Albumin/Globulin Ratio 0.9 L (1.1-2.2) Triglycerides (< 150) mg/dL Lipase (8-78) Units/L TSH (0.350-4.840) mcIU/mL Free T4 (0.70-1.48) ng/dl Free T3 (1.71-3.71) pg/mL Urine Color (Yellow) Urine Clarity (Clear) Urine pH (5.0-8.0) pH Units Ur Specific [place] (1.010-1.025) Urine Protein (Neg-Trace) mg/dL Urine Glucose (UA) (Normal) mg/dL Urine Ketones (Negative) mg/dL Urine Blood (Negative) Urine Nitrite (Negative) Urine Bilirubin (Negative) Urine Urobilinogen (Normal) mg/dL Ur Leukocyte Esterase (Negative) Urine Microscopic RBC (0-3) per hpf Urine Microscopic WBC (0-3) per hpf Ur Squamous Epith Cells (None-Few) per lpf Urine Bacteria (None-Few) per hpf Hyaline Casts (None-Few) per lpf Chlamy pneumoniae PCR (Not Detect) Adenovirus (PCR) (Not Detect) B. pertussis DNA (PCR) (Not Detect) Coronavirus OC43 (PCR) (Not Detect) Coronavirus HKU1 (PCR) (Not Detect) Coronavirus 229E (PCR) (Not Detect) Coronavirus NL63 (PCR) (Not Detect) Human Metapneumovirus (Not Detect) Influenza A (H1) PCR (Not Detect) Influ A (H1N1/09) PCR (Not Detect) Influenza A (H3) PCR (Not Detect) Influenza A Untype (PCR) (Not Detect) Influenza Type B (PCR) (Not Detect) M.pneumoniae DNA (PCR) (Not Detect) Parainfluenza 1 (PCR) (Not Detect) Parainfluenza 2 (PCR) (Not Detect) Parainfluenza 3 (PCR) (Not Detect) Parainfluenza 4 (PCR) (Not Detect) RSV (PCR) (Not Detect) Entero/Rhino (PCR) (Not Detect) 11/09/16 11/09/16 11/09/16 Range/Units 06:02 06:37 11:39 WBC (4.3-11.1) K/mcL RBC (3.82-4.97) M/mcL Hgb (11.5-15.4) g/dL Hct (35.3-44.9) % MCV (83.0-100.0) fL MCH (28.0-33.3) pg MCHC (31.6-35.5) g/dL RDW (11.5-14.5) % Plt Count (140-400) K/mcL MPV (9.4-12.4) fL Immature Gran % (0-4) % Seg Neutrophils % % Band Neutrophils % (0-4) % Lymphocytes % % Monocytes % % Eosinophils % % Basophils % % Neutrophils # (1.6-8.9) K/mcL Lymphocytes # (0.6-4.6) K/mcL Monocytes # (0.0-1.3) K/mcL Eosinophils # (0.0-0.6) K/mcL Basophils # (0.0-0.2) K/mcL Nucleated RBCs/100 WBC (0) /100 WBC Hypersegmented Neuts (Not Present) Toxic Granulation (Not Present) Platelet Estimate (Normal) Large Platelets (Not Present) APTT (26.0-36.0) Seconds ABG pH 7.35 (7.32-7.45) pH Units ABG pCO2 70 H* (35-45) mmHg ABG pO2 58 L (85-104) mmHg ABG HCO3 38.6 H (21-27) mEQ/L ABG Total CO2 40.7 H (20-26) mEq/L ABG O2 Saturation 88 L (95-98) % ABG Base Excess 9.8 H (-2.0 to 3.0) mEq/L Respiration Rate Blood Gas Modality VCT Inspired O2 100 % Tidal Volume cc PEEP cm H2O Sodium (136-145) mEq/L Potassium (3.5-4.5) mEq/L Chloride (98-109) mEq/L Carbon Dioxide (19-29) mEq/L BUN (7-20) mg/dL Creatinine (0.57-1.11) mg/dL Est GFR ( Amer) (> 60) Est GFR (Non-Af Amer) (> 60) BUN/Creatinine Ratio (6-26) Glucose (70-99) mg/dL POC Glucose 169 H 193 H (58-89) Calculated Osmolality (280-300) Lactic Acid (0.5-2.2) mmol/L Calcium (8.6-10.8) mg/dL Ionized Calcium (1.15-1.35) mmol/L Phosphorus (2.3-4.7) mg/dL Magnesium (1.6-2.6) mg/dL Total Bilirubin (0.2-1.2) mg/dL Direct Bilirubin (0.0-0.5) mg/dL Indirect Bilirubin (0.0-1.2) mg/dL AST (5-34) Units/L ALT (0-55) Units/L Alkaline Phosphatase (38-126) Units/L Creatine Kinase (29-168) Units/L Troponin I (0-0.03) ng/mL Serum Total Protein (6.0-8.3) g/dL Albumin (3.5-5.0) g/dL Globulin (2.4-3.5) g/dL Albumin/Globulin Ratio (1.1-2.2) Triglycerides (< 150) mg/dL Lipase (8-78) Units/L TSH (0.350-4.840) mcIU/mL Free T4 (0.70-1.48) ng/dl Free T3 (1.71-3.71) pg/mL Urine Color (Yellow) Urine Clarity (Clear) Urine pH (5.0-8.0) pH Units Ur Specific [place] (1.010-1.025) Urine Protein (Neg-Trace) mg/dL Urine Glucose (UA) (Normal) mg/dL Urine Ketones (Negative) mg/dL Urine Blood (Negative) Urine Nitrite (Negative) Urine Bilirubin (Negative) Urine Urobilinogen (Normal) mg/dL Ur Leukocyte Esterase (Negative) Urine Microscopic RBC (0-3) per hpf Urine Microscopic WBC (0-3) per hpf Ur Squamous Epith Cells (None-Few) per lpf Urine Bacteria (None-Few) per hpf Hyaline Casts (None-Few) per lpf Chlamy pneumoniae PCR (Not Detect) Adenovirus (PCR) (Not Detect) B. pertussis DNA (PCR) (Not Detect) Coronavirus OC43 (PCR) (Not Detect) Coronavirus HKU1 (PCR) (Not Detect) Coronavirus 229E (PCR) (Not Detect) Coronavirus NL63 (PCR) (Not Detect) Human Metapneumovirus (Not Detect) Influenza A (H1) PCR (Not Detect) Influ A (H1N1/09) PCR (Not Detect) Influenza A (H3) PCR (Not Detect) Influenza A Untype (PCR) (Not Detect) Influenza Type B (PCR) (Not Detect) M.pneumoniae DNA (PCR) (Not Detect) Parainfluenza 1 (PCR) (Not Detect) Parainfluenza 2 (PCR) (Not Detect) Parainfluenza 3 (PCR) (Not Detect) Parainfluenza 4 (PCR) (Not Detect) RSV (PCR) (Not Detect) Entero/Rhino (PCR) (Not Detect) 11/09/16 11/09/16 11/09/16 Range/Units 11:40 13:17 13:20 WBC (4.3-11.1) K/mcL RBC (3.82-4.97) M/mcL Hgb (11.5-15.4) g/dL Hct (35.3-44.9) % MCV (83.0-100.0) fL MCH (28.0-33.3) pg MCHC (31.6-35.5) g/dL RDW (11.5-14.5) % Plt Count (140-400) K/mcL MPV (9.4-12.4) fL Immature Gran % (0-4) % Seg Neutrophils % % Band Neutrophils % (0-4) % Lymphocytes % % Monocytes % % Eosinophils % % Basophils % % Neutrophils # (1.6-8.9) K/mcL Lymphocytes # (0.6-4.6) K/mcL Monocytes # (0.0-1.3) K/mcL Eosinophils # (0.0-0.6) K/mcL Basophils # (0.0-0.2) K/mcL Nucleated RBCs/100 WBC (0) /100 WBC Hypersegmented Neuts (Not Present) Toxic Granulation (Not Present) Platelet Estimate (Normal) Large Platelets (Not Present) APTT 39.9 H (26.0-36.0) Seconds ABG pH 7.38 7.35 (7.32-7.45) pH Units ABG pCO2 61 H 66 H (35-45) mmHg ABG pO2 53 L 56 L (85-104) mmHg ABG HCO3 36.1 H 36.4 H (21-27) mEQ/L ABG Total CO2 38.0 H 38.4 H (20-26) mEq/L ABG O2 Saturation 86 L 87 L (95-98) % ABG Base Excess 8.2 H 7.8 H (-2.0 to 3.0) mEq/L Respiration Rate Blood Gas Modality VCT VC+ Inspired O2 100 100 % Tidal Volume cc PEEP cm H2O Sodium (136-145) mEq/L Potassium (3.5-4.5) mEq/L Chloride (98-109) mEq/L Carbon Dioxide (19-29) mEq/L BUN (7-20) mg/dL Creatinine (0.57-1.11) mg/dL Est GFR ( Amer) (> 60) Est GFR (Non-Af Amer) (> 60) BUN/Creatinine Ratio (6-26) Glucose (70-99) mg/dL POC Glucose (58-89) Calculated Osmolality (280-300) Lactic Acid (0.5-2.2) mmol/L Calcium (8.6-10.8) mg/dL Ionized Calcium (1.15-1.35) mmol/L Phosphorus (2.3-4.7) mg/dL Magnesium (1.6-2.6) mg/dL Total Bilirubin (0.2-1.2) mg/dL Direct Bilirubin (0.0-0.5) mg/dL Indirect Bilirubin (0.0-1.2) mg/dL AST (5-34) Units/L ALT (0-55) Units/L Alkaline Phosphatase (38-126) Units/L Creatine Kinase (29-168) Units/L Troponin I (0-0.03) ng/mL Serum Total Protein (6.0-8.3) g/dL Albumin (3.5-5.0) g/dL Globulin (2.4-3.5) g/dL Albumin/Globulin Ratio (1.1-2.2) Triglycerides (< 150) mg/dL Lipase (8-78) Units/L TSH (0.350-4.840) mcIU/mL Free T4 (0.70-1.48) ng/dl Free T3 (1.71-3.71) pg/mL Urine Color (Yellow) Urine Clarity (Clear) Urine pH (5.0-8.0) pH Units Ur Specific [place] (1.010-1.025) Urine Protein (Neg-Trace) mg/dL Urine Glucose (UA) (Normal) mg/dL Urine Ketones (Negative) mg/dL Urine Blood (Negative) Urine Nitrite (Negative) Urine Bilirubin (Negative) Urine Urobilinogen (Normal) mg/dL Ur Leukocyte Esterase (Negative) Urine Microscopic RBC (0-3) per hpf Urine Microscopic WBC (0-3) per hpf Ur Squamous Epith Cells (None-Few) per lpf Urine Bacteria (None-Few) per hpf Hyaline Casts (None-Few) per lpf Chlamy pneumoniae PCR (Not Detect) Adenovirus (PCR) (Not Detect) B. pertussis DNA (PCR) (Not Detect) Coronavirus OC43 (PCR) (Not Detect) Coronavirus HKU1 (PCR) (Not Detect) Coronavirus 229E (PCR) (Not Detect) Coronavirus NL63 (PCR) (Not Detect) Human Metapneumovirus (Not Detect) Influenza A (H1) PCR (Not Detect) Influ A (H1N1/09) PCR (Not Detect) Influenza A (H3) PCR (Not Detect) Influenza A Untype (PCR) (Not Detect) Influenza Type B (PCR) (Not Detect) M.pneumoniae DNA (PCR) (Not Detect) Parainfluenza 1 (PCR) (Not Detect) Parainfluenza 2 (PCR) (Not Detect) Parainfluenza 3 (PCR) (Not Detect) Parainfluenza 4 (PCR) (Not Detect) RSV (PCR) (Not Detect) Entero/Rhino (PCR) (Not Detect) 11/09/16 11/09/16 11/09/16 Range/Units 16:14 17:02 18:15 WBC (4.3-11.1) K/mcL RBC (3.82-4.97) M/mcL Hgb (11.5-15.4) g/dL Hct (35.3-44.9) % MCV (83.0-100.0) fL MCH (28.0-33.3) pg MCHC (31.6-35.5) g/dL RDW (11.5-14.5) % Plt Count (140-400) K/mcL MPV (9.4-12.4) fL Immature Gran % (0-4) % Seg Neutrophils % % Band Neutrophils % (0-4) % Lymphocytes % % Monocytes % % Eosinophils % % Basophils % % Neutrophils # (1.6-8.9) K/mcL Lymphocytes # (0.6-4.6) K/mcL Monocytes # (0.0-1.3) K/mcL Eosinophils # (0.0-0.6) K/mcL Basophils # (0.0-0.2) K/mcL Nucleated RBCs/100 WBC (0) /100 WBC Hypersegmented Neuts (Not Present) Toxic Granulation (Not Present) Platelet Estimate (Normal) Large Platelets (Not Present) APTT (26.0-36.0) Seconds ABG pH 7.43 7.40 (7.32-7.45) pH Units ABG pCO2 56 H 61 H (35-45) mmHg ABG pO2 54 L 55 L (85-104) mmHg ABG HCO3 37.2 H 37.8 H (21-27) mEQ/L ABG Total CO2 38.9 H 39.7 H (20-26) mEq/L ABG O2 Saturation 89 L 88 L (95-98) % ABG Base Excess 10.5 H 10.3 H (-2.0 to 3.0) mEq/L Respiration Rate Blood Gas Modality ASSIST CONTROL VC Inspired O2 100 100 % Tidal Volume cc PEEP 16 cm H2O Sodium (136-145) mEq/L Potassium (3.5-4.5) mEq/L Chloride (98-109) mEq/L Carbon Dioxide (19-29) mEq/L BUN (7-20) mg/dL Creatinine (0.57-1.11) mg/dL Est GFR ( Amer) (> 60) Est GFR (Non-Af Amer) (> 60) BUN/Creatinine Ratio (6-26) Glucose (70-99) mg/dL POC Glucose 171 H (58-89) Calculated Osmolality (280-300) Lactic Acid (0.5-2.2) mmol/L Calcium (8.6-10.8) mg/dL Ionized Calcium (1.15-1.35) mmol/L Phosphorus (2.3-4.7) mg/dL Magnesium (1.6-2.6) mg/dL Total Bilirubin (0.2-1.2) mg/dL Direct Bilirubin (0.0-0.5) mg/dL Indirect Bilirubin (0.0-1.2) mg/dL AST (5-34) Units/L ALT (0-55) Units/L Alkaline Phosphatase (38-126) Units/L Creatine Kinase (29-168) Units/L Troponin I (0-0.03) ng/mL Serum Total Protein (6.0-8.3) g/dL Albumin (3.5-5.0) g/dL Globulin (2.4-3.5) g/dL Albumin/Globulin Ratio (1.1-2.2) Triglycerides (< 150) mg/dL Lipase (8-78) Units/L TSH (0.350-4.840) mcIU/mL Free T4 (0.70-1.48) ng/dl Free T3 (1.71-3.71) pg/mL Urine Color (Yellow) Urine Clarity (Clear) Urine pH (5.0-8.0) pH Units Ur Specific [place] (1.010-1.025) Urine Protein (Neg-Trace) mg/dL Urine Glucose (UA) (Normal) mg/dL Urine Ketones (Negative) mg/dL Urine Blood (Negative) Urine Nitrite (Negative) Urine Bilirubin (Negative) Urine Urobilinogen (Normal) mg/dL Ur Leukocyte Esterase (Negative) Urine Microscopic RBC (0-3) per hpf Urine Microscopic WBC (0-3) per hpf Ur Squamous Epith Cells (None-Few) per lpf Urine Bacteria (None-Few) per hpf Hyaline Casts (None-Few) per lpf Chlamy pneumoniae PCR (Not Detect) Adenovirus (PCR) (Not Detect) B. pertussis DNA (PCR) (Not Detect) Coronavirus OC43 (PCR) (Not Detect) Coronavirus HKU1 (PCR) (Not Detect) Coronavirus 229E (PCR) (Not Detect) Coronavirus NL63 (PCR) (Not Detect) Human Metapneumovirus (Not Detect) Influenza A (H1) PCR (Not Detect) Influ A (H1N1/09) PCR (Not Detect) Influenza A (H3) PCR (Not Detect) Influenza A Untype (PCR) (Not Detect) Influenza Type B (PCR) (Not Detect) M.pneumoniae DNA (PCR) (Not Detect) Parainfluenza 1 (PCR) (Not Detect) Parainfluenza 2 (PCR) (Not Detect) Parainfluenza 3 (PCR) (Not Detect) Parainfluenza 4 (PCR) (Not Detect) RSV (PCR) (Not Detect) Entero/Rhino (PCR) (Not Detect) 11/09/16 11/09/16 11/10/16 Range/Units 20:00 23:50 02:00 WBC 13.8 H (4.3-11.1) K/mcL RBC 4.71 (3.82-4.97) M/mcL Hgb 13.3 (11.5-15.4) g/dL Hct 42.7 (35.3-44.9) % MCV 90.7 (83.0-100.0) fL MCH 28.2 (28.0-33.3) pg MCHC 31.1 L (31.6-35.5) g/dL RDW 16.3 H (11.5-14.5) % Plt Count 183 (140-400) K/mcL MPV 10.8 (9.4-12.4) fL Immature Gran % 0.5 (0-4) % Seg Neutrophils % 89.1 % Band Neutrophils % (0-4) % Lymphocytes % 1.6 % Monocytes % 8.7 % Eosinophils % 0.0 % Basophils % 0.1 % Neutrophils # 12.3 H (1.6-8.9) K/mcL Lymphocytes # 0.2 L (0.6-4.6) K/mcL Monocytes # 1.2 (0.0-1.3) K/mcL Eosinophils # 0.0 (0.0-0.6) K/mcL Basophils # 0.0 (0.0-0.2) K/mcL Nucleated RBCs/100 WBC 0.3 H (0) /100 WBC Hypersegmented Neuts (Not Present) Toxic Granulation (Not Present) Platelet Estimate (Normal) Large Platelets (Not Present) APTT 62.4 H D (26.0-36.0) Seconds ABG pH (7.32-7.45) pH Units ABG pCO2 (35-45) mmHg ABG pO2 (85-104) mmHg ABG HCO3 (21-27) mEQ/L ABG Total CO2 (20-26) mEq/L ABG O2 Saturation (95-98) % ABG Base Excess (-2.0 to 3.0) mEq/L Respiration Rate Blood Gas Modality Inspired O2 % Tidal Volume cc PEEP cm H2O Sodium (136-145) mEq/L Potassium (3.5-4.5) mEq/L Chloride (98-109) mEq/L Carbon Dioxide (19-29) mEq/L BUN (7-20) mg/dL Creatinine (0.57-1.11) mg/dL Est GFR ( Amer) (> 60) Est GFR (Non-Af Amer) (> 60) BUN/Creatinine Ratio (6-26) Glucose (70-99) mg/dL POC Glucose 195 H (58-89) Calculated Osmolality (280-300) Lactic Acid (0.5-2.2) mmol/L Calcium (8.6-10.8) mg/dL Ionized Calcium (1.15-1.35) mmol/L Phosphorus (2.3-4.7) mg/dL Magnesium (1.6-2.6) mg/dL Total Bilirubin (0.2-1.2) mg/dL Direct Bilirubin (0.0-0.5) mg/dL Indirect Bilirubin (0.0-1.2) mg/dL AST (5-34) Units/L ALT (0-55) Units/L Alkaline Phosphatase (38-126) Units/L Creatine Kinase (29-168) Units/L Troponin I (0-0.03) ng/mL Serum Total Protein (6.0-8.3) g/dL Albumin (3.5-5.0) g/dL Globulin (2.4-3.5) g/dL Albumin/Globulin Ratio (1.1-2.2) Triglycerides (< 150) mg/dL Lipase (8-78) Units/L TSH (0.350-4.840) mcIU/mL Free T4 (0.70-1.48) ng/dl Free T3 (1.71-3.71) pg/mL Urine Color (Yellow) Urine Clarity (Clear) Urine pH (5.0-8.0) pH Units Ur Specific [place] (1.010-1.025) Urine Protein (Neg-Trace) mg/dL Urine Glucose (UA) (Normal) mg/dL Urine Ketones (Negative) mg/dL Urine Blood (Negative) Urine Nitrite (Negative) Urine Bilirubin (Negative) Urine Urobilinogen (Normal) mg/dL Ur Leukocyte Esterase (Negative) Urine Microscopic RBC (0-3) per hpf Urine Microscopic WBC (0-3) per hpf Ur Squamous Epith Cells (None-Few) per lpf Urine Bacteria (None-Few) per hpf Hyaline Casts (None-Few) per lpf Chlamy pneumoniae PCR (Not Detect) Adenovirus (PCR) (Not Detect) B. pertussis DNA (PCR) (Not Detect) Coronavirus OC43 (PCR) (Not Detect) Coronavirus HKU1 (PCR) (Not Detect) Coronavirus 229E (PCR) (Not Detect) Coronavirus NL63 (PCR) (Not Detect) Human Metapneumovirus (Not Detect) Influenza A (H1) PCR (Not Detect) Influ A (H1N1/09) PCR (Not Detect) Influenza A (H3) PCR (Not Detect) Influenza A Untype (PCR) (Not Detect) Influenza Type B (PCR) (Not Detect) M.pneumoniae DNA (PCR) (Not Detect) Parainfluenza 1 (PCR) (Not Detect) Parainfluenza 2 (PCR) (Not Detect) Parainfluenza 3 (PCR) (Not Detect) Parainfluenza 4 (PCR) (Not Detect) RSV (PCR) (Not Detect) Entero/Rhino (PCR) (Not Detect) 01/08/1711/10/16 11/10/16 Range/Units 02:00 02:00 02:00 WBC (4.3-11.1) K/mcL RBC (3.82-4.97) M/mcL Hgb (11.5-15.4) g/dL Hct (35.3-44.9) % MCV (83.0-100.0) fL MCH (28.0-33.3) pg MCHC (31.6-35.5) g/dL RDW (11.5-14.5) % Plt Count (140-400) K/mcL MPV (9.4-12.4) fL Immature Gran % (0-4) % Seg Neutrophils % % Band Neutrophils % (0-4) % Lymphocytes % % Monocytes % % Eosinophils % % Basophils % % Neutrophils # (1.6-8.9) K/mcL Lymphocytes # (0.6-4.6) K/mcL Monocytes # (0.0-1.3) K/mcL Eosinophils # (0.0-0.6) K/mcL Basophils # (0.0-0.2) K/mcL Nucleated RBCs/100 WBC (0) /100 WBC Hypersegmented Neuts (Not Present) Toxic Granulation (Not Present) Platelet Estimate (Normal) Large Platelets (Not Present) APTT 72.0 H (26.0-36.0) Seconds ABG pH (7.32-7.45) pH Units ABG pCO2 (35-45) mmHg ABG pO2 (85-104) mmHg ABG HCO3 (21-27) mEQ/L ABG Total CO2 (20-26) mEq/L ABG O2 Saturation (95-98) % ABG Base Excess (-2.0 to 3.0) mEq/L Respiration Rate Blood Gas Modality Inspired O2 % Tidal Volume cc PEEP cm H2O Sodium 135 L (136-145) mEq/L Potassium 4.5 (3.5-4.5) mEq/L Chloride 94 L (98-109) mEq/L Carbon Dioxide 29 (19-29) mEq/L BUN 65 H (7-20) mg/dL Creatinine 2.31 H (0.57-1.11) mg/dL Est GFR ( Amer) 26 L (> 60) Est GFR (Non-Af Amer) 22 L (> 60) BUN/Creatinine Ratio 28 H (6-26) Glucose 174 H (70-99) mg/dL POC Glucose (58-89) Calculated Osmolality 303 H (280-300) Lactic Acid (0.5-2.2) mmol/L Calcium 8.1 L (8.6-10.8) mg/dL Ionized Calcium 1.02 L (1.15-1.35) mmol/L Phosphorus 7.8 H (2.3-4.7) mg/dL Magnesium 2.0 (1.6-2.6) mg/dL Total Bilirubin 0.3 (0.2-1.2) mg/dL Direct Bilirubin (0.0-0.5) mg/dL Indirect Bilirubin (0.0-1.2) mg/dL AST 17 (5-34) Units/L ALT 67 H (0-55) Units/L Alkaline Phosphatase 69 (38-126) Units/L Creatine Kinase (29-168) Units/L Troponin I (0-0.03) ng/mL Serum Total Protein 5.5 L (6.0-8.3) g/dL Albumin 2.4 L (3.5-5.0) g/dL Globulin 3.1 (2.4-3.5) g/dL Albumin/Globulin Ratio 0.8 L (1.1-2.2) Triglycerides (< 150) mg/dL Lipase (8-78) Units/L TSH (0.350-4.840) mcIU/mL Free T4 (0.70-1.48) ng/dl Free T3 (1.71-3.71) pg/mL Urine Color (Yellow) Urine Clarity (Clear) Urine pH (5.0-8.0) pH Units Ur Specific [place] (1.010-1.025) Urine Protein (Neg-Trace) mg/dL Urine Glucose (UA) (Normal) mg/dL Urine Ketones (Negative) mg/dL Urine Blood (Negative) Urine Nitrite (Negative) Urine Bilirubin (Negative) Urine Urobilinogen (Normal) mg/dL Ur Leukocyte Esterase (Negative) Urine Microscopic RBC (0-3) per hpf Urine Microscopic WBC (0-3) per hpf Ur Squamous Epith Cells (None-Few) per lpf Urine Bacteria (None-Few) per hpf Hyaline Casts (None-Few) per lpf Chlamy pneumoniae PCR (Not Detect) Adenovirus (PCR) (Not Detect) B. pertussis DNA (PCR) (Not Detect) Coronavirus OC43 (PCR) (Not Detect) Coronavirus HKU1 (PCR) (Not Detect) Coronavirus 229E (PCR) (Not Detect) Coronavirus NL63 (PCR) (Not Detect) Human Metapneumovirus (Not Detect) Influenza A (H1) PCR (Not Detect) Influ A (H1N1/09) PCR (Not Detect) Influenza A (H3) PCR (Not Detect) Influenza A Untype (PCR) (Not Detect) Influenza Type B (PCR) (Not Detect) M.pneumoniae DNA (PCR) (Not Detect) Parainfluenza 1 (PCR) (Not Detect) Parainfluenza 2 (PCR) (Not Detect) Parainfluenza 3 (PCR) (Not Detect) Parainfluenza 4 (PCR) (Not Detect) RSV (PCR) (Not Detect) Entero/Rhino (PCR) (Not Detect) 11/10/16 11/10/16 11/10/16 Range/Units 05:14 07:25 07:25 WBC (4.3-11.1) K/mcL RBC (3.82-4.97) M/mcL Hgb (11.5-15.4) g/dL Hct (35.3-44.9) % MCV (83.0-100.0) fL MCH (28.0-33.3) pg MCHC (31.6-35.5) g/dL RDW (11.5-14.5) % Plt Count (140-400) K/mcL MPV (9.4-12.4) fL Immature Gran % (0-4) % Seg Neutrophils % % Band Neutrophils % (0-4) % Lymphocytes % % Monocytes % % Eosinophils % % Basophils % % Neutrophils # (1.6-8.9) K/mcL Lymphocytes # (0.6-4.6) K/mcL Monocytes # (0.0-1.3) K/mcL Eosinophils # (0.0-0.6) K/mcL Basophils # (0.0-0.2) K/mcL Nucleated RBCs/100 WBC (0) /100 WBC Hypersegmented Neuts (Not Present) Toxic Granulation (Not Present) Platelet Estimate (Normal) Large Platelets (Not Present) APTT (26.0-36.0) Seconds ABG pH (7.32-7.45) pH Units ABG pCO2 (35-45) mmHg ABG pO2 (85-104) mmHg ABG HCO3 (21-27) mEQ/L ABG Total CO2 (20-26) mEq/L ABG O2 Saturation (95-98) % ABG Base Excess (-2.0 to 3.0) mEq/L Respiration Rate Blood Gas Modality Inspired O2 % Tidal Volume cc PEEP cm H2O Sodium (136-145) mEq/L Potassium (3.5-4.5) mEq/L Chloride (98-109) mEq/L Carbon Dioxide (19-29) mEq/L BUN (7-20) mg/dL Creatinine (0.57-1.11) mg/dL Est GFR ( Amer) (> 60) Est GFR (Non-Af Amer) (> 60) BUN/Creatinine Ratio (6-26) Glucose (70-99) mg/dL POC Glucose 161 H (58-89) Calculated Osmolality (280-300) Lactic Acid 1.1 (0.5-2.2) mmol/L Calcium (8.6-10.8) mg/dL Ionized Calcium (1.15-1.35) mmol/L Phosphorus (2.3-4.7) mg/dL Magnesium (1.6-2.6) mg/dL Total Bilirubin (0.2-1.2) mg/dL Direct Bilirubin (0.0-0.5) mg/dL Indirect Bilirubin (0.0-1.2) mg/dL AST (5-34) Units/L ALT (0-55) Units/L Alkaline Phosphatase (38-126) Units/L Creatine Kinase 253 H (29-168) Units/L Troponin I (0-0.03) ng/mL Serum Total Protein (6.0-8.3) g/dL Albumin (3.5-5.0) g/dL Globulin (2.4-3.5) g/dL Albumin/Globulin Ratio (1.1-2.2) Triglycerides 153 H (< 150) mg/dL Lipase 132 H (8-78) Units/L TSH (0.350-4.840) mcIU/mL Free T4 (0.70-1.48) ng/dl Free T3 (1.71-3.71) pg/mL Urine Color (Yellow) Urine Clarity (Clear) Urine pH (5.0-8.0) pH Units Ur Specific [place] (1.010-1.025) Urine Protein (Neg-Trace) mg/dL Urine Glucose (UA) (Normal) mg/dL Urine Ketones (Negative) mg/dL Urine Blood (Negative) Urine Nitrite (Negative) Urine Bilirubin (Negative) Urine Urobilinogen (Normal) mg/dL Ur Leukocyte Esterase (Negative) Urine Microscopic RBC (0-3) per hpf Urine Microscopic WBC (0-3) per hpf Ur Squamous Epith Cells (None-Few) per lpf Urine Bacteria (None-Few) per hpf Hyaline Casts (None-Few) per lpf Chlamy pneumoniae PCR (Not Detect) Adenovirus (PCR) (Not Detect) B. pertussis DNA (PCR) (Not Detect) Coronavirus OC43 (PCR) (Not Detect) Coronavirus HKU1 (PCR) (Not Detect) Coronavirus 229E (PCR) (Not Detect) Coronavirus NL63 (PCR) (Not Detect) Human Metapneumovirus (Not Detect) Influenza A (H1) PCR (Not Detect) Influ A (H1N1/09) PCR (Not Detect) Influenza A (H3) PCR (Not Detect) Influenza A Untype (PCR) (Not Detect) Influenza Type B (PCR) (Not Detect) M.pneumoniae DNA (PCR) (Not Detect) Parainfluenza 1 (PCR) (Not Detect) Parainfluenza 2 (PCR) (Not Detect) Parainfluenza 3 (PCR) (Not Detect) Parainfluenza 4 (PCR) (Not Detect) RSV (PCR) (Not Detect) Entero/Rhino (PCR) (Not Detect) 11/10/16 11/10/16 11/10/16 Range/Units 09:03 11:01 11:45 WBC (4.3-11.1) K/mcL RBC (3.82-4.97) M/mcL Hgb (11.5-15.4) g/dL Hct (35.3-44.9) % MCV (83.0-100.0) fL MCH (28.0-33.3) pg MCHC (31.6-35.5) g/dL RDW (11.5-14.5) % Plt Count (140-400) K/mcL MPV (9.4-12.4) fL Immature Gran % (0-4) % Seg Neutrophils % % Band Neutrophils % (0-4) % Lymphocytes % % Monocytes % % Eosinophils % % Basophils % % Neutrophils # (1.6-8.9) K/mcL Lymphocytes # (0.6-4.6) K/mcL Monocytes # (0.0-1.3) K/mcL Eosinophils # (0.0-0.6) K/mcL Basophils # (0.0-0.2) K/mcL Nucleated RBCs/100 WBC (0) /100 WBC Hypersegmented Neuts (Not Present) Toxic Granulation (Not Present) Platelet Estimate (Normal) Large Platelets (Not Present) APTT (26.0-36.0) Seconds ABG pH 7.31 L (7.32-7.45) pH Units ABG pCO2 68 H (35-45) mmHg ABG pO2 65 L (85-104) mmHg ABG HCO3 28.8 H (21-27) mEQ/L ABG Total CO2 36.3 H (20-26) mEq/L ABG O2 Saturation 90 L (95-98) % ABG Base Excess 5.2 H (-2.0 to 3.0) mEq/L Respiration Rate Blood Gas Modality VENT Inspired O2 70 % Tidal Volume cc PEEP cm H2O Sodium (136-145) mEq/L Potassium (3.5-4.5) mEq/L Chloride (98-109) mEq/L Carbon Dioxide (19-29) mEq/L BUN (7-20) mg/dL Creatinine (0.57-1.11) mg/dL Est GFR ( Amer) (> 60) Est GFR (Non-Af Amer) (> 60) BUN/Creatinine Ratio (6-26) Glucose (70-99) mg/dL POC Glucose 138 H (58-89) Calculated Osmolality (280-300) Lactic Acid (0.5-2.2) mmol/L Calcium (8.6-10.8) mg/dL Ionized Calcium (1.15-1.35) mmol/L Phosphorus (2.3-4.7) mg/dL Magnesium (1.6-2.6) mg/dL Total Bilirubin (0.2-1.2) mg/dL Direct Bilirubin (0.0-0.5) mg/dL Indirect Bilirubin (0.0-1.2) mg/dL AST (5-34) Units/L ALT (0-55) Units/L Alkaline Phosphatase (38-126) Units/L Creatine Kinase (29-168) Units/L Troponin I (0-0.03) ng/mL Serum Total Protein (6.0-8.3) g/dL Albumin (3.5-5.0) g/dL Globulin (2.4-3.5) g/dL Albumin/Globulin Ratio (1.1-2.2) Triglycerides (< 150) mg/dL Lipase (8-78) Units/L TSH (0.350-4.840) mcIU/mL Free T4 (0.70-1.48) ng/dl Free T3 (1.71-3.71) pg/mL Urine Color (Yellow) Urine Clarity (Clear) Urine pH (5.0-8.0) pH Units Ur Specific [place] (1.010-1.025) Urine Protein (Neg-Trace) mg/dL Urine Glucose (UA) (Normal) mg/dL Urine Ketones (Negative) mg/dL Urine Blood (Negative) Urine Nitrite (Negative) Urine Bilirubin (Negative) Urine Urobilinogen (Normal) mg/dL Ur Leukocyte Esterase (Negative) Urine Microscopic RBC (0-3) per hpf Urine Microscopic WBC (0-3) per hpf Ur Squamous Epith Cells (None-Few) per lpf Urine Bacteria (None-Few) per hpf Hyaline Casts (None-Few) per lpf Chlamy pneumoniae PCR Not Detected (Not Detect) Adenovirus (PCR) Not Detected (Not Detect) B. pertussis DNA (PCR) Not Detected (Not Detect) Coronavirus OC43 (PCR) Not Detected (Not Detect) Coronavirus HKU1 (PCR) Not Detected (Not Detect) Coronavirus 229E (PCR) Not Detected (Not Detect) Coronavirus NL63 (PCR) Not Detected (Not Detect) Human Metapneumovirus Not Detected (Not Detect) Influenza A (H1) PCR Not Detected (Not Detect) Influ A (H1N1/09) PCR Not Detected (Not Detect) Influenza A (H3) PCR Not Detected (Not Detect) Influenza A Untype (PCR) Not Detected (Not Detect) Influenza Type B (PCR) Not Detected (Not Detect) M.pneumoniae DNA (PCR) Not Detected (Not Detect) Parainfluenza 1 (PCR) Not Detected (Not Detect) Parainfluenza 2 (PCR) Not Detected (Not Detect) Parainfluenza 3 (PCR) Not Detected (Not Detect) Parainfluenza 4 (PCR) Not Detected (Not Detect) RSV (PCR) Not Detected (Not Detect) Entero/Rhino (PCR) Not Detected (Not Detect) 11/10/16 11/10/16 11/10/16 Range/Units 14:45 14:45 14:45 WBC 14.4 H (4.3-11.1) K/mcL RBC 4.85 (3.82-4.97) M/mcL Hgb 13.6 (11.5-15.4) g/dL Hct 42.6 (35.3-44.9) % MCV 87.8 (83.0-100.0) fL MCH 28.0 (28.0-33.3) pg MCHC 31.9 (31.6-35.5) g/dL RDW 16.1 H (11.5-14.5) % Plt Count 163 (140-400) K/mcL MPV 10.8 (9.4-12.4) fL Immature Gran % 0.6 (0-4) % Seg Neutrophils % 86.1 % Band Neutrophils % (0-4) % Lymphocytes % 4.5 % Monocytes % 8.6 % Eosinophils % 0.1 % Basophils % 0.1 % Neutrophils # 12.4 H (1.6-8.9) K/mcL Lymphocytes # 0.7 (0.6-4.6) K/mcL Monocytes # 1.2 (0.0-1.3) K/mcL Eosinophils # 0.0 (0.0-0.6) K/mcL Basophils # 0.0 (0.0-0.2) K/mcL Nucleated RBCs/100 WBC 0.3 H (0) /100 WBC Hypersegmented Neuts (Not Present) Toxic Granulation (Not Present) Platelet Estimate (Normal) Large Platelets (Not Present) APTT (26.0-36.0) Seconds ABG pH (7.32-7.45) pH Units ABG pCO2 (35-45) mmHg ABG pO2 (85-104) mmHg ABG HCO3 (21-27) mEQ/L ABG Total CO2 (20-26) mEq/L ABG O2 Saturation (95-98) % ABG Base Excess (-2.0 to 3.0) mEq/L Respiration Rate Blood Gas Modality Inspired O2 % Tidal Volume cc PEEP cm H2O Sodium 135 L (136-145) mEq/L Potassium 4.5 (3.5-4.5) mEq/L Chloride 94 L (98-109) mEq/L Carbon Dioxide 28 (19-29) mEq/L BUN 69 H (7-20) mg/dL Creatinine 2.21 H (0.57-1.11) mg/dL Est GFR ( Amer) 27 L (> 60) Est GFR (Non-Af Amer) 23 L (> 60) BUN/Creatinine Ratio 31 H (6-26) Glucose 114 H (70-99) mg/dL POC Glucose (58-89) Calculated Osmolality 301 H (280-300) Lactic Acid 0.9 (0.5-2.2) mmol/L Calcium 8.5 L (8.6-10.8) mg/dL Ionized Calcium (1.15-1.35) mmol/L Phosphorus (2.3-4.7) mg/dL Magnesium 2.0 (1.6-2.6) mg/dL Total Bilirubin 0.4 (0.2-1.2) mg/dL Direct Bilirubin (0.0-0.5) mg/dL Indirect Bilirubin (0.0-1.2) mg/dL AST 27 (5-34) Units/L ALT 62 H (0-55) Units/L Alkaline Phosphatase 66 (38-126) Units/L Creatine Kinase (29-168) Units/L Troponin I (0-0.03) ng/mL Serum Total Protein 5.6 L (6.0-8.3) g/dL Albumin 2.5 L (3.5-5.0) g/dL Globulin 3.1 (2.4-3.5) g/dL Albumin/Globulin Ratio 0.8 L (1.1-2.2) Triglycerides (< 150) mg/dL Lipase (8-78) Units/L TSH (0.350-4.840) mcIU/mL Free T4 (0.70-1.48) ng/dl Free T3 (1.71-3.71) pg/mL Urine Color (Yellow) Urine Clarity (Clear) Urine pH (5.0-8.0) pH Units Ur Specific [place] (1.010-1.025) Urine Protein (Neg-Trace) mg/dL Urine Glucose (UA) (Normal) mg/dL Urine Ketones (Negative) mg/dL Urine Blood (Negative) Urine Nitrite (Negative) Urine Bilirubin (Negative) Urine Urobilinogen (Normal) mg/dL Ur Leukocyte Esterase (Negative) Urine Microscopic RBC (0-3) per hpf Urine Microscopic WBC (0-3) per hpf Ur Squamous Epith Cells (None-Few) per lpf Urine Bacteria (None-Few) per hpf Hyaline Casts (None-Few) per lpf Chlamy pneumoniae PCR (Not Detect) Adenovirus (PCR) (Not Detect) B. pertussis DNA (PCR) (Not Detect) Coronavirus OC43 (PCR) (Not Detect) Coronavirus HKU1 (PCR) (Not Detect) Coronavirus 229E (PCR) (Not Detect) Coronavirus NL63 (PCR) (Not Detect) Human Metapneumovirus (Not Detect) Influenza A (H1) PCR (Not Detect) Influ A (H1N1/09) PCR (Not Detect) Influenza A (H3) PCR (Not Detect) Influenza A Untype (PCR) (Not Detect) Influenza Type B (PCR) (Not Detect) M.pneumoniae DNA (PCR) (Not Detect) Parainfluenza 1 (PCR) (Not Detect) Parainfluenza 2 (PCR) (Not Detect) Parainfluenza 3 (PCR) (Not Detect) Parainfluenza 4 (PCR) (Not Detect) RSV (PCR) (Not Detect) Entero/Rhino (PCR) (Not Detect) 11/10/16 11/10/16 11/10/16 Range/Units 18:03 20:00 23:03 WBC (4.3-11.1) K/mcL RBC (3.82-4.97) M/mcL Hgb (11.5-15.4) g/dL Hct (35.3-44.9) % MCV (83.0-100.0) fL MCH (28.0-33.3) pg MCHC (31.6-35.5) g/dL RDW (11.5-14.5) % Plt Count (140-400) K/mcL MPV (9.4-12.4) fL Immature Gran % (0-4) % Seg Neutrophils % % Band Neutrophils % (0-4) % Lymphocytes % % Monocytes % % Eosinophils % % Basophils % % Neutrophils # (1.6-8.9) K/mcL Lymphocytes # (0.6-4.6) K/mcL Monocytes # (0.0-1.3) K/mcL Eosinophils # (0.0-0.6) K/mcL Basophils # (0.0-0.2) K/mcL Nucleated RBCs/100 WBC (0) /100 WBC Hypersegmented Neuts (Not Present) Toxic Granulation (Not Present) Platelet Estimate (Normal) Large Platelets (Not Present) APTT (26.0-36.0) Seconds ABG pH 7.39 (7.32-7.45) pH Units ABG pCO2 60 H (35-45) mmHg ABG pO2 58 L (85-104) mmHg ABG HCO3 36.3 H (21-27) mEQ/L ABG Total CO2 38.1 H (20-26) mEq/L ABG O2 Saturation 89 L (95-98) % ABG Base Excess 8.8 H (-2.0 to 3.0) mEq/L Respiration Rate Blood Gas Modality VC Inspired O2 60 % Tidal Volume cc PEEP cm H2O Sodium (136-145) mEq/L Potassium (3.5-4.5) mEq/L Chloride (98-109) mEq/L Carbon Dioxide (19-29) mEq/L BUN (7-20) mg/dL Creatinine (0.57-1.11) mg/dL Est GFR ( Amer) (> 60) Est GFR (Non-Af Amer) (> 60) BUN/Creatinine Ratio (6-26) Glucose (70-99) mg/dL POC Glucose 119 H 87 (58-89) Calculated Osmolality (280-300) Lactic Acid (0.5-2.2) mmol/L Calcium (8.6-10.8) mg/dL Ionized Calcium (1.15-1.35) mmol/L Phosphorus (2.3-4.7) mg/dL Magnesium (1.6-2.6) mg/dL Total Bilirubin (0.2-1.2) mg/dL Direct Bilirubin (0.0-0.5) mg/dL Indirect Bilirubin (0.0-1.2) mg/dL AST (5-34) Units/L ALT (0-55) Units/L Alkaline Phosphatase (38-126) Units/L Creatine Kinase (29-168) Units/L Troponin I (0-0.03) ng/mL Serum Total Protein (6.0-8.3) g/dL Albumin (3.5-5.0) g/dL Globulin (2.4-3.5) g/dL Albumin/Globulin Ratio (1.1-2.2) Triglycerides (< 150) mg/dL Lipase (8-78) Units/L TSH (0.350-4.840) mcIU/mL Free T4 (0.70-1.48) ng/dl Free T3 (1.71-3.71) pg/mL Urine Color (Yellow) Urine Clarity (Clear) Urine pH (5.0-8.0) pH Units Ur Specific [place] (1.010-1.025) Urine Protein (Neg-Trace) mg/dL Urine Glucose (UA) (Normal) mg/dL Urine Ketones (Negative) mg/dL Urine Blood (Negative) Urine Nitrite (Negative) Urine Bilirubin (Negative) Urine Urobilinogen (Normal) mg/dL Ur Leukocyte Esterase (Negative) Urine Microscopic RBC (0-3) per hpf Urine Microscopic WBC (0-3) per hpf Ur Squamous Epith Cells (None-Few) per lpf Urine Bacteria (None-Few) per hpf Hyaline Casts (None-Few) per lpf Chlamy pneumoniae PCR (Not Detect) Adenovirus (PCR) (Not Detect) B. pertussis DNA (PCR) (Not Detect) Coronavirus OC43 (PCR) (Not Detect) Coronavirus HKU1 (PCR) (Not Detect) Coronavirus 229E (PCR) (Not Detect) Coronavirus NL63 (PCR) (Not Detect) Human Metapneumovirus (Not Detect) Influenza A (H1) PCR (Not Detect) Influ A (H1N1/09) PCR (Not Detect) Influenza A (H3) PCR (Not Detect) Influenza A Untype (PCR) (Not Detect) Influenza Type B (PCR) (Not Detect) M.pneumoniae DNA (PCR) (Not Detect) Parainfluenza 1 (PCR) (Not Detect) Parainfluenza 2 (PCR) (Not Detect) Parainfluenza 3 (PCR) (Not Detect) Parainfluenza 4 (PCR) (Not Detect) RSV (PCR) (Not Detect) Entero/Rhino (PCR) (Not Detect) 11/11/16 11/11/16 11/11/16 Range/Units 03:00 03:00 04:10 WBC 13.1 H (4.3-11.1) K/mcL RBC 4.73 (3.82-4.97) M/mcL Hgb 13.6 (11.5-15.4) g/dL Hct 41.6 (35.3-44.9) % MCV 87.9 (83.0-100.0) fL MCH 28.8 (28.0-33.3) pg MCHC 32.7 (31.6-35.5) g/dL RDW 16.1 H (11.5-14.5) % Plt Count 159 (140-400) K/mcL MPV 10.2 (9.4-12.4) fL Immature Gran % 0.5 (0-4) % Seg Neutrophils % 85.1 % Band Neutrophils % (0-4) % Lymphocytes % 5.7 % Monocytes % 8.3 % Eosinophils % 0.3 % Basophils % 0.1 % Neutrophils # 11.2 H (1.6-8.9) K/mcL Lymphocytes # 0.8 (0.6-4.6) K/mcL Monocytes # 1.1 (0.0-1.3) K/mcL Eosinophils # 0.0 (0.0-0.6) K/mcL Basophils # 0.0 (0.0-0.2) K/mcL Nucleated RBCs/100 WBC 0.2 H (0) /100 WBC Hypersegmented Neuts (Not Present) Toxic Granulation (Not Present) Platelet Estimate (Normal) Large Platelets (Not Present) APTT (26.0-36.0) Seconds ABG pH 7.36 (7.32-7.45) pH Units ABG pCO2 65 H (35-45) mmHg ABG pO2 57 L (85-104) mmHg ABG HCO3 36.7 H (21-27) mEQ/L ABG Total CO2 38.7 H (20-26) mEq/L ABG O2 Saturation 88 L (95-98) % ABG Base Excess 8.3 H (-2.0 to 3.0) mEq/L Respiration Rate Blood Gas Modality VC Inspired O2 65 % Tidal Volume cc PEEP cm H2O Sodium 137 (136-145) mEq/L Potassium 4.2 (3.5-4.5) mEq/L Chloride 93 L (98-109) mEq/L Carbon Dioxide 31 H (19-29) mEq/L BUN 72 H (7-20) mg/dL Creatinine 2.28 H (0.57-1.11) mg/dL Est GFR ( Amer) 26 L (> 60) Est GFR (Non-Af Amer) 22 L (> 60) BUN/Creatinine Ratio 32 H (6-26) Glucose 109 H (70-99) mg/dL POC Glucose (58-89) Calculated Osmolality 306 H (280-300) Lactic Acid (0.5-2.2) mmol/L Calcium 8.4 L (8.6-10.8) mg/dL Ionized Calcium 1.04 L (1.15-1.35) mmol/L Phosphorus 6.4 H (2.3-4.7) mg/dL Magnesium 1.9 (1.6-2.6) mg/dL Total Bilirubin 0.6 (0.2-1.2) mg/dL Direct Bilirubin 0.3 (0.0-0.5) mg/dL Indirect Bilirubin 0.3 (0.0-1.2) mg/dL AST 37 H (5-34) Units/L ALT 57 H (0-55) Units/L Alkaline Phosphatase 63 (38-126) Units/L Creatine Kinase (29-168) Units/L Troponin I (0-0.03) ng/mL Serum Total Protein 5.5 L (6.0-8.3) g/dL Albumin 2.5 L (3.5-5.0) g/dL Globulin 3.0 (2.4-3.5) g/dL Albumin/Globulin Ratio 0.8 L (1.1-2.2) Triglycerides (< 150) mg/dL Lipase (8-78) Units/L TSH (0.350-4.840) mcIU/mL Free T4 (0.70-1.48) ng/dl Free T3 (1.71-3.71) pg/mL Urine Color (Yellow) Urine Clarity (Clear) Urine pH (5.0-8.0) pH Units Ur Specific [place] (1.010-1.025) Urine Protein (Neg-Trace) mg/dL Urine Glucose (UA) (Normal) mg/dL Urine Ketones (Negative) mg/dL Urine Blood (Negative) Urine Nitrite (Negative) Urine Bilirubin (Negative) Urine Urobilinogen (Normal) mg/dL Ur Leukocyte Esterase (Negative) Urine Microscopic RBC (0-3) per hpf Urine Microscopic WBC (0-3) per hpf Ur Squamous Epith Cells (None-Few) per lpf Urine Bacteria (None-Few) per hpf Hyaline Casts (None-Few) per lpf Chlamy pneumoniae PCR (Not Detect) Adenovirus (PCR) (Not Detect) B. pertussis DNA (PCR) (Not Detect) Coronavirus OC43 (PCR) (Not Detect) Coronavirus HKU1 (PCR) (Not Detect) Coronavirus 229E (PCR) (Not Detect) Coronavirus NL63 (PCR) (Not Detect) Human Metapneumovirus (Not Detect) Influenza A (H1) PCR (Not Detect) Influ A (H1N1/09) PCR (Not Detect) Influenza A (H3) PCR (Not Detect) Influenza A Untype (PCR) (Not Detect) Influenza Type B (PCR) (Not Detect) M.pneumoniae DNA (PCR) (Not Detect) Parainfluenza 1 (PCR) (Not Detect) Parainfluenza 2 (PCR) (Not Detect) Parainfluenza 3 (PCR) (Not Detect) Parainfluenza 4 (PCR) (Not Detect) RSV (PCR) (Not Detect) Entero/Rhino (PCR) (Not Detect) 11/11/16 11/11/16 11/11/16 Range/Units 11:26 11:27 14:55 WBC (4.3-11.1) K/mcL RBC (3.82-4.97) M/mcL Hgb (11.5-15.4) g/dL Hct (35.3-44.9) % MCV (83.0-100.0) fL MCH (28.0-33.3) pg MCHC (31.6-35.5) g/dL RDW (11.5-14.5) % Plt Count (140-400) K/mcL MPV (9.4-12.4) fL Immature Gran % (0-4) % Seg Neutrophils % % Band Neutrophils % (0-4) % Lymphocytes % % Monocytes % % Eosinophils % % Basophils % % Neutrophils # (1.6-8.9) K/mcL Lymphocytes # (0.6-4.6) K/mcL Monocytes # (0.0-1.3) K/mcL Eosinophils # (0.0-0.6) K/mcL Basophils # (0.0-0.2) K/mcL Nucleated RBCs/100 WBC (0) /100 WBC Hypersegmented Neuts (Not Present) Toxic Granulation (Not Present) Platelet Estimate (Normal) Large Platelets (Not Present) APTT (26.0-36.0) Seconds ABG pH 7.36 (7.32-7.45) pH Units ABG pCO2 67 H (35-45) mmHg ABG pO2 60 L (85-104) mmHg ABG HCO3 37.9 H (21-27) mEQ/L ABG Total CO2 40.0 H (20-26) mEq/L ABG O2 Saturation 90 L (95-98) % ABG Base Excess 9.4 H (-2.0 to 3.0) mEq/L Respiration Rate 24 Blood Gas Modality VC Inspired O2 70 % Tidal Volume 360 cc PEEP 14 cm H2O Sodium 136 (136-145) mEq/L Potassium 4.3 (3.5-4.5) mEq/L Chloride 93 L (98-109) mEq/L Carbon Dioxide 31 H (19-29) mEq/L BUN 76 H (7-20) mg/dL Creatinine 2.29 H (0.57-1.11) mg/dL Est GFR ( Amer) 26 L (> 60) Est GFR (Non-Af Amer) 22 L (> 60) BUN/Creatinine Ratio 33 H (6-26) Glucose 92 (70-99) mg/dL POC Glucose 106 H (58-89) Calculated Osmolality 304 H (280-300) Lactic Acid (0.5-2.2) mmol/L Calcium 8.9 (8.6-10.8) mg/dL Ionized Calcium 1.07 L (1.15-1.35) mmol/L Phosphorus 6.9 H (2.3-4.7) mg/dL Magnesium 2.3 (1.6-2.6) mg/dL Total Bilirubin (0.2-1.2) mg/dL Direct Bilirubin (0.0-0.5) mg/dL Indirect Bilirubin (0.0-1.2) mg/dL AST (5-34) Units/L ALT (0-55) Units/L Alkaline Phosphatase (38-126) Units/L Creatine Kinase (29-168) Units/L Troponin I (0-0.03) ng/mL Serum Total Protein (6.0-8.3) g/dL Albumin (3.5-5.0) g/dL Globulin (2.4-3.5) g/dL Albumin/Globulin Ratio (1.1-2.2) Triglycerides (< 150) mg/dL Lipase (8-78) Units/L TSH (0.350-4.840) mcIU/mL Free T4 (0.70-1.48) ng/dl Free T3 (1.71-3.71) pg/mL Urine Color (Yellow) Urine Clarity (Clear) Urine pH (5.0-8.0) pH Units Ur Specific [place] (1.010-1.025) Urine Protein (Neg-Trace) mg/dL Urine Glucose (UA) (Normal) mg/dL Urine Ketones (Negative) mg/dL Urine Blood (Negative) Urine Nitrite (Negative) Urine Bilirubin (Negative) Urine Urobilinogen (Normal) mg/dL Ur Leukocyte Esterase (Negative) Urine Microscopic RBC (0-3) per hpf Urine Microscopic WBC (0-3) per hpf Ur Squamous Epith Cells (None-Few) per lpf Urine Bacteria (None-Few) per hpf Hyaline Casts (None-Few) per lpf Chlamy pneumoniae PCR (Not Detect) Adenovirus (PCR) (Not Detect) B. pertussis DNA (PCR) (Not Detect) Coronavirus OC43 (PCR) (Not Detect) Coronavirus HKU1 (PCR) (Not Detect) Coronavirus 229E (PCR) (Not Detect) Coronavirus NL63 (PCR) (Not Detect) Human Metapneumovirus (Not Detect) Influenza A (H1) PCR (Not Detect) Influ A (H1N1/09) PCR (Not Detect) Influenza A (H3) PCR (Not Detect) Influenza A Untype (PCR) (Not Detect) Influenza Type B (PCR) (Not Detect) M.pneumoniae DNA (PCR) (Not Detect) Parainfluenza 1 (PCR) (Not Detect) Parainfluenza 2 (PCR) (Not Detect) Parainfluenza 3 (PCR) (Not Detect) Parainfluenza 4 (PCR) (Not Detect) RSV (PCR) (Not Detect) Entero/Rhino (PCR) (Not Detect) 11/11/16 11/11/16 11/12/16 Range/Units 18:18 23:32 03:00 WBC 13.4 H (4.3-11.1) K/mcL RBC 4.84 (3.82-4.97) M/mcL Hgb 13.5 (11.5-15.4) g/dL Hct 42.8 (35.3-44.9) % MCV 88.4 (83.0-100.0) fL MCH 27.9 L (28.0-33.3) pg MCHC 31.5 L (31.6-35.5) g/dL RDW 16.0 H (11.5-14.5) % Plt Count 152 (140-400) K/mcL MPV 10.5 (9.4-12.4) fL Immature Gran % 0.5 (0-4) % Seg Neutrophils % 85.8 % Band Neutrophils % (0-4) % Lymphocytes % 3.8 % Monocytes % 9.1 % Eosinophils % 0.7 % Basophils % 0.1 % Neutrophils # 11.5 H (1.6-8.9) K/mcL Lymphocytes # 0.5 L (0.6-4.6) K/mcL Monocytes # 1.2 (0.0-1.3) K/mcL Eosinophils # 0.1 (0.0-0.6) K/mcL Basophils # 0.0 (0.0-0.2) K/mcL Nucleated RBCs/100 WBC (0) /100 WBC Hypersegmented Neuts (Not Present) Toxic Granulation (Not Present) Platelet Estimate (Normal) Large Platelets (Not Present) APTT (26.0-36.0) Seconds ABG pH (7.32-7.45) pH Units ABG pCO2 (35-45) mmHg ABG pO2 (85-104) mmHg ABG HCO3 (21-27) mEQ/L ABG Total CO2 (20-26) mEq/L ABG O2 Saturation (95-98) % ABG Base Excess (-2.0 to 3.0) mEq/L Respiration Rate Blood Gas Modality Inspired O2 % Tidal Volume cc PEEP cm H2O Sodium (136-145) mEq/L Potassium (3.5-4.5) mEq/L Chloride (98-109) mEq/L Carbon Dioxide (19-29) mEq/L BUN (7-20) mg/dL Creatinine (0.57-1.11) mg/dL Est GFR ( Amer) (> 60) Est GFR (Non-Af Amer) (> 60) BUN/Creatinine Ratio (6-26) Glucose (70-99) mg/dL POC Glucose 128 H 105 H (58-89) Calculated Osmolality (280-300) Lactic Acid (0.5-2.2) mmol/L Calcium (8.6-10.8) mg/dL Ionized Calcium (1.15-1.35) mmol/L Phosphorus (2.3-4.7) mg/dL Magnesium (1.6-2.6) mg/dL Total Bilirubin (0.2-1.2) mg/dL Direct Bilirubin (0.0-0.5) mg/dL Indirect Bilirubin (0.0-1.2) mg/dL AST (5-34) Units/L ALT (0-55) Units/L Alkaline Phosphatase (38-126) Units/L Creatine Kinase (29-168) Units/L Troponin I (0-0.03) ng/mL Serum Total Protein (6.0-8.3) g/dL Albumin (3.5-5.0) g/dL Globulin (2.4-3.5) g/dL Albumin/Globulin Ratio (1.1-2.2) Triglycerides (< 150) mg/dL Lipase (8-78) Units/L TSH (0.350-4.840) mcIU/mL Free T4 (0.70-1.48) ng/dl Free T3 (1.71-3.71) pg/mL Urine Color (Yellow) Urine Clarity (Clear) Urine pH (5.0-8.0) pH Units Ur Specific [place] (1.010-1.025) Urine Protein (Neg-Trace) mg/dL Urine Glucose (UA) (Normal) mg/dL Urine Ketones (Negative) mg/dL Urine Blood (Negative) Urine Nitrite (Negative) Urine Bilirubin (Negative) Urine Urobilinogen (Normal) mg/dL Ur Leukocyte Esterase (Negative) Urine Microscopic RBC (0-3) per hpf Urine Microscopic WBC (0-3) per hpf Ur Squamous Epith Cells (None-Few) per lpf Urine Bacteria (None-Few) per hpf Hyaline Casts (None-Few) per lpf Chlamy pneumoniae PCR (Not Detect) Adenovirus (PCR) (Not Detect) B. pertussis DNA (PCR) (Not Detect) Coronavirus OC43 (PCR) (Not Detect) Coronavirus HKU1 (PCR) (Not Detect) Coronavirus 229E (PCR) (Not Detect) Coronavirus NL63 (PCR) (Not Detect) Human Metapneumovirus (Not Detect) Influenza A (H1) PCR (Not Detect) Influ A (H1N1/09) PCR (Not Detect) Influenza A (H3) PCR (Not Detect) Influenza A Untype (PCR) (Not Detect) Influenza Type B (PCR) (Not Detect) M.pneumoniae DNA (PCR) (Not Detect) Parainfluenza 1 (PCR) (Not Detect) Parainfluenza 2 (PCR) (Not Detect) Parainfluenza 3 (PCR) (Not Detect) Parainfluenza 4 (PCR) (Not Detect) RSV (PCR) (Not Detect) Entero/Rhino (PCR) (Not Detect) 11/12/16 11/12/16 11/12/16 Range/Units 03:00 04:07 10:50 WBC (4.3-11.1) K/mcL RBC (3.82-4.97) M/mcL Hgb (11.5-15.4) g/dL Hct (35.3-44.9) % MCV (83.0-100.0) fL MCH (28.0-33.3) pg MCHC (31.6-35.5) g/dL RDW (11.5-14.5) % Plt Count (140-400) K/mcL MPV (9.4-12.4) fL Immature Gran % (0-4) % Seg Neutrophils % % Band Neutrophils % (0-4) % Lymphocytes % % Monocytes % % Eosinophils % % Basophils % % Neutrophils # (1.6-8.9) K/mcL Lymphocytes # (0.6-4.6) K/mcL Monocytes # (0.0-1.3) K/mcL Eosinophils # (0.0-0.6) K/mcL Basophils # (0.0-0.2) K/mcL Nucleated RBCs/100 WBC (0) /100 WBC Hypersegmented Neuts (Not Present) Toxic Granulation (Not Present) Platelet Estimate (Normal) Large Platelets (Not Present) APTT (26.0-36.0) Seconds ABG pH 7.43 (7.32-7.45) pH Units ABG pCO2 60 H (35-45) mmHg ABG pO2 58 L (85-104) mmHg ABG HCO3 39.8 H (21-27) mEQ/L ABG Total CO2 41.6 H (20-26) mEq/L ABG O2 Saturation 90 L (95-98) % ABG Base Excess 12.7 H (-2.0 to 3.0) mEq/L Respiration Rate Blood Gas Modality VC+ Inspired O2 60 % Tidal Volume cc PEEP cm H2O Sodium 141 (136-145) mEq/L Potassium 4.3 (3.5-4.5) mEq/L Chloride 95 L (98-109) mEq/L Carbon Dioxide 32 H (19-29) mEq/L BUN 77 H (7-20) mg/dL Creatinine 2.16 H (0.57-1.11) mg/dL Est GFR ( Amer) 28 L (> 60) Est GFR (Non-Af Amer) 23 L (> 60) BUN/Creatinine Ratio 36 H (6-26) Glucose 98 (70-99) mg/dL POC Glucose 142 H (58-89) Calculated Osmolality 315 H (280-300) Lactic Acid (0.5-2.2) mmol/L Calcium 9.0 (8.6-10.8) mg/dL Ionized Calcium 1.08 L (1.15-1.35) mmol/L Phosphorus 6.2 H (2.3-4.7) mg/dL Magnesium 2.2 (1.6-2.6) mg/dL Total Bilirubin 0.8 (0.2-1.2) mg/dL Direct Bilirubin 0.5 (0.0-0.5) mg/dL Indirect Bilirubin 0.3 (0.0-1.2) mg/dL AST 54 H (5-34) Units/L ALT 51 (0-55) Units/L Alkaline Phosphatase 63 (38-126) Units/L Creatine Kinase (29-168) Units/L Troponin I (0-0.03) ng/mL Serum Total Protein 5.9 L (6.0-8.3) g/dL Albumin 2.4 L (3.5-5.0) g/dL Globulin 3.5 (2.4-3.5) g/dL Albumin/Globulin Ratio 0.7 L (1.1-2.2) Triglycerides (< 150) mg/dL Lipase (8-78) Units/L TSH (0.350-4.840) mcIU/mL Free T4 (0.70-1.48) ng/dl Free T3 (1.71-3.71) pg/mL Urine Color (Yellow) Urine Clarity (Clear) Urine pH (5.0-8.0) pH Units Ur Specific [place] (1.010-1.025) Urine Protein (Neg-Trace) mg/dL Urine Glucose (UA) (Normal) mg/dL Urine Ketones (Negative) mg/dL Urine Blood (Negative) Urine Nitrite (Negative) Urine Bilirubin (Negative) Urine Urobilinogen (Normal) mg/dL Ur Leukocyte Esterase (Negative) Urine Microscopic RBC (0-3) per hpf Urine Microscopic WBC (0-3) per hpf Ur Squamous Epith Cells (None-Few) per lpf Urine Bacteria (None-Few) per hpf Hyaline Casts (None-Few) per lpf Chlamy pneumoniae PCR (Not Detect) Adenovirus (PCR) (Not Detect) B. pertussis DNA (PCR) (Not Detect) Coronavirus OC43 (PCR) (Not Detect) Coronavirus HKU1 (PCR) (Not Detect) Coronavirus 229E (PCR) (Not Detect) Coronavirus NL63 (PCR) (Not Detect) Human Metapneumovirus (Not Detect) Influenza A (H1) PCR (Not Detect) Influ A (H1N1/09) PCR (Not Detect) Influenza A (H3) PCR (Not Detect) Influenza A Untype (PCR) (Not Detect) Influenza Type B (PCR) (Not Detect) M.pneumoniae DNA (PCR) (Not Detect) Parainfluenza 1 (PCR) (Not Detect) Parainfluenza 2 (PCR) (Not Detect) Parainfluenza 3 (PCR) (Not Detect) Parainfluenza 4 (PCR) (Not Detect) RSV (PCR) (Not Detect) Entero/Rhino (PCR) (Not Detect) 11/12/16 11/12/16 11/13/16 Range/Units 14:39 15:09 00:10 WBC (4.3-11.1) K/mcL RBC (3.82-4.97) M/mcL Hgb (11.5-15.4) g/dL Hct (35.3-44.9) % MCV (83.0-100.0) fL MCH (28.0-33.3) pg MCHC (31.6-35.5) g/dL RDW (11.5-14.5) % Plt Count (140-400) K/mcL MPV (9.4-12.4) fL Immature Gran % (0-4) % Seg Neutrophils % % Band Neutrophils % (0-4) % Lymphocytes % % Monocytes % % Eosinophils % % Basophils % % Neutrophils # (1.6-8.9) K/mcL Lymphocytes # (0.6-4.6) K/mcL Monocytes # (0.0-1.3) K/mcL Eosinophils # (0.0-0.6) K/mcL Basophils # (0.0-0.2) K/mcL Nucleated RBCs/100 WBC (0) /100 WBC Hypersegmented Neuts (Not Present) Toxic Granulation (Not Present) Platelet Estimate (Normal) Large Platelets (Not Present) APTT (26.0-36.0) Seconds ABG pH 7.40 (7.32-7.45) pH Units ABG pCO2 56 H (35-45) mmHg ABG pO2 60 L (85-104) mmHg ABG HCO3 34.7 H (21-27) mEQ/L ABG Total CO2 36.4 H (20-26) mEq/L ABG O2 Saturation 91 L (95-98) % ABG Base Excess 8.2 H (-2.0 to 3.0) mEq/L Respiration Rate Blood Gas Modality VCT DDRAKE Inspired O2 100.0 % Tidal Volume 360 cc PEEP cm H2O Sodium (136-145) mEq/L Potassium (3.5-4.5) mEq/L Chloride (98-109) mEq/L Carbon Dioxide (19-29) mEq/L BUN (7-20) mg/dL Creatinine (0.57-1.11) mg/dL Est GFR ( Amer) (> 60) Est GFR (Non-Af Amer) (> 60) BUN/Creatinine Ratio (6-26) Glucose (70-99) mg/dL POC Glucose 205 H (58-89) Calculated Osmolality (280-300) Lactic Acid (0.5-2.2) mmol/L Calcium (8.6-10.8) mg/dL Ionized Calcium (1.15-1.35) mmol/L Phosphorus (2.3-4.7) mg/dL Magnesium (1.6-2.6) mg/dL Total Bilirubin (0.2-1.2) mg/dL Direct Bilirubin (0.0-0.5) mg/dL Indirect Bilirubin (0.0-1.2) mg/dL AST (5-34) Units/L ALT (0-55) Units/L Alkaline Phosphatase (38-126) Units/L Creatine Kinase (29-168) Units/L Troponin I 0.24 H* (0-0.03) ng/mL Serum Total Protein (6.0-8.3) g/dL Albumin (3.5-5.0) g/dL Globulin (2.4-3.5) g/dL Albumin/Globulin Ratio (1.1-2.2) Triglycerides (< 150) mg/dL Lipase (8-78) Units/L TSH (0.350-4.840) mcIU/mL Free T4 (0.70-1.48) ng/dl Free T3 (1.71-3.71) pg/mL Urine Color (Yellow) Urine Clarity (Clear) Urine pH (5.0-8.0) pH Units Ur Specific [place] (1.010-1.025) Urine Protein (Neg-Trace) mg/dL Urine Glucose (UA) (Normal) mg/dL Urine Ketones (Negative) mg/dL Urine Blood (Negative) Urine Nitrite (Negative) Urine Bilirubin (Negative) Urine Urobilinogen (Normal) mg/dL Ur Leukocyte Esterase (Negative) Urine Microscopic RBC (0-3) per hpf Urine Microscopic WBC (0-3) per hpf Ur Squamous Epith Cells (None-Few) per lpf Urine Bacteria (None-Few) per hpf Hyaline Casts (None-Few) per lpf Chlamy pneumoniae PCR (Not Detect) Adenovirus (PCR) (Not Detect) B. pertussis DNA (PCR) (Not Detect) Coronavirus OC43 (PCR) (Not Detect) Coronavirus HKU1 (PCR) (Not Detect) Coronavirus 229E (PCR) (Not Detect) Coronavirus NL63 (PCR) (Not Detect) Human Metapneumovirus (Not Detect) Influenza A (H1) PCR (Not Detect) Influ A (H1N1/09) PCR (Not Detect) Influenza A (H3) PCR (Not Detect) Influenza A Untype (PCR) (Not Detect) Influenza Type B (PCR) (Not Detect) M.pneumoniae DNA (PCR) (Not Detect) Parainfluenza 1 (PCR) (Not Detect) Parainfluenza 2 (PCR) (Not Detect) Parainfluenza 3 (PCR) (Not Detect) Parainfluenza 4 (PCR) (Not Detect) RSV (PCR) (Not Detect) Entero/Rhino (PCR) (Not Detect) 11/13/16 11/13/16 11/13/16 Range/Units 04:16 04:16 04:16 WBC 8.7 (4.3-11.1) K/mcL RBC 5.07 H (3.82-4.97) M/mcL Hgb 14.4 (11.5-15.4) g/dL Hct 44.2 (35.3-44.9) % MCV 87.2 (83.0-100.0) fL MCH 28.4 (28.0-33.3) pg MCHC 32.6 (31.6-35.5) g/dL RDW 15.8 H (11.5-14.5) % Plt Count 180 (140-400) K/mcL MPV 11.9 (9.4-12.4) fL Immature Gran % 0.5 (0-4) % Seg Neutrophils % 95.1 % Band Neutrophils % (0-4) % Lymphocytes % 1.5 % Monocytes % 2.8 % Eosinophils % 0.0 % Basophils % 0.1 % Neutrophils # 8.3 (1.6-8.9) K/mcL Lymphocytes # 0.1 L (0.6-4.6) K/mcL Monocytes # 0.2 (0.0-1.3) K/mcL Eosinophils # 0.0 (0.0-0.6) K/mcL Basophils # 0.0 (0.0-0.2) K/mcL Nucleated RBCs/100 WBC (0) /100 WBC Hypersegmented Neuts (Not Present) Toxic Granulation Present A (Not Present) Platelet Estimate Normal (Normal) Large Platelets (Not Present) APTT (26.0-36.0) Seconds ABG pH (7.32-7.45) pH Units ABG pCO2 (35-45) mmHg ABG pO2 (85-104) mmHg ABG HCO3 (21-27) mEQ/L ABG Total CO2 (20-26) mEq/L ABG O2 Saturation (95-98) % ABG Base Excess (-2.0 to 3.0) mEq/L Respiration Rate Blood Gas Modality Inspired O2 % Tidal Volume cc PEEP cm H2O Sodium 139 (136-145) mEq/L Potassium 4.3 (3.5-4.5) mEq/L Chloride 97 L (98-109) mEq/L Carbon Dioxide 30 H (19-29) mEq/L BUN 66 H (7-20) mg/dL Creatinine 1.89 H (0.57-1.11) mg/dL Est GFR ( Amer) 33 L (> 60) Est GFR (Non-Af Amer) 27 L (> 60) BUN/Creatinine Ratio 35 H (6-26) Glucose 200 H (70-99) mg/dL POC Glucose (58-89) Calculated Osmolality 313 H (280-300) Lactic Acid (0.5-2.2) mmol/L Calcium 9.6 (8.6-10.8) mg/dL Ionized Calcium 1.13 L (1.15-1.35) mmol/L Phosphorus 4.9 H (2.3-4.7) mg/dL Magnesium 2.4 (1.6-2.6) mg/dL Total Bilirubin 0.4 (0.2-1.2) mg/dL Direct Bilirubin 0.3 (0.0-0.5) mg/dL Indirect Bilirubin 0.1 (0.0-1.2) mg/dL AST 33 (5-34) Units/L ALT 48 (0-55) Units/L Alkaline Phosphatase 74 (38-126) Units/L Creatine Kinase (29-168) Units/L Troponin I 0.17 H* (0-0.03) ng/mL Serum Total Protein 6.6 (6.0-8.3) g/dL Albumin 2.4 L (3.5-5.0) g/dL Globulin 4.2 H (2.4-3.5) g/dL Albumin/Globulin Ratio 0.6 L (1.1-2.2) Triglycerides (< 150) mg/dL Lipase (8-78) Units/L TSH (0.350-4.840) mcIU/mL Free T4 (0.70-1.48) ng/dl Free T3 (1.71-3.71) pg/mL Urine Color (Yellow) Urine Clarity (Clear) Urine pH (5.0-8.0) pH Units Ur Specific [place] (1.010-1.025) Urine Protein (Neg-Trace) mg/dL Urine Glucose (UA) (Normal) mg/dL Urine Ketones (Negative) mg/dL Urine Blood (Negative) Urine Nitrite (Negative) Urine Bilirubin (Negative) Urine Urobilinogen (Normal) mg/dL Ur Leukocyte Esterase (Negative) Urine Microscopic RBC (0-3) per hpf Urine Microscopic WBC (0-3) per hpf Ur Squamous Epith Cells (None-Few) per lpf Urine Bacteria (None-Few) per hpf Hyaline Casts (None-Few) per lpf Chlamy pneumoniae PCR (Not Detect) Adenovirus (PCR) (Not Detect) B. pertussis DNA (PCR) (Not Detect) Coronavirus OC43 (PCR) (Not Detect) Coronavirus HKU1 (PCR) (Not Detect) Coronavirus 229E (PCR) (Not Detect) Coronavirus NL63 (PCR) (Not Detect) Human Metapneumovirus (Not Detect) Influenza A (H1) PCR (Not Detect) Influ A (H1N1/09) PCR (Not Detect) Influenza A (H3) PCR (Not Detect) Influenza A Untype (PCR) (Not Detect) Influenza Type B (PCR) (Not Detect) M.pneumoniae DNA (PCR) (Not Detect) Parainfluenza 1 (PCR) (Not Detect) Parainfluenza 2 (PCR) (Not Detect) Parainfluenza 3 (PCR) (Not Detect) Parainfluenza 4 (PCR) (Not Detect) RSV (PCR) (Not Detect) Entero/Rhino (PCR) (Not Detect) 11/13/16 11/13/16 11/13/16 Range/Units 05:20 07:23 10:54 WBC (4.3-11.1) K/mcL RBC (3.82-4.97) M/mcL Hgb (11.5-15.4) g/dL Hct (35.3-44.9) % MCV (83.0-100.0) fL MCH (28.0-33.3) pg MCHC (31.6-35.5) g/dL RDW (11.5-14.5) % Plt Count (140-400) K/mcL MPV (9.4-12.4) fL Immature Gran % (0-4) % Seg Neutrophils % % Band Neutrophils % (0-4) % Lymphocytes % % Monocytes % % Eosinophils % % Basophils % % Neutrophils # (1.6-8.9) K/mcL Lymphocytes # (0.6-4.6) K/mcL Monocytes # (0.0-1.3) K/mcL Eosinophils # (0.0-0.6) K/mcL Basophils # (0.0-0.2) K/mcL Nucleated RBCs/100 WBC (0) /100 WBC Hypersegmented Neuts (Not Present) Toxic Granulation (Not Present) Platelet Estimate (Normal) Large Platelets (Not Present) APTT (26.0-36.0) Seconds ABG pH 7.41 (7.32-7.45) pH Units ABG pCO2 57 H (35-45) mmHg ABG pO2 65 L (85-104) mmHg ABG HCO3 36.1 H (21-27) mEQ/L ABG Total CO2 37.8 H (20-26) mEq/L ABG O2 Saturation 93 L (95-98) % ABG Base Excess 9.0 H (-2.0 to 3.0) mEq/L Respiration Rate Blood Gas Modality VC+ Inspired O2 80 % Tidal Volume cc PEEP cm H2O Sodium (136-145) mEq/L Potassium (3.5-4.5) mEq/L Chloride (98-109) mEq/L Carbon Dioxide (19-29) mEq/L BUN (7-20) mg/dL Creatinine (0.57-1.11) mg/dL Est GFR ( Amer) (> 60) Est GFR (Non-Af Amer) (> 60) BUN/Creatinine Ratio (6-26) Glucose (70-99) mg/dL POC Glucose 171 H 213 H (58-89) Calculated Osmolality (280-300) Lactic Acid (0.5-2.2) mmol/L Calcium (8.6-10.8) mg/dL Ionized Calcium (1.15-1.35) mmol/L Phosphorus (2.3-4.7) mg/dL Magnesium (1.6-2.6) mg/dL Total Bilirubin (0.2-1.2) mg/dL Direct Bilirubin (0.0-0.5) mg/dL Indirect Bilirubin (0.0-1.2) mg/dL AST (5-34) Units/L ALT (0-55) Units/L Alkaline Phosphatase (38-126) Units/L Creatine Kinase (29-168) Units/L Troponin I (0-0.03) ng/mL Serum Total Protein (6.0-8.3) g/dL Albumin (3.5-5.0) g/dL Globulin (2.4-3.5) g/dL Albumin/Globulin Ratio (1.1-2.2) Triglycerides (< 150) mg/dL Lipase (8-78) Units/L TSH (0.350-4.840) mcIU/mL Free T4 (0.70-1.48) ng/dl Free T3 (1.71-3.71) pg/mL Urine Color (Yellow) Urine Clarity (Clear) Urine pH (5.0-8.0) pH Units Ur Specific [place] (1.010-1.025) Urine Protein (Neg-Trace) mg/dL Urine Glucose (UA) (Normal) mg/dL Urine Ketones (Negative) mg/dL Urine Blood (Negative) Urine Nitrite (Negative) Urine Bilirubin (Negative) Urine Urobilinogen (Normal) mg/dL Ur Leukocyte Esterase (Negative) Urine Microscopic RBC (0-3) per hpf Urine Microscopic WBC (0-3) per hpf Ur Squamous Epith Cells (None-Few) per lpf Urine Bacteria (None-Few) per hpf Hyaline Casts (None-Few) per lpf Chlamy pneumoniae PCR (Not Detect) Adenovirus (PCR) (Not Detect) B. pertussis DNA (PCR) (Not Detect) Coronavirus OC43 (PCR) (Not Detect) Coronavirus HKU1 (PCR) (Not Detect) Coronavirus 229E (PCR) (Not Detect) Coronavirus NL63 (PCR) (Not Detect) Human Metapneumovirus (Not Detect) Influenza A (H1) PCR (Not Detect) Influ A (H1N1/09) PCR (Not Detect) Influenza A (H3) PCR (Not Detect) Influenza A Untype (PCR) (Not Detect) Influenza Type B (PCR) (Not Detect) M.pneumoniae DNA (PCR) (Not Detect) Parainfluenza 1 (PCR) (Not Detect) Parainfluenza 2 (PCR) (Not Detect) Parainfluenza 3 (PCR) (Not Detect) Parainfluenza 4 (PCR) (Not Detect) RSV (PCR) (Not Detect) Entero/Rhino (PCR) (Not Detect) 11/13/16 11/13/16 11/14/16 Range/Units 17:11 23:36 03:15 WBC 9.7 (4.3-11.1) K/mcL RBC 4.99 H (3.82-4.97) M/mcL Hgb 14.4 (11.5-15.4) g/dL Hct 43.9 (35.3-44.9) % MCV 88.0 (83.0-100.0) fL MCH 28.9 (28.0-33.3) pg MCHC 32.8 (31.6-35.5) g/dL RDW 15.7 H (11.5-14.5) % Plt Count 201 (140-400) K/mcL MPV 11.1 (9.4-12.4) fL Immature Gran % 0.5 (0-4) % Seg Neutrophils % 92.5 % Band Neutrophils % (0-4) % Lymphocytes % 1.2 % Monocytes % 5.7 % Eosinophils % 0.0 % Basophils % 0.1 % Neutrophils # 9.0 H (1.6-8.9) K/mcL Lymphocytes # 0.1 L (0.6-4.6) K/mcL Monocytes # 0.6 (0.0-1.3) K/mcL Eosinophils # 0.0 (0.0-0.6) K/mcL Basophils # 0.0 (0.0-0.2) K/mcL Nucleated RBCs/100 WBC (0) /100 WBC Hypersegmented Neuts Present A (Not Present) Toxic Granulation Present A (Not Present) Platelet Estimate Normal (Normal) Large Platelets Present A (Not Present) APTT (26.0-36.0) Seconds ABG pH (7.32-7.45) pH Units ABG pCO2 (35-45) mmHg ABG pO2 (85-104) mmHg ABG HCO3 (21-27) mEQ/L ABG Total CO2 (20-26) mEq/L ABG O2 Saturation (95-98) % ABG Base Excess (-2.0 to 3.0) mEq/L Respiration Rate Blood Gas Modality Inspired O2 % Tidal Volume cc PEEP cm H2O Sodium (136-145) mEq/L Potassium (3.5-4.5) mEq/L Chloride (98-109) mEq/L Carbon Dioxide (19-29) mEq/L BUN (7-20) mg/dL Creatinine (0.57-1.11) mg/dL Est GFR ( Amer) (> 60) Est GFR (Non-Af Amer) (> 60) BUN/Creatinine Ratio (6-26) Glucose (70-99) mg/dL POC Glucose 200 H 185 H (58-89) Calculated Osmolality (280-300) Lactic Acid (0.5-2.2) mmol/L Calcium (8.6-10.8) mg/dL Ionized Calcium (1.15-1.35) mmol/L Phosphorus (2.3-4.7) mg/dL Magnesium (1.6-2.6) mg/dL Total Bilirubin (0.2-1.2) mg/dL Direct Bilirubin (0.0-0.5) mg/dL Indirect Bilirubin (0.0-1.2) mg/dL AST (5-34) Units/L ALT (0-55) Units/L Alkaline Phosphatase (38-126) Units/L Creatine Kinase (29-168) Units/L Troponin I (0-0.03) ng/mL Serum Total Protein (6.0-8.3) g/dL Albumin (3.5-5.0) g/dL Globulin (2.4-3.5) g/dL Albumin/Globulin Ratio (1.1-2.2) Triglycerides (< 150) mg/dL Lipase (8-78) Units/L TSH (0.350-4.840) mcIU/mL Free T4 (0.70-1.48) ng/dl Free T3 (1.71-3.71) pg/mL Urine Color (Yellow) Urine Clarity (Clear) Urine pH (5.0-8.0) pH Units Ur Specific [place] (1.010-1.025) Urine Protein (Neg-Trace) mg/dL Urine Glucose (UA) (Normal) mg/dL Urine Ketones (Negative) mg/dL Urine Blood (Negative) Urine Nitrite (Negative) Urine Bilirubin (Negative) Urine Urobilinogen (Normal) mg/dL Ur Leukocyte Esterase (Negative) Urine Microscopic RBC (0-3) per hpf Urine Microscopic WBC (0-3) per hpf Ur Squamous Epith Cells (None-Few) per lpf Urine Bacteria (None-Few) per hpf Hyaline Casts (None-Few) per lpf Chlamy pneumoniae PCR (Not Detect) Adenovirus (PCR) (Not Detect) B. pertussis DNA (PCR) (Not Detect) Coronavirus OC43 (PCR) (Not Detect) Coronavirus HKU1 (PCR) (Not Detect) Coronavirus 229E (PCR) (Not Detect) Coronavirus NL63 (PCR) (Not Detect) Human Metapneumovirus (Not Detect) Influenza A (H1) PCR (Not Detect) Influ A (H1N1/09) PCR (Not Detect) Influenza A (H3) PCR (Not Detect) Influenza A Untype (PCR) (Not Detect) Influenza Type B (PCR) (Not Detect) M.pneumoniae DNA (PCR) (Not Detect) Parainfluenza 1 (PCR) (Not Detect) Parainfluenza 2 (PCR) (Not Detect) Parainfluenza 3 (PCR) (Not Detect) Parainfluenza 4 (PCR) (Not Detect) RSV (PCR) (Not Detect) Entero/Rhino (PCR) (Not Detect) 11/14/16 11/14/16 11/14/16 Range/Units 03:15 04:40 11:47 WBC (4.3-11.1) K/mcL RBC (3.82-4.97) M/mcL Hgb (11.5-15.4) g/dL Hct (35.3-44.9) % MCV (83.0-100.0) fL MCH (28.0-33.3) pg MCHC (31.6-35.5) g/dL RDW (11.5-14.5) % Plt Count (140-400) K/mcL MPV (9.4-12.4) fL Immature Gran % (0-4) % Seg Neutrophils % % Band Neutrophils % (0-4) % Lymphocytes % % Monocytes % % Eosinophils % % Basophils % % Neutrophils # (1.6-8.9) K/mcL Lymphocytes # (0.6-4.6) K/mcL Monocytes # (0.0-1.3) K/mcL Eosinophils # (0.0-0.6) K/mcL Basophils # (0.0-0.2) K/mcL Nucleated RBCs/100 WBC (0) /100 WBC Hypersegmented Neuts (Not Present) Toxic Granulation (Not Present) Platelet Estimate (Normal) Large Platelets (Not Present) APTT (26.0-36.0) Seconds ABG pH 7.40 (7.32-7.45) pH Units ABG pCO2 60 H (35-45) mmHg ABG pO2 64 L (85-104) mmHg ABG HCO3 37.2 H (21-27) mEQ/L ABG Total CO2 39.0 H (20-26) mEq/L ABG O2 Saturation 92 L (95-98) % ABG Base Excess 10.2 H (-2.0 to 3.0) mEq/L Respiration Rate Blood Gas Modality [id number] Inspired O2 60.0 % Tidal Volume 360 cc PEEP 14.0 cm H2O Sodium 141 (136-145) mEq/L Potassium 3.5 (3.5-4.5) mEq/L Chloride 95 L (98-109) mEq/L Carbon Dioxide 31 H (19-29) mEq/L BUN 69 H (7-20) mg/dL Creatinine 1.96 H (0.57-1.11) mg/dL Est GFR ( Amer) 32 L (> 60) Est GFR (Non-Af Amer) 26 L (> 60) BUN/Creatinine Ratio 35 H (6-26) Glucose 208 H (70-99) mg/dL POC Glucose 202 H (58-89) Calculated Osmolality 318 H (280-300) Lactic Acid (0.5-2.2) mmol/L Calcium 9.8 (8.6-10.8) mg/dL Ionized Calcium 1.17 (1.15-1.35) mmol/L Phosphorus 4.9 H (2.3-4.7) mg/dL Magnesium 2.4 (1.6-2.6) mg/dL Total Bilirubin (0.2-1.2) mg/dL Direct Bilirubin (0.0-0.5) mg/dL Indirect Bilirubin (0.0-1.2) mg/dL AST (5-34) Units/L ALT (0-55) Units/L Alkaline Phosphatase (38-126) Units/L Creatine Kinase (29-168) Units/L Troponin I (0-0.03) ng/mL Serum Total Protein (6.0-8.3) g/dL Albumin (3.5-5.0) g/dL Globulin (2.4-3.5) g/dL Albumin/Globulin Ratio (1.1-2.2) Triglycerides (< 150) mg/dL Lipase (8-78) Units/L TSH (0.350-4.840) mcIU/mL Free T4 (0.70-1.48) ng/dl Free T3 (1.71-3.71) pg/mL Urine Color (Yellow) Urine Clarity (Clear) Urine pH (5.0-8.0) pH Units Ur Specific [place] (1.010-1.025) Urine Protein (Neg-Trace) mg/dL Urine Glucose (UA) (Normal) mg/dL Urine Ketones (Negative) mg/dL Urine Blood (Negative) Urine Nitrite (Negative) Urine Bilirubin (Negative) Urine Urobilinogen (Normal) mg/dL Ur Leukocyte Esterase (Negative) Urine Microscopic RBC (0-3) per hpf Urine Microscopic WBC (0-3) per hpf Ur Squamous Epith Cells (None-Few) per lpf Urine Bacteria (None-Few) per hpf Hyaline Casts (None-Few) per lpf Chlamy pneumoniae PCR (Not Detect) Adenovirus (PCR) (Not Detect) B. pertussis DNA (PCR) (Not Detect) Coronavirus OC43 (PCR) (Not Detect) Coronavirus HKU1 (PCR) (Not Detect) Coronavirus 229E (PCR) (Not Detect) Coronavirus NL63 (PCR) (Not Detect) Human Metapneumovirus (Not Detect) Influenza A (H1) PCR (Not Detect) Influ A (H1N1/09) PCR (Not Detect) Influenza A (H3) PCR (Not Detect) Influenza A Untype (PCR) (Not Detect) Influenza Type B (PCR) (Not Detect) M.pneumoniae DNA (PCR) (Not Detect) Parainfluenza 1 (PCR) (Not Detect) Parainfluenza 2 (PCR) (Not Detect) Parainfluenza 3 (PCR) (Not Detect) Parainfluenza 4 (PCR) (Not Detect) RSV (PCR) (Not Detect) Entero/Rhino (PCR) (Not Detect) 11/14/16 11/14/16 11/14/16 Range/Units 15:57 17:37 21:15 WBC (4.3-11.1) K/mcL RBC (3.82-4.97) M/mcL Hgb (11.5-15.4) g/dL Hct (35.3-44.9) % MCV (83.0-100.0) fL MCH (28.0-33.3) pg MCHC (31.6-35.5) g/dL RDW (11.5-14.5) % Plt Count (140-400) K/mcL MPV (9.4-12.4) fL Immature Gran % (0-4) % Seg Neutrophils % % Band Neutrophils % (0-4) % Lymphocytes % % Monocytes % % Eosinophils % % Basophils % % Neutrophils # (1.6-8.9) K/mcL Lymphocytes # (0.6-4.6) K/mcL Monocytes # (0.0-1.3) K/mcL Eosinophils # (0.0-0.6) K/mcL Basophils # (0.0-0.2) K/mcL Nucleated RBCs/100 WBC (0) /100 WBC Hypersegmented Neuts (Not Present) Toxic Granulation (Not Present) Platelet Estimate (Normal) Large Platelets (Not Present) APTT (26.0-36.0) Seconds ABG pH 7.50 H (7.32-7.45) pH Units ABG pCO2 46 H (35-45) mmHg ABG pO2 51 L (85-104) mmHg ABG HCO3 35.9 H (21-27) mEQ/L ABG Total CO2 37.3 H (20-26) mEq/L ABG O2 Saturation 89 L (95-98) % ABG Base Excess 11.3 H (-2.0 to 3.0) mEq/L Respiration Rate Blood Gas Modality VCT Inspired O2 60.0 % Tidal Volume 360 cc PEEP 8.0 cm H2O Sodium 142 (136-145) mEq/L Potassium 3.8 (3.5-4.5) mEq/L Chloride 97 L (98-109) mEq/L Carbon Dioxide 29 (19-29) mEq/L BUN 75 H (7-20) mg/dL Creatinine 1.94 H (0.57-1.11) mg/dL Est GFR ( Amer) 32 L (> 60) Est GFR (Non-Af Amer) 26 L (> 60) BUN/Creatinine Ratio 39 H (6-26) Glucose 190 H (70-99) mg/dL POC Glucose 174 H (58-89) Calculated Osmolality 321 H (280-300) Lactic Acid (0.5-2.2) mmol/L Calcium 10.0 (8.6-10.8) mg/dL Ionized Calcium (1.15-1.35) mmol/L Phosphorus 5.0 H (2.3-4.7) mg/dL Magnesium (1.6-2.6) mg/dL Total Bilirubin (0.2-1.2) mg/dL Direct Bilirubin (0.0-0.5) mg/dL Indirect Bilirubin (0.0-1.2) mg/dL AST (5-34) Units/L ALT (0-55) Units/L Alkaline Phosphatase (38-126) Units/L Creatine Kinase (29-168) Units/L Troponin I (0-0.03) ng/mL Serum Total Protein (6.0-8.3) g/dL Albumin 2.6 L (3.5-5.0) g/dL Globulin (2.4-3.5) g/dL Albumin/Globulin Ratio (1.1-2.2) Triglycerides (< 150) mg/dL Lipase (8-78) Units/L TSH (0.350-4.840) mcIU/mL Free T4 (0.70-1.48) ng/dl Free T3 (1.71-3.71) pg/mL Urine Color (Yellow) Urine Clarity (Clear) Urine pH (5.0-8.0) pH Units Ur Specific [place] (1.010-1.025) Urine Protein (Neg-Trace) mg/dL Urine Glucose (UA) (Normal) mg/dL Urine Ketones (Negative) mg/dL Urine Blood (Negative) Urine Nitrite (Negative) Urine Bilirubin (Negative) Urine Urobilinogen (Normal) mg/dL Ur Leukocyte Esterase (Negative) Urine Microscopic RBC (0-3) per hpf Urine Microscopic WBC (0-3) per hpf Ur Squamous Epith Cells (None-Few) per lpf Urine Bacteria (None-Few) per hpf Hyaline Casts (None-Few) per lpf Chlamy pneumoniae PCR (Not Detect) Adenovirus (PCR) (Not Detect) B. pertussis DNA (PCR) (Not Detect) Coronavirus OC43 (PCR) (Not Detect) Coronavirus HKU1 (PCR) (Not Detect) Coronavirus 229E (PCR) (Not Detect) Coronavirus NL63 (PCR) (Not Detect) Human Metapneumovirus (Not Detect) Influenza A (H1) PCR (Not Detect) Influ A (H1N1/09) PCR (Not Detect) Influenza A (H3) PCR (Not Detect) Influenza A Untype (PCR) (Not Detect) Influenza Type B (PCR) (Not Detect) M.pneumoniae DNA (PCR) (Not Detect) Parainfluenza 1 (PCR) (Not Detect) Parainfluenza 2 (PCR) (Not Detect) Parainfluenza 3 (PCR) (Not Detect) Parainfluenza 4 (PCR) (Not Detect) RSV (PCR) (Not Detect) Entero/Rhino (PCR) (Not Detect) 11/14/16 11/15/16 11/15/16 Range/Units 23:39 04:10 05:19 WBC 8.0 (4.3-11.1) K/mcL RBC 5.41 H (3.82-4.97) M/mcL Hgb 15.2 (11.5-15.4) g/dL Hct 47.1 H (35.3-44.9) % MCV 87.1 (83.0-100.0) fL MCH 28.1 (28.0-33.3) pg MCHC 32.3 (31.6-35.5) g/dL RDW 15.9 H (11.5-14.5) % Plt Count 210 (140-400) K/mcL MPV 11.4 (9.4-12.4) fL Immature Gran % 0.5 (0-4) % Seg Neutrophils % 91.3 % Band Neutrophils % (0-4) % Lymphocytes % 1.4 % Monocytes % 6.8 % Eosinophils % 0.0 % Basophils % 0.0 % Neutrophils # 7.3 (1.6-8.9) K/mcL Lymphocytes # 0.1 L (0.6-4.6) K/mcL Monocytes # 0.5 (0.0-1.3) K/mcL Eosinophils # 0.0 (0.0-0.6) K/mcL Basophils # 0.0 (0.0-0.2) K/mcL Nucleated RBCs/100 WBC (0) /100 WBC Hypersegmented Neuts (Not Present) Toxic Granulation (Not Present) Platelet Estimate Normal (Normal) Large Platelets (Not Present) APTT (26.0-36.0) Seconds ABG pH 7.40 (7.32-7.45) pH Units ABG pCO2 62 H (35-45) mmHg ABG pO2 58 L (85-104) mmHg ABG HCO3 38.4 H (21-27) mEQ/L ABG Total CO2 40.3 H (20-26) mEq/L ABG O2 Saturation 90 L (95-98) % ABG Base Excess 11.2 H (-2.0 to 3.0) mEq/L Respiration Rate Blood Gas Modality [id number] Inspired O2 60.0 % Tidal Volume 360 cc PEEP 8.0 cm H2O Sodium (136-145) mEq/L Potassium (3.5-4.5) mEq/L Chloride (98-109) mEq/L Carbon Dioxide (19-29) mEq/L BUN (7-20) mg/dL Creatinine (0.57-1.11) mg/dL Est GFR ( Amer) (> 60) Est GFR (Non-Af Amer) (> 60) BUN/Creatinine Ratio (6-26) Glucose (70-99) mg/dL POC Glucose 183 H (58-89) Calculated Osmolality (280-300) Lactic Acid (0.5-2.2) mmol/L Calcium (8.6-10.8) mg/dL Ionized Calcium (1.15-1.35) mmol/L Phosphorus (2.3-4.7) mg/dL Magnesium (1.6-2.6) mg/dL Total Bilirubin (0.2-1.2) mg/dL Direct Bilirubin (0.0-0.5) mg/dL Indirect Bilirubin (0.0-1.2) mg/dL AST (5-34) Units/L ALT (0-55) Units/L Alkaline Phosphatase (38-126) Units/L Creatine Kinase (29-168) Units/L Troponin I (0-0.03) ng/mL Serum Total Protein (6.0-8.3) g/dL Albumin (3.5-5.0) g/dL Globulin (2.4-3.5) g/dL Albumin/Globulin Ratio (1.1-2.2) Triglycerides (< 150) mg/dL Lipase (8-78) Units/L TSH (0.350-4.840) mcIU/mL Free T4 (0.70-1.48) ng/dl Free T3 (1.71-3.71) pg/mL Urine Color (Yellow) Urine Clarity (Clear) Urine pH (5.0-8.0) pH Units Ur Specific [place] (1.010-1.025) Urine Protein (Neg-Trace) mg/dL Urine Glucose (UA) (Normal) mg/dL Urine Ketones (Negative) mg/dL Urine Blood (Negative) Urine Nitrite (Negative) Urine Bilirubin (Negative) Urine Urobilinogen (Normal) mg/dL Ur Leukocyte Esterase (Negative) Urine Microscopic RBC (0-3) per hpf Urine Microscopic WBC (0-3) per hpf Ur Squamous Epith Cells (None-Few) per lpf Urine Bacteria (None-Few) per hpf Hyaline Casts (None-Few) per lpf Chlamy pneumoniae PCR (Not Detect) Adenovirus (PCR) (Not Detect) B. pertussis DNA (PCR) (Not Detect) Coronavirus OC43 (PCR) (Not Detect) Coronavirus HKU1 (PCR) (Not Detect) Coronavirus 229E (PCR) (Not Detect) Coronavirus NL63 (PCR) (Not Detect) Human Metapneumovirus (Not Detect) Influenza A (H1) PCR (Not Detect) Influ A (H1N1/09) PCR (Not Detect) Influenza A (H3) PCR (Not Detect) Influenza A Untype (PCR) (Not Detect) Influenza Type B (PCR) (Not Detect) M.pneumoniae DNA (PCR) (Not Detect) Parainfluenza 1 (PCR) (Not Detect) Parainfluenza 2 (PCR) (Not Detect) Parainfluenza 3 (PCR) (Not Detect) Parainfluenza 4 (PCR) (Not Detect) RSV (PCR) (Not Detect) Entero/Rhino (PCR) (Not Detect) 11/15/16 11/15/16 11/15/16 Range/Units 05:19 05:19 11:54 WBC (4.3-11.1) K/mcL RBC (3.82-4.97) M/mcL Hgb (11.5-15.4) g/dL Hct (35.3-44.9) % MCV (83.0-100.0) fL MCH (28.0-33.3) pg MCHC (31.6-35.5) g/dL RDW (11.5-14.5) % Plt Count (140-400) K/mcL MPV (9.4-12.4) fL Immature Gran % (0-4) % Seg Neutrophils % % Band Neutrophils % (0-4) % Lymphocytes % % Monocytes % % Eosinophils % % Basophils % % Neutrophils # (1.6-8.9) K/mcL Lymphocytes # (0.6-4.6) K/mcL Monocytes # (0.0-1.3) K/mcL Eosinophils # (0.0-0.6) K/mcL Basophils # (0.0-0.2) K/mcL Nucleated RBCs/100 WBC (0) /100 WBC Hypersegmented Neuts (Not Present) Toxic Granulation (Not Present) Platelet Estimate (Normal) Large Platelets (Not Present) APTT (26.0-36.0) Seconds ABG pH (7.32-7.45) pH Units ABG pCO2 (35-45) mmHg ABG pO2 (85-104) mmHg ABG HCO3 (21-27) mEQ/L ABG Total CO2 (20-26) mEq/L ABG O2 Saturation (95-98) % ABG Base Excess (-2.0 to 3.0) mEq/L Respiration Rate Blood Gas Modality Inspired O2 % Tidal Volume cc PEEP cm H2O Sodium 139 140 (136-145) mEq/L Potassium 4.2 4.2 (3.5-4.5) mEq/L Chloride 96 L 96 L (98-109) mEq/L Carbon Dioxide 28 29 (19-29) mEq/L BUN 80 H 79 H (7-20) mg/dL Creatinine 1.96 H 1.97 H (0.57-1.11) mg/dL Est GFR ( Amer) 32 L 31 L (> 60) Est GFR (Non-Af Amer) 26 L 26 L (> 60) BUN/Creatinine Ratio 41 H 40 H (6-26) Glucose 170 H 170 H (70-99) mg/dL POC Glucose 164 H (58-89) Calculated Osmolality 316 H 318 H (280-300) Lactic Acid (0.5-2.2) mmol/L Calcium 9.8 9.8 (8.6-10.8) mg/dL Ionized Calcium 1.16 (1.15-1.35) mmol/L Phosphorus 5.4 H 5.4 H (2.3-4.7) mg/dL Magnesium 2.0 (1.6-2.6) mg/dL Total Bilirubin (0.2-1.2) mg/dL Direct Bilirubin (0.0-0.5) mg/dL Indirect Bilirubin (0.0-1.2) mg/dL AST (5-34) Units/L ALT (0-55) Units/L Alkaline Phosphatase (38-126) Units/L Creatine Kinase (29-168) Units/L Troponin I (0-0.03) ng/mL Serum Total Protein (6.0-8.3) g/dL Albumin 2.6 L (3.5-5.0) g/dL Globulin (2.4-3.5) g/dL Albumin/Globulin Ratio (1.1-2.2) Triglycerides (< 150) mg/dL Lipase (8-78) Units/L TSH (0.350-4.840) mcIU/mL Free T4 (0.70-1.48) ng/dl Free T3 (1.71-3.71) pg/mL Urine Color (Yellow) Urine Clarity (Clear) Urine pH (5.0-8.0) pH Units Ur Specific [place] (1.010-1.025) Urine Protein (Neg-Trace) mg/dL Urine Glucose (UA) (Normal) mg/dL Urine Ketones (Negative) mg/dL Urine Blood (Negative) Urine Nitrite (Negative) Urine Bilirubin (Negative) Urine Urobilinogen (Normal) mg/dL Ur Leukocyte Esterase (Negative) Urine Microscopic RBC (0-3) per hpf Urine Microscopic WBC (0-3) per hpf Ur Squamous Epith Cells (None-Few) per lpf Urine Bacteria (None-Few) per hpf Hyaline Casts (None-Few) per lpf Chlamy pneumoniae PCR (Not Detect) Adenovirus (PCR) (Not Detect) B. pertussis DNA (PCR) (Not Detect) Coronavirus OC43 (PCR) (Not Detect) Coronavirus HKU1 (PCR) (Not Detect) Coronavirus 229E (PCR) (Not Detect) Coronavirus NL63 (PCR) (Not Detect) Human Metapneumovirus (Not Detect) Influenza A (H1) PCR (Not Detect) Influ A (H1N1/09) PCR (Not Detect) Influenza A (H3) PCR (Not Detect) Influenza A Untype (PCR) (Not Detect) Influenza Type B (PCR) (Not Detect) M.pneumoniae DNA (PCR) (Not Detect) Parainfluenza 1 (PCR) (Not Detect) Parainfluenza 2 (PCR) (Not Detect) Parainfluenza 3 (PCR) (Not Detect) Parainfluenza 4 (PCR) (Not Detect) RSV (PCR) (Not Detect) Entero/Rhino (PCR) (Not Detect) 11/15/16 11/15/16 11/15/16 Range/Units 17:10 18:34 23:31 WBC (4.3-11.1) K/mcL RBC (3.82-4.97) M/mcL Hgb (11.5-15.4) g/dL Hct (35.3-44.9) % MCV (83.0-100.0) fL MCH (28.0-33.3) pg MCHC (31.6-35.5) g/dL RDW (11.5-14.5) % Plt Count (140-400) K/mcL MPV (9.4-12.4) fL Immature Gran % (0-4) % Seg Neutrophils % % Band Neutrophils % (0-4) % Lymphocytes % % Monocytes % % Eosinophils % % Basophils % % Neutrophils # (1.6-8.9) K/mcL Lymphocytes # (0.6-4.6) K/mcL Monocytes # (0.0-1.3) K/mcL Eosinophils # (0.0-0.6) K/mcL Basophils # (0.0-0.2) K/mcL Nucleated RBCs/100 WBC (0) /100 WBC Hypersegmented Neuts (Not Present) Toxic Granulation (Not Present) Platelet Estimate (Normal) Large Platelets (Not Present) APTT (26.0-36.0) Seconds ABG pH (7.32-7.45) pH Units ABG pCO2 (35-45) mmHg ABG pO2 (85-104) mmHg ABG HCO3 (21-27) mEQ/L ABG Total CO2 (20-26) mEq/L ABG O2 Saturation (95-98) % ABG Base Excess (-2.0 to 3.0) mEq/L Respiration Rate Blood Gas Modality Inspired O2 % Tidal Volume cc PEEP cm H2O Sodium 142 (136-145) mEq/L Potassium 4.0 (3.5-4.5) mEq/L Chloride 96 L (98-109) mEq/L Carbon Dioxide 30 H (19-29) mEq/L BUN 90 H (7-20) mg/dL Creatinine 2.05 H (0.57-1.11) mg/dL Est GFR ( Amer) 30 L (> 60) Est GFR (Non-Af Amer) 25 L (> 60) BUN/Creatinine Ratio 44 H (6-26) Glucose 193 H (70-99) mg/dL POC Glucose 173 H 166 H (58-89) Calculated Osmolality 327 H (280-300) Lactic Acid (0.5-2.2) mmol/L Calcium 9.4 (8.6-10.8) mg/dL Ionized Calcium (1.15-1.35) mmol/L Phosphorus 5.5 H (2.3-4.7) mg/dL Magnesium (1.6-2.6) mg/dL Total Bilirubin (0.2-1.2) mg/dL Direct Bilirubin (0.0-0.5) mg/dL Indirect Bilirubin (0.0-1.2) mg/dL AST (5-34) Units/L ALT (0-55) Units/L Alkaline Phosphatase (38-126) Units/L Creatine Kinase (29-168) Units/L Troponin I (0-0.03) ng/mL Serum Total Protein (6.0-8.3) g/dL Albumin 2.5 L (3.5-5.0) g/dL Globulin (2.4-3.5) g/dL Albumin/Globulin Ratio (1.1-2.2) Triglycerides (< 150) mg/dL Lipase (8-78) Units/L TSH (0.350-4.840) mcIU/mL Free T4 (0.70-1.48) ng/dl Free T3 (1.71-3.71) pg/mL Urine Color (Yellow) Urine Clarity (Clear) Urine pH (5.0-8.0) pH Units Ur Specific [place] (1.010-1.025) Urine Protein (Neg-Trace) mg/dL Urine Glucose (UA) (Normal) mg/dL Urine Ketones (Negative) mg/dL Urine Blood (Negative) Urine Nitrite (Negative) Urine Bilirubin (Negative) Urine Urobilinogen (Normal) mg/dL Ur Leukocyte Esterase (Negative) Urine Microscopic RBC (0-3) per hpf Urine Microscopic WBC (0-3) per hpf Ur Squamous Epith Cells (None-Few) per lpf Urine Bacteria (None-Few) per hpf Hyaline Casts (None-Few) per lpf Chlamy pneumoniae PCR (Not Detect) Adenovirus (PCR) (Not Detect) B. pertussis DNA (PCR) (Not Detect) Coronavirus OC43 (PCR) (Not Detect) Coronavirus HKU1 (PCR) (Not Detect) Coronavirus 229E (PCR) (Not Detect) Coronavirus NL63 (PCR) (Not Detect) Human Metapneumovirus (Not Detect) Influenza A (H1) PCR (Not Detect) Influ A (H1N1/09) PCR (Not Detect) Influenza A (H3) PCR (Not Detect) Influenza A Untype (PCR) (Not Detect) Influenza Type B (PCR) (Not Detect) M.pneumoniae DNA (PCR) (Not Detect) Parainfluenza 1 (PCR) (Not Detect) Parainfluenza 2 (PCR) (Not Detect) Parainfluenza 3 (PCR) (Not Detect) Parainfluenza 4 (PCR) (Not Detect) RSV (PCR) (Not Detect) Entero/Rhino (PCR) (Not Detect) 11/16/16 11/16/16 11/16/16 Range/Units 03:25 03:25 04:50 WBC 9.1 (4.3-11.1) K/mcL RBC 5.03 H (3.82-4.97) M/mcL Hgb 14.3 (11.5-15.4) g/dL Hct 44.5 (35.3-44.9) % MCV 88.5 (83.0-100.0) fL MCH 28.4 (28.0-33.3) pg MCHC 32.1 (31.6-35.5) g/dL RDW 15.9 H (11.5-14.5) % Plt Count 191 (140-400) K/mcL MPV 11.4 (9.4-12.4) fL Immature Gran % (0-4) % Seg Neutrophils % 90.0 % Band Neutrophils % 2.0 (0-4) % Lymphocytes % 2.0 % Monocytes % 6.0 % Eosinophils % % Basophils % % Neutrophils # 8.4 (1.6-8.9) K/mcL Lymphocytes # 0.2 L (0.6-4.6) K/mcL Monocytes # 0.6 (0.0-1.3) K/mcL Eosinophils # (0.0-0.6) K/mcL Basophils # (0.0-0.2) K/mcL Nucleated RBCs/100 WBC (0) /100 WBC Hypersegmented Neuts (Not Present) Toxic Granulation (Not Present) Platelet Estimate Normal (Normal) Large Platelets Present A (Not Present) APTT (26.0-36.0) Seconds ABG pH 7.33 (7.32-7.45) pH Units ABG pCO2 75 H* (35-45) mmHg ABG pO2 66 L (85-104) mmHg ABG HCO3 39.5 H (21-27) mEQ/L ABG Total CO2 41.8 H (20-26) mEq/L ABG O2 Saturation 91 L (95-98) % ABG Base Excess 9.9 H (-2.0 to 3.0) mEq/L Respiration Rate Blood Gas Modality VC+ Inspired O2 50 % Tidal Volume cc PEEP cm H2O Sodium 141 (136-145) mEq/L Potassium 4.2 (3.5-4.5) mEq/L Chloride 96 L (98-109) mEq/L Carbon Dioxide 30 H (19-29) mEq/L BUN 100 H (7-20) mg/dL Creatinine 2.39 H (0.57-1.11) mg/dL Est GFR ( Amer) 25 L (> 60) Est GFR (Non-Af Amer) 21 L (> 60) BUN/Creatinine Ratio 42 H (6-26) Glucose 190 H (70-99) mg/dL POC Glucose (58-89) Calculated Osmolality 328 H (280-300) Lactic Acid (0.5-2.2) mmol/L Calcium 9.3 (8.6-10.8) mg/dL Ionized Calcium 1.14 L (1.15-1.35) mmol/L Phosphorus 7.1 H (2.3-4.7) mg/dL Magnesium 1.8 (1.6-2.6) mg/dL Total Bilirubin (0.2-1.2) mg/dL Direct Bilirubin (0.0-0.5) mg/dL Indirect Bilirubin (0.0-1.2) mg/dL AST (5-34) Units/L ALT (0-55) Units/L Alkaline Phosphatase (38-126) Units/L Creatine Kinase (29-168) Units/L Troponin I (0-0.03) ng/mL Serum Total Protein (6.0-8.3) g/dL Albumin (3.5-5.0) g/dL Globulin (2.4-3.5) g/dL Albumin/Globulin Ratio (1.1-2.2) Triglycerides (< 150) mg/dL Lipase (8-78) Units/L TSH (0.350-4.840) mcIU/mL Free T4 (0.70-1.48) ng/dl Free T3 (1.71-3.71) pg/mL Urine Color (Yellow) Urine Clarity (Clear) Urine pH (5.0-8.0) pH Units Ur Specific [place] (1.010-1.025) Urine Protein (Neg-Trace) mg/dL Urine Glucose (UA) (Normal) mg/dL Urine Ketones (Negative) mg/dL Urine Blood (Negative) Urine Nitrite (Negative) Urine Bilirubin (Negative) Urine Urobilinogen (Normal) mg/dL Ur Leukocyte Esterase (Negative) Urine Microscopic RBC (0-3) per hpf Urine Microscopic WBC (0-3) per hpf Ur Squamous Epith Cells (None-Few) per lpf Urine Bacteria (None-Few) per hpf Hyaline Casts (None-Few) per lpf Chlamy pneumoniae PCR (Not Detect) Adenovirus (PCR) (Not Detect) B. pertussis DNA (PCR) (Not Detect) Coronavirus OC43 (PCR) (Not Detect) Coronavirus HKU1 (PCR) (Not Detect) Coronavirus 229E (PCR) (Not Detect) Coronavirus NL63 (PCR) (Not Detect) Human Metapneumovirus (Not Detect) Influenza A (H1) PCR (Not Detect) Influ A (H1N1/09) PCR (Not Detect) Influenza A (H3) PCR (Not Detect) Influenza A Untype (PCR) (Not Detect) Influenza Type B (PCR) (Not Detect) M.pneumoniae DNA (PCR) (Not Detect) Parainfluenza 1 (PCR) (Not Detect) Parainfluenza 2 (PCR) (Not Detect) Parainfluenza 3 (PCR) (Not Detect) Parainfluenza 4 (PCR) (Not Detect) RSV (PCR) (Not Detect) Entero/Rhino (PCR) (Not Detect) 11/16/16 11/16/16 11/16/16 Range/Units 04:52 11:17 17:11 WBC (4.3-11.1) K/mcL RBC (3.82-4.97) M/mcL Hgb (11.5-15.4) g/dL Hct (35.3-44.9) % MCV (83.0-100.0) fL MCH (28.0-33.3) pg MCHC (31.6-35.5) g/dL RDW (11.5-14.5) % Plt Count (140-400) K/mcL MPV (9.4-12.4) fL Immature Gran % (0-4) % Seg Neutrophils % % Band Neutrophils % (0-4) % Lymphocytes % % Monocytes % % Eosinophils % % Basophils % % Neutrophils # (1.6-8.9) K/mcL Lymphocytes # (0.6-4.6) K/mcL Monocytes # (0.0-1.3) K/mcL Eosinophils # (0.0-0.6) K/mcL Basophils # (0.0-0.2) K/mcL Nucleated RBCs/100 WBC (0) /100 WBC Hypersegmented Neuts (Not Present) Toxic Granulation (Not Present) Platelet Estimate (Normal) Large Platelets (Not Present) APTT (26.0-36.0) Seconds ABG pH (7.32-7.45) pH Units ABG pCO2 (35-45) mmHg ABG pO2 (85-104) mmHg ABG HCO3 (21-27) mEQ/L ABG Total CO2 (20-26) mEq/L ABG O2 Saturation (95-98) % ABG Base Excess (-2.0 to 3.0) mEq/L Respiration Rate Blood Gas Modality Inspired O2 % Tidal Volume cc PEEP cm H2O Sodium (136-145) mEq/L Potassium (3.5-4.5) mEq/L Chloride (98-109) mEq/L Carbon Dioxide (19-29) mEq/L BUN (7-20) mg/dL Creatinine (0.57-1.11) mg/dL Est GFR ( Amer) (> 60) Est GFR (Non-Af Amer) (> 60) BUN/Creatinine Ratio (6-26) Glucose (70-99) mg/dL POC Glucose 183 H 156 H 164 H (58-89) Calculated Osmolality (280-300) Lactic Acid (0.5-2.2) mmol/L Calcium (8.6-10.8) mg/dL Ionized Calcium (1.15-1.35) mmol/L Phosphorus (2.3-4.7) mg/dL Magnesium (1.6-2.6) mg/dL Total Bilirubin (0.2-1.2) mg/dL Direct Bilirubin (0.0-0.5) mg/dL Indirect Bilirubin (0.0-1.2) mg/dL AST (5-34) Units/L ALT (0-55) Units/L Alkaline Phosphatase (38-126) Units/L Creatine Kinase (29-168) Units/L Troponin I (0-0.03) ng/mL Serum Total Protein (6.0-8.3) g/dL Albumin (3.5-5.0) g/dL Globulin (2.4-3.5) g/dL Albumin/Globulin Ratio (1.1-2.2) Triglycerides (< 150) mg/dL Lipase (8-78) Units/L TSH (0.350-4.840) mcIU/mL Free T4 (0.70-1.48) ng/dl Free T3 (1.71-3.71) pg/mL Urine Color (Yellow) Urine Clarity (Clear) Urine pH (5.0-8.0) pH Units Ur Specific [place] (1.010-1.025) Urine Protein (Neg-Trace) mg/dL Urine Glucose (UA) (Normal) mg/dL Urine Ketones (Negative) mg/dL Urine Blood (Negative) Urine Nitrite (Negative) Urine Bilirubin (Negative) Urine Urobilinogen (Normal) mg/dL Ur Leukocyte Esterase (Negative) Urine Microscopic RBC (0-3) per hpf Urine Microscopic WBC (0-3) per hpf Ur Squamous Epith Cells (None-Few) per lpf Urine Bacteria (None-Few) per hpf Hyaline Casts (None-Few) per lpf Chlamy pneumoniae PCR (Not Detect) Adenovirus (PCR) (Not Detect) B. pertussis DNA (PCR) (Not Detect) Coronavirus OC43 (PCR) (Not Detect) Coronavirus HKU1 (PCR) (Not Detect) Coronavirus 229E (PCR) (Not Detect) Coronavirus NL63 (PCR) (Not Detect) Human Metapneumovirus (Not Detect) Influenza A (H1) PCR (Not Detect) Influ A (H1N1/09) PCR (Not Detect) Influenza A (H3) PCR (Not Detect) Influenza A Untype (PCR) (Not Detect) Influenza Type B (PCR) (Not Detect) M.pneumoniae DNA (PCR) (Not Detect) Parainfluenza 1 (PCR) (Not Detect) Parainfluenza 2 (PCR) (Not Detect) Parainfluenza 3 (PCR) (Not Detect) Parainfluenza 4 (PCR) (Not Detect) RSV (PCR) (Not Detect) Entero/Rhino (PCR) (Not Detect) 11/16/16 11/17/16 11/17/16 Range/Units 23:44 04:11 04:11 WBC 8.7 (4.3-11.1) K/mcL RBC 4.67 (3.82-4.97) M/mcL Hgb 13.0 (11.5-15.4) g/dL Hct 41.5 (35.3-44.9) % MCV 88.9 (83.0-100.0) fL MCH 27.8 L (28.0-33.3) pg MCHC 31.3 L (31.6-35.5) g/dL RDW 15.9 H (11.5-14.5) % Plt Count 166 (140-400) K/mcL MPV 11.7 (9.4-12.4) fL Immature Gran % 1.3 (0-4) % Seg Neutrophils % 84.0 % Band Neutrophils % (0-4) % Lymphocytes % 3.4 % Monocytes % 11.1 % Eosinophils % 0.1 % Basophils % 0.1 % Neutrophils # 7.3 (1.6-8.9) K/mcL Lymphocytes # 0.3 L (0.6-4.6) K/mcL Monocytes # 1.0 (0.0-1.3) K/mcL Eosinophils # 0.0 (0.0-0.6) K/mcL Basophils # 0.0 (0.0-0.2) K/mcL Nucleated RBCs/100 WBC (0) /100 WBC Hypersegmented Neuts (Not Present) Toxic Granulation (Not Present) Platelet Estimate (Normal) Large Platelets (Not Present) APTT (26.0-36.0) Seconds ABG pH (7.32-7.45) pH Units ABG pCO2 (35-45) mmHg ABG pO2 (85-104) mmHg ABG HCO3 (21-27) mEQ/L ABG Total CO2 (20-26) mEq/L ABG O2 Saturation (95-98) % ABG Base Excess (-2.0 to 3.0) mEq/L Respiration Rate Blood Gas Modality Inspired O2 % Tidal Volume cc PEEP cm H2O Sodium 140 (136-145) mEq/L Potassium 4.2 (3.5-4.5) mEq/L Chloride 97 L (98-109) mEq/L Carbon Dioxide 31 H (19-29) mEq/L BUN 116 H (7-20) mg/dL Creatinine 3.10 H (0.57-1.11) mg/dL Est GFR ( Amer) 19 L (> 60) Est GFR (Non-Af Amer) 15 L (> 60) BUN/Creatinine Ratio 37 H (6-26) Glucose 148 H (70-99) mg/dL POC Glucose 155 H (58-89) Calculated Osmolality 330 H (280-300) Lactic Acid (0.5-2.2) mmol/L Calcium 8.8 (8.6-10.8) mg/dL Ionized Calcium (1.15-1.35) mmol/L Phosphorus 7.7 H (2.3-4.7) mg/dL Magnesium 2.6 (1.6-2.6) mg/dL Total Bilirubin 0.6 (0.2-1.2) mg/dL Direct Bilirubin (0.0-0.5) mg/dL Indirect Bilirubin (0.0-1.2) mg/dL AST 11 (5-34) Units/L ALT 31 (0-55) Units/L Alkaline Phosphatase 46 (38-126) Units/L Creatine Kinase (29-168) Units/L Troponin I (0-0.03) ng/mL Serum Total Protein 5.3 L (6.0-8.3) g/dL Albumin 2.4 L (3.5-5.0) g/dL Globulin 2.9 (2.4-3.5) g/dL Albumin/Globulin Ratio 0.8 L (1.1-2.2) Triglycerides (< 150) mg/dL Lipase (8-78) Units/L TSH (0.350-4.840) mcIU/mL Free T4 (0.70-1.48) ng/dl Free T3 (1.71-3.71) pg/mL Urine Color (Yellow) Urine Clarity (Clear) Urine pH (5.0-8.0) pH Units Ur Specific [place] (1.010-1.025) Urine Protein (Neg-Trace) mg/dL Urine Glucose (UA) (Normal) mg/dL Urine Ketones (Negative) mg/dL Urine Blood (Negative) Urine Nitrite (Negative) Urine Bilirubin (Negative) Urine Urobilinogen (Normal) mg/dL Ur Leukocyte Esterase (Negative) Urine Microscopic RBC (0-3) per hpf Urine Microscopic WBC (0-3) per hpf Ur Squamous Epith Cells (None-Few) per lpf Urine Bacteria (None-Few) per hpf Hyaline Casts (None-Few) per lpf Chlamy pneumoniae PCR (Not Detect) Adenovirus (PCR) (Not Detect) B. pertussis DNA (PCR) (Not Detect) Coronavirus OC43 (PCR) (Not Detect) Coronavirus HKU1 (PCR) (Not Detect) Coronavirus 229E (PCR) (Not Detect) Coronavirus NL63 (PCR) (Not Detect) Human Metapneumovirus (Not Detect) Influenza A (H1) PCR (Not Detect) Influ A (H1N1/09) PCR (Not Detect) Influenza A (H3) PCR (Not Detect) Influenza A Untype (PCR) (Not Detect) Influenza Type B (PCR) (Not Detect) M.pneumoniae DNA (PCR) (Not Detect) Parainfluenza 1 (PCR) (Not Detect) Parainfluenza 2 (PCR) (Not Detect) Parainfluenza 3 (PCR) (Not Detect) Parainfluenza 4 (PCR) (Not Detect) RSV (PCR) (Not Detect) Entero/Rhino (PCR) (Not Detect) 11/17/16 11/17/16 11/17/16 Range/Units 04:17 04:30 11:54 WBC (4.3-11.1) K/mcL RBC (3.82-4.97) M/mcL Hgb (11.5-15.4) g/dL Hct (35.3-44.9) % MCV (83.0-100.0) fL MCH (28.0-33.3) pg MCHC (31.6-35.5) g/dL RDW (11.5-14.5) % Plt Count (140-400) K/mcL MPV (9.4-12.4) fL Immature Gran % (0-4) % Seg Neutrophils % % Band Neutrophils % (0-4) % Lymphocytes % % Monocytes % % Eosinophils % % Basophils % % Neutrophils # (1.6-8.9) K/mcL Lymphocytes # (0.6-4.6) K/mcL Monocytes # (0.0-1.3) K/mcL Eosinophils # (0.0-0.6) K/mcL Basophils # (0.0-0.2) K/mcL Nucleated RBCs/100 WBC (0) /100 WBC Hypersegmented Neuts (Not Present) Toxic Granulation (Not Present) Platelet Estimate (Normal) Large Platelets (Not Present) APTT (26.0-36.0) Seconds ABG pH 7.32 (7.32-7.45) pH Units ABG pCO2 72 H* (35-45) mmHg ABG pO2 82 L (85-104) mmHg ABG HCO3 37.1 H (21-27) mEQ/L ABG Total CO2 39.3 H (20-26) mEq/L ABG O2 Saturation 95 (95-98) % ABG Base Excess 8.3 H (-2.0 to 3.0) mEq/L Respiration Rate Blood Gas Modality VC Inspired O2 50 % Tidal Volume cc PEEP cm H2O Sodium (136-145) mEq/L Potassium (3.5-4.5) mEq/L Chloride (98-109) mEq/L Carbon Dioxide (19-29) mEq/L BUN (7-20) mg/dL Creatinine (0.57-1.11) mg/dL Est GFR ( Amer) (> 60) Est GFR (Non-Af Amer) (> 60) BUN/Creatinine Ratio (6-26) Glucose (70-99) mg/dL POC Glucose 131 H (58-89) Calculated Osmolality (280-300) Lactic Acid (0.5-2.2) mmol/L Calcium (8.6-10.8) mg/dL Ionized Calcium 1.11 L (1.15-1.35) mmol/L Phosphorus (2.3-4.7) mg/dL Magnesium (1.6-2.6) mg/dL Total Bilirubin (0.2-1.2) mg/dL Direct Bilirubin (0.0-0.5) mg/dL Indirect Bilirubin (0.0-1.2) mg/dL AST (5-34) Units/L ALT (0-55) Units/L Alkaline Phosphatase (38-126) Units/L Creatine Kinase (29-168) Units/L Troponin I (0-0.03) ng/mL Serum Total Protein (6.0-8.3) g/dL Albumin (3.5-5.0) g/dL Globulin (2.4-3.5) g/dL Albumin/Globulin Ratio (1.1-2.2) Triglycerides (< 150) mg/dL Lipase (8-78) Units/L TSH (0.350-4.840) mcIU/mL Free T4 (0.70-1.48) ng/dl Free T3 (1.71-3.71) pg/mL Urine Color (Yellow) Urine Clarity (Clear) Urine pH (5.0-8.0) pH Units Ur Specific [place] (1.010-1.025) Urine Protein (Neg-Trace) mg/dL Urine Glucose (UA) (Normal) mg/dL Urine Ketones (Negative) mg/dL Urine Blood (Negative) Urine Nitrite (Negative) Urine Bilirubin (Negative) Urine Urobilinogen (Normal) mg/dL Ur Leukocyte Esterase (Negative) Urine Microscopic RBC (0-3) per hpf Urine Microscopic WBC (0-3) per hpf Ur Squamous Epith Cells (None-Few) per lpf Urine Bacteria (None-Few) per hpf Hyaline Casts (None-Few) per lpf Chlamy pneumoniae PCR (Not Detect) Adenovirus (PCR) (Not Detect) B. pertussis DNA (PCR) (Not Detect) Coronavirus OC43 (PCR) (Not Detect) Coronavirus HKU1 (PCR) (Not Detect) Coronavirus 229E (PCR) (Not Detect) Coronavirus NL63 (PCR) (Not Detect) Human Metapneumovirus (Not Detect) Influenza A (H1) PCR (Not Detect) Influ A (H1N1/09) PCR (Not Detect) Influenza A (H3) PCR (Not Detect) Influenza A Untype (PCR) (Not Detect) Influenza Type B (PCR) (Not Detect) M.pneumoniae DNA (PCR) (Not Detect) Parainfluenza 1 (PCR) (Not Detect) Parainfluenza 2 (PCR) (Not Detect) Parainfluenza 3 (PCR) (Not Detect) Parainfluenza 4 (PCR) (Not Detect) RSV (PCR) (Not Detect) Entero/Rhino (PCR) (Not Detect) 11/17/16 11/17/16 11/18/16 Range/Units 17:29 23:39 03:57 WBC 8.5 (4.3-11.1) K/mcL RBC 4.62 (3.82-4.97) M/mcL Hgb 13.0 (11.5-15.4) g/dL Hct 41.1 (35.3-44.9) % MCV 89.0 (83.0-100.0) fL MCH 28.1 (28.0-33.3) pg MCHC 31.6 (31.6-35.5) g/dL RDW 15.9 H (11.5-14.5) % Plt Count 150 (140-400) K/mcL MPV 12.1 (9.4-12.4) fL Immature Gran % 0.7 (0-4) % Seg Neutrophils % 81.0 % Band Neutrophils % (0-4) % Lymphocytes % 8.0 % Monocytes % 9.4 % Eosinophils % 0.8 % Basophils % 0.1 % Neutrophils # 6.9 (1.6-8.9) K/mcL Lymphocytes # 0.7 (0.6-4.6) K/mcL Monocytes # 0.8 (0.0-1.3) K/mcL Eosinophils # 0.1 (0.0-0.6) K/mcL Basophils # 0.0 (0.0-0.2) K/mcL Nucleated RBCs/100 WBC (0) /100 WBC Hypersegmented Neuts (Not Present) Toxic Granulation (Not Present) Platelet Estimate (Normal) Large Platelets (Not Present) APTT (26.0-36.0) Seconds ABG pH (7.32-7.45) pH Units ABG pCO2 (35-45) mmHg ABG pO2 (85-104) mmHg ABG HCO3 (21-27) mEQ/L ABG Total CO2 (20-26) mEq/L ABG O2 Saturation (95-98) % ABG Base Excess (-2.0 to 3.0) mEq/L Respiration Rate Blood Gas Modality Inspired O2 % Tidal Volume cc PEEP cm H2O Sodium (136-145) mEq/L Potassium (3.5-4.5) mEq/L Chloride (98-109) mEq/L Carbon Dioxide (19-29) mEq/L BUN (7-20) mg/dL Creatinine (0.57-1.11) mg/dL Est GFR ( Amer) (> 60) Est GFR (Non-Af Amer) (> 60) BUN/Creatinine Ratio (6-26) Glucose (70-99) mg/dL POC Glucose 187 H 126 H (58-89) Calculated Osmolality (280-300) Lactic Acid (0.5-2.2) mmol/L Calcium (8.6-10.8) mg/dL Ionized Calcium (1.15-1.35) mmol/L Phosphorus (2.3-4.7) mg/dL Magnesium (1.6-2.6) mg/dL Total Bilirubin (0.2-1.2) mg/dL Direct Bilirubin (0.0-0.5) mg/dL Indirect Bilirubin (0.0-1.2) mg/dL AST (5-34) Units/L ALT (0-55) Units/L Alkaline Phosphatase (38-126) Units/L Creatine Kinase (29-168) Units/L Troponin I (0-0.03) ng/mL Serum Total Protein (6.0-8.3) g/dL Albumin (3.5-5.0) g/dL Globulin (2.4-3.5) g/dL Albumin/Globulin Ratio (1.1-2.2) Triglycerides (< 150) mg/dL Lipase (8-78) Units/L TSH (0.350-4.840) mcIU/mL Free T4 (0.70-1.48) ng/dl Free T3 (1.71-3.71) pg/mL Urine Color (Yellow) Urine Clarity (Clear) Urine pH (5.0-8.0) pH Units Ur Specific [place] (1.010-1.025) Urine Protein (Neg-Trace) mg/dL Urine Glucose (UA) (Normal) mg/dL Urine Ketones (Negative) mg/dL Urine Blood (Negative) Urine Nitrite (Negative) Urine Bilirubin (Negative) Urine Urobilinogen (Normal) mg/dL Ur Leukocyte Esterase (Negative) Urine Microscopic RBC (0-3) per hpf Urine Microscopic WBC (0-3) per hpf Ur Squamous Epith Cells (None-Few) per lpf Urine Bacteria (None-Few) per hpf Hyaline Casts (None-Few) per lpf Chlamy pneumoniae PCR (Not Detect) Adenovirus (PCR) (Not Detect) B. pertussis DNA (PCR) (Not Detect) Coronavirus OC43 (PCR) (Not Detect) Coronavirus HKU1 (PCR) (Not Detect) Coronavirus 229E (PCR) (Not Detect) Coronavirus NL63 (PCR) (Not Detect) Human Metapneumovirus (Not Detect) Influenza A (H1) PCR (Not Detect) Influ A (H1N1/09) PCR (Not Detect) Influenza A (H3) PCR (Not Detect) Influenza A Untype (PCR) (Not Detect) Influenza Type B (PCR) (Not Detect) M.pneumoniae DNA (PCR) (Not Detect) Parainfluenza 1 (PCR) (Not Detect) Parainfluenza 2 (PCR) (Not Detect) Parainfluenza 3 (PCR) (Not Detect) Parainfluenza 4 (PCR) (Not Detect) RSV (PCR) (Not Detect) Entero/Rhino (PCR) (Not Detect) 11/18/16 11/18/16 11/18/16 Range/Units 03:57 04:08 05:10 WBC (4.3-11.1) K/mcL RBC (3.82-4.97) M/mcL Hgb (11.5-15.4) g/dL Hct (35.3-44.9) % MCV (83.0-100.0) fL MCH (28.0-33.3) pg MCHC (31.6-35.5) g/dL RDW (11.5-14.5) % Plt Count (140-400) K/mcL MPV (9.4-12.4) fL Immature Gran % (0-4) % Seg Neutrophils % % Band Neutrophils % (0-4) % Lymphocytes % % Monocytes % % Eosinophils % % Basophils % % Neutrophils # (1.6-8.9) K/mcL Lymphocytes # (0.6-4.6) K/mcL Monocytes # (0.0-1.3) K/mcL Eosinophils # (0.0-0.6) K/mcL Basophils # (0.0-0.2) K/mcL Nucleated RBCs/100 WBC (0) /100 WBC Hypersegmented Neuts (Not Present) Toxic Granulation (Not Present) Platelet Estimate (Normal) Large Platelets (Not Present) APTT (26.0-36.0) Seconds ABG pH 7.28 L (7.32-7.45) pH Units ABG pCO2 83 H* (35-45) mmHg ABG pO2 77 L (85-104) mmHg ABG HCO3 39.0 H (21-27) mEQ/L ABG Total CO2 41.5 H (20-26) mEq/L ABG O2 Saturation 93 L (95-98) % ABG Base Excess 8.9 H (-2.0 to 3.0) mEq/L Respiration Rate Blood Gas Modality vct Inspired O2 40 % Tidal Volume cc PEEP cm H2O Sodium 143 (136-145) mEq/L Potassium 3.8 (3.5-4.5) mEq/L Chloride 98 (98-109) mEq/L Carbon Dioxide 30 H (19-29) mEq/L BUN 130 H (7-20) mg/dL Creatinine 3.03 H (0.57-1.11) mg/dL Est GFR ( Amer) 19 L (> 60) Est GFR (Non-Af Amer) 16 L (> 60) BUN/Creatinine Ratio 43 H (6-26) Glucose 128 H (70-99) mg/dL POC Glucose 118 H (58-89) Calculated Osmolality 340 H (280-300) Lactic Acid (0.5-2.2) mmol/L Calcium 8.4 L (8.6-10.8) mg/dL Ionized Calcium (1.15-1.35) mmol/L Phosphorus (2.3-4.7) mg/dL Magnesium (1.6-2.6) mg/dL Total Bilirubin 0.6 (0.2-1.2) mg/dL Direct Bilirubin (0.0-0.5) mg/dL Indirect Bilirubin (0.0-1.2) mg/dL AST 11 (5-34) Units/L ALT 31 (0-55) Units/L Alkaline Phosphatase 49 (38-126) Units/L Creatine Kinase (29-168) Units/L Troponin I (0-0.03) ng/mL Serum Total Protein 5.4 L (6.0-8.3) g/dL Albumin 2.5 L (3.5-5.0) g/dL Globulin 2.9 (2.4-3.5) g/dL Albumin/Globulin Ratio 0.9 L (1.1-2.2) Triglycerides (< 150) mg/dL Lipase (8-78) Units/L TSH (0.350-4.840) mcIU/mL Free T4 (0.70-1.48) ng/dl Free T3 (1.71-3.71) pg/mL Urine Color (Yellow) Urine Clarity (Clear) Urine pH (5.0-8.0) pH Units Ur Specific [place] (1.010-1.025) Urine Protein (Neg-Trace) mg/dL Urine Glucose (UA) (Normal) mg/dL Urine Ketones (Negative) mg/dL Urine Blood (Negative) Urine Nitrite (Negative) Urine Bilirubin (Negative) Urine Urobilinogen (Normal) mg/dL Ur Leukocyte Esterase (Negative) Urine Microscopic RBC (0-3) per hpf Urine Microscopic WBC (0-3) per hpf Ur Squamous Epith Cells (None-Few) per lpf Urine Bacteria (None-Few) per hpf Hyaline Casts (None-Few) per lpf Chlamy pneumoniae PCR (Not Detect) Adenovirus (PCR) (Not Detect) B. pertussis DNA (PCR) (Not Detect) Coronavirus OC43 (PCR) (Not Detect) Coronavirus HKU1 (PCR) (Not Detect) Coronavirus 229E (PCR) (Not Detect) Coronavirus NL63 (PCR) (Not Detect) Human Metapneumovirus (Not Detect) Influenza A (H1) PCR (Not Detect) Influ A (H1N1/09) PCR (Not Detect) Influenza A (H3) PCR (Not Detect) Influenza A Untype (PCR) (Not Detect) Influenza Type B (PCR) (Not Detect) M.pneumoniae DNA (PCR) (Not Detect) Parainfluenza 1 (PCR) (Not Detect) Parainfluenza 2 (PCR) (Not Detect) Parainfluenza 3 (PCR) (Not Detect) Parainfluenza 4 (PCR) (Not Detect) RSV (PCR) (Not Detect) Entero/Rhino (PCR) (Not Detect) 11/18/16 11/18/16 11/18/16 Range/Units 11:14 16:51 23:10 WBC (4.3-11.1) K/mcL RBC (3.82-4.97) M/mcL Hgb (11.5-15.4) g/dL Hct (35.3-44.9) % MCV (83.0-100.0) fL MCH (28.0-33.3) pg MCHC (31.6-35.5) g/dL RDW (11.5-14.5) % Plt Count (140-400) K/mcL MPV (9.4-12.4) fL Immature Gran % (0-4) % Seg Neutrophils % % Band Neutrophils % (0-4) % Lymphocytes % % Monocytes % % Eosinophils % % Basophils % % Neutrophils # (1.6-8.9) K/mcL Lymphocytes # (0.6-4.6) K/mcL Monocytes # (0.0-1.3) K/mcL Eosinophils # (0.0-0.6) K/mcL Basophils # (0.0-0.2) K/mcL Nucleated RBCs/100 WBC (0) /100 WBC Hypersegmented Neuts (Not Present) Toxic Granulation (Not Present) Platelet Estimate (Normal) Large Platelets (Not Present) APTT (26.0-36.0) Seconds ABG pH (7.32-7.45) pH Units ABG pCO2 (35-45) mmHg ABG pO2 (85-104) mmHg ABG HCO3 (21-27) mEQ/L ABG Total CO2 (20-26) mEq/L ABG O2 Saturation (95-98) % ABG Base Excess (-2.0 to 3.0) mEq/L Respiration Rate Blood Gas Modality Inspired O2 % Tidal Volume cc PEEP cm H2O Sodium (136-145) mEq/L Potassium (3.5-4.5) mEq/L Chloride (98-109) mEq/L Carbon Dioxide (19-29) mEq/L BUN (7-20) mg/dL Creatinine (0.57-1.11) mg/dL Est GFR ( Amer) (> 60) Est GFR (Non-Af Amer) (> 60) BUN/Creatinine Ratio (6-26) Glucose (70-99) mg/dL POC Glucose 120 H 248 H 175 H (58-89) Calculated Osmolality (280-300) Lactic Acid (0.5-2.2) mmol/L Calcium (8.6-10.8) mg/dL Ionized Calcium (1.15-1.35) mmol/L Phosphorus (2.3-4.7) mg/dL Magnesium (1.6-2.6) mg/dL Total Bilirubin (0.2-1.2) mg/dL Direct Bilirubin (0.0-0.5) mg/dL Indirect Bilirubin (0.0-1.2) mg/dL AST (5-34) Units/L ALT (0-55) Units/L Alkaline Phosphatase (38-126) Units/L Creatine Kinase (29-168) Units/L Troponin I (0-0.03) ng/mL Serum Total Protein (6.0-8.3) g/dL Albumin (3.5-5.0) g/dL Globulin (2.4-3.5) g/dL Albumin/Globulin Ratio (1.1-2.2) Triglycerides (< 150) mg/dL Lipase (8-78) Units/L TSH (0.350-4.840) mcIU/mL Free T4 (0.70-1.48) ng/dl Free T3 (1.71-3.71) pg/mL Urine Color (Yellow) Urine Clarity (Clear) Urine pH (5.0-8.0) pH Units Ur Specific [place] (1.010-1.025) Urine Protein (Neg-Trace) mg/dL Urine Glucose (UA) (Normal) mg/dL Urine Ketones (Negative) mg/dL Urine Blood (Negative) Urine Nitrite (Negative) Urine Bilirubin (Negative) Urine Urobilinogen (Normal) mg/dL Ur Leukocyte Esterase (Negative) Urine Microscopic RBC (0-3) per hpf Urine Microscopic WBC (0-3) per hpf Ur Squamous Epith Cells (None-Few) per lpf Urine Bacteria (None-Few) per hpf Hyaline Casts (None-Few) per lpf Chlamy pneumoniae PCR (Not Detect) Adenovirus (PCR) (Not Detect) B. pertussis DNA (PCR) (Not Detect) Coronavirus OC43 (PCR) (Not Detect) Coronavirus HKU1 (PCR) (Not Detect) Coronavirus 229E (PCR) (Not Detect) Coronavirus NL63 (PCR) (Not Detect) Human Metapneumovirus (Not Detect) Influenza A (H1) PCR (Not Detect) Influ A (H1N1/09) PCR (Not Detect) Influenza A (H3) PCR (Not Detect) Influenza A Untype (PCR) (Not Detect) Influenza Type B (PCR) (Not Detect) M.pneumoniae DNA (PCR) (Not Detect) Parainfluenza 1 (PCR) (Not Detect) Parainfluenza 2 (PCR) (Not Detect) Parainfluenza 3 (PCR) (Not Detect) Parainfluenza 4 (PCR) (Not Detect) RSV (PCR) (Not Detect) Entero/Rhino (PCR) (Not Detect) 11/19/16 11/19/16 11/19/16 Range/Units 05:34 05:55 05:55 WBC 9.3 (4.3-11.1) K/mcL RBC 4.85 (3.82-4.97) M/mcL Hgb 13.7 (11.5-15.4) g/dL Hct 41.9 (35.3-44.9) % MCV 86.4 (83.0-100.0) fL MCH 28.2 (28.0-33.3) pg MCHC 32.7 (31.6-35.5) g/dL RDW 15.3 H (11.5-14.5) % Plt Count 127 L (140-400) K/mcL MPV 11.8 (9.4-12.4) fL Immature Gran % 0.5 (0-4) % Seg Neutrophils % 80.3 % Band Neutrophils % (0-4) % Lymphocytes % 9.4 % Monocytes % 8.3 % Eosinophils % 1.4 % Basophils % 0.1 % Neutrophils # 7.4 (1.6-8.9) K/mcL Lymphocytes # 0.9 (0.6-4.6) K/mcL Monocytes # 0.8 (0.0-1.3) K/mcL Eosinophils # 0.1 (0.0-0.6) K/mcL Basophils # 0.0 (0.0-0.2) K/mcL Nucleated RBCs/100 WBC (0) /100 WBC Hypersegmented Neuts (Not Present) Toxic Granulation (Not Present) Platelet Estimate (Normal) Large Platelets (Not Present) APTT (26.0-36.0) Seconds ABG pH (7.32-7.45) pH Units ABG pCO2 (35-45) mmHg ABG pO2 (85-104) mmHg ABG HCO3 (21-27) mEQ/L ABG Total CO2 (20-26) mEq/L ABG O2 Saturation (95-98) % ABG Base Excess (-2.0 to 3.0) mEq/L Respiration Rate Blood Gas Modality Inspired O2 % Tidal Volume cc PEEP cm H2O Sodium 141 (136-145) mEq/L Potassium 3.3 L (3.5-4.5) mEq/L Chloride 100 (98-109) mEq/L Carbon Dioxide 30 H (19-29) mEq/L BUN 113 H (7-20) mg/dL Creatinine 2.16 H (0.57-1.11) mg/dL Est GFR ( Amer) 28 L (> 60) Est GFR (Non-Af Amer) 23 L (> 60) BUN/Creatinine Ratio 52 H (6-26) Glucose 121 H (70-99) mg/dL POC Glucose 105 H (58-89) Calculated Osmolality 329 H (280-300) Lactic Acid (0.5-2.2) mmol/L Calcium 8.5 L (8.6-10.8) mg/dL Ionized Calcium (1.15-1.35) mmol/L Phosphorus (2.3-4.7) mg/dL Magnesium (1.6-2.6) mg/dL Total Bilirubin 1.3 H D (0.2-1.2) mg/dL Direct Bilirubin (0.0-0.5) mg/dL Indirect Bilirubin (0.0-1.2) mg/dL AST 21 (5-34) Units/L ALT 40 (0-55) Units/L Alkaline Phosphatase 53 (38-126) Units/L Creatine Kinase (29-168) Units/L Troponin I (0-0.03) ng/mL Serum Total Protein 5.6 L (6.0-8.3) g/dL Albumin 2.6 L (3.5-5.0) g/dL Globulin 3.0 (2.4-3.5) g/dL Albumin/Globulin Ratio 0.9 L (1.1-2.2) Triglycerides (< 150) mg/dL Lipase (8-78) Units/L TSH (0.350-4.840) mcIU/mL Free T4 (0.70-1.48) ng/dl Free T3 (1.71-3.71) pg/mL Urine Color (Yellow) Urine Clarity (Clear) Urine pH (5.0-8.0) pH Units Ur Specific [place] (1.010-1.025) Urine Protein (Neg-Trace) mg/dL Urine Glucose (UA) (Normal) mg/dL Urine Ketones (Negative) mg/dL Urine Blood (Negative) Urine Nitrite (Negative) Urine Bilirubin (Negative) Urine Urobilinogen (Normal) mg/dL Ur Leukocyte Esterase (Negative) Urine Microscopic RBC (0-3) per hpf Urine Microscopic WBC (0-3) per hpf Ur Squamous Epith Cells (None-Few) per lpf Urine Bacteria (None-Few) per hpf Hyaline Casts (None-Few) per lpf Chlamy pneumoniae PCR (Not Detect) Adenovirus (PCR) (Not Detect) B. pertussis DNA (PCR) (Not Detect) Coronavirus OC43 (PCR) (Not Detect) Coronavirus HKU1 (PCR) (Not Detect) Coronavirus 229E (PCR) (Not Detect) Coronavirus NL63 (PCR) (Not Detect) Human Metapneumovirus (Not Detect) Influenza A (H1) PCR (Not Detect) Influ A (H1N1/09) PCR (Not Detect) Influenza A (H3) PCR (Not Detect) Influenza A Untype (PCR) (Not Detect) Influenza Type B (PCR) (Not Detect) M.pneumoniae DNA (PCR) (Not Detect) Parainfluenza 1 (PCR) (Not Detect) Parainfluenza 2 (PCR) (Not Detect) Parainfluenza 3 (PCR) (Not Detect) Parainfluenza 4 (PCR) (Not Detect) RSV (PCR) (Not Detect) Entero/Rhino (PCR) (Not Detect) 11/19/16 11/19/16 11/19/16 Range/Units 11:13 19:38 23:28 WBC (4.3-11.1) K/mcL RBC (3.82-4.97) M/mcL Hgb (11.5-15.4) g/dL Hct (35.3-44.9) % MCV (83.0-100.0) fL MCH (28.0-33.3) pg MCHC (31.6-35.5) g/dL RDW (11.5-14.5) % Plt Count (140-400) K/mcL MPV (9.4-12.4) fL Immature Gran % (0-4) % Seg Neutrophils % % Band Neutrophils % (0-4) % Lymphocytes % % Monocytes % % Eosinophils % % Basophils % % Neutrophils # (1.6-8.9) K/mcL Lymphocytes # (0.6-4.6) K/mcL Monocytes # (0.0-1.3) K/mcL Eosinophils # (0.0-0.6) K/mcL Basophils # (0.0-0.2) K/mcL Nucleated RBCs/100 WBC (0) /100 WBC Hypersegmented Neuts (Not Present) Toxic Granulation (Not Present) Platelet Estimate (Normal) Large Platelets (Not Present) APTT (26.0-36.0) Seconds ABG pH (7.32-7.45) pH Units ABG pCO2 (35-45) mmHg ABG pO2 (85-104) mmHg ABG HCO3 (21-27) mEQ/L ABG Total CO2 (20-26) mEq/L ABG O2 Saturation (95-98) % ABG Base Excess (-2.0 to 3.0) mEq/L Respiration Rate Blood Gas Modality Inspired O2 % Tidal Volume cc PEEP cm H2O Sodium (136-145) mEq/L Potassium (3.5-4.5) mEq/L Chloride (98-109) mEq/L Carbon Dioxide (19-29) mEq/L BUN (7-20) mg/dL Creatinine (0.57-1.11) mg/dL Est GFR ( Amer) (> 60) Est GFR (Non-Af Amer) (> 60) BUN/Creatinine Ratio (6-26) Glucose (70-99) mg/dL POC Glucose 236 H 208 H 118 H (58-89) Calculated Osmolality (280-300) Lactic Acid (0.5-2.2) mmol/L Calcium (8.6-10.8) mg/dL Ionized Calcium (1.15-1.35) mmol/L Phosphorus (2.3-4.7) mg/dL Magnesium (1.6-2.6) mg/dL Total Bilirubin (0.2-1.2) mg/dL Direct Bilirubin (0.0-0.5) mg/dL Indirect Bilirubin (0.0-1.2) mg/dL AST (5-34) Units/L ALT (0-55) Units/L Alkaline Phosphatase (38-126) Units/L Creatine Kinase (29-168) Units/L Troponin I (0-0.03) ng/mL Serum Total Protein (6.0-8.3) g/dL Albumin (3.5-5.0) g/dL Globulin (2.4-3.5) g/dL Albumin/Globulin Ratio (1.1-2.2) Triglycerides (< 150) mg/dL Lipase (8-78) Units/L TSH (0.350-4.840) mcIU/mL Free T4 (0.70-1.48) ng/dl Free T3 (1.71-3.71) pg/mL Urine Color (Yellow) Urine Clarity (Clear) Urine pH (5.0-8.0) pH Units Ur Specific [place] (1.010-1.025) Urine Protein (Neg-Trace) mg/dL Urine Glucose (UA) (Normal) mg/dL Urine Ketones (Negative) mg/dL Urine Blood (Negative) Urine Nitrite (Negative) Urine Bilirubin (Negative) Urine Urobilinogen (Normal) mg/dL Ur Leukocyte Esterase (Negative) Urine Microscopic RBC (0-3) per hpf Urine Microscopic WBC (0-3) per hpf Ur Squamous Epith Cells (None-Few) per lpf Urine Bacteria (None-Few) per hpf Hyaline Casts (None-Few) per lpf Chlamy pneumoniae PCR (Not Detect) Adenovirus (PCR) (Not Detect) B. pertussis DNA (PCR) (Not Detect) Coronavirus OC43 (PCR) (Not Detect) Coronavirus HKU1 (PCR) (Not Detect) Coronavirus 229E (PCR) (Not Detect) Coronavirus NL63 (PCR) (Not Detect) Human Metapneumovirus (Not Detect) Influenza A (H1) PCR (Not Detect) Influ A (H1N1/09) PCR (Not Detect) Influenza A (H3) PCR (Not Detect) Influenza A Untype (PCR) (Not Detect) Influenza Type B (PCR) (Not Detect) M.pneumoniae DNA (PCR) (Not Detect) Parainfluenza 1 (PCR) (Not Detect) Parainfluenza 2 (PCR) (Not Detect) Parainfluenza 3 (PCR) (Not Detect) Parainfluenza 4 (PCR) (Not Detect) RSV (PCR) (Not Detect) Entero/Rhino (PCR) (Not Detect) 11/20/16 11/20/16 11/20/16 Range/Units 04:13 04:13 08:36 WBC 7.2 (4.3-11.1) K/mcL RBC 4.77 (3.82-4.97) M/mcL Hgb 13.6 (11.5-15.4) g/dL Hct 41.7 (35.3-44.9) % MCV 87.4 (83.0-100.0) fL MCH 28.5 (28.0-33.3) pg MCHC 32.6 (31.6-35.5) g/dL RDW 15.4 H (11.5-14.5) % Plt Count 120 L (140-400) K/mcL MPV 12.3 (9.4-12.4) fL Immature Gran % 0.8 (0-4) % Seg Neutrophils % 77.6 % Band Neutrophils % (0-4) % Lymphocytes % 11.8 % Monocytes % 7.8 % Eosinophils % 1.9 % Basophils % 0.1 % Neutrophils # 5.6 (1.6-8.9) K/mcL Lymphocytes # 0.9 (0.6-4.6) K/mcL Monocytes # 0.6 (0.0-1.3) K/mcL Eosinophils # 0.1 (0.0-0.6) K/mcL Basophils # 0.0 (0.0-0.2) K/mcL Nucleated RBCs/100 WBC (0) /100 WBC Hypersegmented Neuts (Not Present) Toxic Granulation (Not Present) Platelet Estimate (Normal) Large Platelets (Not Present) APTT (26.0-36.0) Seconds ABG pH (7.32-7.45) pH Units ABG pCO2 (35-45) mmHg ABG pO2 (85-104) mmHg ABG HCO3 (21-27) mEQ/L ABG Total CO2 (20-26) mEq/L ABG O2 Saturation (95-98) % ABG Base Excess (-2.0 to 3.0) mEq/L Respiration Rate Blood Gas Modality Inspired O2 % Tidal Volume cc PEEP cm H2O Sodium 147 H (136-145) mEq/L Potassium 5.0 H D (3.5-4.5) mEq/L Chloride 111 H (98-109) mEq/L Carbon Dioxide 26 (19-29) mEq/L BUN 27 H D (7-20) mg/dL Creatinine 0.77 D (0.57-1.11) mg/dL Est GFR ( Amer) > 60 (> 60) Est GFR (Non-Af Amer) > 60 (> 60) BUN/Creatinine Ratio 35 H (6-26) Glucose 80 (70-99) mg/dL POC Glucose 196 H (58-89) Calculated Osmolality 308 H (280-300) Lactic Acid (0.5-2.2) mmol/L Calcium 8.9 (8.6-10.8) mg/dL Ionized Calcium 1.08 L (1.15-1.35) mmol/L Phosphorus 3.5 (2.3-4.7) mg/dL Magnesium 2.5 (1.6-2.6) mg/dL Total Bilirubin (0.2-1.2) mg/dL Direct Bilirubin (0.0-0.5) mg/dL Indirect Bilirubin (0.0-1.2) mg/dL AST (5-34) Units/L ALT (0-55) Units/L Alkaline Phosphatase (38-126) Units/L Creatine Kinase (29-168) Units/L Troponin I (0-0.03) ng/mL Serum Total Protein (6.0-8.3) g/dL Albumin (3.5-5.0) g/dL Globulin (2.4-3.5) g/dL Albumin/Globulin Ratio (1.1-2.2) Triglycerides (< 150) mg/dL Lipase (8-78) Units/L TSH (0.350-4.840) mcIU/mL Free T4 (0.70-1.48) ng/dl Free T3 (1.71-3.71) pg/mL Urine Color (Yellow) Urine Clarity (Clear) Urine pH (5.0-8.0) pH Units Ur Specific [place] (1.010-1.025) Urine Protein (Neg-Trace) mg/dL Urine Glucose (UA) (Normal) mg/dL Urine Ketones (Negative) mg/dL Urine Blood (Negative) Urine Nitrite (Negative) Urine Bilirubin (Negative) Urine Urobilinogen (Normal) mg/dL Ur Leukocyte Esterase (Negative) Urine Microscopic RBC (0-3) per hpf Urine Microscopic WBC (0-3) per hpf Ur Squamous Epith Cells (None-Few) per lpf Urine Bacteria (None-Few) per hpf Hyaline Casts (None-Few) per lpf Chlamy pneumoniae PCR (Not Detect) Adenovirus (PCR) (Not Detect) B. pertussis DNA (PCR) (Not Detect) Coronavirus OC43 (PCR) (Not Detect) Coronavirus HKU1 (PCR) (Not Detect) Coronavirus 229E (PCR) (Not Detect) Coronavirus NL63 (PCR) (Not Detect) Human Metapneumovirus (Not Detect) Influenza A (H1) PCR (Not Detect) Influ A (H1N1/09) PCR (Not Detect) Influenza A (H3) PCR (Not Detect) Influenza A Untype (PCR) (Not Detect) Influenza Type B (PCR) (Not Detect) M.pneumoniae DNA (PCR) (Not Detect) Parainfluenza 1 (PCR) (Not Detect) Parainfluenza 2 (PCR) (Not Detect) Parainfluenza 3 (PCR) (Not Detect) Parainfluenza 4 (PCR) (Not Detect) RSV (PCR) (Not Detect) Entero/Rhino (PCR) (Not Detect) 11/20/16 11/20/16 11/20/16 Range/Units 11:37 17:02 23:49 WBC (4.3-11.1) K/mcL RBC (3.82-4.97) M/mcL Hgb (11.5-15.4) g/dL Hct (35.3-44.9) % MCV (83.0-100.0) fL MCH (28.0-33.3) pg MCHC (31.6-35.5) g/dL RDW (11.5-14.5) % Plt Count (140-400) K/mcL MPV (9.4-12.4) fL Immature Gran % (0-4) % Seg Neutrophils % % Band Neutrophils % (0-4) % Lymphocytes % % Monocytes % % Eosinophils % % Basophils % % Neutrophils # (1.6-8.9) K/mcL Lymphocytes # (0.6-4.6) K/mcL Monocytes # (0.0-1.3) K/mcL Eosinophils # (0.0-0.6) K/mcL Basophils # (0.0-0.2) K/mcL Nucleated RBCs/100 WBC (0) /100 WBC Hypersegmented Neuts (Not Present) Toxic Granulation (Not Present) Platelet Estimate (Normal) Large Platelets (Not Present) APTT (26.0-36.0) Seconds ABG pH (7.32-7.45) pH Units ABG pCO2 (35-45) mmHg ABG pO2 (85-104) mmHg ABG HCO3 (21-27) mEQ/L ABG Total CO2 (20-26) mEq/L ABG O2 Saturation (95-98) % ABG Base Excess (-2.0 to 3.0) mEq/L Respiration Rate Blood Gas Modality Inspired O2 % Tidal Volume cc PEEP cm H2O Sodium (136-145) mEq/L Potassium (3.5-4.5) mEq/L Chloride (98-109) mEq/L Carbon Dioxide (19-29) mEq/L BUN (7-20) mg/dL Creatinine (0.57-1.11) mg/dL Est GFR ( Amer) (> 60) Est GFR (Non-Af Amer) (> 60) BUN/Creatinine Ratio (6-26) Glucose (70-99) mg/dL POC Glucose 187 H 199 H 150 H (58-89) Calculated Osmolality (280-300) Lactic Acid (0.5-2.2) mmol/L Calcium (8.6-10.8) mg/dL Ionized Calcium (1.15-1.35) mmol/L Phosphorus (2.3-4.7) mg/dL Magnesium (1.6-2.6) mg/dL Total Bilirubin (0.2-1.2) mg/dL Direct Bilirubin (0.0-0.5) mg/dL Indirect Bilirubin (0.0-1.2) mg/dL AST (5-34) Units/L ALT (0-55) Units/L Alkaline Phosphatase (38-126) Units/L Creatine Kinase (29-168) Units/L Troponin I (0-0.03) ng/mL Serum Total Protein (6.0-8.3) g/dL Albumin (3.5-5.0) g/dL Globulin (2.4-3.5) g/dL Albumin/Globulin Ratio (1.1-2.2) Triglycerides (< 150) mg/dL Lipase (8-78) Units/L TSH (0.350-4.840) mcIU/mL Free T4 (0.70-1.48) ng/dl Free T3 (1.71-3.71) pg/mL Urine Color (Yellow) Urine Clarity (Clear) Urine pH (5.0-8.0) pH Units Ur Specific [place] (1.010-1.025) Urine Protein (Neg-Trace) mg/dL Urine Glucose (UA) (Normal) mg/dL Urine Ketones (Negative) mg/dL Urine Blood (Negative) Urine Nitrite (Negative) Urine Bilirubin (Negative) Urine Urobilinogen (Normal) mg/dL Ur Leukocyte Esterase (Negative) Urine Microscopic RBC (0-3) per hpf Urine Microscopic WBC (0-3) per hpf Ur Squamous Epith Cells (None-Few) per lpf Urine Bacteria (None-Few) per hpf Hyaline Casts (None-Few) per lpf Chlamy pneumoniae PCR (Not Detect) Adenovirus (PCR) (Not Detect) B. pertussis DNA (PCR) (Not Detect) Coronavirus OC43 (PCR) (Not Detect) Coronavirus HKU1 (PCR) (Not Detect) Coronavirus 229E (PCR) (Not Detect) Coronavirus NL63 (PCR) (Not Detect) Human Metapneumovirus (Not Detect) Influenza A (H1) PCR (Not Detect) Influ A (H1N1/09) PCR (Not Detect) Influenza A (H3) PCR (Not Detect) Influenza A Untype (PCR) (Not Detect) Influenza Type B (PCR) (Not Detect) M.pneumoniae DNA (PCR) (Not Detect) Parainfluenza 1 (PCR) (Not Detect) Parainfluenza 2 (PCR) (Not Detect) Parainfluenza 3 (PCR) (Not Detect) Parainfluenza 4 (PCR) (Not Detect) RSV (PCR) (Not Detect) Entero/Rhino (PCR) (Not Detect) 11/21/16 11/21/16 Range/Units 04:29 05:49 WBC (4.3-11.1) K/mcL RBC (3.82-4.97) M/mcL Hgb (11.5-15.4) g/dL Hct (35.3-44.9) % MCV (83.0-100.0) fL MCH (28.0-33.3) pg MCHC (31.6-35.5) g/dL RDW (11.5-14.5) % Plt Count (140-400) K/mcL MPV (9.4-12.4) fL Immature Gran % (0-4) % Seg Neutrophils % % Band Neutrophils % (0-4) % Lymphocytes % % Monocytes % % Eosinophils % % Basophils % % Neutrophils # (1.6-8.9) K/mcL Lymphocytes # (0.6-4.6) K/mcL Monocytes # (0.0-1.3) K/mcL Eosinophils # (0.0-0.6) K/mcL Basophils # (0.0-0.2) K/mcL Nucleated RBCs/100 WBC (0) /100 WBC Hypersegmented Neuts (Not Present) Toxic Granulation (Not Present) Platelet Estimate (Normal) Large Platelets (Not Present) APTT (26.0-36.0) Seconds ABG pH (7.32-7.45) pH Units ABG pCO2 (35-45) mmHg ABG pO2 (85-104) mmHg ABG HCO3 (21-27) mEQ/L ABG Total CO2 (20-26) mEq/L ABG O2 Saturation (95-98) % ABG Base Excess (-2.0 to 3.0) mEq/L Respiration Rate Blood Gas Modality Inspired O2 % Tidal Volume cc PEEP cm H2O Sodium 143 (136-145) mEq/L Potassium 4.6 H (3.5-4.5) mEq/L Chloride 105 (98-109) mEq/L Carbon Dioxide 29 (19-29) mEq/L BUN 70 H D (7-20) mg/dL Creatinine 1.36 H D (0.57-1.11) mg/dL Est GFR ( Amer) 48 L (> 60) Est GFR (Non-Af Amer) 40 L (> 60) BUN/Creatinine Ratio 51 H (6-26) Glucose 95 (70-99) mg/dL POC Glucose 92 H (58-89) Calculated Osmolality 316 H (280-300) Lactic Acid (0.5-2.2) mmol/L Calcium 8.8 (8.6-10.8) mg/dL Ionized Calcium (1.15-1.35) mmol/L Phosphorus (2.3-4.7) mg/dL Magnesium (1.6-2.6) mg/dL Total Bilirubin (0.2-1.2) mg/dL Direct Bilirubin (0.0-0.5) mg/dL Indirect Bilirubin (0.0-1.2) mg/dL AST (5-34) Units/L ALT (0-55) Units/L Alkaline Phosphatase (38-126) Units/L Creatine Kinase (29-168) Units/L Troponin I (0-0.03) ng/mL Serum Total Protein (6.0-8.3) g/dL Albumin (3.5-5.0) g/dL Globulin (2.4-3.5) g/dL Albumin/Globulin Ratio (1.1-2.2) Triglycerides (< 150) mg/dL Lipase (8-78) Units/L TSH (0.350-4.840) mcIU/mL Free T4 (0.70-1.48) ng/dl Free T3 (1.71-3.71) pg/mL Urine Color (Yellow) Urine Clarity (Clear) Urine pH (5.0-8.0) pH Units Ur Specific [place] (1.010-1.025) Urine Protein (Neg-Trace) mg/dL Urine Glucose (UA) (Normal) mg/dL Urine Ketones (Negative) mg/dL Urine Blood (Negative) Urine Nitrite (Negative) Urine Bilirubin (Negative) Urine Urobilinogen (Normal) mg/dL Ur Leukocyte Esterase (Negative) Urine Microscopic RBC (0-3) per hpf Urine Microscopic WBC (0-3) per hpf Ur Squamous Epith Cells (None-Few) per lpf Urine Bacteria (None-Few) per hpf Hyaline Casts (None-Few) per lpf Chlamy pneumoniae PCR (Not Detect) Adenovirus (PCR) (Not Detect) B. pertussis DNA (PCR) (Not Detect) Coronavirus OC43 (PCR) (Not Detect) Coronavirus HKU1 (PCR) (Not Detect) Coronavirus 229E (PCR) (Not Detect) Coronavirus NL63 (PCR) (Not Detect) Human Metapneumovirus (Not Detect) Influenza A (H1) PCR (Not Detect) Influ A (H1N1/09) PCR (Not Detect) Influenza A (H3) PCR (Not Detect) Influenza A Untype (PCR) (Not Detect) Influenza Type B (PCR) (Not Detect) M.pneumoniae DNA (PCR) (Not Detect) Parainfluenza 1 (PCR) (Not Detect) Parainfluenza 2 (PCR) (Not Detect) Parainfluenza 3 (PCR) (Not Detect) Parainfluenza 4 (PCR) (Not Detect) RSV (PCR) (Not Detect) Entero/Rhino (PCR) (Not Detect)
[2016-11-21] MEDS: *HR* OxyCODONE Immed Rel 5 MG TABLET PO PRN (20:33)
[2016-11-22] MEDS: Ipratropium/Albuterol Neb 3 ML IH SCH ×7 (00:39→23:58)
[2016-11-22] MEDS: *HR* Heparin 5,000 UNIT/ML VIAL SQ SCH ×3 (03:38→17:32)
[2016-11-22] MEDS: Insulin LISPRO 300 UNITS/3 ML VIAL SQ SCH ×4 (05:56→23:09)
[2016-11-22] MEDS: dilTIAZem HCl 60 MG TABLET PO SCH ×4 (06:02→23:21)
[2016-11-22] MEDS: Budesonide/Formoterol 160/4.5 MDI IH SCH ×2 (07:53→20:58)
[2016-11-22] MEDS: predniSONE 20 MG TABLET PO SCH (09:37)
[2016-11-22] MEDS: Sennosides/Docusate Sodium TABLET PO SCH ×2 (09:37→19:53)
[2016-11-22] MEDS: Aspirin 81 MG TAB.CHEW GTUBE SCH (09:37)
[2016-11-22] MEDS: Nicotine 21 MG PATCH.TD24 TD SCH (09:38)
--- NOTE | 2016-11-22 12:05 | Internal Med Progress Note ---
Date of Encounter: 11/22/16 Time of Encounter: 09:40 - Assessment and plan (1) Acute exacerbation of chronic obstructive pulmonary disease (COPD) Current Visit: Yes Status: Acute Assessment and plan: Continue current treatment plan: Awaiting placement to skilled rehabilitation. Wean FiO2, taper steroids. (2) Acute respiratory failure with hypercapnia Current Visit: Yes Status: Resolved (3) Anxiety Current Visit: No Status: Acute Assessment and plan: Improving (4) Atrial fibrillation Current Visit: Yes Status: Chronic Assessment and plan: Rate controlled Qualifiers: Atrial fibrillation type: paroxysmal Qualified Code(s): I48.0 - Paroxysmal atrial fibrillation (5) Elevated troponin Current Visit: Yes Status: Acute (6) Goals of care, counseling/discussion Current Visit: No Status: Acute (7) Physical deconditioning Current Visit: Yes Status: Acute Assessment and plan: Placement to skilled rehabilitation (8) Cigarette smoker Current Visit: No Status: Chronic (9) Invasive ductal carcinoma of breast Current Visit: No Status: Chronic Qualifiers: Laterality: right Qualified Code(s): C50.911 - Malignant neoplasm of unspecified site of right female breast (10) Hypertension Current Visit: Yes Status: Chronic Qualifiers: Hypertension type: essential hypertension Qualified Code(s): I10 - Essential (primary) hypertension (11) DVT prophylaxis Current Visit: Yes Status: Acute (12) Pedal edema Current Visit: Yes Status: Acute Assessment and plan: Will give a dose of Lasix. Could be due to intravenous hydration here. - Subjective Interval history: Patient continues to do better. No new complaints at this time. Tolerating current management well. Anxiety is improving. Denies any chest pain. - Constitutional Vitals: Temp Pulse Resp BP Pulse Ox 98.4 F 84 18 127/88 95 11/22/16 11:00 11/22/16 11:00 11/22/16 11:00 11/22/16 11:00 11/22/16 11:00 General appearance: Present: cooperative, mild distress, A&O X 3, morbidly obese , answers questions appropriately - Respiratory Respiratory exam: Present: prolonged expiratory phase, wheezes. Absent: accessory muscle use, rales, rhonchi - Cardiovascular Cardiovascular exam: Present: RRR, +S1, +S2. Absent: diastolic murmur, gallop, rubs, systolic murmur - GI/Abdominal GI/Abdominal exam: Present: normal bowel sounds, soft, no peritoneal signs. Absent: distended, tenderness - Extremities Exam Extremities exam: Present: pedal edema, warm, radial pulses palpable and symetrical. Absent: calf tenderness, cyanotic Internal Medicine: Result - Labs CBC & Chem 7: 11/20/16 04:13 11/21/16 04:29 - ABG Interpretation ABG results: ABG ABG pH 7.28 pH Units (7.32-7.45) L 11/18/16 04:08 ABG pCO2 83 mmHg (35-45) H* 11/18/16 04:08 ABG pO2 77 mmHg (85-104) L 11/18/16 04:08 ABG O2 Saturation 93 % (95-98) L 11/18/16 04:08 PT/INR, D-dimer PT 13.9 Seconds (9.4-12.1) H 11/06/16 17:19 D-Dimer 3921 ng/mLFEU (0-500) H 11/06/16 17:19 Consult Discharge Plan - Plan Referrals: Kay Palmer [Primary Care Provider] - (patient is going to [facility]CF, no follow up appointment is needed) - Attending Attestation This document has been at least partially created by [employer] voice recognition technology by Dr. Anders. Errors in grammar, wording or other phrases may exist. If errors are found after the documentation is signed, they will be addressed individually in the addendum section of this document when appropriate. Medical Decision Making - MDM Narrative Medical decision making narrative: Moderate risk for complications - Lab Data Result diagrams: 11/20/16 04:13 11/21/16 04:29 Lab Results 11/06/16 11/06/16 11/06/16 Range/Units 21:13 21:25 23:09 WBC (4.3-11.1) K/mcL RBC (3.82-4.97) M/mcL Hgb (11.5-15.4) g/dL Hct (35.3-44.9) % MCV (83.0-100.0) fL MCH (28.0-33.3) pg MCHC (31.6-35.5) g/dL RDW (11.5-14.5) % Plt Count (140-400) K/mcL MPV (9.4-12.4) fL Immature Gran % (0-4) % Seg Neutrophils % % Band Neutrophils % (0-4) % Lymphocytes % % Monocytes % % Eosinophils % % Basophils % % Neutrophils # (1.6-8.9) K/mcL Lymphocytes # (0.6-4.6) K/mcL Monocytes # (0.0-1.3) K/mcL Eosinophils # (0.0-0.6) K/mcL Basophils # (0.0-0.2) K/mcL Nucleated RBCs/100 WBC (0) /100 WBC Hypersegmented Neuts (Not Present) Toxic Granulation (Not Present) Platelet Estimate (Normal) Large Platelets (Not Present) APTT (26.0-36.0) Seconds ABG pH 7.13 L* (7.32-7.45) pH Units ABG pCO2 111 H* (35-45) mmHg ABG pO2 94 (85-104) mmHg ABG HCO3 36.9 H (21-27) mEQ/L ABG Total CO2 40.3 H (20-26) mEq/L ABG O2 Saturation 94 L (95-98) % ABG Base Excess 2.7 (-2.0 to 3.0) mEq/L Respiration Rate Blood Gas Modality BIPAP Inspired O2 100 % Tidal Volume cc PEEP cm H2O Sodium (136-145) mEq/L Potassium (3.5-4.5) mEq/L Chloride (98-109) mEq/L Carbon Dioxide (19-29) mEq/L BUN (7-20) mg/dL Creatinine (0.57-1.11) mg/dL Est GFR ( Amer) (> 60) Est GFR (Non-Af Amer) (> 60) BUN/Creatinine Ratio (6-26) Glucose (70-99) mg/dL POC Glucose 118 H (58-89) Calculated Osmolality (280-300) Lactic Acid (0.5-2.2) mmol/L Calcium (8.6-10.8) mg/dL Ionized Calcium (1.15-1.35) mmol/L Phosphorus (2.3-4.7) mg/dL Magnesium (1.6-2.6) mg/dL Total Bilirubin (0.2-1.2) mg/dL Direct Bilirubin (0.0-0.5) mg/dL Indirect Bilirubin (0.0-1.2) mg/dL AST (5-34) Units/L ALT (0-55) Units/L Alkaline Phosphatase (38-126) Units/L Creatine Kinase (29-168) Units/L Troponin I 0.78 H* (0-0.03) ng/mL Serum Total Protein (6.0-8.3) g/dL Albumin (3.5-5.0) g/dL Globulin (2.4-3.5) g/dL Albumin/Globulin Ratio (1.1-2.2) Triglycerides (< 150) mg/dL Lipase (8-78) Units/L TSH (0.350-4.840) mcIU/mL Free T4 (0.70-1.48) ng/dl Free T3 (1.71-3.71) pg/mL Urine Color (Yellow) Urine Clarity (Clear) Urine pH (5.0-8.0) pH Units Ur Specific Dana (1.010-1.025) Urine Protein (Neg-Trace) mg/dL Urine Glucose (UA) (Normal) mg/dL Urine Ketones (Negative) mg/dL Urine Blood (Negative) Urine Nitrite (Negative) Urine Bilirubin (Negative) Urine Urobilinogen (Normal) mg/dL Ur Leukocyte Esterase (Negative) Urine Microscopic RBC (0-3) per hpf Urine Microscopic WBC (0-3) per hpf Ur Squamous Epith Cells (None-Few) per lpf Urine Bacteria (None-Few) per hpf Hyaline Casts (None-Few) per lpf Chlamy pneumoniae PCR (Not Detect) Adenovirus (PCR) (Not Detect) B. pertussis DNA (PCR) (Not Detect) Coronavirus OC43 (PCR) (Not Detect) Coronavirus HKU1 (PCR) (Not Detect) Coronavirus 229E (PCR) (Not Detect) Coronavirus NL63 (PCR) (Not Detect) Human Metapneumovirus (Not Detect) Influenza A (H1) PCR (Not Detect) Influ A (H1N1/09) PCR (Not Detect) Influenza A (H3) PCR (Not Detect) Influenza A Untype (PCR) (Not Detect) Influenza Type B (PCR) (Not Detect) M.pneumoniae DNA (PCR) (Not Detect) Parainfluenza 1 (PCR) (Not Detect) Parainfluenza 2 (PCR) (Not Detect) Parainfluenza 3 (PCR) (Not Detect) Parainfluenza 4 (PCR) (Not Detect) RSV (PCR) (Not Detect) Entero/Rhino (PCR) (Not Detect) 11/07/16 11/07/16 11/07/16 Range/Units 00:18 02:12 02:41 WBC (4.3-11.1) K/mcL RBC (3.82-4.97) M/mcL Hgb (11.5-15.4) g/dL Hct (35.3-44.9) % MCV (83.0-100.0) fL MCH (28.0-33.3) pg MCHC (31.6-35.5) g/dL RDW (11.5-14.5) % Plt Count (140-400) K/mcL MPV (9.4-12.4) fL Immature Gran % (0-4) % Seg Neutrophils % % Band Neutrophils % (0-4) % Lymphocytes % % Monocytes % % Eosinophils % % Basophils % % Neutrophils # (1.6-8.9) K/mcL Lymphocytes # (0.6-4.6) K/mcL Monocytes # (0.0-1.3) K/mcL Eosinophils # (0.0-0.6) K/mcL Basophils # (0.0-0.2) K/mcL Nucleated RBCs/100 WBC (0) /100 WBC Hypersegmented Neuts (Not Present) Toxic Granulation (Not Present) Platelet Estimate (Normal) Large Platelets (Not Present) APTT (26.0-36.0) Seconds ABG pH 7.46 H D (7.32-7.45) pH Units ABG pCO2 46 H D (35-45) mmHg ABG pO2 53 L (85-104) mmHg ABG HCO3 32.7 H (21-27) mEQ/L ABG Total CO2 34.1 H (20-26) mEq/L ABG O2 Saturation 89 L (95-98) % ABG Base Excess 7.6 H (-2.0 to 3.0) mEq/L Respiration Rate Blood Gas Modality ASSIST CONTROL Inspired O2 100 % Tidal Volume cc PEEP cm H2O Sodium (136-145) mEq/L Potassium (3.5-4.5) mEq/L Chloride (98-109) mEq/L Carbon Dioxide (19-29) mEq/L BUN (7-20) mg/dL Creatinine (0.57-1.11) mg/dL Est GFR ( Amer) (> 60) Est GFR (Non-Af Amer) (> 60) BUN/Creatinine Ratio (6-26) Glucose (70-99) mg/dL POC Glucose 142 H (58-89) Calculated Osmolality (280-300) Lactic Acid (0.5-2.2) mmol/L Calcium (8.6-10.8) mg/dL Ionized Calcium (1.15-1.35) mmol/L Phosphorus (2.3-4.7) mg/dL Magnesium (1.6-2.6) mg/dL Total Bilirubin (0.2-1.2) mg/dL Direct Bilirubin (0.0-0.5) mg/dL Indirect Bilirubin (0.0-1.2) mg/dL AST (5-34) Units/L ALT (0-55) Units/L Alkaline Phosphatase (38-126) Units/L Creatine Kinase (29-168) Units/L Troponin I (0-0.03) ng/mL Serum Total Protein (6.0-8.3) g/dL Albumin (3.5-5.0) g/dL Globulin (2.4-3.5) g/dL Albumin/Globulin Ratio (1.1-2.2) Triglycerides (< 150) mg/dL Lipase (8-78) Units/L TSH (0.350-4.840) mcIU/mL Free T4 (0.70-1.48) ng/dl Free T3 (1.71-3.71) pg/mL Urine Color Yellow (Yellow) Urine Clarity Clear (Clear) Urine pH 6.0 (5.0-8.0) pH Units Ur Specific Dana 1.012 (1.010-1.025) Urine Protein Trace (Neg-Trace) mg/dL Urine Glucose (UA) Normal (Normal) mg/dL Urine Ketones Negative (Negative) mg/dL Urine Blood Negative (Negative) Urine Nitrite Negative (Negative) Urine Bilirubin Negative (Negative) Urine Urobilinogen Normal (Normal) mg/dL Ur Leukocyte Esterase Negative (Negative) Urine Microscopic RBC 0-3 (0-3) per hpf Urine Microscopic WBC 0-3 (0-3) per hpf Ur Squamous Epith Cells Few (None-Few) per lpf Urine Bacteria None Seen (None-Few) per hpf Hyaline Casts None Seen (None-Few) per lpf Chlamy pneumoniae PCR (Not Detect) Adenovirus (PCR) (Not Detect) B. pertussis DNA (PCR) (Not Detect) Coronavirus OC43 (PCR) (Not Detect) Coronavirus HKU1 (PCR) (Not Detect) Coronavirus 229E (PCR) (Not Detect) Coronavirus NL63 (PCR) (Not Detect) Human Metapneumovirus (Not Detect) Influenza A (H1) PCR (Not Detect) Influ A (H1N1/09) PCR (Not Detect) Influenza A (H3) PCR (Not Detect) Influenza A Untype (PCR) (Not Detect) Influenza Type B (PCR) (Not Detect) M.pneumoniae DNA (PCR) (Not Detect) Parainfluenza 1 (PCR) (Not Detect) Parainfluenza 2 (PCR) (Not Detect) Parainfluenza 3 (PCR) (Not Detect) Parainfluenza 4 (PCR) (Not Detect) RSV (PCR) (Not Detect) Entero/Rhino (PCR) (Not Detect) 11/07/16 11/07/16 11/07/16 Range/Units 02:51 02:51 02:51 WBC 12.8 H (4.3-11.1) K/mcL RBC 5.10 H (3.82-4.97) M/mcL Hgb 14.4 (11.5-15.4) g/dL Hct 47.2 H (35.3-44.9) % MCV 92.5 (83.0-100.0) fL MCH 28.2 (28.0-33.3) pg MCHC 30.5 L (31.6-35.5) g/dL RDW 15.8 H (11.5-14.5) % Plt Count 189 (140-400) K/mcL MPV 10.9 (9.4-12.4) fL Immature Gran % 2.0 (0-4) % Seg Neutrophils % 93.3 % Band Neutrophils % (0-4) % Lymphocytes % 2.1 % Monocytes % 2.3 % Eosinophils % 0.0 % Basophils % 0.3 % Neutrophils # 12.0 H (1.6-8.9) K/mcL Lymphocytes # 0.3 L (0.6-4.6) K/mcL Monocytes # 0.3 (0.0-1.3) K/mcL Eosinophils # 0.0 (0.0-0.6) K/mcL Basophils # 0.0 (0.0-0.2) K/mcL Nucleated RBCs/100 WBC 2.1 H (0) /100 WBC Hypersegmented Neuts (Not Present) Toxic Granulation (Not Present) Platelet Estimate (Normal) Large Platelets (Not Present) APTT 65.2 H D (26.0-36.0) Seconds ABG pH (7.32-7.45) pH Units ABG pCO2 (35-45) mmHg ABG pO2 (85-104) mmHg ABG HCO3 (21-27) mEQ/L ABG Total CO2 (20-26) mEq/L ABG O2 Saturation (95-98) % ABG Base Excess (-2.0 to 3.0) mEq/L Respiration Rate Blood Gas Modality Inspired O2 % Tidal Volume cc PEEP cm H2O Sodium 135 L (136-145) mEq/L Potassium 5.4 H (3.5-4.5) mEq/L Chloride 99 (98-109) mEq/L Carbon Dioxide 21 (19-29) mEq/L BUN 54 H (7-20) mg/dL Creatinine 2.52 H (0.57-1.11) mg/dL Est GFR ( Amer) 24 L (> 60) Est GFR (Non-Af Amer) 19 L (> 60) BUN/Creatinine Ratio 21 (6-26) Glucose 139 H (70-99) mg/dL POC Glucose (58-89) Calculated Osmolality 297 (280-300) Lactic Acid (0.5-2.2) mmol/L Calcium 8.4 L (8.6-10.8) mg/dL Ionized Calcium (1.15-1.35) mmol/L Phosphorus 4.8 H (2.3-4.7) mg/dL Magnesium 2.3 (1.6-2.6) mg/dL Total Bilirubin (0.2-1.2) mg/dL Direct Bilirubin (0.0-0.5) mg/dL Indirect Bilirubin (0.0-1.2) mg/dL AST (5-34) Units/L ALT (0-55) Units/L Alkaline Phosphatase (38-126) Units/L Creatine Kinase (29-168) Units/L Troponin I (0-0.03) ng/mL Serum Total Protein (6.0-8.3) g/dL Albumin (3.5-5.0) g/dL Globulin (2.4-3.5) g/dL Albumin/Globulin Ratio (1.1-2.2) Triglycerides (< 150) mg/dL Lipase (8-78) Units/L TSH (0.350-4.840) mcIU/mL Free T4 (0.70-1.48) ng/dl Free T3 (1.71-3.71) pg/mL Urine Color (Yellow) Urine Clarity (Clear) Urine pH (5.0-8.0) pH Units Ur Specific Dana (1.010-1.025) Urine Protein (Neg-Trace) mg/dL Urine Glucose (UA) (Normal) mg/dL Urine Ketones (Negative) mg/dL Urine Blood (Negative) Urine Nitrite (Negative) Urine Bilirubin (Negative) Urine Urobilinogen (Normal) mg/dL Ur Leukocyte Esterase (Negative) Urine Microscopic RBC (0-3) per hpf Urine Microscopic WBC (0-3) per hpf Ur Squamous Epith Cells (None-Few) per lpf Urine Bacteria (None-Few) per hpf Hyaline Casts (None-Few) per lpf Chlamy pneumoniae PCR (Not Detect) Adenovirus (PCR) (Not Detect) B. pertussis DNA (PCR) (Not Detect) Coronavirus OC43 (PCR) (Not Detect) Coronavirus HKU1 (PCR) (Not Detect) Coronavirus 229E (PCR) (Not Detect) Coronavirus NL63 (PCR) (Not Detect) Human Metapneumovirus (Not Detect) Influenza A (H1) PCR (Not Detect) Influ A (H1N1/09) PCR (Not Detect) Influenza A (H3) PCR (Not Detect) Influenza A Untype (PCR) (Not Detect) Influenza Type B (PCR) (Not Detect) M.pneumoniae DNA (PCR) (Not Detect) Parainfluenza 1 (PCR) (Not Detect) Parainfluenza 2 (PCR) (Not Detect) Parainfluenza 3 (PCR) (Not Detect) Parainfluenza 4 (PCR) (Not Detect) RSV (PCR) (Not Detect) Entero/Rhino (PCR) (Not Detect) 11/07/16 11/07/16 11/07/16 Range/Units 05:33 07:52 09:08 WBC (4.3-11.1) K/mcL RBC (3.82-4.97) M/mcL Hgb (11.5-15.4) g/dL Hct (35.3-44.9) % MCV (83.0-100.0) fL MCH (28.0-33.3) pg MCHC (31.6-35.5) g/dL RDW (11.5-14.5) % Plt Count (140-400) K/mcL MPV (9.4-12.4) fL Immature Gran % (0-4) % Seg Neutrophils % % Band Neutrophils % (0-4) % Lymphocytes % % Monocytes % % Eosinophils % % Basophils % % Neutrophils # (1.6-8.9) K/mcL Lymphocytes # (0.6-4.6) K/mcL Monocytes # (0.0-1.3) K/mcL Eosinophils # (0.0-0.6) K/mcL Basophils # (0.0-0.2) K/mcL Nucleated RBCs/100 WBC (0) /100 WBC Hypersegmented Neuts (Not Present) Toxic Granulation (Not Present) Platelet Estimate (Normal) Large Platelets (Not Present) APTT 108.8 H D (26.0-36.0) Seconds ABG pH 7.59 H D (7.32-7.45) pH Units ABG pCO2 31 L (35-45) mmHg ABG pO2 67 L (85-104) mmHg ABG HCO3 29.7 H (21-27) mEQ/L ABG Total CO2 30.7 H (20-26) mEq/L ABG O2 Saturation 96 (95-98) % ABG Base Excess 8.3 H (-2.0 to 3.0) mEq/L Respiration Rate Blood Gas Modality ASSIST CONTROL Inspired O2 100 % Tidal Volume cc PEEP cm H2O Sodium (136-145) mEq/L Potassium (3.5-4.5) mEq/L Chloride (98-109) mEq/L Carbon Dioxide (19-29) mEq/L BUN (7-20) mg/dL Creatinine (0.57-1.11) mg/dL Est GFR ( Amer) (> 60) Est GFR (Non-Af Amer) (> 60) BUN/Creatinine Ratio (6-26) Glucose (70-99) mg/dL POC Glucose (58-89) Calculated Osmolality (280-300) Lactic Acid (0.5-2.2) mmol/L Calcium (8.6-10.8) mg/dL Ionized Calcium (1.15-1.35) mmol/L Phosphorus (2.3-4.7) mg/dL Magnesium (1.6-2.6) mg/dL Total Bilirubin (0.2-1.2) mg/dL Direct Bilirubin (0.0-0.5) mg/dL Indirect Bilirubin (0.0-1.2) mg/dL AST (5-34) Units/L ALT (0-55) Units/L Alkaline Phosphatase (38-126) Units/L Creatine Kinase (29-168) Units/L Troponin I 0.50 H* (0-0.03) ng/mL Serum Total Protein (6.0-8.3) g/dL Albumin (3.5-5.0) g/dL Globulin (2.4-3.5) g/dL Albumin/Globulin Ratio (1.1-2.2) Triglycerides (< 150) mg/dL Lipase (8-78) Units/L TSH (0.350-4.840) mcIU/mL Free T4 (0.70-1.48) ng/dl Free T3 (1.71-3.71) pg/mL Urine Color (Yellow) Urine Clarity (Clear) Urine pH (5.0-8.0) pH Units Ur Specific Dana (1.010-1.025) Urine Protein (Neg-Trace) mg/dL Urine Glucose (UA) (Normal) mg/dL Urine Ketones (Negative) mg/dL Urine Blood (Negative) Urine Nitrite (Negative) Urine Bilirubin (Negative) Urine Urobilinogen (Normal) mg/dL Ur Leukocyte Esterase (Negative) Urine Microscopic RBC (0-3) per hpf Urine Microscopic WBC (0-3) per hpf Ur Squamous Epith Cells (None-Few) per lpf Urine Bacteria (None-Few) per hpf Hyaline Casts (None-Few) per lpf Chlamy pneumoniae PCR (Not Detect) Adenovirus (PCR) (Not Detect) B. pertussis DNA (PCR) (Not Detect) Coronavirus OC43 (PCR) (Not Detect) Coronavirus HKU1 (PCR) (Not Detect) Coronavirus 229E (PCR) (Not Detect) Coronavirus NL63 (PCR) (Not Detect) Human Metapneumovirus (Not Detect) Influenza A (H1) PCR (Not Detect) Influ A (H1N1/09) PCR (Not Detect) Influenza A (H3) PCR (Not Detect) Influenza A Untype (PCR) (Not Detect) Influenza Type B (PCR) (Not Detect) M.pneumoniae DNA (PCR) (Not Detect) Parainfluenza 1 (PCR) (Not Detect) Parainfluenza 2 (PCR) (Not Detect) Parainfluenza 3 (PCR) (Not Detect) Parainfluenza 4 (PCR) (Not Detect) RSV (PCR) (Not Detect) Entero/Rhino (PCR) (Not Detect) 11/07/16 11/07/16 11/07/16 Range/Units 09:08 09:22 13:00 WBC (4.3-11.1) K/mcL RBC (3.82-4.97) M/mcL Hgb (11.5-15.4) g/dL Hct (35.3-44.9) % MCV (83.0-100.0) fL MCH (28.0-33.3) pg MCHC (31.6-35.5) g/dL RDW (11.5-14.5) % Plt Count (140-400) K/mcL MPV (9.4-12.4) fL Immature Gran % (0-4) % Seg Neutrophils % % Band Neutrophils % (0-4) % Lymphocytes % % Monocytes % % Eosinophils % % Basophils % % Neutrophils # (1.6-8.9) K/mcL Lymphocytes # (0.6-4.6) K/mcL Monocytes # (0.0-1.3) K/mcL Eosinophils # (0.0-0.6) K/mcL Basophils # (0.0-0.2) K/mcL Nucleated RBCs/100 WBC (0) /100 WBC Hypersegmented Neuts (Not Present) Toxic Granulation (Not Present) Platelet Estimate (Normal) Large Platelets (Not Present) APTT (26.0-36.0) Seconds ABG pH 7.45 D (7.32-7.45) pH Units ABG pCO2 44 (35-45) mmHg ABG pO2 79 L (85-104) mmHg ABG HCO3 30.6 H (21-27) mEQ/L ABG Total CO2 32.0 H (20-26) mEq/L ABG O2 Saturation 96 (95-98) % ABG Base Excess 5.6 H (-2.0 to 3.0) mEq/L Respiration Rate Blood Gas Modality VC+ Inspired O2 90 % Tidal Volume cc PEEP cm H2O Sodium (136-145) mEq/L Potassium (3.5-4.5) mEq/L Chloride (98-109) mEq/L Carbon Dioxide (19-29) mEq/L BUN (7-20) mg/dL Creatinine (0.57-1.11) mg/dL Est GFR ( Amer) (> 60) Est GFR (Non-Af Amer) (> 60) BUN/Creatinine Ratio (6-26) Glucose (70-99) mg/dL POC Glucose 135 H (58-89) Calculated Osmolality (280-300) Lactic Acid (0.5-2.2) mmol/L Calcium (8.6-10.8) mg/dL Ionized Calcium (1.15-1.35) mmol/L Phosphorus (2.3-4.7) mg/dL Magnesium (1.6-2.6) mg/dL Total Bilirubin (0.2-1.2) mg/dL Direct Bilirubin (0.0-0.5) mg/dL Indirect Bilirubin (0.0-1.2) mg/dL AST (5-34) Units/L ALT (0-55) Units/L Alkaline Phosphatase (38-126) Units/L Creatine Kinase (29-168) Units/L Troponin I (0-0.03) ng/mL Serum Total Protein (6.0-8.3) g/dL Albumin (3.5-5.0) g/dL Globulin (2.4-3.5) g/dL Albumin/Globulin Ratio (1.1-2.2) Triglycerides (< 150) mg/dL Lipase (8-78) Units/L TSH 0.583 (0.350-4.840) mcIU/mL Free T4 1.00 (0.70-1.48) ng/dl Free T3 1.73 (1.71-3.71) pg/mL Urine Color (Yellow) Urine Clarity (Clear) Urine pH (5.0-8.0) pH Units Ur Specific Dana (1.010-1.025) Urine Protein (Neg-Trace) mg/dL Urine Glucose (UA) (Normal) mg/dL Urine Ketones (Negative) mg/dL Urine Blood (Negative) Urine Nitrite (Negative) Urine Bilirubin (Negative) Urine Urobilinogen (Normal) mg/dL Ur Leukocyte Esterase (Negative) Urine Microscopic RBC (0-3) per hpf Urine Microscopic WBC (0-3) per hpf Ur Squamous Epith Cells (None-Few) per lpf Urine Bacteria (None-Few) per hpf Hyaline Casts (None-Few) per lpf Chlamy pneumoniae PCR (Not Detect) Adenovirus (PCR) (Not Detect) B. pertussis DNA (PCR) (Not Detect) Coronavirus OC43 (PCR) (Not Detect) Coronavirus HKU1 (PCR) (Not Detect) Coronavirus 229E (PCR) (Not Detect) Coronavirus NL63 (PCR) (Not Detect) Human Metapneumovirus (Not Detect) Influenza A (H1) PCR (Not Detect) Influ A (H1N1/09) PCR (Not Detect) Influenza A (H3) PCR (Not Detect) Influenza A Untype (PCR) (Not Detect) Influenza Type B (PCR) (Not Detect) M.pneumoniae DNA (PCR) (Not Detect) Parainfluenza 1 (PCR) (Not Detect) Parainfluenza 2 (PCR) (Not Detect) Parainfluenza 3 (PCR) (Not Detect) Parainfluenza 4 (PCR) (Not Detect) RSV (PCR) (Not Detect) Entero/Rhino (PCR) (Not Detect) 11/07/16 11/08/16 11/08/16 Range/Units 16:24 00:09 00:09 WBC 13.6 H (4.3-11.1) K/mcL RBC 5.00 H (3.82-4.97) M/mcL Hgb 14.3 (11.5-15.4) g/dL Hct 45.4 H (35.3-44.9) % MCV 90.8 (83.0-100.0) fL MCH 28.6 (28.0-33.3) pg MCHC 31.5 L (31.6-35.5) g/dL RDW 16.2 H (11.5-14.5) % Plt Count 198 (140-400) K/mcL MPV 11.1 (9.4-12.4) fL Immature Gran % 0.6 (0-4) % Seg Neutrophils % 93.3 % Band Neutrophils % (0-4) % Lymphocytes % 1.6 % Monocytes % 4.4 % Eosinophils % 0.0 % Basophils % 0.1 % Neutrophils # 12.7 H (1.6-8.9) K/mcL Lymphocytes # 0.2 L (0.6-4.6) K/mcL Monocytes # 0.6 (0.0-1.3) K/mcL Eosinophils # 0.0 (0.0-0.6) K/mcL Basophils # 0.0 (0.0-0.2) K/mcL Nucleated RBCs/100 WBC 0.3 H (0) /100 WBC Hypersegmented Neuts (Not Present) Toxic Granulation (Not Present) Platelet Estimate (Normal) Large Platelets (Not Present) APTT 82.8 H (26.0-36.0) Seconds ABG pH (7.32-7.45) pH Units ABG pCO2 (35-45) mmHg ABG pO2 (85-104) mmHg ABG HCO3 (21-27) mEQ/L ABG Total CO2 (20-26) mEq/L ABG O2 Saturation (95-98) % ABG Base Excess (-2.0 to 3.0) mEq/L Respiration Rate Blood Gas Modality Inspired O2 % Tidal Volume cc PEEP cm H2O Sodium 138 (136-145) mEq/L Potassium 4.2 D (3.5-4.5) mEq/L Chloride 96 L (98-109) mEq/L Carbon Dioxide 31 H (19-29) mEq/L BUN 50 H (7-20) mg/dL Creatinine 2.13 H (0.57-1.11) mg/dL Est GFR ( Amer) 29 L (> 60) Est GFR (Non-Af Amer) 24 L (> 60) BUN/Creatinine Ratio 23 (6-26) Glucose 202 H (70-99) mg/dL POC Glucose (58-89) Calculated Osmolality 305 H (280-300) Lactic Acid (0.5-2.2) mmol/L Calcium 8.6 (8.6-10.8) mg/dL Ionized Calcium 1.05 L (1.15-1.35) mmol/L Phosphorus 5.6 H (2.3-4.7) mg/dL Magnesium 2.0 (1.6-2.6) mg/dL Total Bilirubin 0.4 (0.2-1.2) mg/dL Direct Bilirubin (0.0-0.5) mg/dL Indirect Bilirubin (0.0-1.2) mg/dL AST 42 H (5-34) Units/L ALT 134 H (0-55) Units/L Alkaline Phosphatase 85 (38-126) Units/L Creatine Kinase (29-168) Units/L Troponin I (0-0.03) ng/mL Serum Total Protein 5.8 L (6.0-8.3) g/dL Albumin 2.8 L (3.5-5.0) g/dL Globulin 3.0 (2.4-3.5) g/dL Albumin/Globulin Ratio 0.9 L (1.1-2.2) Triglycerides (< 150) mg/dL Lipase (8-78) Units/L TSH (0.350-4.840) mcIU/mL Free T4 (0.70-1.48) ng/dl Free T3 (1.71-3.71) pg/mL Urine Color (Yellow) Urine Clarity (Clear) Urine pH (5.0-8.0) pH Units Ur Specific Dana (1.010-1.025) Urine Protein (Neg-Trace) mg/dL Urine Glucose (UA) (Normal) mg/dL Urine Ketones (Negative) mg/dL Urine Blood (Negative) Urine Nitrite (Negative) Urine Bilirubin (Negative) Urine Urobilinogen (Normal) mg/dL Ur Leukocyte Esterase (Negative) Urine Microscopic RBC (0-3) per hpf Urine Microscopic WBC (0-3) per hpf Ur Squamous Epith Cells (None-Few) per lpf Urine Bacteria (None-Few) per hpf Hyaline Casts (None-Few) per lpf Chlamy pneumoniae PCR (Not Detect) Adenovirus (PCR) (Not Detect) B. pertussis DNA (PCR) (Not Detect) Coronavirus OC43 (PCR) (Not Detect) Coronavirus HKU1 (PCR) (Not Detect) Coronavirus 229E (PCR) (Not Detect) Coronavirus NL63 (PCR) (Not Detect) Human Metapneumovirus (Not Detect) Influenza A (H1) PCR (Not Detect) Influ A (H1N1/09) PCR (Not Detect) Influenza A (H3) PCR (Not Detect) Influenza A Untype (PCR) (Not Detect) Influenza Type B (PCR) (Not Detect) M.pneumoniae DNA (PCR) (Not Detect) Parainfluenza 1 (PCR) (Not Detect) Parainfluenza 2 (PCR) (Not Detect) Parainfluenza 3 (PCR) (Not Detect) Parainfluenza 4 (PCR) (Not Detect) RSV (PCR) (Not Detect) Entero/Rhino (PCR) (Not Detect) 11/08/16 11/08/16 11/08/16 Range/Units 00:09 00:27 06:14 WBC (4.3-11.1) K/mcL RBC (3.82-4.97) M/mcL Hgb (11.5-15.4) g/dL Hct (35.3-44.9) % MCV (83.0-100.0) fL MCH (28.0-33.3) pg MCHC (31.6-35.5) g/dL RDW (11.5-14.5) % Plt Count (140-400) K/mcL MPV (9.4-12.4) fL Immature Gran % (0-4) % Seg Neutrophils % % Band Neutrophils % (0-4) % Lymphocytes % % Monocytes % % Eosinophils % % Basophils % % Neutrophils # (1.6-8.9) K/mcL Lymphocytes # (0.6-4.6) K/mcL Monocytes # (0.0-1.3) K/mcL Eosinophils # (0.0-0.6) K/mcL Basophils # (0.0-0.2) K/mcL Nucleated RBCs/100 WBC (0) /100 WBC Hypersegmented Neuts (Not Present) Toxic Granulation (Not Present) Platelet Estimate (Normal) Large Platelets (Not Present) APTT 105.5 H (26.0-36.0) Seconds ABG pH 7.44 (7.32-7.45) pH Units ABG pCO2 53 H (35-45) mmHg ABG pO2 56 L (85-104) mmHg ABG HCO3 36.0 H (21-27) mEQ/L ABG Total CO2 37.6 H (20-26) mEq/L ABG O2 Saturation 90 L (95-98) % ABG Base Excess 9.8 H (-2.0 to 3.0) mEq/L Respiration Rate Blood Gas Modality VC+ Inspired O2 80 % Tidal Volume cc PEEP cm H2O Sodium (136-145) mEq/L Potassium (3.5-4.5) mEq/L Chloride (98-109) mEq/L Carbon Dioxide (19-29) mEq/L BUN (7-20) mg/dL Creatinine (0.57-1.11) mg/dL Est GFR ( Amer) (> 60) Est GFR (Non-Af Amer) (> 60) BUN/Creatinine Ratio (6-26) Glucose (70-99) mg/dL POC Glucose 204 H (58-89) Calculated Osmolality (280-300) Lactic Acid (0.5-2.2) mmol/L Calcium (8.6-10.8) mg/dL Ionized Calcium (1.15-1.35) mmol/L Phosphorus (2.3-4.7) mg/dL Magnesium (1.6-2.6) mg/dL Total Bilirubin (0.2-1.2) mg/dL Direct Bilirubin (0.0-0.5) mg/dL Indirect Bilirubin (0.0-1.2) mg/dL AST (5-34) Units/L ALT (0-55) Units/L Alkaline Phosphatase (38-126) Units/L Creatine Kinase (29-168) Units/L Troponin I (0-0.03) ng/mL Serum Total Protein (6.0-8.3) g/dL Albumin (3.5-5.0) g/dL Globulin (2.4-3.5) g/dL Albumin/Globulin Ratio (1.1-2.2) Triglycerides (< 150) mg/dL Lipase (8-78) Units/L TSH (0.350-4.840) mcIU/mL Free T4 (0.70-1.48) ng/dl Free T3 (1.71-3.71) pg/mL Urine Color (Yellow) Urine Clarity (Clear) Urine pH (5.0-8.0) pH Units Ur Specific Dana (1.010-1.025) Urine Protein (Neg-Trace) mg/dL Urine Glucose (UA) (Normal) mg/dL Urine Ketones (Negative) mg/dL Urine Blood (Negative) Urine Nitrite (Negative) Urine Bilirubin (Negative) Urine Urobilinogen (Normal) mg/dL Ur Leukocyte Esterase (Negative) Urine Microscopic RBC (0-3) per hpf Urine Microscopic WBC (0-3) per hpf Ur Squamous Epith Cells (None-Few) per lpf Urine Bacteria (None-Few) per hpf Hyaline Casts (None-Few) per lpf Chlamy pneumoniae PCR (Not Detect) Adenovirus (PCR) (Not Detect) B. pertussis DNA (PCR) (Not Detect) Coronavirus OC43 (PCR) (Not Detect) Coronavirus HKU1 (PCR) (Not Detect) Coronavirus 229E (PCR) (Not Detect) Coronavirus NL63 (PCR) (Not Detect) Human Metapneumovirus (Not Detect) Influenza A (H1) PCR (Not Detect) Influ A (H1N1/09) PCR (Not Detect) Influenza A (H3) PCR (Not Detect) Influenza A Untype (PCR) (Not Detect) Influenza Type B (PCR) (Not Detect) M.pneumoniae DNA (PCR) (Not Detect) Parainfluenza 1 (PCR) (Not Detect) Parainfluenza 2 (PCR) (Not Detect) Parainfluenza 3 (PCR) (Not Detect) Parainfluenza 4 (PCR) (Not Detect) RSV (PCR) (Not Detect) Entero/Rhino (PCR) (Not Detect) 11/08/16 11/08/16 11/08/16 Range/Units 06:20 06:46 07:38 WBC (4.3-11.1) K/mcL RBC (3.82-4.97) M/mcL Hgb (11.5-15.4) g/dL Hct (35.3-44.9) % MCV (83.0-100.0) fL MCH (28.0-33.3) pg MCHC (31.6-35.5) g/dL RDW (11.5-14.5) % Plt Count (140-400) K/mcL MPV (9.4-12.4) fL Immature Gran % (0-4) % Seg Neutrophils % % Band Neutrophils % (0-4) % Lymphocytes % % Monocytes % % Eosinophils % % Basophils % % Neutrophils # (1.6-8.9) K/mcL Lymphocytes # (0.6-4.6) K/mcL Monocytes # (0.0-1.3) K/mcL Eosinophils # (0.0-0.6) K/mcL Basophils # (0.0-0.2) K/mcL Nucleated RBCs/100 WBC (0) /100 WBC Hypersegmented Neuts (Not Present) Toxic Granulation (Not Present) Platelet Estimate (Normal) Large Platelets (Not Present) APTT 77.8 H (26.0-36.0) Seconds ABG pH (7.32-7.45) pH Units ABG pCO2 (35-45) mmHg ABG pO2 (85-104) mmHg ABG HCO3 (21-27) mEQ/L ABG Total CO2 (20-26) mEq/L ABG O2 Saturation (95-98) % ABG Base Excess (-2.0 to 3.0) mEq/L Respiration Rate Blood Gas Modality Inspired O2 % Tidal Volume cc PEEP cm H2O Sodium (136-145) mEq/L Potassium (3.5-4.5) mEq/L Chloride (98-109) mEq/L Carbon Dioxide (19-29) mEq/L BUN (7-20) mg/dL Creatinine (0.57-1.11) mg/dL Est GFR ( Amer) (> 60) Est GFR (Non-Af Amer) (> 60) BUN/Creatinine Ratio (6-26) Glucose (70-99) mg/dL POC Glucose 204 H (58-89) Calculated Osmolality (280-300) Lactic Acid (0.5-2.2) mmol/L Calcium (8.6-10.8) mg/dL Ionized Calcium (1.15-1.35) mmol/L Phosphorus (2.3-4.7) mg/dL Magnesium (1.6-2.6) mg/dL Total Bilirubin 0.4 (0.2-1.2) mg/dL Direct Bilirubin 0.3 (0.0-0.5) mg/dL Indirect Bilirubin 0.1 (0.0-1.2) mg/dL AST 31 (5-34) Units/L ALT 121 H (0-55) Units/L Alkaline Phosphatase 83 (38-126) Units/L Creatine Kinase (29-168) Units/L Troponin I (0-0.03) ng/mL Serum Total Protein 5.9 L (6.0-8.3) g/dL Albumin 2.7 L (3.5-5.0) g/dL Globulin 3.2 (2.4-3.5) g/dL Albumin/Globulin Ratio 0.8 L (1.1-2.2) Triglycerides (< 150) mg/dL Lipase (8-78) Units/L TSH (0.350-4.840) mcIU/mL Free T4 (0.70-1.48) ng/dl Free T3 (1.71-3.71) pg/mL Urine Color (Yellow) Urine Clarity (Clear) Urine pH (5.0-8.0) pH Units Ur Specific Dana (1.010-1.025) Urine Protein (Neg-Trace) mg/dL Urine Glucose (UA) (Normal) mg/dL Urine Ketones (Negative) mg/dL Urine Blood (Negative) Urine Nitrite (Negative) Urine Bilirubin (Negative) Urine Urobilinogen (Normal) mg/dL Ur Leukocyte Esterase (Negative) Urine Microscopic RBC (0-3) per hpf Urine Microscopic WBC (0-3) per hpf Ur Squamous Epith Cells (None-Few) per lpf Urine Bacteria (None-Few) per hpf Hyaline Casts (None-Few) per lpf Chlamy pneumoniae PCR (Not Detect) Adenovirus (PCR) (Not Detect) B. pertussis DNA (PCR) (Not Detect) Coronavirus OC43 (PCR) (Not Detect) Coronavirus HKU1 (PCR) (Not Detect) Coronavirus 229E (PCR) (Not Detect) Coronavirus NL63 (PCR) (Not Detect) Human Metapneumovirus (Not Detect) Influenza A (H1) PCR (Not Detect) Influ A (H1N1/09) PCR (Not Detect) Influenza A (H3) PCR (Not Detect) Influenza A Untype (PCR) (Not Detect) Influenza Type B (PCR) (Not Detect) M.pneumoniae DNA (PCR) (Not Detect) Parainfluenza 1 (PCR) (Not Detect) Parainfluenza 2 (PCR) (Not Detect) Parainfluenza 3 (PCR) (Not Detect) Parainfluenza 4 (PCR) (Not Detect) RSV (PCR) (Not Detect) Entero/Rhino (PCR) (Not Detect) 11/08/16 11/08/16 11/08/16 Range/Units 11:20 13:25 15:57 WBC (4.3-11.1) K/mcL RBC (3.82-4.97) M/mcL Hgb (11.5-15.4) g/dL Hct (35.3-44.9) % MCV (83.0-100.0) fL MCH (28.0-33.3) pg MCHC (31.6-35.5) g/dL RDW (11.5-14.5) % Plt Count (140-400) K/mcL MPV (9.4-12.4) fL Immature Gran % (0-4) % Seg Neutrophils % % Band Neutrophils % (0-4) % Lymphocytes % % Monocytes % % Eosinophils % % Basophils % % Neutrophils # (1.6-8.9) K/mcL Lymphocytes # (0.6-4.6) K/mcL Monocytes # (0.0-1.3) K/mcL Eosinophils # (0.0-0.6) K/mcL Basophils # (0.0-0.2) K/mcL Nucleated RBCs/100 WBC (0) /100 WBC Hypersegmented Neuts (Not Present) Toxic Granulation (Not Present) Platelet Estimate (Normal) Large Platelets (Not Present) APTT 60.3 H (26.0-36.0) Seconds ABG pH (7.32-7.45) pH Units ABG pCO2 (35-45) mmHg ABG pO2 (85-104) mmHg ABG HCO3 (21-27) mEQ/L ABG Total CO2 (20-26) mEq/L ABG O2 Saturation (95-98) % ABG Base Excess (-2.0 to 3.0) mEq/L Respiration Rate Blood Gas Modality Inspired O2 % Tidal Volume cc PEEP cm H2O Sodium (136-145) mEq/L Potassium (3.5-4.5) mEq/L Chloride (98-109) mEq/L Carbon Dioxide (19-29) mEq/L BUN (7-20) mg/dL Creatinine (0.57-1.11) mg/dL Est GFR ( Amer) (> 60) Est GFR (Non-Af Amer) (> 60) BUN/Creatinine Ratio (6-26) Glucose (70-99) mg/dL POC Glucose 189 H 140 H (58-89) Calculated Osmolality (280-300) Lactic Acid (0.5-2.2) mmol/L Calcium (8.6-10.8) mg/dL Ionized Calcium (1.15-1.35) mmol/L Phosphorus (2.3-4.7) mg/dL Magnesium (1.6-2.6) mg/dL Total Bilirubin (0.2-1.2) mg/dL Direct Bilirubin (0.0-0.5) mg/dL Indirect Bilirubin (0.0-1.2) mg/dL AST (5-34) Units/L ALT (0-55) Units/L Alkaline Phosphatase (38-126) Units/L Creatine Kinase (29-168) Units/L Troponin I (0-0.03) ng/mL Serum Total Protein (6.0-8.3) g/dL Albumin (3.5-5.0) g/dL Globulin (2.4-3.5) g/dL Albumin/Globulin Ratio (1.1-2.2) Triglycerides (< 150) mg/dL Lipase (8-78) Units/L TSH (0.350-4.840) mcIU/mL Free T4 (0.70-1.48) ng/dl Free T3 (1.71-3.71) pg/mL Urine Color (Yellow) Urine Clarity (Clear) Urine pH (5.0-8.0) pH Units Ur Specific Dana (1.010-1.025) Urine Protein (Neg-Trace) mg/dL Urine Glucose (UA) (Normal) mg/dL Urine Ketones (Negative) mg/dL Urine Blood (Negative) Urine Nitrite (Negative) Urine Bilirubin (Negative) Urine Urobilinogen (Normal) mg/dL Ur Leukocyte Esterase (Negative) Urine Microscopic RBC (0-3) per hpf Urine Microscopic WBC (0-3) per hpf Ur Squamous Epith Cells (None-Few) per lpf Urine Bacteria (None-Few) per hpf Hyaline Casts (None-Few) per lpf Chlamy pneumoniae PCR (Not Detect) Adenovirus (PCR) (Not Detect) B. pertussis DNA (PCR) (Not Detect) Coronavirus OC43 (PCR) (Not Detect) Coronavirus HKU1 (PCR) (Not Detect) Coronavirus 229E (PCR) (Not Detect) Coronavirus NL63 (PCR) (Not Detect) Human Metapneumovirus (Not Detect) Influenza A (H1) PCR (Not Detect) Influ A (H1N1/09) PCR (Not Detect) Influenza A (H3) PCR (Not Detect) Influenza A Untype (PCR) (Not Detect) Influenza Type B (PCR) (Not Detect) M.pneumoniae DNA (PCR) (Not Detect) Parainfluenza 1 (PCR) (Not Detect) Parainfluenza 2 (PCR) (Not Detect) Parainfluenza 3 (PCR) (Not Detect) Parainfluenza 4 (PCR) (Not Detect) RSV (PCR) (Not Detect) Entero/Rhino (PCR) (Not Detect) 11/09/16 11/09/16 11/09/16 Range/Units 03:03 03:03 05:24 WBC 13.5 H (4.3-11.1) K/mcL RBC 4.83 (3.82-4.97) M/mcL Hgb 13.8 (11.5-15.4) g/dL Hct 43.9 (35.3-44.9) % MCV 90.9 (83.0-100.0) fL MCH 28.6 (28.0-33.3) pg MCHC 31.4 L (31.6-35.5) g/dL RDW 16.4 H (11.5-14.5) % Plt Count 197 (140-400) K/mcL MPV 11.0 (9.4-12.4) fL Immature Gran % 0.7 (0-4) % Seg Neutrophils % 91.2 % Band Neutrophils % (0-4) % Lymphocytes % 1.8 % Monocytes % 6.2 % Eosinophils % 0.0 % Basophils % 0.1 % Neutrophils # 12.3 H (1.6-8.9) K/mcL Lymphocytes # 0.3 L (0.6-4.6) K/mcL Monocytes # 0.8 (0.0-1.3) K/mcL Eosinophils # 0.0 (0.0-0.6) K/mcL Basophils # 0.0 (0.0-0.2) K/mcL Nucleated RBCs/100 WBC 0.2 H (0) /100 WBC Hypersegmented Neuts (Not Present) Toxic Granulation (Not Present) Platelet Estimate (Normal) Large Platelets (Not Present) APTT (26.0-36.0) Seconds ABG pH (7.32-7.45) pH Units ABG pCO2 (35-45) mmHg ABG pO2 (85-104) mmHg ABG HCO3 (21-27) mEQ/L ABG Total CO2 (20-26) mEq/L ABG O2 Saturation (95-98) % ABG Base Excess (-2.0 to 3.0) mEq/L Respiration Rate Blood Gas Modality Inspired O2 % Tidal Volume cc PEEP cm H2O Sodium 135 L (136-145) mEq/L Potassium 4.6 H (3.5-4.5) mEq/L Chloride 94 L (98-109) mEq/L Carbon Dioxide 29 (19-29) mEq/L BUN 52 H (7-20) mg/dL Creatinine 2.07 H (0.57-1.11) mg/dL Est GFR ( Amer) 30 L (> 60) Est GFR (Non-Af Amer) 24 L (> 60) BUN/Creatinine Ratio 25 (6-26) Glucose 150 H (70-99) mg/dL POC Glucose (58-89) Calculated Osmolality 297 (280-300) Lactic Acid (0.5-2.2) mmol/L Calcium 8.3 L (8.6-10.8) mg/dL Ionized Calcium 1.04 L (1.15-1.35) mmol/L Phosphorus 5.7 H (2.3-4.7) mg/dL Magnesium 2.1 (1.6-2.6) mg/dL Total Bilirubin 0.4 (0.2-1.2) mg/dL Direct Bilirubin (0.0-0.5) mg/dL Indirect Bilirubin (0.0-1.2) mg/dL AST 22 (5-34) Units/L ALT 91 H (0-55) Units/L Alkaline Phosphatase 72 (38-126) Units/L Creatine Kinase (29-168) Units/L Troponin I (0-0.03) ng/mL Serum Total Protein 5.6 L (6.0-8.3) g/dL Albumin 2.6 L (3.5-5.0) g/dL Globulin 3.0 (2.4-3.5) g/dL Albumin/Globulin Ratio 0.9 L (1.1-2.2) Triglycerides (< 150) mg/dL Lipase (8-78) Units/L TSH (0.350-4.840) mcIU/mL Free T4 (0.70-1.48) ng/dl Free T3 (1.71-3.71) pg/mL Urine Color (Yellow) Urine Clarity (Clear) Urine pH (5.0-8.0) pH Units Ur Specific Dana (1.010-1.025) Urine Protein (Neg-Trace) mg/dL Urine Glucose (UA) (Normal) mg/dL Urine Ketones (Negative) mg/dL Urine Blood (Negative) Urine Nitrite (Negative) Urine Bilirubin (Negative) Urine Urobilinogen (Normal) mg/dL Ur Leukocyte Esterase (Negative) Urine Microscopic RBC (0-3) per hpf Urine Microscopic WBC (0-3) per hpf Ur Squamous Epith Cells (None-Few) per lpf Urine Bacteria (None-Few) per hpf Hyaline Casts (None-Few) per lpf Chlamy pneumoniae PCR (Not Detect) Adenovirus (PCR) (Not Detect) B. pertussis DNA (PCR) (Not Detect) Coronavirus OC43 (PCR) (Not Detect) Coronavirus HKU1 (PCR) (Not Detect) Coronavirus 229E (PCR) (Not Detect) Coronavirus NL63 (PCR) (Not Detect) Human Metapneumovirus (Not Detect) Influenza A (H1) PCR (Not Detect) Influ A (H1N1/09) PCR (Not Detect) Influenza A (H3) PCR (Not Detect) Influenza A Untype (PCR) (Not Detect) Influenza Type B (PCR) (Not Detect) M.pneumoniae DNA (PCR) (Not Detect) Parainfluenza 1 (PCR) (Not Detect) Parainfluenza 2 (PCR) (Not Detect) Parainfluenza 3 (PCR) (Not Detect) Parainfluenza 4 (PCR) (Not Detect) RSV (PCR) (Not Detect) Entero/Rhino (PCR) (Not Detect) 11/09/16 11/09/16 11/09/16 Range/Units 06:02 06:37 11:39 WBC (4.3-11.1) K/mcL RBC (3.82-4.97) M/mcL Hgb (11.5-15.4) g/dL Hct (35.3-44.9) % MCV (83.0-100.0) fL MCH (28.0-33.3) pg MCHC (31.6-35.5) g/dL RDW (11.5-14.5) % Plt Count (140-400) K/mcL MPV (9.4-12.4) fL Immature Gran % (0-4) % Seg Neutrophils % % Band Neutrophils % (0-4) % Lymphocytes % % Monocytes % % Eosinophils % % Basophils % % Neutrophils # (1.6-8.9) K/mcL Lymphocytes # (0.6-4.6) K/mcL Monocytes # (0.0-1.3) K/mcL Eosinophils # (0.0-0.6) K/mcL Basophils # (0.0-0.2) K/mcL Nucleated RBCs/100 WBC (0) /100 WBC Hypersegmented Neuts (Not Present) Toxic Granulation (Not Present) Platelet Estimate (Normal) Large Platelets (Not Present) APTT (26.0-36.0) Seconds ABG pH 7.35 (7.32-7.45) pH Units ABG pCO2 70 H* (35-45) mmHg ABG pO2 58 L (85-104) mmHg ABG HCO3 38.6 H (21-27) mEQ/L ABG Total CO2 40.7 H (20-26) mEq/L ABG O2 Saturation 88 L (95-98) % ABG Base Excess 9.8 H (-2.0 to 3.0) mEq/L Respiration Rate Blood Gas Modality VCT Inspired O2 100 % Tidal Volume cc PEEP cm H2O Sodium (136-145) mEq/L Potassium (3.5-4.5) mEq/L Chloride (98-109) mEq/L Carbon Dioxide (19-29) mEq/L BUN (7-20) mg/dL Creatinine (0.57-1.11) mg/dL Est GFR ( Amer) (> 60) Est GFR (Non-Af Amer) (> 60) BUN/Creatinine Ratio (6-26) Glucose (70-99) mg/dL POC Glucose 169 H 193 H (58-89) Calculated Osmolality (280-300) Lactic Acid (0.5-2.2) mmol/L Calcium (8.6-10.8) mg/dL Ionized Calcium (1.15-1.35) mmol/L Phosphorus (2.3-4.7) mg/dL Magnesium (1.6-2.6) mg/dL Total Bilirubin (0.2-1.2) mg/dL Direct Bilirubin (0.0-0.5) mg/dL Indirect Bilirubin (0.0-1.2) mg/dL AST (5-34) Units/L ALT (0-55) Units/L Alkaline Phosphatase (38-126) Units/L Creatine Kinase (29-168) Units/L Troponin I (0-0.03) ng/mL Serum Total Protein (6.0-8.3) g/dL Albumin (3.5-5.0) g/dL Globulin (2.4-3.5) g/dL Albumin/Globulin Ratio (1.1-2.2) Triglycerides (< 150) mg/dL Lipase (8-78) Units/L TSH (0.350-4.840) mcIU/mL Free T4 (0.70-1.48) ng/dl Free T3 (1.71-3.71) pg/mL Urine Color (Yellow) Urine Clarity (Clear) Urine pH (5.0-8.0) pH Units Ur Specific Dana (1.010-1.025) Urine Protein (Neg-Trace) mg/dL Urine Glucose (UA) (Normal) mg/dL Urine Ketones (Negative) mg/dL Urine Blood (Negative) Urine Nitrite (Negative) Urine Bilirubin (Negative) Urine Urobilinogen (Normal) mg/dL Ur Leukocyte Esterase (Negative) Urine Microscopic RBC (0-3) per hpf Urine Microscopic WBC (0-3) per hpf Ur Squamous Epith Cells (None-Few) per lpf Urine Bacteria (None-Few) per hpf Hyaline Casts (None-Few) per lpf Chlamy pneumoniae PCR (Not Detect) Adenovirus (PCR) (Not Detect) B. pertussis DNA (PCR) (Not Detect) Coronavirus OC43 (PCR) (Not Detect) Coronavirus HKU1 (PCR) (Not Detect) Coronavirus 229E (PCR) (Not Detect) Coronavirus NL63 (PCR) (Not Detect) Human Metapneumovirus (Not Detect) Influenza A (H1) PCR (Not Detect) Influ A (H1N1/09) PCR (Not Detect) Influenza A (H3) PCR (Not Detect) Influenza A Untype (PCR) (Not Detect) Influenza Type B (PCR) (Not Detect) M.pneumoniae DNA (PCR) (Not Detect) Parainfluenza 1 (PCR) (Not Detect) Parainfluenza 2 (PCR) (Not Detect) Parainfluenza 3 (PCR) (Not Detect) Parainfluenza 4 (PCR) (Not Detect) RSV (PCR) (Not Detect) Entero/Rhino (PCR) (Not Detect) 11/09/16 11/09/16 11/09/16 Range/Units 11:40 13:17 13:20 WBC (4.3-11.1) K/mcL RBC (3.82-4.97) M/mcL Hgb (11.5-15.4) g/dL Hct (35.3-44.9) % MCV (83.0-100.0) fL MCH (28.0-33.3) pg MCHC (31.6-35.5) g/dL RDW (11.5-14.5) % Plt Count (140-400) K/mcL MPV (9.4-12.4) fL Immature Gran % (0-4) % Seg Neutrophils % % Band Neutrophils % (0-4) % Lymphocytes % % Monocytes % % Eosinophils % % Basophils % % Neutrophils # (1.6-8.9) K/mcL Lymphocytes # (0.6-4.6) K/mcL Monocytes # (0.0-1.3) K/mcL Eosinophils # (0.0-0.6) K/mcL Basophils # (0.0-0.2) K/mcL Nucleated RBCs/100 WBC (0) /100 WBC Hypersegmented Neuts (Not Present) Toxic Granulation (Not Present) Platelet Estimate (Normal) Large Platelets (Not Present) APTT 39.9 H (26.0-36.0) Seconds ABG pH 7.38 7.35 (7.32-7.45) pH Units ABG pCO2 61 H 66 H (35-45) mmHg ABG pO2 53 L 56 L (85-104) mmHg ABG HCO3 36.1 H 36.4 H (21-27) mEQ/L ABG Total CO2 38.0 H 38.4 H (20-26) mEq/L ABG O2 Saturation 86 L 87 L (95-98) % ABG Base Excess 8.2 H 7.8 H (-2.0 to 3.0) mEq/L Respiration Rate Blood Gas Modality VCT VC+ Inspired O2 100 100 % Tidal Volume cc PEEP cm H2O Sodium (136-145) mEq/L Potassium (3.5-4.5) mEq/L Chloride (98-109) mEq/L Carbon Dioxide (19-29) mEq/L BUN (7-20) mg/dL Creatinine (0.57-1.11) mg/dL Est GFR ( Amer) (> 60) Est GFR (Non-Af Amer) (> 60) BUN/Creatinine Ratio (6-26) Glucose (70-99) mg/dL POC Glucose (58-89) Calculated Osmolality (280-300) Lactic Acid (0.5-2.2) mmol/L Calcium (8.6-10.8) mg/dL Ionized Calcium (1.15-1.35) mmol/L Phosphorus (2.3-4.7) mg/dL Magnesium (1.6-2.6) mg/dL Total Bilirubin (0.2-1.2) mg/dL Direct Bilirubin (0.0-0.5) mg/dL Indirect Bilirubin (0.0-1.2) mg/dL AST (5-34) Units/L ALT (0-55) Units/L Alkaline Phosphatase (38-126) Units/L Creatine Kinase (29-168) Units/L Troponin I (0-0.03) ng/mL Serum Total Protein (6.0-8.3) g/dL Albumin (3.5-5.0) g/dL Globulin (2.4-3.5) g/dL Albumin/Globulin Ratio (1.1-2.2) Triglycerides (< 150) mg/dL Lipase (8-78) Units/L TSH (0.350-4.840) mcIU/mL Free T4 (0.70-1.48) ng/dl Free T3 (1.71-3.71) pg/mL Urine Color (Yellow) Urine Clarity (Clear) Urine pH (5.0-8.0) pH Units Ur Specific Dana (1.010-1.025) Urine Protein (Neg-Trace) mg/dL Urine Glucose (UA) (Normal) mg/dL Urine Ketones (Negative) mg/dL Urine Blood (Negative) Urine Nitrite (Negative) Urine Bilirubin (Negative) Urine Urobilinogen (Normal) mg/dL Ur Leukocyte Esterase (Negative) Urine Microscopic RBC (0-3) per hpf Urine Microscopic WBC (0-3) per hpf Ur Squamous Epith Cells (None-Few) per lpf Urine Bacteria (None-Few) per hpf Hyaline Casts (None-Few) per lpf Chlamy pneumoniae PCR (Not Detect) Adenovirus (PCR) (Not Detect) B. pertussis DNA (PCR) (Not Detect) Coronavirus OC43 (PCR) (Not Detect) Coronavirus HKU1 (PCR) (Not Detect) Coronavirus 229E (PCR) (Not Detect) Coronavirus NL63 (PCR) (Not Detect) Human Metapneumovirus (Not Detect) Influenza A (H1) PCR (Not Detect) Influ A (H1N1/09) PCR (Not Detect) Influenza A (H3) PCR (Not Detect) Influenza A Untype (PCR) (Not Detect) Influenza Type B (PCR) (Not Detect) M.pneumoniae DNA (PCR) (Not Detect) Parainfluenza 1 (PCR) (Not Detect) Parainfluenza 2 (PCR) (Not Detect) Parainfluenza 3 (PCR) (Not Detect) Parainfluenza 4 (PCR) (Not Detect) RSV (PCR) (Not Detect) Entero/Rhino (PCR) (Not Detect) 11/09/16 11/09/16 11/09/16 Range/Units 16:14 17:02 18:15 WBC (4.3-11.1) K/mcL RBC (3.82-4.97) M/mcL Hgb (11.5-15.4) g/dL Hct (35.3-44.9) % MCV (83.0-100.0) fL MCH (28.0-33.3) pg MCHC (31.6-35.5) g/dL RDW (11.5-14.5) % Plt Count (140-400) K/mcL MPV (9.4-12.4) fL Immature Gran % (0-4) % Seg Neutrophils % % Band Neutrophils % (0-4) % Lymphocytes % % Monocytes % % Eosinophils % % Basophils % % Neutrophils # (1.6-8.9) K/mcL Lymphocytes # (0.6-4.6) K/mcL Monocytes # (0.0-1.3) K/mcL Eosinophils # (0.0-0.6) K/mcL Basophils # (0.0-0.2) K/mcL Nucleated RBCs/100 WBC (0) /100 WBC Hypersegmented Neuts (Not Present) Toxic Granulation (Not Present) Platelet Estimate (Normal) Large Platelets (Not Present) APTT (26.0-36.0) Seconds ABG pH 7.43 7.40 (7.32-7.45) pH Units ABG pCO2 56 H 61 H (35-45) mmHg ABG pO2 54 L 55 L (85-104) mmHg ABG HCO3 37.2 H 37.8 H (21-27) mEQ/L ABG Total CO2 38.9 H 39.7 H (20-26) mEq/L ABG O2 Saturation 89 L 88 L (95-98) % ABG Base Excess 10.5 H 10.3 H (-2.0 to 3.0) mEq/L Respiration Rate Blood Gas Modality ASSIST CONTROL VC Inspired O2 100 100 % Tidal Volume cc PEEP 16 cm H2O Sodium (136-145) mEq/L Potassium (3.5-4.5) mEq/L Chloride (98-109) mEq/L Carbon Dioxide (19-29) mEq/L BUN (7-20) mg/dL Creatinine (0.57-1.11) mg/dL Est GFR ( Amer) (> 60) Est GFR (Non-Af Amer) (> 60) BUN/Creatinine Ratio (6-26) Glucose (70-99) mg/dL POC Glucose 171 H (58-89) Calculated Osmolality (280-300) Lactic Acid (0.5-2.2) mmol/L Calcium (8.6-10.8) mg/dL Ionized Calcium (1.15-1.35) mmol/L Phosphorus (2.3-4.7) mg/dL Magnesium (1.6-2.6) mg/dL Total Bilirubin (0.2-1.2) mg/dL Direct Bilirubin (0.0-0.5) mg/dL Indirect Bilirubin (0.0-1.2) mg/dL AST (5-34) Units/L ALT (0-55) Units/L Alkaline Phosphatase (38-126) Units/L Creatine Kinase (29-168) Units/L Troponin I (0-0.03) ng/mL Serum Total Protein (6.0-8.3) g/dL Albumin (3.5-5.0) g/dL Globulin (2.4-3.5) g/dL Albumin/Globulin Ratio (1.1-2.2) Triglycerides (< 150) mg/dL Lipase (8-78) Units/L TSH (0.350-4.840) mcIU/mL Free T4 (0.70-1.48) ng/dl Free T3 (1.71-3.71) pg/mL Urine Color (Yellow) Urine Clarity (Clear) Urine pH (5.0-8.0) pH Units Ur Specific Dana (1.010-1.025) Urine Protein (Neg-Trace) mg/dL Urine Glucose (UA) (Normal) mg/dL Urine Ketones (Negative) mg/dL Urine Blood (Negative) Urine Nitrite (Negative) Urine Bilirubin (Negative) Urine Urobilinogen (Normal) mg/dL Ur Leukocyte Esterase (Negative) Urine Microscopic RBC (0-3) per hpf Urine Microscopic WBC (0-3) per hpf Ur Squamous Epith Cells (None-Few) per lpf Urine Bacteria (None-Few) per hpf Hyaline Casts (None-Few) per lpf Chlamy pneumoniae PCR (Not Detect) Adenovirus (PCR) (Not Detect) B. pertussis DNA (PCR) (Not Detect) Coronavirus OC43 (PCR) (Not Detect) Coronavirus HKU1 (PCR) (Not Detect) Coronavirus 229E (PCR) (Not Detect) Coronavirus NL63 (PCR) (Not Detect) Human Metapneumovirus (Not Detect) Influenza A (H1) PCR (Not Detect) Influ A (H1N1/09) PCR (Not Detect) Influenza A (H3) PCR (Not Detect) Influenza A Untype (PCR) (Not Detect) Influenza Type B (PCR) (Not Detect) M.pneumoniae DNA (PCR) (Not Detect) Parainfluenza 1 (PCR) (Not Detect) Parainfluenza 2 (PCR) (Not Detect) Parainfluenza 3 (PCR) (Not Detect) Parainfluenza 4 (PCR) (Not Detect) RSV (PCR) (Not Detect) Entero/Rhino (PCR) (Not Detect) 11/09/16 11/09/16 11/10/16 Range/Units 20:00 23:50 02:00 WBC 13.8 H (4.3-11.1) K/mcL RBC 4.71 (3.82-4.97) M/mcL Hgb 13.3 (11.5-15.4) g/dL Hct 42.7 (35.3-44.9) % MCV 90.7 (83.0-100.0) fL MCH 28.2 (28.0-33.3) pg MCHC 31.1 L (31.6-35.5) g/dL RDW 16.3 H (11.5-14.5) % Plt Count 183 (140-400) K/mcL MPV 10.8 (9.4-12.4) fL Immature Gran % 0.5 (0-4) % Seg Neutrophils % 89.1 % Band Neutrophils % (0-4) % Lymphocytes % 1.6 % Monocytes % 8.7 % Eosinophils % 0.0 % Basophils % 0.1 % Neutrophils # 12.3 H (1.6-8.9) K/mcL Lymphocytes # 0.2 L (0.6-4.6) K/mcL Monocytes # 1.2 (0.0-1.3) K/mcL Eosinophils # 0.0 (0.0-0.6) K/mcL Basophils # 0.0 (0.0-0.2) K/mcL Nucleated RBCs/100 WBC 0.3 H (0) /100 WBC Hypersegmented Neuts (Not Present) Toxic Granulation (Not Present) Platelet Estimate (Normal) Large Platelets (Not Present) APTT 62.4 H D (26.0-36.0) Seconds ABG pH (7.32-7.45) pH Units ABG pCO2 (35-45) mmHg ABG pO2 (85-104) mmHg ABG HCO3 (21-27) mEQ/L ABG Total CO2 (20-26) mEq/L ABG O2 Saturation (95-98) % ABG Base Excess (-2.0 to 3.0) mEq/L Respiration Rate Blood Gas Modality Inspired O2 % Tidal Volume cc PEEP cm H2O Sodium (136-145) mEq/L Potassium (3.5-4.5) mEq/L Chloride (98-109) mEq/L Carbon Dioxide (19-29) mEq/L BUN (7-20) mg/dL Creatinine (0.57-1.11) mg/dL Est GFR ( Amer) (> 60) Est GFR (Non-Af Amer) (> 60) BUN/Creatinine Ratio (6-26) Glucose (70-99) mg/dL POC Glucose 195 H (58-89) Calculated Osmolality (280-300) Lactic Acid (0.5-2.2) mmol/L Calcium (8.6-10.8) mg/dL Ionized Calcium (1.15-1.35) mmol/L Phosphorus (2.3-4.7) mg/dL Magnesium (1.6-2.6) mg/dL Total Bilirubin (0.2-1.2) mg/dL Direct Bilirubin (0.0-0.5) mg/dL Indirect Bilirubin (0.0-1.2) mg/dL AST (5-34) Units/L ALT (0-55) Units/L Alkaline Phosphatase (38-126) Units/L Creatine Kinase (29-168) Units/L Troponin I (0-0.03) ng/mL Serum Total Protein (6.0-8.3) g/dL Albumin (3.5-5.0) g/dL Globulin (2.4-3.5) g/dL Albumin/Globulin Ratio (1.1-2.2) Triglycerides (< 150) mg/dL Lipase (8-78) Units/L TSH (0.350-4.840) mcIU/mL Free T4 (0.70-1.48) ng/dl Free T3 (1.71-3.71) pg/mL Urine Color (Yellow) Urine Clarity (Clear) Urine pH (5.0-8.0) pH Units Ur Specific Dana (1.010-1.025) Urine Protein (Neg-Trace) mg/dL Urine Glucose (UA) (Normal) mg/dL Urine Ketones (Negative) mg/dL Urine Blood (Negative) Urine Nitrite (Negative) Urine Bilirubin (Negative) Urine Urobilinogen (Normal) mg/dL Ur Leukocyte Esterase (Negative) Urine Microscopic RBC (0-3) per hpf Urine Microscopic WBC (0-3) per hpf Ur Squamous Epith Cells (None-Few) per lpf Urine Bacteria (None-Few) per hpf Hyaline Casts (None-Few) per lpf Chlamy pneumoniae PCR (Not Detect) Adenovirus (PCR) (Not Detect) B. pertussis DNA (PCR) (Not Detect) Coronavirus OC43 (PCR) (Not Detect) Coronavirus HKU1 (PCR) (Not Detect) Coronavirus 229E (PCR) (Not Detect) Coronavirus NL63 (PCR) (Not Detect) Human Metapneumovirus (Not Detect) Influenza A (H1) PCR (Not Detect) Influ A (H1N1/09) PCR (Not Detect) Influenza A (H3) PCR (Not Detect) Influenza A Untype (PCR) (Not Detect) Influenza Type B (PCR) (Not Detect) M.pneumoniae DNA (PCR) (Not Detect) Parainfluenza 1 (PCR) (Not Detect) Parainfluenza 2 (PCR) (Not Detect) Parainfluenza 3 (PCR) (Not Detect) Parainfluenza 4 (PCR) (Not Detect) RSV (PCR) (Not Detect) Entero/Rhino (PCR) (Not Detect) 11/10/16 11/10/16 11/10/16 Range/Units 02:00 02:00 02:00 WBC (4.3-11.1) K/mcL RBC (3.82-4.97) M/mcL Hgb (11.5-15.4) g/dL Hct (35.3-44.9) % MCV (83.0-100.0) fL MCH (28.0-33.3) pg MCHC (31.6-35.5) g/dL RDW (11.5-14.5) % Plt Count (140-400) K/mcL MPV (9.4-12.4) fL Immature Gran % (0-4) % Seg Neutrophils % % Band Neutrophils % (0-4) % Lymphocytes % % Monocytes % % Eosinophils % % Basophils % % Neutrophils # (1.6-8.9) K/mcL Lymphocytes # (0.6-4.6) K/mcL Monocytes # (0.0-1.3) K/mcL Eosinophils # (0.0-0.6) K/mcL Basophils # (0.0-0.2) K/mcL Nucleated RBCs/100 WBC (0) /100 WBC Hypersegmented Neuts (Not Present) Toxic Granulation (Not Present) Platelet Estimate (Normal) Large Platelets (Not Present) APTT 72.0 H (26.0-36.0) Seconds ABG pH (7.32-7.45) pH Units ABG pCO2 (35-45) mmHg ABG pO2 (85-104) mmHg ABG HCO3 (21-27) mEQ/L ABG Total CO2 (20-26) mEq/L ABG O2 Saturation (95-98) % ABG Base Excess (-2.0 to 3.0) mEq/L Respiration Rate Blood Gas Modality Inspired O2 % Tidal Volume cc PEEP cm H2O Sodium 135 L (136-145) mEq/L Potassium 4.5 (3.5-4.5) mEq/L Chloride 94 L (98-109) mEq/L Carbon Dioxide 29 (19-29) mEq/L BUN 65 H (7-20) mg/dL Creatinine 2.31 H (0.57-1.11) mg/dL Est GFR ( Amer) 26 L (> 60) Est GFR (Non-Af Amer) 22 L (> 60) BUN/Creatinine Ratio 28 H (6-26) Glucose 174 H (70-99) mg/dL POC Glucose (58-89) Calculated Osmolality 303 H (280-300) Lactic Acid (0.5-2.2) mmol/L Calcium 8.1 L (8.6-10.8) mg/dL Ionized Calcium 1.02 L (1.15-1.35) mmol/L Phosphorus 7.8 H (2.3-4.7) mg/dL Magnesium 2.0 (1.6-2.6) mg/dL Total Bilirubin 0.3 (0.2-1.2) mg/dL Direct Bilirubin (0.0-0.5) mg/dL Indirect Bilirubin (0.0-1.2) mg/dL AST 17 (5-34) Units/L ALT 67 H (0-55) Units/L Alkaline Phosphatase 69 (38-126) Units/L Creatine Kinase (29-168) Units/L Troponin I (0-0.03) ng/mL Serum Total Protein 5.5 L (6.0-8.3) g/dL Albumin 2.4 L (3.5-5.0) g/dL Globulin 3.1 (2.4-3.5) g/dL Albumin/Globulin Ratio 0.8 L (1.1-2.2) Triglycerides (< 150) mg/dL Lipase (8-78) Units/L TSH (0.350-4.840) mcIU/mL Free T4 (0.70-1.48) ng/dl Free T3 (1.71-3.71) pg/mL Urine Color (Yellow) Urine Clarity (Clear) Urine pH (5.0-8.0) pH Units Ur Specific Dana (1.010-1.025) Urine Protein (Neg-Trace) mg/dL Urine Glucose (UA) (Normal) mg/dL Urine Ketones (Negative) mg/dL Urine Blood (Negative) Urine Nitrite (Negative) Urine Bilirubin (Negative) Urine Urobilinogen (Normal) mg/dL Ur Leukocyte Esterase (Negative) Urine Microscopic RBC (0-3) per hpf Urine Microscopic WBC (0-3) per hpf Ur Squamous Epith Cells (None-Few) per lpf Urine Bacteria (None-Few) per hpf Hyaline Casts (None-Few) per lpf Chlamy pneumoniae PCR (Not Detect) Adenovirus (PCR) (Not Detect) B. pertussis DNA (PCR) (Not Detect) Coronavirus OC43 (PCR) (Not Detect) Coronavirus HKU1 (PCR) (Not Detect) Coronavirus 229E (PCR) (Not Detect) Coronavirus NL63 (PCR) (Not Detect) Human Metapneumovirus (Not Detect) Influenza A (H1) PCR (Not Detect) Influ A (H1N1/09) PCR (Not Detect) Influenza A (H3) PCR (Not Detect) Influenza A Untype (PCR) (Not Detect) Influenza Type B (PCR) (Not Detect) M.pneumoniae DNA (PCR) (Not Detect) Parainfluenza 1 (PCR) (Not Detect) Parainfluenza 2 (PCR) (Not Detect) Parainfluenza 3 (PCR) (Not Detect) Parainfluenza 4 (PCR) (Not Detect) RSV (PCR) (Not Detect) Entero/Rhino (PCR) (Not Detect) 11/10/16 11/10/16 11/10/16 Range/Units 05:14 07:25 07:25 WBC (4.3-11.1) K/mcL RBC (3.82-4.97) M/mcL Hgb (11.5-15.4) g/dL Hct (35.3-44.9) % MCV (83.0-100.0) fL MCH (28.0-33.3) pg MCHC (31.6-35.5) g/dL RDW (11.5-14.5) % Plt Count (140-400) K/mcL MPV (9.4-12.4) fL Immature Gran % (0-4) % Seg Neutrophils % % Band Neutrophils % (0-4) % Lymphocytes % % Monocytes % % Eosinophils % % Basophils % % Neutrophils # (1.6-8.9) K/mcL Lymphocytes # (0.6-4.6) K/mcL Monocytes # (0.0-1.3) K/mcL Eosinophils # (0.0-0.6) K/mcL Basophils # (0.0-0.2) K/mcL Nucleated RBCs/100 WBC (0) /100 WBC Hypersegmented Neuts (Not Present) Toxic Granulation (Not Present) Platelet Estimate (Normal) Large Platelets (Not Present) APTT (26.0-36.0) Seconds ABG pH (7.32-7.45) pH Units ABG pCO2 (35-45) mmHg ABG pO2 (85-104) mmHg ABG HCO3 (21-27) mEQ/L ABG Total CO2 (20-26) mEq/L ABG O2 Saturation (95-98) % ABG Base Excess (-2.0 to 3.0) mEq/L Respiration Rate Blood Gas Modality Inspired O2 % Tidal Volume cc PEEP cm H2O Sodium (136-145) mEq/L Potassium (3.5-4.5) mEq/L Chloride (98-109) mEq/L Carbon Dioxide (19-29) mEq/L BUN (7-20) mg/dL Creatinine (0.57-1.11) mg/dL Est GFR ( Amer) (> 60) Est GFR (Non-Af Amer) (> 60) BUN/Creatinine Ratio (6-26) Glucose (70-99) mg/dL POC Glucose 161 H (58-89) Calculated Osmolality (280-300) Lactic Acid 1.1 (0.5-2.2) mmol/L Calcium (8.6-10.8) mg/dL Ionized Calcium (1.15-1.35) mmol/L Phosphorus (2.3-4.7) mg/dL Magnesium (1.6-2.6) mg/dL Total Bilirubin (0.2-1.2) mg/dL Direct Bilirubin (0.0-0.5) mg/dL Indirect Bilirubin (0.0-1.2) mg/dL AST (5-34) Units/L ALT (0-55) Units/L Alkaline Phosphatase (38-126) Units/L Creatine Kinase 253 H (29-168) Units/L Troponin I (0-0.03) ng/mL Serum Total Protein (6.0-8.3) g/dL Albumin (3.5-5.0) g/dL Globulin (2.4-3.5) g/dL Albumin/Globulin Ratio (1.1-2.2) Triglycerides 153 H (< 150) mg/dL Lipase 132 H (8-78) Units/L TSH (0.350-4.840) mcIU/mL Free T4 (0.70-1.48) ng/dl Free T3 (1.71-3.71) pg/mL Urine Color (Yellow) Urine Clarity (Clear) Urine pH (5.0-8.0) pH Units Ur Specific Dana (1.010-1.025) Urine Protein (Neg-Trace) mg/dL Urine Glucose (UA) (Normal) mg/dL Urine Ketones (Negative) mg/dL Urine Blood (Negative) Urine Nitrite (Negative) Urine Bilirubin (Negative) Urine Urobilinogen (Normal) mg/dL Ur Leukocyte Esterase (Negative) Urine Microscopic RBC (0-3) per hpf Urine Microscopic WBC (0-3) per hpf Ur Squamous Epith Cells (None-Few) per lpf Urine Bacteria (None-Few) per hpf Hyaline Casts (None-Few) per lpf Chlamy pneumoniae PCR (Not Detect) Adenovirus (PCR) (Not Detect) B. pertussis DNA (PCR) (Not Detect) Coronavirus OC43 (PCR) (Not Detect) Coronavirus HKU1 (PCR) (Not Detect) Coronavirus 229E (PCR) (Not Detect) Coronavirus NL63 (PCR) (Not Detect) Human Metapneumovirus (Not Detect) Influenza A (H1) PCR (Not Detect) Influ A (H1N1/09) PCR (Not Detect) Influenza A (H3) PCR (Not Detect) Influenza A Untype (PCR) (Not Detect) Influenza Type B (PCR) (Not Detect) M.pneumoniae DNA (PCR) (Not Detect) Parainfluenza 1 (PCR) (Not Detect) Parainfluenza 2 (PCR) (Not Detect) Parainfluenza 3 (PCR) (Not Detect) Parainfluenza 4 (PCR) (Not Detect) RSV (PCR) (Not Detect) Entero/Rhino (PCR) (Not Detect) 11/10/16 11/10/16 11/10/16 Range/Units 09:03 11:01 11:45 WBC (4.3-11.1) K/mcL RBC (3.82-4.97) M/mcL Hgb (11.5-15.4) g/dL Hct (35.3-44.9) % MCV (83.0-100.0) fL MCH (28.0-33.3) pg MCHC (31.6-35.5) g/dL RDW (11.5-14.5) % Plt Count (140-400) K/mcL MPV (9.4-12.4) fL Immature Gran % (0-4) % Seg Neutrophils % % Band Neutrophils % (0-4) % Lymphocytes % % Monocytes % % Eosinophils % % Basophils % % Neutrophils # (1.6-8.9) K/mcL Lymphocytes # (0.6-4.6) K/mcL Monocytes # (0.0-1.3) K/mcL Eosinophils # (0.0-0.6) K/mcL Basophils # (0.0-0.2) K/mcL Nucleated RBCs/100 WBC (0) /100 WBC Hypersegmented Neuts (Not Present) Toxic Granulation (Not Present) Platelet Estimate (Normal) Large Platelets (Not Present) APTT (26.0-36.0) Seconds ABG pH 7.31 L (7.32-7.45) pH Units ABG pCO2 68 H (35-45) mmHg ABG pO2 65 L (85-104) mmHg ABG HCO3 28.8 H (21-27) mEQ/L ABG Total CO2 36.3 H (20-26) mEq/L ABG O2 Saturation 90 L (95-98) % ABG Base Excess 5.2 H (-2.0 to 3.0) mEq/L Respiration Rate Blood Gas Modality VENT Inspired O2 70 % Tidal Volume cc PEEP cm H2O Sodium (136-145) mEq/L Potassium (3.5-4.5) mEq/L Chloride (98-109) mEq/L Carbon Dioxide (19-29) mEq/L BUN (7-20) mg/dL Creatinine (0.57-1.11) mg/dL Est GFR ( Amer) (> 60) Est GFR (Non-Af Amer) (> 60) BUN/Creatinine Ratio (6-26) Glucose (70-99) mg/dL POC Glucose 138 H (58-89) Calculated Osmolality (280-300) Lactic Acid (0.5-2.2) mmol/L Calcium (8.6-10.8) mg/dL Ionized Calcium (1.15-1.35) mmol/L Phosphorus (2.3-4.7) mg/dL Magnesium (1.6-2.6) mg/dL Total Bilirubin (0.2-1.2) mg/dL Direct Bilirubin (0.0-0.5) mg/dL Indirect Bilirubin (0.0-1.2) mg/dL AST (5-34) Units/L ALT (0-55) Units/L Alkaline Phosphatase (38-126) Units/L Creatine Kinase (29-168) Units/L Troponin I (0-0.03) ng/mL Serum Total Protein (6.0-8.3) g/dL Albumin (3.5-5.0) g/dL Globulin (2.4-3.5) g/dL Albumin/Globulin Ratio (1.1-2.2) Triglycerides (< 150) mg/dL Lipase (8-78) Units/L TSH (0.350-4.840) mcIU/mL Free T4 (0.70-1.48) ng/dl Free T3 (1.71-3.71) pg/mL Urine Color (Yellow) Urine Clarity (Clear) Urine pH (5.0-8.0) pH Units Ur Specific Dana (1.010-1.025) Urine Protein (Neg-Trace) mg/dL Urine Glucose (UA) (Normal) mg/dL Urine Ketones (Negative) mg/dL Urine Blood (Negative) Urine Nitrite (Negative) Urine Bilirubin (Negative) Urine Urobilinogen (Normal) mg/dL Ur Leukocyte Esterase (Negative) Urine Microscopic RBC (0-3) per hpf Urine Microscopic WBC (0-3) per hpf Ur Squamous Epith Cells (None-Few) per lpf Urine Bacteria (None-Few) per hpf Hyaline Casts (None-Few) per lpf Chlamy pneumoniae PCR Not Detected (Not Detect) Adenovirus (PCR) Not Detected (Not Detect) B. pertussis DNA (PCR) Not Detected (Not Detect) Coronavirus OC43 (PCR) Not Detected (Not Detect) Coronavirus HKU1 (PCR) Not Detected (Not Detect) Coronavirus 229E (PCR) Not Detected (Not Detect) Coronavirus NL63 (PCR) Not Detected (Not Detect) Human Metapneumovirus Not Detected (Not Detect) Influenza A (H1) PCR Not Detected (Not Detect) Influ A (H1N1/09) PCR Not Detected (Not Detect) Influenza A (H3) PCR Not Detected (Not Detect) Influenza A Untype (PCR) Not Detected (Not Detect) Influenza Type B (PCR) Not Detected (Not Detect) M.pneumoniae DNA (PCR) Not Detected (Not Detect) Parainfluenza 1 (PCR) Not Detected (Not Detect) Parainfluenza 2 (PCR) Not Detected (Not Detect) Parainfluenza 3 (PCR) Not Detected (Not Detect) Parainfluenza 4 (PCR) Not Detected (Not Detect) RSV (PCR) Not Detected (Not Detect) Entero/Rhino (PCR) Not Detected (Not Detect) 11/10/16 11/10/16 11/10/16 Range/Units 14:45 14:45 14:45 WBC 14.4 H (4.3-11.1) K/mcL RBC 4.85 (3.82-4.97) M/mcL Hgb 13.6 (11.5-15.4) g/dL Hct 42.6 (35.3-44.9) % MCV 87.8 (83.0-100.0) fL MCH 28.0 (28.0-33.3) pg MCHC 31.9 (31.6-35.5) g/dL RDW 16.1 H (11.5-14.5) % Plt Count 163 (140-400) K/mcL MPV 10.8 (9.4-12.4) fL Immature Gran % 0.6 (0-4) % Seg Neutrophils % 86.1 % Band Neutrophils % (0-4) % Lymphocytes % 4.5 % Monocytes % 8.6 % Eosinophils % 0.1 % Basophils % 0.1 % Neutrophils # 12.4 H (1.6-8.9) K/mcL Lymphocytes # 0.7 (0.6-4.6) K/mcL Monocytes # 1.2 (0.0-1.3) K/mcL Eosinophils # 0.0 (0.0-0.6) K/mcL Basophils # 0.0 (0.0-0.2) K/mcL Nucleated RBCs/100 WBC 0.3 H (0) /100 WBC Hypersegmented Neuts (Not Present) Toxic Granulation (Not Present) Platelet Estimate (Normal) Large Platelets (Not Present) APTT (26.0-36.0) Seconds ABG pH (7.32-7.45) pH Units ABG pCO2 (35-45) mmHg ABG pO2 (85-104) mmHg ABG HCO3 (21-27) mEQ/L ABG Total CO2 (20-26) mEq/L ABG O2 Saturation (95-98) % ABG Base Excess (-2.0 to 3.0) mEq/L Respiration Rate Blood Gas Modality Inspired O2 % Tidal Volume cc PEEP cm H2O Sodium 135 L (136-145) mEq/L Potassium 4.5 (3.5-4.5) mEq/L Chloride 94 L (98-109) mEq/L Carbon Dioxide 28 (19-29) mEq/L BUN 69 H (7-20) mg/dL Creatinine 2.21 H (0.57-1.11) mg/dL Est GFR ( Amer) 27 L (> 60) Est GFR (Non-Af Amer) 23 L (> 60) BUN/Creatinine Ratio 31 H (6-26) Glucose 114 H (70-99) mg/dL POC Glucose (58-89) Calculated Osmolality 301 H (280-300) Lactic Acid 0.9 (0.5-2.2) mmol/L Calcium 8.5 L (8.6-10.8) mg/dL Ionized Calcium (1.15-1.35) mmol/L Phosphorus (2.3-4.7) mg/dL Magnesium 2.0 (1.6-2.6) mg/dL Total Bilirubin 0.4 (0.2-1.2) mg/dL Direct Bilirubin (0.0-0.5) mg/dL Indirect Bilirubin (0.0-1.2) mg/dL AST 27 (5-34) Units/L ALT 62 H (0-55) Units/L Alkaline Phosphatase 66 (38-126) Units/L Creatine Kinase (29-168) Units/L Troponin I (0-0.03) ng/mL Serum Total Protein 5.6 L (6.0-8.3) g/dL Albumin 2.5 L (3.5-5.0) g/dL Globulin 3.1 (2.4-3.5) g/dL Albumin/Globulin Ratio 0.8 L (1.1-2.2) Triglycerides (< 150) mg/dL Lipase (8-78) Units/L TSH (0.350-4.840) mcIU/mL Free T4 (0.70-1.48) ng/dl Free T3 (1.71-3.71) pg/mL Urine Color (Yellow) Urine Clarity (Clear) Urine pH (5.0-8.0) pH Units Ur Specific Dana (1.010-1.025) Urine Protein (Neg-Trace) mg/dL Urine Glucose (UA) (Normal) mg/dL Urine Ketones (Negative) mg/dL Urine Blood (Negative) Urine Nitrite (Negative) Urine Bilirubin (Negative) Urine Urobilinogen (Normal) mg/dL Ur Leukocyte Esterase (Negative) Urine Microscopic RBC (0-3) per hpf Urine Microscopic WBC (0-3) per hpf Ur Squamous Epith Cells (None-Few) per lpf Urine Bacteria (None-Few) per hpf Hyaline Casts (None-Few) per lpf Chlamy pneumoniae PCR (Not Detect) Adenovirus (PCR) (Not Detect) B. pertussis DNA (PCR) (Not Detect) Coronavirus OC43 (PCR) (Not Detect) Coronavirus HKU1 (PCR) (Not Detect) Coronavirus 229E (PCR) (Not Detect) Coronavirus NL63 (PCR) (Not Detect) Human Metapneumovirus (Not Detect) Influenza A (H1) PCR (Not Detect) Influ A (H1N1/09) PCR (Not Detect) Influenza A (H3) PCR (Not Detect) Influenza A Untype (PCR) (Not Detect) Influenza Type B (PCR) (Not Detect) M.pneumoniae DNA (PCR) (Not Detect) Parainfluenza 1 (PCR) (Not Detect) Parainfluenza 2 (PCR) (Not Detect) Parainfluenza 3 (PCR) (Not Detect) Parainfluenza 4 (PCR) (Not Detect) RSV (PCR) (Not Detect) Entero/Rhino (PCR) (Not Detect) 11/10/16 11/10/16 11/10/16 Range/Units 18:03 20:00 23:03 WBC (4.3-11.1) K/mcL RBC (3.82-4.97) M/mcL Hgb (11.5-15.4) g/dL Hct (35.3-44.9) % MCV (83.0-100.0) fL MCH (28.0-33.3) pg MCHC (31.6-35.5) g/dL RDW (11.5-14.5) % Plt Count (140-400) K/mcL MPV (9.4-12.4) fL Immature Gran % (0-4) % Seg Neutrophils % % Band Neutrophils % (0-4) % Lymphocytes % % Monocytes % % Eosinophils % % Basophils % % Neutrophils # (1.6-8.9) K/mcL Lymphocytes # (0.6-4.6) K/mcL Monocytes # (0.0-1.3) K/mcL Eosinophils # (0.0-0.6) K/mcL Basophils # (0.0-0.2) K/mcL Nucleated RBCs/100 WBC (0) /100 WBC Hypersegmented Neuts (Not Present) Toxic Granulation (Not Present) Platelet Estimate (Normal) Large Platelets (Not Present) APTT (26.0-36.0) Seconds ABG pH 7.39 (7.32-7.45) pH Units ABG pCO2 60 H (35-45) mmHg ABG pO2 58 L (85-104) mmHg ABG HCO3 36.3 H (21-27) mEQ/L ABG Total CO2 38.1 H (20-26) mEq/L ABG O2 Saturation 89 L (95-98) % ABG Base Excess 8.8 H (-2.0 to 3.0) mEq/L Respiration Rate Blood Gas Modality VC Inspired O2 60 % Tidal Volume cc PEEP cm H2O Sodium (136-145) mEq/L Potassium (3.5-4.5) mEq/L Chloride (98-109) mEq/L Carbon Dioxide (19-29) mEq/L BUN (7-20) mg/dL Creatinine (0.57-1.11) mg/dL Est GFR ( Amer) (> 60) Est GFR (Non-Af Amer) (> 60) BUN/Creatinine Ratio (6-26) Glucose (70-99) mg/dL POC Glucose 119 H 87 (58-89) Calculated Osmolality (280-300) Lactic Acid (0.5-2.2) mmol/L Calcium (8.6-10.8) mg/dL Ionized Calcium (1.15-1.35) mmol/L Phosphorus (2.3-4.7) mg/dL Magnesium (1.6-2.6) mg/dL Total Bilirubin (0.2-1.2) mg/dL Direct Bilirubin (0.0-0.5) mg/dL Indirect Bilirubin (0.0-1.2) mg/dL AST (5-34) Units/L ALT (0-55) Units/L Alkaline Phosphatase (38-126) Units/L Creatine Kinase (29-168) Units/L Troponin I (0-0.03) ng/mL Serum Total Protein (6.0-8.3) g/dL Albumin (3.5-5.0) g/dL Globulin (2.4-3.5) g/dL Albumin/Globulin Ratio (1.1-2.2) Triglycerides (< 150) mg/dL Lipase (8-78) Units/L TSH (0.350-4.840) mcIU/mL Free T4 (0.70-1.48) ng/dl Free T3 (1.71-3.71) pg/mL Urine Color (Yellow) Urine Clarity (Clear) Urine pH (5.0-8.0) pH Units Ur Specific Dana (1.010-1.025) Urine Protein (Neg-Trace) mg/dL Urine Glucose (UA) (Normal) mg/dL Urine Ketones (Negative) mg/dL Urine Blood (Negative) Urine Nitrite (Negative) Urine Bilirubin (Negative) Urine Urobilinogen (Normal) mg/dL Ur Leukocyte Esterase (Negative) Urine Microscopic RBC (0-3) per hpf Urine Microscopic WBC (0-3) per hpf Ur Squamous Epith Cells (None-Few) per lpf Urine Bacteria (None-Few) per hpf Hyaline Casts (None-Few) per lpf Chlamy pneumoniae PCR (Not Detect) Adenovirus (PCR) (Not Detect) B. pertussis DNA (PCR) (Not Detect) Coronavirus OC43 (PCR) (Not Detect) Coronavirus HKU1 (PCR) (Not Detect) Coronavirus 229E (PCR) (Not Detect) Coronavirus NL63 (PCR) (Not Detect) Human Metapneumovirus (Not Detect) Influenza A (H1) PCR (Not Detect) Influ A (H1N1/09) PCR (Not Detect) Influenza A (H3) PCR (Not Detect) Influenza A Untype (PCR) (Not Detect) Influenza Type B (PCR) (Not Detect) M.pneumoniae DNA (PCR) (Not Detect) Parainfluenza 1 (PCR) (Not Detect) Parainfluenza 2 (PCR) (Not Detect) Parainfluenza 3 (PCR) (Not Detect) Parainfluenza 4 (PCR) (Not Detect) RSV (PCR) (Not Detect) Entero/Rhino (PCR) (Not Detect) 11/11/16 11/11/16 11/11/16 Range/Units 03:00 03:00 04:10 WBC 13.1 H (4.3-11.1) K/mcL RBC 4.73 (3.82-4.97) M/mcL Hgb 13.6 (11.5-15.4) g/dL Hct 41.6 (35.3-44.9) % MCV 87.9 (83.0-100.0) fL MCH 28.8 (28.0-33.3) pg MCHC 32.7 (31.6-35.5) g/dL RDW 16.1 H (11.5-14.5) % Plt Count 159 (140-400) K/mcL MPV 10.2 (9.4-12.4) fL Immature Gran % 0.5 (0-4) % Seg Neutrophils % 85.1 % Band Neutrophils % (0-4) % Lymphocytes % 5.7 % Monocytes % 8.3 % Eosinophils % 0.3 % Basophils % 0.1 % Neutrophils # 11.2 H (1.6-8.9) K/mcL Lymphocytes # 0.8 (0.6-4.6) K/mcL Monocytes # 1.1 (0.0-1.3) K/mcL Eosinophils # 0.0 (0.0-0.6) K/mcL Basophils # 0.0 (0.0-0.2) K/mcL Nucleated RBCs/100 WBC 0.2 H (0) /100 WBC Hypersegmented Neuts (Not Present) Toxic Granulation (Not Present) Platelet Estimate (Normal) Large Platelets (Not Present) APTT (26.0-36.0) Seconds ABG pH 7.36 (7.32-7.45) pH Units ABG pCO2 65 H (35-45) mmHg ABG pO2 57 L (85-104) mmHg ABG HCO3 36.7 H (21-27) mEQ/L ABG Total CO2 38.7 H (20-26) mEq/L ABG O2 Saturation 88 L (95-98) % ABG Base Excess 8.3 H (-2.0 to 3.0) mEq/L Respiration Rate Blood Gas Modality VC Inspired O2 65 % Tidal Volume cc PEEP cm H2O Sodium 137 (136-145) mEq/L Potassium 4.2 (3.5-4.5) mEq/L Chloride 93 L (98-109) mEq/L Carbon Dioxide 31 H (19-29) mEq/L BUN 72 H (7-20) mg/dL Creatinine 2.28 H (0.57-1.11) mg/dL Est GFR ( Amer) 26 L (> 60) Est GFR (Non-Af Amer) 22 L (> 60) BUN/Creatinine Ratio 32 H (6-26) Glucose 109 H (70-99) mg/dL POC Glucose (58-89) Calculated Osmolality 306 H (280-300) Lactic Acid (0.5-2.2) mmol/L Calcium 8.4 L (8.6-10.8) mg/dL Ionized Calcium 1.04 L (1.15-1.35) mmol/L Phosphorus 6.4 H (2.3-4.7) mg/dL Magnesium 1.9 (1.6-2.6) mg/dL Total Bilirubin 0.6 (0.2-1.2) mg/dL Direct Bilirubin 0.3 (0.0-0.5) mg/dL Indirect Bilirubin 0.3 (0.0-1.2) mg/dL AST 37 H (5-34) Units/L ALT 57 H (0-55) Units/L Alkaline Phosphatase 63 (38-126) Units/L Creatine Kinase (29-168) Units/L Troponin I (0-0.03) ng/mL Serum Total Protein 5.5 L (6.0-8.3) g/dL Albumin 2.5 L (3.5-5.0) g/dL Globulin 3.0 (2.4-3.5) g/dL Albumin/Globulin Ratio 0.8 L (1.1-2.2) Triglycerides (< 150) mg/dL Lipase (8-78) Units/L TSH (0.350-4.840) mcIU/mL Free T4 (0.70-1.48) ng/dl Free T3 (1.71-3.71) pg/mL Urine Color (Yellow) Urine Clarity (Clear) Urine pH (5.0-8.0) pH Units Ur Specific Dana (1.010-1.025) Urine Protein (Neg-Trace) mg/dL Urine Glucose (UA) (Normal) mg/dL Urine Ketones (Negative) mg/dL Urine Blood (Negative) Urine Nitrite (Negative) Urine Bilirubin (Negative) Urine Urobilinogen (Normal) mg/dL Ur Leukocyte Esterase (Negative) Urine Microscopic RBC (0-3) per hpf Urine Microscopic WBC (0-3) per hpf Ur Squamous Epith Cells (None-Few) per lpf Urine Bacteria (None-Few) per hpf Hyaline Casts (None-Few) per lpf Chlamy pneumoniae PCR (Not Detect) Adenovirus (PCR) (Not Detect) B. pertussis DNA (PCR) (Not Detect) Coronavirus OC43 (PCR) (Not Detect) Coronavirus HKU1 (PCR) (Not Detect) Coronavirus 229E (PCR) (Not Detect) Coronavirus NL63 (PCR) (Not Detect) Human Metapneumovirus (Not Detect) Influenza A (H1) PCR (Not Detect) Influ A (H1N1/09) PCR (Not Detect) Influenza A (H3) PCR (Not Detect) Influenza A Untype (PCR) (Not Detect) Influenza Type B (PCR) (Not Detect) M.pneumoniae DNA (PCR) (Not Detect) Parainfluenza 1 (PCR) (Not Detect) Parainfluenza 2 (PCR) (Not Detect) Parainfluenza 3 (PCR) (Not Detect) Parainfluenza 4 (PCR) (Not Detect) RSV (PCR) (Not Detect) Entero/Rhino (PCR) (Not Detect) 11/11/16 11/11/16 11/11/16 Range/Units 11:26 11:27 14:55 WBC (4.3-11.1) K/mcL RBC (3.82-4.97) M/mcL Hgb (11.5-15.4) g/dL Hct (35.3-44.9) % MCV (83.0-100.0) fL MCH (28.0-33.3) pg MCHC (31.6-35.5) g/dL RDW (11.5-14.5) % Plt Count (140-400) K/mcL MPV (9.4-12.4) fL Immature Gran % (0-4) % Seg Neutrophils % % Band Neutrophils % (0-4) % Lymphocytes % % Monocytes % % Eosinophils % % Basophils % % Neutrophils # (1.6-8.9) K/mcL Lymphocytes # (0.6-4.6) K/mcL Monocytes # (0.0-1.3) K/mcL Eosinophils # (0.0-0.6) K/mcL Basophils # (0.0-0.2) K/mcL Nucleated RBCs/100 WBC (0) /100 WBC Hypersegmented Neuts (Not Present) Toxic Granulation (Not Present) Platelet Estimate (Normal) Large Platelets (Not Present) APTT (26.0-36.0) Seconds ABG pH 7.36 (7.32-7.45) pH Units ABG pCO2 67 H (35-45) mmHg ABG pO2 60 L (85-104) mmHg ABG HCO3 37.9 H (21-27) mEQ/L ABG Total CO2 40.0 H (20-26) mEq/L ABG O2 Saturation 90 L (95-98) % ABG Base Excess 9.4 H (-2.0 to 3.0) mEq/L Respiration Rate 24 Blood Gas Modality VC Inspired O2 70 % Tidal Volume 360 cc PEEP 14 cm H2O Sodium 136 (136-145) mEq/L Potassium 4.3 (3.5-4.5) mEq/L Chloride 93 L (98-109) mEq/L Carbon Dioxide 31 H (19-29) mEq/L BUN 76 H (7-20) mg/dL Creatinine 2.29 H (0.57-1.11) mg/dL Est GFR ( Amer) 26 L (> 60) Est GFR (Non-Af Amer) 22 L (> 60) BUN/Creatinine Ratio 33 H (6-26) Glucose 92 (70-99) mg/dL POC Glucose 106 H (58-89) Calculated Osmolality 304 H (280-300) Lactic Acid (0.5-2.2) mmol/L Calcium 8.9 (8.6-10.8) mg/dL Ionized Calcium 1.07 L (1.15-1.35) mmol/L Phosphorus 6.9 H (2.3-4.7) mg/dL Magnesium 2.3 (1.6-2.6) mg/dL Total Bilirubin (0.2-1.2) mg/dL Direct Bilirubin (0.0-0.5) mg/dL Indirect Bilirubin (0.0-1.2) mg/dL AST (5-34) Units/L ALT (0-55) Units/L Alkaline Phosphatase (38-126) Units/L Creatine Kinase (29-168) Units/L Troponin I (0-0.03) ng/mL Serum Total Protein (6.0-8.3) g/dL Albumin (3.5-5.0) g/dL Globulin (2.4-3.5) g/dL Albumin/Globulin Ratio (1.1-2.2) Triglycerides (< 150) mg/dL Lipase (8-78) Units/L TSH (0.350-4.840) mcIU/mL Free T4 (0.70-1.48) ng/dl Free T3 (1.71-3.71) pg/mL Urine Color (Yellow) Urine Clarity (Clear) Urine pH (5.0-8.0) pH Units Ur Specific Dana (1.010-1.025) Urine Protein (Neg-Trace) mg/dL Urine Glucose (UA) (Normal) mg/dL Urine Ketones (Negative) mg/dL Urine Blood (Negative) Urine Nitrite (Negative) Urine Bilirubin (Negative) Urine Urobilinogen (Normal) mg/dL Ur Leukocyte Esterase (Negative) Urine Microscopic RBC (0-3) per hpf Urine Microscopic WBC (0-3) per hpf Ur Squamous Epith Cells (None-Few) per lpf Urine Bacteria (None-Few) per hpf Hyaline Casts (None-Few) per lpf Chlamy pneumoniae PCR (Not Detect) Adenovirus (PCR) (Not Detect) B. pertussis DNA (PCR) (Not Detect) Coronavirus OC43 (PCR) (Not Detect) Coronavirus HKU1 (PCR) (Not Detect) Coronavirus 229E (PCR) (Not Detect) Coronavirus NL63 (PCR) (Not Detect) Human Metapneumovirus (Not Detect) Influenza A (H1) PCR (Not Detect) Influ A (H1N1/09) PCR (Not Detect) Influenza A (H3) PCR (Not Detect) Influenza A Untype (PCR) (Not Detect) Influenza Type B (PCR) (Not Detect) M.pneumoniae DNA (PCR) (Not Detect) Parainfluenza 1 (PCR) (Not Detect) Parainfluenza 2 (PCR) (Not Detect) Parainfluenza 3 (PCR) (Not Detect) Parainfluenza 4 (PCR) (Not Detect) RSV (PCR) (Not Detect) Entero/Rhino (PCR) (Not Detect) 11/11/16 11/11/16 11/12/16 Range/Units 18:18 23:32 03:00 WBC 13.4 H (4.3-11.1) K/mcL RBC 4.84 (3.82-4.97) M/mcL Hgb 13.5 (11.5-15.4) g/dL Hct 42.8 (35.3-44.9) % MCV 88.4 (83.0-100.0) fL MCH 27.9 L (28.0-33.3) pg MCHC 31.5 L (31.6-35.5) g/dL RDW 16.0 H (11.5-14.5) % Plt Count 152 (140-400) K/mcL MPV 10.5 (9.4-12.4) fL Immature Gran % 0.5 (0-4) % Seg Neutrophils % 85.8 % Band Neutrophils % (0-4) % Lymphocytes % 3.8 % Monocytes % 9.1 % Eosinophils % 0.7 % Basophils % 0.1 % Neutrophils # 11.5 H (1.6-8.9) K/mcL Lymphocytes # 0.5 L (0.6-4.6) K/mcL Monocytes # 1.2 (0.0-1.3) K/mcL Eosinophils # 0.1 (0.0-0.6) K/mcL Basophils # 0.0 (0.0-0.2) K/mcL Nucleated RBCs/100 WBC (0) /100 WBC Hypersegmented Neuts (Not Present) Toxic Granulation (Not Present) Platelet Estimate (Normal) Large Platelets (Not Present) APTT (26.0-36.0) Seconds ABG pH (7.32-7.45) pH Units ABG pCO2 (35-45) mmHg ABG pO2 (85-104) mmHg ABG HCO3 (21-27) mEQ/L ABG Total CO2 (20-26) mEq/L ABG O2 Saturation (95-98) % ABG Base Excess (-2.0 to 3.0) mEq/L Respiration Rate Blood Gas Modality Inspired O2 % Tidal Volume cc PEEP cm H2O Sodium (136-145) mEq/L Potassium (3.5-4.5) mEq/L Chloride (98-109) mEq/L Carbon Dioxide (19-29) mEq/L BUN (7-20) mg/dL Creatinine (0.57-1.11) mg/dL Est GFR ( Amer) (> 60) Est GFR (Non-Af Amer) (> 60) BUN/Creatinine Ratio (6-26) Glucose (70-99) mg/dL POC Glucose 128 H 105 H (58-89) Calculated Osmolality (280-300) Lactic Acid (0.5-2.2) mmol/L Calcium (8.6-10.8) mg/dL Ionized Calcium (1.15-1.35) mmol/L Phosphorus (2.3-4.7) mg/dL Magnesium (1.6-2.6) mg/dL Total Bilirubin (0.2-1.2) mg/dL Direct Bilirubin (0.0-0.5) mg/dL Indirect Bilirubin (0.0-1.2) mg/dL AST (5-34) Units/L ALT (0-55) Units/L Alkaline Phosphatase (38-126) Units/L Creatine Kinase (29-168) Units/L Troponin I (0-0.03) ng/mL Serum Total Protein (6.0-8.3) g/dL Albumin (3.5-5.0) g/dL Globulin (2.4-3.5) g/dL Albumin/Globulin Ratio (1.1-2.2) Triglycerides (< 150) mg/dL Lipase (8-78) Units/L TSH (0.350-4.840) mcIU/mL Free T4 (0.70-1.48) ng/dl Free T3 (1.71-3.71) pg/mL Urine Color (Yellow) Urine Clarity (Clear) Urine pH (5.0-8.0) pH Units Ur Specific Dana (1.010-1.025) Urine Protein (Neg-Trace) mg/dL Urine Glucose (UA) (Normal) mg/dL Urine Ketones (Negative) mg/dL Urine Blood (Negative) Urine Nitrite (Negative) Urine Bilirubin (Negative) Urine Urobilinogen (Normal) mg/dL Ur Leukocyte Esterase (Negative) Urine Microscopic RBC (0-3) per hpf Urine Microscopic WBC (0-3) per hpf Ur Squamous Epith Cells (None-Few) per lpf Urine Bacteria (None-Few) per hpf Hyaline Casts (None-Few) per lpf Chlamy pneumoniae PCR (Not Detect) Adenovirus (PCR) (Not Detect) B. pertussis DNA (PCR) (Not Detect) Coronavirus OC43 (PCR) (Not Detect) Coronavirus HKU1 (PCR) (Not Detect) Coronavirus 229E (PCR) (Not Detect) Coronavirus NL63 (PCR) (Not Detect) Human Metapneumovirus (Not Detect) Influenza A (H1) PCR (Not Detect) Influ A (H1N1/09) PCR (Not Detect) Influenza A (H3) PCR (Not Detect) Influenza A Untype (PCR) (Not Detect) Influenza Type B (PCR) (Not Detect) M.pneumoniae DNA (PCR) (Not Detect) Parainfluenza 1 (PCR) (Not Detect) Parainfluenza 2 (PCR) (Not Detect) Parainfluenza 3 (PCR) (Not Detect) Parainfluenza 4 (PCR) (Not Detect) RSV (PCR) (Not Detect) Entero/Rhino (PCR) (Not Detect) 11/12/16 11/12/16 11/12/16 Range/Units 03:00 04:07 10:50 WBC (4.3-11.1) K/mcL RBC (3.82-4.97) M/mcL Hgb (11.5-15.4) g/dL Hct (35.3-44.9) % MCV (83.0-100.0) fL MCH (28.0-33.3) pg MCHC (31.6-35.5) g/dL RDW (11.5-14.5) % Plt Count (140-400) K/mcL MPV (9.4-12.4) fL Immature Gran % (0-4) % Seg Neutrophils % % Band Neutrophils % (0-4) % Lymphocytes % % Monocytes % % Eosinophils % % Basophils % % Neutrophils # (1.6-8.9) K/mcL Lymphocytes # (0.6-4.6) K/mcL Monocytes # (0.0-1.3) K/mcL Eosinophils # (0.0-0.6) K/mcL Basophils # (0.0-0.2) K/mcL Nucleated RBCs/100 WBC (0) /100 WBC Hypersegmented Neuts (Not Present) Toxic Granulation (Not Present) Platelet Estimate (Normal) Large Platelets (Not Present) APTT (26.0-36.0) Seconds ABG pH 7.43 (7.32-7.45) pH Units ABG pCO2 60 H (35-45) mmHg ABG pO2 58 L (85-104) mmHg ABG HCO3 39.8 H (21-27) mEQ/L ABG Total CO2 41.6 H (20-26) mEq/L ABG O2 Saturation 90 L (95-98) % ABG Base Excess 12.7 H (-2.0 to 3.0) mEq/L Respiration Rate Blood Gas Modality VC+ Inspired O2 60 % Tidal Volume cc PEEP cm H2O Sodium 141 (136-145) mEq/L Potassium 4.3 (3.5-4.5) mEq/L Chloride 95 L (98-109) mEq/L Carbon Dioxide 32 H (19-29) mEq/L BUN 77 H (7-20) mg/dL Creatinine 2.16 H (0.57-1.11) mg/dL Est GFR ( Amer) 28 L (> 60) Est GFR (Non-Af Amer) 23 L (> 60) BUN/Creatinine Ratio 36 H (6-26) Glucose 98 (70-99) mg/dL POC Glucose 142 H (58-89) Calculated Osmolality 315 H (280-300) Lactic Acid (0.5-2.2) mmol/L Calcium 9.0 (8.6-10.8) mg/dL Ionized Calcium 1.08 L (1.15-1.35) mmol/L Phosphorus 6.2 H (2.3-4.7) mg/dL Magnesium 2.2 (1.6-2.6) mg/dL Total Bilirubin 0.8 (0.2-1.2) mg/dL Direct Bilirubin 0.5 (0.0-0.5) mg/dL Indirect Bilirubin 0.3 (0.0-1.2) mg/dL AST 54 H (5-34) Units/L ALT 51 (0-55) Units/L Alkaline Phosphatase 63 (38-126) Units/L Creatine Kinase (29-168) Units/L Troponin I (0-0.03) ng/mL Serum Total Protein 5.9 L (6.0-8.3) g/dL Albumin 2.4 L (3.5-5.0) g/dL Globulin 3.5 (2.4-3.5) g/dL Albumin/Globulin Ratio 0.7 L (1.1-2.2) Triglycerides (< 150) mg/dL Lipase (8-78) Units/L TSH (0.350-4.840) mcIU/mL Free T4 (0.70-1.48) ng/dl Free T3 (1.71-3.71) pg/mL Urine Color (Yellow) Urine Clarity (Clear) Urine pH (5.0-8.0) pH Units Ur Specific Dana (1.010-1.025) Urine Protein (Neg-Trace) mg/dL Urine Glucose (UA) (Normal) mg/dL Urine Ketones (Negative) mg/dL Urine Blood (Negative) Urine Nitrite (Negative) Urine Bilirubin (Negative) Urine Urobilinogen (Normal) mg/dL Ur Leukocyte Esterase (Negative) Urine Microscopic RBC (0-3) per hpf Urine Microscopic WBC (0-3) per hpf Ur Squamous Epith Cells (None-Few) per lpf Urine Bacteria (None-Few) per hpf Hyaline Casts (None-Few) per lpf Chlamy pneumoniae PCR (Not Detect) Adenovirus (PCR) (Not Detect) B. pertussis DNA (PCR) (Not Detect) Coronavirus OC43 (PCR) (Not Detect) Coronavirus HKU1 (PCR) (Not Detect) Coronavirus 229E (PCR) (Not Detect) Coronavirus NL63 (PCR) (Not Detect) Human Metapneumovirus (Not Detect) Influenza A (H1) PCR (Not Detect) Influ A (H1N1/09) PCR (Not Detect) Influenza A (H3) PCR (Not Detect) Influenza A Untype (PCR) (Not Detect) Influenza Type B (PCR) (Not Detect) M.pneumoniae DNA (PCR) (Not Detect) Parainfluenza 1 (PCR) (Not Detect) Parainfluenza 2 (PCR) (Not Detect) Parainfluenza 3 (PCR) (Not Detect) Parainfluenza 4 (PCR) (Not Detect) RSV (PCR) (Not Detect) Entero/Rhino (PCR) (Not Detect) 11/12/16 11/12/16 11/13/16 Range/Units 14:39 15:09 00:10 WBC (4.3-11.1) K/mcL RBC (3.82-4.97) M/mcL Hgb (11.5-15.4) g/dL Hct (35.3-44.9) % MCV (83.0-100.0) fL MCH (28.0-33.3) pg MCHC (31.6-35.5) g/dL RDW (11.5-14.5) % Plt Count (140-400) K/mcL MPV (9.4-12.4) fL Immature Gran % (0-4) % Seg Neutrophils % % Band Neutrophils % (0-4) % Lymphocytes % % Monocytes % % Eosinophils % % Basophils % % Neutrophils # (1.6-8.9) K/mcL Lymphocytes # (0.6-4.6) K/mcL Monocytes # (0.0-1.3) K/mcL Eosinophils # (0.0-0.6) K/mcL Basophils # (0.0-0.2) K/mcL Nucleated RBCs/100 WBC (0) /100 WBC Hypersegmented Neuts (Not Present) Toxic Granulation (Not Present) Platelet Estimate (Normal) Large Platelets (Not Present) APTT (26.0-36.0) Seconds ABG pH 7.40 (7.32-7.45) pH Units ABG pCO2 56 H (35-45) mmHg ABG pO2 60 L (85-104) mmHg ABG HCO3 34.7 H (21-27) mEQ/L ABG Total CO2 36.4 H (20-26) mEq/L ABG O2 Saturation 91 L (95-98) % ABG Base Excess 8.2 H (-2.0 to 3.0) mEq/L Respiration Rate Blood Gas Modality VCT DDRAKE Inspired O2 100.0 % Tidal Volume 360 cc PEEP cm H2O Sodium (136-145) mEq/L Potassium (3.5-4.5) mEq/L Chloride (98-109) mEq/L Carbon Dioxide (19-29) mEq/L BUN (7-20) mg/dL Creatinine (0.57-1.11) mg/dL Est GFR ( Amer) (> 60) Est GFR (Non-Af Amer) (> 60) BUN/Creatinine Ratio (6-26) Glucose (70-99) mg/dL POC Glucose 205 H (58-89) Calculated Osmolality (280-300) Lactic Acid (0.5-2.2) mmol/L Calcium (8.6-10.8) mg/dL Ionized Calcium (1.15-1.35) mmol/L Phosphorus (2.3-4.7) mg/dL Magnesium (1.6-2.6) mg/dL Total Bilirubin (0.2-1.2) mg/dL Direct Bilirubin (0.0-0.5) mg/dL Indirect Bilirubin (0.0-1.2) mg/dL AST (5-34) Units/L ALT (0-55) Units/L Alkaline Phosphatase (38-126) Units/L Creatine Kinase (29-168) Units/L Troponin I 0.24 H* (0-0.03) ng/mL Serum Total Protein (6.0-8.3) g/dL Albumin (3.5-5.0) g/dL Globulin (2.4-3.5) g/dL Albumin/Globulin Ratio (1.1-2.2) Triglycerides (< 150) mg/dL Lipase (8-78) Units/L TSH (0.350-4.840) mcIU/mL Free T4 (0.70-1.48) ng/dl Free T3 (1.71-3.71) pg/mL Urine Color (Yellow) Urine Clarity (Clear) Urine pH (5.0-8.0) pH Units Ur Specific Dana (1.010-1.025) Urine Protein (Neg-Trace) mg/dL Urine Glucose (UA) (Normal) mg/dL Urine Ketones (Negative) mg/dL Urine Blood (Negative) Urine Nitrite (Negative) Urine Bilirubin (Negative) Urine Urobilinogen (Normal) mg/dL Ur Leukocyte Esterase (Negative) Urine Microscopic RBC (0-3) per hpf Urine Microscopic WBC (0-3) per hpf Ur Squamous Epith Cells (None-Few) per lpf Urine Bacteria (None-Few) per hpf Hyaline Casts (None-Few) per lpf Chlamy pneumoniae PCR (Not Detect) Adenovirus (PCR) (Not Detect) B. pertussis DNA (PCR) (Not Detect) Coronavirus OC43 (PCR) (Not Detect) Coronavirus HKU1 (PCR) (Not Detect) Coronavirus 229E (PCR) (Not Detect) Coronavirus NL63 (PCR) (Not Detect) Human Metapneumovirus (Not Detect) Influenza A (H1) PCR (Not Detect) Influ A (H1N1/09) PCR (Not Detect) Influenza A (H3) PCR (Not Detect) Influenza A Untype (PCR) (Not Detect) Influenza Type B (PCR) (Not Detect) M.pneumoniae DNA (PCR) (Not Detect) Parainfluenza 1 (PCR) (Not Detect) Parainfluenza 2 (PCR) (Not Detect) Parainfluenza 3 (PCR) (Not Detect) Parainfluenza 4 (PCR) (Not Detect) RSV (PCR) (Not Detect) Entero/Rhino (PCR) (Not Detect) 11/13/16 11/13/16 11/13/16 Range/Units 04:16 04:16 04:16 WBC 8.7 (4.3-11.1) K/mcL RBC 5.07 H (3.82-4.97) M/mcL Hgb 14.4 (11.5-15.4) g/dL Hct 44.2 (35.3-44.9) % MCV 87.2 (83.0-100.0) fL MCH 28.4 (28.0-33.3) pg MCHC 32.6 (31.6-35.5) g/dL RDW 15.8 H (11.5-14.5) % Plt Count 180 (140-400) K/mcL MPV 11.9 (9.4-12.4) fL Immature Gran % 0.5 (0-4) % Seg Neutrophils % 95.1 % Band Neutrophils % (0-4) % Lymphocytes % 1.5 % Monocytes % 2.8 % Eosinophils % 0.0 % Basophils % 0.1 % Neutrophils # 8.3 (1.6-8.9) K/mcL Lymphocytes # 0.1 L (0.6-4.6) K/mcL Monocytes # 0.2 (0.0-1.3) K/mcL Eosinophils # 0.0 (0.0-0.6) K/mcL Basophils # 0.0 (0.0-0.2) K/mcL Nucleated RBCs/100 WBC (0) /100 WBC Hypersegmented Neuts (Not Present) Toxic Granulation Present A (Not Present) Platelet Estimate Normal (Normal) Large Platelets (Not Present) APTT (26.0-36.0) Seconds ABG pH (7.32-7.45) pH Units ABG pCO2 (35-45) mmHg ABG pO2 (85-104) mmHg ABG HCO3 (21-27) mEQ/L ABG Total CO2 (20-26) mEq/L ABG O2 Saturation (95-98) % ABG Base Excess (-2.0 to 3.0) mEq/L Respiration Rate Blood Gas Modality Inspired O2 % Tidal Volume cc PEEP cm H2O Sodium 139 (136-145) mEq/L Potassium 4.3 (3.5-4.5) mEq/L Chloride 97 L (98-109) mEq/L Carbon Dioxide 30 H (19-29) mEq/L BUN 66 H (7-20) mg/dL Creatinine 1.89 H (0.57-1.11) mg/dL Est GFR ( Amer) 33 L (> 60) Est GFR (Non-Af Amer) 27 L (> 60) BUN/Creatinine Ratio 35 H (6-26) Glucose 200 H (70-99) mg/dL POC Glucose (58-89) Calculated Osmolality 313 H (280-300) Lactic Acid (0.5-2.2) mmol/L Calcium 9.6 (8.6-10.8) mg/dL Ionized Calcium 1.13 L (1.15-1.35) mmol/L Phosphorus 4.9 H (2.3-4.7) mg/dL Magnesium 2.4 (1.6-2.6) mg/dL Total Bilirubin 0.4 (0.2-1.2) mg/dL Direct Bilirubin 0.3 (0.0-0.5) mg/dL Indirect Bilirubin 0.1 (0.0-1.2) mg/dL AST 33 (5-34) Units/L ALT 48 (0-55) Units/L Alkaline Phosphatase 74 (38-126) Units/L Creatine Kinase (29-168) Units/L Troponin I 0.17 H* (0-0.03) ng/mL Serum Total Protein 6.6 (6.0-8.3) g/dL Albumin 2.4 L (3.5-5.0) g/dL Globulin 4.2 H (2.4-3.5) g/dL Albumin/Globulin Ratio 0.6 L (1.1-2.2) Triglycerides (< 150) mg/dL Lipase (8-78) Units/L TSH (0.350-4.840) mcIU/mL Free T4 (0.70-1.48) ng/dl Free T3 (1.71-3.71) pg/mL Urine Color (Yellow) Urine Clarity (Clear) Urine pH (5.0-8.0) pH Units Ur Specific Dana (1.010-1.025) Urine Protein (Neg-Trace) mg/dL Urine Glucose (UA) (Normal) mg/dL Urine Ketones (Negative) mg/dL Urine Blood (Negative) Urine Nitrite (Negative) Urine Bilirubin (Negative) Urine Urobilinogen (Normal) mg/dL Ur Leukocyte Esterase (Negative) Urine Microscopic RBC (0-3) per hpf Urine Microscopic WBC (0-3) per hpf Ur Squamous Epith Cells (None-Few) per lpf Urine Bacteria (None-Few) per hpf Hyaline Casts (None-Few) per lpf Chlamy pneumoniae PCR (Not Detect) Adenovirus (PCR) (Not Detect) B. pertussis DNA (PCR) (Not Detect) Coronavirus OC43 (PCR) (Not Detect) Coronavirus HKU1 (PCR) (Not Detect) Coronavirus 229E (PCR) (Not Detect) Coronavirus NL63 (PCR) (Not Detect) Human Metapneumovirus (Not Detect) Influenza A (H1) PCR (Not Detect) Influ A (H1N1/09) PCR (Not Detect) Influenza A (H3) PCR (Not Detect) Influenza A Untype (PCR) (Not Detect) Influenza Type B (PCR) (Not Detect) M.pneumoniae DNA (PCR) (Not Detect) Parainfluenza 1 (PCR) (Not Detect) Parainfluenza 2 (PCR) (Not Detect) Parainfluenza 3 (PCR) (Not Detect) Parainfluenza 4 (PCR) (Not Detect) RSV (PCR) (Not Detect) Entero/Rhino (PCR) (Not Detect) 11/13/16 11/13/16 11/13/16 Range/Units 05:20 07:23 10:54 WBC (4.3-11.1) K/mcL RBC (3.82-4.97) M/mcL Hgb (11.5-15.4) g/dL Hct (35.3-44.9) % MCV (83.0-100.0) fL MCH (28.0-33.3) pg MCHC (31.6-35.5) g/dL RDW (11.5-14.5) % Plt Count (140-400) K/mcL MPV (9.4-12.4) fL Immature Gran % (0-4) % Seg Neutrophils % % Band Neutrophils % (0-4) % Lymphocytes % % Monocytes % % Eosinophils % % Basophils % % Neutrophils # (1.6-8.9) K/mcL Lymphocytes # (0.6-4.6) K/mcL Monocytes # (0.0-1.3) K/mcL Eosinophils # (0.0-0.6) K/mcL Basophils # (0.0-0.2) K/mcL Nucleated RBCs/100 WBC (0) /100 WBC Hypersegmented Neuts (Not Present) Toxic Granulation (Not Present) Platelet Estimate (Normal) Large Platelets (Not Present) APTT (26.0-36.0) Seconds ABG pH 7.41 (7.32-7.45) pH Units ABG pCO2 57 H (35-45) mmHg ABG pO2 65 L (85-104) mmHg ABG HCO3 36.1 H (21-27) mEQ/L ABG Total CO2 37.8 H (20-26) mEq/L ABG O2 Saturation 93 L (95-98) % ABG Base Excess 9.0 H (-2.0 to 3.0) mEq/L Respiration Rate Blood Gas Modality VC+ Inspired O2 80 % Tidal Volume cc PEEP cm H2O Sodium (136-145) mEq/L Potassium (3.5-4.5) mEq/L Chloride (98-109) mEq/L Carbon Dioxide (19-29) mEq/L BUN (7-20) mg/dL Creatinine (0.57-1.11) mg/dL Est GFR ( Amer) (> 60) Est GFR (Non-Af Amer) (> 60) BUN/Creatinine Ratio (6-26) Glucose (70-99) mg/dL POC Glucose 171 H 213 H (58-89) Calculated Osmolality (280-300) Lactic Acid (0.5-2.2) mmol/L Calcium (8.6-10.8) mg/dL Ionized Calcium (1.15-1.35) mmol/L Phosphorus (2.3-4.7) mg/dL Magnesium (1.6-2.6) mg/dL Total Bilirubin (0.2-1.2) mg/dL Direct Bilirubin (0.0-0.5) mg/dL Indirect Bilirubin (0.0-1.2) mg/dL AST (5-34) Units/L ALT (0-55) Units/L Alkaline Phosphatase (38-126) Units/L Creatine Kinase (29-168) Units/L Troponin I (0-0.03) ng/mL Serum Total Protein (6.0-8.3) g/dL Albumin (3.5-5.0) g/dL Globulin (2.4-3.5) g/dL Albumin/Globulin Ratio (1.1-2.2) Triglycerides (< 150) mg/dL Lipase (8-78) Units/L TSH (0.350-4.840) mcIU/mL Free T4 (0.70-1.48) ng/dl Free T3 (1.71-3.71) pg/mL Urine Color (Yellow) Urine Clarity (Clear) Urine pH (5.0-8.0) pH Units Ur Specific Dana (1.010-1.025) Urine Protein (Neg-Trace) mg/dL Urine Glucose (UA) (Normal) mg/dL Urine Ketones (Negative) mg/dL Urine Blood (Negative) Urine Nitrite (Negative) Urine Bilirubin (Negative) Urine Urobilinogen (Normal) mg/dL Ur Leukocyte Esterase (Negative) Urine Microscopic RBC (0-3) per hpf Urine Microscopic WBC (0-3) per hpf Ur Squamous Epith Cells (None-Few) per lpf Urine Bacteria (None-Few) per hpf Hyaline Casts (None-Few) per lpf Chlamy pneumoniae PCR (Not Detect) Adenovirus (PCR) (Not Detect) B. pertussis DNA (PCR) (Not Detect) Coronavirus OC43 (PCR) (Not Detect) Coronavirus HKU1 (PCR) (Not Detect) Coronavirus 229E (PCR) (Not Detect) Coronavirus NL63 (PCR) (Not Detect) Human Metapneumovirus (Not Detect) Influenza A (H1) PCR (Not Detect) Influ A (H1N1/09) PCR (Not Detect) Influenza A (H3) PCR (Not Detect) Influenza A Untype (PCR) (Not Detect) Influenza Type B (PCR) (Not Detect) M.pneumoniae DNA (PCR) (Not Detect) Parainfluenza 1 (PCR) (Not Detect) Parainfluenza 2 (PCR) (Not Detect) Parainfluenza 3 (PCR) (Not Detect) Parainfluenza 4 (PCR) (Not Detect) RSV (PCR) (Not Detect) Entero/Rhino (PCR) (Not Detect) 11/13/16 11/13/16 11/14/16 Range/Units 17:11 23:36 03:15 WBC 9.7 (4.3-11.1) K/mcL RBC 4.99 H (3.82-4.97) M/mcL Hgb 14.4 (11.5-15.4) g/dL Hct 43.9 (35.3-44.9) % MCV 88.0 (83.0-100.0) fL MCH 28.9 (28.0-33.3) pg MCHC 32.8 (31.6-35.5) g/dL RDW 15.7 H (11.5-14.5) % Plt Count 201 (140-400) K/mcL MPV 11.1 (9.4-12.4) fL Immature Gran % 0.5 (0-4) % Seg Neutrophils % 92.5 % Band Neutrophils % (0-4) % Lymphocytes % 1.2 % Monocytes % 5.7 % Eosinophils % 0.0 % Basophils % 0.1 % Neutrophils # 9.0 H (1.6-8.9) K/mcL Lymphocytes # 0.1 L (0.6-4.6) K/mcL Monocytes # 0.6 (0.0-1.3) K/mcL Eosinophils # 0.0 (0.0-0.6) K/mcL Basophils # 0.0 (0.0-0.2) K/mcL Nucleated RBCs/100 WBC (0) /100 WBC Hypersegmented Neuts Present A (Not Present) Toxic Granulation Present A (Not Present) Platelet Estimate Normal (Normal) Large Platelets Present A (Not Present) APTT (26.0-36.0) Seconds ABG pH (7.32-7.45) pH Units ABG pCO2 (35-45) mmHg ABG pO2 (85-104) mmHg ABG HCO3 (21-27) mEQ/L ABG Total CO2 (20-26) mEq/L ABG O2 Saturation (95-98) % ABG Base Excess (-2.0 to 3.0) mEq/L Respiration Rate Blood Gas Modality Inspired O2 % Tidal Volume cc PEEP cm H2O Sodium (136-145) mEq/L Potassium (3.5-4.5) mEq/L Chloride (98-109) mEq/L Carbon Dioxide (19-29) mEq/L BUN (7-20) mg/dL Creatinine (0.57-1.11) mg/dL Est GFR ( Amer) (> 60) Est GFR (Non-Af Amer) (> 60) BUN/Creatinine Ratio (6-26) Glucose (70-99) mg/dL POC Glucose 200 H 185 H (58-89) Calculated Osmolality (280-300) Lactic Acid (0.5-2.2) mmol/L Calcium (8.6-10.8) mg/dL Ionized Calcium (1.15-1.35) mmol/L Phosphorus (2.3-4.7) mg/dL Magnesium (1.6-2.6) mg/dL Total Bilirubin (0.2-1.2) mg/dL Direct Bilirubin (0.0-0.5) mg/dL Indirect Bilirubin (0.0-1.2) mg/dL AST (5-34) Units/L ALT (0-55) Units/L Alkaline Phosphatase (38-126) Units/L Creatine Kinase (29-168) Units/L Troponin I (0-0.03) ng/mL Serum Total Protein (6.0-8.3) g/dL Albumin (3.5-5.0) g/dL Globulin (2.4-3.5) g/dL Albumin/Globulin Ratio (1.1-2.2) Triglycerides (< 150) mg/dL Lipase (8-78) Units/L TSH (0.350-4.840) mcIU/mL Free T4 (0.70-1.48) ng/dl Free T3 (1.71-3.71) pg/mL Urine Color (Yellow) Urine Clarity (Clear) Urine pH (5.0-8.0) pH Units Ur Specific Dana (1.010-1.025) Urine Protein (Neg-Trace) mg/dL Urine Glucose (UA) (Normal) mg/dL Urine Ketones (Negative) mg/dL Urine Blood (Negative) Urine Nitrite (Negative) Urine Bilirubin (Negative) Urine Urobilinogen (Normal) mg/dL Ur Leukocyte Esterase (Negative) Urine Microscopic RBC (0-3) per hpf Urine Microscopic WBC (0-3) per hpf Ur Squamous Epith Cells (None-Few) per lpf Urine Bacteria (None-Few) per hpf Hyaline Casts (None-Few) per lpf Chlamy pneumoniae PCR (Not Detect) Adenovirus (PCR) (Not Detect) B. pertussis DNA (PCR) (Not Detect) Coronavirus OC43 (PCR) (Not Detect) Coronavirus HKU1 (PCR) (Not Detect) Coronavirus 229E (PCR) (Not Detect) Coronavirus NL63 (PCR) (Not Detect) Human Metapneumovirus (Not Detect) Influenza A (H1) PCR (Not Detect) Influ A (H1N1/09) PCR (Not Detect) Influenza A (H3) PCR (Not Detect) Influenza A Untype (PCR) (Not Detect) Influenza Type B (PCR) (Not Detect) M.pneumoniae DNA (PCR) (Not Detect) Parainfluenza 1 (PCR) (Not Detect) Parainfluenza 2 (PCR) (Not Detect) Parainfluenza 3 (PCR) (Not Detect) Parainfluenza 4 (PCR) (Not Detect) RSV (PCR) (Not Detect) Entero/Rhino (PCR) (Not Detect) 11/14/16 11/14/16 11/14/16 Range/Units 03:15 04:40 11:47 WBC (4.3-11.1) K/mcL RBC (3.82-4.97) M/mcL Hgb (11.5-15.4) g/dL Hct (35.3-44.9) % MCV (83.0-100.0) fL MCH (28.0-33.3) pg MCHC (31.6-35.5) g/dL RDW (11.5-14.5) % Plt Count (140-400) K/mcL MPV (9.4-12.4) fL Immature Gran % (0-4) % Seg Neutrophils % % Band Neutrophils % (0-4) % Lymphocytes % % Monocytes % % Eosinophils % % Basophils % % Neutrophils # (1.6-8.9) K/mcL Lymphocytes # (0.6-4.6) K/mcL Monocytes # (0.0-1.3) K/mcL Eosinophils # (0.0-0.6) K/mcL Basophils # (0.0-0.2) K/mcL Nucleated RBCs/100 WBC (0) /100 WBC Hypersegmented Neuts (Not Present) Toxic Granulation (Not Present) Platelet Estimate (Normal) Large Platelets (Not Present) APTT (26.0-36.0) Seconds ABG pH 7.40 (7.32-7.45) pH Units ABG pCO2 60 H (35-45) mmHg ABG pO2 64 L (85-104) mmHg ABG HCO3 37.2 H (21-27) mEQ/L ABG Total CO2 39.0 H (20-26) mEq/L ABG O2 Saturation 92 L (95-98) % ABG Base Excess 10.2 H (-2.0 to 3.0) mEq/L Respiration Rate Blood Gas Modality [id number] Inspired O2 60.0 % Tidal Volume 360 cc PEEP 14.0 cm H2O Sodium 141 (136-145) mEq/L Potassium 3.5 (3.5-4.5) mEq/L Chloride 95 L (98-109) mEq/L Carbon Dioxide 31 H (19-29) mEq/L BUN 69 H (7-20) mg/dL Creatinine 1.96 H (0.57-1.11) mg/dL Est GFR ( Amer) 32 L (> 60) Est GFR (Non-Af Amer) 26 L (> 60) BUN/Creatinine Ratio 35 H (6-26) Glucose 208 H (70-99) mg/dL POC Glucose 202 H (58-89) Calculated Osmolality 318 H (280-300) Lactic Acid (0.5-2.2) mmol/L Calcium 9.8 (8.6-10.8) mg/dL Ionized Calcium 1.17 (1.15-1.35) mmol/L Phosphorus 4.9 H (2.3-4.7) mg/dL Magnesium 2.4 (1.6-2.6) mg/dL Total Bilirubin (0.2-1.2) mg/dL Direct Bilirubin (0.0-0.5) mg/dL Indirect Bilirubin (0.0-1.2) mg/dL AST (5-34) Units/L ALT (0-55) Units/L Alkaline Phosphatase (38-126) Units/L Creatine Kinase (29-168) Units/L Troponin I (0-0.03) ng/mL Serum Total Protein (6.0-8.3) g/dL Albumin (3.5-5.0) g/dL Globulin (2.4-3.5) g/dL Albumin/Globulin Ratio (1.1-2.2) Triglycerides (< 150) mg/dL Lipase (8-78) Units/L TSH (0.350-4.840) mcIU/mL Free T4 (0.70-1.48) ng/dl Free T3 (1.71-3.71) pg/mL Urine Color (Yellow) Urine Clarity (Clear) Urine pH (5.0-8.0) pH Units Ur Specific Dana (1.010-1.025) Urine Protein (Neg-Trace) mg/dL Urine Glucose (UA) (Normal) mg/dL Urine Ketones (Negative) mg/dL Urine Blood (Negative) Urine Nitrite (Negative) Urine Bilirubin (Negative) Urine Urobilinogen (Normal) mg/dL Ur Leukocyte Esterase (Negative) Urine Microscopic RBC (0-3) per hpf Urine Microscopic WBC (0-3) per hpf Ur Squamous Epith Cells (None-Few) per lpf Urine Bacteria (None-Few) per hpf Hyaline Casts (None-Few) per lpf Chlamy pneumoniae PCR (Not Detect) Adenovirus (PCR) (Not Detect) B. pertussis DNA (PCR) (Not Detect) Coronavirus OC43 (PCR) (Not Detect) Coronavirus HKU1 (PCR) (Not Detect) Coronavirus 229E (PCR) (Not Detect) Coronavirus NL63 (PCR) (Not Detect) Human Metapneumovirus (Not Detect) Influenza A (H1) PCR (Not Detect) Influ A (H1N1/09) PCR (Not Detect) Influenza A (H3) PCR (Not Detect) Influenza A Untype (PCR) (Not Detect) Influenza Type B (PCR) (Not Detect) M.pneumoniae DNA (PCR) (Not Detect) Parainfluenza 1 (PCR) (Not Detect) Parainfluenza 2 (PCR) (Not Detect) Parainfluenza 3 (PCR) (Not Detect) Parainfluenza 4 (PCR) (Not Detect) RSV (PCR) (Not Detect) Entero/Rhino (PCR) (Not Detect) 11/14/16 11/14/16 11/14/16 Range/Units 15:57 17:37 21:15 WBC (4.3-11.1) K/mcL RBC (3.82-4.97) M/mcL Hgb (11.5-15.4) g/dL Hct (35.3-44.9) % MCV (83.0-100.0) fL MCH (28.0-33.3) pg MCHC (31.6-35.5) g/dL RDW (11.5-14.5) % Plt Count (140-400) K/mcL MPV (9.4-12.4) fL Immature Gran % (0-4) % Seg Neutrophils % % Band Neutrophils % (0-4) % Lymphocytes % % Monocytes % % Eosinophils % % Basophils % % Neutrophils # (1.6-8.9) K/mcL Lymphocytes # (0.6-4.6) K/mcL Monocytes # (0.0-1.3) K/mcL Eosinophils # (0.0-0.6) K/mcL Basophils # (0.0-0.2) K/mcL Nucleated RBCs/100 WBC (0) /100 WBC Hypersegmented Neuts (Not Present) Toxic Granulation (Not Present) Platelet Estimate (Normal) Large Platelets (Not Present) APTT (26.0-36.0) Seconds ABG pH 7.50 H (7.32-7.45) pH Units ABG pCO2 46 H (35-45) mmHg ABG pO2 51 L (85-104) mmHg ABG HCO3 35.9 H (21-27) mEQ/L ABG Total CO2 37.3 H (20-26) mEq/L ABG O2 Saturation 89 L (95-98) % ABG Base Excess 11.3 H (-2.0 to 3.0) mEq/L Respiration Rate Blood Gas Modality VCT Inspired O2 60.0 % Tidal Volume 360 cc PEEP 8.0 cm H2O Sodium 142 (136-145) mEq/L Potassium 3.8 (3.5-4.5) mEq/L Chloride 97 L (98-109) mEq/L Carbon Dioxide 29 (19-29) mEq/L BUN 75 H (7-20) mg/dL Creatinine 1.94 H (0.57-1.11) mg/dL Est GFR ( Amer) 32 L (> 60) Est GFR (Non-Af Amer) 26 L (> 60) BUN/Creatinine Ratio 39 H (6-26) Glucose 190 H (70-99) mg/dL POC Glucose 174 H (58-89) Calculated Osmolality 321 H (280-300) Lactic Acid (0.5-2.2) mmol/L Calcium 10.0 (8.6-10.8) mg/dL Ionized Calcium (1.15-1.35) mmol/L Phosphorus 5.0 H (2.3-4.7) mg/dL Magnesium (1.6-2.6) mg/dL Total Bilirubin (0.2-1.2) mg/dL Direct Bilirubin (0.0-0.5) mg/dL Indirect Bilirubin (0.0-1.2) mg/dL AST (5-34) Units/L ALT (0-55) Units/L Alkaline Phosphatase (38-126) Units/L Creatine Kinase (29-168) Units/L Troponin I (0-0.03) ng/mL Serum Total Protein (6.0-8.3) g/dL Albumin 2.6 L (3.5-5.0) g/dL Globulin (2.4-3.5) g/dL Albumin/Globulin Ratio (1.1-2.2) Triglycerides (< 150) mg/dL Lipase (8-78) Units/L TSH (0.350-4.840) mcIU/mL Free T4 (0.70-1.48) ng/dl Free T3 (1.71-3.71) pg/mL Urine Color (Yellow) Urine Clarity (Clear) Urine pH (5.0-8.0) pH Units Ur Specific Dana (1.010-1.025) Urine Protein (Neg-Trace) mg/dL Urine Glucose (UA) (Normal) mg/dL Urine Ketones (Negative) mg/dL Urine Blood (Negative) Urine Nitrite (Negative) Urine Bilirubin (Negative) Urine Urobilinogen (Normal) mg/dL Ur Leukocyte Esterase (Negative) Urine Microscopic RBC (0-3) per hpf Urine Microscopic WBC (0-3) per hpf Ur Squamous Epith Cells (None-Few) per lpf Urine Bacteria (None-Few) per hpf Hyaline Casts (None-Few) per lpf Chlamy pneumoniae PCR (Not Detect) Adenovirus (PCR) (Not Detect) B. pertussis DNA (PCR) (Not Detect) Coronavirus OC43 (PCR) (Not Detect) Coronavirus HKU1 (PCR) (Not Detect) Coronavirus 229E (PCR) (Not Detect) Coronavirus NL63 (PCR) (Not Detect) Human Metapneumovirus (Not Detect) Influenza A (H1) PCR (Not Detect) Influ A (H1N1/09) PCR (Not Detect) Influenza A (H3) PCR (Not Detect) Influenza A Untype (PCR) (Not Detect) Influenza Type B (PCR) (Not Detect) M.pneumoniae DNA (PCR) (Not Detect) Parainfluenza 1 (PCR) (Not Detect) Parainfluenza 2 (PCR) (Not Detect) Parainfluenza 3 (PCR) (Not Detect) Parainfluenza 4 (PCR) (Not Detect) RSV (PCR) (Not Detect) Entero/Rhino (PCR) (Not Detect) 11/14/16 11/15/16 11/15/16 Range/Units 23:39 04:10 05:19 WBC 8.0 (4.3-11.1) K/mcL RBC 5.41 H (3.82-4.97) M/mcL Hgb 15.2 (11.5-15.4) g/dL Hct 47.1 H (35.3-44.9) % MCV 87.1 (83.0-100.0) fL MCH 28.1 (28.0-33.3) pg MCHC 32.3 (31.6-35.5) g/dL RDW 15.9 H (11.5-14.5) % Plt Count 210 (140-400) K/mcL MPV 11.4 (9.4-12.4) fL Immature Gran % 0.5 (0-4) % Seg Neutrophils % 91.3 % Band Neutrophils % (0-4) % Lymphocytes % 1.4 % Monocytes % 6.8 % Eosinophils % 0.0 % Basophils % 0.0 % Neutrophils # 7.3 (1.6-8.9) K/mcL Lymphocytes # 0.1 L (0.6-4.6) K/mcL Monocytes # 0.5 (0.0-1.3) K/mcL Eosinophils # 0.0 (0.0-0.6) K/mcL Basophils # 0.0 (0.0-0.2) K/mcL Nucleated RBCs/100 WBC (0) /100 WBC Hypersegmented Neuts (Not Present) Toxic Granulation (Not Present) Platelet Estimate Normal (Normal) Large Platelets (Not Present) APTT (26.0-36.0) Seconds ABG pH 7.40 (7.32-7.45) pH Units ABG pCO2 62 H (35-45) mmHg ABG pO2 58 L (85-104) mmHg ABG HCO3 38.4 H (21-27) mEQ/L ABG Total CO2 40.3 H (20-26) mEq/L ABG O2 Saturation 90 L (95-98) % ABG Base Excess 11.2 H (-2.0 to 3.0) mEq/L Respiration Rate Blood Gas Modality [id number] Inspired O2 60.0 % Tidal Volume 360 cc PEEP 8.0 cm H2O Sodium (136-145) mEq/L Potassium (3.5-4.5) mEq/L Chloride (98-109) mEq/L Carbon Dioxide (19-29) mEq/L BUN (7-20) mg/dL Creatinine (0.57-1.11) mg/dL Est GFR ( Amer) (> 60) Est GFR (Non-Af Amer) (> 60) BUN/Creatinine Ratio (6-26) Glucose (70-99) mg/dL POC Glucose 183 H (58-89) Calculated Osmolality (280-300) Lactic Acid (0.5-2.2) mmol/L Calcium (8.6-10.8) mg/dL Ionized Calcium (1.15-1.35) mmol/L Phosphorus (2.3-4.7) mg/dL Magnesium (1.6-2.6) mg/dL Total Bilirubin (0.2-1.2) mg/dL Direct Bilirubin (0.0-0.5) mg/dL Indirect Bilirubin (0.0-1.2) mg/dL AST (5-34) Units/L ALT (0-55) Units/L Alkaline Phosphatase (38-126) Units/L Creatine Kinase (29-168) Units/L Troponin I (0-0.03) ng/mL Serum Total Protein (6.0-8.3) g/dL Albumin (3.5-5.0) g/dL Globulin (2.4-3.5) g/dL Albumin/Globulin Ratio (1.1-2.2) Triglycerides (< 150) mg/dL Lipase (8-78) Units/L TSH (0.350-4.840) mcIU/mL Free T4 (0.70-1.48) ng/dl Free T3 (1.71-3.71) pg/mL Urine Color (Yellow) Urine Clarity (Clear) Urine pH (5.0-8.0) pH Units Ur Specific Dana (1.010-1.025) Urine Protein (Neg-Trace) mg/dL Urine Glucose (UA) (Normal) mg/dL Urine Ketones (Negative) mg/dL Urine Blood (Negative) Urine Nitrite (Negative) Urine Bilirubin (Negative) Urine Urobilinogen (Normal) mg/dL Ur Leukocyte Esterase (Negative) Urine Microscopic RBC (0-3) per hpf Urine Microscopic WBC (0-3) per hpf Ur Squamous Epith Cells (None-Few) per lpf Urine Bacteria (None-Few) per hpf Hyaline Casts (None-Few) per lpf Chlamy pneumoniae PCR (Not Detect) Adenovirus (PCR) (Not Detect) B. pertussis DNA (PCR) (Not Detect) Coronavirus OC43 (PCR) (Not Detect) Coronavirus HKU1 (PCR) (Not Detect) Coronavirus 229E (PCR) (Not Detect) Coronavirus NL63 (PCR) (Not Detect) Human Metapneumovirus (Not Detect) Influenza A (H1) PCR (Not Detect) Influ A (H1N1/09) PCR (Not Detect) Influenza A (H3) PCR (Not Detect) Influenza A Untype (PCR) (Not Detect) Influenza Type B (PCR) (Not Detect) M.pneumoniae DNA (PCR) (Not Detect) Parainfluenza 1 (PCR) (Not Detect) Parainfluenza 2 (PCR) (Not Detect) Parainfluenza 3 (PCR) (Not Detect) Parainfluenza 4 (PCR) (Not Detect) RSV (PCR) (Not Detect) Entero/Rhino (PCR) (Not Detect) 11/15/16 11/15/16 11/15/16 Range/Units 05:19 05:19 11:54 WBC (4.3-11.1) K/mcL RBC (3.82-4.97) M/mcL Hgb (11.5-15.4) g/dL Hct (35.3-44.9) % MCV (83.0-100.0) fL MCH (28.0-33.3) pg MCHC (31.6-35.5) g/dL RDW (11.5-14.5) % Plt Count (140-400) K/mcL MPV (9.4-12.4) fL Immature Gran % (0-4) % Seg Neutrophils % % Band Neutrophils % (0-4) % Lymphocytes % % Monocytes % % Eosinophils % % Basophils % % Neutrophils # (1.6-8.9) K/mcL Lymphocytes # (0.6-4.6) K/mcL Monocytes # (0.0-1.3) K/mcL Eosinophils # (0.0-0.6) K/mcL Basophils # (0.0-0.2) K/mcL Nucleated RBCs/100 WBC (0) /100 WBC Hypersegmented Neuts (Not Present) Toxic Granulation (Not Present) Platelet Estimate (Normal) Large Platelets (Not Present) APTT (26.0-36.0) Seconds ABG pH (7.32-7.45) pH Units ABG pCO2 (35-45) mmHg ABG pO2 (85-104) mmHg ABG HCO3 (21-27) mEQ/L ABG Total CO2 (20-26) mEq/L ABG O2 Saturation (95-98) % ABG Base Excess (-2.0 to 3.0) mEq/L Respiration Rate Blood Gas Modality Inspired O2 % Tidal Volume cc PEEP cm H2O Sodium 139 140 (136-145) mEq/L Potassium 4.2 4.2 (3.5-4.5) mEq/L Chloride 96 L 96 L (98-109) mEq/L Carbon Dioxide 28 29 (19-29) mEq/L BUN 80 H 79 H (7-20) mg/dL Creatinine 1.96 H 1.97 H (0.57-1.11) mg/dL Est GFR ( Amer) 32 L 31 L (> 60) Est GFR (Non-Af Amer) 26 L 26 L (> 60) BUN/Creatinine Ratio 41 H 40 H (6-26) Glucose 170 H 170 H (70-99) mg/dL POC Glucose 164 H (58-89) Calculated Osmolality 316 H 318 H (280-300) Lactic Acid (0.5-2.2) mmol/L Calcium 9.8 9.8 (8.6-10.8) mg/dL Ionized Calcium 1.16 (1.15-1.35) mmol/L Phosphorus 5.4 H 5.4 H (2.3-4.7) mg/dL Magnesium 2.0 (1.6-2.6) mg/dL Total Bilirubin (0.2-1.2) mg/dL Direct Bilirubin (0.0-0.5) mg/dL Indirect Bilirubin (0.0-1.2) mg/dL AST (5-34) Units/L ALT (0-55) Units/L Alkaline Phosphatase (38-126) Units/L Creatine Kinase (29-168) Units/L Troponin I (0-0.03) ng/mL Serum Total Protein (6.0-8.3) g/dL Albumin 2.6 L (3.5-5.0) g/dL Globulin (2.4-3.5) g/dL Albumin/Globulin Ratio (1.1-2.2) Triglycerides (< 150) mg/dL Lipase (8-78) Units/L TSH (0.350-4.840) mcIU/mL Free T4 (0.70-1.48) ng/dl Free T3 (1.71-3.71) pg/mL Urine Color (Yellow) Urine Clarity (Clear) Urine pH (5.0-8.0) pH Units Ur Specific Dana (1.010-1.025) Urine Protein (Neg-Trace) mg/dL Urine Glucose (UA) (Normal) mg/dL Urine Ketones (Negative) mg/dL Urine Blood (Negative) Urine Nitrite (Negative) Urine Bilirubin (Negative) Urine Urobilinogen (Normal) mg/dL Ur Leukocyte Esterase (Negative) Urine Microscopic RBC (0-3) per hpf Urine Microscopic WBC (0-3) per hpf Ur Squamous Epith Cells (None-Few) per lpf Urine Bacteria (None-Few) per hpf Hyaline Casts (None-Few) per lpf Chlamy pneumoniae PCR (Not Detect) Adenovirus (PCR) (Not Detect) B. pertussis DNA (PCR) (Not Detect) Coronavirus OC43 (PCR) (Not Detect) Coronavirus HKU1 (PCR) (Not Detect) Coronavirus 229E (PCR) (Not Detect) Coronavirus NL63 (PCR) (Not Detect) Human Metapneumovirus (Not Detect) Influenza A (H1) PCR (Not Detect) Influ A (H1N1/09) PCR (Not Detect) Influenza A (H3) PCR (Not Detect) Influenza A Untype (PCR) (Not Detect) Influenza Type B (PCR) (Not Detect) M.pneumoniae DNA (PCR) (Not Detect) Parainfluenza 1 (PCR) (Not Detect) Parainfluenza 2 (PCR) (Not Detect) Parainfluenza 3 (PCR) (Not Detect) Parainfluenza 4 (PCR) (Not Detect) RSV (PCR) (Not Detect) Entero/Rhino (PCR) (Not Detect) 11/15/16 11/15/16 11/15/16 Range/Units 17:10 18:34 23:31 WBC (4.3-11.1) K/mcL RBC (3.82-4.97) M/mcL Hgb (11.5-15.4) g/dL Hct (35.3-44.9) % MCV (83.0-100.0) fL MCH (28.0-33.3) pg MCHC (31.6-35.5) g/dL RDW (11.5-14.5) % Plt Count (140-400) K/mcL MPV (9.4-12.4) fL Immature Gran % (0-4) % Seg Neutrophils % % Band Neutrophils % (0-4) % Lymphocytes % % Monocytes % % Eosinophils % % Basophils % % Neutrophils # (1.6-8.9) K/mcL Lymphocytes # (0.6-4.6) K/mcL Monocytes # (0.0-1.3) K/mcL Eosinophils # (0.0-0.6) K/mcL Basophils # (0.0-0.2) K/mcL Nucleated RBCs/100 WBC (0) /100 WBC Hypersegmented Neuts (Not Present) Toxic Granulation (Not Present) Platelet Estimate (Normal) Large Platelets (Not Present) APTT (26.0-36.0) Seconds ABG pH (7.32-7.45) pH Units ABG pCO2 (35-45) mmHg ABG pO2 (85-104) mmHg ABG HCO3 (21-27) mEQ/L ABG Total CO2 (20-26) mEq/L ABG O2 Saturation (95-98) % ABG Base Excess (-2.0 to 3.0) mEq/L Respiration Rate Blood Gas Modality Inspired O2 % Tidal Volume cc PEEP cm H2O Sodium 142 (136-145) mEq/L Potassium 4.0 (3.5-4.5) mEq/L Chloride 96 L (98-109) mEq/L Carbon Dioxide 30 H (19-29) mEq/L BUN 90 H (7-20) mg/dL Creatinine 2.05 H (0.57-1.11) mg/dL Est GFR ( Amer) 30 L (> 60) Est GFR (Non-Af Amer) 25 L (> 60) BUN/Creatinine Ratio 44 H (6-26) Glucose 193 H (70-99) mg/dL POC Glucose 173 H 166 H (58-89) Calculated Osmolality 327 H (280-300) Lactic Acid (0.5-2.2) mmol/L Calcium 9.4 (8.6-10.8) mg/dL Ionized Calcium (1.15-1.35) mmol/L Phosphorus 5.5 H (2.3-4.7) mg/dL Magnesium (1.6-2.6) mg/dL Total Bilirubin (0.2-1.2) mg/dL Direct Bilirubin (0.0-0.5) mg/dL Indirect Bilirubin (0.0-1.2) mg/dL AST (5-34) Units/L ALT (0-55) Units/L Alkaline Phosphatase (38-126) Units/L Creatine Kinase (29-168) Units/L Troponin I (0-0.03) ng/mL Serum Total Protein (6.0-8.3) g/dL Albumin 2.5 L (3.5-5.0) g/dL Globulin (2.4-3.5) g/dL Albumin/Globulin Ratio (1.1-2.2) Triglycerides (< 150) mg/dL Lipase (8-78) Units/L TSH (0.350-4.840) mcIU/mL Free T4 (0.70-1.48) ng/dl Free T3 (1.71-3.71) pg/mL Urine Color (Yellow) Urine Clarity (Clear) Urine pH (5.0-8.0) pH Units Ur Specific Dana (1.010-1.025) Urine Protein (Neg-Trace) mg/dL Urine Glucose (UA) (Normal) mg/dL Urine Ketones (Negative) mg/dL Urine Blood (Negative) Urine Nitrite (Negative) Urine Bilirubin (Negative) Urine Urobilinogen (Normal) mg/dL Ur Leukocyte Esterase (Negative) Urine Microscopic RBC (0-3) per hpf Urine Microscopic WBC (0-3) per hpf Ur Squamous Epith Cells (None-Few) per lpf Urine Bacteria (None-Few) per hpf Hyaline Casts (None-Few) per lpf Chlamy pneumoniae PCR (Not Detect) Adenovirus (PCR) (Not Detect) B. pertussis DNA (PCR) (Not Detect) Coronavirus OC43 (PCR) (Not Detect) Coronavirus HKU1 (PCR) (Not Detect) Coronavirus 229E (PCR) (Not Detect) Coronavirus NL63 (PCR) (Not Detect) Human Metapneumovirus (Not Detect) Influenza A (H1) PCR (Not Detect) Influ A (H1N1/09) PCR (Not Detect) Influenza A (H3) PCR (Not Detect) Influenza A Untype (PCR) (Not Detect) Influenza Type B (PCR) (Not Detect) M.pneumoniae DNA (PCR) (Not Detect) Parainfluenza 1 (PCR) (Not Detect) Parainfluenza 2 (PCR) (Not Detect) Parainfluenza 3 (PCR) (Not Detect) Parainfluenza 4 (PCR) (Not Detect) RSV (PCR) (Not Detect) Entero/Rhino (PCR) (Not Detect) 11/16/16 11/16/16 11/16/16 Range/Units 03:25 03:25 04:50 WBC 9.1 (4.3-11.1) K/mcL RBC 5.03 H (3.82-4.97) M/mcL Hgb 14.3 (11.5-15.4) g/dL Hct 44.5 (35.3-44.9) % MCV 88.5 (83.0-100.0) fL MCH 28.4 (28.0-33.3) pg MCHC 32.1 (31.6-35.5) g/dL RDW 15.9 H (11.5-14.5) % Plt Count 191 (140-400) K/mcL MPV 11.4 (9.4-12.4) fL Immature Gran % (0-4) % Seg Neutrophils % 90.0 % Band Neutrophils % 2.0 (0-4) % Lymphocytes % 2.0 % Monocytes % 6.0 % Eosinophils % % Basophils % % Neutrophils # 8.4 (1.6-8.9) K/mcL Lymphocytes # 0.2 L (0.6-4.6) K/mcL Monocytes # 0.6 (0.0-1.3) K/mcL Eosinophils # (0.0-0.6) K/mcL Basophils # (0.0-0.2) K/mcL Nucleated RBCs/100 WBC (0) /100 WBC Hypersegmented Neuts (Not Present) Toxic Granulation (Not Present) Platelet Estimate Normal (Normal) Large Platelets Present A (Not Present) APTT (26.0-36.0) Seconds ABG pH 7.33 (7.32-7.45) pH Units ABG pCO2 75 H* (35-45) mmHg ABG pO2 66 L (85-104) mmHg ABG HCO3 39.5 H (21-27) mEQ/L ABG Total CO2 41.8 H (20-26) mEq/L ABG O2 Saturation 91 L (95-98) % ABG Base Excess 9.9 H (-2.0 to 3.0) mEq/L Respiration Rate Blood Gas Modality VC+ Inspired O2 50 % Tidal Volume cc PEEP cm H2O Sodium 141 (136-145) mEq/L Potassium 4.2 (3.5-4.5) mEq/L Chloride 96 L (98-109) mEq/L Carbon Dioxide 30 H (19-29) mEq/L BUN 100 H (7-20) mg/dL Creatinine 2.39 H (0.57-1.11) mg/dL Est GFR ( Amer) 25 L (> 60) Est GFR (Non-Af Amer) 21 L (> 60) BUN/Creatinine Ratio 42 H (6-26) Glucose 190 H (70-99) mg/dL POC Glucose (58-89) Calculated Osmolality 328 H (280-300) Lactic Acid (0.5-2.2) mmol/L Calcium 9.3 (8.6-10.8) mg/dL Ionized Calcium 1.14 L (1.15-1.35) mmol/L Phosphorus 7.1 H (2.3-4.7) mg/dL Magnesium 1.8 (1.6-2.6) mg/dL Total Bilirubin (0.2-1.2) mg/dL Direct Bilirubin (0.0-0.5) mg/dL Indirect Bilirubin (0.0-1.2) mg/dL AST (5-34) Units/L ALT (0-55) Units/L Alkaline Phosphatase (38-126) Units/L Creatine Kinase (29-168) Units/L Troponin I (0-0.03) ng/mL Serum Total Protein (6.0-8.3) g/dL Albumin (3.5-5.0) g/dL Globulin (2.4-3.5) g/dL Albumin/Globulin Ratio (1.1-2.2) Triglycerides (< 150) mg/dL Lipase (8-78) Units/L TSH (0.350-4.840) mcIU/mL Free T4 (0.70-1.48) ng/dl Free T3 (1.71-3.71) pg/mL Urine Color (Yellow) Urine Clarity (Clear) Urine pH (5.0-8.0) pH Units Ur Specific Dana (1.010-1.025) Urine Protein (Neg-Trace) mg/dL Urine Glucose (UA) (Normal) mg/dL Urine Ketones (Negative) mg/dL Urine Blood (Negative) Urine Nitrite (Negative) Urine Bilirubin (Negative) Urine Urobilinogen (Normal) mg/dL Ur Leukocyte Esterase (Negative) Urine Microscopic RBC (0-3) per hpf Urine Microscopic WBC (0-3) per hpf Ur Squamous Epith Cells (None-Few) per lpf Urine Bacteria (None-Few) per hpf Hyaline Casts (None-Few) per lpf Chlamy pneumoniae PCR (Not Detect) Adenovirus (PCR) (Not Detect) B. pertussis DNA (PCR) (Not Detect) Coronavirus OC43 (PCR) (Not Detect) Coronavirus HKU1 (PCR) (Not Detect) Coronavirus 229E (PCR) (Not Detect) Coronavirus NL63 (PCR) (Not Detect) Human Metapneumovirus (Not Detect) Influenza A (H1) PCR (Not Detect) Influ A (H1N1/09) PCR (Not Detect) Influenza A (H3) PCR (Not Detect) Influenza A Untype (PCR) (Not Detect) Influenza Type B (PCR) (Not Detect) M.pneumoniae DNA (PCR) (Not Detect) Parainfluenza 1 (PCR) (Not Detect) Parainfluenza 2 (PCR) (Not Detect) Parainfluenza 3 (PCR) (Not Detect) Parainfluenza 4 (PCR) (Not Detect) RSV (PCR) (Not Detect) Entero/Rhino (PCR) (Not Detect) 11/16/16 11/16/16 11/16/16 Range/Units 04:52 11:17 17:11 WBC (4.3-11.1) K/mcL RBC (3.82-4.97) M/mcL Hgb (11.5-15.4) g/dL Hct (35.3-44.9) % MCV (83.0-100.0) fL MCH (28.0-33.3) pg MCHC (31.6-35.5) g/dL RDW (11.5-14.5) % Plt Count (140-400) K/mcL MPV (9.4-12.4) fL Immature Gran % (0-4) % Seg Neutrophils % % Band Neutrophils % (0-4) % Lymphocytes % % Monocytes % % Eosinophils % % Basophils % % Neutrophils # (1.6-8.9) K/mcL Lymphocytes # (0.6-4.6) K/mcL Monocytes # (0.0-1.3) K/mcL Eosinophils # (0.0-0.6) K/mcL Basophils # (0.0-0.2) K/mcL Nucleated RBCs/100 WBC (0) /100 WBC Hypersegmented Neuts (Not Present) Toxic Granulation (Not Present) Platelet Estimate (Normal) Large Platelets (Not Present) APTT (26.0-36.0) Seconds ABG pH (7.32-7.45) pH Units ABG pCO2 (35-45) mmHg ABG pO2 (85-104) mmHg ABG HCO3 (21-27) mEQ/L ABG Total CO2 (20-26) mEq/L ABG O2 Saturation (95-98) % ABG Base Excess (-2.0 to 3.0) mEq/L Respiration Rate Blood Gas Modality Inspired O2 % Tidal Volume cc PEEP cm H2O Sodium (136-145) mEq/L Potassium (3.5-4.5) mEq/L Chloride (98-109) mEq/L Carbon Dioxide (19-29) mEq/L BUN (7-20) mg/dL Creatinine (0.57-1.11) mg/dL Est GFR ( Amer) (> 60) Est GFR (Non-Af Amer) (> 60) BUN/Creatinine Ratio (6-26) Glucose (70-99) mg/dL POC Glucose 183 H 156 H 164 H (58-89) Calculated Osmolality (280-300) Lactic Acid (0.5-2.2) mmol/L Calcium (8.6-10.8) mg/dL Ionized Calcium (1.15-1.35) mmol/L Phosphorus (2.3-4.7) mg/dL Magnesium (1.6-2.6) mg/dL Total Bilirubin (0.2-1.2) mg/dL Direct Bilirubin (0.0-0.5) mg/dL Indirect Bilirubin (0.0-1.2) mg/dL AST (5-34) Units/L ALT (0-55) Units/L Alkaline Phosphatase (38-126) Units/L Creatine Kinase (29-168) Units/L Troponin I (0-0.03) ng/mL Serum Total Protein (6.0-8.3) g/dL Albumin (3.5-5.0) g/dL Globulin (2.4-3.5) g/dL Albumin/Globulin Ratio (1.1-2.2) Triglycerides (< 150) mg/dL Lipase (8-78) Units/L TSH (0.350-4.840) mcIU/mL Free T4 (0.70-1.48) ng/dl Free T3 (1.71-3.71) pg/mL Urine Color (Yellow) Urine Clarity (Clear) Urine pH (5.0-8.0) pH Units Ur Specific Dana (1.010-1.025) Urine Protein (Neg-Trace) mg/dL Urine Glucose (UA) (Normal) mg/dL Urine Ketones (Negative) mg/dL Urine Blood (Negative) Urine Nitrite (Negative) Urine Bilirubin (Negative) Urine Urobilinogen (Normal) mg/dL Ur Leukocyte Esterase (Negative) Urine Microscopic RBC (0-3) per hpf Urine Microscopic WBC (0-3) per hpf Ur Squamous Epith Cells (None-Few) per lpf Urine Bacteria (None-Few) per hpf Hyaline Casts (None-Few) per lpf Chlamy pneumoniae PCR (Not Detect) Adenovirus (PCR) (Not Detect) B. pertussis DNA (PCR) (Not Detect) Coronavirus OC43 (PCR) (Not Detect) Coronavirus HKU1 (PCR) (Not Detect) Coronavirus 229E (PCR) (Not Detect) Coronavirus NL63 (PCR) (Not Detect) Human Metapneumovirus (Not Detect) Influenza A (H1) PCR (Not Detect) Influ A (H1N1/09) PCR (Not Detect) Influenza A (H3) PCR (Not Detect) Influenza A Untype (PCR) (Not Detect) Influenza Type B (PCR) (Not Detect) M.pneumoniae DNA (PCR) (Not Detect) Parainfluenza 1 (PCR) (Not Detect) Parainfluenza 2 (PCR) (Not Detect) Parainfluenza 3 (PCR) (Not Detect) Parainfluenza 4 (PCR) (Not Detect) RSV (PCR) (Not Detect) Entero/Rhino (PCR) (Not Detect) 11/16/16 11/17/16 11/17/16 Range/Units 23:44 04:11 04:11 WBC 8.7 (4.3-11.1) K/mcL RBC 4.67 (3.82-4.97) M/mcL Hgb 13.0 (11.5-15.4) g/dL Hct 41.5 (35.3-44.9) % MCV 88.9 (83.0-100.0) fL MCH 27.8 L (28.0-33.3) pg MCHC 31.3 L (31.6-35.5) g/dL RDW 15.9 H (11.5-14.5) % Plt Count 166 (140-400) K/mcL MPV 11.7 (9.4-12.4) fL Immature Gran % 1.3 (0-4) % Seg Neutrophils % 84.0 % Band Neutrophils % (0-4) % Lymphocytes % 3.4 % Monocytes % 11.1 % Eosinophils % 0.1 % Basophils % 0.1 % Neutrophils # 7.3 (1.6-8.9) K/mcL Lymphocytes # 0.3 L (0.6-4.6) K/mcL Monocytes # 1.0 (0.0-1.3) K/mcL Eosinophils # 0.0 (0.0-0.6) K/mcL Basophils # 0.0 (0.0-0.2) K/mcL Nucleated RBCs/100 WBC (0) /100 WBC Hypersegmented Neuts (Not Present) Toxic Granulation (Not Present) Platelet Estimate (Normal) Large Platelets (Not Present) APTT (26.0-36.0) Seconds ABG pH (7.32-7.45) pH Units ABG pCO2 (35-45) mmHg ABG pO2 (85-104) mmHg ABG HCO3 (21-27) mEQ/L ABG Total CO2 (20-26) mEq/L ABG O2 Saturation (95-98) % ABG Base Excess (-2.0 to 3.0) mEq/L Respiration Rate Blood Gas Modality Inspired O2 % Tidal Volume cc PEEP cm H2O Sodium 140 (136-145) mEq/L Potassium 4.2 (3.5-4.5) mEq/L Chloride 97 L (98-109) mEq/L Carbon Dioxide 31 H (19-29) mEq/L BUN 116 H (7-20) mg/dL Creatinine 3.10 H (0.57-1.11) mg/dL Est GFR ( Amer) 19 L (> 60) Est GFR (Non-Af Amer) 15 L (> 60) BUN/Creatinine Ratio 37 H (6-26) Glucose 148 H (70-99) mg/dL POC Glucose 155 H (58-89) Calculated Osmolality 330 H (280-300) Lactic Acid (0.5-2.2) mmol/L Calcium 8.8 (8.6-10.8) mg/dL Ionized Calcium (1.15-1.35) mmol/L Phosphorus 7.7 H (2.3-4.7) mg/dL Magnesium 2.6 (1.6-2.6) mg/dL Total Bilirubin 0.6 (0.2-1.2) mg/dL Direct Bilirubin (0.0-0.5) mg/dL Indirect Bilirubin (0.0-1.2) mg/dL AST 11 (5-34) Units/L ALT 31 (0-55) Units/L Alkaline Phosphatase 46 (38-126) Units/L Creatine Kinase (29-168) Units/L Troponin I (0-0.03) ng/mL Serum Total Protein 5.3 L (6.0-8.3) g/dL Albumin 2.4 L (3.5-5.0) g/dL Globulin 2.9 (2.4-3.5) g/dL Albumin/Globulin Ratio 0.8 L (1.1-2.2) Triglycerides (< 150) mg/dL Lipase (8-78) Units/L TSH (0.350-4.840) mcIU/mL Free T4 (0.70-1.48) ng/dl Free T3 (1.71-3.71) pg/mL Urine Color (Yellow) Urine Clarity (Clear) Urine pH (5.0-8.0) pH Units Ur Specific Dana (1.010-1.025) Urine Protein (Neg-Trace) mg/dL Urine Glucose (UA) (Normal) mg/dL Urine Ketones (Negative) mg/dL Urine Blood (Negative) Urine Nitrite (Negative) Urine Bilirubin (Negative) Urine Urobilinogen (Normal) mg/dL Ur Leukocyte Esterase (Negative) Urine Microscopic RBC (0-3) per hpf Urine Microscopic WBC (0-3) per hpf Ur Squamous Epith Cells (None-Few) per lpf Urine Bacteria (None-Few) per hpf Hyaline Casts (None-Few) per lpf Chlamy pneumoniae PCR (Not Detect) Adenovirus (PCR) (Not Detect) B. pertussis DNA (PCR) (Not Detect) Coronavirus OC43 (PCR) (Not Detect) Coronavirus HKU1 (PCR) (Not Detect) Coronavirus 229E (PCR) (Not Detect) Coronavirus NL63 (PCR) (Not Detect) Human Metapneumovirus (Not Detect) Influenza A (H1) PCR (Not Detect) Influ A (H1N1/09) PCR (Not Detect) Influenza A (H3) PCR (Not Detect) Influenza A Untype (PCR) (Not Detect) Influenza Type B (PCR) (Not Detect) M.pneumoniae DNA (PCR) (Not Detect) Parainfluenza 1 (PCR) (Not Detect) Parainfluenza 2 (PCR) (Not Detect) Parainfluenza 3 (PCR) (Not Detect) Parainfluenza 4 (PCR) (Not Detect) RSV (PCR) (Not Detect) Entero/Rhino (PCR) (Not Detect) 11/17/16 11/17/16 11/17/16 Range/Units 04:17 04:30 11:54 WBC (4.3-11.1) K/mcL RBC (3.82-4.97) M/mcL Hgb (11.5-15.4) g/dL Hct (35.3-44.9) % MCV (83.0-100.0) fL MCH (28.0-33.3) pg MCHC (31.6-35.5) g/dL RDW (11.5-14.5) % Plt Count (140-400) K/mcL MPV (9.4-12.4) fL Immature Gran % (0-4) % Seg Neutrophils % % Band Neutrophils % (0-4) % Lymphocytes % % Monocytes % % Eosinophils % % Basophils % % Neutrophils # (1.6-8.9) K/mcL Lymphocytes # (0.6-4.6) K/mcL Monocytes # (0.0-1.3) K/mcL Eosinophils # (0.0-0.6) K/mcL Basophils # (0.0-0.2) K/mcL Nucleated RBCs/100 WBC (0) /100 WBC Hypersegmented Neuts (Not Present) Toxic Granulation (Not Present) Platelet Estimate (Normal) Large Platelets (Not Present) APTT (26.0-36.0) Seconds ABG pH 7.32 (7.32-7.45) pH Units ABG pCO2 72 H* (35-45) mmHg ABG pO2 82 L (85-104) mmHg ABG HCO3 37.1 H (21-27) mEQ/L ABG Total CO2 39.3 H (20-26) mEq/L ABG O2 Saturation 95 (95-98) % ABG Base Excess 8.3 H (-2.0 to 3.0) mEq/L Respiration Rate Blood Gas Modality VC Inspired O2 50 % Tidal Volume cc PEEP cm H2O Sodium (136-145) mEq/L Potassium (3.5-4.5) mEq/L Chloride (98-109) mEq/L Carbon Dioxide (19-29) mEq/L BUN (7-20) mg/dL Creatinine (0.57-1.11) mg/dL Est GFR ( Amer) (> 60) Est GFR (Non-Af Amer) (> 60) BUN/Creatinine Ratio (6-26) Glucose (70-99) mg/dL POC Glucose 131 H (58-89) Calculated Osmolality (280-300) Lactic Acid (0.5-2.2) mmol/L Calcium (8.6-10.8) mg/dL Ionized Calcium 1.11 L (1.15-1.35) mmol/L Phosphorus (2.3-4.7) mg/dL Magnesium (1.6-2.6) mg/dL Total Bilirubin (0.2-1.2) mg/dL Direct Bilirubin (0.0-0.5) mg/dL Indirect Bilirubin (0.0-1.2) mg/dL AST (5-34) Units/L ALT (0-55) Units/L Alkaline Phosphatase (38-126) Units/L Creatine Kinase (29-168) Units/L Troponin I (0-0.03) ng/mL Serum Total Protein (6.0-8.3) g/dL Albumin (3.5-5.0) g/dL Globulin (2.4-3.5) g/dL Albumin/Globulin Ratio (1.1-2.2) Triglycerides (< 150) mg/dL Lipase (8-78) Units/L TSH (0.350-4.840) mcIU/mL Free T4 (0.70-1.48) ng/dl Free T3 (1.71-3.71) pg/mL Urine Color (Yellow) Urine Clarity (Clear) Urine pH (5.0-8.0) pH Units Ur Specific Dana (1.010-1.025) Urine Protein (Neg-Trace) mg/dL Urine Glucose (UA) (Normal) mg/dL Urine Ketones (Negative) mg/dL Urine Blood (Negative) Urine Nitrite (Negative) Urine Bilirubin (Negative) Urine Urobilinogen (Normal) mg/dL Ur Leukocyte Esterase (Negative) Urine Microscopic RBC (0-3) per hpf Urine Microscopic WBC (0-3) per hpf Ur Squamous Epith Cells (None-Few) per lpf Urine Bacteria (None-Few) per hpf Hyaline Casts (None-Few) per lpf Chlamy pneumoniae PCR (Not Detect) Adenovirus (PCR) (Not Detect) B. pertussis DNA (PCR) (Not Detect) Coronavirus OC43 (PCR) (Not Detect) Coronavirus HKU1 (PCR) (Not Detect) Coronavirus 229E (PCR) (Not Detect) Coronavirus NL63 (PCR) (Not Detect) Human Metapneumovirus (Not Detect) Influenza A (H1) PCR (Not Detect) Influ A (H1N1/09) PCR (Not Detect) Influenza A (H3) PCR (Not Detect) Influenza A Untype (PCR) (Not Detect) Influenza Type B (PCR) (Not Detect) M.pneumoniae DNA (PCR) (Not Detect) Parainfluenza 1 (PCR) (Not Detect) Parainfluenza 2 (PCR) (Not Detect) Parainfluenza 3 (PCR) (Not Detect) Parainfluenza 4 (PCR) (Not Detect) RSV (PCR) (Not Detect) Entero/Rhino (PCR) (Not Detect) 11/17/16 11/17/16 11/18/16 Range/Units 17:29 23:39 03:57 WBC 8.5 (4.3-11.1) K/mcL RBC 4.62 (3.82-4.97) M/mcL Hgb 13.0 (11.5-15.4) g/dL Hct 41.1 (35.3-44.9) % MCV 89.0 (83.0-100.0) fL MCH 28.1 (28.0-33.3) pg MCHC 31.6 (31.6-35.5) g/dL RDW 15.9 H (11.5-14.5) % Plt Count 150 (140-400) K/mcL MPV 12.1 (9.4-12.4) fL Immature Gran % 0.7 (0-4) % Seg Neutrophils % 81.0 % Band Neutrophils % (0-4) % Lymphocytes % 8.0 % Monocytes % 9.4 % Eosinophils % 0.8 % Basophils % 0.1 % Neutrophils # 6.9 (1.6-8.9) K/mcL Lymphocytes # 0.7 (0.6-4.6) K/mcL Monocytes # 0.8 (0.0-1.3) K/mcL Eosinophils # 0.1 (0.0-0.6) K/mcL Basophils # 0.0 (0.0-0.2) K/mcL Nucleated RBCs/100 WBC (0) /100 WBC Hypersegmented Neuts (Not Present) Toxic Granulation (Not Present) Platelet Estimate (Normal) Large Platelets (Not Present) APTT (26.0-36.0) Seconds ABG pH (7.32-7.45) pH Units ABG pCO2 (35-45) mmHg ABG pO2 (85-104) mmHg ABG HCO3 (21-27) mEQ/L ABG Total CO2 (20-26) mEq/L ABG O2 Saturation (95-98) % ABG Base Excess (-2.0 to 3.0) mEq/L Respiration Rate Blood Gas Modality Inspired O2 % Tidal Volume cc PEEP cm H2O Sodium (136-145) mEq/L Potassium (3.5-4.5) mEq/L Chloride (98-109) mEq/L Carbon Dioxide (19-29) mEq/L BUN (7-20) mg/dL Creatinine (0.57-1.11) mg/dL Est GFR ( Amer) (> 60) Est GFR (Non-Af Amer) (> 60) BUN/Creatinine Ratio (6-26) Glucose (70-99) mg/dL POC Glucose 187 H 126 H (58-89) Calculated Osmolality (280-300) Lactic Acid (0.5-2.2) mmol/L Calcium (8.6-10.8) mg/dL Ionized Calcium (1.15-1.35) mmol/L Phosphorus (2.3-4.7) mg/dL Magnesium (1.6-2.6) mg/dL Total Bilirubin (0.2-1.2) mg/dL Direct Bilirubin (0.0-0.5) mg/dL Indirect Bilirubin (0.0-1.2) mg/dL AST (5-34) Units/L ALT (0-55) Units/L Alkaline Phosphatase (38-126) Units/L Creatine Kinase (29-168) Units/L Troponin I (0-0.03) ng/mL Serum Total Protein (6.0-8.3) g/dL Albumin (3.5-5.0) g/dL Globulin (2.4-3.5) g/dL Albumin/Globulin Ratio (1.1-2.2) Triglycerides (< 150) mg/dL Lipase (8-78) Units/L TSH (0.350-4.840) mcIU/mL Free T4 (0.70-1.48) ng/dl Free T3 (1.71-3.71) pg/mL Urine Color (Yellow) Urine Clarity (Clear) Urine pH (5.0-8.0) pH Units Ur Specific Dana (1.010-1.025) Urine Protein (Neg-Trace) mg/dL Urine Glucose (UA) (Normal) mg/dL Urine Ketones (Negative) mg/dL Urine Blood (Negative) Urine Nitrite (Negative) Urine Bilirubin (Negative) Urine Urobilinogen (Normal) mg/dL Ur Leukocyte Esterase (Negative) Urine Microscopic RBC (0-3) per hpf Urine Microscopic WBC (0-3) per hpf Ur Squamous Epith Cells (None-Few) per lpf Urine Bacteria (None-Few) per hpf Hyaline Casts (None-Few) per lpf Chlamy pneumoniae PCR (Not Detect) Adenovirus (PCR) (Not Detect) B. pertussis DNA (PCR) (Not Detect) Coronavirus OC43 (PCR) (Not Detect) Coronavirus HKU1 (PCR) (Not Detect) Coronavirus 229E (PCR) (Not Detect) Coronavirus NL63 (PCR) (Not Detect) Human Metapneumovirus (Not Detect) Influenza A (H1) PCR (Not Detect) Influ A (H1N1/09) PCR (Not Detect) Influenza A (H3) PCR (Not Detect) Influenza A Untype (PCR) (Not Detect) Influenza Type B (PCR) (Not Detect) M.pneumoniae DNA (PCR) (Not Detect) Parainfluenza 1 (PCR) (Not Detect) Parainfluenza 2 (PCR) (Not Detect) Parainfluenza 3 (PCR) (Not Detect) Parainfluenza 4 (PCR) (Not Detect) RSV (PCR) (Not Detect) Entero/Rhino (PCR) (Not Detect) 11/18/16 11/18/16 11/18/16 Range/Units 03:57 04:08 05:10 WBC (4.3-11.1) K/mcL RBC (3.82-4.97) M/mcL Hgb (11.5-15.4) g/dL Hct (35.3-44.9) % MCV (83.0-100.0) fL MCH (28.0-33.3) pg MCHC (31.6-35.5) g/dL RDW (11.5-14.5) % Plt Count (140-400) K/mcL MPV (9.4-12.4) fL Immature Gran % (0-4) % Seg Neutrophils % % Band Neutrophils % (0-4) % Lymphocytes % % Monocytes % % Eosinophils % % Basophils % % Neutrophils # (1.6-8.9) K/mcL Lymphocytes # (0.6-4.6) K/mcL Monocytes # (0.0-1.3) K/mcL Eosinophils # (0.0-0.6) K/mcL Basophils # (0.0-0.2) K/mcL Nucleated RBCs/100 WBC (0) /100 WBC Hypersegmented Neuts (Not Present) Toxic Granulation (Not Present) Platelet Estimate (Normal) Large Platelets (Not Present) APTT (26.0-36.0) Seconds ABG pH 7.28 L (7.32-7.45) pH Units ABG pCO2 83 H* (35-45) mmHg ABG pO2 77 L (85-104) mmHg ABG HCO3 39.0 H (21-27) mEQ/L ABG Total CO2 41.5 H (20-26) mEq/L ABG O2 Saturation 93 L (95-98) % ABG Base Excess 8.9 H (-2.0 to 3.0) mEq/L Respiration Rate Blood Gas Modality vct Inspired O2 40 % Tidal Volume cc PEEP cm H2O Sodium 143 (136-145) mEq/L Potassium 3.8 (3.5-4.5) mEq/L Chloride 98 (98-109) mEq/L Carbon Dioxide 30 H (19-29) mEq/L BUN 130 H (7-20) mg/dL Creatinine 3.03 H (0.57-1.11) mg/dL Est GFR ( Amer) 19 L (> 60) Est GFR (Non-Af Amer) 16 L (> 60) BUN/Creatinine Ratio 43 H (6-26) Glucose 128 H (70-99) mg/dL POC Glucose 118 H (58-89) Calculated Osmolality 340 H (280-300) Lactic Acid (0.5-2.2) mmol/L Calcium 8.4 L (8.6-10.8) mg/dL Ionized Calcium (1.15-1.35) mmol/L Phosphorus (2.3-4.7) mg/dL Magnesium (1.6-2.6) mg/dL Total Bilirubin 0.6 (0.2-1.2) mg/dL Direct Bilirubin (0.0-0.5) mg/dL Indirect Bilirubin (0.0-1.2) mg/dL AST 11 (5-34) Units/L ALT 31 (0-55) Units/L Alkaline Phosphatase 49 (38-126) Units/L Creatine Kinase (29-168) Units/L Troponin I (0-0.03) ng/mL Serum Total Protein 5.4 L (6.0-8.3) g/dL Albumin 2.5 L (3.5-5.0) g/dL Globulin 2.9 (2.4-3.5) g/dL Albumin/Globulin Ratio 0.9 L (1.1-2.2) Triglycerides (< 150) mg/dL Lipase (8-78) Units/L TSH (0.350-4.840) mcIU/mL Free T4 (0.70-1.48) ng/dl Free T3 (1.71-3.71) pg/mL Urine Color (Yellow) Urine Clarity (Clear) Urine pH (5.0-8.0) pH Units Ur Specific Dana (1.010-1.025) Urine Protein (Neg-Trace) mg/dL Urine Glucose (UA) (Normal) mg/dL Urine Ketones (Negative) mg/dL Urine Blood (Negative) Urine Nitrite (Negative) Urine Bilirubin (Negative) Urine Urobilinogen (Normal) mg/dL Ur Leukocyte Esterase (Negative) Urine Microscopic RBC (0-3) per hpf Urine Microscopic WBC (0-3) per hpf Ur Squamous Epith Cells (None-Few) per lpf Urine Bacteria (None-Few) per hpf Hyaline Casts (None-Few) per lpf Chlamy pneumoniae PCR (Not Detect) Adenovirus (PCR) (Not Detect) B. pertussis DNA (PCR) (Not Detect) Coronavirus OC43 (PCR) (Not Detect) Coronavirus HKU1 (PCR) (Not Detect) Coronavirus 229E (PCR) (Not Detect) Coronavirus NL63 (PCR) (Not Detect) Human Metapneumovirus (Not Detect) Influenza A (H1) PCR (Not Detect) Influ A (H1N1/09) PCR (Not Detect) Influenza A (H3) PCR (Not Detect) Influenza A Untype (PCR) (Not Detect) Influenza Type B (PCR) (Not Detect) M.pneumoniae DNA (PCR) (Not Detect) Parainfluenza 1 (PCR) (Not Detect) Parainfluenza 2 (PCR) (Not Detect) Parainfluenza 3 (PCR) (Not Detect) Parainfluenza 4 (PCR) (Not Detect) RSV (PCR) (Not Detect) Entero/Rhino (PCR) (Not Detect) 11/18/16 11/18/16 11/18/16 Range/Units 11:14 16:51 23:10 WBC (4.3-11.1) K/mcL RBC (3.82-4.97) M/mcL Hgb (11.5-15.4) g/dL Hct (35.3-44.9) % MCV (83.0-100.0) fL MCH (28.0-33.3) pg MCHC (31.6-35.5) g/dL RDW (11.5-14.5) % Plt Count (140-400) K/mcL MPV (9.4-12.4) fL Immature Gran % (0-4) % Seg Neutrophils % % Band Neutrophils % (0-4) % Lymphocytes % % Monocytes % % Eosinophils % % Basophils % % Neutrophils # (1.6-8.9) K/mcL Lymphocytes # (0.6-4.6) K/mcL Monocytes # (0.0-1.3) K/mcL Eosinophils # (0.0-0.6) K/mcL Basophils # (0.0-0.2) K/mcL Nucleated RBCs/100 WBC (0) /100 WBC Hypersegmented Neuts (Not Present) Toxic Granulation (Not Present) Platelet Estimate (Normal) Large Platelets (Not Present) APTT (26.0-36.0) Seconds ABG pH (7.32-7.45) pH Units ABG pCO2 (35-45) mmHg ABG pO2 (85-104) mmHg ABG HCO3 (21-27) mEQ/L ABG Total CO2 (20-26) mEq/L ABG O2 Saturation (95-98) % ABG Base Excess (-2.0 to 3.0) mEq/L Respiration Rate Blood Gas Modality Inspired O2 % Tidal Volume cc PEEP cm H2O Sodium (136-145) mEq/L Potassium (3.5-4.5) mEq/L Chloride (98-109) mEq/L Carbon Dioxide (19-29) mEq/L BUN (7-20) mg/dL Creatinine (0.57-1.11) mg/dL Est GFR ( Amer) (> 60) Est GFR (Non-Af Amer) (> 60) BUN/Creatinine Ratio (6-26) Glucose (70-99) mg/dL POC Glucose 120 H 248 H 175 H (58-89) Calculated Osmolality (280-300) Lactic Acid (0.5-2.2) mmol/L Calcium (8.6-10.8) mg/dL Ionized Calcium (1.15-1.35) mmol/L Phosphorus (2.3-4.7) mg/dL Magnesium (1.6-2.6) mg/dL Total Bilirubin (0.2-1.2) mg/dL Direct Bilirubin (0.0-0.5) mg/dL Indirect Bilirubin (0.0-1.2) mg/dL AST (5-34) Units/L ALT (0-55) Units/L Alkaline Phosphatase (38-126) Units/L Creatine Kinase (29-168) Units/L Troponin I (0-0.03) ng/mL Serum Total Protein (6.0-8.3) g/dL Albumin (3.5-5.0) g/dL Globulin (2.4-3.5) g/dL Albumin/Globulin Ratio (1.1-2.2) Triglycerides (< 150) mg/dL Lipase (8-78) Units/L TSH (0.350-4.840) mcIU/mL Free T4 (0.70-1.48) ng/dl Free T3 (1.71-3.71) pg/mL Urine Color (Yellow) Urine Clarity (Clear) Urine pH (5.0-8.0) pH Units Ur Specific Dana (1.010-1.025) Urine Protein (Neg-Trace) mg/dL Urine Glucose (UA) (Normal) mg/dL Urine Ketones (Negative) mg/dL Urine Blood (Negative) Urine Nitrite (Negative) Urine Bilirubin (Negative) Urine Urobilinogen (Normal) mg/dL Ur Leukocyte Esterase (Negative) Urine Microscopic RBC (0-3) per hpf Urine Microscopic WBC (0-3) per hpf Ur Squamous Epith Cells (None-Few) per lpf Urine Bacteria (None-Few) per hpf Hyaline Casts (None-Few) per lpf Chlamy pneumoniae PCR (Not Detect) Adenovirus (PCR) (Not Detect) B. pertussis DNA (PCR) (Not Detect) Coronavirus OC43 (PCR) (Not Detect) Coronavirus HKU1 (PCR) (Not Detect) Coronavirus 229E (PCR) (Not Detect) Coronavirus NL63 (PCR) (Not Detect) Human Metapneumovirus (Not Detect) Influenza A (H1) PCR (Not Detect) Influ A (H1N1/09) PCR (Not Detect) Influenza A (H3) PCR (Not Detect) Influenza A Untype (PCR) (Not Detect) Influenza Type B (PCR) (Not Detect) M.pneumoniae DNA (PCR) (Not Detect) Parainfluenza 1 (PCR) (Not Detect) Parainfluenza 2 (PCR) (Not Detect) Parainfluenza 3 (PCR) (Not Detect) Parainfluenza 4 (PCR) (Not Detect) RSV (PCR) (Not Detect) Entero/Rhino (PCR) (Not Detect) 11/19/16 11/19/1617 Range/Units 05:34 05:55 05:55 WBC 9.3 (4.3-11.1) K/mcL RBC 4.85 (3.82-4.97) M/mcL Hgb 13.7 (11.5-15.4) g/dL Hct 41.9 (35.3-44.9) % MCV 86.4 (83.0-100.0) fL MCH 28.2 (28.0-33.3) pg MCHC 32.7 (31.6-35.5) g/dL RDW 15.3 H (11.5-14.5) % Plt Count 127 L (140-400) K/mcL MPV 11.8 (9.4-12.4) fL Immature Gran % 0.5 (0-4) % Seg Neutrophils % 80.3 % Band Neutrophils % (0-4) % Lymphocytes % 9.4 % Monocytes % 8.3 % Eosinophils % 1.4 % Basophils % 0.1 % Neutrophils # 7.4 (1.6-8.9) K/mcL Lymphocytes # 0.9 (0.6-4.6) K/mcL Monocytes # 0.8 (0.0-1.3) K/mcL Eosinophils # 0.1 (0.0-0.6) K/mcL Basophils # 0.0 (0.0-0.2) K/mcL Nucleated RBCs/100 WBC (0) /100 WBC Hypersegmented Neuts (Not Present) Toxic Granulation (Not Present) Platelet Estimate (Normal) Large Platelets (Not Present) APTT (26.0-36.0) Seconds ABG pH (7.32-7.45) pH Units ABG pCO2 (35-45) mmHg ABG pO2 (85-104) mmHg ABG HCO3 (21-27) mEQ/L ABG Total CO2 (20-26) mEq/L ABG O2 Saturation (95-98) % ABG Base Excess (-2.0 to 3.0) mEq/L Respiration Rate Blood Gas Modality Inspired O2 % Tidal Volume cc PEEP cm H2O Sodium 141 (136-145) mEq/L Potassium 3.3 L (3.5-4.5) mEq/L Chloride 100 (98-109) mEq/L Carbon Dioxide 30 H (19-29) mEq/L BUN 113 H (7-20) mg/dL Creatinine 2.16 H (0.57-1.11) mg/dL Est GFR ( Amer) 28 L (> 60) Est GFR (Non-Af Amer) 23 L (> 60) BUN/Creatinine Ratio 52 H (6-26) Glucose 121 H (70-99) mg/dL POC Glucose 105 H (58-89) Calculated Osmolality 329 H (280-300) Lactic Acid (0.5-2.2) mmol/L Calcium 8.5 L (8.6-10.8) mg/dL Ionized Calcium (1.15-1.35) mmol/L Phosphorus (2.3-4.7) mg/dL Magnesium (1.6-2.6) mg/dL Total Bilirubin 1.3 H D (0.2-1.2) mg/dL Direct Bilirubin (0.0-0.5) mg/dL Indirect Bilirubin (0.0-1.2) mg/dL AST 21 (5-34) Units/L ALT 40 (0-55) Units/L Alkaline Phosphatase 53 (38-126) Units/L Creatine Kinase (29-168) Units/L Troponin I (0-0.03) ng/mL Serum Total Protein 5.6 L (6.0-8.3) g/dL Albumin 2.6 L (3.5-5.0) g/dL Globulin 3.0 (2.4-3.5) g/dL Albumin/Globulin Ratio 0.9 L (1.1-2.2) Triglycerides (< 150) mg/dL Lipase (8-78) Units/L TSH (0.350-4.840) mcIU/mL Free T4 (0.70-1.48) ng/dl Free T3 (1.71-3.71) pg/mL Urine Color (Yellow) Urine Clarity (Clear) Urine pH (5.0-8.0) pH Units Ur Specific Dana (1.010-1.025) Urine Protein (Neg-Trace) mg/dL Urine Glucose (UA) (Normal) mg/dL Urine Ketones (Negative) mg/dL Urine Blood (Negative) Urine Nitrite (Negative) Urine Bilirubin (Negative) Urine Urobilinogen (Normal) mg/dL Ur Leukocyte Esterase (Negative) Urine Microscopic RBC (0-3) per hpf Urine Microscopic WBC (0-3) per hpf Ur Squamous Epith Cells (None-Few) per lpf Urine Bacteria (None-Few) per hpf Hyaline Casts (None-Few) per lpf Chlamy pneumoniae PCR (Not Detect) Adenovirus (PCR) (Not Detect) B. pertussis DNA (PCR) (Not Detect) Coronavirus OC43 (PCR) (Not Detect) Coronavirus HKU1 (PCR) (Not Detect) Coronavirus 229E (PCR) (Not Detect) Coronavirus NL63 (PCR) (Not Detect) Human Metapneumovirus (Not Detect) Influenza A (H1) PCR (Not Detect) Influ A (H1N1/09) PCR (Not Detect) Influenza A (H3) PCR (Not Detect) Influenza A Untype (PCR) (Not Detect) Influenza Type B (PCR) (Not Detect) M.pneumoniae DNA (PCR) (Not Detect) Parainfluenza 1 (PCR) (Not Detect) Parainfluenza 2 (PCR) (Not Detect) Parainfluenza 3 (PCR) (Not Detect) Parainfluenza 4 (PCR) (Not Detect) RSV (PCR) (Not Detect) Entero/Rhino (PCR) (Not Detect) 11/19/16 11/19/16 11/19/16 Range/Units 11:13 19:38 23:28 WBC (4.3-11.1) K/mcL RBC (3.82-4.97) M/mcL Hgb (11.5-15.4) g/dL Hct (35.3-44.9) % MCV (83.0-100.0) fL MCH (28.0-33.3) pg MCHC (31.6-35.5) g/dL RDW (11.5-14.5) % Plt Count (140-400) K/mcL MPV (9.4-12.4) fL Immature Gran % (0-4) % Seg Neutrophils % % Band Neutrophils % (0-4) % Lymphocytes % % Monocytes % % Eosinophils % % Basophils % % Neutrophils # (1.6-8.9) K/mcL Lymphocytes # (0.6-4.6) K/mcL Monocytes # (0.0-1.3) K/mcL Eosinophils # (0.0-0.6) K/mcL Basophils # (0.0-0.2) K/mcL Nucleated RBCs/100 WBC (0) /100 WBC Hypersegmented Neuts (Not Present) Toxic Granulation (Not Present) Platelet Estimate (Normal) Large Platelets (Not Present) APTT (26.0-36.0) Seconds ABG pH (7.32-7.45) pH Units ABG pCO2 (35-45) mmHg ABG pO2 (85-104) mmHg ABG HCO3 (21-27) mEQ/L ABG Total CO2 (20-26) mEq/L ABG O2 Saturation (95-98) % ABG Base Excess (-2.0 to 3.0) mEq/L Respiration Rate Blood Gas Modality Inspired O2 % Tidal Volume cc PEEP cm H2O Sodium (136-145) mEq/L Potassium (3.5-4.5) mEq/L Chloride (98-109) mEq/L Carbon Dioxide (19-29) mEq/L BUN (7-20) mg/dL Creatinine (0.57-1.11) mg/dL Est GFR ( Amer) (> 60) Est GFR (Non-Af Amer) (> 60) BUN/Creatinine Ratio (6-26) Glucose (70-99) mg/dL POC Glucose 236 H 208 H 118 H (58-89) Calculated Osmolality (280-300) Lactic Acid (0.5-2.2) mmol/L Calcium (8.6-10.8) mg/dL Ionized Calcium (1.15-1.35) mmol/L Phosphorus (2.3-4.7) mg/dL Magnesium (1.6-2.6) mg/dL Total Bilirubin (0.2-1.2) mg/dL Direct Bilirubin (0.0-0.5) mg/dL Indirect Bilirubin (0.0-1.2) mg/dL AST (5-34) Units/L ALT (0-55) Units/L Alkaline Phosphatase (38-126) Units/L Creatine Kinase (29-168) Units/L Troponin I (0-0.03) ng/mL Serum Total Protein (6.0-8.3) g/dL Albumin (3.5-5.0) g/dL Globulin (2.4-3.5) g/dL Albumin/Globulin Ratio (1.1-2.2) Triglycerides (< 150) mg/dL Lipase (8-78) Units/L TSH (0.350-4.840) mcIU/mL Free T4 (0.70-1.48) ng/dl Free T3 (1.71-3.71) pg/mL Urine Color (Yellow) Urine Clarity (Clear) Urine pH (5.0-8.0) pH Units Ur Specific Dana (1.010-1.025) Urine Protein (Neg-Trace) mg/dL Urine Glucose (UA) (Normal) mg/dL Urine Ketones (Negative) mg/dL Urine Blood (Negative) Urine Nitrite (Negative) Urine Bilirubin (Negative) Urine Urobilinogen (Normal) mg/dL Ur Leukocyte Esterase (Negative) Urine Microscopic RBC (0-3) per hpf Urine Microscopic WBC (0-3) per hpf Ur Squamous Epith Cells (None-Few) per lpf Urine Bacteria (None-Few) per hpf Hyaline Casts (None-Few) per lpf Chlamy pneumoniae PCR (Not Detect) Adenovirus (PCR) (Not Detect) B. pertussis DNA (PCR) (Not Detect) Coronavirus OC43 (PCR) (Not Detect) Coronavirus HKU1 (PCR) (Not Detect) Coronavirus 229E (PCR) (Not Detect) Coronavirus NL63 (PCR) (Not Detect) Human Metapneumovirus (Not Detect) Influenza A (H1) PCR (Not Detect) Influ A (H1N1/09) PCR (Not Detect) Influenza A (H3) PCR (Not Detect) Influenza A Untype (PCR) (Not Detect) Influenza Type B (PCR) (Not Detect) M.pneumoniae DNA (PCR) (Not Detect) Parainfluenza 1 (PCR) (Not Detect) Parainfluenza 2 (PCR) (Not Detect) Parainfluenza 3 (PCR) (Not Detect) Parainfluenza 4 (PCR) (Not Detect) RSV (PCR) (Not Detect) Entero/Rhino (PCR) (Not Detect) 11/20/16 11/20/16 11/20/16 Range/Units 04:13 04:13 08:36 WBC 7.2 (4.3-11.1) K/mcL RBC 4.77 (3.82-4.97) M/mcL Hgb 13.6 (11.5-15.4) g/dL Hct 41.7 (35.3-44.9) % MCV 87.4 (83.0-100.0) fL MCH 28.5 (28.0-33.3) pg MCHC 32.6 (31.6-35.5) g/dL RDW 15.4 H (11.5-14.5) % Plt Count 120 L (140-400) K/mcL MPV 12.3 (9.4-12.4) fL Immature Gran % 0.8 (0-4) % Seg Neutrophils % 77.6 % Band Neutrophils % (0-4) % Lymphocytes % 11.8 % Monocytes % 7.8 % Eosinophils % 1.9 % Basophils % 0.1 % Neutrophils # 5.6 (1.6-8.9) K/mcL Lymphocytes # 0.9 (0.6-4.6) K/mcL Monocytes # 0.6 (0.0-1.3) K/mcL Eosinophils # 0.1 (0.0-0.6) K/mcL Basophils # 0.0 (0.0-0.2) K/mcL Nucleated RBCs/100 WBC (0) /100 WBC Hypersegmented Neuts (Not Present) Toxic Granulation (Not Present) Platelet Estimate (Normal) Large Platelets (Not Present) APTT (26.0-36.0) Seconds ABG pH (7.32-7.45) pH Units ABG pCO2 (35-45) mmHg ABG pO2 (85-104) mmHg ABG HCO3 (21-27) mEQ/L ABG Total CO2 (20-26) mEq/L ABG O2 Saturation (95-98) % ABG Base Excess (-2.0 to 3.0) mEq/L Respiration Rate Blood Gas Modality Inspired O2 % Tidal Volume cc PEEP cm H2O Sodium 147 H (136-145) mEq/L Potassium 5.0 H D (3.5-4.5) mEq/L Chloride 111 H (98-109) mEq/L Carbon Dioxide 26 (19-29) mEq/L BUN 27 H D (7-20) mg/dL Creatinine 0.77 D (0.57-1.11) mg/dL Est GFR ( Amer) > 60 (> 60) Est GFR (Non-Af Amer) > 60 (> 60) BUN/Creatinine Ratio 35 H (6-26) Glucose 80 (70-99) mg/dL POC Glucose 196 H (58-89) Calculated Osmolality 308 H (280-300) Lactic Acid (0.5-2.2) mmol/L Calcium 8.9 (8.6-10.8) mg/dL Ionized Calcium 1.08 L (1.15-1.35) mmol/L Phosphorus 3.5 (2.3-4.7) mg/dL Magnesium 2.5 (1.6-2.6) mg/dL Total Bilirubin (0.2-1.2) mg/dL Direct Bilirubin (0.0-0.5) mg/dL Indirect Bilirubin (0.0-1.2) mg/dL AST (5-34) Units/L ALT (0-55) Units/L Alkaline Phosphatase (38-126) Units/L Creatine Kinase (29-168) Units/L Troponin I (0-0.03) ng/mL Serum Total Protein (6.0-8.3) g/dL Albumin (3.5-5.0) g/dL Globulin (2.4-3.5) g/dL Albumin/Globulin Ratio (1.1-2.2) Triglycerides (< 150) mg/dL Lipase (8-78) Units/L TSH (0.350-4.840) mcIU/mL Free T4 (0.70-1.48) ng/dl Free T3 (1.71-3.71) pg/mL Urine Color (Yellow) Urine Clarity (Clear) Urine pH (5.0-8.0) pH Units Ur Specific Dana (1.010-1.025) Urine Protein (Neg-Trace) mg/dL Urine Glucose (UA) (Normal) mg/dL Urine Ketones (Negative) mg/dL Urine Blood (Negative) Urine Nitrite (Negative) Urine Bilirubin (Negative) Urine Urobilinogen (Normal) mg/dL Ur Leukocyte Esterase (Negative) Urine Microscopic RBC (0-3) per hpf Urine Microscopic WBC (0-3) per hpf Ur Squamous Epith Cells (None-Few) per lpf Urine Bacteria (None-Few) per hpf Hyaline Casts (None-Few) per lpf Chlamy pneumoniae PCR (Not Detect) Adenovirus (PCR) (Not Detect) B. pertussis DNA (PCR) (Not Detect) Coronavirus OC43 (PCR) (Not Detect) Coronavirus HKU1 (PCR) (Not Detect) Coronavirus 229E (PCR) (Not Detect) Coronavirus NL63 (PCR) (Not Detect) Human Metapneumovirus (Not Detect) Influenza A (H1) PCR (Not Detect) Influ A (H1N1/09) PCR (Not Detect) Influenza A (H3) PCR (Not Detect) Influenza A Untype (PCR) (Not Detect) Influenza Type B (PCR) (Not Detect) M.pneumoniae DNA (PCR) (Not Detect) Parainfluenza 1 (PCR) (Not Detect) Parainfluenza 2 (PCR) (Not Detect) Parainfluenza 3 (PCR) (Not Detect) Parainfluenza 4 (PCR) (Not Detect) RSV (PCR) (Not Detect) Entero/Rhino (PCR) (Not Detect) 11/20/16 11/20/16 11/20/16 Range/Units 11:37 17:02 23:49 WBC (4.3-11.1) K/mcL RBC (3.82-4.97) M/mcL Hgb (11.5-15.4) g/dL Hct (35.3-44.9) % MCV (83.0-100.0) fL MCH (28.0-33.3) pg MCHC (31.6-35.5) g/dL RDW (11.5-14.5) % Plt Count (140-400) K/mcL MPV (9.4-12.4) fL Immature Gran % (0-4) % Seg Neutrophils % % Band Neutrophils % (0-4) % Lymphocytes % % Monocytes % % Eosinophils % % Basophils % % Neutrophils # (1.6-8.9) K/mcL Lymphocytes # (0.6-4.6) K/mcL Monocytes # (0.0-1.3) K/mcL Eosinophils # (0.0-0.6) K/mcL Basophils # (0.0-0.2) K/mcL Nucleated RBCs/100 WBC (0) /100 WBC Hypersegmented Neuts (Not Present) Toxic Granulation (Not Present) Platelet Estimate (Normal) Large Platelets (Not Present) APTT (26.0-36.0) Seconds ABG pH (7.32-7.45) pH Units ABG pCO2 (35-45) mmHg ABG pO2 (85-104) mmHg ABG HCO3 (21-27) mEQ/L ABG Total CO2 (20-26) mEq/L ABG O2 Saturation (95-98) % ABG Base Excess (-2.0 to 3.0) mEq/L Respiration Rate Blood Gas Modality Inspired O2 % Tidal Volume cc PEEP cm H2O Sodium (136-145) mEq/L Potassium (3.5-4.5) mEq/L Chloride (98-109) mEq/L Carbon Dioxide (19-29) mEq/L BUN (7-20) mg/dL Creatinine (0.57-1.11) mg/dL Est GFR ( Amer) (> 60) Est GFR (Non-Af Amer) (> 60) BUN/Creatinine Ratio (6-26) Glucose (70-99) mg/dL POC Glucose 187 H 199 H 150 H (58-89) Calculated Osmolality (280-300) Lactic Acid (0.5-2.2) mmol/L Calcium (8.6-10.8) mg/dL Ionized Calcium (1.15-1.35) mmol/L Phosphorus (2.3-4.7) mg/dL Magnesium (1.6-2.6) mg/dL Total Bilirubin (0.2-1.2) mg/dL Direct Bilirubin (0.0-0.5) mg/dL Indirect Bilirubin (0.0-1.2) mg/dL AST (5-34) Units/L ALT (0-55) Units/L Alkaline Phosphatase (38-126) Units/L Creatine Kinase (29-168) Units/L Troponin I (0-0.03) ng/mL Serum Total Protein (6.0-8.3) g/dL Albumin (3.5-5.0) g/dL Globulin (2.4-3.5) g/dL Albumin/Globulin Ratio (1.1-2.2) Triglycerides (< 150) mg/dL Lipase (8-78) Units/L TSH (0.350-4.840) mcIU/mL Free T4 (0.70-1.48) ng/dl Free T3 (1.71-3.71) pg/mL Urine Color (Yellow) Urine Clarity (Clear) Urine pH (5.0-8.0) pH Units Ur Specific Dana (1.010-1.025) Urine Protein (Neg-Trace) mg/dL Urine Glucose (UA) (Normal) mg/dL Urine Ketones (Negative) mg/dL Urine Blood (Negative) Urine Nitrite (Negative) Urine Bilirubin (Negative) Urine Urobilinogen (Normal) mg/dL Ur Leukocyte Esterase (Negative) Urine Microscopic RBC (0-3) per hpf Urine Microscopic WBC (0-3) per hpf Ur Squamous Epith Cells (None-Few) per lpf Urine Bacteria (None-Few) per hpf Hyaline Casts (None-Few) per lpf Chlamy pneumoniae PCR (Not Detect) Adenovirus (PCR) (Not Detect) B. pertussis DNA (PCR) (Not Detect) Coronavirus OC43 (PCR) (Not Detect) Coronavirus HKU1 (PCR) (Not Detect) Coronavirus 229E (PCR) (Not Detect) Coronavirus NL63 (PCR) (Not Detect) Human Metapneumovirus (Not Detect) Influenza A (H1) PCR (Not Detect) Influ A (H1N1/09) PCR (Not Detect) Influenza A (H3) PCR (Not Detect) Influenza A Untype (PCR) (Not Detect) Influenza Type B (PCR) (Not Detect) M.pneumoniae DNA (PCR) (Not Detect) Parainfluenza 1 (PCR) (Not Detect) Parainfluenza 2 (PCR) (Not Detect) Parainfluenza 3 (PCR) (Not Detect) Parainfluenza 4 (PCR) (Not Detect) RSV (PCR) (Not Detect) Entero/Rhino (PCR) (Not Detect) 11/21/16 11/21/16 11/21/16 Range/Units 04:29 05:49 11:30 WBC (4.3-11.1) K/mcL RBC (3.82-4.97) M/mcL Hgb (11.5-15.4) g/dL Hct (35.3-44.9) % MCV (83.0-100.0) fL MCH (28.0-33.3) pg MCHC (31.6-35.5) g/dL RDW (11.5-14.5) % Plt Count (140-400) K/mcL MPV (9.4-12.4) fL Immature Gran % (0-4) % Seg Neutrophils % % Band Neutrophils % (0-4) % Lymphocytes % % Monocytes % % Eosinophils % % Basophils % % Neutrophils # (1.6-8.9) K/mcL Lymphocytes # (0.6-4.6) K/mcL Monocytes # (0.0-1.3) K/mcL Eosinophils # (0.0-0.6) K/mcL Basophils # (0.0-0.2) K/mcL Nucleated RBCs/100 WBC (0) /100 WBC Hypersegmented Neuts (Not Present) Toxic Granulation (Not Present) Platelet Estimate (Normal) Large Platelets (Not Present) APTT (26.0-36.0) Seconds ABG pH (7.32-7.45) pH Units ABG pCO2 (35-45) mmHg ABG pO2 (85-104) mmHg ABG HCO3 (21-27) mEQ/L ABG Total CO2 (20-26) mEq/L ABG O2 Saturation (95-98) % ABG Base Excess (-2.0 to 3.0) mEq/L Respiration Rate Blood Gas Modality Inspired O2 % Tidal Volume cc PEEP cm H2O Sodium 143 (136-145) mEq/L Potassium 4.6 H (3.5-4.5) mEq/L Chloride 105 (98-109) mEq/L Carbon Dioxide 29 (19-29) mEq/L BUN 70 H D (7-20) mg/dL Creatinine 1.36 H D (0.57-1.11) mg/dL Est GFR ( Amer) 48 L (> 60) Est GFR (Non-Af Amer) 40 L (> 60) BUN/Creatinine Ratio 51 H (6-26) Glucose 95 (70-99) mg/dL POC Glucose 92 H 169 H (58-89) Calculated Osmolality 316 H (280-300) Lactic Acid (0.5-2.2) mmol/L Calcium 8.8 (8.6-10.8) mg/dL Ionized Calcium (1.15-1.35) mmol/L Phosphorus (2.3-4.7) mg/dL Magnesium (1.6-2.6) mg/dL Total Bilirubin (0.2-1.2) mg/dL Direct Bilirubin (0.0-0.5) mg/dL Indirect Bilirubin (0.0-1.2) mg/dL AST (5-34) Units/L ALT (0-55) Units/L Alkaline Phosphatase (38-126) Units/L Creatine Kinase (29-168) Units/L Troponin I (0-0.03) ng/mL Serum Total Protein (6.0-8.3) g/dL Albumin (3.5-5.0) g/dL Globulin (2.4-3.5) g/dL Albumin/Globulin Ratio (1.1-2.2) Triglycerides (< 150) mg/dL Lipase (8-78) Units/L TSH (0.350-4.840) mcIU/mL Free T4 (0.70-1.48) ng/dl Free T3 (1.71-3.71) pg/mL Urine Color (Yellow) Urine Clarity (Clear) Urine pH (5.0-8.0) pH Units Ur Specific Dana (1.010-1.025) Urine Protein (Neg-Trace) mg/dL Urine Glucose (UA) (Normal) mg/dL Urine Ketones (Negative) mg/dL Urine Blood (Negative) Urine Nitrite (Negative) Urine Bilirubin (Negative) Urine Urobilinogen (Normal) mg/dL Ur Leukocyte Esterase (Negative) Urine Microscopic RBC (0-3) per hpf Urine Microscopic WBC (0-3) per hpf Ur Squamous Epith Cells (None-Few) per lpf Urine Bacteria (None-Few) per hpf Hyaline Casts (None-Few) per lpf Chlamy pneumoniae PCR (Not Detect) Adenovirus (PCR) (Not Detect) B. pertussis DNA (PCR) (Not Detect) Coronavirus OC43 (PCR) (Not Detect) Coronavirus HKU1 (PCR) (Not Detect) Coronavirus 229E (PCR) (Not Detect) Coronavirus NL63 (PCR) (Not Detect) Human Metapneumovirus (Not Detect) Influenza A (H1) PCR (Not Detect) Influ A (H1N1/09) PCR (Not Detect) Influenza A (H3) PCR (Not Detect) Influenza A Untype (PCR) (Not Detect) Influenza Type B (PCR) (Not Detect) M.pneumoniae DNA (PCR) (Not Detect) Parainfluenza 1 (PCR) (Not Detect) Parainfluenza 2 (PCR) (Not Detect) Parainfluenza 3 (PCR) (Not Detect) Parainfluenza 4 (PCR) (Not Detect) RSV (PCR) (Not Detect) Entero/Rhino (PCR) (Not Detect) 11/21/16 Range/Units 17:45 WBC (4.3-11.1) K/mcL RBC (3.82-4.97) M/mcL Hgb (11.5-15.4) g/dL Hct (35.3-44.9) % MCV (83.0-100.0) fL MCH (28.0-33.3) pg MCHC (31.6-35.5) g/dL RDW (11.5-14.5) % Plt Count (140-400) K/mcL MPV (9.4-12.4) fL Immature Gran % (0-4) % Seg Neutrophils % % Band Neutrophils % (0-4) % Lymphocytes % % Monocytes % % Eosinophils % % Basophils % % Neutrophils # (1.6-8.9) K/mcL Lymphocytes # (0.6-4.6) K/mcL Monocytes # (0.0-1.3) K/mcL Eosinophils # (0.0-0.6) K/mcL Basophils # (0.0-0.2) K/mcL Nucleated RBCs/100 WBC (0) /100 WBC Hypersegmented Neuts (Not Present) Toxic Granulation (Not Present) Platelet Estimate (Normal) Large Platelets (Not Present) APTT (26.0-36.0) Seconds ABG pH (7.32-7.45) pH Units ABG pCO2 (35-45) mmHg ABG pO2 (85-104) mmHg ABG HCO3 (21-27) mEQ/L ABG Total CO2 (20-26) mEq/L ABG O2 Saturation (95-98) % ABG Base Excess (-2.0 to 3.0) mEq/L Respiration Rate Blood Gas Modality Inspired O2 % Tidal Volume cc PEEP cm H2O Sodium (136-145) mEq/L Potassium (3.5-4.5) mEq/L Chloride (98-109) mEq/L Carbon Dioxide (19-29) mEq/L BUN (7-20) mg/dL Creatinine (0.57-1.11) mg/dL Est GFR ( Amer) (> 60) Est GFR (Non-Af Amer) (> 60) BUN/Creatinine Ratio (6-26) Glucose (70-99) mg/dL POC Glucose 223 H (58-89) Calculated Osmolality (280-300) Lactic Acid (0.5-2.2) mmol/L Calcium (8.6-10.8) mg/dL Ionized Calcium (1.15-1.35) mmol/L Phosphorus (2.3-4.7) mg/dL Magnesium (1.6-2.6) mg/dL Total Bilirubin (0.2-1.2) mg/dL Direct Bilirubin (0.0-0.5) mg/dL Indirect Bilirubin (0.0-1.2) mg/dL AST (5-34) Units/L ALT (0-55) Units/L Alkaline Phosphatase (38-126) Units/L Creatine Kinase (29-168) Units/L Troponin I (0-0.03) ng/mL Serum Total Protein (6.0-8.3) g/dL Albumin (3.5-5.0) g/dL Globulin (2.4-3.5) g/dL Albumin/Globulin Ratio (1.1-2.2) Triglycerides (< 150) mg/dL Lipase (8-78) Units/L TSH (0.350-4.840) mcIU/mL Free T4 (0.70-1.48) ng/dl Free T3 (1.71-3.71) pg/mL Urine Color (Yellow) Urine Clarity (Clear) Urine pH (5.0-8.0) pH Units Ur Specific Dana (1.010-1.025) Urine Protein (Neg-Trace) mg/dL Urine Glucose (UA) (Normal) mg/dL Urine Ketones (Negative) mg/dL Urine Blood (Negative) Urine Nitrite (Negative) Urine Bilirubin (Negative) Urine Urobilinogen (Normal) mg/dL Ur Leukocyte Esterase (Negative) Urine Microscopic RBC (0-3) per hpf Urine Microscopic WBC (0-3) per hpf Ur Squamous Epith Cells (None-Few) per lpf Urine Bacteria (None-Few) per hpf Hyaline Casts (None-Few) per lpf Chlamy pneumoniae PCR (Not Detect) Adenovirus (PCR) (Not Detect) B. pertussis DNA (PCR) (Not Detect) Coronavirus OC43 (PCR) (Not Detect) Coronavirus HKU1 (PCR) (Not Detect) Coronavirus 229E (PCR) (Not Detect) Coronavirus NL63 (PCR) (Not Detect) Human Metapneumovirus (Not Detect) Influenza A (H1) PCR (Not Detect) Influ A (H1N1/09) PCR (Not Detect) Influenza A (H3) PCR (Not Detect) Influenza A Untype (PCR) (Not Detect) Influenza Type B (PCR) (Not Detect) M.pneumoniae DNA (PCR) (Not Detect) Parainfluenza 1 (PCR) (Not Detect) Parainfluenza 2 (PCR) (Not Detect) Parainfluenza 3 (PCR) (Not Detect) Parainfluenza 4 (PCR) (Not Detect) RSV (PCR) (Not Detect) Entero/Rhino (PCR) (Not Detect)
[2016-11-22] MEDS ORDERED: Furosemide 20 MG/2 ML VIAL IVP ONE (12:08)
[2016-11-23] MEDS: *HR* OxyCODONE Immed Rel 5 MG TABLET PO PRN ×4 (03:34→23:55)
[2016-11-23] MEDS: *HR* Heparin 5,000 UNIT/ML VIAL SQ SCH ×2 (03:34→07:46)
[2016-11-23] MEDS: Ipratropium/Albuterol Neb 3 ML IH SCH ×6 (03:37→23:59)
[2016-11-23 04:35] LABS: Calcium 8.8 mg/dL (8.6-10.8); Potassium 3.8 mEq/L (3.5-4.5)
[2016-11-23] MEDS: dilTIAZem HCl 60 MG TABLET PO SCH ×2 (05:24→12:12)
[2016-11-23] MEDS: Budesonide/Formoterol 160/4.5 MDI IH SCH ×2 (07:28→20:39)
[2016-11-23] MEDS: Aspirin 81 MG TAB.CHEW GTUBE SCH (07:47)
[2016-11-23] MEDS: Sennosides/Docusate Sodium TABLET PO SCH ×2 (07:47→20:11)
[2016-11-23] MEDS: Nicotine 21 MG PATCH.TD24 TD SCH (07:47)
[2016-11-23] MEDS: predniSONE 20 MG TABLET PO SCH (07:47)
[2016-11-23] MEDS: Insulin LISPRO 300 UNITS/3 ML VIAL SQ SCH ×4 (07:49→20:12)
--- NOTE | 2016-11-23 09:03 | Palliative Progress Note ---
Date of Encounter: 11/23/16 Time of Encounter: 08:50 - Assessment and plan (1) Pain Current Visit: Yes Status: Acute Assessment and plan: The patient reports pain medication has been effective, however it seems to wear off too soon medications are written every 6 hours, I will decrease the dosing interval to every 3 hours. No dose change continue to watch. (2) Dyspnea Current Visit: No Status: Acute Assessment and plan: The patient continues to improve, doing well on oxygen. Will be going out for rehabilitation as soon as insurance is approved. Qualifiers: Dyspnea type: shortness of breath Qualified Code(s): R06.02 - Shortness of breath (3) Acute exacerbation of chronic obstructive pulmonary disease (COPD) Current Visit: Yes Status: Acute Assessment and plan: Markedly improved Will be going out for rehabilitation as soon as insurance is approved (4) Acute respiratory failure with hypercapnia Current Visit: Yes Status: Resolved Assessment and plan: Will be going out for rehabilitation as soon as insurance is approved (5) Breast cancer Current Visit: No Status: Acute Assessment and plan: plan to restart care when she is able. Dr. Mckenna from radiation oncology is aware of her progress and continue therapy when the patient is able. Qualifiers: Breast location: upper outer quadrant of breast Laterality: right (6) Goals of care, counseling/discussion Current Visit: No Status: Acute Assessment and plan: DNRCCA, patient also requests DNI status. She wishes to be treated aggressively for her illness but not to be reintubated. Will be going to therapy after insurance is approved. - Time Spent With Patient Total time spent is greater than 50% in coordination of care (as documented) at patient's floor/unit and/or counseling patient: - Subjective Interval history: The patient reports continuing to breathe better. Strength is returning however slowly. The patient reports that she is eating better, and she is having bowel movements. (The bowel movements have been recorded). The patient reports pain in her right arm which is relieved by her oxycodone, however it seems to her that it wears off too soon. As no other complaints of it this time. No nausea no vomiting or pain elsewhere. - Constitutional Vitals: Abnormal lab results RDW 15.4 % (11.5-14.5) H 11/20/16 04:13 Plt Count 120 K/mcL (140-400) L 11/20/16 04:13 Nucleated RBCs/100 WBC 0.2 /100 WBC (0) H 11/11/16 03:00 Hypersegmented Neuts Present (Not Present) A 11/14/16 03:15 Toxic Granulation Present (Not Present) A 11/14/16 03:15 Large Platelets Present (Not Present) A 11/16/16 03:25 Immature Plt Fraction 6.9 % (1.1-6.1) H 11/06/16 17:19 PT 13.9 Seconds (9.4-12.1) H 11/06/16 17:19 APTT 72.0 Seconds (26.0-36.0) H 11/10/16 02:00 D-Dimer 3921 ng/mLFEU (0-500) H 11/06/16 17:19 ABG pH 7.28 pH Units (7.32-7.45) L 11/18/16 04:08 ABG pCO2 83 mmHg (35-45) H* 11/18/16 04:08 ABG pO2 77 mmHg (85-104) L 11/18/16 04:08 ABG HCO3 39.0 mEQ/L (21-27) H 11/18/16 04:08 ABG Total CO2 41.5 mEq/L (20-26) H 11/18/16 04:08 ABG O2 Saturation 93 % (95-98) L 11/18/16 04:08 ABG Base Excess 8.9 mEq/L (-2.0 to 3.0) H 11/18/16 04:08 BUN 43 mg/dL (7-20) H D 11/23/16 04:15 Creatinine 1.28 mg/dL (0.57-1.11) H 11/23/16 04:15 Est GFR ( Amer) 52 (> 60) L 11/23/16 04:15 Est GFR (Non-Af Amer) 43 (> 60) L 11/23/16 04:15 BUN/Creatinine Ratio 34 (6-26) H 11/23/16 04:15 Glucose 109 mg/dL (70-99) H 11/23/16 04:15 POC Glucose 159 (58-89) H 11/22/16 20:45 Ionized Calcium 1.08 mmol/L (1.15-1.35) L 11/20/16 04:13 Total Bilirubin 1.3 mg/dL (0.2-1.2) H D 11/19/16 05:55 Creatine Kinase 253 Units/L (29-168) H 11/10/16 07:25 Troponin I 0.17 ng/mL (0-0.03) H* 11/13/16 04:16 B-Natriuretic Peptide 2717 pg/mL (0-100) H 11/06/16 17:19 Serum Total Protein 5.6 g/dL (6.0-8.3) L 11/19/16 05:55 Albumin 2.6 g/dL (3.5-5.0) L 11/19/16 05:55 Albumin/Globulin Ratio 0.9 (1.1-2.2) L 11/19/16 05:55 Triglycerides 153 mg/dL (< 150) H 11/10/16 07:25 Lipase 132 Units/L (8-78) H 11/10/16 07:25 General appearance: Present: no acute distress - Head Head exam: Present: atraumatic, normal inspection - Eye Eye exam: Present: normal appearance - ENT ENT exam: Present: mucous membranes moist, normal exam - Respiratory Respiratory exam: Present: decreased breath sounds, prolonged expiratory phase, wheezes - Cardiovascular Cardiovascular exam: Present: RRR - GI/Abdominal GI/Abdominal exam: Present: normal bowel sounds, soft. Absent: tenderness - Extremities Exam Extremities exam: Present: pedal edema. Absent: normal inspection, tenderness - Neurological Exam Neurological exam: Present: alert, oriented X3 (Smiling today) - Psychiatric Psychiatric exam: Present: normal affect, normal mood. Absent: agitated, anxious - Skin Skin exam: Present: dry, warm Palliative Quality Palliative Quality: Screen for Code Status: Yes, Screen for Goals of Care: Yes, Screen for Pain: Yes, If Pain Regimen Started, Initiate Bowel Regimen: Yes, Screen for Nausea/Vomitting: Yes Code Status: 11/07/16 04:31 CODE [Resuscitation Status: Active] [RES] Routine Comment: Resuscitation Status: DNR-Comfort Care-Arrest CODE [Resuscitation Status: Active] [RES] Routine Comment: Resuscitation Status: Full Code CODE [Resuscitation Status: Active] [RES] Routine Comment: Resuscitation Status: [id number] - Labs CBC & Chem 7: 11/20/16 04:13 11/23/16 04:15 Labs: Laboratory Results - last 24 hr 11/21/16 11/22/16 11/22/16 22:54 05:41 11:03 Sodium Potassium Chloride Carbon Dioxide BUN Creatinine Est GFR ( Amer) Est GFR (Non-Af Amer) BUN/Creatinine Ratio Glucose POC Glucose 182 H 130 H 140 H Calculated Osmolality Calcium 11/22/16 11/22/16 11/23/16 15:46 20:45 04:15 Sodium 138 Potassium 3.8 Chloride 102 Carbon Dioxide 27 BUN 43 H D Creatinine 1.28 H Est GFR ( Amer) 52 L Est GFR (Non-Af Amer) 43 L BUN/Creatinine Ratio 34 H Glucose 109 H POC Glucose 227 H 159 H Calculated Osmolality 297 Calcium 8.8 - ABG Interpretation ABG results: ABG ABG pH 7.28 pH Units (7.32-7.45) L 11/18/16 04:08 ABG pCO2 83 mmHg (35-45) H* 11/18/16 04:08 ABG pO2 77 mmHg (85-104) L 11/18/16 04:08 ABG O2 Saturation 93 % (95-98) L 11/18/16 04:08 PT/INR, D-dimer PT 13.9 Seconds (9.4-12.1) H 11/06/16 17:19 D-Dimer 3921 ng/mLFEU (0-500) H 11/06/16 17:19 Consult Discharge Plan - Plan Referrals: Kay Palmer [Primary Care Provider] - (patient is going to ECF, no follow up appointment is needed)
--- NOTE | 2016-11-23 14:13 | Discharge Summary ---
Date of Encounter: 11/23/16 Time of Encounter: 14:09 - Discharge Diagnosis (1) Acute exacerbation of chronic obstructive pulmonary disease (COPD) Priority: Primary Status: Acute (2) Acute respiratory failure with hypercapnia Priority: Secondary Status: Resolved (3) Anxiety Priority: Secondary Status: Acute (4) Atrial fibrillation Priority: Secondary Status: Chronic Qualifiers: Atrial fibrillation type: paroxysmal Qualified Code(s): I48.0 - Paroxysmal atrial fibrillation (5) Elevated troponin Priority: Secondary Status: Acute (6) Goals of care, counseling/discussion Priority: Secondary Status: Acute (7) Physical deconditioning Priority: Secondary Status: Acute (8) Cigarette smoker Priority: Secondary Status: Chronic (9) Invasive ductal carcinoma of breast Priority: Secondary Status: Chronic Qualifiers: Laterality: right Qualified Code(s): C50.911 - Malignant neoplasm of unspecified site of right female breast (10) Hypertension Priority: Secondary Status: Chronic Qualifiers: Hypertension type: essential hypertension Qualified Code(s): I10 - Essential (primary) hypertension (11) DVT prophylaxis Priority: Secondary Status: Acute (12) Pedal edema Priority: Secondary Status: Acute - Discharge Medications Prescriptions: ClonazePAM [Klonopin] 0.5 mg PO BID PRN #14 tablet PRN Reason: Anxiety Diltiazem CD (24hr) [Cardizem CD] 240 mg PO DAILY #30 cap.er.24h HydrOXYzine Pamoate [Vistaril] 50 - 100 mg PO QID PRN #60 capsule PRN Reason: Anxiety OxyCODONE Immed Rel [Roxicodone 5 MG] 10 mg PO Q4H PRN #20 tablet PRN Reason: Severe Pain Home Medications: Albuterol Sulfate [Proair Respiclick] 2 puff IH Q6H PRN 09/16/16 [History] Aspirin [Lo-Dose Aspirin EC] 81 mg PO DAILY 09/16/16 [History] Bisoprolol/HCTZ 08/06.25 [Ziac ] 1 each PO DAILY 09/16/16 [History] Losartan Potassium [Cozaar] 50 mg PO DAILY 09/16/16 [History] Simvastatin [Zocor] 20 mg PO HS 09/16/16 [History] Tiotropium [Spiriva] 18 mcg IH 0700 09/16/16 [History] Apixaban [Eliquis] 5 mg PO BID tablet 11/23/16 [Rx] Aspirin 81 mg GTUBE DAILY #0 tab.chew 11/23/16 [Rx] Budesonide/Formoterol 160/4.5 [Symbicort 160/4.5] 2 puff IH BIDR inhaler [Rx] ClonazePAM [Klonopin] 0.5 mg PO BID PRN #14 tablet 11/23/16 [Rx] Diltiazem CD (24hr) [Cardizem CD] 240 mg PO DAILY #30 cap.er.24h 11/23/16 [Rx] Docusate [Colace] 100 mg PO BID PRN #0 capsule 11/23/16 [Rx] HydrOXYzine Pamoate [Vistaril] 50 - 100 mg PO QID PRN #60 capsule 11/23/16 [Rx] Omeprazole [PriLOSEC] 20 mg PO DAILY@0730 capsule.dr 11/23/16 [Rx] OxyCODONE Immed Rel [Roxicodone 5 MG] 10 mg PO Q4H PRN #20 tablet 11/23/16 [Rx] PredniSONE 30 mg PO DAILY tablet 11/23/16 [Rx] Sennosides/Docusate Sodium [Senna Plus] 2 each PO BID tablet 11/23/16 [Rx] Allergies/Adverse Reactions: Allergies prednisone Adverse Reaction (Verified 11/06/16 16:45) See Comments TREMORS Date of admission: 11/06/16 19:28 Primary care physician: Kay Palmer Consults: 11/07/16 04:32 Consult to Pulmonology [CONS] Routine Consulting Provider: [facility] [place] Reason for Consult: acute on chronic respiratory failure, vent management. Call Completed: No 11/07/16 09:04 dietary consult [Consult to Nutrition] [CONS] Routine Comment: Consulting Provider: NUTRITION Reason for Dietary Consult: TF Start and Manage 11/11/16 20:04 Consult to Pulmonology [CONS] Routine Consulting Provider: [facility] [place] Reason for Consult: respiratory failure, COPD, Call Completed: Yes 11/13/16 14:40 Consult to Interpret Exam [CONS] Routine Consulting Provider: Minh Birch Consult to Interpret Exam: Interpret EEG 11/19/16 06:49 Consult to Occupational Therapy [CONS] Routine Comment: reevaluate, develop and implement POC Consult to Physical Therapy [CONS] Routine Comment: reevaluate, develop and implement POC Discharging clinician: Mellissa Anders Anticipated date of discharge: 11/23/16 - Patient Status Disposition: Transfer SNF Condition: Fair Functional capacity at discharge: bed bound Overall status at discharge: patient is not back to baseline - Discharge Instructions Follow Up With: Kay Palmer [Primary Care Provider] - (patient is going to ECF, no follow up appointment is needed) Flower Swanson MD [Partnered Physician] - (1-2 weeks for COPD) Forms: ED Satisfaction Letter Additional Instructions: Make follow-up appointment with cardiology for follow-up atrial fibrillation in 1-2 weeks - Diet and Activity Activity: as per physical therapy Diet: advance to your usual diet, low fat, low cholesterol, low salt diet Hospital course: Ms. Goodman is a 60 year old female with a history of hypertension, invasive ductal carcinoma of the right breast, COPD, CVA was admitted here with acute respiratory failure with hypercapnia, acute exacerbation of COPD and acute kidney injury. She was initially treated with BiPAP but continued to decline so she required intubation and was transferred to the ICU. Pulmonology was consulted and manage the patient in ICU. Patient remained on mechanical ventilation until 11/18/16. She was then extubated. Patient had been made DNR comfort care arrest DNI by palliative care at that time. Patient has improved since extubation. She is on O2 supplementation and on tapering course of steroids. She continues to have right upper extremity pain related to her right breast cancer. Palliative care is managing this and has been treating the patient with pain medications which seem to be helping her with her pain. She has remained extremely weak due to her prolonged course in hospital and as she needed paralytics during the time she was on the ventilator. Physical therapy has evaluated the patient and [facility]. Patient will be discharged from the hospital once placement has been arranged for the patient. She will continue to receive physical therapy in the meantime in the hospital. Patient also presented with acute kidney injury with elevated BUN on presentation. This has improved since then. Patient also developed atrial fibrillation and has been rate controlled with diltiazem. Given her history of stroke, would recommend anticoagulation. She has been started on Eliquis. Her ejection fraction was normal on 2-D echocardiogram done here. She does have a history of hypertension. This patient is clinically improving, she is now stable to be discharged to [facility] for rehabilitation. - Time Spent with Patient Total time spent providing and/or coordinating discharge services: Greater than 30 minutes (45 min) - Constitutional Vitals: Temp Pulse Resp BP Pulse Ox 98.0 F 96 18 120/74 92 L 11/23/16 07:09 11/23/16 11:58 11/23/16 11:58 11/23/16 11:58 11/23/16 11:58 General appearance: Present: cooperative, mild distress, A&O X 3, morbidly obese , answers questions appropriately - Respiratory Respiratory exam: Present: prolonged expiratory phase. Absent: accessory muscle use, rales, rhonchi, wheezes Additional comments: Diminished air entry bilaterally - Cardiovascular Cardiovascular exam: Present: irregular rhythm, +S1, +S2. Absent: diastolic murmur, gallop, rubs, systolic murmur - GI/Abdominal GI/Abdominal exam: Present: normal bowel sounds, soft, no peritoneal signs. Absent: distended, tenderness - Extremities Exam Extremities exam: Present: warm, radial pulses palpable and symetrical. Absent : calf tenderness, cyanotic, pedal edema - Attending Attestation This document has been at least partially created by [employer] voice recognition technology by Dr. Anders. Errors in grammar, wording or other phrases may exist. If errors are found after the documentation is signed, they will be addressed individually in the addendum section of this document when appropriate.
--- NOTE | 2016-11-23 14:34 | Physician Discharge Referral ---
ExtendedCare Referral Info Transfer To: SNF Provider in Charge after Transfer: PCP Institutional Level of Care: Skilled - Diagnosis (1) Acute exacerbation of chronic obstructive pulmonary disease (COPD) Priority: Primary Status: Acute (2) Acute respiratory failure with hypercapnia Priority: Secondary Status: Resolved (3) Anxiety Priority: Secondary Status: Acute (4) Atrial fibrillation Priority: Secondary Status: Chronic (5) Elevated troponin Priority: Secondary Status: Acute (6) Goals of care, counseling/discussion Priority: Secondary Status: Acute (7) Physical deconditioning Priority: Secondary Status: Acute (8) Cigarette smoker Priority: Secondary Status: Chronic (9) Invasive ductal carcinoma of breast Priority: Secondary Status: Chronic (10) Hypertension Priority: Secondary Status: Chronic (11) DVT prophylaxis Priority: Secondary Status: Acute (12) Pedal edema Priority: Secondary Status: Acute Prognosis: Poor Aware of Diagnosis: Patient, Family Aware of Prognosis: Patient, Family - Transfer Medications Prescriptions: ClonazePAM [Klonopin] 0.5 mg PO BID PRN #14 tablet PRN Reason: Anxiety Diltiazem CD (24hr) [Cardizem CD] 240 mg PO DAILY #30 cap.er.24h HydrOXYzine Pamoate [Vistaril] 50 - 100 mg PO QID PRN #60 capsule PRN Reason: Anxiety Home Medications: Albuterol Sulfate [Proair Respiclick] 2 puff IH Q6H PRN 09/16/16 [History] Aspirin [Lo-Dose Aspirin EC] 81 mg PO DAILY 09/16/16 [History] Bisoprolol/HCTZ 10/6.25 [Ziac 10/6.25] 1 each PO DAILY 09/16/16 [History] Losartan Potassium [Cozaar] 50 mg PO DAILY 09/16/16 [History] Simvastatin [Zocor] 20 mg PO HS 09/16/16 [History] Tiotropium [Spiriva] 18 mcg IH 0700 09/16/16 [History] Apixaban [Eliquis] 5 mg PO BID tablet 11/23/16 [Rx] Aspirin 81 mg GTUBE DAILY #0 tab.chew 11/23/16 [Rx] Budesonide/Formoterol 160/4.5 [Symbicort 160/4.5] 2 puff IH BIDR inhaler [Rx] ClonazePAM [Klonopin] 0.5 mg PO BID PRN #14 tablet 11/23/16 [Rx] Diltiazem CD (24hr) [Cardizem CD] 240 mg PO DAILY #30 cap.er.24h 11/23/16 [Rx] Docusate [Colace] 100 mg PO BID PRN #0 capsule 11/23/16 [Rx] HydrOXYzine Pamoate [Vistaril] 50 - 100 mg PO QID PRN #60 capsule 11/23/16 [Rx] Omeprazole [PriLOSEC] 20 mg PO DAILY@0730 capsule.dr 11/23/16 [Rx] PredniSONE 30 mg PO DAILY tablet 11/23/16 [Rx] Sennosides/Docusate Sodium [Senna Plus] 2 each PO BID tablet 11/23/16 [Rx] Allergies/Adverse Reactions: Allergies prednisone Adverse Reaction (Verified 11/06/16 16:45) See Comments TREMORS - Respiratory Orders Oxygen / L per min (keep sats >90%) Smoking Cessation: Smoking cessation has been advised. For more information, call the [place] Tobacco Quit Line at 1-668-BTZM-NOW. - Ancillary Orders May use pressure relief devices daily prn, May consult with Dentist, Hacksaw Inspector, Sports Analyst PRN - Advance Directives Code Status: DNR-Arrest (DNR comfort care arrest DNI) - Mobility Orders Other (per PT) - Rehabiliation Orders Rehab Potential: Fair Rehab Orders: ROM Exercises, Evaluation for Physical Therapy, Evaluation for Occupational Therapy - Diet Orders No Concentrated Sweets, Cardiac CERTIFICATION: I certify that the transfer of the above named patient to an Extended Care Facility is necessary for the continuing treatment of the diagnosis listed. The above information is true and accurate reflection of patient's current condition. Confidential - Redisclosure prohibited without a patient's written consent.
[2016-11-23] MEDS: APIXABAN 5 MG TABLET PO SCH (20:11)
[2016-11-24] MEDS: *HR* OxyCODONE Immed Rel 5 MG TABLET PO PRN ×2 (03:14→11:05)
[2016-11-24] MEDS: hydrOXYzine pamoate 25 MG CAPSULE PO PRN ×2 (04:07→11:05)
[2016-11-24] MEDS: Ipratropium/Albuterol Neb 3 ML IH SCH ×3 (04:44→11:56)
[2016-11-24] MEDS: Insulin LISPRO 300 UNITS/3 ML VIAL SQ SCH ×2 (07:35→11:07)
[2016-11-24] MEDS: Nicotine 21 MG PATCH.TD24 TD SCH (07:59)
[2016-11-24] MEDS: Sennosides/Docusate Sodium TABLET PO SCH (08:00)
[2016-11-24] MEDS: predniSONE 20 MG TABLET PO SCH (08:00)
[2016-11-24] MEDS: Aspirin 81 MG TAB.CHEW GTUBE SCH (08:00)
[2016-11-24] MEDS: APIXABAN 5 MG TABLET PO SCH (08:00)
[2016-11-24] MEDS: Budesonide/Formoterol 160/4.5 MDI IH SCH (08:54)
[2016-11-24] MEDS ORDERED: Diltiazem CD (24hr) 240 MG CAPSULE PO SCH (09:00)
--- NOTE | 2016-11-24 09:39 | Palliative Progress Note ---
Date of Encounter: 11/24/16 Time of Encounter: 09:05 - Assessment and plan (1) Pain Current Visit: Yes Status: Acute Assessment and plan: The patient reports pain medication has been effective for change in interval patient is happy with her pain medication currently. (2) Dyspnea Current Visit: No Status: Acute Assessment and plan: The patient continues to improve, doing well on oxygen. Will be going out for rehabilitation as soon as insurance is approved. Continue to wait on insurance approval Qualifiers: Dyspnea type: shortness of breath Qualified Code(s): R06.02 - Shortness of breath (3) Acute exacerbation of chronic obstructive pulmonary disease (COPD) Current Visit: Yes Status: Acute Assessment and plan: Markedly improved Will be going out for rehabilitation as soon as insurance is approved Continuing to wait on insurance approval (4) Acute respiratory failure with hypercapnia Current Visit: Yes Status: Resolved Assessment and plan: Will be going out for rehabilitation as soon as insurance is approved Continuing to wait on insurance approval (5) Breast cancer Current Visit: No Status: Acute Assessment and plan: plan to restart care when she is able. Dr. Mckenna from radiation oncology is aware of her progress and continue therapy when the patient is able. Qualifiers: Breast location: upper outer quadrant of breast Laterality: right (6) Goals of care, counseling/discussion Current Visit: No Status: Acute Assessment and plan: DNRCCA, patient also requests DNI status. She wishes to be treated aggressively for her illness but not to be reintubated. Will be going to therapy after insurance is approved. She also has right arm weakness that has been noted previously, however is marked markedly worse now. This is probably secondary to some anoxia that she suffered while she was adding difficulties on the ventilator. Was an EEG done that did show some slowing. She is going to be renewing therapy. I expect that this will help her right arm. - Time Spent With Patient Total time spent is greater than 50% in coordination of care (as documented) at patient's floor/unit and/or counseling patient: - Subjective Interval history: The patient reports continuing to breathe better. Strength is returning however slowly. The patient reports that she is eating better, and she is having bowel movements. (The bowel movements have been recorded). The patient also reports that she is definitely weaker in her right arm and she has been in the past. 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 - Constitutional Vitals: Abnormal lab results RDW 15.4 % (11.5-14.5) H 11/20/16 04:13 Plt Count 120 K/mcL (140-400) L 11/20/16 04:13 Nucleated RBCs/100 WBC 0.2 /100 WBC (0) H 11/11/16 03:00 Hypersegmented Neuts Present (Not Present) A 11/14/16 03:15 Toxic Granulation Present (Not Present) A 11/14/16 03:15 Large Platelets Present (Not Present) A 11/16/16 03:25 Immature Plt Fraction 6.9 % (1.1-6.1) H 11/06/16 17:19 PT 13.9 Seconds (9.4-12.1) H 11/06/16 17:19 APTT 72.0 Seconds (26.0-36.0) H 11/10/16 02:00 D-Dimer 3921 ng/mLFEU (0-500) H 11/06/16 17:19 ABG pH 7.28 pH Units (7.32-7.45) L 11/18/16 04:08 ABG pCO2 83 mmHg (35-45) H* 11/18/16 04:08 ABG pO2 77 mmHg (85-104) L 11/18/16 04:08 ABG HCO3 39.0 mEQ/L (21-27) H 11/18/16 04:08 ABG Total CO2 41.5 mEq/L (20-26) H 11/18/16 04:08 ABG O2 Saturation 93 % (95-98) L 11/18/16 04:08 ABG Base Excess 8.9 mEq/L (-2.0 to 3.0) H 11/18/16 04:08 BUN 43 mg/dL (7-20) H D 11/23/16 04:15 Creatinine 1.28 mg/dL (0.57-1.11) H 11/23/16 04:15 Est GFR ( Amer) 52 (> 60) L 11/23/16 04:15 Est GFR (Non-Af Amer) 43 (> 60) L 11/23/16 04:15 BUN/Creatinine Ratio 34 (6-26) H 11/23/16 04:15 Glucose 109 mg/dL (70-99) H 11/23/16 04:15 POC Glucose 212 (58-89) H 11/23/16 19:36 Ionized Calcium 1.08 mmol/L (1.15-1.35) L 11/20/16 04:13 Total Bilirubin 1.3 mg/dL (0.2-1.2) H D 11/19/16 05:55 Creatine Kinase 253 Units/L (29-168) H 11/10/16 07:25 Troponin I 0.17 ng/mL (0-0.03) H* 11/13/16 04:16 B-Natriuretic Peptide 2717 pg/mL (0-100) H 11/06/16 17:19 Serum Total Protein 5.6 g/dL (6.0-8.3) L 11/19/16 05:55 Albumin 2.6 g/dL (3.5-5.0) L 11/19/16 05:55 Albumin/Globulin Ratio 0.9 (1.1-2.2) L 11/19/16 05:55 Triglycerides 153 mg/dL (< 150) H 11/10/16 07:25 Lipase 132 Units/L (8-78) H 11/10/16 07:25 General appearance: Present: no acute distress - Head Head exam: Present: atraumatic, normal inspection - Eye Eye exam: Present: normal appearance - ENT ENT exam: Present: mucous membranes moist - Respiratory Respiratory exam: Present: decreased breath sounds (But clearing) - Cardiovascular Cardiovascular exam: Present: RRR - GI/Abdominal GI/Abdominal exam: Present: normal bowel sounds, soft. Absent: tenderness - Extremities Exam Extremities exam: Present: normal inspection, pedal edema (Agents right arm is definitely weaker than the left.). Absent: tenderness - Neurological Exam Neurological exam: Present: alert, motor sensory deficit (Right arm), oriented X3 - Psychiatric Psychiatric exam: Present: normal affect, normal mood. Absent: agitated, anxious - Skin Skin exam: Present: dry, warm Palliative Quality Palliative Quality: Screen for Code Status: Yes, Screen for Goals of Care: Yes, Screen for Pain: Yes, If Pain Regimen Started, Initiate Bowel Regimen: Yes, Screen for Nausea/Vomitting: Yes Code Status: 11/07/16 04:31 CODE [Resuscitation Status: Active] [RES] Routine Comment: Resuscitation Status: DNR-Comfort Care-Arrest CODE [Resuscitation Status: Active] [RES] Routine Comment: Resuscitation Status: Full Code CODE [Resuscitation Status: Active] [RES] Routine Comment: Resuscitation Status: [id number] - Labs CBC & Chem 7: 11/20/16 04:13 11/23/16 04:15 Labs: Laboratory Results - last 24 hr 11/23/16 11/23/16 11/23/16 07:11 12:00 16:10 POC Glucose 101 H 253 H 224 H 11/23/16 19:36 POC Glucose 212 H - ABG Interpretation ABG results: ABG ABG pH 7.28 pH Units (7.32-7.45) L 11/18/16 04:08 ABG pCO2 83 mmHg (35-45) H* 11/18/16 04:08 ABG pO2 77 mmHg (85-104) L 11/18/16 04:08 ABG O2 Saturation 93 % (95-98) L 11/18/16 04:08 PT/INR, D-dimer PT 13.9 Seconds (9.4-12.1) H 11/06/16 17:19 D-Dimer 3921 ng/mLFEU (0-500) H 11/06/16 17:19 Consult Discharge Plan - Plan Additional Instructions: Make follow-up appointment with cardiology for follow-up atrial fibrillation in 1-2 weeks Referrals: Flower Swanson MD [Partnered Physician] - (1-2 weeks for COPD) Kay Palmer [Primary Care Provider] - (patient is going to [facility], no follow up appointment is needed) Prescriptions: ClonazePAM [Klonopin] 0.5 mg PO BID PRN #14 tablet PRN Reason: Anxiety Diltiazem CD (24hr) [Cardizem CD] 240 mg PO DAILY #30 cap.er.24h HydrOXYzine Pamoate [Vistaril] 50 - 100 mg PO QID PRN #60 capsule PRN Reason: Anxiety OxyCODONE Immed Rel [Roxicodone 5 MG] 10 mg PO Q4H PRN #20 tablet PRN Reason: Severe Pain
[2016-11-24 11:17] VITALS: BP 167/123
== END 2016-11-24 13:55 | DRG 207 ==
LOC: EMEROO 16:33 → 2NNU 16:33 → SUATTDRO 19:28 → 2NNU 19:31 → ICNU 11-07 02:33 → 2NNU 11-20 08:36
PROVIDERS: ADMIT Internal Medicine; ATTEND Family Medicine

== ENCOUNTER 2017-04-21 19:23 | Inpatient (IN) ==
[2017-04-21] MEDS ORDERED: methylPREDNISolone 125 MG/2 ML VIAL IVP ONE (19:47)
[2017-04-21] MEDS ORDERED: Ipratropium/Albuterol Neb 3 ML IH ONE (19:47)
--- NOTE | 2017-04-21 20:08 | Emergency Department Note ---
Disposition Clinical Impression: CAP (community acquired pneumonia), Hypoxemia, Acute exacerbation of chronic obstructive airways disease, Hyperkalemia Sepsis Qualifiers: Sepsis type: sepsis due to unspecified organism Qualified Code(s): A41.9 - Sepsis, unspecified organism Disposition: Admitted As Inpatient Condition: Serious Time of Disposition: 21:38 SOB HPI - General Chief Complaint: ED Shortness of Breath/Dyspnea Stated Complaint: kendell dizziness blurred vision Time Seen by Provider: 04/21/17 19:40 Source: family Limitations: no limitations Nursing Notes Reviewed: Yes Vital Signs Reviewed: Yes - History of Present Illness 61-year-old female history of COPD, hypertension, hyperlipidemia, morbid obesity , who presents with shortness of breath and intermittent diffuse confusion for the last week, she has been getting more and more lightheaded as well. Patient denies any sensation of vertigo, however states that she feels lightheaded and "dizzy". Patient states that she has a history of COPD and has been admitted to the hospital as recently as this November for acute on chronic respiratory failure. She is not on any home oxygen at this time. Eyes any chest pain or abdominal pain, +fever subjective, denies nausea vomiting or weight loss. The states that she has been gradually worsening with her dizziness, shortness of breath and weakness for the last week patient also endorses a productive cough, with brown sputum for last week. Pt Subjective Complaint: shortness of breath Onset (ago): minute(s) Context: recent illness Severity: none Consistency/Duration: intermittent Improves with: oxygen Worsens with: nothing Known history of: COPD Associated symptoms: Reports: fever, cough, sputum production. Denies: chest pain, pain with inspiration Treatment prior to arrival: oxygen Cough present: Yes Cough Description: Voluntary Cough Frequency: Intermittent Sputum production: Yes Sputum Amount: Scant Sputum Color: Brown - Related Data Home Medications Medication Instructions Recorded Confirmed Aspirin [Lo-Dose Aspirin EC] 81 mg PO DAILY 09/16/16 04/21/17 Losartan Potassium [Cozaar] 50 mg PO DAILY 09/16/16 04/21/17 Simvastatin [Zocor] 20 mg PO HS 09/16/16 04/21/17 Tiotropium [Spiriva] 18 mcg IH 0700 09/16/16 04/21/17 Anastrozole [Arimidex] 1 mg PO DAILY 04/21/17 04/21/17 Calcium Carbonate [Calcium] 600 mg PO BID 04/21/17 04/21/17 Cholecalciferol (D-3) [Vitamin D] 2,000 unit PO DAILY 04/21/17 04/21/17 Diltiazem CD (24hr) [Cardizem CD] 120 mg PO DAILY 04/21/17 04/21/17 Doxycycline Hyclate [Vibramycin] 100 mg PO BID 04/21/17 04/21/17 Previous Rx's Medication Instructions Recorded Apixaban [Eliquis] 5 mg PO BID tablet 11/23/16 Budesonide/Formoterol 160/4.5 2 puff IH BIDR inhaler 11/23/16 [Symbicort 160/4.5] Allergies Allergy/AdvReac Type Severity Reaction Status Date / Time prednisone AdvReac See Verified 11/06/16 16:45 Comments All systems ED: reviewed and negative except as stated. Constitutional: Reports: fever, chills ENT ED: Denies: ear pain, throat pain Cardiovascular: Reports: as per HPI. Denies: chest pain Respiratory: Reports: as per HPI, cough, dyspnea, sputum production. Denies: hemoptysis Gastrointestinal: Denies: abdominal pain, nausea, vomiting, diarrhea Neurological: Reports: as per HPI, weakness. Denies: headache, numbness, paresthesias, confusion Past Medical History - Past Medical History Attestation: Yes The following information was validated with the patient. Source: patient Medical history: Reports: cancer, COPD, CVA, hyperlipidemia, hypertension Psychiatric history: Reports: no psych history - Social History Smoking Status: Current every day smoker Alcohol use: Reports: none Drug use: Reports: none Physical Exam Constitutional: Obese elderly female, appears older than stated age, moderately hypoxic 82% on 4 L, tachypneic Neck: normal inspection, neck is supple, trachea midline Resp: Diminished breath sounds bilaterally, with decreased aeration at the bases , no wheezes, +tachypnea. CV: RRR, no m/g/r GI: obese normal inspection, Soft, NTND, BS present Back: normal inspection, no tenderness to palpation Neuro: A&O3, no gross motor or sensory deficits bilaterally MSK: normal inspection, bilateral UE and LE with normal ROM Psych: normal mood, normal affect Skin: No rashes, skin warm, dry, intact - General Limitations: no limitations General appearance: alert, in no apparent distress Course Course Narrative: Patient is a 61-year-old female with COPD, I am concerned about her respiratory status at this time therefore will be admitted to [facility] IV and an ABG to evaluate her oxygenation, I am concerned that we may need to the BiPAP and she looks like she is working hard to breathe, her sats 82% on 4 L nasal cannula. Her EKG shows no ischemic changes, sinus tachycardia, differential includes pneumonia, sepsis, COPD exacerbation, CHF exacerbation - Reevaluation(s) Reevaluation #1: Patient has a mild leukocytosis at 12.3, she has an elevated INR is on Eliquis, acute on chronic renal failure, and mild hyperkalemia worse than baseline, she appears dehydrated, she is clinically volume overloaded, and We do have her on a facemask, at this time, she satting 96% currently she meets criteria for sepsis with community acquired pneumonia, I do not feel that she meets severe sepsis at this time as she is no non-chronic elevations in her lab work, showing acute end organ dysfunction Time: 21:37 Vital Signs Temperature 98.1 F 04/21/17 19:26 Pulse Rate 95 04/21/17 19:26 Respiratory Rate 20 04/21/17 19:26 Blood Pressure 149/87 04/21/17 19:26 O2 Sat by Pulse Oximetry 75 04/21/17 19:26 Temperature 98.1 F 04/21/17 19:26 Pulse Rate 93 04/21/17 21:00 Respiratory Rate 18 04/21/17 21:00 Blood Pressure 139/84 04/21/17 21:00 O2 Sat by Pulse Oximetry 93 04/21/17 21:00 Oxygen Delivery Oxygen Delivery Simple Mask Shortness of Breath/Dyspnea - MDM Narrative Medical decision making narrative: 67-year-old female with sepsis, right lower lobe pneumonia, acute on chronic renal failure, hyperkalemia, admitted to medicine service started on ceftriaxone and Levaquin, stable condition on facemask satting 98% on 4 L. - Differential Diagnosis Likely: congestive heart failure, pulmonary embolism - Medical Records Medical records reviewed: Yes I reviewed the patient's medical records. - Lab Data Lab results reviewed: Yes I reviewed the patient's lab results. Result diagrams: 04/21/17 20:30 04/21/17 20:30 Lab Results 04/21/17 04/21/17 04/21/17 Range/Units 20:02 20:30 20:30 WBC 12.3 H (4.3-11.1) K/mcL RBC 3.85 (3.82-4.97) M/mcL Hgb 11.0 L (11.5-15.4) g/dL Hct 36.8 (35.3-44.9) % MCV 95.6 (83.0-100.0) fL MCH 28.6 (28.0-33.3) pg MCHC 29.9 L (31.6-35.5) g/dL RDW 14.8 H (11.5-14.5) % Plt Count 251 (140-400) K/mcL MPV 10.2 (9.4-12.4) fL Immature Gran % 0.6 (0-4) % Seg Neutrophils % 79.4 % Lymphocytes % 12.8 % Monocytes % 6.0 % Eosinophils % 0.6 % Basophils % 0.6 % Neutrophils # 9.7 H (1.6-8.9) K/mcL Lymphocytes # 1.6 (0.6-4.6) K/mcL Monocytes # 0.7 (0.0-1.3) K/mcL Eosinophils # 0.1 (0.0-0.6) K/mcL Basophils # 0.1 (0.0-0.2) K/mcL Nucleated RBCs/100 WBC 0.4 H (0) /100 WBC PT (9.4-12.1) Seconds INR APTT (26.0-36.0) Seconds ABG pH 7.33 (7.32-7.45) pH Units ABG pCO2 67 H (35-45) mmHg ABG pO2 53 L (85-104) mmHg ABG HCO3 35.3 H (21-27) mEQ/L ABG Total CO2 37.4 H (20-26) mEq/L ABG O2 Saturation 84 L (95-98) % ABG Base Excess 7.5 H (-2.0 to 3.0) mEq/L Liter Flow 5 L/MIN Blood Gas Modality NC Inspired O2 40 % Sodium 138 (136-145) mEq/L Potassium 5.6 H (3.5-4.5) mEq/L Chloride 98 (98-109) mEq/L Carbon Dioxide 30 H (19-29) mEq/L BUN 22 H (7-20) mg/dL Creatinine 2.04 H (0.57-1.11) mg/dL Est GFR ( Amer) 30 L (> 60) Est GFR (Non-Af Amer) 25 L (> 60) BUN/Creatinine Ratio 11 (6-26) Glucose 96 (70-99) mg/dL Calculated Osmolality 289 (280-300) Lactic Acid (0.5-2.2) mmol/L Calcium 9.5 (8.6-10.8) mg/dL Troponin I (0-0.03) ng/mL B-Natriuretic Peptide (0-100) pg/mL 04/21/17 04/21/17 04/21/17 Range/Units 20:30 20:30 20:30 WBC (4.3-11.1) K/mcL RBC (3.82-4.97) M/mcL Hgb (11.5-15.4) g/dL Hct (35.3-44.9) % MCV (83.0-100.0) fL MCH (28.0-33.3) pg MCHC (31.6-35.5) g/dL RDW (11.5-14.5) % Plt Count (140-400) K/mcL MPV (9.4-12.4) fL Immature Gran % (0-4) % Seg Neutrophils % % Lymphocytes % % Monocytes % % Eosinophils % % Basophils % % Neutrophils # (1.6-8.9) K/mcL Lymphocytes # (0.6-4.6) K/mcL Monocytes # (0.0-1.3) K/mcL Eosinophils # (0.0-0.6) K/mcL Basophils # (0.0-0.2) K/mcL Nucleated RBCs/100 WBC (0) /100 WBC PT 18.4 H (9.4-12.1) Seconds INR 1.7 APTT 25.0 L (26.0-36.0) Seconds ABG pH (7.32-7.45) pH Units ABG pCO2 (35-45) mmHg ABG pO2 (85-104) mmHg ABG HCO3 (21-27) mEQ/L ABG Total CO2 (20-26) mEq/L ABG O2 Saturation (95-98) % ABG Base Excess (-2.0 to 3.0) mEq/L Liter Flow L/MIN Blood Gas Modality Inspired O2 % Sodium (136-145) mEq/L Potassium (3.5-4.5) mEq/L Chloride (98-109) mEq/L Carbon Dioxide (19-29) mEq/L BUN (7-20) mg/dL Creatinine (0.57-1.11) mg/dL Est GFR ( Amer) (> 60) Est GFR (Non-Af Amer) (> 60) BUN/Creatinine Ratio (6-26) Glucose (70-99) mg/dL Calculated Osmolality (280-300) Lactic Acid 1.1 (0.5-2.2) mmol/L Calcium (8.6-10.8) mg/dL Troponin I 0.02 (0-0.03) ng/mL B-Natriuretic Peptide (0-100) pg/mL 04/21/17 Range/Units 20:30 WBC (4.3-11.1) K/mcL RBC (3.82-4.97) M/mcL Hgb (11.5-15.4) g/dL Hct (35.3-44.9) % MCV (83.0-100.0) fL MCH (28.0-33.3) pg MCHC (31.6-35.5) g/dL RDW (11.5-14.5) % Plt Count (140-400) K/mcL MPV (9.4-12.4) fL Immature Gran % (0-4) % Seg Neutrophils % % Lymphocytes % % Monocytes % % Eosinophils % % Basophils % % Neutrophils # (1.6-8.9) K/mcL Lymphocytes # (0.6-4.6) K/mcL Monocytes # (0.0-1.3) K/mcL Eosinophils # (0.0-0.6) K/mcL Basophils # (0.0-0.2) K/mcL Nucleated RBCs/100 WBC (0) /100 WBC PT (9.4-12.1) Seconds INR APTT (26.0-36.0) Seconds ABG pH (7.32-7.45) pH Units ABG pCO2 (35-45) mmHg ABG pO2 (85-104) mmHg ABG HCO3 (21-27) mEQ/L ABG Total CO2 (20-26) mEq/L ABG O2 Saturation (95-98) % ABG Base Excess (-2.0 to 3.0) mEq/L Liter Flow L/MIN Blood Gas Modality Inspired O2 % Sodium (136-145) mEq/L Potassium (3.5-4.5) mEq/L Chloride (98-109) mEq/L Carbon Dioxide (19-29) mEq/L BUN (7-20) mg/dL Creatinine (0.57-1.11) mg/dL Est GFR ( Amer) (> 60) Est GFR (Non-Af Amer) (> 60) BUN/Creatinine Ratio (6-26) Glucose (70-99) mg/dL Calculated Osmolality (280-300) Lactic Acid (0.5-2.2) mmol/L Calcium (8.6-10.8) mg/dL Troponin I (0-0.03) ng/mL B-Natriuretic Peptide 193 H (0-100) pg/mL - Radiology Data Radiology results reviewed: Yes I reviewed the patient's radiology results. Chest X-Ray 04/21/17 19:47 IMPRESSION: Cardiomegaly with right pleural effusion and airspace disease, likely pulmonary edema. Pneumonia cannot be excluded. D/ / Joselyn Velasquez Cha, MD / Joselyn Velasquez Cha, MD Interpreting Provider: Joselyn Velasquez Cha, MD - EKG Data EKG attestation: Yes I reviewed and interpreted this EKG. Rate: Reports: tachycardia Rhythm: Reports: NSR (100 bpm MN [address] segment elevations or depressions) Interpretation: Reports: no acute changes Attestation Statement - Attestation Attestation: I, Ar Storey MD, personally evaluated this patient and discussed their management with the resident physician. I reviewed the resident's note and agree with the documented findings, medical decision making, and plan of care. 61-year-old female with history of COPD presents to the emergency department with a complaint of increasing shortness of breath over the past week. She also has had increased productive cough with brown sputum. No fever. No chest pain. He was on home oxygen in the past but it was taken away because her insurance would not cover it. On examination patient is a well-developed obese female in no acute distress but is obviously tachypnea. There is no cyanosis or diaphoresis. She is alert and oriented 3. Chest is nontender to palpation. Breath sounds are decreased bilaterally with a few scattered bilateral late expiratory wheezes. No rales noted. Heart regular rate and rhythm. Abdomen soft and nontender with normal bowel sounds. 1+ pedal edema. At time of my examination patient's oxygen saturation in the low to mid 80s on oxygen at 5 L/m nasal cannula. Labs reviewed. Mild leukocytosis. Hyperkalemia. Chronic renal insufficiency. Chest x-ray shows a right pleural effusion versus pneumonia. The hospitalist, Dr. Mathew, was consulted and accepted admission of the patient.
[2017-04-21 20:12] LABS: ABG Base Excess 7.5 mEq/L (-2.0 to 3.0); ABG HCO3 35.3 mEQ/L (21-27); ABG Oxygen Saturation 84 % (95-98); ABG PCO2 67 mmHg (35-45); ABG PH 7.33 pH Units (7.32-7.45); ABG PO2 53 mmHg (85-104); ABG TCO2 37.4 mEq/L (20-26); Blood Gas FiO2 40 %; Blood Gas Liter Flow 5 L/MIN
[2017-04-21 20:53] LABS: Basophils # 0.1 K/mcL (0.0-0.2); Basophils % 0.6 %; Eosinophils # 0.1 K/mcL (0.0-0.6); Eosinophils % 0.6 %; Hematocrit 36.8 % (35.3-44.9); Immature Granulocytes % 0.6 % (0-4); Lymphocytes # 1.6 K/mcL (0.6-4.6); Lymphocytes % 12.8 %; Mean Corpuscular HGB Conc 29.9 g/dL (31.6-35.5); Mean Corpuscular Hemoglobin 28.6 pg (28.0-33.3); Mean Corpuscular Volume 95.6 fL (83.0-100.0); Mean Platelet Volume 10.2 fL (9.4-12.4); Monocytes # 0.7 K/mcL (0.0-1.3); Neutrophils # 9.7 K/mcL (1.6-8.9); Nucleated Red Blood Cells 0.4 /100 WBC (0); Platelet Count 251 K/mcL (140-400); Red Blood Count 3.85 M/mcL (3.82-4.97); Red Cell Distribution Width 14.8 % (11.5-14.5); Segmented Neutrophils % 79.4 %
[2017-04-21 20:59] LABS: INR 1.7; Prothrombin Time 18.4 Seconds (9.4-12.1)
[2017-04-21 21:06] LABS: Calcium 9.5 mg/dL (8.6-10.8); Potassium 5.6 mEq/L (3.5-4.5)
[2017-04-21] MEDS ORDERED: Levofloxacin 750 MG/150 ML 750 MG/150 ML BAG IVPB ONE (21:35)
--- NOTE | 2017-04-21 22:06 | Internal Med History&Physical ---
<Elio Ford - Last Filed: 04/22/17 00:25> Date of Encounter: 04/22/17 Time of Encounter: 22:00 Assessment and Plan (1) Sepsis Current visit: Yes Status: Acute Assess: Patient presents with WBCs of 12.3, heart rate of 95, and respiratory rate greater than 20 and meets sepsis criteria due to possible pneumonia/unresolved bronchitis diagnosis earlier in the week. Plan: Lactic acid ordered stat Timed lactic acids ordered Bilirubin ordered stat Blood/urine/sputum cultures ordered stat IV ceftriaxone 2,000 mg daily ordered IV Levaquin 750 mg daily ordered Repeat CBC Qualifiers: Sepsis type: sepsis due to unspecified organism Qualified Code(s): A41.9 - Sepsis, unspecified organism (2) Pneumonia Current visit: Yes Status: Acute Assess: Patient presents with possible pneumonia based on CXR of 04/21/17 which shows right pleural effusion where pneumonia cannot be excluded. Patient also presents with WBC of 12.3 during admission as well as sepsis criteria. Plan: Blood/urine/sputum cultures ordered stat IV ceftriaxone 2,000 mg daily ordered IV Levaquin 750 mg daily ordered Repeat CBC NOW Supplemental O2/BiPap ordered for SOB/hypoxia Monitor patient and vital signs Qualifiers: Pneumonia type: due to unspecified organism Laterality: right Lung location: unspecified part of lung Qualified Code(s): J18.9 - Pneumonia, unspecified organism (3) Atrial fibrillation Current visit: Yes Status: Acute Assess: Patient presents with new onset of atrial fibrillation which was diagnosed less than a week ago. Plan: Cardiology consult ordered Continue patient's [facility] Continuous cardiac telemetry ordered Continue patient's [facility] Qualifiers: Atrial fibrillation type: unspecified Qualified Code(s): I48.91 - Unspecified atrial fibrillation (4) Hyperkalemia Current visit: Yes Status: Acute Assess: Patient presents with acute hyperkalemia. Initial blood drawn ED shows patient' s potassium level at 5.6. Patient currently only has one kidney following the removal of right kidney. Plan: Nephrology consult ordered Discontinue Losartan potassium Start Lopressor (5) Acute exacerbation of chronic obstructive pulmonary disease (COPD) Current visit: Yes Status: Acute Assess: This presents with acute exacerbation of chronic obstructive pulmonary disease. She reports she is a former smoker but quit at the time of breast cancer diagnosis. Plan: DuoNebs 3 mL ordered Q4 Supplemental O2 with titration if SPO2 less than 92% Continuous SPO2 monitoring BiPAP ordered on/off his supplemental O2 via mask noneffective Monitor patient and vital signs closely (6) Hypoxia Current visit: Yes Status: Acute Assess: This presents with acute hypoxia due to acute exacerbation of COPD and possible pneumonia. She reports she is a former smoker but quit at the time of breast cancer diagnosis. Plan: DuoNebs 3 mL ordered Q4 Supplemental O2 with titration if SPO2 less than 92% Continuous SPO2 monitoring BiPAP ordered on/off his supplemental O2 via mask noneffective IV antibiotics to be continued Monitor patient and vital signs closely (7) Dyspnea Current visit: Yes Status: Acute Assess: This presents with acute exacerbation of chronic obstructive pulmonary disease. She reports she is a former smoker but quit at the time of breast cancer diagnosis. Plan: DuoNebs 3 mL ordered Q4 Supplemental O2 with titration if SPO2 less than 92% Continuous SPO2 monitoring BiPAP ordered on/off his supplemental O2 via mask noneffective Falls precautions/th-bpeh-dompbg/bed rest with bed side commode with assist status Monitor patient and vital signs closely Qualifiers: Dyspnea type: shortness of breath Qualified Code(s): R06.02 - Shortness of breath (8) Pedal edema Current visit: Yes Status: Acute Assess: Patient presents with 1+ pitting edema bilaterally in lower extremities. Patient unable to take Lasix due to stage IV chronic kidney disease. Plan: Nephrology consult ordered Fluid restriction/renal diet ordered Judicious use of IV fluids Monitor I&O Monitor daily weight (9) Chronic kidney disease Current visit: Yes Status: Chronic Assess: Patient presents with history of chronic kidney disease, stage IV. Patient reports removal of right kidney and only has left kidney remaining. GFR during this admission is 25. Plan: Nephrology consult ordered. Consider diuresis based on nephrology consult. Fluid restriction Monitor I&O/daily weight Qualifiers: Chronic kidney disease stage: stage 4 (severe) Qualified Code(s): N18.4 - Chronic kidney disease, stage 4 (severe) (10) Hyperlipidemia Current visit: Yes Status: Chronic Assess: Patient presents with history of chronic hyperlipidemia. Plan: Lipid panel ordered Hold simvastatin Lipitor ordered Qualifiers: Hyperlipidemia type: pure hypercholesterolemia Qualified Code(s): E78.00 - Pure hypercholesterolemia, unspecified; E78.0 - Pure hypercholesterolemia (11) Hypertension Current visit: Yes Status: Chronic Assess: Patient presents with history of chronic hypertension. Plan: Hold losartan potassium due to patient's current hyperkalemia Start Lopressor 25 mg twice a day Monitor patient and vital signs Qualifiers: Hypertension type: essential hypertension Qualified Code(s): I10 - Essential (primary) hypertension (12) DVT prophylaxis Current visit: Yes Status: Acute Assess: Patient to be placed on DVT prophylaxis due to admission protocol, bed rest status, and new onset of atrial fibrillation. Plan: Continue aspirin therapy Continue [facility] Internal Medicine - H&P: HPI Chief complaint: SOB/Dyspnea Admitted From: Emergency Dept Plans for Post Hospital Care: Home History of present illness: Ms. Goodman is a 61 year old female presents from the ED with chief complaint of extreme shortness of breath and dyspnea which is present for the last week but has become progressively worse. Patient also reports being dizzy and lightheaded but denies syncope or pre-syncope. Patient states she was admitted to the hospital in November 2016 for acute on chronic respiratory failure with similar symptoms. Patient reports she does not use home oxygen at this time. Mrs. Goodman states that her SPO2 at home was in the 50s today before coming to the ED. During examination patient's SPO2 with drop in rebound from 100 down to 70s and slowly climb back to 100 with speaking. Patient denies chest pain, abdominal pain, nausea, vomiting, headache, confusion, numbness, diarrhea, bleeding. Patient has a history of breast cancer which she reports is resolved, COPD, CVA in 2010, hyperlipidemia, hypertension, and new onset of atrial fibrillation for which she was placed on a heart monitor several days ago. Patient also reports she was diagnosed with bronchitis by her PCP less than a week ago and placed on Vibramycin 100 mg twice a day of which she has taken 2 pills. Upon admission to the ED, patient's WBC was 12.3, heart rate 95, and respiratory rate greater than 20. Patient currently meets sepsis criteria and is high risk for respiratory failure as well as new onset atrial fibrillation. Patient to be placed as inpatient status with continuous cardiac telemetry, supplemental O2 with titration if SPO2 is less than 92%, continuous SPO2 monitoring, DuoNeb's 3 mL IH Q4, blood/sputum/urine cultures ordered stat, lactic acid ordered stat, bilirubin ordered stat, BiPAP if supplemental O2 noneffective, continuation of ceftriaxone 2000 mg IV piggyback daily, continuation of Levaquin 750 mg IV piggyback daily, and falls precautions/dh-[id number]-[id number]/bed rest with bedside commode with assist only status due to extreme hypoxia, SOB, and dizziness. Patient to be monitored closely for signs of respiratory decline/failure. Past Med Surg Social Fam HX - Past Medical History Source: patient Medical history: cancer, COPD, CVA, hyperlipidemia, hypertension Psychiatric history: no psych history - Past Surgical History Surgical History: breast surgery, other (Removal of right kidney, tubal ligation , and tonsillectomy) - Social History Smoking Status: Former smoker Alcohol use: none Drug use: none Current living situation: Home, With Family Activity Level: Uses cane/walker Recent Out of Country Travel Within the Last 8 Weeks: No Exposure or Possible Exposure to Illness During Travel: No Internal Medicine - H&P: Meds Aspirin [Lo-Dose Aspirin EC] 81 mg PO DAILY 09/16/16 [History] Losartan Potassium [Cozaar] 50 mg PO DAILY 09/16/16 [History] Simvastatin [Zocor] 20 mg PO HS 09/16/16 [History] Tiotropium [Spiriva] 18 mcg IH 0700 09/16/16 [History] Apixaban [Eliquis] 5 mg PO BID tablet 11/23/16 [Rx] Budesonide/Formoterol 160/4.5 [Symbicort 160/4.5] 2 puff IH BIDR inhaler [Rx] Anastrozole [Arimidex] 1 mg PO DAILY 04/21/17 [History] Calcium Carbonate [Calcium] 600 mg PO BID 04/21/17 [History] Cholecalciferol (D-3) [Vitamin D] 2,000 unit PO DAILY 04/21/17 [History] Diltiazem CD (24hr) [Cardizem CD] 120 mg PO DAILY 04/21/17 [History] Doxycycline Hyclate [Vibramycin] 100 mg PO BID 04/21/17 [History] Allergies prednisone Adverse Reaction (Verified 11/06/16 16:45) See Comments TREMORS All Systems PM: A 10-system review of systems was performed and is negative for pertinent findings except as documented above in the HPI. - Constitutional Constitutional: no chills, no fever(s), no night sweats - EENT Eyes: no change in vision, no discharge, no pain, no photophobia Ears: no ear discharge, no ear pain, no tinnitus Nose, mouth and throat: no dysphagia, no nasal discharge, no neck pain, no sore throat - Breasts Breasts: as per HPI - Cardiovascular Cardiovascular ROS IM: as per HPI, dyspnea, dyspnea on exertion, edema (1+ pitting edema bilaterally in LE), irregular heart rhythm, lightheadedness - Respiratory Respiratory: as per HPI, cough, dyspnea, dyspnea on exertion, chest congestion, change in phlegm color, no wheezing - Gastrointestinal Gastrointestinal: no abdominal pain, no diarrhea, no hematemesis, no hematochezia, no melena, no nausea, no vomiting - Genitourinary Genitourinary: no change in urinary stream, no dysuria, no flank pain, no hematuria Menstruation: as per HPI - Musculoskeletal Musculoskeletal ROS IM: no numbness, no tingling - Integumentary Integumentary IM: no rash, no unusual bruising - Neurological Neurological ROS: as per HPI, dizziness - Psychiatric Psychiatric: as per HPI - Endocrine Endocrine IM: as per HPI - Hematologic/Lymphatic Hematologic/Lymphatic: no easy bruising - Allergic/Immunologic Allergic/Immunologic: as per HPI - Constitutional Vitals: Temp Pulse Resp BP Pulse Ox 98.1 F 93 18 139/84 93 04/21/17 19:26 04/21/17 21:00 04/21/17 21:00 04/21/17 21:00 04/21/17 21:00 General appearance: Present: cooperative, A&O X 3, morbidly obese, pleasant, severe distress, answers questions appropriately - Head Head exam: Present: atraumatic, normocephalic - Eye Eye exam: Present: PERRL, conjuntiva pink, sclera anicteric Pupils: Present: PERRL - ENT ENT exam: Present: normal exam, normal external ear exam - Neck Neck exam general surgery: Present: normal inspection, supple, trachea midline - Respiratory Respiratory exam: Present: respiratory distress, wheezes - Cardiovascular Cardiovascular exam: Present: irregular rhythm - GI/Abdominal GI/Abdominal exam: Present: normal bowel sounds, soft, no peritoneal signs. Absent: distended, tenderness - Rectal Rectal exam: Present: deferred - Additional comments: exam deferred. - Extremities Exam Extremities exam: Present: pedal edema (1+ pitting bilaterally in LE), radial pulses palpable and symetrical - Back Exam Back exam: Present: normal inspection - Neurological Exam Neurological exam: Present: CN II-XII intact, oriented X3, no focal deficits. Absent: pronater drift, facial droop, speech deficit - Psychiatric Psychiatric exam: Present: anxious (Due to severe hypoxia) - Skin Skin exam: Present: dry, intact Internal Med - H&P Results - Labs CBC & Chem 7: 04/21/17 20:30 04/21/17 20:30 Labs: Short CBC 04/21/17 Range/Units 20:30 WBC 12.3 H (4.3-11.1) K/mcL Hgb 11.0 L (11.5-15.4) g/dL Hct 36.8 (35.3-44.9) % Plt Count 251 (140-400) K/mcL Neutrophils # 9.7 H (1.6-8.9) K/mcL BMP 04/21/17 20:30 Sodium 138 Potassium 5.6 H Chloride 98 Carbon Dioxide 30 H BUN 22 H Creatinine 2.04 H Glucose 96 Calcium 9.5 Cardiac Enzymes 04/21/17 Range/Units 20:30 Troponin I 0.02 (0-0.03) ng/mL - ABG Interpretation ABG results: 04/21/17 20:02 ABG pH 7.33 ABG pCO2 67 H ABG pO2 53 L ABG HCO3 35.3 H ABG Total CO2 37.4 H ABG O2 Saturation 84 L ABG Base Excess 7.5 H - EKG Data EKG shows normal: sinus rhythm Rate: tachycardia - EKG Data Prior EKG available for review: yes When compared to previous EKG: there are significant changes EKG comments: 04/21/17 23:42 EKG dated 11/12/16 shows sinus rhythm. EKG dated 04/21/17 shows sinus tachycardia with possible right ventricular conduction delay [RSR (QR) in V1/V2]. - Impressions ITS Impressions Chest X-Ray 04/21/17 19:47 IMPRESSION: Cardiomegaly with right pleural effusion and airspace disease, likely pulmonary edema. Pneumonia cannot be excluded. D/ / Joselyn Velasquez Cha, MD / Joselyn Velasquez Cha, MD Interpreting Provider: Joselyn Velasquez Cha, MD - Diagnostic Studies Chest x-ray Additional comments: Impressions Chest X-Ray 04/21/17 19:47 IMPRESSION: Cardiomegaly with right pleural effusion and airspace disease, likely pulmonary edema. Pneumonia cannot be excluded. D/ / Joselyn Velasquez Cha, MD / Joselyn Velasquez Cha, MD Interpreting Provider: Joselyn Velasquez Cha, MD <Fred Shoemaker - Last Filed: 04/22/17 00:54> Date of Encounter: 04/22/17 Internal Medicine - H&P: HPI History of present illness: Ms. Goodman is a 61 year old female with past medical history of COPD, hyperlipidemia, hypertension, CVA, CKD 3, atrial fibrillation, morbid obesity and history of breast cancer. She presents to the ED with complaints of shortness of breath. Symptoms started about 1 week ago and gradually worsened. Patient also complains of being dizzy and lightheaded but no syncope. Patient does have chronic respiratory failure and has been admitted in the past with similar symptoms. Patient does not use home oxygen. In the ED her O2 sat was around 80% and she required breathing treatments and also oxygen via facemask. She has been recently diagnosed with bronchitis by her primary care physician. On examination patient is awake and alert. She is in mild distress. She does feel better at present. is at bedside and he provides history. Patient and her have been explained about her guarded condition and guarded prognosis. They understood and agreed to have no unanswered questions. They have also been explained about the need for possible intubation if respiratory failure worsens. Patient will be continued on breathing treatments, IV antibiotics and IV Solu-Medrol. Patient is at high risk due to hypoxic and hypercapnic respiratory failure due to COPD. Patient also has bilateral leg pitting edema. Her last echocardiogram shows LVEF of 65- 70% and no other abnormalities. Her BNP peptide is 193 and troponin is 0.02. Patient denies chest pain, she denies palpitations. Lower leg edema could be due to chronic kidney disease stage III. Patient is a solitary kidney status. She will require nephrology consult and pulmonology consult. Patient has been diagnosed A. fib and is on anticoagulation, will consult cardiology. Low threshold for BiPAP and intubation. Repeat labs in a.m. CODE STATUS full code Heart rate is 97, blood pressure is 126/85, O2 sat is 98% on facemask at present. Heart S1-S2 positive no murmurs, lungs bilateral good air entry bilateral wheezing present with no crackles, extremities bilateral lower leg pitting edema 2+, abdomen soft nontender obese I have seen and examined the patient around 11:50 PM on 04/21/2017. I have reviewed the orders and the note. I have discussed with the nurse practitioner Elio Ford. Dx: - Acute on chronic hypoxic hypercapnic respiratory failure secondary to acute exacerbation of COPD - Probable severe obstructive sleep apnea and obesity hypoventilation - also contributing to respiratory failure - Probable sepsis secondary to possible pneumonia - CKD stage III-with hyperkalemia, and bilateral lower leg edema - solitary renal status - Paroxysmal atrial fibrillation All Systems PM: A 10-system review of systems was performed and is negative for pertinent findings except as documented above in the HPI. - Constitutional Vitals: Temp Pulse Resp BP Pulse Ox 98.1 F 97 22 126/85 98 04/21/17 19:26 04/21/17 23:00 04/21/17 23:52 04/21/17 23:23 04/21/17 23:52 Internal Med - H&P Results - Labs CBC & Chem 7: 04/21/17 20:30 04/21/17 20:30 Labs: Urine 04/21/17 Range/Units 22:53 Urine Color Yellow (Yellow) Urine Clarity Clear (Clear) Urine pH 6.0 (5.0-8.0) pH Units Ur Specific [place] 1.009 L (1.010-1.025) Urine Protein Negative (Neg-Trace) mg/dL Urine Glucose (UA) Normal (Normal) mg/dL
[2017-04-21] MEDS ORDERED: *HR* HYDROcodone/Acet 5/325 mg TABLET PO PRN (22:45)
[2017-04-21] MEDS ORDERED: Naloxone 0.4 MG/ML INJ IVP PRN (22:45)
[2017-04-21] MEDS ORDERED: Acetaminophen 325 MG TABLET PO PRN (22:45)
[2017-04-21 23:01] LABS: Bilirubin,Urine Negative (Negative); Blood,Urine Negative (Negative); Clarity,Urine Clear (Clear); Color,Urine Yellow (Yellow); Glucose,Urine (UA) Normal (Normal); Ketones,Urine Negative (Negative); Leukocyte Esterase,Urine Trace (Negative); Nitrite,Urine Negative (Negative); Protein,Urine Negative (Neg-Trace); Specific Gravity,Urine 1.009 (1.010-1.025); Urobilinogen,Urine Normal (Normal)
[2017-04-21 23:03] LABS: Bacteria,Urine Few per hpf (None-Few); Hyaline Casts,Urine None Seen per lpf (None-Few); RBC,Urine 0-3 per hpf (0-3); Squamous Epithelial Cell,Urine Many per lpf (None-Few); WBC,Urine 0-3 per hpf (0-3)
[2017-04-21] MEDS: Ipratropium/Albuterol Neb 3 ML IH SCH (23:51)
[2017-04-22] MEDS: Aspirin Enteric Coated 81 MG Tablet PO SCH ×2 (00:11→08:46)
[2017-04-22 01:05] LABS: Basophils # 0.1 K/mcL (0.0-0.2); Basophils % 0.4 %; Eosinophils % 0.2 %; Hematocrit 34.6 % (35.3-44.9); Hemoglobin 10.8 g/dL (11.5-15.4); Immature Granulocytes % 1.2 % (0-4); Lymphocytes # 0.4 K/mcL (0.6-4.6); Lymphocytes % 3.2 %; Mean Corpuscular HGB Conc 31.2 g/dL (31.6-35.5); Mean Corpuscular Hemoglobin 29.7 pg (28.0-33.3); Mean Corpuscular Volume 95.1 fL (83.0-100.0); Mean Platelet Volume 10.8 fL (9.4-12.4); Monocytes # 0.1 K/mcL (0.0-1.3); Monocytes % 0.7 %; Nucleated Red Blood Cells 0.4 /100 WBC (0); Platelet Count 206 K/mcL (140-400); Red Blood Count 3.64 M/mcL (3.82-4.97); Segmented Neutrophils % 94.3 %
[2017-04-22 01:15] LABS: INR 1.7; Prothrombin Time 18.2 Seconds (9.4-12.1)
[2017-04-22 01:18] LABS: Activated Partial Thrombo Time 29.5 Seconds (26.0-36.0)
[2017-04-22 01:21] LABS: Albumin 3.3 g/dL (3.5-5.0); Bilirubin,Total 0.3 mg/dL (0.2-1.2); Calcium 9.3 mg/dL (8.6-10.8); Chol/HDL Ratio 2.2 (0-4.9); Globulin 3.4 g/dL (2.4-3.5); Magnesium 1.8 mg/dL (1.6-2.6); Potassium 5.5 mEq/L (3.5-4.5); Total Protein 6.7 g/dL (6.0-8.3)
[2017-04-22 01:31] LABS: Platelet Estimate Normal (Normal)
[2017-04-22] MEDS: Ipratropium/Albuterol Neb 3 ML IH SCH ×6 (04:33→23:12)
[2017-04-22 05:04] LABS: ABG HCO3 34.2 mEQ/L (21-27); ABG Oxygen Saturation 89 % (95-98); ABG PH 7.25 pH Units (7.32-7.45); ABG PO2 66 mmHg (85-104); ABG TCO2 36.6 mEq/L (20-26)
[2017-04-22 05:08] LABS: Blood Gas FiO2 60 %; Blood Gas Liter Flow 15 L/MIN
[2017-04-22 05:09] LABS: ABG PCO2 78 mmHg (35-45)
[2017-04-22] MEDS ORDERED: Tiotropium 18 MCG inhalation IH SCH (07:00)
[2017-04-22 08:23] LABS: Basophils % 0.3 %; Hematocrit 35.9 % (35.3-44.9); Hemoglobin 11.1 g/dL (11.5-15.4); Immature Granulocytes % 2.2 % (0-4); Lymphocytes # 0.5 K/mcL (0.6-4.6); Lymphocytes % 3.9 %; Mean Corpuscular HGB Conc 30.9 g/dL (31.6-35.5); Mean Corpuscular Hemoglobin 29.4 pg (28.0-33.3); Mean Corpuscular Volume 95.2 fL (83.0-100.0); Mean Platelet Volume 10.7 fL (9.4-12.4); Monocytes # 0.1 K/mcL (0.0-1.3); Monocytes % 0.8 %; Nucleated Red Blood Cells 0.4 /100 WBC (0); Platelet Count 231 K/mcL (140-400); Red Blood Count 3.77 M/mcL (3.82-4.97); Red Cell Distribution Width 14.7 % (11.5-14.5); Segmented Neutrophils % 92.8 %
[2017-04-22] MEDS: Diltiazem CD (24hr) 120 MG CAPSULE PO SCH (08:46)
[2017-04-22] MEDS: Cholecalciferol (D-3) 1,000 UNIT TABLET PO SCH (08:46)
[2017-04-22] MEDS: Anastrozole 1 MG TABLET PO SCH (08:46)
[2017-04-22] MEDS: APIXABAN 5 MG TABLET PO SCH ×2 (08:46→20:11)
[2017-04-22] MEDS: methylPREDNISolone 125 MG/2 ML VIAL IVP SCH ×3 (08:46→23:29)
[2017-04-22] MEDS: Budesonide/Formoterol 160/4.5 MDI IH SCH ×2 (09:12→20:51)
--- NOTE | 2017-04-22 11:09 | Cardiology Consult Note ---
<Moni Hansen - Last Filed: 04/22/17 11:17> Date of Encounter: 04/22/17 Time of Encounter: 10:30 Assessment and Plan (1) Acute exacerbation of chronic obstructive pulmonary disease (COPD) Current Visit: Yes Status: Acute Per cardiology: -KNown COPD with admission for acute exacerbation. -pH 7.25, PCO2 78. -Currently on Bipap. -Management per primary service. (2) Paroxysmal atrial fibrillation Current Visit: Yes Status: Chronic Per cardiology: -Known paroxysmal atrial fibrillation. -On cardizem and beta julia. -On eliquis, patient denies missed doses. -ECG with sinus tachycardia. -Average HR previous 12 hours noted to be 96, sinus rhythm. No atrial fibrillation appreciated. -Echo 11/2016 with LVEF 55%, mild diastolic dysfunction, no significant valvular dysfunction, small pericardial effusion with no tamponade, all visualized tejada with normal motion. -Recommend continuing beta julia and calcium channel julia. -Cardiology will sign off and will follow in outpatient setting. Follow up set. Discussion w patient/family: The assessment and plan as outlined above was discussed with the patient who expressed understanding and agreement. All questions were answered. Thank you for involving us in the care of your patient. Please call with any questions. Discussed and reviewed with . History of Present Illness Consult date: 04/21/17 Requesting physician: Elio Ford Consult reason: new onset atrial fibrillation Chief complaint: shortness of breath History of present illness: Ms. Goodman is a 61 year old female with a relevant past medical history of renal CA with nephrectomy, COPD, CVA, atrial fibrillation, HTN, and CKD. Patient presents to [facility] with complaints of shortness of breath. Cardiology was consulted for new onset atrial fibrillation, however patient states this is not a new diagnosis for her. Patient states she takes medications to control her HR and is also on eliquis for anticoagulation. Patient currently on Bipap. Patient states her breathing is ok today. Patient denies chest pain, palpitations, or fluttering. Past Med Surg Social Fam HX - Past Medical History Attestation: Yes The following information was validated with the patient. Source: patient Medical history: cancer, COPD, CVA, hyperlipidemia, hypertension Psychiatric history: no psych history - Past Surgical History Surgical History: breast surgery, other (Removal of right kidney, tubal ligation , and tonsillectomy) - Social History Smoking Status: Former smoker Smokeless Tobacco Status: No Alcohol use: none Drug use: none Medications and Allergies Aspirin [Lo-Dose Aspirin EC] 81 mg PO DAILY 09/16/16 [History] Losartan Potassium [Cozaar] 50 mg PO DAILY 09/16/16 [History] Simvastatin [Zocor] 20 mg PO HS 09/16/16 [History] Tiotropium [Spiriva] 18 mcg IH 0700 09/16/16 [History] Apixaban [Eliquis] 5 mg PO BID tablet 11/23/16 [Rx] Budesonide/Formoterol 160/4.5 [Symbicort 160/4.5] 2 puff IH BIDR inhaler [Rx] Anastrozole [Arimidex] 1 mg PO DAILY 04/21/17 [History] Calcium Carbonate [Calcium] 600 mg PO BID 04/21/17 [History] Cholecalciferol (D-3) [Vitamin D] 2,000 unit PO DAILY 04/21/17 [History] Diltiazem CD (24hr) [Cardizem CD] 120 mg PO DAILY 04/21/17 [History] Doxycycline Hyclate [Vibramycin] 100 mg PO BID 04/21/17 [History] Allergies prednisone Adverse Reaction (Verified 11/06/16 16:45) See Comments TREMORS All Systems Review: A 10-system review of systems was performed and is negative for pertinent findings except as documented above in the HPI. - Cardiovascular Cardiovascular: as per HPI, dyspnea at rest, dyspnea on exertion Physical Examination Vital Signs, Last 4 Hours Temp Pulse Resp BP Pulse Ox 04/22/17 11:02 97.3 F L 79 16 132/84 95 04/22/17 09:12 16 94 04/22/17 08:55 88 04/22/17 08:53 88 General: Conversant, No Apparent Distress (No distress noted on Bipap. ) HEENT: Atraumatic, Normocephaly, Mucus Membranes Moist Neck: No JVD, Normal carotid pulses Cardiac: Reg Rate and Rhythm, Normal S1 and S2, No Murmur Lungs: Other (Lung sounds diminished throughout. ) Neuro: Alert and responsive, No focal deficits noted Abdomen: Soft, Non-Tender Skin: No rashes noted on visualized skin Musculoskeletal: No Chest Wall Tenderness Extremities: No Clubbing, No Cyanosis, Normal Pulses, Other (Moderate bilateral lower extremity pedal edema, non-pitting. ) Results 04/22/17 08:01 04/22/17 00:54 Lab Results Impressions Chest X-Ray 04/21/17 19:47 IMPRESSION: Cardiomegaly with right pleural effusion and airspace disease, likely pulmonary edema. Pneumonia cannot be excluded. D/ / Joselyn Velasquez Cha, MD / Joselyn Velasquez Cha, MD Interpreting Provider: Joselyn Velasquez Cha, MD Active Medications Acetaminophen (Tylenol) 650 mg PO Q6HR PRN PRN Reason: Mild Pain (1-3) Stop: 10/21/17 22:46 Hydrocodone Bitart/Acetaminophen ([place] 5-325 Mg) 1 tab PO Q4HR PRN PRN Reason: Moderate Pain (4-6) Stop: 10/21/17 22:46 Albuterol/Ipratropium (Duoneb) 3 ml IH [id number] SERJIO PRN Reason: Protocol Stop: 10/22/17 00:01 Last Admin: 04/22/17 09:13 Dose: 3 ml Anastrozole (Arimidex) 1 mg PO DAILY [facility] Stop: 10/22/17 09:01 Last Admin: 04/22/17 08:46 Dose: 1 mg Apixaban (Eliquis) 5 mg PO BID [facility] Stop: 10/22/17 09:01 Last Admin: 04/22/17 08:46 Dose: 5 mg Aspirin (Aspirin Ec) 81 mg PO DAILY [facility] Stop: 10/21/17 23:01 Last Admin: 04/22/17 08:46 Dose: 81 mg Budesonide/Formoterol Fumarate (Symbicort) 2 puff IH BIDR SERJIO PRN Reason: Protocol Stop: 10/22/17 10:01 Last Admin: 04/22/17 09:12 Dose: 2 puff Calcium Carbonate (Tums) 500 mg PO BID [facility] Stop: 10/22/17 09:01 Last Admin: 04/22/17 08:46 Dose: 500 mg Diltiazem HCl (Cardizem Cd) 120 mg PO DAILY [facility] Stop: 10/22/17 09:01 Last Admin: 04/22/17 08:46 Dose: 120 mg Ceftriaxone Sodium 2,000 mg/ (Dextrose) 100 mls @ 200 mls/hr IVPB Q24H SERJIO Stop: 10/22/17 18:01 Methylprednisolone (Solu-Medrol) 60 mg IVP Q8HR SERJIO Stop: 10/22/17 08:01 Last Admin: 04/22/17 08:46 Dose: 60 mg Metoprolol Tartrate (Lopressor) 25 mg PO BID SERJIO Stop: 10/22/17 09:01 Last Admin: 04/22/17 08:46 Dose: 25 mg Naloxone HCl (Narcan) 0.4 mg IVP Q2MIN PRN PRN Reason: Opioid Reversal Stop: 10/21/17 22:46 Simvastatin (Zocor) 40 mg PO HS SERJIO Stop: 10/22/17 21:01 Vitamin D (Vitamin D) 1,000 unit PO DAILY SERJIO Stop: 10/22/17 09:01 Last Admin: 04/22/17 08:46 Dose: 1,000 unit Laboratory Tests 04/21/17 04/22/17 04/22/17 20:30 00:54 00:54 WBC RBC ABG pH ABG pCO2 ABG pO2 Potassium 5.5 H Creatinine 2.08 H Troponin I 0.02 0.03 04/22/17 04/22/17 04/22/17 00:54 04:55 08:01 WBC 13.8 H RBC 3.64 L ABG pH 7.25 L ABG pCO2 78 H* ABG pO2 66 L Potassium Creatinine Troponin I 0.02 - Imaging and Cardiology Chest Xray: report reviewed Echo: report reviewed - EKG Interpretation EKG results cardiology: personally reviewed (ECG with sinus tachycardia, HR 100. ), other (Telemetry reviewed with average HR 96, sinus rhythm. PVCs noted. 1 four beat run of atrial tachycardia noted.) Consult Discharge Plan - Plan Referrals: Moni Hansen CNP [Advanced Practice Nurse] - 05/06/17 8:00 am Kay Palmer [Non-Partnered Physician] - 05/05/17 2:20 pm <Korin Zhang - Last Filed: 04/22/17 15:42> Date of Encounter: 04/22/17 Assessment and Plan Discussion w patient/family: The assessment and plan as outlined above was discussed with the patient and/or family members who expressed understanding and agreement. All questions were answered. Thank you for involving us in the care of your patient. Please call with any questions. History of Present Illness History of present illness: Ms. Goodman is a 61 year old female All Systems Review: A 10-system review of systems was performed and is negative for pertinent findings except as documented above in the HPI. Physical Examination Vital Signs, Last 4 Hours Pulse Resp Pulse Ox 04/22/17 15:24 85 04/22/17 11:57 85 04/22/17 11:42 14 90 Results 04/22/17 08:01 04/22/17 00:54 Lab Results 04/22/17 04/22/17 04/22/17 00:54 00:54 00:54 WBC Hgb Hct Plt Count INR 1.7 APTT 29.5 Sodium 137 Potassium 5.5 H Chloride 99 Carbon Dioxide 27 BUN 22 H Creatinine 2.08 H Glucose 148 H Calcium 9.3 Magnesium 1.8 Total Bilirubin 0.3 AST 16 ALT 12 Alkaline Phosphatase 125 Troponin I 0.03 B-Natriuretic Peptide 04/22/17 04/22/17 04/22/17 00:54 00:54 00:54 WBC 13.8 H Hgb 10.8 L Hct 34.6 L Plt Count 206 INR APTT Sodium Potassium Chloride Carbon Dioxide BUN Creatinine Glucose Calcium Magnesium Total Bilirubin 0.3 AST ALT Alkaline Phosphatase Troponin I B-Natriuretic Peptide 158 H 04/22/17 04/22/17 04/22/17 08:01 08:01 13:44 WBC 11.8 H Hgb 11.1 L Hct 35.9 Plt Count 231 INR APTT Sodium Potassium Chloride Carbon Dioxide BUN Creatinine Glucose Calcium Magnesium Total Bilirubin AST ALT Alkaline Phosphatase Troponin I 0.02 0.03 B-Natriuretic Peptide - Attending Attestation I examined this patient and my medical decision-making was reviewed with the CYBER SECURITY ANALYST/PA/Advanced Practice Nurse/Resident Physician. I agree with the documented findings, disposition and treatment plan. Ms. Goodman admitted for COPD exacerbation. Has known PAF now in NSR on rate control and anticoagulation. Consider outpatient sleep study-probably has CASH. Recent echo demonstrated normal EF. No further recommendations. Recommend outpatient follow up. Will sign off. Please call with questions.
--- NOTE | 2017-04-22 11:42 | Nephrology Consult Note ---
Date of Encounter: 04/22/17 Time of Encounter: 11:37 Assessment and Plan (1) CKD (chronic kidney disease) stage 4, GFR 15-29 ml/min Current Visit: Yes Status: Acute Kidney function at baseline Follows with Dr Gama in [place]; actually saw Dr Gama yesterday Strict I/Os Avoid nephrotoxins (2) Acute exacerbation of chronic obstructive pulmonary disease (COPD) Current Visit: Yes Status: Acute per primary team History of Present Illness - Reason for Consult Consult date: 04/22/17 Chronic Kidney Disease - Chief Complaint sepsis, CKD - History of Present Illness Ms. Goodman is a 61 year old female presents from the ED with chief complaint of extreme shortness of breath and dyspnea which is present for the last week but has become progressively worse. She has a PMH of cancer, COPD, CVA, hypertension , CKD stage 4. She follows with Dr Gama in [place] and actually just seen her yesterday. Patient's kidney function is at her baseline; has been recently having trouble with hyperkalemia and was told by Dr Gama if it continues to go high she will put her on a daily medicine to lower the K+. Patient only has one kidney. Nephrology has been consulted to manage the chronic kidney disease while hospitalized. Past Med Surg Social Fam HX - Past Medical History Medical history: cancer, COPD, CVA, hyperlipidemia, hypertension, renal disease (1 kidney; CKD stage 4 (follows with Dr Gama in [place])) Psychiatric history: no psych history - Past Surgical History Surgical History: breast surgery, other (Removal of right kidney, tubal ligation , and tonsillectomy) - Social History Smoking Status: Former smoker Smokeless Tobacco Status: No Alcohol use: none Drug use: none Medications and Allergies Aspirin [Lo-Dose Aspirin EC] 81 mg PO DAILY 09/16/16 [History] Losartan Potassium [Cozaar] 50 mg PO DAILY 09/16/16 [History] Simvastatin [Zocor] 20 mg PO HS 09/16/16 [History] Tiotropium [Spiriva] 18 mcg IH 0700 09/16/16 [History] Apixaban [Eliquis] 5 mg PO BID tablet 11/23/16 [Rx] Budesonide/Formoterol 160/4.5 [Symbicort 160/4.5] 2 puff IH BIDR inhaler [Rx] Anastrozole [Arimidex] 1 mg PO DAILY 04/21/17 [History] Calcium Carbonate [Calcium] 600 mg PO BID 04/21/17 [History] Cholecalciferol (D-3) [Vitamin D] 2,000 unit PO DAILY 04/21/17 [History] Diltiazem CD (24hr) [Cardizem CD] 120 mg PO DAILY 04/21/17 [History] Doxycycline Hyclate [Vibramycin] 100 mg PO BID 04/21/17 [History] Allergies prednisone Adverse Reaction (Verified 11/06/16 16:45) See Comments TREMORS Review of Systems All Systems: reviewed and no additional remarkable complaints except as stated Constitutional: fatigue, no fever(s) Cardiovascular: dyspnea, dyspnea on exertion, edema, no chest pain Respiratory: dyspnea, dyspnea on exertion Gastrointestinal: no diarrhea, no nausea, no vomiting Neurological: no behavioral changes, no confusion Exam - Vital Signs Vital signs: Initial Vital Signs Temp Pulse Resp BP Pulse Ox 98.1 F 95 20 149/87 75 04/21/17 19:26 04/21/17 19:26 04/21/17 19:26 04/21/17 19:26 04/21/17 19:26 Vital Signs - Last 8 Hours Temp Pulse Resp BP Pulse Ox 04/22/17 11:02 97.3 F L 79 16 132/84 95 04/22/17 09:12 16 94 04/22/17 08:55 88 04/22/17 08:53 88 04/22/17 06:49 98.7 F 95 17 146/76 92 04/22/17 05:21 14 95 04/22/17 04:34 20 89 Intake and Output 04/21/17 04/22/17 04/22/17 23:59 07:59 15:59 Output Total 400 / 400 500 / 500 Balance -400 / -400 -500 / -500 Output: Urine 400 / 400 500 / 500 - General Appearance General appearance: well-nourished, obese EENT: ATNC, mucous membranes moist, hearing intact, vision intact Neck: supple Respiratory: course breath sounds Cardiology: edema, normal S1, normal S2 Gastrointestinal: no tenderness, no guarding, obese Integumentary: warm and dry Neurologic: alert and oriented x3 Psychiatric: mood/affect appropriate, cooperative Results - Lab Results 04/22/17 08:01 04/22/17 00:54 Most recent lab results ABG pH 7.25 pH Units (7.32-7.45) L 04/22/17 04:55 ABG pCO2 78 mmHg (35-45) H* 04/22/17 04:55 ABG pO2 66 mmHg (85-104) L 04/22/17 04:55 ABG HCO3 34.2 mEQ/L (21-27) H 04/22/17 04:55 ABG O2 Saturation 89 % (95-98) L 04/22/17 04:55 Calcium 9.3 mg/dL (8.6-10.8) 04/22/17 00:54 Magnesium 1.8 mg/dL (1.6-2.6) 04/22/17 00:54 Consult Discharge Plan - Plan Referrals: NO,PCP [Primary Care Provider] - Kay Palmer [Non-Partnered Physician] - 05/05/17 2:20 pm
--- NOTE | 2017-04-22 11:49 | Internal Med Progress Note ---
Date of Encounter: 04/22/17 Time of Encounter: 11:49 - Assessment and plan (1) Acute on chronic respiratory failure with hypoxia and hypercapnia Current Visit: Yes Status: Acute Assessment and plan: Likely secondary to COPD exacerbation Patient not on O2 therapy at home and will likely be discharged with home O2 continue bipap support given current ABG findings systemic steroids and bronchodilator support O2 supplementation will do overnight bipap qualification study goal O2: 89-92% IV abx closely monitor respiratory status serial ABG as needed oil well services dispatcher consulted for arrangement of home oxygen therapy (2) Acute exacerbation of chronic obstructive pulmonary disease (COPD) Current Visit: Yes Status: Acute Assessment and plan: as listed above (3) Hypertension Current Visit: Yes Status: Chronic Assessment and plan: BP within acceptable range continue home meds closely monitor currently holding Losartan given renal function, however as per director epidemiology, renal function at baseline, if becomes hypertensive, will resume Losartan Qualifiers: Hypertension type: essential hypertension Qualified Code(s): I10 - Essential (primary) hypertension (4) Chronic kidney disease Current Visit: Yes Status: Chronic Assessment and plan: renal function at baseline will closely monitor nephrology eval appreciated Qualifiers: Chronic kidney disease stage: stage 4 (severe) Qualified Code(s): N18.4 - Chronic kidney disease, stage 4 (severe) (5) Hyperkalemia Current Visit: Yes Status: Acute Assessment and plan: No EKG changes reported will give one dose of Kayexalate 30 closely monitor (6) Atrial fibrillation Current Visit: Yes Status: Acute Assessment and plan: Rate currently controlled with CCB and BB anticoagulated with Eliquis will continue to monitor Qualifiers: Atrial fibrillation type: unspecified Qualified Code(s): I48.91 - Unspecified atrial fibrillation (7) DVT prophylaxis Current Visit: Yes Status: Acute Assessment and plan: anticoagulated with Eliquis (8) Morbid obesity with BMI of 45.0-49.9, adult Current Visit: Yes Status: Chronic - Subjective Interval history: Patient seen and examined with present at bedside. Patient admitted for acute on chronic respiratory failure secondary to COPD exacerbation. Patient reports of feeling significantly better since her admission. States she does not currently have any home oxygen due to insurance purposes. Will get social economist involved for home oxygen set up prior to discharge. - Constitutional Vitals: Temp Pulse Resp BP Pulse Ox 97.3 F L 79 14 132/84 90 04/22/17 11:02 04/22/17 11:02 04/22/17 11:42 04/22/17 11:02 04/22/17 11:42 General appearance: Present: cooperative, A&O X 3, morbidly obese, pleasant, no acute distress, answers questions appropriately - Head Head exam: Present: atraumatic, normocephalic - Eye Eye exam: Present: normal appearance, conjuntiva pink, sclera anicteric - Respiratory Respiratory exam: Absent: respiratory distress, wheezes Additional comments: equal air entry bilaterally - Cardiovascular Cardiovascular exam: Present: RRR, +S1, +S2 - GI/Abdominal GI/Abdominal exam: Present: normal bowel sounds, soft, no peritoneal signs. Absent: distended, tenderness - Extremities Exam Extremities exam: Present: warm, radial pulses palpable and symetrical. Absent : calf tenderness, pedal edema - Neurological Exam Neurological exam: Present: alert, oriented X3 - Psychiatric Psychiatric exam: Present: normal affect, normal mood Internal Medicine: Result - Labs CBC & Chem 7: 04/22/17 08:01 04/22/17 00:54 Labs: Short CBC 04/22/17 04/22/17 Range/Units 00:54 08:01 WBC 13.8 H 11.8 H (4.3-11.1) K/mcL Hgb 10.8 L 11.1 L (11.5-15.4) g/dL Hct 34.6 L 35.9 (35.3-44.9) % Plt Count 206 231 (140-400) K/mcL Neutrophils # 13.0 H 11.0 H (1.6-8.9) K/mcL BMP 04/22/17 00:54 Sodium 137 Potassium 5.5 H Chloride 99 Carbon Dioxide 27 BUN 22 H Creatinine 2.08 H Glucose 148 H Calcium 9.3 Cardiac Enzymes 04/22/17 04/22/17 Range/Units 00:54 08:01 Troponin I 0.03 0.02 (0-0.03) ng/mL Liver Function 04/22/17 04/22/17 Range/Units 00:54 00:54 Total Bilirubin 0.3 0.3 (0.2-1.2) mg/dL AST 16 (5-34) Units/L ALT 12 (0-55) Units/L Alkaline Phosphatase 125 (38-126) Units/L Albumin 3.3 L (3.5-5.0) g/dL Urine 04/21/17 Range/Units 22:53 Urine Color Yellow (Yellow) Urine Clarity Clear (Clear) Urine pH 6.0 (5.0-8.0) pH Units Ur Specific [place] 1.009 L (1.010-1.025) Urine Protein Negative (Neg-Trace) mg/dL Urine Glucose (UA) Normal (Normal) mg/dL - ABG Interpretation ABG results: ABG ABG pH 7.25 pH Units (7.32-7.45) L 04/22/17 04:55 ABG pCO2 78 mmHg (35-45) H* 04/22/17 04:55 ABG pO2 66 mmHg (85-104) L 04/22/17 04:55 ABG O2 Saturation 89 % (95-98) L 04/22/17 04:55 PT/INR, D-dimer PT 18.2 Seconds (9.4-12.1) H 04/22/17 00:54 Consult Discharge Plan - Plan Referrals: NO,PCP [Primary Care Provider] - Kay Palmer [Non-Partnered Physician] - 05/05/17 2:20 pm
[2017-04-22 12:11] LABS: Hemoglobin A1C 5.6 %
[2017-04-22] MEDS: levoFLOXacin 750 MG TABLET PO SCH (13:25)
[2017-04-23] MEDS: Ipratropium/Albuterol Neb 3 ML IH SCH ×5 (03:58→19:47)
[2017-04-23 06:10] LABS: Basophils % 0.1 %; Hematocrit 34.4 % (35.3-44.9); Hemoglobin 10.6 g/dL (11.5-15.4); Immature Granulocytes % 0.8 % (0-4); Lymphocytes # 0.3 K/mcL (0.6-4.6); Lymphocytes % 2.9 %; Mean Corpuscular HGB Conc 30.8 g/dL (31.6-35.5); Mean Platelet Volume 10.6 fL (9.4-12.4); Monocytes # 0.3 K/mcL (0.0-1.3); Monocytes % 2.8 %; Neutrophils # 10.7 K/mcL (1.6-8.9); Nucleated Red Blood Cells 0.3 /100 WBC (0); Platelet Count 223 K/mcL (140-400); Red Blood Count 3.66 M/mcL (3.82-4.97); Segmented Neutrophils % 93.4 %
[2017-04-23 06:22] LABS: Calcium 8.5 mg/dL (8.6-10.8); Magnesium 1.8 mg/dL (1.6-2.6)
[2017-04-23] MEDS: Budesonide/Formoterol 160/4.5 MDI IH SCH ×2 (07:33→19:47)
[2017-04-23] MEDS: Diltiazem CD (24hr) 120 MG CAPSULE PO SCH (08:52)
[2017-04-23] MEDS: APIXABAN 5 MG TABLET PO SCH ×2 (08:52→21:20)
[2017-04-23] MEDS: Aspirin Enteric Coated 81 MG Tablet PO SCH (08:52)
[2017-04-23] MEDS: methylPREDNISolone 125 MG/2 ML VIAL IVP SCH ×2 (08:52→17:33)
[2017-04-23] MEDS: Cholecalciferol (D-3) 1,000 UNIT TABLET PO SCH (08:52)
[2017-04-23] MEDS: Anastrozole 1 MG TABLET PO SCH (08:52)
[2017-04-23] MEDS ORDERED: Diltiazem SR (12hr) 60 MG CAPSULE PO ONE (09:45)
--- NOTE | 2017-04-23 09:46 | Internal Med Progress Note ---
Date of Encounter: 04/23/17 Time of Encounter: 09:46 - Assessment and plan (1) Acute on chronic respiratory failure with hypoxia and hypercapnia Current Visit: Yes Status: Acute Assessment and plan: Likely secondary to COPD exacerbation Patient not on O2 therapy at home and will be discharged with home O2 continue bipap support as needed and at bedtime systemic steroids and bronchodilator support O2 supplementation pt qualified for home bipap support on discharge goal O2: 89-92% IV abx closely monitor respiratory status serial ABG as needed noted to continue to require high flow oxygen therapy, will continue current dose of systemic steroids at this time and closely monitor If no further clinical improvement noted, will obtain CT chest administrative services manager consulted for arrangement of home oxygen therapy (2) Acute exacerbation of chronic obstructive pulmonary disease (COPD) Current Visit: Yes Status: Acute Assessment and plan: as listed above (3) Hypertension Current Visit: Yes Status: Chronic Assessment and plan: Noted to be hypertensive this morning will restart Losartan at this time continue all other home medications closely monitor BP Qualifiers: Hypertension type: essential hypertension Qualified Code(s): I10 - Essential (primary) hypertension (4) Chronic kidney disease Current Visit: Yes Status: Chronic Assessment and plan: renal function at baseline will closely monitor nephrology eval appreciated Qualifiers: Chronic kidney disease stage: stage 4 (severe) Qualified Code(s): N18.4 - Chronic kidney disease, stage 4 (severe) (5) Hyperkalemia Current Visit: Yes Status: Acute Assessment and plan: Improved from previous day will give another dose of Kayxelate closely monitor (6) Atrial fibrillation Current Visit: Yes Status: Acute Assessment and plan: Rate currently poorly controlled will increase Cardizem to 180mg PO qd and continue BB at the current dose anticoagulated with Eliquis will continue to monitor Qualifiers: Atrial fibrillation type: unspecified Qualified Code(s): I48.91 - Unspecified atrial fibrillation (7) DVT prophylaxis Current Visit: Yes Status: Acute Assessment and plan: anticoagulated with Eliquis (8) Morbid obesity with BMI of 45.0-49.9, adult Current Visit: Yes Status: Chronic - Subjective Interval history: Patient seen and examined at bedside. Sitting in bed and reports of feeling significantly better, however she continues to require high flow oxygen therapy. Patient qualified for bipap support upon discharge. Noted to be tachycardic and was recently diagnosed with Afib. Will increase cardizem dose and closely monitor HR. No overnight issues reported. - Constitutional Vitals: Temp Pulse Resp BP Pulse Ox 98.0 F 107 16 167/81 89 04/23/17 07:42 04/23/17 07:42 04/23/17 07:42 04/23/17 07:42 04/23/17 07:42 General appearance: Present: cooperative, A&O X 3, morbidly obese, pleasant, no acute distress, answers questions appropriately - Head Head exam: Present: atraumatic, normocephalic - Eye Eye exam: Present: normal appearance, conjuntiva pink, sclera anicteric - Respiratory Respiratory exam: Absent: respiratory distress, wheezes (equal air entry bilaterally) - Cardiovascular Cardiovascular exam: Present: irregular rhythm, +S1, +S2, tachycardia - GI/Abdominal GI/Abdominal exam: Present: distended (obese), normal bowel sounds, soft. Absent: tenderness - Extremities Exam Extremities exam: Present: warm, radial pulses palpable and symetrical. Absent : calf tenderness, pedal edema - Neurological Exam Neurological exam: Present: alert, oriented X3 - Psychiatric Psychiatric exam: Present: normal affect, normal mood Internal Medicine: Result - Labs CBC & Chem 7: 04/23/17 05:56 04/23/17 05:56 Labs: Short CBC 04/23/17 Range/Units 05:56 WBC 11.4 H (4.3-11.1) K/mcL Hgb 10.6 L (11.5-15.4) g/dL Hct 34.4 L (35.3-44.9) % Plt Count 223 (140-400) K/mcL Neutrophils # 10.7 H (1.6-8.9) K/mcL BMP 04/23/17 05:56 Sodium 139 Potassium 5.0 H Chloride 101 Carbon Dioxide 28 BUN 29 H Creatinine 1.93 H Glucose 169 H Calcium 8.5 L Cardiac Enzymes 04/22/17 Range/Units 13:44 Troponin I 0.03 (0-0.03) ng/mL - ABG Interpretation ABG results: ABG ABG pH 7.25 pH Units (7.32-7.45) L 04/22/17 04:55 ABG pCO2 78 mmHg (35-45) H* 04/22/17 04:55 ABG pO2 66 mmHg (85-104) L 04/22/17 04:55 ABG O2 Saturation 89 % (95-98) L 04/22/17 04:55 PT/INR, D-dimer PT 18.2 Seconds (9.4-12.1) H 04/22/17 00:54 Consult Discharge Plan - Plan Referrals: Moni Hansen CNP [Advanced Practice Nurse] - 05/06/17 8:00 am Kay Palmer [Non-Partnered Physician] - 05/05/17 2:20 pm
--- NOTE | 2017-04-23 12:47 | Nephrology Progress Note ---
Date of Encounter: 04/23/17 Time of Encounter: 12:41 - Assessment and Plan (1) CKD (chronic kidney disease) stage 4, GFR 15-29 ml/min Current Visit: Yes Status: Acute Renal function seems relatively stable. Will follow labs peripherally. (2) Hyperkalemia Current Visit: Yes Status: Acute Improving. Continue medical managment. (3) Hypertension Current Visit: No Status: Chronic titrate medication as needed. Qualifiers: Hypertension type: essential hypertension Qualified Code(s): I10 - Essential (primary) hypertension Subjective Principal diagnosis: CKD Interval history: Patient seen. She is sitting up in a chair with a face mask for oxygen on. No new complaints. She feels better. Objective - Vital Signs Vital signs: Vital Signs Temp Pulse Resp BP Pulse Ox 04/23/17 11:36 98.0 F 96 18 148/93 92 04/23/17 11:10 18 95 04/23/17 10:12 93 16 158/76 92 04/23/17 09:16 104 90 04/23/17 07:42 98.0 F 107 16 167/81 89 04/23/17 07:34 11 152/82 90 04/23/17 04:00 16 91 04/23/17 03:05 97.9 F 105 13 152/82 92 04/22/17 23:30 98.9 F 105 14 157/77 91 04/22/17 23:23 91 04/22/17 23:15 16 96 04/22/17 20:51 16 94 04/22/17 19:50 107 04/22/17 19:46 98.8 F 108 23 151/74 92 04/22/17 16:43 18 89 04/22/17 15:40 98.3 F 101 18 135/87 89 04/22/17 15:24 85 Intake and Output 04/22/17 04/23/17 04/23/17 23:59 07:59 15:59 Intake Total 240 / 240 120 / 120 Output Total 350 / 350 400 / 400 Balance -110 / -110 -400 / -400 120 / 120 Intake: Oral 240 / 240 120 / 120 Output: Urine 350 / 350 400 / 400 Other: Meal Dinner Breakfast Percent of Meal Consumed 60% 20% Stool Size Small Stool Consistency liquid Stool Color Brown # Voids 1 Weight 141.5 kg Patient Weight 04/23/17 23:59 Weight 141.5 kg - General Appearance General appearance: Present: well-developed, well-nourished EENT: Present: ATNC Neck: Present: supple Cardiology: Present: regular rate Gastrointestinal: Present: obese Neurologic: Present: alert and oriented x3 Psychiatric: Present: mood/affect appropriate - Lab 04/23/17 05:56 04/23/17 05:56 Most recent lab results ABG pH 7.25 pH Units (7.32-7.45) L 04/22/17 04:55 ABG pCO2 78 mmHg (35-45) H* 04/22/17 04:55 ABG pO2 66 mmHg (85-104) L 04/22/17 04:55 ABG HCO3 34.2 mEQ/L (21-27) H 04/22/17 04:55 ABG O2 Saturation 89 % (95-98) L 04/22/17 04:55 Calcium 8.5 mg/dL (8.6-10.8) L 04/23/17 05:56 Phosphorus 4.0 mg/dL (2.3-4.7) 04/23/17 05:56 Magnesium 1.8 mg/dL (1.6-2.6) 04/23/17 05:56 Consult Discharge Plan - Plan Referrals: Moni Hansen CNP [Advanced Practice Nurse] - 05/06/17 8:00 am Kay Palmer [Non-Partnered Physician] - 05/05/17 2:20 pm
--- NOTE | 2017-04-23 17:33 | Electrocardiograph Report ---
[address] [address] Test Date: 2017-04-21 Pat Name: Sierra Goodman Department: 105 Room: 2N03 Gender: F Line Crewman: RYANNE Lo : 1955 Requested By: Andres Reinoso Order Number: [id number] Reading MD: Korin Zhang Measurements Intervals [place] Rate: 100 P: 43 TN: 169 QRS: 73 QRSD: 96 T: 56 QT: 324 QTc: 381 Interpretive Statements SINUS TACHYCARDIA POSSIBLE RIGHT VENTRICULAR CONDUCTION DELAY ABNORMAL RHYTHM ECG ARTIFACT Electronically Signed On 04-23-2017 17:32:13 EDT by Korin Zhang
[2017-04-23] MEDS ORDERED: Levofloxacin 750 MG/150 ML 750 MG/150 ML BAG IVPB SCH (22:00)
[2017-04-24] MEDS: Ipratropium/Albuterol Neb 3 ML IH SCH ×7 (00:22→23:11)
[2017-04-24] MEDS: methylPREDNISolone 125 MG/2 ML VIAL IVP SCH ×3 (04:05→17:49)
[2017-04-24 07:26] LABS: Calcium 8.5 mg/dL (8.6-10.8); Magnesium 1.8 mg/dL (1.6-2.6); Phosphorous 3.7 mg/dL (2.3-4.7); Potassium 4.4 mEq/L (3.5-4.5)
[2017-04-24] MEDS: Diltiazem CD (24hr) 180 MG CAPSULE PO SCH (07:59)
[2017-04-24] MEDS: Cholecalciferol (D-3) 1,000 UNIT TABLET PO SCH (07:59)
[2017-04-24] MEDS: Aspirin Enteric Coated 81 MG Tablet PO SCH (07:59)
[2017-04-24] MEDS: APIXABAN 5 MG TABLET PO SCH ×2 (07:59→20:18)
[2017-04-24] MEDS: Anastrozole 1 MG TABLET PO SCH (07:59)
[2017-04-24] MEDS: Budesonide/Formoterol 160/4.5 MDI IH SCH ×2 (08:30→20:24)
[2017-04-24 08:32] LABS: Basophils % 0.1 %; Hematocrit 36.4 % (35.3-44.9); Hemoglobin 10.8 g/dL (11.5-15.4); Immature Granulocytes % 0.7 % (0-4); Lymphocytes # 0.3 K/mcL (0.6-4.6); Lymphocytes % 2.9 %; Mean Corpuscular HGB Conc 29.7 g/dL (31.6-35.5); Mean Corpuscular Hemoglobin 28.2 pg (28.0-33.3); Mean Platelet Volume 10.8 fL (9.4-12.4); Monocytes # 0.4 K/mcL (0.0-1.3); Monocytes % 3.4 %; Neutrophils # 10.6 K/mcL (1.6-8.9); Nucleated Red Blood Cells 0.3 /100 WBC (0); Platelet Count 235 K/mcL (140-400); Red Blood Count 3.83 M/mcL (3.82-4.97); Red Cell Distribution Width 14.9 % (11.5-14.5); Segmented Neutrophils % 92.9 %
--- NOTE | 2017-04-24 10:36 | Internal Med Progress Note ---
Date of Encounter: 04/24/17 Time of Encounter: 10:34 - Assessment and plan (1) Acute on chronic respiratory failure with hypoxia and hypercapnia Current Visit: Yes Status: Acute Assessment and plan: Likely secondary to COPD exacerbation Patient not on O2 therapy at home and will be discharged with home O2 continue bipap support as needed and at bedtime systemic steroids and bronchodilator support (decreased steroids to solumedrol 60mg IV q12h) O2 supplementation pt qualified for home bipap support on discharge goal O2: 89-92% IV abx closely monitor respiratory status serial ABG as needed clinically improving however continues to require 5-6L NC therapy, will closely monitor (2) Acute exacerbation of chronic obstructive pulmonary disease (COPD) Current Visit: Yes Status: Acute Assessment and plan: as listed above (3) Hypertension Current Visit: Yes Status: Chronic Assessment and plan: Noted to be hypertensive this morning continue Losartan continue all other home medications closely monitor BP Qualifiers: Hypertension type: essential hypertension Qualified Code(s): I10 - Essential (primary) hypertension (4) Chronic kidney disease Current Visit: Yes Status: Chronic Assessment and plan: renal function at baseline will closely monitor nephrology eval appreciated Qualifiers: Chronic kidney disease stage: stage 4 (severe) Qualified Code(s): N18.4 - Chronic kidney disease, stage 4 (severe) (5) Hyperkalemia Current Visit: Yes Status: Resolved (6) Atrial fibrillation Current Visit: Yes Status: Acute Assessment and plan: Rate currently poorly controlled continue Cardizem to 180mg PO qd and continue BB at the current dose anticoagulated with Eliquis will continue to monitor Qualifiers: Atrial fibrillation type: unspecified Qualified Code(s): I48.91 - Unspecified atrial fibrillation (7) DVT prophylaxis Current Visit: Yes Status: Acute Assessment and plan: anticoagulated with Eliquis (8) Morbid obesity with BMI of 45.0-49.9, adult Current Visit: Yes Status: Chronic - Subjective Interval history: Patient seen and examined at bedside. Sitting in chair and reports of feeling better. Currently down to 5.5L of NC therapy compared to the 7-8L during the day. Improvement in work of breathing and O2 demand noted. Denies any discomfort at this time. No overnight issues reported. - Constitutional Vitals: Temp Pulse Resp BP Pulse Ox 97.8 F 101 20 131/98 92 04/24/17 08:00 04/24/17 08:00 04/24/17 08:30 04/24/17 08:00 04/24/17 08:30 General appearance: Present: cooperative, A&O X 3, morbidly obese, pleasant, no acute distress, answers questions appropriately - Head Head exam: Present: atraumatic, normocephalic - Eye Eye exam: Present: conjuntiva pink, sclera anicteric - Respiratory Respiratory exam: Absent: respiratory distress, wheezes - Cardiovascular Cardiovascular exam: Present: RRR, +S1, +S2. Absent: diastolic murmur, gallop, rubs, systolic murmur - GI/Abdominal GI/Abdominal exam: Present: normal bowel sounds, soft, no peritoneal signs. Absent: distended, tenderness - Extremities Exam Extremities exam: Present: pedal edema, warm, radial pulses palpable and symetrical. Absent: calf tenderness - Neurological Exam Neurological exam: Present: alert, oriented X3 - Psychiatric Psychiatric exam: Present: normal affect, normal mood Internal Medicine: Result - Labs CBC & Chem 7: 04/24/17 06:47 04/24/17 06:47 Labs: Short CBC 04/24/17 Range/Units 06:47 WBC 11.5 H (4.3-11.1) K/mcL Hgb 10.8 L (11.5-15.4) g/dL Hct 36.4 (35.3-44.9) % Plt Count 235 (140-400) K/mcL Neutrophils # 10.6 H (1.6-8.9) K/mcL BMP 04/24/17 06:47 Sodium 141 Potassium 4.4 Chloride 100 Carbon Dioxide 32 H BUN 34 H Creatinine 1.80 H Glucose 164 H Calcium 8.5 L - ABG Interpretation ABG results: ABG ABG pH 7.25 pH Units (7.32-7.45) L 04/22/17 04:55 ABG pCO2 78 mmHg (35-45) H* 04/22/17 04:55 ABG pO2 66 mmHg (85-104) L 04/22/17 04:55 ABG O2 Saturation 89 % (95-98) L 04/22/17 04:55 PT/INR, D-dimer PT 18.2 Seconds (9.4-12.1) H 04/22/17 00:54 Consult Discharge Plan - Plan Referrals: Moni Hansen CNP [Advanced Practice Nurse] - 05/06/17 8:00 am Kay Palmer [Non-Partnered Physician] - 05/05/17 2:20 pm
[2017-04-24] MEDS: levoFLOXacin 750 MG TABLET PO SCH (13:12)
[2017-04-25] MEDS: Ipratropium/Albuterol Neb 3 ML IH SCH ×4 (04:23→15:06)
[2017-04-25 05:05] LABS: Hemoglobin 10.6 g/dL (11.5-15.4); Immature Granulocytes % 0.5 % (0-4); Lymphocytes # 0.2 K/mcL (0.6-4.6); Lymphocytes % 2.4 %; Mean Corpuscular HGB Conc 31.2 g/dL (31.6-35.5); Mean Corpuscular Hemoglobin 28.8 pg (28.0-33.3); Mean Corpuscular Volume 92.4 fL (83.0-100.0); Mean Platelet Volume 10.4 fL (9.4-12.4); Monocytes # 0.3 K/mcL (0.0-1.3); Monocytes % 3.6 %; Neutrophils # 8.6 K/mcL (1.6-8.9); Nucleated Red Blood Cells 0.4 /100 WBC (0); Platelet Count 221 K/mcL (140-400); Red Blood Count 3.68 M/mcL (3.82-4.97); Red Cell Distribution Width 14.7 % (11.5-14.5); Segmented Neutrophils % 93.5 %
[2017-04-25 05:24] LABS: Calcium 8.4 mg/dL (8.6-10.8); Magnesium 1.9 mg/dL (1.6-2.6); Phosphorous 3.2 mg/dL (2.3-4.7); Potassium 4.4 mEq/L (3.5-4.5)
[2017-04-25] MEDS: methylPREDNISolone 125 MG/2 ML VIAL IVP SCH (06:22)
[2017-04-25] MEDS: Budesonide/Formoterol 160/4.5 MDI IH SCH (07:18)
[2017-04-25] MEDS: Cholecalciferol (D-3) 1,000 UNIT TABLET PO SCH (09:26)
[2017-04-25] MEDS: Anastrozole 1 MG TABLET PO SCH (09:26)
[2017-04-25] MEDS: Aspirin Enteric Coated 81 MG Tablet PO SCH (09:26)
[2017-04-25] MEDS: APIXABAN 5 MG TABLET PO SCH (09:26)
[2017-04-25] MEDS: Diltiazem CD (24hr) 180 MG CAPSULE PO SCH (09:26)
--- NOTE | 2017-04-25 10:44 | Discharge Summary ---
Date of Encounter: 04/25/17 Time of Encounter: 10:40 - Discharge Diagnosis (1) Acute on chronic respiratory failure with hypoxia and hypercapnia Priority: Primary Status: Acute (2) Acute exacerbation of chronic obstructive pulmonary disease (COPD) Priority: Primary Status: Acute (3) Hypertension Priority: Secondary Status: Chronic Qualifiers: Hypertension type: essential hypertension Qualified Code(s): I10 - Essential (primary) hypertension (4) Chronic kidney disease Priority: Secondary Status: Chronic Qualifiers: Chronic kidney disease stage: stage 4 (severe) Qualified Code(s): N18.4 - Chronic kidney disease, stage 4 (severe) (5) Hyperkalemia Priority: Secondary Status: Resolved (6) Atrial fibrillation Priority: Secondary Status: Acute Qualifiers: Atrial fibrillation type: unspecified Qualified Code(s): I48.91 - Unspecified atrial fibrillation (7) DVT prophylaxis Priority: Secondary Status: Acute (8) Morbid obesity with BMI of 45.0-49.9, adult Priority: Secondary Status: Chronic - Discharge Medications Prescriptions: Diltiazem CD (24hr) [Cardizem CD] 180 mg PO DAILY #30 cap.er.24h levoFLOXacin [Levaquin] 750 mg PO Q48H #1 tablet Metoprolol [Lopressor] 25 mg PO BID #60 tablet predniSONE [PredniSONE] 40 mg PO DAILY #7 tablet Home Medications: Aspirin [Lo-Dose Aspirin EC] 81 mg PO DAILY 09/16/16 [History] Losartan Potassium [Cozaar] 50 mg PO DAILY 09/16/16 [History] Simvastatin [Zocor] 20 mg PO HS 09/16/16 [History] Tiotropium [Spiriva] 18 mcg IH 0700 09/16/16 [History] Apixaban [Eliquis] 5 mg PO BID tablet 11/23/16 [Rx] Budesonide/Formoterol 160/4.5 [Symbicort 160/4.5] 2 puff IH BIDR inhaler [Rx] Anastrozole [Arimidex] 1 mg PO DAILY 04/21/17 [History] Calcium Carbonate [Calcium] 600 mg PO BID 04/21/17 [History] Cholecalciferol (D-3) [Vitamin D] 2,000 unit PO DAILY 04/21/17 [History] Diltiazem CD (24hr) [Cardizem CD] 180 mg PO DAILY #30 cap.er.24h 04/25/17 [Rx] Metoprolol [Lopressor] 25 mg PO BID #60 tablet 04/25/17 [Rx] levoFLOXacin [Levaquin] 750 mg PO Q48H #1 tablet 04/25/17 [Rx] predniSONE [PredniSONE] 40 mg PO DAILY #7 tablet 04/25/17 [Rx] Allergies/Adverse Reactions: Allergies No Known Allergies Allergy (Verified 04/24/17 10:34) Date of admission: 04/21/17 22:45 Primary care physician: PCP NO Consults: 04/21/17 23:29 Consult to Cardiology [CONS] Routine Comment: Consulting Provider: Cardiology Vera Reason for Consult: New onset of atrial fibrillation Call Completed: No Consult to Nephrology [CONS] Routine Consulting Provider: Kidney Chilo/LARRY/EZEKIEL/DENNY Reason for Consult: Patient has one kidney and currently is in Stage IV CKD. Patient has new onset of Afib and pedal edema and is in need of diuresis. Call Completed: No 04/22/17 00:04 Consult to Pulmonology [CONS] Routine Consulting Provider: Pulm Crit Care & Sleep Vera Reason for Consult: Hypoxic respo failure, COPD, CASH Call Completed: No Discharging clinician: Teresa Mosley Anticipated date of discharge: 04/25/17 - Patient Status Disposition: Home, Self-Care Condition: Serious Functional capacity at discharge: independent ambulation Overall status at discharge: patient is back to baseline - Discharge Instructions Follow Up With: Moni Hansen CNP [Advanced Practice Nurse] - 05/06/17 8:00 am Kay Palmer [Non-Partnered Physician] - 05/05/17 2:20 pm Additional Instructions: Please follow up with your primary care physician within five days after your discharge from the hospital. Please follow up with your heating equipment installer within one week after your discharge from the hospital. Metoprolol 25mg twice a day has been added to your home medications. Please take this medication as prescribed. Your home dose of Cardizem has been increased to 180mg once a day. Please take this medication as prescribed. continue Prednisone and Levofloxacin as prescribed. Resume all your home medications as prescribed by your primary care physician. continue to wear oxygen at all times. Bipap at bedtime - Diet and Activity Activity: resume usual activities as tolerated, wear oxygen at all times Diet: low salt diet Hospital course: Ms. Goodman is a 61 year old female with PMH of COPD, Afib on anticoagulation, HTN , HLD, morbid obesity who was admitted for management of acute respiratory distress secondary to COPD exacerbation. She was started on IV steroids, bronchodilator support, and abx. She responded appropriately to therapy. She was also noted to have poorly rate controlled Afib for which BB was added and CCB dose was increased. She qualified for home Oxygen and bipap. She is hemodynamically stable and currently saturating well on nasal cannula. She will be discharged to home pending arrangement of home oxygen and bipap therapy. Pt demonstrates understanding of her diagnosis and agree with the discharge care and plan. - Time Spent with Patient Total time spent providing and/or coordinating discharge services: Greater than 30 minutes - Constitutional Vitals: Temp Pulse Resp BP Pulse Ox 98.0 F 96 18 149/79 92 04/25/17 07:52 04/25/17 09:41 04/25/17 07:52 04/25/17 07:52 04/25/17 09:41 General appearance: Present: cooperative, A&O X 3, morbidly obese, pleasant, no acute distress, answers questions appropriately - Head Head exam: Present: atraumatic, normocephalic - Eye Eye exam: Present: normal appearance, conjuntiva pink, sclera anicteric - Respiratory Respiratory exam: Present: CTAB. Absent: respiratory distress, wheezes - Cardiovascular Cardiovascular exam: Present: RRR, +S1, +S2. Absent: diastolic murmur, gallop, rubs, systolic murmur - GI/Abdominal GI/Abdominal exam: Present: distended (obese), normal bowel sounds, soft, no peritoneal signs. Absent: tenderness - Extremities Exam Extremities exam: Present: warm, radial pulses palpable and symetrical. Absent : calf tenderness, cyanotic, pedal edema - Neurological Exam Neurological exam: Present: alert, oriented X3 - Psychiatric Psychiatric exam: Present: normal affect, normal mood
[2017-04-25 15:57] VITALS: BP 106/76
[2017-04-26] MEDS ORDERED: predniSONE 20 MG TABLET PO SCH (09:00)
== END 2017-04-25 15:55 | disposition home or self-care (01) | DRG 189 ==
LOC: 2NNU 19:23 → EMEROO 19:23 → 2NNU 23:36
PROVIDERS: ADMIT Nurse Practitioner Family; ATTEND Internal Medicine